=== PATIENT | male | born 1955 | race Caucasian/White ===

== ENCOUNTER 2016-04-27 11:31 | Emergency (ER) | payer OTHER ==
[~2016-04-27] VITALS: Ht 175.3 cm; Wt 113.4 kg
[~2016-04-27 11:31] MED LIST: ASPIRIN81 M4 PO; ATENOLOL-CHLOR1 EACH PO; BACTRIM DS TAB1 EACH PO; DILAUDID2 M1 PO; FIBER GUMMIES2 GM; GARLIC1 EAC1; GLUCOPHAGE1000 M1 PO; HUMALOG100 UNIT/1 SQ; JANUVIA100 M1 PO; KEFLEX500 M1 PO; LANTUS SOL100 UNIT/1 SC; LOSARTAN POTASS50 M1 PO; OMEGA 3-6-9 11200 MG; PRAVASTATIN SOD20 M2 PO; VITAMIN C500 M7
--- NOTE | 2016-04-27 12:02 | ED UPPER/LOWER EXTREMITY COMPL ---
History of Present Illness General Chief Complaint: Lower Extremity Problems Stated Complaint: SIB URGENT CARE CELLULITIS TO LT LEG Source: patient Exam Limitations: no limitations Vital Signs & Intake/Output Vital Signs & Intake/Output Vital Signs Date Time Temp Pulse Resp B/P Pulse O2 O2 Flow FiO2 Ox Delivery Rate 04/27 1512 99.0 22 98 / 1355 99.2 79 18 124/58 95 Room Air 04/27 1137 97.0 86 18 135/68 95 Room Air Room Air Allergies Coded Allergies: No Known Allergies (02/19/16) Reconcile Medications Amoxicillin/Potassium Clav (Augmentin 875-125 Tablet) 875 MG-125 MG TABLET 1 TAB PO BID CELLULITIS Ascorbic Acid (Vitamin C) (Unknown Strength) CAPSULE.ER (Unknown Dose) DAILY SUPPLEMENT (Reported) Aspirin (Aspirin*) 81 MG TAB.CHEW 1 TAB PO DAILY CARDIAC (Reported) Atenolol/Chlorthalidone (Atenolol-Chlorthalidone 100-25) 100 MG-25 MG TABLET 1 TAB PO DAILY HTN (Reported) Dulaglutide (Trulicity) 1.5 MG/0.5 ML PEN.INJCTR 1.5 U SC QW DM (Reported) Fish Oil/Borage/Flax/Om3,6,9#1 ([facility] 3-6-9 1,200 MG Softgel) (Unknown Strength) CAPSULE (Unknown Dose) BID SUPPLEMENT (Reported) Garlic (Unknown Strength) TABLET (Unknown Dose) DAILY SUPPLEMENT (Reported) Insulin Glargine,Hum.rec.anlog (Lantus Solostar) 100 UNIT/ML (3 ML) INSULN.PEN 70 UNIT SC BID DIABETES (Reported) Losartan Potassium 50 MG TABLET 1 TAB PO DAILY CARDIAC (Reported) Metformin HCl (Glucophage) 1,000 MG TABLET 1 TAB PO BID DIABETES (Reported) Pravastatin Sodium 20 MG TABLET 1 TAB PO DAILY HPL (Reported) Sitagliptin Phosphate (Januvia) 100 MG TABLET 1 TAB PO DAILY DM (Reported) Tramadol HCl 50 MG TABLET 1 TAB PO BIDP PRN PAIN Triage Note: TRIAGE: 60 Y/O MALE PRESENTS WITH , SENT IN BY URGENT CARE FOR EVAL OF LEFT LOWER EXTREMITY CELLULITIS. REPORTS AREA IS 23 CM BY 18 CM. REPORTS FEBRILE LAST NIGHT - TOOK ADVIL. AFEBRILE IN TRIAGE. Triage Nurses Notes Reviewed? yes Onset: Gradual Duration: day(s): (3) Timing: recent history Severity: moderate Severity Numbers: 8 Pain/Injury Location: Left: Leg, Thigh. Method of Injury: unknown Modifying Factors: Improves With: immobilization. Worsens With: movement. HPI: Patient is a 60-year-old male with history of diabetes, hypertension presenting to the emergency department with chief complaint of left lower extremity pain, swelling and redness is worsening over the past 2 days. He reports that he had similar symptoms 3 months ago when he was diagnosed with cellulitis. He reports that last night he had tactile chills and fevers, took his blood glucose level which was close to 400. He reports malaise associated with this. He went to the walk-in clinic this morning and they told him to come to the emergency department for evaluation because they thought that he may need IV antibiotics. He did draw a line around the redness last night and it seemed to extend outside the line today as well brought him to the urgent care. Denies any nausea or vomiting. Denies taking anything at home to help with pain. Denies taking any antibiotics since onset of symptoms. Denies chest pain or palpitations. He does report left calf pain, noticed left lower extremity edema diffusely over the past couple days progressively getting worse. Pain is worse with movement and palpation. Patient also reporting left testicular pain since yesterday. He noticed some swelling yesterday which has seemed to subside today but reports that the pain is still lingering. Denies any trauma. No urinary symptoms. Denies any discharge. (DONAVAN ASHFORD) Past History Travel History Traveled to [place] past 21 day No Medical History Any Pertinent Medical History? see below for history Cardiovascular: hypertension Endocrine: diabetes Cancer(s): prostate cancer Surgical History Surgical History: cholecystectomy, prostatectomy, RIGHT GREAT TOE WOUND DEBRIDEMENT RIGHT GROIN ABSCESS/DRAIN Psychosocial History What is your primary language Lao Tobacco Use: Never used ETOH Use: denies use Illicit Drug Use: denies illicit drug use Family History Hx Contributory? No (DONAVAN ASHFORD) Review of Systems Review of Systems Constitutional: Reports: see HPI, chills, fever. Comments Review of systems: See HPI, All other systems negative. Constitutional, weight loss HEENT: No visual changes no sore throat no congestion Cardiovascular: No chest pain ,palpitation , orthopnea Skin, no jaundice Respiratory: No dyspnea cough sputum or hemoptysis GI: No nausea no vomiting : No dysuria No hematuria Muscle skeletal: no back pain, no neck pain, Neurologic: No numbness no confusion, no hanks Psych: No stress anxiety or depression,. Heme/endocrine: No bruising no bleeding no polyuria or polydipsia Immunology: No splenectomy or history of AIDS (DONAVAN ASHFORD) Physical Exam Physical Exam General Appearance: no apparent distress, alert, awake, comfortable, obese Comments: Well-developed well-nourished person in no acute distress HEENT: Pupils equally round and reactive to light and accommodation. Nose is atraumatic. Neck: Supple, no lymphadenopathy, normal range of motion without pain or tenderness Back: Nontender, no CVA tenderness. Cardiovascular: Regular rate and rhythms no murmurs rubs or gallops, normal JVP Respiratory: Chest nontender. No respiratory distress.breath sounds clear to auscultation bilaterally Abdomen: Soft, obese, nontender ,nondistended, no appreciable organomegaly. Normal bowel sounds. No ascites. No rebound or guarding. gu: Normal external genitalia, tender to palpation of the left testicle, no obvious edema, no palpable masses on exam. No penile discharge appreciated on exam. No palpable hernias. Extremity: No edema noted on the right lower extremity. There is nonpitting edema extending from the dorsum of the left leg extending all the way up the left thigh. Pedal pulses are 2+ bilaterally. Limited range of motion of left lower knee secondary to pain and swelling. Nontender to palpation over the left patella. Left calf is tenderness to palpation. No palpable cord. Neuro: Alert oriented x3, motor sensory normal, cranial nerves II through XII grossly intact. Skin: Erythematous area extending from the left groin that is patchy, blanchable , flat, extends down to the left calf. Warm to palpation over this area. Psych: Mood and affect is normal, memory and judgment is normal. (DONAVAN ASHFORD) Progress Differential Diagnosis: DVT, gout, cellulitis, electrolyte abnormality, sepsis Plan of Care: Orders Procedure Date/time Status LACTIC ACID 04/27 1501 Complete FingerStick- Glucose 04/27 1201 Active BLOOD CULTURE 04/27 1201 Active LACTIC ACID 04/27 1201 Complete COMPREHENSIVE METABOLIC PANEL 04/27 120 Complete CBC WITHOUT DIFFERENTIAL 04/27 1201 Complete Current Medications Sig/Jasvir Start time Last Medication Dose Stop Time Status Admin Ketorolac 15 MG ONCE ONE 04/27 1245 CAN Tromethamine 04/27 1246 (Toradol) Laboratory Tests 04/27/16 1453: Lactic Acid 1.7 04/27/16 1213: Anion Gap 12, Estimated GFR > 60, BUN/Creatinine Ratio 25.6 H, Glucose 238 H, Lactic Acid 2.2 H, Calcium 9.7, Total Bilirubin 0.9, AST 82 H, ALT 56, Alkaline Phosphatase 80, Total Protein 7.1, Albumin 3.6, Globulin 3.5, Albumin/ Globulin Ratio 1.0 L, CBC w Diff NO MAN DIFF REQ, RBC 4.63 L, MCV 88.9, MCH 29.7, RDW 15.1 H, MPV 11.0 H, Gran % 75.5 H, Lymphocytes % 11.5 L, Monocytes % 12.4 H, Eosinophils % 0.5, Basophils % 0.1, Absolute Granulocytes 8.5 H, Absolute Lymphocytes 1.3, Absolute Monocytes 1.4 H, Absolute Eosinophils 0.1, Absolute Basophils 0, PUBS MCHC 33.4 Microbiology 04/27 1230 BLOOD: Blood Culture - RECD 04/27 1213 BLOOD: Blood Culture - RECD Diagnostic Imaging: Viewed by Me: Ultrasound. Discussed w/RAD: Ultrasound. Radiology Impression: PATIENT: HOUSTON RUBI PRESENT AGE: 60 PATIENT ACCOUNT NO: [id number] : 56 LOCATION: [facility] ORDERING PHYSICIAN: DONAVAN MELGOZA SERVICE DATE: 04/27/16 EXAM TYPE: US - US-UNILATERAL VENOUS DOPPLER EXAMINATION: US TRIPLEX LOWER EXTREMITY, LEFT CLINICAL INFORMATION: Leg pain and swelling COMPARISON: None TECHNIQUE: Color- flow triplex imaging with spectral analysis and compression Doppler were performed on the left lower extremity. FINDINGS: Respiratory variation, normal compression and augmented flow are noted throughout the lower extremity. The visualized common femoral vein, superficial femoral vein, profunda femoral vein, popliteal vein and midcalf peroneal and posterior tibial venous segments show no evidence of deep venous thrombosis. There is no Armendariz's cyst. No popliteal artery aneurysm. Multiple inguinal lymph nodes are present. IMPRESSION: Normal triplex scan without evidence of deep venous thrombosis involving the left lower extremity. DICTATED BY: JEAN GALLEGO MD , PATIENT: HOUSTON RUBI PRESENT AGE: 60 PATIENT ACCOUNT NO: [id number] : 56 LOCATION: [facility] ORDERING PHYSICIAN: DONAVAN MELGOZA SERVICE DATE: 04/27/16 EXAM TYPE: US - US-TESTICULAR EXAMINATION: US TESTICULAR CLINICAL INFORMATION: 60- year-old man with left testicular pain. COMPARISON: None TECHNIQUE: Targeted grayscale and color and spectral Doppler assessment of the scrotum was performed. FINDINGS: The right testicle measures 4.7 x 1.9 x 2.9 cm, for an estimated volume of 18.3 mL. The left testicle measures 3.2 x 1.8 x 3.2 cm, for an estimated volume of 12.6 mL. The sonographic appearance of both testicles is normal. No mass or abnormal calcifications are visible. The epididymis is normal in appearance on both sides. Both testicles demonstrate normal color and spectral arterial and venous flow. There is a small hydrocele on the right side. IMPRESSION: Normal sonographic appearance of the scrotum. Small right hydrocele. Comments: On arrival patient is afebrile no acute distress. He does have obvious cellulitis left lower extremity. Cannot exclude DVT. Patient will go for ultrasound of the left lower extremity as well as the testicle. Patient medicated with IV Unasyn, IV fluids, IV Toradol for pain. Patient warmed of all lab work results and imaging study results were no signs of DVT. Likely cellulitis. Patient reports that symptoms are improving. Patient is afebrile here in the emergency department, slight elevation in white blood cell come. Patient started on oral antibiotics and will follow-up with his primary care physician early next week or return for worsening symptoms. (LINDA MELGOZA,DONAVAN) Departure Departure Time of Disposition: 1351 Disposition: HOME OR SELF CARE Condition: Stable Clinical Impression Primary Impression: Cellulitis Qualifiers: Site of cellulitis: extremity Site of cellulitis of extremity: lower extremity Laterality: left Qualified Code: L03.116 - Cellulitis of left lower limb Referrals: DAVID MCCALLUM DO (PCP/Family) Additional Instructions: Make a follow-up appointment with your primary care physician for this coming week. Take antibiotics as prescribed. Elevate your leg as much as possible. For severe pain take tramadol as prescribed. Return for worsening symptoms or concerns. Departure Forms: Customer Survey General Discharge Information Prescriptions: Current Visit Scripts Tramadol HCl 1 TAB PO BIDP PRN PAIN #10 TAB Amoxicillin/Potassium Clav (Augmentin 875-125 Tablet) 1 TAB PO BID #20 TAB (DONAVAN ASHFORD) PA/RACK WORKER Co-Sign Statement Statement: ED Attending supervision documentation- [] I saw and evaluated the patient. I have also reviewed all the pertinent lab results and diagnostic results. I agree with the findings and the plan of care as documented in the PA's/RACK WORKER's documentation. x I have reviewed the ED Record and agree with the PA's/RACK WORKER's documentation. [] Additions or exceptions (if any) to the PAs/RACK WORKER's note and plan are summarized below: [] (DELMY GARCIA,KYLE)
[2016-04-27] MEDS ORDERED: TRULICITY1.5 MG/0.5 SC (12:05)
[2016-04-27 12:46] LABS: ABSOLUTE BASOPHIL COUNT 0 /CUMM (0.0-0.2); ABSOLUTE EOSINOPHIL COUNT 0.1 /CUMM (0.0-0.7); ABSOLUTE GRANULOCYTE CT 8.5 /CUMM (1.4-6.5); ABSOLUTE LYMPH COUNT 1.3 /CUMM (1.2-3.4); ABSOLUTE MONOCYTE COUNT 1.4 /CUMM (0.10-0.60); BASOPHIL % 0.1 % (0.0-2.0); EOSINOPHIL % 0.5 % (0-5); GRANULOCYTE % 75.5 % (42.2-75.2); HEMATOCRIT 41.1 % (42-52); MEAN CORPUSCULAR HGB 29.7 PG (27.0-31.0); MEAN CORPUSCULAR HGB CONC 33.4 G/DL (33.0-37.0); MEAN CORPUSCULAR VOLUME 88.9 FL (80.0-94.0); PLATELET COUNT 96 /CUMM (130-400); RBC DISTRIBUTION WIDTH 15.1 % (11.5-14.5); RED BLOOD CELL CT 4.63 /CUMM (4.70-6.10); WHITE BLOOD CELL COUNT 11.3 /CUMM (4.8-10.8)
--- NOTE | 2016-04-27 13:27 | ULTRASOUND REPORT ---
EXAMINATION: US TRIPLEX LOWER EXTREMITY, LEFT CLINICAL INFORMATION: Leg pain and swelling COMPARISON: None TECHNIQUE: Color-flow triplex imaging with spectral analysis and compression Doppler were performed on the left lower extremity. FINDINGS: Respiratory variation, normal compression and augmented flow are noted throughout the lower extremity. The visualized common femoral vein, superficial femoral vein, profunda femoral vein, popliteal vein and midcalf peroneal and posterior tibial venous segments show no evidence of deep venous thrombosis. There is no Armendariz's cyst. No popliteal artery aneurysm. Multiple inguinal lymph nodes are present. IMPRESSION: Normal triplex scan without evidence of deep venous thrombosis involving the left lower extremity.
--- NOTE | 2016-04-27 13:40 | ULTRASOUND REPORT ---
EXAMINATION: US TESTICULAR CLINICAL INFORMATION: 60-year-old man with left testicular pain. COMPARISON: None TECHNIQUE: Targeted grayscale and color and spectral Doppler assessment of the scrotum was performed. FINDINGS: The right testicle measures 4.7 x 1.9 x 2.9 cm, for an estimated volume of 18.3 mL. The left testicle measures 3.2 x 1.8 x 3.2 cm, for an estimated volume of 12.6 mL. The sonographic appearance of both testicles is normal. No mass or abnormal calcifications are visible. The epididymis is normal in appearance on both sides. Both testicles demonstrate normal color and spectral arterial and venous flow. There is a small hydrocele on the right side. IMPRESSION: Normal sonographic appearance of the scrotum. Small right hydrocele.
[2016-04-27] MEDS ORDERED: TRAMADOL HCL50 M1 PO (13:53)
[2016-04-27] MEDS ORDERED: AUGMENTIN 875-1 EACH PO (13:53)
[2016-04-27 13:55] VITALS: BP 124/58
== END 2016-04-27 15:14 ==
LOC: ERH 11:31
PROVIDERS: Physician Assistant
DX: L03.314 Cellulitis of groin (principal); L03.116 Cellulitis of left lower limb; E11.9 Type 2 diabetes mellitus without complications; Z79.84 Long term (current) use of oral hypoglycemic drugs
CPT/HCPCS: 87040; 96361; 96374; 96375; J1885

== ENCOUNTER 2017-04-14 11:17 | Inpatient (IN) | payer OTHER ==
[~2017-04-14] VITALS: Ht 175.3 cm; Wt 111.1 kg
[~2017-04-14 11:17] MED LIST changes: +ANESTHESIA10 MG/1 M1 IV; +AUGMENTIN 875-1 EACH PO; +BASAGLAR K100 UNIT/1 SC; +HEPARIN-1/25000 UNI1 IV; +HUMALOG KW100 UNIT/1 SC; +JARDIANCE25 M1 PO; -OMEGA 3-6-9 11200 MG; +OMEGA 3-6-9 11200 MG PO; +PRAVASTATIN SOD40 M2 PO; +TRAMADOL HCL50 M1 PO; +TRULICITY1.5 MG/0.5 SC; +VITAMIN C500 M7 PO; +VITAMIN D1000 UNIT PO
--- NOTE | 2017-04-14 11:40 | ED GENERAL ADULT ---
See Addendum History of Present Illness General Chief Complaint: General Adult Stated Complaint: ABD CRAMPS, HIGH BLOOD SUGAR, BLACK STOOL Source: patient Exam Limitations: no limitations Vital Signs & Intake/Output Vital Signs & Intake/Output Vital Signs Date Time Temp Pulse Resp B/P B/P Pulse O2 O2 Flow FiO2 Mean Ox Delivery Rate 04/14 2101 83 112/62 04/14 1939 97.8 87 20 110/60 97 Room Air 04/14 1857 116/53 04/14 1847 98.2 66 18 89/51 99 Room Air 04/14 1643 97.7 84 18 104/51 98 Room Air 04/14 1407 97.7 85 20 113/55 99 Room Air 04/14 1137 96.7 103 80/43 98 Room Air Allergies Coded Allergies: No Known Allergies (02/19/16) Reconcile Medications Aspirin (Aspirin*) 81 MG TAB.CHEW 1 TAB PO DAILY HEART HEALTH (Reported) Atorvastatin Calcium 80 MG TABLET 1 TAB PO 1800 CHOLESTEROL (Reported) Carvedilol 12.5 MG TABLET 1 TAB PO BID HEART (Reported) Dulaglutide (Trulicity) 1.5 MG/0.5 ML PEN.INJCTR 1 INJ SC We DIABETES ( Reported) Empagliflozin (Jardiance) 25 MG TABLET 1 TAB PO DAILY DIABETES (Reported) Famotidine 20 MG TABLET 1 TAB PO BID GI (Reported) Hydralazine HCl 50 MG TABLET 1 TAB PO TID HEART (Reported) Hydrochlorothiazide 25 MG TABLET 1 TAB PO DAILY WATER RETENTION (Reported) Insulin Glargine,Hum.rec.anlog (Lantus Solostar) 100 UNIT/ML (3 ML) INSULN.PEN 20 UNIT SC QPM DIABETES (Reported) Insulin Lispro (Humalog) 100 UNIT/ML VIAL 5 UNIT SC TID DIABETES (Reported) Magnesium Oxide 400 MG TABLET 1 TAB PO BID SUPPLEMENT (Reported) Melatonin 3 MG TABLET 2 TAB PO QPM SLEEP (Reported) Metformin HCl 1,000 MG TABLET 1 TAB PO BID DIABETES (Reported) Mexiletine HCl 150 MG CAPSULE 1 TAB PO BID UNKNOWN (Reported) Potassium Chloride 20 MEQ TAB.ER.PRT 1 TAB PO DAILY SUPPLEMENT (Reported) Suvorexant (Belsomra) 20 MG TABLET 1 TAB PO QPM SLEEP (Reported) Ticagrelor (Brilinta) 90 MG TABLET 1 TAB PO BID BLOOD THINNER (Reported) Valsartan 320 MG TABLET 1 TAB PO DAILY HEART (Reported) Triage Note: TO ED WITH C/O ABD CRAMPING AND BLACK TARRY STOOLS SINCE LAST NIGHT. HX NV WITH STENTS 4 MONTHS AGO, TAKING BRILLINTA. +DIZZINESS. ALSO REPORTS BLOOD SUGARS >300 FOR THAT PAST COUPLE DAYS. Triage Nurses Notes Reviewed? yes Onset: Abrupt Duration: hour(s): Timing: recent history HPI: 04/14/17 12 PM 61-year-old male presents to the emergency department complaining of weakness, he says he recently had a cardiac arrest and NV. He status post stents. This is approximately one month ago. He was started on anticoagulation therapy. Now he's had black stools. He also has crampy lower abdominal pain. He also says his sugars have been running high. He denies chest pain or shortness of breath. He does admit to weakness. Past History Travel History Traveled to [place] past 21 day No Medical History Any Pertinent Medical History? see below for history Neurological: NONE EENT: NONE Cardiovascular: hypertension, hyperlipidemia Respiratory: obstructive sleep apnea Gastrointestinal: GERD Hepatic: NONE Renal: NONE Musculoskeletal: NONE Psychiatric: NONE Endocrine: diabetes Blood Disorders: NONE Cancer(s): prostate cancer PROVISIONING SPECIALIST/Reproductive: NONE History of MRSA: No History of VRE: No History of CDIFF: No Influenza Vaccine: 11/25/15 Surgical History Surgical History: cholecystectomy, prostatectomy, RIGHT GREAT TOE WOUND DEBRIDEMENT RIGHT GROIN ABSCESS/DRAIN Psychosocial History Who do you live with Spouse What is your primary language Palestinian Family History Family History, If Any: FATHER Coronary artery bypass surgery Hx Contributory? No Review of Systems Review of Systems Constitutional: Denies: fever. EENTM: Denies: visual changes. Respiratory: Denies: short of breath. Cardiovascular: Denies: chest pain. GI: Reports: abdominal pain. Genitourinary: Reports: no symptoms. Musculoskeletal: Reports: no symptoms. Skin: Denies: rash. Neurological/Psychological: Reports: no symptoms. Hematologic/Endocrine: Reports: see HPI. Immunologic/Allergic: Reports: no symptoms. Physical Exam Physical Exam General Appearance: alert, awake, anxious, moderate distress Head: atraumatic, normal appearance Eyes: Bilateral: normal appearance, PERRL, EOMI. Ears, Nose, Throat: normal pharynx, normal ENT inspection Neck: normal inspection, supple, full range of motion Respiratory: normal breath sounds, chest non-tender, no respiratory distress Cardiovascular: irregularly irregular Peripheral Pulses: 4+ radial (R), 4+ radial (L) Gastrointestinal: soft, non-tender Rectal: heme positive stool Back: normal range of motion Extremities: normal inspection Neurologic/Psych: no motor/sensory deficits, awake, alert, oriented x 3 Skin: intact, normal color, warm/dry Core Measures ACS in differential dx? Yes No ASA d/t Active Bleeding (GI bleed) CVA/TIA Diagnosis: No Sepsis Present: No Sepsis Focused Exam Completed? No Progress Differential Diagnoses I considered the following diagnoses in my evaluation of the patient: Plan of Care: Orders Procedure Date/time Status Nothing by Mouth 04/15 B Active CBC WITHOUT DIFFERENTIAL 04/15 0600 Active BASIC ELECTROLYTES PLUS BUN&CR 04/15 0600 Active EKG 04/15 0600 Active TROPONIN LEVEL 04/15 0000 Active CBC WITHOUT DIFFERENTIAL 04/15 0000 Active EKG 04/15 0000 Active Clear Liquid Diet 04/14 D Complete Vital Signs 04/14 1950 Active Teach/Educate 04/14 1950 Active Pain Treatment and Response 04/14 1950 Active Nutritional Intake, Monitor 04/14 1950 Active Isolation 04/14 1950 Active Intake & Output 04/14 1950 Active Patient Care Conference 04/14 1950 Active Activity/Ambulation 04/14 1950 Active TROPONIN LEVEL 04/14 1800 Complete CBC WITHOUT DIFFERENTIAL 04/14 1800 Complete EKG 04/14 1800 Active Pathway - chart 04/14 1626 Active Pathway - chart 04/14 1625 Active House Staff 04/14 1625 Active Patient Data 04/14 1625 Active Code Status 04/14 1625 Active Admit to inpatient 04/14 1526 Active Vital Signs 04/14 1526 Active Code Status 04/14 1526 Complete Patient Data 04/14 1511 Active FingerStick- Glucose 04/14 1232 Active Intake & Output 04/14 1221 Active EKG 04/14 1209 Active TROPONIN LEVEL 04/14 1206 Complete PROTHROMBIN TIME 04/14 1206 Complete COMPREHENSIVE METABOLIC PANEL 04/14 1206 Complete CBC WITHOUT DIFFERENTIAL 04/14 1206 Complete TYPE & SCREEN (NOT X-MATCH) 04/14 1206 Complete CONTIN. POSITIVE AIRWAY PRESS 04/14 UNK Active VTE Mechanical Prophylaxis 04/14 UNK Active Vital Signs 04/14 UNK Complete MISTAKE 04/14 UNK Active Telemetry/Cartoon Animator 04/14 UNK Active Hemoccult 04/14 UNK Active FingerStick- Glucose 04/14 UNK Complete PHYSICIAN CONSULT 04/14 UNK Active ECHOCARDIOGRAM 04/14 UNK Active Current Medications Sig/Jasvir Start time Last Medication Dose Stop Time Status Admin Aspirin 81 MG DAILY 04/15 1000 CAN (Aspirin) Carvedilol 12.5 MG BID 04/14 220 AC 04/14 (Coreg) 210 Insulin Detemir 20 UNITS QPM 04/14 2199 AC 04/14 (Levemir) 2099 Magnesium Oxide 400 MG BID 04/14 2199 AC 04/14 (Mag-Ox) 2100 Melatonin 6 MG QPM 04/14 2199 AC 04/14 (Melatonin) 2099 Mexiletine HCl 150 MG BID 04/14 2199 AC 04/14 (Mexitil 150MG 2100 Capsule) Ticagrelor 90 MG BID 04/14 2199 CAN (Brilinta) Atorvastatin Calcium 80 MG 1800 04/14 1800 AC 04/14 (Lipitor) 2056 Insulin Aspart 0 TIDAC 04/14 1715 AC (NovoLOG) Acetaminophen 650 MG Q6P PRN 04/14 1630 AC (Tylenol) Pantoprazole Sodium 40 MG DAILY 04/14 1630 AC 04/14 (Protonix) 1714 Sodium Chloride 1,000 ML .[id number] 04/14 1630 AC 04/14 (Normal Saline 0.9%) 04/15 1909 1714 Laboratory Tests 04/14/17 1843: Troponin I 0.77 *H, CBC w Diff NO MAN DIFF REQ, RBC 3.05 L, MCV 87.6, MCH 27.9, MCHC 31.8 L, RDW 15.4 H, MPV 10.0, Gran % 62.3, Lymphocytes % 22.2, Monocytes % 14.5 H, Eosinophils % 0.7, Basophils % 0.3, Absolute Granulocytes 6.7 H, Absolute Lymphocytes 2.4, Absolute Monocytes 1.6 H, Absolute Eosinophils 0.1, Absolute Basophils 0 04/14/17 1207: Anion Gap 13, Estimated GFR > 60, BUN/Creatinine Ratio 53.6 H, Glucose 249 H, Calcium 9.6, Total Bilirubin 0.5, AST 38, ALT 32, Alkaline Phosphatase 63, Troponin I 0.94 *H, Total Protein 6.5, Albumin 3.5, Globulin 3.0, Albumin/ Globulin Ratio 1.2, PT 13.0 H, INR 1.24 H, CBC w Diff MAN DIFF ORDERED, RBC 3.25 L, MCV 87.3, MCH 28.6, MCHC 32.8 L, RDW 15.5 H, MPV 10.2, Gran % 50.4, Lymphocytes % 26.0, Monocytes % 21.2 H, Eosinophils % 1.9, Basophils % 0.5, Absolute Granulocytes 4.4, Absolute Lymphocytes 2.3, Absolute Monocytes 1.9 H, Absolute Eosinophils 0.2, Absolute Basophils 0, Platelet Estimate ADEQUATE, Hypochromic-Microcytic 2+, Anisocytosis 1+ Initial ED EKG: NSR Prior EKG: unchanged Departure Departure Disposition: STILL A PATIENT Condition: Stable Clinical Impression Primary Impression: GI bleed Secondary Impressions: Anemia, Coagulopathy, Elevated troponin Referrals: Margot Pierre DO (PCP/Family) Departure Forms: Customer Survey General Discharge Information Admission Note Spoke With: Garry GARCIA,Travis Anderson Documentation of Exam: Documentation of any treatments & extenuating circumstances including Concerns Regarding Discharge (functional status, medication knowledge or non-compliance, living conditions, etc.) that warrant an admission rather than observation: [The patient needs admission for serial hemoglobin and hematocrits, trending of cardiac enzymes, cardiology consultation-spoke with Dr. Beasley who agreed with admission to telemetry, spoke to Dr. Micah Quintanilla will consult, spoke to Dr. Lan accepted the patient to telemetry] Critical Care Note Critical Care Note Critical Care Time: 30-74 min
[2017-04-14] MEDS ORDERED: METFORMIN HCL1000 M1 PO (12:11)
[2017-04-14] MEDS ORDERED: JARDIANCE25 M1 PO (12:12)
[2017-04-14] MEDS ORDERED: BRILINTA90 M1 PO (12:13)
[2017-04-14] MEDS ORDERED: LANTUS SOL100 UNIT/1 SC (12:13)
[2017-04-14] MEDS ORDERED: MEXILETINE HCL150 M1 PO (12:14)
[2017-04-14] MEDS ORDERED: MELATONIN3 M4 PO (12:14)
[2017-04-14] MEDS ORDERED: POTASSIUM CHLO20 ME2 PO (12:14)
[2017-04-14] MEDS ORDERED: HYDRALAZINE HCL50 M1 PO (12:16)
[2017-04-14] MEDS ORDERED: FAMOTIDINE20 M1 PO (12:16)
[2017-04-14] MEDS ORDERED: HUMALOG100 UNIT/2 SC (12:16)
[2017-04-14] MEDS ORDERED: HYDROCHLOROTHIA25 M1 PO (12:16)
[2017-04-14] MEDS ORDERED: ASPIRIN81 M4 PO (12:17)
[2017-04-14] MEDS ORDERED: CARVEDILOL12.5 M1 PO (12:17)
[2017-04-14] MEDS ORDERED: ATORVASTATIN CA80 M1 PO (12:17)
[2017-04-14] MEDS ORDERED: BELSOMRA20 M1 PO (12:18)
[2017-04-14] MEDS ORDERED: MAGNESIUM OXID400 M1 PO (12:18)
[2017-04-14] MEDS ORDERED: TRULICITY1.5 MG/0.5 SC (12:18)
[2017-04-14] MEDS ORDERED: VALSARTAN320 M1 PO (12:19)
[2017-04-14 12:20] LABS: ABSOLUTE BASOPHIL COUNT 0 /CUMM (0.0-0.2); ABSOLUTE EOSINOPHIL COUNT 0.2 /CUMM (0.0-0.7); ABSOLUTE GRANULOCYTE CT 4.4 /CUMM (1.4-6.5); ABSOLUTE LYMPH COUNT 2.3 /CUMM (1.2-3.4); ABSOLUTE MONOCYTE COUNT 1.9 /CUMM (0.10-0.60); BASOPHIL % 0.5 % (0.0-2.0); EOSINOPHIL % 1.9 % (0-5); GRANULOCYTE % 50.4 % (42.2-75.2); HEMATOCRIT 28.4 % (42-52); MEAN CORPUSCULAR HGB 28.6 PG (27.0-31.0); MEAN CORPUSCULAR HGB CONC 32.8 G/DL (33.0-37.0); MEAN CORPUSCULAR VOLUME 87.3 FL (80.0-94.0); MEAN PLATELET VOLUME 10.2 FL (7.4-10.4); PLATELET COUNT 171 /CUMM (130-400); RBC DISTRIBUTION WIDTH 15.5 % (11.5-14.5); RED BLOOD CELL CT 3.25 /CUMM (4.70-6.10); WHITE BLOOD CELL COUNT 8.8 /CUMM (4.8-10.8)
--- NOTE | 2017-04-14 14:58 | CT SCAN REPORT ---
EXAMINATION: CT ABDOMEN AND PELVIS WITH CONTRAST CLINICAL INFORMATION: Gastrointestinal bleed and abdominal pain. COMPARISON: 12/08/2016 TECHNIQUE: Multidetector volumetric imaging was performed of the abdomen and pelvis following IV administration of 95 mL of Optiray 320 intravenous contrast. Sagittal and coronal reformatted images were obtained on the technologist's workstation. DLP: 1005 mGy-cm FINDINGS: LUNG BASES: Dual-chamber cardiac pacemaker/ICD in place. Atherosclerotic calcification of coronary arteries. No pericardial or pleural effusion. No acute findings in the visualized lung bases. LIVER, GALLBLADDER, AND BILIARY TREE: The cirrhotic liver has nodular contour and the left lobe is hypertrophied. No evidence of hepatic mass, intrahepatic bile duct dilatation or other new finding compared to 12/08/2016. Gallbladder is surgically absent. PANCREAS: Unremarkable. SPLEEN: Prominent spleen measures up to 15 cm maximum dimension. ADRENAL GLANDS: Unremarkable. KIDNEYS AND URETERS: Kidneys are normal in size. 1 cm cortical cyst within the interpolar region of the right kidney. Also, there are small, subcentimeter sized cysts in each upper pole. Small peripelvic cysts of the left kidney. No nephrolithiasis or hydronephrosis. Bilateral perinephric edema, unchanged compared to 12/08/2016. BLADDER: Unremarkable. GASTROINTESTINAL TRACT: Stomach is well distended and has normal wall thickness. Bowel loops are normal in caliber. Appendix is normal. No focal bowel wall thickening or pericolonic fat stranding. No evidence of acute inflammation or obstruction along the gastrointestinal tract. No ascites or pneumoperitoneum. ABDOMINAL WALL: Small fat-containing umbilical hernia is unchanged. LYMPH NODES: The largest lymph node in the periportal region is 1.3 cm short axis dimension, unchanged compared to 12/08/2016. No retroperitoneal, iliac or mesenteric lymphadenopathy. Again noted are mildly enlarged lymph nodes of the left inguinal region, unchanged compared to 12/08/2016. VASCULAR: Mild atherosclerotic calcification of the aorta without aneurysm. Inferior vena cava is unremarkable. PELVIC VISCERA: Status post prostatectomy no pelvic mass or free fluid. OSSEOUS STRUCTURES: No acute findings in the degenerated thoracolumbar spine. No aggressive osseous lesions. IMPRESSION: 1. No acute imaging findings within the abdomen or pelvis compared to 12/08/2016. 2. Chronic cirrhosis and splenomegaly. Stable appearance of the reactive periportal lymphadenopathy. No ascites. 3. No acute findings along the gastrointestinal tract. 4. Mildly enlarged left inguinal lymph nodes remain unchanged.
--- NOTE | 2017-04-14 15:24 | History & Physical ---
Hitesh GARCIA,Yenni 04/14/17 1517: General Information and HPI MD Statement: I have seen and personally examined HOUSTON RUBI and documented this H&P. The patient is a 61 year old M who presented with a patient stated chief complaint of []. Source of Information: patient, family, old records Exam Limitations: no limitations History of Present Illness: Patient is a 61-year-old male with past medical history of hyperlipidemia, hypertension, diabetes, obstructive sleep apnea on CPAP, CAD status post recent stent 4, placed on December 10, 2016 at [place] and s/p AICD placement on December 18, 2016 presenting this admission with chief complaint of black tarry stools. Per patient he started experiencing diffuse abdominal cramping 1 day prior to admission. States he was awake most of the night due to the abdominal discomfort. Patient notes nothing improved or worsened the pain. Patient reports 2 dark black tarry bowel movements overnight. Patient denies any bright red blood per rectum or blood on the toilet paper. Patient denies nausea, vomitting or hematemesis. Patient endorses lightheadedness and dizzines. Patient also notes weakness over the past 1 day and states that it feels as though he had just been discharged from the hospital during his previous admission. Patient notes that prior to this past day he has felt more energetic and much stronger due to cardiac rehab. Patient was previously admitted to [facility] on December 09 for leg cellulitis. During that admission he had Vtach and cardiac arrest and he was found to have elevated troponin in the 50s. Patient was subsequently transferred to [place] where he had drug eluting stents placed and an AICD. Patient was started on aspirin and brilinta. Patient has not had any issues up until this admission. Patient notes he has never had these type of symptoms in the past. Patient's hand washer is Dr. Kruger. Allergies/Medications Allergies: Coded Allergies: No Known Allergies (02/19/16) Home Med list Aspirin (Aspirin*) 81 MG TAB.CHEW 1 TAB PO DAILY HEART HEALTH (Reported) Atorvastatin Calcium 80 MG TABLET 1 TAB PO 1800 CHOLESTEROL (Reported) Carvedilol 12.5 MG TABLET 1 TAB PO BID HEART (Reported) Dulaglutide (Trulicity) 1.5 MG/0.5 ML PEN.INJCTR 1 INJ SC We DIABETES ( Reported) Empagliflozin (Jardiance) 25 MG TABLET 1 TAB PO DAILY DIABETES (Reported) Famotidine 20 MG TABLET 1 TAB PO BID GI (Reported) Hydralazine HCl 50 MG TABLET 1 TAB PO TID HEART (Reported) Hydrochlorothiazide 25 MG TABLET 1 TAB PO DAILY WATER RETENTION (Reported) Insulin Glargine,Hum.rec.anlog (Lantus Solostar) 100 UNIT/ML (3 ML) INSULN.PEN 20 UNIT SC QPM DIABETES (Reported) Insulin Lispro (Humalog) 100 UNIT/ML VIAL 5 UNIT SC TID DIABETES (Reported) Magnesium Oxide 400 MG TABLET 1 TAB PO BID SUPPLEMENT (Reported) Melatonin 3 MG TABLET 2 TAB PO QPM SLEEP (Reported) Metformin HCl 1,000 MG TABLET 1 TAB PO BID DIABETES (Reported) Mexiletine HCl 150 MG CAPSULE 1 TAB PO BID UNKNOWN (Reported) Potassium Chloride 20 MEQ TAB.ER.PRT 1 TAB PO DAILY SUPPLEMENT (Reported) Suvorexant (Belsomra) 20 MG TABLET 1 TAB PO QPM SLEEP (Reported) Ticagrelor (Brilinta) 90 MG TABLET 1 TAB PO BID BLOOD THINNER (Reported) Valsartan 320 MG TABLET 1 TAB PO DAILY HEART (Reported) Past History Travel History Traveled to [place] past 21 day No Medical History Neurological: NONE EENT: NONE Cardiovascular: hypertension, hyperlipidemia, myocardial infarction Respiratory: obstructive sleep apnea Gastrointestinal: GERD Hepatic: NONE Renal: NONE Musculoskeletal: NONE Psychiatric: NONE Endocrine: diabetes Blood Disorders: NONE Cancer(s): prostate cancer 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 Cardiovascular: Reports: see HPI, peripheral edema. Respiratory: Reports: no symptoms. GI: Reports: see HPI. Genitourinary: Reports: no symptoms. Musculoskeletal: Reports: no symptoms. Skin: Reports: no symptoms. Neurological/Psychological: Reports: numbness, weakness. Hematologic/Endocrine: Reports: no symptoms. Exam & Diagnostic Data Last 24 Hrs of Vital Signs/I&O Vital Signs Date Time Temp Pulse Resp B/P B/P Pulse O2 O2 Flow FiO2 Mean Ox Delivery Rate 04/14 1407 97.7 85 20 113/55 99 Room Air 04/14 1137 96.7 103 80/43 98 Room Air Intake & Output 04/14 1600 04/14 0800 04/14 0000 Intake Total 1000 Output Total Balance 1000 Intake, IV 1000 Patient 245 lb Weight Weight Reported by Patient Measurement Method Physical Exam General Appearance Alert, Oriented X3, Cooperative, No Acute Distress Skin Temp/Moisture Exam: Warm/Dry HEENT Atraumatic, PERRLA, EOMI, Mucous Membr. moist/pink Cardiovascular Regular Rate, Normal S1, Normal S2, No Murmurs Lungs Clear to Auscultation, Normal Air Movement Abdomen Normal Bowel Sounds, Soft, mild epigastric pain on deep palpation Neurological Normal Speech, Strength at 5/5 X4 Ext, Normal Tone, Sensation Intact, Cranial Nerves 3-12 NL Extremities No Clubbing, No Cyanosis, Normal Pulses, No Tenderness/Swelling, left lower extremity 1+ edema Vascular Normal Pulses, Pulses Symmetrical Last 24 Hrs of Labs/[place]: Laboratory Tests 04/14/17 1207: Anion Gap 13, Estimated GFR > 60, BUN/Creatinine Ratio 53.6 H, Glucose 249 H, Calcium 9.6, Total Bilirubin 0.5, AST 38, ALT 32, Alkaline Phosphatase 63, Troponin I 0.94 *H, Total Protein 6.5, Albumin 3.5, Globulin 3.0, Albumin/ Globulin Ratio 1.2, PT 13.0 H, INR 1.24 H, CBC w Diff MAN DIFF ORDERED, RBC 3.25 L, MCV 87.3, MCH 28.6, MCHC 32.8 L, RDW 15.5 H, MPV 10.2, Gran % 50.4, Lymphocytes % 26.0, Monocytes % 21.2 H, Eosinophils % 1.9, Basophils % 0.5, Absolute Granulocytes 4.4, Absolute Lymphocytes 2.3, Absolute Monocytes 1.9 H, Absolute Eosinophils 0.2, Absolute Basophils 0, Platelet Estimate ADEQUATE, Hypochromic-Microcytic 2+, Anisocytosis 1+ Diagnostic Data Other Results CT Abdomen/Pelvis w/contrast: 1. No acute imaging findings within the abdomen or pelvis compared to 12/08/2016. 2. Chronic cirrhosis and splenomegaly. Stable appearance of the reactive periportal lymphadenopathy. No ascites. 3. No acute findings along the gastrointestinal tract. 4. Mildly enlarged left inguinal lymph nodes remain unchanged. Assessment/Plan Assessment: Patient is a 61-year-old male with past medical history of hyperlipidemia, hypertension, diabetes, obstructive sleep apnea on CPAP, CAD status post recent stent 4, placed on December 10, 2016 at [place] and s/p AICD placement on December 18, 2016 presenting this admission with chief complaint of black tarry stools. Patient will be admitted to telemetry for management of the followin. Anemia likely 2/2 to GI Bleed - Admit to telemetry - IV NS - Monitor CBC - Guiac all stools - GI consult - NPO after midnight for EGD tomorrow - GI prophylaxis with IV protonix BID - GI consulted. Appreciate recommendations - Guiac all stool, monitor vitals including orthostats 2. Elevated troponin. Likely Demand Ischemia/Type II [place] - admit and monitor on tele - serial EKG and troponin - cardiology consult - ECHO 3. CAD s/p drug-eluting stents (x4) and AICD - Please continue carvedilol, atrovastatin - hold aspirin and brilinta per cardiology 4. Electrolyte abnormalities: Hyperkalemia - monitor K+ - monitor for EKG changes 5. Chronic conditions: HUGH, HTN, DM, HLD - continue CPAP ( to bring patient's machine from home) - hold antihypertensives in setting of GI bleed - accucheck, insulin SS and levemir 20 units qhs - continue atorvastatin Code: full code DVT prophylaxis: mechanical only in setting of GI bleed NPO As Ranked By This Provider Problem List: 1. GI bleed 2. Anemia 3. Elevated troponin Core Measures/Misc (11/10) Acute Coronary Syndrome ACS Diagnosis: No Congestive Heart Failure Congestive Heart Failure Diagnosis No Cerebrovascular Accident CVA/TIA Diagnosis: No VTE (View Protocol) VTE Risk Factors Age>40 No Mechanical VTE Prophylaxis d/t N/A MechProphylax Ordered No VTE Pharm Prophylaxis d/t Bleeding (Active) Sepsis (View protocol) Sepsis Present: Ra Hernadez 04/14/17 1736: Resident Review Statement Resident Statement: examined this patient, discussed with psychology intern, agreed with psychology intern, discussed with family, reviewed EMR data (avail), discussed with nursing , discussed with case mgmt, reviewed images, amended to note Other Findings: This is a 61-year-old male with past medical history significant for coronary artery disease, [place], status post 4 drug-eluting stents placement in November 2016, ICD placement 12/18/2016, cardiac arrest status post CPR and intubation in 12/09, type 2 diabetes mellitus, hypertension, hyperlipidemia, insomnia, GERD, obstructive sleep apnea on CPAP, prostate cancer status post prostatectomy presented to the emergency room for evaluation of black tarry stools since last night. Patient was admitted to [facility] in November 2016 for left leg cellulitis. Hospital course was complicated with cardiac arrest, pulseless V. tach, status post CPR and shock, intubation. Troponin was elevated up to 52. Patient was transferred to [facility] for stent placement. He underwent 4 drug-eluting stents on 12/10/2016, ICD placement 12/18/2016. Since then he has been taking aspirin 81 mg and brilinta 90 twice daily. Patient reports abdominal cramps since last night associated with 2 episodes of black tarry stools. Denies any nausea, vomiting, severe abdominal pain, hematemesis, hematochezia. This is the first time he noticed black colored stools since he started taking aspirin and brilinta. Patient denies any dizziness or lightheadedness, chest pain, shortness of breath, palpitations. However he reports generalized weakness. Denies taking [id number] pain medications, and NSAIDS. Patient denies any fever, chills, palpitations, chest pain, short of breath, nausea, vomiting, change in bladder habits. He has been following up with hand washer closely. Off note he has been doing cardiac rehabilitation. He never smoked. Denies alcohol abuse/denies illicit drug abuse -- Vitals afebrile, heart rate 103, respiratory rate 20, blood pressure 80/42 to 113/55 after normal saline 1 L bolus, saturating at 99 on room air. HEENT within normal limits. S1-S2 normal no murmurs, bilateral breath sounds were good. Abdomen soft, mild epigastric tenderness, nondistended. Left lower extremity more swollen compared to the right lower extremity. Pulses were intact. Pertinent labs WBC 8.8, hemoglobin 9.3 and hematocrit 28.4, platelet 171. Potassium 5.2 BUN 59 and creatinine 1.1. Glucose 214. Troponin 0.94. LFTs normal. Coags were normal. CAT scan abdomen was done which showed cirrhosis, splenomegaly, no ascites, no new changes compared to prior CAT scan. EKG showed sinus rhythm, rate 85, no ST-T wave changes. 1. Upper GI bleed/melena Patient presented with abdominal cramps and black tarry stools for 1 day. Off note patient is on aspirin, Brilinta since 12/10/2016. Denies any nausea, vomiting, hematemesis, hematochezia. Denies taking any NSAID's. No prior EGD or colonoscopy. He is hypotensive, improved with 1 L normal saline. Hemoglobin 9.3, hematocrit 28. Acute drop of hemoglobin 9.3 from 12.3. * Upper GI bleed/melena most likely from dual antiplatelet agents. * We'll admit to telemetry floor * telemetry monitoring * Type and screen * 2 large IV bore lines * Gentle hydration * IV Protonix 40 mg daily * Serial monitoring of H&H every 6 hours * Avoid NSAIDS * Nothing by mouth pending Gastro recommendations * Check orthostatic vitals * Hemoccult all the stools * monitor vitals closely every shift * Monitor closely for any blood pressure changes Type II [place] Patient was found to have elevated troponin 0.94 at the time of admission. Most likely demand ischemia given his prior history of [place]. * Cardiology consult * Serial troponin and EKG * Echocardiogram CAD status post drug-eluting stent placement Patient was admitted to [facility] in November 2016 for left leg cellulitis. Hospital course was complicated with cardiac arrest, pulseless V. tach, status post CPR and shock, intubation. Troponin was elevated up to 52. Patient was transferred to [facility] for stent placement. He underwent 4 drug-eluting stents on 12/10/2016, ICD placement 12/18/2016. Since then he has been taking aspirin 81 mg and brilinta 90 twice daily. * Please continue aspirin, bleeding, carvedilol, atorvastatin. Hyperkalemia potassium 5.2. Repeat potassium in a.m. and replete accordingly. No EKG changes suggestive of hyperkalemia Obstructive sleep apnea continue on CPAP Hypertension patient takes hydralazine, hydrochlorothiazide, valsartan at home. Please hold antihypertensives for now given his borderline blood pressure and GI bleed Diabetes mellitus Accu-Cheks, insulin sliding scale, Levemir 20 at bedtime. Hyperlipidemia continue statin Insomnia continue melatonin Patient is full code DVT prophylaxis alps given GI bleed Nothing by mouth pending Gastro evaluation for EGD
--- NOTE | 2017-04-14 16:21 | Admission Certification ---
Admission Certification Certification Statement - As attending physician, I certify that at the time of - admission, based on clinical presentation, severity of - symptoms, need for further diagnostic testing and - therapeutic interventions, and risk of adverse outcomes - without in-hospital treatment, in my clinical assessment, - this patient requires an acute hospital stay for a minimum - of two nights or longer. I have also considered psychsocial - factors such as support system, advanced age, financial - issues, cognitive issues, and failed out-patient treatments, - past re-admission history, safety of patient, and lack of - compliance as applicable. Specific rationale supporting this admission is: Acute GI bleed, Type 2 IN, Acute blood loss anemia
--- NOTE | 2017-04-14 16:29 | PN- Att Addend ---
Attending MD Review Statement Attending Statement Attending MD Statement: examined this patient, discuss w/resident/PA/DENTAL HYGIENE INSTRUCTOR, agreed w/resident/PA/DENTAL HYGIENE INSTRUCTOR, discussed with family, reviewed EMR data (avail), discussed w/ nursing Attending Assessment/Plan: Laboratory Tests 04/14/17 1207: Anion Gap 13, Estimated GFR > 60, BUN/Creatinine Ratio 53.6 H, Glucose 249 H, Calcium 9.6, Total Bilirubin 0.5, AST 38, ALT 32, Alkaline Phosphatase 63, Troponin I 0.94 *H, Total Protein 6.5, Albumin 3.5, Globulin 3.0, Albumin/ Globulin Ratio 1.2, PT 13.0 H, INR 1.24 H, CBC w Diff MAN DIFF ORDERED, RBC 3.25 L, MCV 87.3, MCH 28.6, MCHC 32.8 L, RDW 15.5 H, MPV 10.2, Gran % 50.4, Lymphocytes % 26.0, Monocytes % 21.2 H, Eosinophils % 1.9, Basophils % 0.5, Absolute Granulocytes 4.4, Absolute Lymphocytes 2.3, Absolute Monocytes 1.9 H, Absolute Eosinophils 0.2, Absolute Basophils 0, Platelet Estimate ADEQUATE, Hypochromic-Microcytic 2+, Anisocytosis 1+ Vital Signs Date Time Temp Pulse Resp B/P B/P Pulse O2 O2 Flow FiO2 Mean Ox Delivery Rate 04/14 1407 97.7 85 20 113/55 99 Room Air 04/14 1137 96.7 103 80/43 98 Room Air 61 yr old male with pmh of cardiac arrest in november 2016, CAD s/p 4 GILBERT placed in november 2016, DM , Obesity and HTN who presented to the ER with c/c of black stools and weakness. Pt is currently in a cardiac rehab program. Pt had 2 episodes of black tarry stools yesterday evening. Pt denies any chest pain and sob , denies any nausea or vomiting but did complain of abdominal cramping. Pt gives h/o being on asprin and brilinta. Pt drinks a lot of ice tea and sometimes drink mountain dew and is used to eating spicy food. ER labs showed hb of 9.3 and trop of 0.94. A/P- 1. Acute upper GI bleed in pt on dual antiplatelet therapy secondary to recent GILBERT. Will make him npo except for meds. Get GI consult and will start him on protonix drip and will monitor his h/h every 6 hours and will also type and xmatch for PRBC. 2. Positive troponin/ Type 2 IN- with recent h/o IN and Stent placement . will do serial troponins. repeat EKG in am. Will get cardiology consult and will monitor him on telemetry. Will cont his aniplatelet therapy for now. D/w pt and his significant other at bedside the care plan.
--- NOTE | 2017-04-14 17:14 | ULTRASOUND REPORT ---
EXAMINATION: US TRIPLEX LOWER EXTREMITY, LEFT CLINICAL INFORMATION: Pain and swelling COMPARISON: None TECHNIQUE: Color-flow triplex imaging with spectral analysis and compression Doppler were performed on the lower extremity. FINDINGS: Respiratory variation, normal compression and augmented flow are noted throughout the lower extremity. The visualized common femoral vein, superficial femoral vein, profunda femoral vein, popliteal vein and midcalf peroneal and posterior tibial venous segments show no evidence of deep venous thrombosis. There is no Armendariz's cyst. IMPRESSION: There is no sonographic evidence of deep venous thrombosis involving the lower extremity.
--- NOTE | 2017-04-14 18:40 | Cons- Gastroenterology ---
General Information and HPI Consulting Request Date of Consult: 04/14/17 Requested By: Travis Castañeda MD Reason for Consult: Melena Blood loss anemia History of Present Illness: The patient has a history of GERD for which he is been taking a PPI for several years. He recalls an EGD performed when he was living in [place] (he moved here about 2 years ago). In addition he had a colonoscopy approximately 3 years ago and believes he had polyps removed. Otherwise, he does not have chronic dyspepsia, abdominal pain, abnormal bowel movements, or history of GI bleeding. In November the patient had a cardiac arrest while in hospital for cellulitis, and was transferred to [place] where he underwent the insertion of possible coronary artery stents. He has been on aspirin and Brilinta since that time. He does not take NSAIDs. The patient had a black bowel movement yesterday evening, has had 2 today. The most recent was more formed. There's been no bright red blood per rectum, vomiting, or epigastric pain. He has had lower abdominal cramping. He denies chest pain, shortness of breath, syncope. There is no history of liver disease. Family history is negative for GI malignancy, peptic ulcer disease. No history of tobacco use or alcohol abuse. 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 Allergies/Medications Allergies: Coded Allergies: No Known Allergies (02/19/16) Home Med List: Aspirin (Aspirin*) 81 MG TAB.CHEW 1 TAB PO DAILY HEART HEALTH (Reported) Atorvastatin Calcium 80 MG TABLET 1 TAB PO 1800 CHOLESTEROL (Reported) Carvedilol 12.5 MG TABLET 1 TAB PO BID HEART (Reported) Dulaglutide (Trulicity) 1.5 MG/0.5 ML PEN.INJCTR 1 INJ SC We DIABETES ( Reported) Empagliflozin (Jardiance) 25 MG TABLET 1 TAB PO DAILY DIABETES (Reported) Famotidine 20 MG TABLET 1 TAB PO BID GI (Reported) Hydralazine HCl 50 MG TABLET 1 TAB PO TID HEART (Reported) Hydrochlorothiazide 25 MG TABLET 1 TAB PO DAILY WATER RETENTION (Reported) Insulin Glargine,Hum.rec.anlog (Lantus Solostar) 100 UNIT/ML (3 ML) INSULN.PEN 20 UNIT SC QPM DIABETES (Reported) Insulin Lispro (Humalog) 100 UNIT/ML VIAL 5 UNIT SC TID DIABETES (Reported) Magnesium Oxide 400 MG TABLET 1 TAB PO BID SUPPLEMENT (Reported) Melatonin 3 MG TABLET 2 TAB PO QPM SLEEP (Reported) Metformin HCl 1,000 MG TABLET 1 TAB PO BID DIABETES (Reported) Mexiletine HCl 150 MG CAPSULE 1 TAB PO BID UNKNOWN (Reported) Potassium Chloride 20 MEQ TAB.ER.PRT 1 TAB PO DAILY SUPPLEMENT (Reported) Suvorexant (Belsomra) 20 MG TABLET 1 TAB PO QPM SLEEP (Reported) Ticagrelor (Brilinta) 90 MG TABLET 1 TAB PO BID BLOOD THINNER (Reported) Valsartan 320 MG TABLET 1 TAB PO DAILY HEART (Reported) Current Medications: Current Medications Sig/Jasvir Start time Last Medication Dose Route Stop Time Status Admin Acetaminophen 650 MG Q6P PRN 04/14 1630 AC PO Aspirin 81 MG DAILY 04/15 1000 AC PO Atorvastatin Calcium 80 MG 1800 04/14 1800 AC PO Carvedilol 12.5 MG BID 04/14 2200 AC PO Insulin Aspart 0 TIDAC 04/14 1715 AC SC Insulin Detemir 20 UNITS QPM 04/14 2200 AC SC Magnesium Oxide 400 MG BID 04/14 2200 AC PO Melatonin 6 MG QPM 04/14 2200 AC PO Mexiletine HCl 150 MG BID 04/14 2200 AC PO Pantoprazole Sodium 0 .STK-MED ONE 04/14 1711 DC IV Pantoprazole Sodium 40 MG DAILY 04/14 1630 AC 04/14 IV 1714 Sodium Chloride 1,000 ML .[id number] 04/14 1630 AC 04/14 IV 04/15 1909 1714 Sodium Chloride 1,000 ML BOLUS ONE 04/14 1215 DC 04/14 IV 04/14 1314 1220 Ticagrelor 90 MG BID 04/14 2200 AC PO Past History Travel History Traveled to [place] past 21 day No Medical History Neurological: NONE EENT: NONE Cardiovascular: hypertension, hyperlipidemia, myocardial infarction Respiratory: obstructive sleep apnea Gastrointestinal: GERD Hepatic: NONE Renal: NONE Musculoskeletal: NONE Psychiatric: NONE Endocrine: diabetes Blood Disorders: NONE 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 EENTM: Denies: icterus, epistaxis. Cardiovascular: Denies: chest pain, syncope. Respiratory: Denies: cough, short of breath. GI: Reports: see HPI. Genitourinary: Denies: dysuria, hematuria. Musculoskeletal: Denies: muscle stiffness, neck pain. Skin: Denies: jaundice, lesions. Neurological/Psychological: Denies: cognitive dysfunction, headache. Hematologic/Endocrine: Reports: bleeding. Denies: bruising, polyuria. Exam & Diagnostic Data Vital Signs and I&O Vital Signs Date Time Temp Pulse Resp B/P B/P Pulse O2 O2 Flow FiO2 Mean Ox Delivery Rate 04/14 1643 97.7 84 18 104/51 98 Room Air 04/14 1407 97.7 85 20 113/55 99 Room Air 04/14 1137 96.7 103 80/43 98 Room Air Intake & Output 04/14 1600 04/14 0400 04/13 1600 04/13 0400 04/12 1600 04/12 0400 Intake Total 1000 Output Total Balance 1000 Intake, IV 1000 Patient 245 lb Weight Weight Reported by Patient Measurement Method Physical Exam: Well-developed, well-nourished no apparent distress. Alert and oriented with normal cognition. Skin normal without rash, lesion, jaundice, petechiae, purpura, stigmata of chronic liver disease. No adenopathy. Sclera anicteric. No oropharyngeal lesion. Neck supple without thyromegaly or mass. Heart regular rhythm with 2/6 systolic murmur. Lungs clear bilaterally. Abdomen is soft and nondistended with normal bowel sounds; no tenderness, mass or organomegaly. Extremities without clubbing, or cyanosis. Trace pretibial edema. Distal pulses intact bilaterally. Results Pertinent Lab Results: Laboratory Tests 04/14 1207 Chemistry Sodium (137 - 145 mmol/L) 138 Potassium (3.5 - 5.1 mmol/L) 5.2 H Chloride (98 - 107 mmol/L) 102 Carbon Dioxide (22 - 30 mmol/L) 23 Anion Gap (5 - 16) 13 BUN (9 - 20 mg/dL) 59 H Creatinine (0.7 - 1.2 mg/dL) 1.1 Estimated GFR (>60 ml/min) > 60 BUN/Creatinine Ratio (7 - 25 %) 53.6 H Glucose (65 - 99 mg/dL) 249 H Calcium (8.4 - 10.2 mg/dL) 9.6 Total Bilirubin (0.2 - 1.3 mg/dL) 0.5 AST (17 - 59 U/L) 38 ALT (21 - 72 U/L) 32 Alkaline Phosphatase (< 127 U/L) 63 Troponin I (<0.11 ng/ml) 0.94 *H Total Protein (6.3 - 8.2 g/dL) 6.5 Albumin (3.5 - 5.0 g/dL) 3.5 Globulin (1.9 - 4.2 gm/dL) 3.0 Albumin/Globulin Ratio (1.1 - 2.2 %) 1.2 Coagulation PT (9.4 - 12.5 SEC) 13.0 H INR (0.90 - 1.17) 1.24 H Hematology CBC w Diff MAN DIFF ORDERED WBC (4.8 - 10.8 /CUMM) 8.8 RBC (4.70 - 6.10 /CUMM) 3.25 L Hgb (14.0 - 18.0 G/DL) 9.3 L Hct (42 - 52 %) 28.4 L MCV (80.0 - 94.0 FL) 87.3 MCH (27.0 - 31.0 PG) 28.6 MCHC (33.0 - 37.0 G/DL) 32.8 L RDW (11.5 - 14.5 %) 15.5 H Plt Count (130 - 400 /CUMM) 171 MPV (7.4 - 10.4 FL) 10.2 Gran % (42.2 - 75.2 %) 50.4 Lymphocytes % (20.5 - 51.1 %) 26.0 Monocytes % (1.7 - 9.3 %) 21.2 H Eosinophils % (0 - 5 %) 1.9 Basophils % (0.0 - 2.0 %) 0.5 Absolute Granulocytes (1.4 - 6.5 /CUMM) 4.4 Absolute Lymphocytes (1.2 - 3.4 /CUMM) 2.3 Absolute Monocytes (0.10 - 0.60 /CUMM) 1.9 H Absolute Eosinophils (0.0 - 0.7 /CUMM) 0.2 Absolute Basophils (0.0 - 0.2 /CUMM) 0 Platelet Estimate (ADEQUATE) ADEQUATE Hypochromic-Microcytic 2+ Anisocytosis 1+ Assessment/Plan Assessment/Recommendations: Melena/blood loss anemia. The patient was initially hypotensive but this corrected with IV fluid resuscitation. BUN is elevated suggesting an upper GI bleed. Vital signs have remained stable since initial evaluation. Recommendations * Clear liquid diet; nothing by mouth after midnight * 2 large-bore IVs * IV PPI twice a day * Type and screen * Check CBC every 8 hours; maintain hemoglobin greater than 8 with transfusion as necessary * Continue aspirin and antiplatelet therapy * Cardiology consultation * EGD tomorrow * Please call GI immediately with recurrent hypotension, tachycardia, significant melena, red/maroon blood per rectum, or hematemesis. Consult Acknowledgment - Thank you for your consult request.
[2017-04-14 19:10] LABS: ABSOLUTE BASOPHIL COUNT 0 /CUMM (0.0-0.2); ABSOLUTE EOSINOPHIL COUNT 0.1 /CUMM (0.0-0.7); ABSOLUTE GRANULOCYTE CT 6.7 /CUMM (1.4-6.5); ABSOLUTE LYMPH COUNT 2.4 /CUMM (1.2-3.4); ABSOLUTE MONOCYTE COUNT 1.6 /CUMM (0.10-0.60); BASOPHIL % 0.3 % (0.0-2.0); EOSINOPHIL % 0.7 % (0-5); GRANULOCYTE % 62.3 % (42.2-75.2); HEMATOCRIT 26.7 % (42-52); MEAN CORPUSCULAR HGB 27.9 PG (27.0-31.0); MEAN CORPUSCULAR HGB CONC 31.8 G/DL (33.0-37.0); MEAN CORPUSCULAR VOLUME 87.6 FL (80.0-94.0); PLATELET COUNT 168 /CUMM (130-400); RBC DISTRIBUTION WIDTH 15.4 % (11.5-14.5); RED BLOOD CELL CT 3.05 /CUMM (4.70-6.10); WHITE BLOOD CELL COUNT 10.7 /CUMM (4.8-10.8)
[2017-04-14 19:39] VITALS: BP 110/60
--- NOTE | 2017-04-14 21:46 | Cons- Cardiology ---
General Information and HPI Consulting Request Date of Consult: 04/14/17 Requested By: Travis Castañeda MD History of Present Illness: This patient is a 61 year old male with an extensive cardiac history including recent PR with cardiac arrest with subsequent PCI and ICD placement. The patient came to the ER for evaluation of abdominal discomfort with dark, tarry appearing stools. He denies any significnt chest discomfort, shortness of breath, lightheadedness or palpitations. In the ER the patient was found to be anemic with a borderline elevated troponin. Allergies/Medications Allergies: Coded Allergies: No Known Allergies (02/19/16) Home Med List: Aspirin (Aspirin*) 81 MG TAB.CHEW 1 TAB PO DAILY HEART HEALTH (Reported) Atorvastatin Calcium 80 MG TABLET 1 TAB PO 1800 CHOLESTEROL (Reported) Carvedilol 12.5 MG TABLET 1 TAB PO BID HEART (Reported) Dulaglutide (Trulicity) 1.5 MG/0.5 ML PEN.INJCTR 1 INJ SC We DIABETES ( Reported) Empagliflozin (Jardiance) 25 MG TABLET 1 TAB PO DAILY DIABETES (Reported) Famotidine 20 MG TABLET 1 TAB PO BID GI (Reported) Hydralazine HCl 50 MG TABLET 1 TAB PO TID HEART (Reported) Hydrochlorothiazide 25 MG TABLET 1 TAB PO DAILY WATER RETENTION (Reported) Insulin Glargine,Hum.rec.anlog (Lantus Solostar) 100 UNIT/ML (3 ML) INSULN.PEN 20 UNIT SC QPM DIABETES (Reported) Insulin Lispro (Humalog) 100 UNIT/ML VIAL 5 UNIT SC TID DIABETES (Reported) Magnesium Oxide 400 MG TABLET 1 TAB PO BID SUPPLEMENT (Reported) Melatonin 3 MG TABLET 2 TAB PO QPM SLEEP (Reported) Metformin HCl 1,000 MG TABLET 1 TAB PO BID DIABETES (Reported) Mexiletine HCl 150 MG CAPSULE 1 TAB PO BID UNKNOWN (Reported) Potassium Chloride 20 MEQ TAB.ER.PRT 1 TAB PO DAILY SUPPLEMENT (Reported) Suvorexant (Belsomra) 20 MG TABLET 1 TAB PO QPM SLEEP (Reported) Ticagrelor (Brilinta) 90 MG TABLET 1 TAB PO BID BLOOD THINNER (Reported) Valsartan 320 MG TABLET 1 TAB PO DAILY HEART (Reported) Review of Systems Review of Systems: A review of systems is unremarkable. 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 Home Smoking Status: Never Smoked ETOH Use: denies use Illicit Drug Use: denies illicit drug use Exam & Diagnostic Data Vital Signs and I&O Vital Signs Date Time Temp Pulse Resp B/P B/P Pulse O2 O2 Flow FiO2 Mean Ox Delivery Rate 04/14 2101 83 112/62 04/14 1939 97.8 87 20 110/60 97 Room Air 04/14 1857 116/53 04/14 1847 98.2 66 18 89/51 99 Room Air 04/14 1643 97.7 84 18 104/51 98 Room Air 04/14 1407 97.7 85 20 113/55 99 Room Air 04/14 1137 96.7 103 80/43 98 Room Air Intake & Output 04/14 1600 04/14 0800 04/14 0000 04/13 1600 04/13 0800 04/13 0000 Intake Total 1000 Output Total Balance 1000 Intake, IV 1000 Patient 245 lb Weight Weight Reported by Patient Measurement Method Physical Exam: General: WD/WN male in NAD; alert and oriented x 3 HEENT: NC/AT, PERRL, EOMI Neck: no JVD, no carotid bruit Heart: RRR Lungs: clear bilaterally Abdomen: soft, NT, +ve bowel sounds Extremities: no edema Assessment/Plan Assessment/Plan * This patient has abdominal discomfort and evidence of GI bleeding on anticoagulation. The patient is greater than three months out from his PCI and both aspirin and Brilinta will be held. Obtain an GI consult. Follow his H/H. Begin a PPI. * This patient likely had extensive coronary artery disease and now demonstrates evidence of a type 2 PR from supply demand mismatch in the setting of anemia. Continue Carvedilol but hold hydralazine, HCTZ and Valsartan. Follow cardiac enzymes until peak. * Obtain an echocardigram. Consult Acknowledgment - Thank you for your consult request.
[2017-04-14 22:11] VITALS: BP 124/62
[2017-04-15 01:00] LABS: ABSOLUTE EOSINOPHIL COUNT 0.1 /CUMM (0.0-0.7); PLATELET COUNT 138 /CUMM (130-400)
[2017-04-15 01:11] LABS: ABSOLUTE BASOPHIL COUNT 0 /CUMM (0.0-0.2); ABSOLUTE LYMPH COUNT 2.5 /CUMM (1.2-3.4); ABSOLUTE MONOCYTE COUNT 1.3 /CUMM (0.10-0.60); BASOPHIL % 0.5 % (0.0-2.0); EOSINOPHIL % 0.9 % (0-5); GRANULOCYTE % 50.8 % (42.2-75.2); HEMATOCRIT 22.2 % (42-52); MEAN CORPUSCULAR HGB 28.2 PG (27.0-31.0); MEAN CORPUSCULAR HGB CONC 32.9 G/DL (33.0-37.0); MEAN CORPUSCULAR VOLUME 85.9 FL (80.0-94.0); RBC DISTRIBUTION WIDTH 15.2 % (11.5-14.5); RED BLOOD CELL CT 2.59 /CUMM (4.70-6.10); WHITE BLOOD CELL COUNT 7.9 /CUMM (4.8-10.8)
[2017-04-15 02:21] LABS: ABSOLUTE BASOPHIL COUNT 0 /CUMM (0.0-0.2); ABSOLUTE EOSINOPHIL COUNT 0.1 /CUMM (0.0-0.7); ABSOLUTE GRANULOCYTE CT 4.1 /CUMM (1.4-6.5); ABSOLUTE LYMPH COUNT 1.9 /CUMM (1.2-3.4); ABSOLUTE MONOCYTE COUNT 1.3 /CUMM (0.10-0.60); BASOPHIL % 0.6 % (0.0-2.0); GRANULOCYTE % 55.5 % (42.2-75.2); HEMATOCRIT 22.8 % (42-52); MEAN CORPUSCULAR HGB 28.2 PG (27.0-31.0); MEAN CORPUSCULAR HGB CONC 32.8 G/DL (33.0-37.0); MEAN CORPUSCULAR VOLUME 85.8 FL (80.0-94.0); MEAN PLATELET VOLUME 10.1 FL (7.4-10.4); PLATELET COUNT 137 /CUMM (130-400); RBC DISTRIBUTION WIDTH 15.2 % (11.5-14.5); RED BLOOD CELL CT 2.66 /CUMM (4.70-6.10); WHITE BLOOD CELL COUNT 7.4 /CUMM (4.8-10.8)
[2017-04-15 02:50] VITALS: BP 110/54
[2017-04-15 06:05] VITALS: BP 104/4; BP 104/64
--- NOTE | 2017-04-15 08:47 | PN- Housestaff ---
Hitesh GARCIA,Yenni 04/15/17 0847: Subjective Follow-up For: GI bleed Subjective: Patient was seen and examined today. Patient notes that his dizziness and weakness has improved after the blood transfusion. Patient had approximately 4 bowel movements since admission which he describes as black and tarry. Denies any bright red blood. Denies nausea/vomiting. Denies chest pain, shortness of breath, fever/chills, dysuria/hematuria. No acute events overnight. Review of Systems Constitutional: Reports: see HPI, weakness. Cardiovascular: Reports: see HPI. Respiratory: Reports: no symptoms. Gastrointestinal: Reports: see HPI. Genitourinary: Reports: no symptoms. Musculoskeletal: Reports: no symptoms. Neurological/Psychological: Reports: anxiety. Objective Last 24 Hrs of Vital Signs/I&O Vital Signs Date Time Temp Pulse Resp B/P B/P Pulse O2 O2 Flow FiO2 Mean Ox Delivery Rate 04/15 0905 110/60 04/15 0605 97.4 78 18 104/64 97 Room Air 04/15 0250 97.7 80 18 110/54 97 Room Air 04/14 2211 98.0 88 20 124/62 99 Room Air 04/14 2101 83 112/62 04/14 1939 97.8 87 20 110/60 97 Room Air 04/14 1857 116/53 04/14 1847 98.2 66 18 89/51 99 Room Air 04/14 1643 97.7 84 18 104/51 98 Room Air 04/14 1407 97.7 85 20 113/55 99 Room Air Intake & Output 04/15 1600 04/15 0800 04/15 0000 Intake Total 825 606 Output Total Balance 825 606 Intake, IV 725 150 Intake, Oral 100 456 Number 1 Bowel Movements Patient 245 lb Weight Weight Reported by Patient Measurement Method Physical Exam General Appearance: Alert, Oriented X3, Cooperative, No Acute Distress HEENT: Atraumatic, Mucous Membr. moist/pink Cardiovascular: Regular Rate, Normal S1, Normal S2 Lungs: Clear to Auscultation, Normal Air Movement Abdomen: Normal Bowel Sounds, Soft, No Tenderness Neurological: Normal Speech, Strength at 5/5 X4 Ext, Normal Tone, Sensation Intact, Cranial Nerves 3-12 NL Extremities: No Clubbing, No Cyanosis, Normal Pulses, No Tenderness/Swelling, trace pedal edema bilaterally greater on left Vascular: Normal Pulses, Pulses Symmetrical Current Medications: Current Medications Sig/Jasvir Start time Last Medication Dose Route Stop Time Status Admin Acetaminophen 650 MG Q6P PRN 04/14 1630 AC 04/14 PO 2113 Aspirin 81 MG DAILY 04/15 1000 CAN PO Atorvastatin Calcium 40 MG 1800 04/15 1800 AC PO Atorvastatin Calcium 80 MG 1800 04/14 1800 DC 04/14 PO 2056 Bisacodyl 5 MG 1900 04/15 1900 DC PO 04/15 1901 Bisacodyl 5 MG 1900 04/15 1900 CAN PO 04/15 1901 Bisacodyl 10 MG 1900 04/15 1900 AC PO 04/15 1901 Carvedilol 12.5 MG BID 04/14 2200 AC 04/15 PO 0905 Chlorhexidine 1 GM .STK-MED ONE 04/15 1344 DC Gluconate TOP 04/15 1345 Dextrose/Sodium 1,000 ML ONCE ONE 04/16 0000 AC Chloride IV 04/16 1959 Insulin Aspart 0 TIDAC 04/14 1715 AC SC 04/15 2355 Insulin Detemir 20 UNITS QPM 04/14 2200 AC 04/14 SC 2100 Insulin Human Regular 0 Q6 04/15 2359 AC SC Magnesium Oxide 400 MG BID 04/14 2200 AC 04/15 PO 1122 Melatonin 6 MG QPM 04/14 2200 AC 04/14 PO 2100 Mexiletine HCl 150 MG BID 04/14 2200 AC 04/15 PO 0904 Pantoprazole Sodium 40 MG BID 04/15 1000 AC 04/15 IV 0904 Pantoprazole Sodium 40 MG DAILY 04/14 1630 DC 04/14 IV 1714 Patient Medication 1 ED ONE ONE 04/15 1645 PA Teaching ED 04/15 1646 Patient Medication 1 ED ONE ONE 04/15 1630 PA Teaching ED 04/15 1631 Polyethylene Glycol 1 GAL ONCE ONE 04/15 1530 DC PO 04/15 1531 Sodium Chloride 1,000 ML .[id number] 04/14 1630 AC 04/15 IV 04/15 1909 0030 Ticagrelor 90 MG BID 04/14 2200 CAN PO Last 24 Hrs of Lab/[place]ady Results Last 24 Hrs of Labs/Mics: Laboratory Tests 04/15/17 0750: Anion Gap 11, Estimated GFR > 60, BUN/Creatinine Ratio 58.0 H, CBC w Diff NO MAN DIFF REQ, RBC 2.92 L, MCV 87.5, MCH 28.8, MCHC 33.0, RDW 15.6 H, MPV 9.9, Gran % 50.7, Lymphocytes % 29.6, Monocytes % 17.2 H, Eosinophils % 1.8, Basophils % 0.7, Absolute Granulocytes 3.5, Absolute Lymphocytes 2.1, Absolute Monocytes 1.2 H, Absolute Eosinophils 0.1, Absolute Basophils 0 04/15/17 0148: CBC w Diff NO MAN DIFF REQ, RBC 2.66 L, MCV 85.8, MCH 28.2, MCHC 32.8 L, RDW 15.2 H, MPV 10.1, Gran % 55.5, Lymphocytes % 25.5, Monocytes % 17.4 H, Eosinophils % 1.0, Basophils % 0.6, Absolute Granulocytes 4.1, Absolute Lymphocytes 1.9, Absolute Monocytes 1.3 H, Absolute Eosinophils 0.1, Absolute Basophils 0 04/15/17 0015: Troponin I 0.61 *H, CBC w Diff NO MAN DIFF REQ, RBC 2.59 L, MCV 85.9, MCH 28.2, MCHC 32.9 L, RDW 15.2 H, MPV 10.0, Gran % 50.8, Lymphocytes % 31.9, Monocytes % 15.9 H, Eosinophils % 0.9, Basophils % 0.5, Absolute Granulocytes 4.0, Absolute Lymphocytes 2.5, Absolute Monocytes 1.3 H, Absolute Eosinophils 0.1, Absolute Basophils 0 04/14/17 1843: Troponin I 0.77 *H, CBC w Diff NO MAN DIFF REQ, RBC 3.05 L, MCV 87.6, MCH 27.9, MCHC 31.8 L, RDW 15.4 H, MPV 10.0, Gran % 62.3, Lymphocytes % 22.2, Monocytes % 14.5 H, Eosinophils % 0.7, Basophils % 0.3, Absolute Granulocytes 6.7 H, Absolute Lymphocytes 2.4, Absolute Monocytes 1.6 H, Absolute Eosinophils 0.1, Absolute Basophils 0 Assessment/Plan Assessment: Patient is a 61-year-old male with past medical history of hyperlipidemia, hypertension, diabetes, obstructive sleep apnea on CPAP, CAD status post recent stent 4, placed on December 10, 2016 at [place] and s/p AICD placement on December 18, 2016 presenting this admission with chief complaint of black tarry stools. Patient's H&H overnight dropped from 8.5 to 7.3. Patient received 1 PRBC. Patient's H&H kevin this morning to 8.4. Patient has been hemodynamically stable. Patient had an EGD done which showed a small area of prepyloric ulcer, mild portal hypertensive gastropathy, small grade 1 esophageal varices and no active bleeding. Per GI recommendations patient was placed on a full liquid diet and is planned to have colonoscopy tomorrow. Patient will have bowel prep with Dulcolax tablets and GoLYTELY (half a gallon tonight and again tomorrow in the morning) starting after dinner. Patient is to be nothing by mouth after midnight. Patient will be admitted to telemetry for management of the followin. Anemia likely 2/2 to GI Bleed - Admit to telemetry - IV D5 normal saline to be started after midnight as patient is nothing by mouth for colonoscopy - Monitor CBC at 6PM today and 6AM tomorrow - GI prophylaxis with IV protonix BID - GI consulted. Appreciate recommendations - Guiac all stool, monitor vitals including orthostats 2. Elevated troponin. Likely Demand Ischemia/Type II NC Troponins trended down. No acute changes on EKG. - admit and monitor on tele - cardiology consult - ECHO pending 3. CAD s/p drug-eluting stents (x4) and AICD - Please continue carvedilol, atrovastatin - hold aspirin and brilinta per cardiology 4. Electrolyte abnormalities: Hyperkalemia has resolved - monitor K+ - monitor for EKG changes 5. Chronic conditions: HUGH, HTN, DM, HLD - continue CPAP ( to bring patient's machine from home) - hold antihypertensives in setting of GI bleed - accucheck, insulin SS and levemir 20 units qhs - continue atorvastatin Code: full code DVT prophylaxis: mechanical only in setting of GI bleed NPO after midnight for colonoscopy Problem List: 1. GI bleed 2. Anemia 3. 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, agreed w/resident/PA/OTHER SALES SUPPORT WORKER, reviewed EMR data (avail), discussed with nursing Attending Assessment/Plan: Laboratory Tests 04/15/17 0750: Anion Gap 11, Estimated GFR > 60, BUN/Creatinine Ratio 58.0 H, CBC w Diff NO MAN DIFF REQ, RBC 2.92 L, MCV 87.5, MCH 28.8, MCHC 33.0, RDW 15.6 H, MPV 9.9, Gran % 50.7, Lymphocytes % 29.6, Monocytes % 17.2 H, Eosinophils % 1.8, Basophils % 0.7, Absolute Granulocytes 3.5, Absolute Lymphocytes 2.1, Absolute Monocytes 1.2 H, Absolute Eosinophils 0.1, Absolute Basophils 0 04/15/17 0148: CBC w Diff NO MAN DIFF REQ, RBC 2.66 L, MCV 85.8, MCH 28.2, MCHC 32.8 L, RDW 15.2 H, MPV 10.1, Gran % 55.5, Lymphocytes % 25.5, Monocytes % 17.4 H, Eosinophils % 1.0, Basophils % 0.6, Absolute Granulocytes 4.1, Absolute Lymphocytes 1.9, Absolute Monocytes 1.3 H, Absolute Eosinophils 0.1, Absolute Basophils 0 04/15/17 0015: Troponin I 0.61 *H, CBC w Diff NO MAN DIFF REQ, RBC 2.59 L, MCV 85.9, MCH 28.2, MCHC 32.9 L, RDW 15.2 H, MPV 10.0, Gran % 50.8, Lymphocytes % 31.9, Monocytes % 15.9 H, Eosinophils % 0.9, Basophils % 0.5, Absolute Granulocytes 4.0, Absolute Lymphocytes 2.5, Absolute Monocytes 1.3 H, Absolute Eosinophils 0.1, Absolute Basophils 0 04/14/17 1843: Troponin I 0.77 *H, CBC w Diff NO MAN DIFF REQ, RBC 3.05 L, MCV 87.6, MCH 27.9, MCHC 31.8 L, RDW 15.4 H, MPV 10.0, Gran % 62.3, Lymphocytes % 22.2, Monocytes % 14.5 H, Eosinophils % 0.7, Basophils % 0.3, Absolute Granulocytes 6.7 H, Absolute Lymphocytes 2.4, Absolute Monocytes 1.6 H, Absolute Eosinophils 0.1, Absolute Basophils 0 04/14/17 1207: Anion Gap 13, Estimated GFR > 60, BUN/Creatinine Ratio 53.6 H, Glucose 249 H, Calcium 9.6, Total Bilirubin 0.5, AST 38, ALT 32, Alkaline Phosphatase 63, Troponin I 0.94 *H, Total Protein 6.5, Albumin 3.5, Globulin 3.0, Albumin/ Globulin Ratio 1.2, PT 13.0 H, INR 1.24 H, CBC w Diff MAN DIFF ORDERED, RBC 3.25 L, MCV 87.3, MCH 28.6, MCHC 32.8 L, RDW 15.5 H, MPV 10.2, Gran % 50.4, Lymphocytes % 26.0, Monocytes % 21.2 H, Eosinophils % 1.9, Basophils % 0.5, Absolute Granulocytes 4.4, Absolute Lymphocytes 2.3, Absolute Monocytes 1.9 H, Absolute Eosinophils 0.2, Absolute Basophils 0, Platelet Estimate ADEQUATE, Hypochromic-Microcytic 2+, Anisocytosis 1+ Vital Signs Date Time Temp Pulse Resp B/P B/P Pulse O2 O2 Flow FiO2 Mean Ox Delivery Rate 04/15 0905 110/60 04/15 0605 97.4 78 18 104/64 97 Room Air 04/15 0250 97.7 80 18 110/54 97 Room Air 04/14 2211 98.0 88 20 124/62 99 Room Air 04/14 2101 83 112/62 04/14 1939 97.8 87 20 110/60 97 Room Air 04/14 1857 116/53 04/14 1847 98.2 66 18 89/51 99 Room Air 04/14 1643 97.7 84 18 104/51 98 Room Air 04/14 1407 97.7 85 20 113/55 99 Room Air 04/14 1137 96.7 103 80/43 98 Room Air 61 yr old male with pmh of cardiac arrest in november 2016, CAD s/p 4 GILBERT placed in november 2016, DM , Obesity and HTN who presented to the ER with c/c of black stools and weakness. Pt is currently in a cardiac rehab program. Pt had 2 episodes of black tarry stools an evening prior to admission. Pt denies any chest pain and sob , denies any nausea or vomiting but did complain of abdominal cramping. Pt gives h/o being on asprin and brilinta. Pt drinks a lot of ice tea and sometimes drink mountain dew and is used to eating spicy food. ER labs showed hb of 9.3 and trop of 0.94. 1. Acute upper GI bleed in pt on dual antiplatelet therapy secondary to recent GILBERT. Keep him npo except for meds for EGD today. Cont on IV protonix . 2. Positive troponin/ Type 2 NC- with recent h/o NC and Stent placement . appreciated cardiology consult . Hold antiplatelet per cardiology. 3. Acute blood loss anemia- hb dropped. transfused 1 U PRBC today and hb better at 8.4
[2017-04-15 09:25] LABS: ABSOLUTE BASOPHIL COUNT 0 /CUMM (0.0-0.2); ABSOLUTE EOSINOPHIL COUNT 0.1 /CUMM (0.0-0.7); ABSOLUTE GRANULOCYTE CT 3.5 /CUMM (1.4-6.5); ABSOLUTE LYMPH COUNT 2.1 /CUMM (1.2-3.4); ABSOLUTE MONOCYTE COUNT 1.2 /CUMM (0.10-0.60); BASOPHIL % 0.7 % (0.0-2.0); EOSINOPHIL % 1.8 % (0-5); GRANULOCYTE % 50.7 % (42.2-75.2); HEMATOCRIT 25.6 % (42-52); MEAN CORPUSCULAR HGB 28.8 PG (27.0-31.0); MEAN CORPUSCULAR VOLUME 87.5 FL (80.0-94.0); MEAN PLATELET VOLUME 9.9 FL (7.4-10.4); PLATELET COUNT 136 /CUMM (130-400); RBC DISTRIBUTION WIDTH 15.6 % (11.5-14.5); RED BLOOD CELL CT 2.92 /CUMM (4.70-6.10); WHITE BLOOD CELL COUNT 6.9 /CUMM (4.8-10.8)
--- NOTE | 2017-04-15 13:31 | Proc Note Endoscopy ---
Endoscopy Procedure Medical History: unchanged (see [facility] consult) Mental Status: alert/oriented Heart/Lung Eval Prior to Sedation: within normal limits Candidate for Sedation? Yes Procedure Date: 04/15/17 Procedure Type: EGD w/biopsy Eyeglass Fitter: Rikki James MD. ASA Classification: III Indications: Melena, anemia. Instrument: diagnostic gastroscope Meds Received: MAC Patient's Tolerance: good Complications: none Extent Reached: second part of duodenum Procedure: After getting written informed consent the patient was placed in the left lateral decubitus position with pulse oximetry, cardiac monitoring, and supplemental oxygen given. A bite block was inserted and IV sedation was given until the desired effect was achieved. A high definition upper Olympus endoscope was then inserted into the mouth and advanced to the second portion of the duodenum with little difficulty. Retroflexed views and photodocumentation was obtained. Findings: Esophagus: The upper esophageal mucosa was grossly normal in appearance. Starting in the mid esophagus were several columns of small varices which nearly completely flattened with air insufflation. There were no red well markings or stigmata of recent hemorrhage. The Z line was located approximately 40 cm from the incisors and was normal in appearance. Stomach: Within the antrum there were moderate erythematous changes and there was one very small prepyloric ulcer less than 1 cm in size. Retroflexed views of the fundus showed a very subtle snake skin appearance suggestive of mild portal hypertensive gastropathy. There were no gastric varices or a hiatal hernia appreciated on retroflexed views. Distention and peristalsis of the stomach appeared normal. Random biopsies were obtained from the antrum with cold biopsy forceps and were sent to pathology for further evaluation. Duodenum: The duodenal bulb was mildly erythematous, but there were no ulcers or erosions appreciated. There was bile appreciated throughout the second portion of the duodenum. Impression: 1. Small clean-based prepyloric ulcer status post antral biopsies. 2. Mild portal hypertensive gastropathy. 3. Small grade 1 esophageal varices without stigmata of recent hemorrhage. 4. No active bleeding appreciated to the second portion of the duodenum. Recommendations: 1. Would transfer the patient back to the medical floor and advanced to a full liquid diet. 2. Follow CBCs every 12 hours and transfuse as needed to keep hemoglobin greater than 7 or as per cardiology recommendations. 3. Once he is taking oral intake would change him to a by mouth PPI twice a day. 4. If no objections from cardiology consideration should be given to change his beta clint to a nonselective beta clint such as nadolol or propranolol for variceal bleeding prophylaxis. 5. GI should be notified for signs of overt GI bleeding. 6. Will tentatively plan to pursue a diagnostic colonoscopy in the a.m. and would ask that he be prepped with 2 dulcolax tablets followed by a gallon of Colyte after a full liquid dinner. CC: Supriya Pierre DO, MD,Andres Kwong
[2017-04-15 14:46] VITALS: BP 120/72
--- NOTE | 2017-04-15 15:43 | PN- Student ---
Subjective Subjective: *Full H&P* ID: Jose Rooney is a 61 y.o. white male, born on [birth year], with PMHx of KS on s/p 4 GILBERT placement on 12/10/16 & ICD placement on 12/18/16, who prestented to the ED on 04/14/17 for weakness, abdominal pain, & black tarry stools for 1 day. CC: Abdominal cramps that started friday night & black tarry stools twice since this morning. HPI: Mr. Rooney states that on Friday evening, he began experiencing abdominal cramps which worsened throughout the night, making it difficult for him to sleep. His state that Mr. Rooney was moaning & groaning all through the night & could not stay still, to the point where she had to go sleep in the guest room. The patient reports that the pain was constant & crampy in nature, & 7-8/10 in severity. Mr. Rooney states that he woke up early this morning with the cramps still present and felt nauseated but did not vomit. He went to the bathroom at this time and states he was alarmed to see that his stool was black & tarry in appearance, he also reports that it was of loose consistency and sank to the bottom of the poilet bowl. Mr. Rooney states that quite a bit of strain was required inorder for him to have the bowel movement but that he did not experience any associated pain, only discomfort. Prior to this, Mr. Rooney states that he had not had any bowel movement for the past two days. The patient reports having a second episode of black tarry stools later in the day, worsening abdonimal cramps, and a feeling of increased light headedness & fatigue prompting him to come into the ED. He is also a type 2 diabetic and reports that over the past few days, his blood sugars have been > 300, which is unusualy as his diabetes was previously well controled. Patient states he has never had black tarry stools before and that this is his first time experiencing abdominal cramps and bowel movements of this nature. Mr. Rooney also discusses his anxiety in relation to when he had last come to [place] on December 09 2016, and was admitted for left lower extremity cellulitis, but he had Vtach & went into cardiac arrest overnight & was found to have troponins >50, without experiencing any prior cardiac symptoms. He was transfered to [place] & had placement of 4 drug eleuding stents on December 10, & then an ICD on December 18. Prior to his current presentation, he had been feeling very well over the past few weeks with ongoing participation in cardiac rehab. Patient reports losing 37 pounds during the first few weeks after his KS, but mostly attributes this to the extended hospital stay during which he was barely eating. He reports gaining three pounds since. Mr. Rooney also states that although he tries to maintain a fairly heart healthy diet & avoids processed sugar, he still eats spicy food & consumes a liter or so of iced tea every day as well as the occasional diet soda. He also endorses having GERD, which is currently managed with a PPI. He denies any hematemesis, and says that he hasn't noticed any bright red blood from his rectum, on used toilet paper, or in the toilet bowl. He also denies the use of NSAIDs or Pepto bismol & reports taking his current medications after a meal and never on an empty stomach. Mr. Rooney also denies any chest pain, palpitations, or shortness of breath at the time of admission; but he does report having HUGH due to which he is depent on CPAP & requires at least one pillow to sleep at night. He also states that last week, his PCP decreased his dose of Atrovastatin from 80mg to 40mg, for management of hypertriglyceridemia, because it was found that his LDL levels had become "dangerously low". Upon arrival to the ED, the patient was hypotensive and given IV fluids, he was also found to have elevated troponin at 0.94 & was admitted to telemetry. PMHx: - CAD - NSTEMI on 12/09/16 s/p 4 GILBERT placement on 12/10/16 - Vtach s/p AICD on 12/18/16 - HUGH on CPAP - HTN - HLD - DM 2 - Gallstones s/p Cholesystectomy 3 years ago - GERD - Prostate Cancer s/p Prostatectomy 4.5 years ago - Recurrent left leg cellulitis - Arthritis in right hand - Childhood heart murmur PSHx: - 4 GILBERT placement on 12/10/16 - AICD on 12/18/16 - Cholecystectomy 3 years ago - Prostatectomy 4.5 years ago - Colonoscopy w/ non-malignant polyp removal 3 years ago - Right Flor Abcess drainage - Right big toe wound debriment Home Medications: - Aspirin 81mg 1xday - Atorvastatin Calcium 40mg 1xday - Carvedilol 12.5mg 2xday - Dulaglutide 1.5mg/0.5mL SC injection 1xday - Empagliflozin 25mg 1xday - Famotidine 20mg 2xday - Hydralazine 50mg 3xday - Hydrochlorothiazide 25mg 1xday - Insulin Glargine 100units/mL 20 units SC Qpm - Insulin Lispro 100units/mL 5 units SC 3xday - Magnesium Oxide 400mg 2xday - Melatonin 3mg x2 Qpm - Metformin 1,000mg 2xday - Mexiletine 150mg 2xday - Potassium Chloride 20meq 1xday - Suvorexant 20mg Qpm - Ticagrelor 90mg 2xday - Valsartan 320mg 1xday Allergies: - Hay Fever FHx: - Father: CABG - Brother: Renal issues, Fatty Liver SHx: - Non-smoker - Very rare alcohol use - No illicity drug use - 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 [employer], loves 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 job - Happily for 33 years, has 2 adopted sons - Lives at home with ROS: - Constitutional: some generalized fatigue & lightheadedness; denies fevers, chills, or change in appetite - HEENT: denies vertigo, rhinorrhea, congestion, sore throat, hearing loss, diplopia - CV: endoses peripheral edema & orthopnea; denies any pallpitations, PND, or chest pain - Respiratory: endorses SOB with exertion & laying down; denies wheezing, cough, hemoptysis - GI: endorses diffuse abdominal pain & 2 episodes of melena with prior constipation; denies any diarrhea, hematochezia, change in frequency or consistency - Urinary: denies dysuria/polyuria, hematuria, hesitancy, urgency - : denies penile discharge, sores, testicular pain, hernias - MSK: right hand stiffness; denies swelling, tenderness in joints - Neurologic: Some loss of sensation & numbness in feet/lower extremities d/t diabetic neuropathy; denies any unsteadiness in gait or tingling - Skin: denies rashes, bruises - Psych: denies depressed or anxious mood, change in mood Otherwise as indicated in HPI Objective Objective: Last 24 Hrs of Vital Signs/I&O Vital Signs Date Time Temp Pulse Resp B/P B/P Pulse O2 O2 Flow FiO2 Mean Ox Delivery Rate 04/14 1407 97.7 85 20 113/55 99 Room Air 04/14 1137 96.7 103 80/43 98 Room Air Intake & Output 04/14 1600 04/14 0800 04/14 0000 Intake Total 1000 Output Total Balance 1000 Intake, IV 1000 Patient 245 lb Weight Weight Reported by Patient Measurement Method Physical Exam: - General: Well developed, pleasant, obese male, who is A&Ox3, with positive affect, appropriately dressed, and appears to be inno acute distress. - Skin: Slightly yellow/icteric appearing, warm & dry on palpation - HEENT: Atraumatic, mild scleral icterus, pupils equally round and reactive to light, normal hearing bilaterally, no pain on palpation of sinuses, mucous membranes pink & moist, no drainage or discharge, trachea midline - Chest: ICD palpated on the Left MCL around 2nd ICS, normal chape of chest, no palpable thrills or murmurs, normal chest movements with inpiration & expiration - CV: Normal S1 & S2, regular rate & rhythm, 2/6 systolic murmur best heard in the mitral area - Lungs: auscultation of the posterior chest wall reveals normal breath sounds throughout bilateral lung clement - Abdomen: Normal bowel sounds throughout, tenderness to palpation on the right and left upper quadrants/epigastric region, tenderness to deep palpation in right lower quadrant/inguinal region, diffuse tenderness throughout, evidence of guarding and distension, liver edge palpated 2cm bellow the right coastal margin. - Neurological: Decreased sensation over the soles of both feet, mildly decreased sensation over the left toes. - Extremeties: 1+ pitting edema over the left foot & cook, up to the knee, evidence of prior cellulitis in the left leg due to skin thickening and discolouration. Strength & sesnsation intact. Results Results: Last 24 Hrs of Labs/Shady: Laboratory Tests 04/14/17 1207: Anion Gap 13, Estimated GFR > 60, BUN/Creatinine Ratio 53.6 H, Glucose 249 H, Calcium 9.6, Total Bilirubin 0.5, AST 38, ALT 32, Alkaline Phosphatase 63, Troponin I 0.94 *H, Total Protein 6.5, Albumin 3.5, Globulin 3.0, Albumin/ Globulin Ratio 1.2, PT 13.0 H, INR 1.24 H, CBC w Diff MAN DIFF ORDERED, RBC 3.25 L, MCV 87.3, MCH 28.6, MCHC 32.8 L, RDW 15.5 H, MPV 10.2, Gran % 50.4, Lymphocytes % 26.0, Monocytes % 21.2 H, Eosinophils % 1.9, Basophils % 0.5, Absolute Granulocytes 4.4, Absolute Lymphocytes 2.3, Absolute Monocytes 1.9 H, Absolute Eosinophils 0.2, Absolute Basophils 0, Platelet Estimate ADEQUATE, Hypochromic-Microcytic 2+, Anisocytosis 1+ Diagnostic Data Other Results CT Abdomen/Pelvis w/contrast: 1. No acute imaging findings within the abdomen or pelvis compared to 12/08/2016. 2. Chronic cirrhosis and splenomegaly. Stable appearance of the reactive periportal lymphadenopathy. No ascites. 3. No acute findings along the gastrointestinal tract. 4. Mildly enlarged left inguinal lymph nodes remain unchanged.
--- NOTE | 2017-04-15 18:08 | ECHOCARDIOGRAM REPORT ---
HOUSTON RUBI Age: 61 : 1955 Gender: M Exam Date: 04/14/2017 19:52 Exam Location: [facility] [place] Ht (in): 69 Wt (lb): 245 BSA: 2.37 BP: 104 / 51 Ordering Physician: Robyn Borrego MD Referring Physician: Andres Beasley MD, PhD Technologist: Rocio Plaza [facility] Room Number: [id number] Indications: EVALUATION OF ASCENDING AORTA Rhythm: Sinus Technical Quality: fair FINDINGS Left Ventricle Normal left ventricular size with mild left ventricular hypertrophy. Hyperdynamic systolic function with no obvious regional wall motion abnormalities. Diastolic filling pattern is consistent with impaired LV relaxation. The ejection fraction is visually estimated at 80%. Right Ventricle The right ventricle is normal in size and function. Defibrillator lead noted in the right cardiac chambers Right Atrium The right atrium is normal in size. Left Atrium The left atrium is mildly enlarged. The interatrial septum is intact. Mitral Valve The mitral valve demonstrates mild annular calcification with normal function. There is no mitral regurgitation. Aortic Valve Mildly thickened and sclerotic aortic valve without significant stenosis. There is no aortic regurgitation. Tricuspid Valve The tricuspid valve is normal in structure and function. There is trace tricuspid regurgitation. Pulmonary artery systolic pressure is normal. Pulmonic Valve Structurally normal pulmonic valve. There is trace pulmonic regurgitation. Pericardium Normal pericardium without effusion. No pleural effusion. Great Vessels Normal aortic root dimension. The aortic arch and great vessels are well seen and are normal. CONCLUSIONS 1. Hyperdynamic EF of 80% with impaired LV relaxation. 2. Mild left ventricular hypertrophy. 3. Mild left atrial enlargement. 4. Trace tricuspid regurgitation. 5. Trace pulmonic regurgitation. 6. Mild aortic sclerosis without significant stenosis. Andres Beasley M.D. (Electronically Signed) Final Date: 15 April 2017 18:07 MEASUREMENTS (Male / Female) Normal Values 2D ECHO LV Diastolic Diameter PLAX 3.9 cm 4.2 - 5.9 / 3.9 - 5.3 cm LV Systolic Diameter PLAX 1.6 cm 2.1 - 4.0 cm LV Fractional Shortening PLAX 59.0 % 25 - 46 % LV Ejection Fraction 2D Teich 89.1 % IVS Diastolic Thickness 1.5 cm LVPW Diastolic Thickness 1.5 cm LV Relative Wall Thickness 0.8 RV Internal Dim ED PLAX 3.4 cm 1.9 - 3.8 cm LVOT Diameter 2.0 cm Aortic Root Diameter 3.0 cm LA Systolic Diameter LX 4.1 cm 3.0 - 4.0 / 2.7 - 3.8 cm LA Volume 41.0 cm 18 - 58 / 22 - 52 cm Ascending Aorta Diameter 3.1 cm DOPPLER AV Peak Velocity 253.0 cm/s AV Peak Gradient 25.6 mmHg AV Mean Velocity 169.0 cm/s AV Mean Gradient 13.0 mmHg AV Velocity Time Integral 44.2 cm LVOT Peak Velocity 138.0 cm/s LVOT Peak Gradient 7.6 mmHg LVOT Mean Velocity 104.0 cm/s LVOT Mean Gradient 5.0 mmHg LVOT Velocity Time Integral 21.5 cm LVOT Stroke Volume 67.5 cm AV Area Cont Eq vti 1.5 cm AV Area Cont Eq pk 1.7 cm MV Peak Velocity 162.0 cm/s MV Peak Gradient 10.5 mmHg MV Mean Velocity 98.8 cm/s MV Mean Gradient 4.0 mmHg Mitral E Point Velocity 71.1 cm/s Mitral A Point Velocity 108.0 cm/s Mitral E to A Ratio 0.7 MV PHT Velocity 137.0 cm/s MV Deceleration Hood 420.0 cm/s MV Pressure Half Time 97.9 ms MV Area PHT 2.2 cm MV Deceleration Time 261.0 ms TR Peak Velocity 190.0 cm/s TR Peak Gradient 14.4 mmHg Right Atrial Pressure 5.0 mmHg Pulmonary Artery Systolic Pressu 19.4 mmHg Right Ventricular Systolic Press 19.4 mmHg PV Peak Velocity 177.0 cm/s PV Peak Gradient 12.5 mmHg PV Mean Velocity 109.0 cm/s PV Mean Gradient 6.0 mmHg PV Velocity Time Integral 26.7 cm LV E' Lateral Velocity 6.1 cm/s Mitral E to LV E' Lateral Ratio 11.6 LV E' Septal Velocity 4.3 cm/s Mitral E to LV E' Septal Ratio 16.6
[2017-04-15 18:56] LABS: ABSOLUTE BASOPHIL COUNT 0 /CUMM (0.0-0.2); ABSOLUTE EOSINOPHIL COUNT 0.2 /CUMM (0.0-0.7); ABSOLUTE GRANULOCYTE CT 4.5 /CUMM (1.4-6.5); ABSOLUTE LYMPH COUNT 2.3 /CUMM (1.2-3.4); ABSOLUTE MONOCYTE COUNT 1.2 /CUMM (0.10-0.60); BASOPHIL % 0.5 % (0.0-2.0); EOSINOPHIL % 2.4 % (0-5); GRANULOCYTE % 54.4 % (42.2-75.2); HEMATOCRIT 27.3 % (42-52); MEAN CORPUSCULAR HGB 28.4 PG (27.0-31.0); MEAN CORPUSCULAR VOLUME 86.3 FL (80.0-94.0); MEAN PLATELET VOLUME 9.4 FL (7.4-10.4); PLATELET COUNT 162 /CUMM (130-400); RBC DISTRIBUTION WIDTH 15.5 % (11.5-14.5); RED BLOOD CELL CT 3.17 /CUMM (4.70-6.10); WHITE BLOOD CELL COUNT 8.2 /CUMM (4.8-10.8)
--- NOTE | 2017-04-15 20:01 | PN- Cardiology ---
Subjective Subjective: * Patient feels improved with minimal shortness of breath and no chest discomfort. * sinus rhythm * no definite source of bleeding on endoscopy * improved H/H * cardiac enzymes are elevated but are trending down * Normal EF on echo Objective Vital Signs and I&Os Vital Signs Date Time Temp Pulse Resp B/P B/P Pulse O2 O2 Flow FiO2 Mean Ox Delivery Rate 04/15 1600 Room Air 04/15 1446 97.5 80 18 120/72 97 Room Air 04/15 0905 110/60 04/15 0605 97.4 78 18 104/64 97 Room Air 04/15 0250 97.7 80 18 110/54 97 Room Air 04/14 2211 98.0 88 20 124/62 99 Room Air 04/14 2101 83 112/62 Intake & Output 04/15 1600 04/15 0800 04/15 0000 04/14 1600 04/14 0800 04/14 0000 Intake Total 1000 079 142 7590 Output Total 750 Balance 250 757 944 7997 Intake, IV 600 469 269 7858 Intake, Oral 400 100 456 Number 1 Bowel Movements Output, Urine 750 Patient 245 lb 245 lb Weight Weight Reported by Patient Reported by Patient Measurement Method Physical Exam: General: WD/WN male in NAD; alert and oriented x 3 HEENT: NC/AT, PERRL, EOMI Neck: no JVD, no carotid bruit Heart: RRR Lungs: clear bilaterally Abdomen: soft, NT, +ve bowel sounds Extremities: no edema Assessment/Plan Assessment/Plan * An endoscopy showed a pre-pyloric ulcer with clean base and esophageal varices. A colonoscopy is planned for the morning. Continue a PPI and follow his H/H. * We will continue coreg as his beta clint for now since it also has beneficial alpha blocking properties. Continue telemetry? Yes
[2017-04-15 22:09] VITALS: BP 118/64
[2017-04-16 06:53] VITALS: BP 134/70
[2017-04-16 07:58] LABS: ABSOLUTE BASOPHIL COUNT 0 /CUMM (0.0-0.2); ABSOLUTE EOSINOPHIL COUNT 0.2 /CUMM (0.0-0.7); ABSOLUTE GRANULOCYTE CT 3.4 /CUMM (1.4-6.5); ABSOLUTE LYMPH COUNT 1.9 /CUMM (1.2-3.4); BASOPHIL % 0.5 % (0.0-2.0); EOSINOPHIL % 2.4 % (0-5); GRANULOCYTE % 51.8 % (42.2-75.2); HEMATOCRIT 23.7 % (42-52); MEAN CORPUSCULAR HGB CONC 33.4 G/DL (33.0-37.0); MEAN PLATELET VOLUME 9.4 FL (7.4-10.4); PLATELET COUNT 130 /CUMM (130-400); RBC DISTRIBUTION WIDTH 15.3 % (11.5-14.5); RED BLOOD CELL CT 2.73 /CUMM (4.70-6.10); WHITE BLOOD CELL COUNT 6.5 /CUMM (4.8-10.8)
--- NOTE | 2017-04-16 08:27 | PN- Housestaff ---
See Addendum Subjective Follow-up For: GI bleed Tele-Events Since Last Visit: NSR: 60-81, PVCs Subjective: Patient was seen and examined today. Patient states that he is feeling well this morning. Patient had multiple bowel movements of black tarry stool. Last two bowel movements per patient were clear. Patient denies any abdominal pain, nausea/vomitting, dizziness/lightheadedness. Denies chest pain, palpitations, sob, fever/chills. Review of Systems Constitutional: Reports: no symptoms. Cardiovascular: Reports: no symptoms. Respiratory: Reports: no symptoms. Gastrointestinal: Reports: see HPI. Genitourinary: Reports: no symptoms. Musculoskeletal: Reports: no symptoms. Neurological/Psychological: Reports: no symptoms. Objective Last 24 Hrs of Vital Signs/I&O Vital Signs Date Time Temp Pulse Resp B/P B/P Pulse O2 O2 Flow FiO2 Mean Ox Delivery Rate 04/16 0904 79 110/54 04/16 0859 79 110/54 04/16 0800 Room Air 04/16 0653 98.1 70 20 134/70 99 CPAP 04/16 0000 CPAP 04/15 2222 84 118/64 04/15 2209 97.6 74 18 118/64 99 Room Air 04/15 1600 Room Air 04/15 1446 97.5 80 18 120/72 97 Room Air Intake & Output 04/16 1600 04/16 0800 04/16 0000 Intake Total 300 1020 Output Total Balance 300 1020 Intake, IV 300 20 Intake, Oral 1000 Number 2 Bowel Movements Physical Exam General Appearance: Alert, Oriented X3, Cooperative, No Acute Distress HEENT: Atraumatic, PERRLA, EOMI, Mucous Membr. moist/pink Cardiovascular: Regular Rate, Normal S1, Normal S2, No Murmurs Lungs: Clear to Auscultation, Normal Air Movement Abdomen: Normal Bowel Sounds, Soft, No Tenderness Neurological: Normal Speech Extremities: No Clubbing, No Cyanosis, No Edema, Normal Pulses, No Tenderness/ Swelling Current Medications: Current Medications Sig/Jasvir Start time Last Medication Dose Route Stop Time Status Admin Acetaminophen 650 MG Q6P PRN 04/14 1630 AC 04/14 PO 2112 Atorvastatin Calcium 40 MG 1800 04/15 1800 AC 04/15 PO 1810 Atorvastatin Calcium 80 MG 1800 04/14 1800 DC 04/14 PO 2055 Bisacodyl 5 MG 1900 04/15 1900 DC PO 04/15 1901 Bisacodyl 10 MG 1900 04/15 1900 DC 04/15 PO 04/15 1901 1848 Carvedilol 12.5 MG BID 04/14 2199 AC 04/16 PO 0904 Chlorhexidine 1 GM .STK-MED ONE 04/16 1402 DC Gluconate TOP 04/16 1403 Dextrose/Sodium 1,000 ML ONCE ONE 04/16 0000 AC 04/16 Chloride IV 04/16 1959 0035 Insulin Aspart 0 TIDAC 04/14 1715 DC 04/15 SC 04/15 2355 1811 Insulin Detemir 20 UNITS QPM 04/14 2200 AC 04/15 SC 2221 Insulin Human Regular 2 UNITS .STK-MED ONE 04/16 0619 DC IV 04/16 0620 Insulin Human Regular 2 UNITS .STK-MED ONE 04/16 0054 DC IV 04/16 0055 Insulin Human Regular 0 Q6 04/15 2359 AC 04/16 SC 1123 Magnesium Oxide 400 MG BID 04/14 220 AC 04/16 PO 0904 Melatonin 6 MG QPM 04/14 2200 AC 04/15 PO 2221 Mexiletine HCl 150 MG BID 04/14 2200 AC 04/16 PO 0904 Pantoprazole Sodium 40 MG BID 04/15 1000 AC 04/16 IV 0904 Patient Medication 1 ED ONE ONE 04/16 1200 DC Teaching ED 04/16 1201 Patient Medication 1 ED ONE ONE 04/15 1645 DC 04/15 Teaching ED 04/15 1646 1645 Patient Medication 1 ED ONE ONE 04/15 1630 DC 04/15 Teaching ED 04/15 1631 1630 Polyethylene Glycol 1 GAL ONCE ONE 04/15 1530 DC 04/15 PO 04/15 1531 1811 Sodium Chloride 1,000 ML .[id number] 04/14 1630 DC 04/15 IV 04/15 1909 0030 Last 24 Hrs of Lab/Shady Results Last 24 Hrs of Labs/Mics: Laboratory Tests 04/16/17 0612: Anion Gap 10, Estimated GFR > 60, BUN/Creatinine Ratio 34.5 H, CBC w Diff NO MAN DIFF REQ, RBC 2.73 L, MCV 87.0, MCH 29.0, MCHC 33.4, RDW 15.3 H, MPV 9.4, Gran % 51.8, Lymphocytes % 29.9, Monocytes % 15.4 H, Eosinophils % 2.4, Basophils % 0.5, Absolute Granulocytes 3.4, Absolute Lymphocytes 1.9, Absolute Monocytes 1.0 H, Absolute Eosinophils 0.2, Absolute Basophils 0 04/15/171999: CBC w Diff Cancelled, WBC Cancelled, RBC Cancelled, Hgb Cancelled, Hct Cancelled , MCV Cancelled, MCH Cancelled, MCHC Cancelled, RDW Cancelled, Plt Count Cancelled, MPV Cancelled 04/15/17 1756: CBC w Diff NO MAN DIFF REQ, RBC 3.17 L, MCV 86.3, MCH 28.4, MCHC 33.0, RDW 15.5 H, MPV 9.4, Gran % 54.4, Lymphocytes % 27.5, Monocytes % 15.2 H, Eosinophils % 2.4, Basophils % 0.5, Absolute Granulocytes 4.5, Absolute Lymphocytes 2.3, Absolute Monocytes 1.2 H, Absolute Eosinophils 0.2, Absolute Basophils 0 Assessment/Plan Assessment: Patient is a 61-year-old male with past medical history of hyperlipidemia, hypertension, diabetes, obstructive sleep apnea on CPAP, CAD status post recent stent 4, placed on December 10, 2016 at [facility] and s/p AICD placement on December 18, 2016 presenting this admission with chief complaint of black tarry stools. Patient had an EGD yesterday which showed a small area of prepyloric ulcer, mild portal hypertensive gastropathy, small grade 1 esophageal varices and no active bleeding. Per GI recommendations patient received bowel prep for colonoscopy today. Patient today had a colonoscopy which showed two polyps and no active bleeding. Per GI patient will require a pill cam outpatient for further evaluation. Patient's diet was advanced today. Patient has been hemodynamically stable. Patient's H&H dropped from 9.0 to 7.9. Patient will have repeat CBC today to monitor H&H. If patient is stable he will likely be discharge home tomorrow with close follow up with GI and to continue omeprazole 40mg BID. Patient has stents x [address] Dual antiplatelet therapy was held in the setting of GI bleed. Will restart pending cardiology recommendations. Patient will be admitted to telemetry for management of the followin. Anemia likely 2/2 to GI Bleed - Admit to telemetry - Monitor CBC today and 6AM tomorrow - GI prophylaxis with IV protonix BID. Discontinue and start on omeprazole BID - GI consulted. Appreciate recommendations - Guiac all stool, monitor vitals including orthostats 2. Elevated troponin. Likely Demand Ischemia/Type II [place] Troponins trended down. No acute changes on EKG. - admit and monitor on tele - cardiology consult 3. CAD s/p drug-eluting stents (x4) and AICD - Please continue carvedilol, atrovastatin - hold aspirin and brilinta per cardiology 4. Electrolyte abnormalities: Hyperkalemia has resolved - monitor K+ - monitor for EKG changes 5. Chronic conditions: HUGH, HTN, DM, HLD - continue CPAP ( to bring patient's machine from home) - hold antihypertensives in setting of GI bleed - accucheck, insulin SS and levemir 20 units qhs - continue atorvastatin Code: full code DVT prophylaxis: mechanical only in setting of GI bleed Diet: diabetic diet Problem List: 1. GI bleed 2. Anemia 3. Elevated troponin Pain Ratin Pain Location: n/a Pain Goal: Remain pain free Pain Plan: n/a Tomorrow's Labs & Rationales: cbc
[2017-04-16 08:59] VITALS: BP 110/54
[2017-04-16 14:52] VITALS: BP 102/62
[2017-04-16 16:09] LABS: ABSOLUTE BASOPHIL COUNT 0 /CUMM (0.0-0.2); ABSOLUTE EOSINOPHIL COUNT 0.1 /CUMM (0.0-0.7); ABSOLUTE LYMPH COUNT 1.7 /CUMM (1.2-3.4); ABSOLUTE MONOCYTE COUNT 0.8 /CUMM (0.10-0.60); BASOPHIL % 0.3 % (0.0-2.0); EOSINOPHIL % 2.1 % (0-5); GRANULOCYTE % 53.4 % (42.2-75.2); HEMATOCRIT 24.3 % (42-52); MEAN CORPUSCULAR HGB 28.1 PG (27.0-31.0); MEAN CORPUSCULAR HGB CONC 32.3 G/DL (33.0-37.0); MEAN CORPUSCULAR VOLUME 87.3 FL (80.0-94.0); MEAN PLATELET VOLUME 9.2 FL (7.4-10.4); PLATELET COUNT 128 /CUMM (130-400); RBC DISTRIBUTION WIDTH 15.5 % (11.5-14.5); RED BLOOD CELL CT 2.79 /CUMM (4.70-6.10)
[2017-04-16 16:44] LABS: WHITE BLOOD CELL COUNT 6.4 /CUMM (4.8-10.8)
[2017-04-16 21:19] VITALS: BP 130/78
--- NOTE | 2017-04-17 07:40 | PN- Cardiology ---
Subjective Subjective: Feels good, no chest pain, dyspnea or abdominal pain Objective Vital Signs and I&Os Vital Signs Date Time Temp Pulse Resp B/P B/P Pulse O2 O2 Flow FiO2 Mean Ox Delivery Rate 04/17 0000 96 CPAP 04/16 2120 130/78 04/169 97.7 71 18 130/78 100 04/16 1452 97.6 70 18 102/62 100 Room Air 04/16 0904 79 110/54 04/16 0859 79 110/54 04/16 0800 Room Air Intake & Output 04/17 0800 04/17 0000 04/16 1600 04/16 0800 04/16 0000 04/15 1600 Intake Total 450 100 267 461 3250 1000 Output Total 750 Balance 450 100 118 663 1319 250 Intake, Blood 350 Product Intake, IV 420 300 20 600 Intake, Oral 100 132 010 3154 400 Number 3 2 Bowel Movements Output, Urine 750 Physical Exam: HEENT-PERRLA Neck-JVP normal,no bruits Lungs-clear bilaterally Heart-S1S1 regular, 1/6 LELAND Abdomen-soft, not tender,no distended, BS+ Extr-no edema, 2+ pulses, no cyanosis Neuro-non focal Assessment/Plan Assessment/Plan 61 year old male with CAD, s/p DESx4 in 11/2016,HTN, HLP, DM presented with UGI bleed. Found to have non bleeding ulcer, stage 1 esophageal varices. Troponin borderline elevated likely due to demand ischemia (no current cardiac symptoms). Echo showed no wall motion abnormalities. EGD and colonscopy results noted. CT scan showed liver cirrhosis-no h/o ETOH abuse, likely steatohepatitis (he was told by his GI in [place]) Plan; clopdogrel 75 mg poqd-start today of OK with Dr. James continue other cardiac meds no Aspirin (gastric ulcer) f/u with me in 1-2 weeks (will schedule) as per GI he may need camera capsule Continue telemetry? No
--- NOTE | 2017-04-17 07:50 | Patient Discharge Instructions ---
Discharge Instructions General Discharge Information You were seen/treated for: GI bleed You had these procedures: EGD Colonoscopy Special Instructions: 1. Please do not take aspirin and brilinta 2. Please see the machine inker, construction recruiter and pcp within 1 week of discharge 3. [place] note the medication changes that have been made: - continue taking plavix once a day - continue taking pantoprazole two times a day 4. If you have any symptoms: bleeding, dizziness, chest pain please call your doctor or come back to the hospital 5. Please have blood work done on 04/21. You have been given a script. Diet Continue normal diet: No Recommended Diet: Diabetic Activity Full Activity/No Limits: No Activity Self Limited: Yes Acute Coronary Syndrome Inclusion Criteria At DC or during hospital stay patient has or had the following: ACS DIAGNOSIS No Discharge Core Measures Meds if any: Prescribed or Continued at Discharge Meds if any: NOT Prescribed or Continued at Discharge Congestive Heart Failure Inclusion Criteria At DC or during hospital stay patient has or had the following: CHF DIAGNOSIS No Discharge Core Measures Meds if any: Prescribed or Continued at Discharge Meds if any: NOT Prescribed or Continued at Discharge Cerebrovascular accident Inclusion Criteria At DC or during hospital stay patient has or had the following: CVA/TIA Diagnosis No Discharge Core Measures Meds if any: Prescribed or Continued at Discharge Meds if any: NOT Prescribed or Continued at Discharge Venous thromboembolism Inclusion Criteria VTE Diagnosis No VTE Type NONE VTE Confirmed by (Test) NONE Discharge Core Measures - Per Current guidelines, there needs to be overlap - treatment for the first 5 days of Warfarin therapy. - If discharged on Warfarin prior to 5 days of - overlap therapy, the patient will need to be - assessed for post discharge needs including - *Post discharge parental anticoagulation - *Warfarin and/or parental anticoagulation education - *Follow up date to check INR post discharge At least 5 days overlap therapy as Inpatient No Meds if any: Prescribed or Continued at Discharge Note: Overlap Therapy is Warfarin and Anticoagulant Meds if any: NOT Prescribed or Continued at Discharge
--- NOTE | 2017-04-17 07:52 | PN- Housestaff ---
See Addendum Subjective Follow-up For: GI bleed Tele-Events Since Last Visit: Normal sinus rhythm heart rate 60-81 Subjective: Patient was seen and examined today. Patient denies any complaints today. States that he slept well and has tolerated a regular diet. Patient has not had a bowel movement overnight since his colonoscopy. Patient denies any lightheadedness, dizziness, chest pain, abdominal pain, nausea/vomiting, hematemesis, bright red blood per rectum, melena, hematuria/dysuria. No acute events overnight. Review of Systems Constitutional: Reports: no symptoms. Cardiovascular: Reports: no symptoms. Respiratory: Reports: no symptoms. Gastrointestinal: Reports: no symptoms. Genitourinary: Reports: no symptoms. Musculoskeletal: Reports: no symptoms. Neurological/Psychological: Reports: no symptoms. Hematologic/Endocrine: Reports: no symptoms. Objective Last 24 Hrs of Vital Signs/I&O Vital Signs Date Time Temp Pulse Resp B/P B/P Pulse O2 O2 Flow FiO2 Mean Ox Delivery Rate 04/17 0850 81 130/64 04/17 0849 81 130/64 04/17 0800 Room Air 04/17 0000 96 CPAP 04/16 2120 130/78 04/16 2118 97.7 71 18 130/78 100 04/16 1452 97.6 70 18 102/62 100 Room Air Intake & Output 04/17 1600 04/17 0800 04/17 0000 Intake Total 450 100 Output Total Balance 450 100 Intake, Blood 350 Product Intake, Oral 100 100 Physical Exam General Appearance: Alert, Oriented X3, Cooperative, No Acute Distress HEENT: Atraumatic, PERRLA, EOMI, Mucous Membr. moist/pink Cardiovascular: Regular Rate, Normal S1, Normal S2 Lungs: Clear to Auscultation, Normal Air Movement Abdomen: Normal Bowel Sounds, Soft, No Tenderness Extremities: No Clubbing, No Cyanosis, No Edema, Normal Pulses, No Tenderness/ Swelling Current Medications: Current Medications Sig/Jasvir Start time Last Medication Dose Route Stop Time Status Admin Acetaminophen 650 MG Q6P PRN 04/14 1630 AC 04/14 PO 2113 Atorvastatin Calcium 40 MG 1800 04/15 1800 AC 04/16 PO 1625 Carvedilol 12.5 MG BID 04/14 2200 AC 04/17 PO 0850 Chlorhexidine 1 GM .STK-MED ONE 04/16 1402 DC Gluconate TOP 04/16 1403 Dextrose/Sodium 1,000 ML ONCE ONE 04/16 0000 DC 04/16 Chloride IV 04/16 1959 0035 Insulin Aspart 0 TIDAC 04/16 1700 AC 04/16 SC 1721 Insulin Detemir 20 UNITS QPM 04/14 220 AC 04/16 SC 2120 Insulin Human Regular 4 UNITS .STK-MED ONE 04/16 1122 DC IV 04/16 1123 Insulin Human Regular 0 Q6 04/15 2359 DC 04/16 SC 1123 Magnesium Oxide 400 MG BID 04/14 220 AC 04/17 PO 0850 Melatonin 6 MG QPM 04/14 220 AC 04/16 PO 2120 Mexiletine HCl 150 MG BID 04/14 2199 AC 04/17 PO 0850 Omeprazole 40 MG BID 04/16 2199 AC 04/17 PO 0850 Pantoprazole Sodium 40 MG BID 04/15 1000 DC 04/16 IV 0904 Patient Medication 1 ED ONE ONE 04/16 1200 DC 04/16 Teaching ED 04/16 1201 2121 Last 24 Hrs of Lab/Shady Results Last 24 Hrs of Labs/Mics: Laboratory Tests 04/17/17 0612: CBC w Diff NO MAN DIFF REQ, RBC 2.93 L, MCV 86.3, MCH 28.7, MCHC 33.2, RDW 15.4 H, MPV 9.3, Gran % 52.2, Lymphocytes % 29.5, Monocytes % 15.8 H, Eosinophils % 2.1, Basophils % 0.4, Absolute Granulocytes 3.2, Absolute Lymphocytes 1.8, Absolute Monocytes 1.0 H, Absolute Eosinophils 0.1, Absolute Basophils 0 04/16/17 1524: CBC w Diff MAN DIFF ORDERED, RBC 2.79 L, MCV 87.3, MCH 28.1, MCHC 32.3 L, RDW 15.5 H, MPV 9.2, Gran % 53.4, Lymphocytes % 29.9, Monocytes % 14.3 H, Eosinophils % 2.1, Basophils % 0.3, Absolute Granulocytes 3.0, Segmented Neutrophils 54, Absolute Lymphocytes 1.7, Lymphocytes 31, Monocytes 10 H, Absolute Monocytes 0.8 H, Eosinophils 5, Absolute Eosinophils 0.1, Absolute Basophils 0, Nucleated RBCs 1 H, Platelet Estimate ADEQUATE, Polychromasia 1+, Hypochromic-Microcytic 2+, Anisocytosis 1+ Assessment/Plan Assessment: Patient is a 61-year-old male with past medical history of hyperlipidemia, hypertension, diabetes, obstructive sleep apnea on CPAP, CAD status post recent stent 4, placed on December 10, 2016 at [place] and s/p AICD placement on December 18, 2016 presenting this admission with chief complaint of black tarry stools. Assessment/Plan: Patient had an EGD on 04/15 which showed a small area of prepyloric ulcer, mild portal hypertensive gastropathy, small grade 1 esophageal varices and no active bleeding. Patient had a colonoscopy on 04/16 which showed two polyps and no active bleeding. Per GI patient will require a pill cam outpatient for further evaluation. Patient's diet was advanced yesterday and he tolerated it well. Patient has been hemodynamically stable. Patient's H&H dropped to 7.8 yesterday. He had a blood transfusion overnight. H&H is stable at 8.4 today. Patient was seen by cardiology today and is started on plavix with GI clearance. Patient is to follow up with Dr. Kruger, Dr. James and his pcp within 1 week of discharge. Patient sent with a script for repeat CBC. Patient also has cirrhosis seen on CT abdomen and pelvis and reportedly was told by his physician in [place] that he has steatohepatitis. Patient sent with script for hepatitis panel. Patient to be discharged on plavix 75mg daily and protonix 40mg BID. Patient will be admitted to telemetry for management of the followin. Anemia likely 2/2 to GI Bleed - Admitted to telemetry - H&H stable. Patient will be discharged today - GI prophylaxis with omeprazole 40mg BID. Patient discharged on protonix 40mg BID. - GI consulted. Appreciate recommendations - Patient to be discharged with follow up with GI for pill cam 2. Elevated troponin. Likely Demand Ischemia/Type II [place] Troponins trended down. No acute changes on EKG. - admit and monitor on tele - cardiology consult 3. CAD s/p drug-eluting stents (x4) and AICD - Please continue carvedilol, atrovastatin - hold aspirin and brilinta per cardiology - started on plavix per cardiology and GI clearance 4. Electrolyte abnormalities: Hyperkalemia has resolved 5. Chronic conditions: HUGH, HTN, DM, HLD - continue CPAP ( to bring patient's machine from home) - hold antihypertensives in setting of GI bleed - accucheck, insulin SS and levemir 20 units qhs - continue atorvastatin Code: full code DVT prophylaxis: mechanical only in setting of GI bleed Diet: diabetic diet Dispo: discharge home today with close follow up with GI, cardiology and PCP Problem List: 1. GI bleed 2. Anemia 3. Elevated troponin Pain Ratin Pain Location: n/a Pain Goal: Remain pain free Pain Plan: n/a Tomorrow's Labs & Rationales: none - discharge today
[2017-04-17] MEDS ORDERED: PLAVIX75 M1 PO ×2 (07:59→09:45)
[2017-04-17] MEDS ORDERED: PROTONIX40 M3 PO ×2 (07:59→09:45)
[2017-04-17 08:11] LABS: ABSOLUTE BASOPHIL COUNT 0 /CUMM (0.0-0.2); ABSOLUTE EOSINOPHIL COUNT 0.1 /CUMM (0.0-0.7); ABSOLUTE GRANULOCYTE CT 3.2 /CUMM (1.4-6.5); ABSOLUTE LYMPH COUNT 1.8 /CUMM (1.2-3.4); BASOPHIL % 0.4 % (0.0-2.0); EOSINOPHIL % 2.1 % (0-5); GRANULOCYTE % 52.2 % (42.2-75.2); HEMATOCRIT 25.2 % (42-52); MEAN CORPUSCULAR HGB 28.7 PG (27.0-31.0); MEAN CORPUSCULAR HGB CONC 33.2 G/DL (33.0-37.0); MEAN CORPUSCULAR VOLUME 86.3 FL (80.0-94.0); MEAN PLATELET VOLUME 9.3 FL (7.4-10.4); PLATELET COUNT 115 /CUMM (130-400); RBC DISTRIBUTION WIDTH 15.4 % (11.5-14.5); RED BLOOD CELL CT 2.93 /CUMM (4.70-6.10); WHITE BLOOD CELL COUNT 6.1 /CUMM (4.8-10.8)
--- NOTE | 2017-04-17 08:42 | Discharge Summary ---
Visit Information Visit Dates Admission Date: 04/14/17 Discharge Date: 04/17/17 Hospital Course Course Attending Physician: Colton Kiser MD Primary Care Physician: Margot Pierre DO Consulting Request: 1 Consulting Specialty: Cardiology Consulting Physician: Dr. Prince Quintanilla, Dr. Rikki James Reason for Consult: GI Bleed Consulting Request: 2 Consulting Specialty: Cardiology Consulting Physician: Dr. Andres Kruger Hospital Course: Patient is a 61-year-old male with past medical history of hyperlipidemia, hypertension, diabetes, obstructive sleep apnea on CPAP, CAD status post recent stent 4, placed on December 10, 2016 at [facility] and s/p AICD placement on December 18, 2016 presenting this admission with chief complaint of black tarry stools. On admission: Vitals afebrile, heart rate 103, respiratory rate 20, blood pressure 80/42 to 113/55 after normal saline 1 L bolus, saturating at 99 on room air. Pertinent labs WBC 8.8, hemoglobin 9.3 and hematocrit 28.4, platelet 171. Potassium 5.2, BUN 59 and creatinine 1.1. Glucose 214. Troponin 0.94. LFTs normal. Coags were normal. Imaging: CT abdomen/pelvis was done which showed cirrhosis, splenomegaly, no ascites, no new changes compared to prior CAT scan. EKG showed sinus rhythm, rate 85, no ST-T wave changes. Patient had an EGD on 04/15 which showed a small area of prepyloric ulcer, mild portal hypertensive gastropathy, small grade 1 esophageal varices and no active bleeding. Patient had a colonoscopy on 04/16 which showed two polyps and no active bleeding. Per GI patient will require a pill cam outpatient for further evaluation. Patient's diet was advanced yesterday and he tolerated it well. Patient has been hemodynamically stable. Patient's H&H dropped to 7.8 yesterday. He had a blood transfusion overnight. H&H is stable at 8.4 today. Patient was seen by cardiology today and is started on plavix with GI clearance. Patient is to follow up with Dr. Kruger, Dr. James and his pcp within 1 week of discharge. Patient sent with a script for repeat CBC. Patient also has cirrhosis seen on CT abdomen and pelvis and reportedly was told by his physician in [place] that he has steatohepatitis. Patient sent with script for hepatitis panel. Patient to be discharged on plavix 75mg daily and protonix 40mg BID. Patient will be admitted to telemetry for management of the followin. Symptomatic Anemia 2/2 to Suspected GI Bleed - Admitted to telemetry - H&H stable. Patient will be discharged today - GI prophylaxis with omeprazole 40mg BID. Patient discharged on protonix 40mg BID. - GI consulted. Appreciate recommendations - Patient to be discharged with follow up with GI for pill cam 2.Type II IN Troponins trended down. No acute changes on EKG. - admit and monitor on tele - cardiology consult 3. CAD s/p drug-eluting stents (x4) and AICD - Please continue carvedilol, atrovastatin - hold aspirin and brilinta per cardiology - started on plavix per cardiology and GI clearance 4. Electrolyte abnormalities: Hyperkalemia has resolved 5. Chronic conditions: HUGH, HTN, DM, HLD - continue CPAP ( to bring patient's machine from home) - hold antihypertensives in setting of GI bleed - accucheck, insulin SS and levemir 20 units qhs - continue atorvastatin Code: full code DVT prophylaxis: mechanical only in setting of GI bleed Diet: diabetic diet Dispo: discharge home today with close follow up with GI, cardiology and PCP Allergies: Coded Allergies: No Known Allergies (02/19/16) Significant Procedures: PATIENT CARE UNIT CONFIDENTIAL COPY Endoscopy Procedure Medical History: unchanged (see meditech consult) Mental Status: alert/oriented Heart/Lung Eval Prior to Sedation: within normal limits Candidate for Sedation? Yes Procedure Date: 04/15/17 Procedure Type: EGD w/biopsy Artist Relationship Manager: Rikki James MD. ASA Classification: III Indications: Melena, anemia. Instrument: diagnostic gastroscope [place] [facility] [place] Patient's Tolerance: good Complications: none Extent Reached: second part of duodenum Procedure: After getting written informed consent the patient was placed in the left lateral decubitus position with pulse oximetry, cardiac monitoring, and supplemental oxygen given. A bite block was inserted and IV sedation was given until the desired effect was achieved. A high definition upper Olympus endoscope was then inserted into the mouth and advanced to the second portion of the duodenum with little difficulty. Retroflexed views and photodocumentation was obtained. Findings: Esophagus: The upper esophageal mucosa was grossly normal in appearance. Starting in the mid esophagus were several columns of small varices which nearly completely flattened with air insufflation. There were no red well markings or stigmata of recent hemorrhage. The Z line was located approximately 40 cm from the incisors and was normal in appearance. Stomach: Within the antrum there were moderate erythematous changes and there was one very small prepyloric ulcer less than 1 cm in size. Retroflexed views of the fundus showed a very subtle snake skin appearance suggestive of mild portal hypertensive gastropathy. There were no gastric varices or a hiatal hernia appreciated on retroflexed views. Distention and peristalsis of the stomach appeared normal. Random biopsies were obtained from the antrum with cold biopsy forceps and were sent to pathology for further evaluation. Duodenum: The duodenal bulb was mildly erythematous, but there were no ulcers or erosions appreciated. There was bile appreciated throughout the second portion of the duodenum. Impression: 1. Small clean-based prepyloric ulcer status post antral biopsies. 2. Mild portal hypertensive gastropathy. 3. Small grade 1 esophageal varices without stigmata of recent hemorrhage. 4. No active bleeding appreciated to the second portion of the duodenum. Recommendations: 1. Would transfer the patient back to the medical floor and advanced to a full liquid diet. 2. Follow CBCs every 12 hours and transfuse as needed to keep hemoglobin greater than 7 or as per cardiology recommendations. 3. Once he is taking oral intake would change him to a by mouth PPI twice a day. 4. If no objections from cardiology consideration should be given to change his beta clint to a nonselective beta clint such as nadolol or propranolol for variceal bleeding prophylaxis. 5. GI should be notified for signs of overt GI bleeding. 6. Will tentatively plan to pursue a diagnostic colonoscopy in the a.m. and would ask that he be prepped with to do Blacks tablets followed by a gallon of Colyte after a full liquid dinner. Pertinent Lab Results: SERVICE DATE: 04/14/17- EXAM TYPE: CARD - [facility] Age: 61 : 1955 Gender: M Exam Date: 04/14/2017 19:52 Exam Location: [address] [place] [address] Ht (in): 69 Wt (lb): 245 BSA: 2.37 BP: 104 / 51 Ordering Physician: Robyn Borrego MD Referring Physician: Andres Beasley MD, PhD Technologist: Rocio Plaza [facility] Room Number: [id number] Indications: EVALUATION OF ASCENDING AORTA Rhythm: Sinus Technical Quality: fair FINDINGS Left Ventricle Normal left ventricular size with mild left ventricular hypertrophy. Hyperdynamic systolic function with no obvious regional wall motion abnormalities. Diastolic filling pattern is consistent with impaired LV relaxation. The ejection fraction is visually estimated at 80%. Right Ventricle The right ventricle is normal in size and function. Defibrillator lead noted in the right cardiac chambers Right Atrium The right atrium is normal in size. Left Atrium The left atrium is mildly enlarged. The interatrial septum is intact. Mitral Valve The mitral valve demonstrates mild annular calcification with normal function. There is no mitral regurgitation. Aortic Valve Mildly thickened and sclerotic aortic valve without significant stenosis. There is no aortic regurgitation. Tricuspid Valve The tricuspid valve is normal in structure and function. There is trace tricuspid regurgitation. Pulmonary artery systolic pressure is normal. Pulmonic Valve Structurally normal pulmonic valve. There is trace pulmonic regurgitation. Pericardium Normal pericardium without effusion. No pleural effusion. Great Vessels Normal aortic root dimension. The aortic arch and great vessels are well seen and are normal. CONCLUSIONS 1. Hyperdynamic EF of 80% with impaired LV relaxation. 2. Mild left ventricular hypertrophy. 3. Mild left atrial enlargement. 4. Trace tricuspid regurgitation. 5. Trace pulmonic regurgitation. 6. Mild aortic sclerosis without significant stenosis. Andres Beasley M.D. (Electronically Signed) Final Date: 15 April 2017 18:07 MEASUREMENTS (Male / Female) Normal Values 2D ECHO LV Diastolic Diameter PLAX 3.9 cm 4.2 - 5.9 / 3.9 - 5.3 cm LV Systolic Diameter PLAX 1.6 cm 2.1 - 4.0 cm LV Fractional Shortening PLAX 59.0 % 25 - 46 % LV Ejection Fraction 2D Teich 89.1 % IVS Diastolic Thickness 1.5 cm LVPW Diastolic Thickness 1.5 cm LV Relative Wall Thickness 0.8 RV Internal Dim ED PLAX 3.4 cm 1.9 - 3.8 cm LVOT Diameter 2.0 cm Aortic Root Diameter 3.0 cm LA Systolic Diameter LX 4.1 cm 3.0 - 4.0 / 2.7 - 3.8 cm LA Volume 41.0 cm 18 - 58 / 22 - 52 cm Ascending Aorta Diameter 3.1 cm DOPPLER AV Peak Velocity 253.0 cm/s AV Peak Gradient 25.6 mmHg AV Mean Velocity 169.0 cm/s AV Mean Gradient 13.0 mmHg AV Velocity Time Integral 44.2 cm LVOT Peak Velocity 138.0 cm/s LVOT Peak Gradient 7.6 mmHg LVOT Mean Velocity 104.0 cm/s LVOT Mean Gradient 5.0 mmHg LVOT Velocity Time Integral 21.5 cm LVOT Stroke Volume 67.5 cm AV Area Cont Eq vti 1.5 cm AV Area Cont Eq pk 1.7 cm MV Peak Velocity 162.0 cm/s MV Peak Gradient 10.5 mmHg MV Mean Velocity 98.8 cm/s MV Mean Gradient 4.0 mmHg Mitral E Point Velocity 71.1 cm/s Mitral A Point Velocity 108.0 cm/s Mitral E to A Ratio 0.7 MV PHT Velocity 137.0 cm/s MV Deceleration [place] 420.0 cm/s MV Pressure Half Time 97.9 ms MV Area PHT 2.2 cm MV Deceleration Time 261.0 ms TR Peak Velocity 190.0 cm/s TR Peak Gradient 14.4 mmHg Right Atrial Pressure 5.0 mmHg Pulmonary Artery Systolic Pressu 19.4 mmHg Right Ventricular Systolic Press 19.4 mmHg PV Peak Velocity 177.0 cm/s PV Peak Gradient 12.5 mmHg PV Mean Velocity 109.0 cm/s PV Mean Gradient 6.0 mmHg PV Velocity Time Integral 26.7 cm LV E' Lateral Velocity 6.1 cm/s Mitral E to LV E' Lateral Ratio 11.6 LV E' Septal Velocity 4.3 cm/s Mitral E to LV E' Septal Ratio 16.6 SERVICE DATE: 04/14/17 EXAM TYPE: CAT - CT ABD & PELVIS W IV CONTRAST EXAMINATION: CT ABDOMEN AND PELVIS WITH CONTRAST CLINICAL INFORMATION: Gastrointestinal bleed and abdominal pain. COMPARISON: 12/08/2016 TECHNIQUE: Multidetector volumetric imaging was performed of the abdomen and pelvis following IV administration of 95 mL of Optiray 320 intravenous contrast. Sagittal and coronal reformatted images were obtained on the technologist's workstation. DLP: 1005 mGy-cm FINDINGS: LUNG BASES: Dual-chamber cardiac pacemaker/ICD in place. Atherosclerotic calcification of coronary arteries. No pericardial or pleural effusion. No acute findings in the visualized lung bases. LIVER, GALLBLADDER, AND BILIARY TREE: The cirrhotic liver has nodular contour and the left lobe is hypertrophied. No evidence of hepatic mass, intrahepatic bile duct dilatation or other new finding compared to 12/08/2016. Gallbladder is surgically absent. PANCREAS: Unremarkable. SPLEEN: Prominent spleen measures up to 15 cm maximum dimension. ADRENAL GLANDS: Unremarkable. KIDNEYS AND URETERS: Kidneys are normal in size. 1 cm cortical cyst within the interpolar region of the right kidney. Also, there are small, subcentimeter sized cysts in each upper pole. Small peripelvic cysts of the left kidney. No nephrolithiasis or hydronephrosis. Bilateral perinephric edema, unchanged compared to 12/08/2016. BLADDER: Unremarkable. GASTROINTESTINAL TRACT: Stomach is well distended and has normal wall thickness. Bowel loops are normal in caliber. Appendix is normal. No focal bowel wall thickening or pericolonic fat stranding. No evidence of acute inflammation or obstruction along the gastrointestinal tract. No ascites or pneumoperitoneum. ABDOMINAL WALL: Small fat-containing umbilical hernia is unchanged. LYMPH NODES: The largest lymph node in the periportal region is 1.3 cm short axis dimension, unchanged compared to 12/08/2016. No retroperitoneal, iliac or mesenteric lymphadenopathy. Again noted are mildly enlarged lymph nodes of the left inguinal region, unchanged compared to 12/08/2016. VASCULAR: Mild atherosclerotic calcification of the aorta without aneurysm. Inferior vena cava is unremarkable. PELVIC VISCERA: Status post prostatectomy no pelvic mass or free fluid. OSSEOUS STRUCTURES: No acute findings in the degenerated thoracolumbar spine. No aggressive osseous lesions. IMPRESSION: 1. No acute imaging findings within the abdomen or pelvis compared to 12/08/2016. 2. Chronic cirrhosis and splenomegaly. Stable appearance of the reactive periportal lymphadenopathy. No ascites. 3. No acute findings along the gastrointestinal tract. 4. Mildly enlarged left inguinal lymph nodes remain unchanged. SERVICE DATE: 04/14/17 EXAM TYPE: US - US-UNILATERAL VENOUS DOPPLER EXAMINATION: US TRIPLEX LOWER EXTREMITY, LEFT CLINICAL INFORMATION: Pain and swelling COMPARISON: None TECHNIQUE: Color-flow triplex imaging with spectral analysis and compression Doppler were performed on the lower extremity. FINDINGS: Respiratory variation, normal compression and augmented flow are noted throughout the lower extremity. The visualized common femoral vein, superficial femoral vein, profunda femoral vein, popliteal vein and midcalf peroneal and posterior tibial venous segments show no evidence of deep venous thrombosis. There is no Armendariz's cyst. IMPRESSION: There is no sonographic evidence of deep venous thrombosis involving the lower extremity. Disposition Summary Disposition Principal Diagnosis: Symptomatic Anemia 2/2 Suspected GI Bleed Discharge Instructions Medications at Discharge Discharge Medications: Stop taking the following medications: Ticagrelor (Brilinta) 90 MG TABLET ORAL TWICE DAILY Qty = 180 Continue taking these medications: Metformin HCl (Metformin HCl) 1,000 MG TABLET 1 Tablet ORAL TWICE DAILY Qty = 180 Comments: NOT GIVEN IN HOSPTIAL Empagliflozin (Jardiance) 25 MG TABLET 1 Tablet ORAL DAILY Qty = 30 Comments: NOT GIVEN IN HOSPTIAL Insulin Glargine,Hum.rec.anlog (Lantus Solostar) 100 UNIT/ML (3 ML) INSULN.PEN 20 Unit Inject into fatty tissue Every night Qty = 45 Comments: NOT GIVEN IN HOSPTIAL Potassium Chloride (Potassium Chloride) 20 MEQ TAB.ER.PRT 1 Tablet ORAL DAILY Qty = 90 Comments: NOT GIVEN IN HOSPTIAL Mexiletine HCl (Mexiletine HCl) 150 MG CAPSULE 1 Tablet ORAL TWICE DAILY Qty = 60 Comments: Last Taken: 04/17/17 Time: 9AM Melatonin (Melatonin) 3 MG TABLET 2 Tablet ORAL Every night Comments: Last Taken: 04/16/17 Time: 9PM Insulin Lispro (Humalog) 100 UNIT/ML VIAL 5 Unit Inject into fatty tissue THREE TIMES DAILY Comments: NOT GIVEN IN HOSPTIAL Hydrochlorothiazide (Hydrochlorothiazide) 25 MG TABLET 1 Tablet ORAL DAILY Qty = 90 Comments: NOT GIVEN IN HOSPTIAL Hydralazine HCl (Hydralazine HCl) 50 MG TABLET 1 Tablet ORAL THREE TIMES DAILY Qty = 270 Comments: NOT GIVEN IN HOSPTIAL Famotidine (Famotidine) 20 MG TABLET 1 Tablet ORAL TWICE DAILY Comments: NOT GIVEN IN HOSPITAL Carvedilol (Carvedilol) 12.5 MG TABLET 1 Tablet ORAL TWICE DAILY Qty = 180 Comments: Last Taken: 04/17/17 Time: 9AM Atorvastatin Calcium (Atorvastatin Calcium) 80 MG TABLET 1 Tablet ORAL 1800 Qty = 90 Comments: Last Taken: 04/16/17 Time: 5PM Aspirin (Aspirin*) 81 MG TAB.CHEW 1 Tablet ORAL DAILY Comments: NOT GIVEN IN HOSPTIAL Suvorexant (Belsomra) 20 MG TABLET 1 Tablet ORAL Every night Qty = 30 Comments: NOT GIVEN IN HOSPTIAL Magnesium Oxide (Magnesium Oxide) 400 MG TABLET 1 Tablet ORAL TWICE DAILY Qty = 180 Comments: Last Taken: 04/17/17 Time: 9AM Dulaglutide (Trulicity) 1.5 MG/0.5 ML PEN.INJCTR 1 Inj Inject into fatty tissue We Qty = 4 Comments: NOT GIVEN IN HOSPTIAL Valsartan (Valsartan) 320 MG TABLET 1 Tablet ORAL DAILY Qty = 90 Comments: NOT GIVEN IN HOSPTIAL Start taking the following new medications: Clopidogrel Bisulfate (Plavix) 75 MG TABLET 1 Tablet ORAL DAILY Qty = 30 No Refills Instructions: Please take as prescribed. Comments: NOT GIVEN IN HOSPITAL. PT GIVEN PRILOSEC Pantoprazole Sodium (Protonix) 40 MG TABLET.DR 1 Tablet ORAL TWICE DAILY Qty = 60 No Refills Instructions: Please take as prescribed. Comments: NOT GIVEN IN HOSPITAL
[2017-04-17 08:49] VITALS: BP 130/64
[2017-04-17 08:50] VITALS: BP 130/64
--- NOTE | 2017-04-18 11:33 | Proc Note Colonoscopy ---
Colonoscopy Procedure Medical History: unchanged (see meditech consult) Mental Status: alert/oriented Heart/Lung Eval Prior to Sedation: within normal limits Candidate for Sedation? Yes Date of Last Colonoscopy: 2014 Procedure Date: 04/16/17 Procedure Type: colonoscopy w/biopsy Snag Grinder: Rikki James MD ASA Classification: III Indications: Anemia. History of polyps. Instrument (Colonoscope): single channel Meds Received: MAC Patient's Tolerance: good Complications: none Extent Reached: cecum Prep: good Procedure: The risks of a colonoscopy was explained to the patient including, but not limited to, the risks of perforation, bleeding and/or a missed lesion and then written informed consent was obtained. After getting written informed consent the patient was placed in the left lateral decubitus position with pulse oximetry, cardiac monitoring, and supplemental oxygen was given. IV sedation was given until the desired effect was achieved. A rectal exam was performed which was normal. A high definition variable stiffness Olympus colonoscope was then inserted into the anus and advanced to the cecum with little difficulty. Retroflexed views were obtained in both the right colon and rectum and photodocumentation was obtained. Close inspection of the colonic mucosa was performed on insertion and withdrawal of the colonoscope with a withdrawal time that was adequate in length to closely inspect all folds and mena of the colon. Findings: There was a 3 mm sessile polyp in the descending colon, and a 3 mm sessile polyp in the sigmoid colon. Both of the polyps were removed with multiple bites of a cold biopsy forceps and were sent to pathology for further evaluation. The remainder of the visualized colonic mucosa was grossly unremarkable. There were no large polyps, masses, ulcers, diverticula, or significant erythematous changes appreciated. The terminal ileum was not able to be successfully intubated, but limited views of it were normal and there was no blood seen coming from the terminal ileum or anywhere else in the colon. Retroflexed views in the rectum revealed small internal hemorrhoids. Retroflexed views in the right colon did not reveal any polyps. Impression: 1. 2 diminutive polyps status post removal via cold biopsy forceps. 2. Small internal hemorrhoids. 3. No active bleeding or source of anemia appreciated. Recommendations: 1. He should maintain himself on a high-fiber diet. 2. He should follow up the pathology results with me as an outpatient. 3. He should be started on oral iron supplementation. 4. He diet should be advanced as tolerated. 5. He will be set up for an outpatient small bowel PillCam for further evaluation of his anemia and obscure overt GI bleeding. Followup Colonscopy Screen In: pending biopsy result(s) CC: Supriya Pierre DO, MD,Andres Kwong
== END 2017-04-17 10:49 | DRG 377 ==
LOC: ERH 11:17 → 1NO 15:26 → ERHI 15:26 → ENRESERV 16:00 → ENTRNSPT 19:06 → 1NO 19:09 → EDTRNSPTSTS 19:19 → EDTRNSPT 19:19 → 1NO 19:29 → CMPTRNSPT 19:52 → 1NO 04-15 07:18 → ENPENDDIS 04-17 09:38 → 1NO 04-17 10:49
PROVIDERS: Emergency Medicine; Hospitalist; Student in an Organized Health Care Education/Training Program
PROC: 0DB68ZX Excision of Stomach, Via Natural or Artificial Opening Endoscopic, Diagnostic (ICD-10-PCS; principal; 2017-04-15)
PROC: 30233N1 Transfusion of Nonautologous Red Blood Cells into Peripheral Vein, Percutaneous Approach (ICD-10-PCS; 2017-04-17)
DX: K92.2 Gastrointestinal hemorrhage, unspecified (principal); I21.A1 Myocardial infarction type 2; E87.5 Hyperkalemia; D50.0 Iron deficiency anemia secondary to blood loss (chronic); E11.9 Type 2 diabetes mellitus without complications; E78.5 Hyperlipidemia, unspecified; G47.00 Insomnia, unspecified; G47.33 Obstructive sleep apnea (adult) (pediatric); I10 Essential (primary) hypertension; Z95.5 Presence of coronary angioplasty implant and graft; Z95.810 Presence of automatic (implantable) cardiac defibrillator; Z79.84 Long term (current) use of oral hypoglycemic drugs; Z79.82 Long term (current) use of aspirin; Z79.4 Long term (current) use of insulin; K21.9 Gastro-esophageal reflux disease without esophagitis; Z85.46 Personal history of malignant neoplasm of prostate; Z90.49 Acquired absence of other specified parts of digestive tract; Z82.49 Family history of ischemic heart disease and other diseases of the circulatory system; I25.10 Atherosclerotic heart disease of native coronary artery without angina pectoris; I25.2 Old myocardial infarction
CPT/HCPCS: 1NP; 1NSP; 36415; 36592; 74177; 82436; 86920; 88305; 88312; 93005; 93010; 93306; 96360; 96361; 99291; J1815; J3490; J7042; P9016

== ENCOUNTER 2017-09-05 17:33 | Inpatient (IN) | payer OTHER ==
[~2017-09-05] VITALS: Ht 175.3 cm; Wt 104.9 kg
[~2017-09-05 17:33] MED LIST changes: +ATORVASTATIN CA80 M1 PO; +BELSOMRA20 M1 PO; +BRILINTA90 M1 PO; +CARVEDILOL12.5 M1 PO; +FAMOTIDINE20 M1 PO; +HUMALOG100 UNIT/2 SC; +HYDRALAZINE HCL50 M1 PO; +HYDROCHLOROTHIA25 M1 PO; +MAGNESIUM OXID400 M1 PO; +MELATONIN3 M4 PO; +METFORMIN HCL1000 M1 PO; +MEXILETINE HCL150 M1 PO; +PLAVIX75 M1 PO; +POTASSIUM CHLO20 ME2 PO; +PROTONIX40 M3 PO; +VALSARTAN320 M1 PO
--- NOTE | 2017-09-05 18:00 | ED NEURO DEFICIT/STROKE ---
History of Present Illness General Chief Complaint: Neuro Symptoms/ Deficit Stated Complaint: SENT BY DR FOR NEURO SYMPTOMS Source: patient Exam Limitations: no limitations Allergies Coded Allergies: No Known Allergies (02/19/16) Reconcile Medications Aspirin (Aspirin*) 81 MG TAB.CHEW 1 TAB PO DAILY HEART HEALTH (Reported) Atorvastatin Calcium 80 MG TABLET 1 TAB PO 1800 CHOLESTEROL (Reported) Bromocriptine Mesylate (Cycloset) 0.8 MG TABLET 1 TAB PO AD DM (Reported) Clopidogrel Bisulfate (Plavix) 75 MG TABLET 1 TAB PO DAILY HEART Please take as prescribed. Colchicine 0.6 MG TABLET 1 TAB PO BID GOUT (Reported) Empagliflozin (Jardiance) 25 MG TABLET 1 TAB PO DAILY DIABETES (Reported) Famotidine 20 MG TABLET 1 TAB PO BID GI (Reported) Insulin Aspart, Recombinant (Novolog Flexpen) 100 UNIT/ML INSULN.PEN DM ( Reported) Insulin Glargine,Hum.rec.anlog (Basaglar Kwikpen U-100) 100 UNIT/ML (3 ML) INSULN.PEN 20 UNITS SC QAM DM (Reported) Magnesium Oxide 400 MG TABLET 1 TAB PO BID SUPPLEMENT (Reported) Melatonin 3 MG TABLET 2 TAB PO QPM SLEEP (Reported) Metformin HCl 1,000 MG TABLET 1 TAB PO BID DIABETES (Reported) Metoprolol Tartrate 50 MG TABLET 1 TAB PO BID HEART/BP (Reported) Pantoprazole Sodium (Protonix) 40 MG TABLET.DR 1 TAB PO BID ULCER Please take as prescribed. Suvorexant (Belsomra) 20 MG TABLET 1 TAB PO QPM SLEEP (Reported) Valsartan 320 MG TABLET 1 TAB PO DAILY HEART (Reported) Triage Nurses Notes Reviewed? yes HPI: Patient presents for evaluation of slurred speech that was noted by his primary care physician at about 5:00 this afternoon. The patient himself states that he was somewhat aware of the alteration in his speech but cannot state exactly when it began. He contacted his primary care doctor secondary to pain from gout. Primary care physician then asked him to go to the emergency department because of the concern of a stroke given the slurred speech in her over the phone. Patient states he has had no facial droop as confirmed by his . He denies any focal motor weakness. (Brina GARCIA,Jacob Lofton) Vital Signs & Intake/Output Vital Signs & Intake/Output Vital Signs Date Time Temp Pulse Resp B/P B/P Pulse O2 O2 Flow FiO2 Mean Ox Delivery Rate 09/06 0330 95 CPAP 4.0L 09/06 0204 94 Nasal 4.0L Cannula 09/06 0122 171 108/75 09/06 0100 97.9 155 27 108/72 92 Nasal 3.0L Cannula 09/06 0029 149 18 120/67 95 Nasal 2.0L Cannula 09/06 0023 144 26 120/67 09/05 2238 99 18 128/62 96 Nasal 2.0L Cannula 09/05 1943 96 20 121/65 Nasal 2.0L Cannula 09/05 1836 Room Air 09/05 1835 96.0 104 22 126/56 90 Room Air ED Intake and Output 09/06 0000 09/05 1200 Intake Total 0 Output Total Balance 0 Intake, Oral 0 Patient 250 lb Weight Weight Estimated Measurement Method (Jacob Gupta DO) Past History Travel History Traveled to [place] past 21 day No Medical History Any Pertinent Medical History? 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 No (Brina GARCIA,Jacob Lofton) Review of Systems Review of Systems Constitutional: Reports: no symptoms. EENTM: Reports: no symptoms. Respiratory: Reports: no symptoms. Cardiovascular: Reports: no symptoms. GI: Reports: no symptoms. Genitourinary: Reports: no symptoms. Musculoskeletal: Reports: no symptoms. Skin: Reports: no symptoms. Neurological/Psychological: Reports: see HPI. Hematologic/Endocrine: Reports: no symptoms. Immunologic/Allergic: Reports: no symptoms. All Other Systems: Reviewed and Negative (Brina GARCIA,Jacob Lofton) Physical Exam Physical Exam General Appearance: SEE BELOW Cranial Nerves: SEE BELOW Comments: Gen.: Well-nourished, well-developed, no acute respiratory distress. Head: Normocephalic, atraumatic. Eyes: Normal inspection bilaterally, PERRLA, EOMI Ears: Normal inspection bilaterally Nose: Normal inspection Throat/mouth : Moist mucosa Neck: Supple, full range of motion, no goiter, no carotid bruits, equal carotid pulses Heart: Regular rate and rhythm, no murmurs rubs or gallops Lungs: Clear to auscultation bilaterally with normal air entry Chest: Nontender Back: Normal range of motion Abdomen: Nondistended, normal bowel sounds Extremities: Normal range of motion grossly, equal radial pulses, no cyanosis clubbing or edema, equal hand grasp, no pronator drift, no dysmetria Neurologic: Cranial nerves: Left facial droop and mildly slurred speech and without apparent aphasia, gait is stable, no dysmetria Skin: warm and dry Psychiatric: Calm, cooperative, no apparent delusions or hallucinations Core Measures CVA/TIA Diagnosis: Yes NIH Stroke Scale NIH Stroke Scale Response Value Level of Consciousness alert 0 LOC Questions answers both correctly 0 LOC Commands obeys both correctly 0 Best Gaze normal 0 Visual Lemon no visual loss 0 Facial Paresis minor 1 Motor Arm - Left no drift 0 Motor Arm - Right no drift 0 Motor Leg - Left no drift 0 Motor Leg - Right no drift 0 Limb Ataxia no ataxia 0 Sensory normal 0 Best Language no aphasia 0 Dysarthria mild/mod slurring words 1 Extinction and Inattention no neglect 0 Total 2 Date Last Known Well: 09/05/17 Time Last Known Well: 0500 tPA Risk/Benefit discussion I have discussed the risks, benefits, and alternatives of Alteplase treatment including: - If given promptly, can resolve or have major improvement in stroke symptoms. - Bleeding (hemorrhage) is the most common risk that can occur. 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 - Alternative treatments with proven benefit for patients with stroke include aspirin and care in a specialized unit where staff members pay careful attention to a variety of basic aspects of care. tPA given? No Reason tPA not given Medical Contraindication (beyond time window) Swallow Evaluation Fail Swallow eval date 09/05/17 Swallow eval time 193 (Brina GARCIA,Jacob Lofton) Core Measures Sepsis Present: No Sepsis Focused Exam Completed? No (Jacob Gupta DO) Progress Differential Diagnosis: Gonsalves's Palsy, hypoglycemia, intracranial Hem., intracranial mass/tumor, stroke Initial ED EKG: NSR, no ST T wave changes Comments: 09/05/2017 5:57:30 PM patient's CAT scan is unremarkable according to radiology. 09/05/2017 6:32:55 PM patient's case discussed with Dr. Lynne who agrees with adding Plavix to the patient's current antiplatelet regimen. 09/05/2017 7:02:[address] Whiteside, radiologist, no apparent lesions on CTA of head and neck. 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 (Brina AGRCIA,Jacob Lofton) Plan of Care: Orders Procedure Date/time Status Nothing by Mouth 09/06 B Active TROPONIN LEVEL 09/06 0600 Active LIPID PANEL 09/06 0600 Active ICU LAB BUNDLE 09/06 0600 Active CBC WITHOUT DIFFERENTIAL 09/06 0600 Active EKG 09/06 0600 Active ECHOCARDIOGRAM 09/06 0600 Active THERAPIST ORDERS 09/06 0522 Complete Pathway - chart 09/06 0340 Active Weight 09/06 0221 Active VTE Mechanical Prophylaxis 09/06 0221 Active Vital Signs 09/06 0221 Active Turn and Reposition 09/06 0221 Active Teach/Educate 09/06 0221 Active Skin Integrity Protocol 09/06 0221 Active Skin/Pressure Ulcer Assess (Sk 09/06 0221 Active Precautions 09/06 0221 Active Pain Treatment and Response 09/06 0221 Active Nutritional Intake, Monitor 09/06 0221 Active Isolation 09/06 0221 Active Patient Care Conference 09/06 0221 Active Activity/Ambulation 09/06 0221 Active CONTIN. POSITIVE AIRWAY PRESS 09/06 0209 Complete THERAPIST ORDERS 09/06 0207 Complete CULTURE,URINE 09/06 0159 Active URINALYSIS 09/06 0159 Complete Pathway - chart 09/06 0133 Active VRE ACTIVE SURVIELLANCE 09/06 0133 Active ACTIVE SURVEILLANCE NARES 09/06 0133 Active Code Status 09/06 0133 Active TROPONIN LEVEL 09/06 0049 Complete Patient Data 09/06 0020 Active XRY-PORTABLE CHEST XRAY 09/06 0018 Active Add-on Test (ER Only) 09/06 0018 Active EKG 09/06 0016 Active SWALLOW EVALUATION 09/06 UNK Active TRC EVALUATION (GEN) 09/06 UNK Active OXYGEN SETUP (GEN) 09/06 UNK Complete ARTERIAL BLOOD GAS (GEN) 09/06 UNK Complete Transfer patient to 09/06 UNK Active House Staff 09/06 UNK Active Lab Add-on Test 09/06 UNK Active VTE Mechanical Prophylaxis 09/06 UNK Active Vital Signs 09/06 UNK Complete Telemetry/[employer] 09/06 UNK Active Restraint- Medical 09/06 UNK Active NIH Stroke Scale 09/06 UNK Active Barber, Insertion/Removal/Asses 09/06 UNK Active Elevate 09/06 UNK Active Activity/Ambulation 09/06 UNK Active Patient Data 09/05 2255 Active Admit to inpatient 09/05 2225 Active Vital Signs 09/05 2225 Active Code Status 09/05 2225 Complete Intake & Output 09/05 1833 Active TROPONIN LEVEL 09/05 1810 Complete D-DIMER 09/05 1810 Complete PARTIAL THROMBOPLASTIN TIME 09/05 1800 Complete PROTHROMBIN TIME 09/05 1800 Complete COMPREHENSIVE METABOLIC PANEL 09/05 1800 Complete CBC WITHOUT DIFFERENTIAL 09/05 1800 Complete EKG 09/05 1800 Active Current Medications Sig/Jasvir Start time Last Medication Dose Stop Time Status Admin Aspirin Buffered 81 MG DAILY 09/06 0900 AC (Ecotrin) Enoxaparin Sodium 40 MG DAILY 09/06 0900 AC (Lovenox) Acetaminophen 650 MG Q6P PRN 09/06 0345 AC (Tylenol) Acetaminophen 1,000 MG Q6P PRN 09/06 0345 AC 09/06 (Ofirmev) 0359 Diltiazem HCl 125 MG Q24H 09/06 0230 AC 09/06 (Cardizem DRIP) 0329 Dextrose/Water 100 ML (Dextrose 5%) Laboratory Tests 09/06/17 0610: Sodium Pending, Potassium Pending, Chloride Pending, Carbon Dioxide Pending, Anion Gap Pending, BUN Pending, Creatinine Pending, Glucose Pending, Calcium Pending, Phosphorus Pending, Magnesium Pending, Total Bilirubin Pending, AST Pending, ALT Pending, Albumin Pending, Triglycerides Pending, Cholesterol Pending, LDL Cholesterol, Calc Pending, HDL Cholesterol Pending, Cholesterol/HDL Ratio Pending, CBC w Diff Pending, WBC Pending, RBC Pending, Hgb Pending, Hct Pending, MCV Pending, MCH Pending, MCHC Pending, RDW Pending, Plt Count Pending, MPV Pending 09/06/17 0500: pH 7.34 L, pCO2 32 L, pO2 47 *L, HCO3 17 L, ABG O2 Sat (Measured) 79.0 L, P- 50 (Temp Corrected) Y, Carboxyhemoglobin 0.7 L, O2 Concentration % 4 LPM, Temperature 97.2, O2 Delivery Method N/C, Phlebotomy Draw Site LEFT RADIAL 09/06/17 0200: Urinalysis HEAVY H, Urine Color BLDY H, Urine Clarity TURBD H, Urine pH 5.5, Ur Specific Chandler 1.020, Urine Protein 100 H, Urine Ketones NEG, Urine Nitrite POS H, Urine Bilirubin NEG, Urine Urobilinogen 1.0, Ur Leukocyte Esterase NEG, Ur Microscopic SEDIMENT EXAMINED, Urine RBC PACKD H, Urine WBC 10 -15 H, Ur Epithelial Cells FEW, Urine Bacteria MOD H, Granular Casts 5-10 H, Urine Hemoglobin LARGE H, Urine Glucose 250 H 09/06/17 0129: Troponin I 0.10 09/05/17 1810: Anion Gap 22 H, Estimated GFR 29 L, BUN/Creatinine Ratio 25.2 H, Glucose 173 H, Calcium 8.8, Total Bilirubin 4.3 H, AST 193 H, ALT 105 H, Alkaline Phosphatase 188 H, Troponin I 0.09, Total Protein 6.5, Albumin 3.1 L, Globulin 3.4, Albumin/Globulin Ratio 0.9 L, PT 15.7 H, INR 1.44 H, APTT 35, D-Dimer High Sensitivty 6199 H, CBC w Diff MAN DIFF ORDERED, RBC 4.76, MCV 81.0, MCH 26.5 L, MCHC 32.7 L, RDW 19.2 H, MPV 11.1 H, Gran % 93.2 H, Lymphocytes % 1.7 L, Monocytes % 5.0, Eosinophils % 0.1, Basophils % 0, Absolute Granulocytes 11.9 H, Segmented Neutrophils 78 H, Band Neutrophils 21 H, Absolute Lymphocytes 0.2 L, Lymphocytes 1 L, Absolute Monocytes 0.6, Absolute Eosinophils 0, Absolute Basophils 0, Platelet Estimate VERIFIED BY SMEAR, Anisocytosis 1+, Fld Total RBCs Counted 100 Microbiology 09/06 199 URINE ROUT: Urine Culture - RECD 09/06 129 UPPER RESP: Surveillance Culture - RECD 09/06 129 GI: Surveillance Culture - RECD (Jacob Gupta DO) Departure Departure Disposition: STILL A PATIENT Condition: Stable Referrals: Margot Pierre DO (PCP/Family) Departure Forms: Customer Survey General Discharge Information (Brina GARCIA,Jacob Lofton) Departure Clinical Impression Primary Impression: CVA (cerebral vascular accident) Qualifiers: CVA mechanism: unspecified Qualified Code: I63.9 - Cerebral infarction, unspecified Secondary Impressions: DEMETRIO (acute kidney injury), New onset a-fib Comments 09/06/2017 12:30 AM The patient was about to be transferred to telemetry. His heart rate was 180. He complained of shortness of breath. A stat 12-lead EKG was done which showed rapid atrial fibrillation. He was given 5 mg of Lopressor. He was also given 20 mg of IV Lasix. The MOD and admitting attending were notified. He is been upgraded to the ICU. Admission Note Spoke With: Jose Teixeira MD Documentation of Exam: Documentation of any treatments & extenuating circumstances including Concerns Regarding Discharge (functional status, medication knowledge or non-compliance, living conditions, etc.) that warrant an admission rather than observation: [The patient needs admission for IV fluids, telemetry monitoring, neurology consultation, nephrology consultation.] (Jacob Gupta DO)
--- NOTE | 2017-09-05 18:01 | CT SCAN REPORT ---
EXAMINATION: CT HEAD WITHOUT CONTRAST CLINICAL INFORMATION: Slurred speech. Presumptive diagnosis: CVA COMPARISON: None TECHNIQUE: Contiguous axial imaging was performed from the skull base to vertex without intravenous administration of contrast. DLP: 615 mGy-cm FINDINGS: There is no evidence of acute intracranial hemorrhage or territorial infarction. No abnormal mass effect or midline shift is seen. [place] to white matter differentiation is well preserved. No extra-axial fluid collections are identified. The ventricles are normal in size. There is no abnormal attenuation within the brain parenchyma. The osseous structures and soft tissues are normal. The mastoid air cells and visualized portions of the paranasal sinuses are well aerated. IMPRESSION: No acute intracranial pathology. This critical result was discussed by telephone with Dr. Gonsalves at 5:56 PM on 09/05/2017 .
[2017-09-05 18:39] LABS: ABSOLUTE BASOPHIL COUNT 0 /CUMM (0.0-0.2); ABSOLUTE EOSINOPHIL COUNT 0 /CUMM (0.0-0.7); ABSOLUTE GRANULOCYTE CT 11.9 /CUMM (1.4-6.5); ABSOLUTE LYMPH COUNT 0.2 /CUMM (1.2-3.4); ABSOLUTE MONOCYTE COUNT 0.6 /CUMM (0.10-0.60); BASOPHIL % 0 % (0.0-2.0); EOSINOPHIL % 0.1 % (0-5); HEMATOCRIT 38.5 % (42-52); MEAN CORPUSCULAR HGB 26.5 PG (27.0-31.0); MEAN CORPUSCULAR HGB CONC 32.7 G/DL (33.0-37.0); RBC DISTRIBUTION WIDTH 19.2 % (11.5-14.5); RED BLOOD CELL CT 4.76 /CUMM (4.70-6.10); WHITE BLOOD CELL COUNT 12.8 /CUMM (4.8-10.8)
[2017-09-05 18:46] LABS: PT 15.7 SEC (9.4-12.5); PTT 35 SEC (25-37)
[2017-09-05 18:50] LABS: GRANULOCYTE % 93.2 % (42.2-75.2)
--- NOTE | 2017-09-05 19:10 | CT SCAN REPORT ---
CT ANGIOGRAM NECK WITH CONTRAST CT ANGIOGRAM BRAIN WITH CONTRAST CLINICAL INFORMATION: Slurred speech/CVA. COMPARISON: Head CT performed earlier the same day. TECHNIQUE: Test bolus sequences followed by intravenous administration 95 mL of Optiray 320. Helical imaging was performed in the axial plane from the thoracic inlet to the skull vertex. Delayed postcontrast imaging of the head was also performed. The data was processed at the medical technologist clinical workstation for generation of MIP sequences. Angled MIPs and volume rendered reformatted images were also generated at an offline 3D workstation. Stenoses are assessed in accordance with NASCET criteria unless otherwise indicated. FINDINGS: BRAIN: There is no pathologic enhancement intracranially. There is no intracranial hemorrhage, hydrocephalus, extra-axial surface collection, midline shift, or other herniation pattern. Cel[place] to white matter differentiation is diffusely maintained without evidence of an evolved acute territorial infarct. The basilar cisterns are preserved. No significant soft tissue abnormality. No acute osseous abnormality. The paranasal sinuses and the mastoid air cells are well-aerated. CERVICAL SOFT TISSUES AND LUNG APICES: No significant soft tissue findings within the neck. Imaged upper lungs are clear. There is cervical spondylosis. Median sternotomy wires. NECK CTA: There is a classic 3 vessel configuration of the aortic arch. Proximal arch vessels are non-stenotic. The vertebral arteries are codominant. No significant ostial stenosis is visualized on either side. Both vertebral arteries are widely patent throughout their extracranial cervical course. Both common carotid arteries are normal in caliber bilaterally. There is calcific atherosclerotic disease involving the carotid bifurcations bilaterally without significant stenosis involving the internal carotid arteries bilaterally. BRAIN CTA: Atherosclerotic calcification throughout the carotid siphons bilaterally without significant stenosis. No focal flow-limiting stenosis, discrete proximal large artery occlusion, or saccular intradural aneurysm is identified. Timing of the contrast bolus allows assessment of the major dural venous sinuses, which all opacify normally. IMPRESSION: - No acute intracranial findings. - Calcific atherosclerotic disease without significant arterial stenosis and without acute arterial occlusion within the head or neck.
[2017-09-05] MEDS ORDERED: COLCHICINE0.6 M2 PO (19:44)
[2017-09-05] MEDS ORDERED: METOPROLOL TART50 M1 PO (19:47)
[2017-09-05] MEDS ORDERED: NOVOLOG FL100 UNIT/1 SC (19:47)
[2017-09-05] MEDS ORDERED: BASAGLAR K100 UNIT/1 SC (19:48)
[2017-09-05] MEDS ORDERED: CYCLOSET PO (19:49)
[2017-09-05 20:12] LABS: MEAN PLATELET VOLUME 11.1 FL (7.4-10.4); PLATELET COUNT 73 /CUMM (130-400)
--- NOTE | 2017-09-05 20:37 | RADIOLOGY REPORT ---
EXAMINATION: XR PORTABLE CHEST CLINICAL INFORMATION: Status post CVA COMPARISON: 08/15/2017 TECHNIQUE: Portable frontal view of the chest was obtained. FINDINGS: Dual-lead AICD is in place with leads in the right ventricle and right atrium. CABG markers and sternal wires overlie the chest. Heart is enlarged. There is pulmonary venous congestion. Lung volumes are borderline low with mild bibasilar atelectasis. No consolidation, pneumothorax, or pleural effusion. Osseous structures are unremarkable. IMPRESSION: Cardiomegaly with pulmonary venous congestion. No pulmonary edema. Mild bibasilar atelectasis in the lung volumes.
--- NOTE | 2017-09-05 22:53 | History & Physical ---
Vik Mayfield 09/05/17 5381: General Information and HPI MD Statement: I have seen and personally examined HOUSTON ROONEY and documented this H&P. The patient is a 61 year old M who presented with a patient stated chief complaint of [slurred speech and difficulty swallowing stated from last evening] . Source of Information: patient, family Exam Limitations: no limitations History of Present Illness: The patient is a 65 yo man with history of DM, WI, CABG, HTN, and HLP who is here for evaluation of slurred speech and difficulty swallowing that was started from last evening. He is accompanied by his . He was visited by his test deck supervisor yesterday due to pain in his right foot due to gout. When he calls him back this afternoon his test deck supervisor notices the change in his speech and recommends him to come to ER. He also had SOB started from last evening so he calls his metal model maker, he also refers him to the ER. Now they recall that his slurred speech and difficulty swallowing started from last night. He also noticed tingling and numbness in his right hand. He is not sure about his right lower extremity because he has had pain in RLE due to gout. He avoided drinking due to difficulty swallowing. His also noticed his left sided facial droop. He reports no change in hearing or vision (He has a previous history of hearing problem in left ear). He mentions orthopnea started from this morning. He had nausea yesterday but no vomiting. He has recently started colchicine for his gout and reports diarrhea. He does not have any chest pain but mentions tightness. He also has cramping lower abdominal pain. The patient had AFib while he was in ER so he was transferred to ICU. PMHx: HTN, HLP, Gout, WI, CABG, HUGH, GERD, DM, prostate cancer, GIB, ICD, pacemaker PSHx: Cholecystectomy, prostectomy, Rt great toe wound debriment, Rt groin abcess drainage Imaging: CXR: Cardiomegaly with pulmonary venous congestion. No pulmonary edema. Mild bibasilar atelectasis in the lung volumes. Head CTA: No acute intracarnial findings, Calcific atherosclerotic disease without significant arterial stenosis and without acute arterial occlusion within the head or neck. Allergies/Medications Allergies: Coded Allergies: No Known Allergies (12/26/16) Compliance With Home Meds: GOOD Past History Travel History Traveled to [place] past 21 day No Medical History Neurological: NONE EENT: NONE, hearing loss Cardiovascular: hypertension, hyperlipidemia, myocardial infarction, AICD Respiratory: obstructive sleep apnea Gastrointestinal: GERD Hepatic: NONE Renal: NONE Musculoskeletal: NONE Psychiatric: NONE Endocrine: diabetes Blood Disorders: NONE Cancer(s): prostate cancer BUNDLE HELPER/Reproductive: NONE History of MRSA: No History of VRE: No History of CDIFF: No Influenza Vaccine: 10/23/16 Surgical History Surgical History: cholecystectomy, prostatectomy, RIGHT GREAT TOE WOUND DEBRIDEMENT RIGHT GROIN ABSCESS/DRAIN Past Family/Social History Family History Relations & Conditions if any FATHER Coronary artery bypass surgery Review of Systems Review of Systems Constitutional: Reports: no symptoms, see HPI. EENTM: Reports: see HPI. Cardiovascular: Reports: see HPI. Respiratory: Reports: short of breath. GI: Reports: see HPI. Genitourinary: Reports: no symptoms. Musculoskeletal: Reports: see HPI, gout, joint pain, joint swelling. Skin: Reports: see HPI. Neurological/Psychological: Reports: see HPI. Hematologic/Endocrine: Reports: see HPI. Exam & Diagnostic Data Last 24 Hrs of Vital Signs/I&O Vital Signs Date Time Temp Pulse Resp B/P B/P Pulse O2 O2 Flow FiO2 Mean Ox Delivery Rate 09/06 0204 94 Nasal 4.0L Cannula 09/06 0122 171 108/75 09/06 0029 149 18 120/67 95 Nasal 2.0L Cannula 09/06 0023 144 26 120/67 09/05 2238 99 18 128/62 96 Nasal 2.0L Cannula 09/05 1943 96 20 121/65 Nasal 2.0L Cannula 09/05 1836 Room Air 09/05 1835 96.0 104 22 126/56 90 Room Air Intake & Output 09/06 0800 09/06 0000 09/05 1600 Intake Total 0 Output Total Balance 0 Intake, Oral 0 Patient 250 lb Weight Weight Estimated Measurement Method Physical Exam General Appearance Alert, Oriented X3, Cooperative Skin No Rashes, No Significant Lesion Skin Temp/Moisture Exam: Warm/Dry Sepsis Skin Exam (color): Normal for Ethnicity HEENT Atraumatic, PERRLA, EOMI Cardiovascular Regular Rate, Normal S1, Normal S2 Lungs Clear to Auscultation (basal crackles) Abdomen Normal Bowel Sounds, No Tenderness (distended) Neurological Strength at 5/5 X4 Ext, Normal Tone, Sensation Intact, Cranial Nerves 3-12 NL Extremities No Clubbing, No Cyanosis, No Edema, Normal Pulses, No Tenderness/ Swelling (tenderness in right foot) Vascular Normal Pulses, Pulses Symmetrical Sepsis Peripheral Pulse Location: Radial Sepsis Peripheral Pulse Exam: Normal Sepsis Cap Refill Exam: <2 Sec Body Front and Back (Adult) 1) pitting edema tenderness Last 24 Hrs of Labs/Shady: Laboratory Tests 09/06/17 0200: Urine Color Pending, Urine Clarity Pending, Urine pH Pending, Ur Specific [place] Pending, Urine Protein Pending, Urine Ketones Pending, Urine Nitrite Pending, Urine Bilirubin Pending, Urine Urobilinogen Pending, Ur Leukocyte Esterase Pending, Ur Microscopic Pending, Urine Hemoglobin Pending, Urine Glucose Pending 09/06/17 0129: Troponin I Pending 09/05/17 1810: Anion Gap 22 H, Estimated GFR 29 L, BUN/Creatinine Ratio 25.2 H, Glucose 173 H, Calcium 8.8, Total Bilirubin 4.3 H, AST 193 H, ALT 105 H, Alkaline Phosphatase 188 H, Troponin I 0.09, Total Protein 6.5, Albumin 3.1 L, Globulin 3.4, Albumin/Globulin Ratio 0.9 L, PT 15.7 H, INR 1.44 H, APTT 35, D-Dimer High Sensitivty 6199 H, CBC w Diff MAN DIFF ORDERED, RBC 4.76, MCV 81.0, MCH 26.5 L, MCHC 32.7 L, RDW 19.2 H, MPV 11.1 H, Gran % 93.2 H, Lymphocytes % 1.7 L, Monocytes % 5.0, Eosinophils % 0.1, Basophils % 0, Absolute Granulocytes 11.9 H, Segmented Neutrophils 78 H, Band Neutrophils 21 H, Absolute Lymphocytes 0.2 L, Lymphocytes 1 L, Absolute Monocytes 0.6, Absolute Eosinophils 0, Absolute Basophils 0, Platelet Estimate VERIFIED BY SMEAR, Anisocytosis 1+, Fld Total RBCs Counted 100 Microbiology 09/06 199 URINE ROUT: Urine Culture - RECD 09/06 129 UPPER RESP: Surveillance Culture - RECD 09/06 129 GI: Surveillance Culture - RECD Diagnostic Data CXR Results Cardiomegaly with pulmonary venous congestion. No pulmonary edema. Mild bibasilar atelectasis in the lung volumes. Other Results Head CTA: - No acute intracranial findings. - Calcific atherosclerotic disease without significant arterial stenosis and without acute arterial occlusion within the head or neck. Assessment/Plan Assessment: Mr. Rooney is a 62 year old man who is here with sudden onset slurred speech and difficulty swallowing and also tingling and numbness in his right hand. These signs and symptoms are consistent with CVA. Head CTA has shown no acute findings which mean that the event is peobably ischemic not hemorrhagic. He is NPO, swallow study will be done next morning. He also has probable lung effusion which is contributing to his SOB. so he will receive Furosemide to induce diursis. He had AFib while he was in ER, so he is started on diltiazem drip to control his heart rate reduce the side effects of AFib. He has been on anticoagulation (Aspirin and Clopedigrol). He also has elevated AST, ALT, Alk Ph, and Bili which makes is possible to be induce by congestion due to heart failure, so it might be prudent to do an ECHO and relevant labs for hepatitis for him (with the long history of WI and HTN and DM). He also has increased creatinine (2.3) and BUN (58), it could be partly due to dehydration, partly due to NSAIDS for gout. We should monitor his renal function during his stay. His renal function was normal in Mar 2017. Metformin should be stopped due to impaired renal function to avoid metabolic acidosis. As Ranked By This Provider Problem List: 1. CVA (cerebral vascular accident) Qualifiers CVA mechanism: unspecified Qualified Code: I63.9 - Cerebral infarction, unspecified 2. New onset a-fib Core Measures/Misc (11/10) Acute Coronary Syndrome ACS Diagnosis: No Congestive Heart Failure Congestive Heart Failure Diagnosis No Cerebrovascular Accident CVA/TIA Diagnosis: Yes NIH Stroke Scale: Total 3 Date Last Known Well: 09/05/17 Time Last Known Well: 0500 Symptom Start Date: 09/05/17 tPA Risk/Benefit discussion I have discussed the risks, benefits, and alternatives of Alteplase treatment including: - If given promptly, can resolve or have major improvement in stroke symptoms. - Bleeding (hemorrhage) is the most common risk that can occur. - Bleeding may occur into the brain and cause~intermediate serious disability~ including - this is rare, affecting about 1% of patients. - Alternative treatments with proven benefit for patients with stroke include aspirin and care in a specialized unit where staff members pay careful attention to a variety of basic aspects of care. tPA given? No Current/Past Hx AFib/AFlutter Yes No Anticoagulant d/t Medical Contraindication VTE (View Protocol) VTE Risk Factors Age>40 No Mechanical VTE Prophylaxis d/t N/A MechProphylax Ordered No VTE Pharm Prophylaxis d/t NA PharmProphylax ordered Sepsis (View protocol) Sepsis Present: No If YES complete Sepsis Event Note If YES complete Sepsis Event Note Lluvia GARCIACaledonia 09/06/17 0426: General Information and HPI MD Statement: I have seen and personally examined ROONEYHOUSTON and documented this H&P. The patient is a 61 year old M who presented with a patient stated chief complaint of []. Source of Information: patient Allergies/Medications Home Med list Aspirin (Aspirin*) 81 MG TAB.CHEW 1 TAB PO DAILY HEART HEALTH (Reported) Atorvastatin Calcium 80 MG TABLET 1 TAB PO 1800 CHOLESTEROL (Reported) Bromocriptine Mesylate (Cycloset) 0.8 MG TABLET 1 TAB PO AD DM (Reported) Clopidogrel Bisulfate (Plavix) 75 MG TABLET 1 TAB PO DAILY HEART Please take as prescribed. Colchicine 0.6 MG TABLET 1 TAB PO BID GOUT (Reported) Empagliflozin (Jardiance) 25 MG TABLET 1 TAB PO DAILY DIABETES (Reported) Famotidine 20 MG TABLET 1 TAB PO BID GI (Reported) Insulin Aspart, Recombinant (Novolog Flexpen) 100 UNIT/ML INSULN.PEN DM ( Reported) Insulin Glargine,Hum.rec.anlog (Basaglar Kwikpen U-100) 100 UNIT/ML (3 ML) INSULN.PEN 20 UNITS SC QAM DM (Reported) Magnesium Oxide 400 MG TABLET 1 TAB PO BID SUPPLEMENT (Reported) Melatonin 3 MG TABLET 2 TAB PO QPM SLEEP (Reported) Metformin HCl 1,000 MG TABLET 1 TAB PO BID DIABETES (Reported) Metoprolol Tartrate 50 MG TABLET 1 TAB PO BID HEART/BP (Reported) Pantoprazole Sodium (Protonix) 40 MG TABLET.DR 1 TAB PO BID ULCER Please take as prescribed. Suvorexant (Belsomra) 20 MG TABLET 1 TAB PO QPM SLEEP (Reported) Valsartan 320 MG TABLET 1 TAB PO DAILY HEART (Reported) Past History Medical History EENT: hearing loss Cardiovascular: hypertension, hyperlipidemia, myocardial infarction Respiratory: obstructive sleep apnea Gastrointestinal: GERD Endocrine: diabetes Surgical History Surgical History: cholecystectomy, RIGHT GREAT TOE WOUND DEBRIDEMENT RIGHT GROIN ABSCESS/DRAIN Past Family/Social History Psychosocial History Smoking Status: Never Smoked ETOH Use: occasional use Review of Systems Review of Systems Constitutional: Reports: see HPI. Exam & Diagnostic Data Last 24 Hrs of Vital Signs/I&O Vital Signs Date Time Temp Pulse Resp B/P B/P Pulse O2 O2 Flow FiO2 Mean Ox Delivery Rate 09/06 0330 95 CPAP 4.0L 09/06 0204 94 Nasal 4.0L Cannula 09/06 0122 171 108/75 09/06 0100 97.9 155 27 108/72 92 Nasal 3.0L Cannula 09/06 0029 149 18 120/67 95 Nasal 2.0L Cannula 09/06 0023 144 26 120/67 09/05 2238 99 18 128/62 96 Nasal 2.0L Cannula 09/05 1943 96 20 121/65 Nasal 2.0L Cannula 09/05 1836 Room Air 09/05 1835 96.0 104 22 126/56 90 Room Air Intake & Output 09/06 0800 09/06 0000 09/05 1600 Intake Total 0 Output Total Balance 0 Intake, Oral 0 Patient 253 lb 250 lb Weight Weight Bed scale Estimated Measurement Method Physical Exam General Appearance Alert, Oriented X3, Cooperative HEENT Atraumatic, PERRLA, EOMI Neck Supple Cardiovascular Regular Rate, Normal S1, Normal S2 Lungs Bilateral crakles Abdomen Normal Bowel Sounds Extremities No Clubbing, No Cyanosis, No Edema Last 24 Hrs of Labs/Shady: Laboratory Tests 09/06/17 0200: Urinalysis HEAVY H, Urine Color BLDY H, Urine Clarity TURBD H, Urine pH 5.5, Ur Specific [place] 1.020, Urine Protein 100 H, Urine Ketones NEG, Urine Nitrite POS H, Urine Bilirubin NEG, Urine Urobilinogen 1.0, Ur Leukocyte Esterase NEG, Ur Microscopic SEDIMENT EXAMINED, Urine RBC PACKD H, Urine WBC 10 -15 H, Ur Epithelial Cells FEW, Urine Bacteria MOD H, Granular Casts 5-10 H, Urine Hemoglobin LARGE H, Urine Glucose 250 H 09/06/17 0129: Troponin I 0.10 09/05/17 1810: Anion Gap 22 H, Estimated GFR 29 L, BUN/Creatinine Ratio 25.2 H, Glucose 173 H, Calcium 8.8, Total Bilirubin 4.3 H, AST 193 H, ALT 105 H, Alkaline Phosphatase 188 H, Troponin I 0.09, Total Protein 6.5, Albumin 3.1 L, Globulin 3.4, Albumin/Globulin Ratio 0.9 L, PT 15.7 H, INR 1.44 H, APTT 35, D-Dimer High Sensitivty 6199 H, CBC w Diff MAN DIFF ORDERED, RBC 4.76, MCV 81.0, MCH 26.5 L, MCHC 32.7 L, RDW 19.2 H, MPV 11.1 H, Gran % 93.2 H, Lymphocytes % 1.7 L, Monocytes % 5.0, Eosinophils % 0.1, Basophils % 0, Absolute Granulocytes 11.9 H, Segmented Neutrophils 78 H, Band Neutrophils 21 H, Absolute Lymphocytes 0.2 L, Lymphocytes 1 L, Absolute Monocytes 0.6, Absolute Eosinophils 0, Absolute Basophils 0, Platelet Estimate VERIFIED BY SMEAR, Anisocytosis 1+, Fld Total RBCs Counted 100 Microbiology 09/06 0200 URINE ROUT: Urine Culture - RECD 09/06 129 UPPER RESP: Surveillance Culture - RECD 09/06 129 GI: Surveillance Culture - RECD Core Measures/Misc (11/10) Sepsis (View protocol) If YES complete Sepsis Event Note If YES complete Sepsis Event Note Attending MD Review Statement Attending Statement Attending MD Statement: examined this patient, discuss w/resident/PA/AUTOMOBILE ENGINE ASSEMBLER, amended to note Attending Assessment/Plan: This patient is a 65 year old male with significant past medical history for DM, WI, CABG, HTN, and HLP who was evaluated in the ED for slurred speech and difficulty swallowing that started last evening. He saw his test deck supervisor yesterday due to pain in his right foot due to gout. When he called him back the test deck supervisor noticed change in his speech and recommended an ER evaluation. He was evaluated in the ED where he was noted to have a non-hemorrhagic CVA. While being transferred to telemetry he was noted to have significant shortness of breath likely secondary to fluid overload and A. fib. Patient was started on a diltiazem drip and transferred to the intensive care unit. He does not have a history of CHF and his findings are consistent. Currently being treated for rapid A. fib, pulmonary congestion/CHF, acute kidney injury as well as the underlying stroke. Hitesh GARCIA,Yenni 09/06/17 0548: Core Measures/Misc (11/10) Sepsis (View protocol) If YES complete Sepsis Event Note If YES complete Sepsis Event Note Resident Review Statement Resident Statement: examined this patient, discussed with advisory internship, reviewed EMR data (avail), reviewed images, amended to note Other Findings: Patient is a 66-year-old male with past medical history of hypertension, hyperlipidemia, obstructive sleep apnea on CPAP, CAD status post WI and 4 stents , status post CABG in April currently on aspirin and Plavix, status post AICD/ pacemaker, diabetes, GERD presenting this admission with chief complaint of slurred speech. Patient reports that he was told by his test deck supervisor over the phone that he should come to the ED to be evaluated for stroke. Patient reports that he was on the phone with his test deck supervisor due to significant right foot pain recently diagnosed with gout. At approximately 4:30 PM the test deck supervisor urged the patient to go to the ED as he noticed the patient was slurring his speech. Patient and his state that he has been having difficulty with speech the night before this admission. also reports that she noticed some drooping of his left lip. Patient endorses dysphagia that is new for him. Patient also reports significant shortness of breath which started approximately 12 hours prior to admission. Reports of lower extremity edema, orthopnea. Denies chest pain, palpitations, nausea/vomiting. Denies fever, chills, abdominal pain, numbness/tingling, weakness on one side. Past medical history: As above, prostate cancer, cholecystectomy, prostatectomy, right great toe wound debridement, right groin abscess Patient's metal model maker is Dr. Kruger. Patient's test deck supervisor is Dr. Hernandez Vitals MAXIMUM TEMPERATURE 96, heart rate 104 went down to 99, respiration rate 18-22, blood pressure 128/62, saturating at 90-96% on 2 L nasal cannula Gen.: On patient in mild to moderate distress HEENT: Extraocular movements intact, pupils equal and react active to light Lungs: Bibasilar crackles CVS: S1, S2, regular rate and rhythm, elevated JVD Abdomen: Nontender, distended, soft, positive bowel sounds Neuro: Cranial nerves II through XII intact with the exception of droop of left lip and nasolabial fold, Strength and sensation intact Ext: bilateral pitting edema 1-2+, tender to palpation on the right, mild erythema of the right great toe Labs: WBC 12.8 with 93.2% granulocytes, H&H 12.6 and 38.5, platelet count 73, sodium 140, potassium 3.8, chloride 99, bicarbonate 18, BUN 58, creatinine 2.3 (up from 1.1 in March), glucose 173, anion gap: 22, T bili 4.3, AST 193, ALT 105, alkaline phosphatase 188, INR 1.44, PT 15.[address]:No acute intracranial pathology. Head and neck CTA: - No acute intracranial findings. - Calcific atherosclerotic disease without significant arterial stenosis and without acute arterial occlusion within the head or neck. Chest x-ray:Cardiomegaly with pulmonary venous congestion. No pulmonary edema. Mild bibasilar atelectasis in the lung volumes. Patient is a 66-year-old male with past medical history of hypertension, hyperlipidemia, obstructive sleep apnea on CPAP, CAD status post WI and 4 stents , status post CABG in April currently on aspirin and Plavix, status post AICD/ pacemaker, diabetes, GERD presenting this admission with chief complaint of slurred speech with symptoms suggestive of a stroke. CT was negative for any acute pathology. Patient was started on IV fluids due to a cat I however upon examination patient appeared fluid overloaded. IV fluids were discontinued and patient was given a one-time dose of IV Lasix. While in the ED patient became tachycardic to 180. Repeat EKG found atrial fibrillation. Patient was given IV metoprolol 1 and was admitted to ICU. In the ICU patient's heart rate remained elevated and he was given Cardizem push of 10 mg 1 and was started on an IV Cardizem drip. Patient became restless and anxious initially and later agitated. ABG was done revealing story acidosis with hypoxemia with a PO2 of 47 and with saturation of 79% on 4 L nasal cannula. Patient continued to get agitated and required bilateral wrist restraints. Patient was started on nonrebreather. Problems: Ischemic Stroke New onset Atrial Fibrillation New onset CHF Acute Hypoxemic Hypercarbic Respiratory Failure 2/2 above DEMETRIO Plan: Admitted to ICU Continuous telemetry monitoring IV diltiazem drip Anticoagulation held off in setting of recent stroke and concern for hemorrhagic transformation Cardiology consult in a.m. Serial EKG and troponins Repeat CBC and BEP MRI Lipid panel Hemoglobin A1c TRC/nebs Continue oxygen supplementation as required to maintain oxygen saturation greater than 91% Continue aspirin and Plavix Statin Barber catheter Diuresis with IV Lasix DVT PPx: Lovenox Diet: NPO pending swallow evaluation Code: Full code
[2017-09-06 01:00] VITALS: BP 108/72
[2017-09-06 07:28] LABS: ABSOLUTE BASOPHIL COUNT 0 /CUMM (0.0-0.2); ABSOLUTE EOSINOPHIL COUNT 0 /CUMM (0.0-0.7); ABSOLUTE GRANULOCYTE CT 13.3 /CUMM (1.4-6.5); ABSOLUTE LYMPH COUNT 0.4 /CUMM (1.2-3.4); ABSOLUTE MONOCYTE COUNT 1.4 /CUMM (0.10-0.60); BASOPHIL % 0 % (0.0-2.0); EOSINOPHIL % 0 % (0-5); GRANULOCYTE % 87.8 % (42.2-75.2); HEMATOCRIT 38.6 % (42-52); MEAN CORPUSCULAR HGB 26.5 PG (27.0-31.0); MEAN CORPUSCULAR HGB CONC 32.3 G/DL (33.0-37.0); MEAN CORPUSCULAR VOLUME 81.9 FL (80.0-94.0); MEAN PLATELET VOLUME 11.1 FL (7.4-10.4); RBC DISTRIBUTION WIDTH 19.7 % (11.5-14.5); RED BLOOD CELL CT 4.71 /CUMM (4.70-6.10); WHITE BLOOD CELL COUNT 15.1 /CUMM (4.8-10.8)
--- NOTE | 2017-09-06 07:28 | RADIOLOGY REPORT ---
EXAMINATION: XR PORTABLE CHEST CLINICAL INFORMATION: Shortness of breath. COMPARISON: Prior chest radiographs, most recently 09/05/2017. TECHNIQUE: Portable frontal view of the chest was obtained. FINDINGS: The heart, great vessels, pulmonary vasculature and mediastinum are stable. The heart size is at least top normal. There is mild pulmonary vascular congestion. There has been a prior median sternotomy. A dual-lead, dual-chamber pacemaker device shows no lead fracture or change in lead tip positions. Lung volumes are somewhat low, with crowding of bronchovascular and pulmonary parenchymal markings. There is mild elevation of the right hemidiaphragm. No focal infiltrate, effusion or pneumothorax is seen. There is no acute osseous abnormality. IMPRESSION: 1. There is cardiomegaly and mild pulmonary vascular congestion. No overt pulmonary edema is seen. 2. Lung volumes are low, with crowding of bronchovascular and pulmonary parenchymal markings. 3. There is stable mild elevation of the right hemidiaphragm.
--- NOTE | 2017-09-06 07:57 | Cons- CRCU ---
Anthony Vences 09/06/17 0756: General Information and HPI Consulting Request Date of Consult: 09/06/17 Source of Information: family Exam Limitations: unable to give history, not alert/orientated History of Present Illness: 65 y/o M with PMH of DM, Gout, MO s/p CABG on aspirin/plavix, HTN, and HLP who was brought to the ED by his after his thread dresser noticed his slurring of speech during a f/u for podagra. As per the , pt had sudden onset dysarthria , difficulty swallowing and L nasolabial fold drooping.On admit pertinent labs showed leukocytosis (12.8), thrombocytopenia (73), BUN/CR (58/2.3). EKG showed a -fib on admission with HR in the 180s; he was admitted to the ICU for management of rapid a-fib, pulm congestion, DEMETRIO and probable stroke. Allergies/Medications Allergies: Coded Allergies: No Known Allergies (02/19/16) Home Med List: Aspirin (Aspirin*) 81 MG TAB.CHEW 1 TAB PO DAILY HEART HEALTH (Reported) Atorvastatin Calcium 80 MG TABLET 1 TAB PO 1800 CHOLESTEROL (Reported) Bromocriptine Mesylate (Cycloset) 0.8 MG TABLET 1 TAB PO AD DM (Reported) Clopidogrel Bisulfate (Plavix) 75 MG TABLET 1 TAB PO DAILY HEART Please take as prescribed. Colchicine 0.6 MG TABLET 1 TAB PO BID GOUT (Reported) Empagliflozin (Jardiance) 25 MG TABLET 1 TAB PO DAILY DIABETES (Reported) Famotidine 20 MG TABLET 1 TAB PO BID GI (Reported) Insulin Aspart, Recombinant (Novolog Flexpen) 100 UNIT/ML INSULN.PEN DM ( Reported) Insulin Glargine,Hum.rec.anlog (Basaglar Kwikpen U-100) 100 UNIT/ML (3 ML) INSULN.PEN 20 UNITS SC QAM DM (Reported) Magnesium Oxide 400 MG TABLET 1 TAB PO BID SUPPLEMENT (Reported) Melatonin 3 MG TABLET 2 TAB PO QPM SLEEP (Reported) Metformin HCl 1,000 MG TABLET 1 TAB PO BID DIABETES (Reported) Metoprolol Tartrate 50 MG TABLET 1 TAB PO BID HEART/BP (Reported) Pantoprazole Sodium (Protonix) 40 MG TABLET.DR 1 TAB PO BID ULCER Please take as prescribed. Suvorexant (Belsomra) 20 MG TABLET 1 TAB PO QPM SLEEP (Reported) Valsartan 320 MG TABLET 1 TAB PO DAILY HEART (Reported) Review of Systems Review of Systems Constitutional: Reports: see HPI. EENTM: Reports: no symptoms. Cardiovascular: Reports: no symptoms. Respiratory: Reports: short of breath. GI: Reports: no symptoms. 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 Home Smoking Status: Never Smoked ETOH Use: occasional use Exam & Diagnostic Data Last 24 Hrs of Vital Signs/I&O Vital Signs Date Time Temp Pulse Resp B/P B/P Pulse O2 O2 Flow FiO2 Mean Ox Delivery Rate 09/06 1415 94 Nasal 50% Cannula 09/06 1410 133 95 09/06 1200 BIPAP 40% 09/06 1123 140 98 09/06 1109 BIPAP 40% 09/06 1107 98 BIPAP 40% 09/06 0820 140 98 09/06 0800 98 Non 100% ReBreather 09/06 0800 98.0 153 28 112/68 98 Non 100% ReBreather 09/06 0330 95 CPAP 4.0L 09/06 0204 94 Nasal 4.0L Cannula 09/06 0122 171 108/75 09/06 0100 97.9 155 27 108/72 92 Nasal 3.0L Cannula 09/06 0029 149 18 120/67 95 Nasal 2.0L Cannula 09/06 0023 144 26 120/67 09/05 2238 99 18 128/62 96 Nasal 2.0L Cannula 09/05 1943 96 20 121/65 Nasal 2.0L Cannula 09/05 1836 Room Air 09/05 1835 96.0 104 22 126/56 90 Room Air Intake & Output 09/06 1600 09/06 0800 09/06 0000 Intake Total 1599 30 1000 Output Total 90 125 Balance 1509 -95 1000 Intake, IV 1599 30 1000 Intake, Oral 0 0 Number 1 1 Bowel Movements Output, Urine 90 125 Patient 253 lb 250 lb Weight Weight Bed scale Estimated Measurement Method Microbiology Date/Time Procedure - Status Source Growth 09/06 0837 Blood Culture - RECD BLOOD 09/06 824 Blood Culture - RES BLOOD GRAM POSITIVE COCCI 09/06 0200 Urine Culture - RECD URINE ROUT 09/06 013 Surveillance Culture - RECD UPPER RESP 09/06 129 Surveillance Culture - RECD GI Physical Exam General Appearance: alert, awake, anxious, severe distress Head: atraumatic, normal appearance Eyes: Bilateral: normal appearance, PERRL, EOMI. Neck: normal inspection, supple Respiratory: chest non-tender, rhonchi, respiratory distress Cardiovascular: edema, irregularly irregular Gastrointestinal: normal bowel sounds, soft, non-tender, no organomegaly Extremities: normal inspection, normal capillary refill Neurologic/Psych: no motor/sensory deficits, awake, oriented to self and place, not time, dysarthria Cranial Nerves: normal hearing, normal speech Skin: intact, normal color Last 48 Hrs of Labs/[place]: Laboratory Tests 09/06/17 1430: Lactic Acid 3.2 H 09/06/17 1130: Lactic Acid 3.6 H 09/06/17 0900: pH 7.34 L, pCO2 31 L, pO2 195 H, HCO3 16 L, ABG O2 Sat (Measured) 99.0, Carboxyhemoglobin 0.2 L, O2 Concentration % 50%, Respiration Rate 22, O2 Delivery Method V60, Vent Mode ST, Expiratory Pressure 4, Inspiratory Pressure 16, Phlebotomy Draw Site LEFT RADIAL 09/06/17 0840: Urine Opiates Screen < 100, Methadone Screen 44, Barbiturate Screen < 60, Ur Phencyclidine Scrn < 6.00, Amphetamines Screen < 100, U Benzodiazepines Scrn < 85, Urine Cocaine Screen < 50, Urine Cannabis Screen < 5.00, Ur Random Creatinine 103.3, Ur Random Sodium 24 L, Ur Random Potassium 57.4, Fraction Sodium Excret 0.5 09/06/17 0825: Lactic Acid 5.3 H, Ammonia < 9 L 09/06/17 0825: Anion Gap 21 H, Estimated GFR 21 L, Glucose 166 H, Hemoglobin A1c Pending, Serum Osmolality 326 H, Calcium 8.4, Phosphorus 6.4 H, Magnesium 2.0, Total Bilirubin 5.3 H, AST 245 H, ALT 119 H, Tax-D-Pbuacxlutos Pept 8990 H, Albumin 3.0 L, CBC w Diff MAN DIFF ORDERED, RBC 4.74, MCV 82.3, MCH 26.1 L, MCHC 31.7 L, RDW 19.8 H, MPV 10.3, Gran % 87.6 H, Lymphocytes % 2.5 L, Monocytes % 9.9 H, Eosinophils % 0, Basophils % 0, Absolute Granulocytes 11.6 H, Segmented Neutrophils 58, Band Neutrophils 29 H, Absolute Lymphocytes 0.3 L , Lymphocytes 3 L, Monocytes 10 H, Absolute Monocytes 1.3 H, Absolute Eosinophils 0, Absolute Basophils 0, Platelet Estimate DECREASED, Polychromasia 1+, Anisocytosis 1+ 09/06/17 0610: Anion Gap 23 H, Estimated GFR 23 L, Glucose 147 H, Calcium 8.4, Phosphorus 5.1 H, Magnesium 1.9, Total Bilirubin 5.3 H, AST 237 H, ALT 111 H, Troponin I 0.09, Albumin 2.8 L, Triglycerides 439 H, Cholesterol 78, LDL Cholesterol Direct < 30.00, LDL Cholesterol, Calc ND, HDL Cholesterol 14 L, Cholesterol/HDL Ratio 5.6 H, CBC w Diff MAN DIFF ORDERED, RBC 4.71, MCV 81.9, MCH 26.5 L, MCHC 32.3 L, RDW 19.7 H, MPV 11.1 H, Gran % 87.8 H, Lymphocytes % 2.6 L, Monocytes % 9.6 H, Eosinophils % 0, Basophils % 0, Absolute Granulocytes 13.3 H, Segmented Neutrophils 61, Band Neutrophils 26 H, Absolute Lymphocytes 0.4 L , Lymphocytes 4 L, Monocytes 9, Absolute Monocytes 1.4 H, Absolute Eosinophils 0, Absolute Basophils 0, Platelet Estimate DECREASED, Polychromasia 1+, Anisocytosis 1+ 09/06/17 0600: Troponin I Cancelled 09/06/17 0500: pH 7.34 L, pCO2 32 L, pO2 47 *L, HCO3 17 L, ABG O2 Sat (Measured) 79.0 L, P- 50 (Temp Corrected) Y, Carboxyhemoglobin 0.7 L, O2 Concentration % 4 LPM, Temperature 97.2, O2 Delivery Method N/C, Phlebotomy Draw Site LEFT RADIAL 09/06/17 0200: Urinalysis HEAVY H, Urine Color BLDY H, Urine Clarity TURBD H, Urine pH 5.5, Ur Specific [place] 1.020, Urine Protein 100 H, Urine Ketones NEG, Urine Nitrite POS H, Urine Bilirubin NEG, Urine Urobilinogen 1.0, Ur Leukocyte Esterase NEG, Ur Microscopic SEDIMENT EXAMINED, Urine RBC PACKD H, Urine WBC 10 -15 H, Ur Epithelial Cells FEW, Urine Bacteria MOD H, Granular Casts 5-10 H, Urine Hemoglobin LARGE H, Urine Glucose 250 H 09/06/17 0129: Troponin I 0.10 09/05/17 1810: Anion Gap 22 H, Estimated GFR 29 L, BUN/Creatinine Ratio 25.2 H, Glucose 173 H, Calcium 8.8, Total Bilirubin 4.3 H, AST 193 H, ALT 105 H, Alkaline Phosphatase 188 H, Troponin I 0.09, Total Protein 6.5, Albumin 3.1 L, Globulin 3.4, Albumin/Globulin Ratio 0.9 L, PT 15.7 H, INR 1.44 H, APTT 35, D-Dimer High Sensitivty 6199 H, CBC w Diff MAN DIFF ORDERED, RBC 4.76, MCV 81.0, MCH 26.5 L, MCHC 32.7 L, RDW 19.2 H, MPV 11.1 H, Gran % 93.2 H, Lymphocytes % 1.7 L, Monocytes % 5.0, Eosinophils % 0.1, Basophils % 0, Absolute Granulocytes 11.9 H, Segmented Neutrophils 78 H, Band Neutrophils 21 H, Absolute Lymphocytes 0.2 L, Lymphocytes 1 L, Absolute Monocytes 0.6, Absolute Eosinophils 0, Absolute Basophils 0, Platelet Estimate VERIFIED BY SMEAR, Anisocytosis 1+, Fld Total RBCs Counted 100 Diagnostic Data CXR Results 09/06/17 EXAM TYPE: RAD - XRY-PORTABLE CHEST XRAY EXAMINATION: XR PORTABLE CHEST CLINICAL INFORMATION: Shortness of breath. COMPARISON: Prior chest radiographs, most recently 09/05/2017. TECHNIQUE: Portable frontal view of the chest was obtained. FINDINGS: The heart, great vessels, pulmonary vasculature and mediastinum are stable. The heart size is at least top normal. There is mild pulmonary vascular congestion. There has been a prior median sternotomy. A dual-lead, dual-chamber pacemaker device shows no lead fracture or change in lead tip positions. Lung volumes are somewhat low, with crowding of bronchovascular and pulmonary parenchymal markings. There is mild elevation of the right hemidiaphragm. No focal infiltrate, effusion or pneumothorax is seen. There is no acute osseous abnormality. IMPRESSION: 1. There is cardiomegaly and mild pulmonary vascular congestion. No overt pulmonary edema is seen. 2. Lung volumes are low, with crowding of bronchovascular and pulmonary parenchymal markings. 3. There is stable mild elevation of the right hemidiaphragm. Other Results 09/05/17 EXAM TYPE: CAT - CT HEAD WO IV CONTRAST EXAMINATION: CT HEAD WITHOUT CONTRAST CLINICAL INFORMATION: Slurred speech. Presumptive diagnosis: CVA COMPARISON: None TECHNIQUE: Contiguous axial imaging was performed from the skull base to vertex without intravenous administration of contrast. DLP: 615 mGy-cm FINDINGS: There is no evidence of acute intracranial hemorrhage or territorial infarction. No abnormal mass effect or midline shift is seen. [place] to white matter differentiation is well preserved. No extra-axial fluid collections are identified. The ventricles are normal in size. There is no abnormal attenuation within the brain parenchyma. The osseous structures and soft tissues are normal. The mastoid air cells and visualized portions of the paranasal sinuses are well aerated. IMPRESSION: No acute intracranial pathology. Assessment/Plan CRCU Impression/Plan: 65 y/o M with PMH of DM, Gout, MO s/p CABG on aspirin/plavix, HTN, and HLP who was brought to the ED by his after his thread dresser noticed his slurring of speech during a f/u for podagra. As per the , pt had sudden onset dysarthria , difficulty swallowing and L nasolabial fold drooping.On admit pertinent labs showed leukocytosis (12.8), thrombocytopenia (73), BUN/CR (58/2.3). EKG showed a -fib with RVR on admission with HR in the 180s, and pt was put on cardizem drip with no control of HR; he was admitted to the ICU for management of rapid a-fib, pulm congestion, DEMETRIO and probable stroke. In the ICU, pt is confused and dyspneic, oriented to self and time but not to place. Most of the information was gathered from the at bedside. Pt is still tachycardic, though improved after cardizem drip increased to 12.5. He is now on 50% O2 NC with 94% Sat. ASSESSMENT AND PLAN #Aspiration PNA vs fluid overload causing acute hypoxemic respiratory failure #A-fib with RVR. #DEMETRIO #TIA #Transaminitis Aspiration PNA vs fluid overload causing acute hypoxemic respiratory failure Patient's presentation of slurred speech and difficulty swallowing place the patient at risk for aspiration PNA, however patient on physical examination shows sign of fluid overload (edema, crackles B/L throughout) in this patient with extensive cardiac compromise as per history. Cultures were obtained and started growing gram positive cocci in chains / - empiric coverage was through Unasyn 3g q6. Pt currently with leukocytosis with bandemia, indicative of an acute inflammatory process. He is currently with O2 sat of 94% with a flow rate of 50% O2 with NC, looking less dyspneic. BNP was high (8990), indicating a cardiac component to his presentation is likely. Cardiology was consulted and is following. -continue IV cardizem 12.5 -Serial EKG/trops -f/u cardio recommendations -f/u echo -f/u lactic acid -f/u LE doppler -aspiration precautions -03/28 Blood cultures + for gram positive cocci in chains A-fib with RVR On admit, pt's EKG showed Afib with RVR and was put on a cardizem drip with non abating HR. Dose was increased to 12.5 mg, now HR around 130s. Monitor with serial EKGs. -Continue IV cardizem -Anticoagulation in 3 days if needed as per neurology's recommendation DEMETRIO/Transaminitis Pt's creatinine since admit has been on a rising trend from 2.3-3.0. This could be due to hemodynamic compromise or ATN - urine lytes and FeNA were ordered to guide diagnosis: a low FeNA (0.5) does point towards a more pre-renal pathology. Pt is currently on NS @ 100 cc/hr. High Bili/Liver enzymes could be due to vascular congestion or underlying liver pathology. Abdomen U/S was ordered to assess kidney and liver pathology. -continue NS @ 100cc/hr, adjusting as needed -f/u BEP/Bun and Cr -Nephro consult Stroke vs TIA As per 's history, concerning for CVA. Head CT showed no intracranial pathology, and neurology was consulted. On examination, pt was confused though no focal neurological deficit was observed -- TIA fits more the picture due to sx resolution. As per neurology's recommendation, a head CT should be repeated in 3-4 days. Pt with ICD might not qualify for MRI. -Repeat CT 3-4d FULL CODE DVT PPX NPO Problem List: 1. CVA (cerebral vascular accident) 2. DEMETRIO (acute kidney injury) 3. New onset a-fib Consult Acknowledgment - Thank you for your consult request. Yordy Anand MD 09/06/17 0759: General Information and HPI Consulting Request Date of Consult: 09/06/17 Requested By: Dr. Teixeira Reason for Consult: ICU management for critical illness Source of Information: old records Exam Limitations: unable to give history, not alert/orientated, clinical condition, confusion Allergies/Medications Current Medications: Current Medications Sig/Jasvir Start time Last Medication Dose Route Stop Time Status Admin Acetaminophen 650 MG Q6P PRN 09/06 0345 AC PO Acetaminophen 1,000 MG Q6P PRN 09/06 0345 AC 09/06 IV 0359 Aspirin Buffered 81 MG DAILY 09/06 0900 AC PO Diltiazem HCl 125 MG Q24H 09/06 0230 AC 09/06 Dextrose/Water 100 ML IV 0329 Diltiazem HCl 125 MG Q24H 09/06 0200 DC 09/06 Sodium Chloride 100 ML IV 0152 Diltiazem HCl 10 MG ONCE ONE 09/06 0130 DC 09/06 IV PUSH 09/06 0131 0122 Diltiazem HCl 125 MG Q24H 09/06 0115 DC Dextrose/Water 100 ML IV Enoxaparin Sodium 40 MG DAILY 09/06 0900 AC SC Furosemide 20 MG ONCE ONE 09/06 0030 DC 09/06 IV 09/06 0031 0026 Furosemide 0 .STK-MED ONE 09/06 0025 DC IV Insulin Aspart 0 TIDAC 09/06 0800 AC SC Lorazepam 0.5 MG ONCE ONE 09/06 0430 DC 09/06 IV 09/06 0431 0430 Metoprolol Tartrate 0 .STK-MED ONE 09/06 0017 DC IV Metoprolol Tartrate 5 MG ONCE ONE 09/06 0015 DC 09/06 IV 09/06 0016 0023 Ondansetron HCl 4 MG ONCE ONE 09/06 0100 DC 09/06 IV 09/06 0101 0047 Ondansetron HCl 0 .STK-MED ONE 09/06 0043 DC .ROUTE Sodium Chloride 1,000 ML BOLUS ONE 09/05 2230 DC 09/05 IV 09/05 4741 0166 Assessment/Plan CRCU Other Findings/Comments: I have seen and evaluated the patient and agree with the resident's assessment and plan as detailed above. Briefly, the patient is a 65-year-old male with a past medical history significant for diabetes, MO, CABG, hyperlipidemia and hyperlipidemia. The patient was seen by his thread dresser yesterday due to pain in his right foot secondary to gout. The patient was noted to have a change in speech and it was recommended he report to the emergency department. The patient was evaluated in the ED where he was found to have a nonhemorrhagic stroke. While being transferred to telemetry the patient had progressively worsening shortness of breath secondary to fluid overload and atrial fibrillation with rapid ventricular response. The patient was started on diltiazem. Heparin could not be started due to his current stroke. After being admitted to the ICU, the patient developed progressively worsening confusion, tremulousness and agitation. His oxygen saturation dropped and he is now on 100 %. He is tachypneic. He is incoherent and not able to offer complaints. The patient's blood pressure is 100/60. His heart rate is in the 160s despite diltiazem drip. Impression: 1. Progressively worsening acute hypoxemic respiratory failure in the setting of possible fluid overload versus aspiration pneumonia/pneumonitis. 2. Acute on chronic kidney injury. 3. Atrial fibrillation with rapid ventricular response. 4. New onset ischemic CVA. 5. Elevated bilirubin and transaminitis, may be related to vascular congestion. 6. Elevated anion gap, increasing leukocytosis with bandemia which may be related to sepsis. Source remains unclear as of yet. Plan: * Start BiPAP 16/4 cm H2O, respiratory rate 20. * If the patient's respiratory status does not improve, he may require intubation and mechanical ventilation. * Check an ABG after being on BiPAP for 30 minutes. * Give normal saline 500 mL fluid bolus. * Monitor blood pressure closely. * The patient may benefit from central line placement. * Check lactic acid and ammonia levels stat. * Check magnesium and Phos level stat. * Check a BNP now. * Check urgent lower extremity Dopplers. * Cardiology consult requested urgently. * Check an echocardiogram. * Monitor serial troponins. * Continue diltiazem drip for rate control, pending cardiology input. * Nephrology consult to be obtained. * Check an urgent abdominal ultrasound, to further evaluate the patient for transaminitis and acute renal failure. * Check pancultures now. * Start IV Unasyn, give first dose stat. * Check urine toxicology screen. * N.p.o. for now, strict aspiration precautions. * Continue to monitor neuro checks. * Neurology consult to be requested for today. * DVT prophylaxis at all times. * Monitor labs every 4 hours until the patient has improved today. * The patient is critically ill, and has potential for progressive deterioration. I have discussed the plan of care with house staff and asked them to follow the patient closely. I asked to be updated with any changes in the patient's condition. Consult Acknowledgment - Thank you for your consult request.
[2017-09-06 08:00] VITALS: BP 112/68
--- NOTE | 2017-09-06 08:00 | Admission Certification ---
Admission Certification Certification Statement - As attending physician, I certify that at the time of - admission, based on clinical presentation, severity of - symptoms, need for further diagnostic testing and - therapeutic interventions, and risk of adverse outcomes - without in-hospital treatment, in my clinical assessment, - this patient requires an acute hospital stay for a minimum - of two nights or longer. I have also considered psychsocial - factors such as support system, advanced age, financial - issues, cognitive issues, and failed out-patient treatments, - past re-admission history, safety of patient, and lack of - compliance as applicable. Specific rationale supporting this admission is: Ischemic stroke, rapid atrial fibrillation, progressive respiratory failure, and acute kidney injury. The patient will require ICU monitoring and management for critical illness.
[2017-09-06 08:23] LABS: PLATELET COUNT 47 /CUMM (130-400)
[2017-09-06 08:58] LABS: ABSOLUTE BASOPHIL COUNT 0 /CUMM (0.0-0.2); ABSOLUTE EOSINOPHIL COUNT 0 /CUMM (0.0-0.7); ABSOLUTE GRANULOCYTE CT 11.6 /CUMM (1.4-6.5); ABSOLUTE LYMPH COUNT 0.3 /CUMM (1.2-3.4); ABSOLUTE MONOCYTE COUNT 1.3 /CUMM (0.10-0.60); BASOPHIL % 0 % (0.0-2.0); EOSINOPHIL % 0 % (0-5); GRANULOCYTE % 87.6 % (42.2-75.2); MEAN CORPUSCULAR HGB 26.1 PG (27.0-31.0); MEAN CORPUSCULAR HGB CONC 31.7 G/DL (33.0-37.0); MEAN CORPUSCULAR VOLUME 82.3 FL (80.0-94.0); MEAN PLATELET VOLUME 10.3 FL (7.4-10.4); RBC DISTRIBUTION WIDTH 19.8 % (11.5-14.5); RED BLOOD CELL CT 4.74 /CUMM (4.70-6.10); WHITE BLOOD CELL COUNT 13.3 /CUMM (4.8-10.8)
[2017-09-06 09:51] LABS: PLATELET COUNT 47 /CUMM (130-400)
--- NOTE | 2017-09-06 11:03 | Cons- Cardiology ---
General Information and HPI Consulting Request Date of Consult: 09/06/17 Requested By: Jose Teixeira MD Reason for Consult: CVA; atrial fibrillation of unclear duration Source of Information: family Exam Limitations: unable to give history, clinical condition History of Present Illness: The patient is a 65-year-old male who is followed by Drs. HOFFMAN and [place]. His past medical history is remarkable for diabetes, coronary disease, prior myocardial infarction, bypass surgery, hypertension and hyperlipidemia. The patient is admitted to the hospital now with slurred speech and evidence of an ischemic stroke. Apparently, the patient saw his hospice office coordinator yesterday due to right foot pain from gout. Later in the day, during a telephone call the patient was noted to have speech changes and was sent to the emergency room for evaluation. Patient was also noting increasing shortness of breath. Apparently, the patient's also noted a left-sided facial droop. No other significant cardiac symptoms were noted. In the emergency room, the patient was noted to be in atrial fibrillation with an elevated rate, of unclear duration. Admitted to the ICU for treatment and closer monitoring. At the moment, the patient is on BiPAP, awake, unable to give history. Information was obtained from the patient's . Allergies/Medications Allergies: Coded Allergies: No Known Allergies (02/19/16) Home Med List: Aspirin (Aspirin*) 81 MG TAB.CHEW 1 TAB PO DAILY HEART HEALTH (Reported) Atorvastatin Calcium 80 MG TABLET 1 TAB PO 1800 CHOLESTEROL (Reported) Bromocriptine Mesylate (Cycloset) 0.8 MG TABLET 1 TAB PO AD DM (Reported) Clopidogrel Bisulfate (Plavix) 75 MG TABLET 1 TAB PO DAILY HEART Please take as prescribed. Colchicine 0.6 MG TABLET 1 TAB PO BID GOUT (Reported) Empagliflozin (Jardiance) 25 MG TABLET 1 TAB PO DAILY DIABETES (Reported) Famotidine 20 MG TABLET 1 TAB PO BID GI (Reported) Insulin Aspart, Recombinant (Novolog Flexpen) 100 UNIT/ML INSULN.PEN DM ( Reported) Insulin Glargine,Hum.rec.anlog (Basaglar Kwikpen U-100) 100 UNIT/ML (3 ML) INSULN.PEN 20 UNITS SC QAM DM (Reported) Magnesium Oxide 400 MG TABLET 1 TAB PO BID SUPPLEMENT (Reported) Melatonin 3 MG TABLET 2 TAB PO QPM SLEEP (Reported) Metformin HCl 1,000 MG TABLET 1 TAB PO BID DIABETES (Reported) Metoprolol Tartrate 50 MG TABLET 1 TAB PO BID HEART/BP (Reported) Pantoprazole Sodium (Protonix) 40 MG TABLET.DR 1 TAB PO BID ULCER Please take as prescribed. Suvorexant (Belsomra) 20 MG TABLET 1 TAB PO QPM SLEEP (Reported) Valsartan 320 MG TABLET 1 TAB PO DAILY HEART (Reported) Current Medications: Current Medications Sig/Jasvir Start time Last Medication Dose Route Stop Time Status Admin Acetaminophen 650 MG Q6P PRN 09/06 0345 AC PO Acetaminophen 1,000 MG Q6P PRN 09/06 0345 AC 09/06 IV 0359 Ampicillin Sodium/ 3,000 MG Q6H 09/06 0900 AC 09/06 Sulbactam Sodium IV 0926 Sodium Chloride 100 ML Aspirin Buffered 81 MG DAILY 09/06 0900 AC PO Diltiazem HCl 125 MG Q12H 09/06 1500 AC Dextrose/Water 100 ML IV Diltiazem HCl 125 MG Q24H 09/06 0230 AC 09/06 Dextrose/Water 100 ML IV 09/06 1459 0329 Diltiazem HCl 125 MG Q24H 09/06 0200 DC 09/06 Sodium Chloride 100 ML IV 0152 Diltiazem HCl 10 MG ONCE ONE 09/06 0130 DC 09/06 IV PUSH 09/06 0131 0122 Diltiazem HCl 125 MG Q24H 09/06 0115 DC Dextrose/Water 100 ML IV Enoxaparin Sodium 40 MG DAILY 09/06 0900 AC SC Furosemide 20 MG ONCE ONE 09/06 0030 DC 09/06 IV 09/06 0031 0026 Furosemide 0 .STK-MED ONE 09/06 0025 DC IV Insulin Aspart 0 TIDAC 09/06 0800 AC SC Lorazepam 0.5 MG ONCE ONE 09/06 0430 DC 09/06 IV 09/06 0431 0430 Metoprolol Tartrate 0 .STK-MED ONE 09/06 0017 DC IV Metoprolol Tartrate 5 MG ONCE ONE 09/06 0015 DC 09/06 IV 09/06 0016 0023 Ondansetron HCl 4 MG ONCE ONE 09/06 0100 DC 09/06 IV 09/06 0101 0047 Ondansetron HCl 0 .STK-MED ONE 09/06 0043 DC .ROUTE Sodium Chloride 1,000 ML Q10H 09/06 0930 AC IV Sodium Chloride 500 ML BOLUS ONE 09/06 0830 DC 09/06 IV 09/06 0929 0849 Sodium Chloride 1,000 ML BOLUS ONE 09/05 2229 DC 09/05 IV 09/05 2329 2233 Past History Travel History Traveled to [place] past 21 day No Medical History Blood Transfusion Hx: Yes Neurological: NONE EENT: hearing loss Cardiovascular: hypertension, hyperlipidemia, myocardial infarction Respiratory: obstructive sleep apnea Gastrointestinal: GERD Hepatic: NONE Renal: NONE Musculoskeletal: gout Psychiatric: NONE Endocrine: diabetes Blood Disorders: NONE Cancer(s): prostate cancer [employer]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 Home Smoking Status: Never Smoked ETOH Use: occasional use Exam & Diagnostic Data Vital Signs and I&O Vital Signs Date Time Temp Pulse Resp B/P B/P Pulse O2 O2 Flow FiO2 Mean Ox Delivery Rate 09/06 0800 98.0 153 28 112/68 98 Non 100% ReBreather 09/06 0330 95 CPAP 4.0L 09/06 0204 94 Nasal 4.0L Cannula 09/06 0122 171 108/75 09/06 0100 97.9 155 27 108/72 92 Nasal 3.0L Cannula 09/06 0029 149 18 120/67 95 Nasal 2.0L Cannula 09/06 0023 144 26 120/67 09/05 2238 99 18 128/62 96 Nasal 2.0L Cannula 09/05 1943 96 20 121/65 Nasal 2.0L Cannula 09/05 1836 Room Air 09/05 1835 96.0 104 22 126/56 90 Room Air Intake & Output 09/06 1600 09/06 0800 09/06 0000 09/05 1600 09/05 0800 09/05 0000 Intake Total 30 1000 Output Total 125 Balance -95 1000 Intake, IV 30 1000 Intake, Oral 0 0 Number 1 Bowel Movements Output, Urine 125 Patient 253 lb 250 lb Weight Weight Bed scale Estimated Measurement Method Physical Exam: General Appearance: well developed/nourished, overweight white male, on BiPAP, alert, awake, Head: normal HEENT: Normal Neck: supple, JVP normal, carotid upstrokes normal bilaterally, no masses or thyromegaly Respiratory: chest non-tender, clear to auscultation and percussion bilaterally Cardiovascular: Irregular, tachycardic, S1, S2, 1/6 systolic murmur Abdomen: normal bowel sounds, soft, non-tender Extremities: normal inspection, no edema Vascular: Pulses are 2+ and equal bilaterally Neurologic: Grossly normal/nonfocal Labs/[place] Results: Laboratory Tests 09/06 09/06 09/06 0900 0840 0825 Blood Gas pH (7.35 - 7.45 PH) 7.34 L pCO2 (35 - 45 TORR) 31 L pO2 (80 - 100 TORR) 195 H HCO3 (21 - 28 MEQ/L) 16 L ABG O2 Sat (Measured) (>96.0 %) 99.0 Carboxyhemoglobin (1.5 - 5.0 %) 0.2 L O2 Concentration % 50% Respiration Rate (BPM) 22 O2 Delivery Method V60 Vent Mode ST Expiratory Pressure (CM H2O P) 4 Inspiratory Pressure (CM H2O P) 16 Chemistry Lactic Acid (0.7 - 2.1 mmol/L) 5.3 H Ammonia (9 - 30 umol/L) < 9 L Miscellaneous Phlebotomy Draw Site LEFT RADIAL Toxicology Urine Opiates Screen (>2000 NG/ML) < 100 Methadone Screen (>300 NG/ML) 44 Barbiturate Screen (>200 NG/ML) < 60 Ur Phencyclidine Scrn (>25 NG/ML) < 6.00 Amphetamines Screen (>1000 NG/ML) < 100 U Benzodiazepines Scrn (>200 NG/ML) < 85 Urine Cocaine Screen (>300 NG/ML) < 50 Urine Cannabis Screen (>50 NG/ML) < 5.00 09/06 09/06 0825 0610 Chemistry Sodium (137 - 145 mmol/L) 142 143 Potassium (3.5 - 5.1 mmol/L) 4.2 3.7 Chloride (98 - 107 mmol/L) 101 103 Carbon Dioxide (22 - 30 mmol/L) 19 L 17 L Anion Gap (5 - 16) 21 H 23 H BUN (9 - 20 mg/dL) 67 H 65 H Creatinine (0.7 - 1.2 mg/dL) 3.0 H 2.8 H Estimated GFR (>60 ml/min) 21 L 23 L Glucose (65 - 99 mg/dL) 166 H 147 H Serum Osmolality (285 - 295 MOSM/KG) Pending Calcium (8.4 - 10.2 mg/dL) 8.4 8.4 Phosphorus (2.5 - 4.5 mg/dL) 6.4 H 5.1 H Magnesium (1.6 - 2.3 mg/dL) 2.0 1.9 Total Bilirubin (0.2 - 1.3 mg/dL) 5.3 H 5.3 H AST (17 - 59 U/L) 245 H 237 H ALT (21 - 72 U/L) 119 H 111 H [id number] Pept (<125 pg/mL) 8990 H Albumin (3.5 - 5.0 g/dL) 3.0 L 2.8 L Triglycerides (<150 mg/dL) 439 H Cholesterol (< 200 MG/DL) 78 LDL Cholesterol Direct (<100 mg/dL) < 30.00 LDL Cholesterol, Calc (65 - 129 mg/dL) ND HDL Cholesterol (40 - 60 mg/dL) 14 L Cholesterol/HDL Ratio (0.00 - 4.88 %) 5.6 H Hematology CBC w Diff MAN DIFF ORDERED MAN DIFF ORDERED WBC (4.8 - 10.8 /CUMM) 13.3 H 15.1 H RBC (4.70 - 6.10 /CUMM) 4.74 4.71 Hgb (14.0 - 18.0 G/DL) 12.4 L 12.5 L Hct (42 - 52 %) 39.0 L 38.6 L MCV (80.0 - 94.0 FL) 82.3 81.9 MCH (27.0 - 31.0 PG) 26.1 L 26.5 L MCHC (33.0 - 37.0 G/DL) 31.7 L 32.3 L RDW (11.5 - 14.5 %) 19.8 H 19.7 H Plt Count (130 - 400 /CUMM) 47 L 47 L MPV (7.4 - 10.4 FL) 10.3 11.1 H Gran % (42.2 - 75.2 %) 87.6 H 87.8 H Lymphocytes % (20.5 - 51.1 %) 2.5 L 2.6 L Monocytes % (1.7 - 9.3 %) 9.9 H 9.6 H Eosinophils % (0 - 5 %) 0 0 Basophils % (0.0 - 2.0 %) 0 0 Absolute Granulocytes (1.4 - 6.5 /CUMM) 11.6 H 13.3 H Segmented Neutrophils (42.2 - 75.2 %) Pending 61 Band Neutrophils (0.0 - 5.0 %) 26 H Absolute Lymphocytes (1.2 - 3.4 /CUMM) 0.3 L 0.4 L Lymphocytes (20.5 - 51.1 %) 4 L Monocytes (1.7 - 9.3 %) 9 Absolute Monocytes (0.10 - 0.60 /CUMM) 1.3 H 1.4 H Absolute Eosinophils (0.0 - 0.7 /CUMM) 0 0 Absolute Basophils (0.0 - 0.2 /CUMM) 0 0 Platelet Estimate (ADEQUATE) DECREASED Polychromasia 1+ Anisocytosis 1+ 09/06 09/06 09/06 0500 0200 0129 Blood Gas pH (7.35 - 7.45 PH) 7.34 L pCO2 (35 - 45 TORR) 32 L pO2 (80 - 100 TORR) 47 *L HCO3 (21 - 28 MEQ/L) 17 L ABG O2 Sat (Measured) (>96.0 %) 79.0 L P-50 (Temp Corrected) Y Carboxyhemoglobin (1.5 - 5.0 %) 0.7 L O2 Concentration % 4 LPM Temperature (97.0 - 100.0 FARH) 97.2 O2 Delivery Method N/C Chemistry Troponin I (<0.11 ng/ml) 0.10 Miscellaneous Phlebotomy Draw Site LEFT RADIAL Urines Urinalysis HEAVY H Urine Color (YEL,AMB,STR) BLDY H Urine Clarity (CLEAR) TURBD H Urine pH (5.0 - 8.0) 5.5 Ur Specific [place] (1.001 - 1.035) 1.020 Urine Protein (NEG,<30 MG/DL) 100 H Urine Ketones (NEG) NEG Urine Nitrite (NEG) POS H Urine Bilirubin (NEG) NEG Urine Urobilinogen (0.1 - 1.0 EU/dl) 1.0 Ur Leukocyte Esterase (NEG) NEG Ur Microscopic SEDIMENT EXAMINED Urine RBC (0 - 5 /HPF) PACKD H Urine WBC (0 - 2 /HPF) 10-15 H Ur Epithelial Cells (NONE,FEW) FEW Urine Bacteria (NEG/NONE) MOD H Granular Casts (NONE /LPF) 5-10 H Urine Hemoglobin (NEG) LARGE H Urine Glucose (N MG/DL) 250 H 07/13 1810 Chemistry Sodium (137 - 145 mmol/L) 140 Potassium (3.5 - 5.1 mmol/L) 3.8 Chloride (98 - 107 mmol/L) 99 Carbon Dioxide (22 - 30 mmol/L) 18 L Anion Gap (5 - 16) 22 H BUN (9 - 20 mg/dL) 58 H Creatinine (0.7 - 1.2 mg/dL) 2.3 H Estimated GFR (>60 ml/min) 29 L BUN/Creatinine Ratio (7 - 25 %) 25.2 H Glucose (65 - 99 mg/dL) 173 H Calcium (8.4 - 10.2 mg/dL) 8.8 Total Bilirubin (0.2 - 1.3 mg/dL) 4.3 H AST (17 - 59 U/L) 193 H ALT (21 - 72 U/L) 105 H Alkaline Phosphatase (< 127 U/L) 188 H Troponin I (<0.11 ng/ml) 0.09 Total Protein (6.3 - 8.2 g/dL) 6.5 Albumin (3.5 - 5.0 g/dL) 3.1 L Globulin (1.9 - 4.2 gm/dL) 3.4 Albumin/Globulin Ratio (1.1 - 2.2 %) 0.9 L Coagulation PT (9.4 - 12.5 SEC) 15.7 H INR (0.90 - 1.17) 1.44 H APTT (25 - 37 SEC) 35 D-Dimer High Sensitivty (0 - 243 ng/ml) 6199 H Hematology CBC w Diff MAN DIFF ORDERED WBC (4.8 - 10.8 /CUMM) 12.8 H RBC (4.70 - 6.10 /CUMM) 4.76 Hgb (14.0 - 18.0 G/DL) 12.6 L Hct (42 - 52 %) 38.5 L MCV (80.0 - 94.0 FL) 81.0 MCH (27.0 - 31.0 PG) 26.5 L MCHC (33.0 - 37.0 G/DL) 32.7 L RDW (11.5 - 14.5 %) 19.2 H Plt Count (130 - 400 /CUMM) 73 L MPV (7.4 - 10.4 FL) 11.1 H Gran % (42.2 - 75.2 %) 93.2 H Lymphocytes % (20.5 - 51.1 %) 1.7 L Monocytes % (1.7 - 9.3 %) 5.0 Eosinophils % (0 - 5 %) 0.1 Basophils % (0.0 - 2.0 %) 0 Absolute Granulocytes (1.4 - 6.5 /CUMM) 11.9 H Segmented Neutrophils (42.2 - 75.2 %) 78 H Band Neutrophils (0.0 - 5.0 %) 21 H Absolute Lymphocytes (1.2 - 3.4 /CUMM) 0.2 L Lymphocytes (20.5 - 51.1 %) 1 L Absolute Monocytes (0.10 - 0.60 /CUMM) 0.6 Absolute Eosinophils (0.0 - 0.7 /CUMM) 0 Absolute Basophils (0.0 - 0.2 /CUMM) 0 Platelet Estimate (ADEQUATE) VERIFIED BY SMEAR Anisocytosis 1+ Other Body Source Fld Total RBCs Counted (%) 100 Assessment/Plan Assessment/Plan Assessment: 1. Acute CVA 2. Atrial fibrillation of unclear duration with elevated ventricular rate 3. Acute hypoxemic/hypercapnic respiratory failure, likely related to CHF with elevated proBNP 4. Acute on chronic renal insufficiency 5. Lactic acidosis 6. Abnormal liver function tests 7. Recommendations: -Maintain on telemetry monitoring -Continue as per the ICU and neurologic teams -Echocardiogram pending -Continue IV Cardizem for rate control as tolerated by blood pressure -Nephrology input pending -Serial ECGs and troponins -Continue antibiotics pending culture results -Lower extremity venous Dopplers pending -Anticoagulation on hold for now pending input from neurology -Please try to obtain all [facility] records with respect to the patient's cardiology issues, cardiac interventions, any recent testing such as echocardiogram, etc. Consult Acknowledgment - Thank you for your consult request.
--- NOTE | 2017-09-06 11:57 | ULTRASOUND REPORT ---
EXAMINATION: US ABDOMEN COMPLETE CLINICAL INFORMATION: Transaminitis; acute kidney injury; hypotension. COMPARISON: CT abdomen and pelvis dated 04/14/2017 TECHNIQUE: Real-time imaging of the abdominal viscera. FINDINGS: PANCREAS: Normal. ABDOMINAL AORTA: The proximal segment is normal in caliber. INFERIOR VENA CAVA: Visualized portions are normal. LIVER: There is hepatomegaly. The liver demonstrates a lobular contour and heterogeneous echogenicity. No focal lesion or intrahepatic biliary duct dilatation. GALLBLADDER: Surgically absent. COMMON BILE DUCT: Normal in caliber measuring 0.5 cm in diameter. RIGHT KIDNEY: Normal. No hydronephrosis. No renal calculi or focal parenchymal lesions. The kidney measures 13.0 cm in maximum dimension. LEFT KIDNEY: Normal. No hydronephrosis. No renal calculi or focal parenchymal lesions. The kidney measures 13.1 cm in maximum dimension. SPLEEN: No focal finding. The spleen measures 17.1 cm in maximum dimension. FREE FLUID: None. IMPRESSION: 1. There is hepatosplenomegaly. 2. There is heterogeneous hepatic echotexture, consistent with fatty infiltration or hepatocellular disease. Lobulated contour favors cirrhosis. Please correlate clinically. No focal hepatic mass or intrahepatic biliary dilatation is seen. 3. The gallbladder is surgically absent. EXAMINATION: US TRIPLEX LOWER EXTREMITY, BILATERAL CLINICAL INFORMATION: Shortness of breath. COMPARISON: None. TECHNIQUE: Color-flow triplex imaging with spectral analysis and compression Doppler were performed on the lower extremities. FINDINGS: Respiratory variation, normal compression and augmented flow are noted throughout the lower extremities. The visualized common femoral vein, proximal greater saphenous vein, femoral vein, profunda femoral vein, popliteal vein and mid calf peroneal and posterior tibial venous segments show no evidence of deep venous thrombosis. There is no Armendariz's cyst. IMPRESSION: Normal triplex scan without evidence of deep venous thrombosis involving the lower extremities.
[2017-09-06 16:00] VITALS: BP 142/70
--- NOTE | 2017-09-06 17:40 | Cons- Neurology ---
General Information and HPI Consulting Request Date of Consult: 09/06/17 Requested By: Jose Teixeira MD History of Present Illness: 65-year-old male admitted to hospital yesterday A stroke alert was called History obtained from medical records and from 3 Days ago he developed pain in the right foot and swelling and was diagnosed as gout; placed on colchicine Subsequently probably day after he developed slurred speech noted that he appeared to be "droopy " left side of the face There was no weakness of upper extremities He noted difficulties swallowing He then developed shortness of breath and confusion In the ED he was found to be in atrial fibrillation states that status seems to be slowly improving Allergies/Medications Allergies: Coded Allergies: No Known Allergies (02/19/16) Home Med List: Aspirin (Aspirin*) 81 MG TAB.CHEW 1 TAB PO DAILY HEART HEALTH (Reported) Atorvastatin Calcium 80 MG TABLET 1 TAB PO 1800 CHOLESTEROL (Reported) Bromocriptine Mesylate (Cycloset) 0.8 MG TABLET 1 TAB PO AD DM (Reported) Clopidogrel Bisulfate (Plavix) 75 MG TABLET 1 TAB PO DAILY HEART Please take as prescribed. Colchicine 0.6 MG TABLET 1 TAB PO BID GOUT (Reported) Empagliflozin (Jardiance) 25 MG TABLET 1 TAB PO DAILY DIABETES (Reported) Famotidine 20 MG TABLET 1 TAB PO BID GI (Reported) Insulin Aspart, Recombinant (Novolog Flexpen) 100 UNIT/ML INSULN.PEN DM ( Reported) Insulin Glargine,Hum.rec.anlog (Basaglar Kwikpen U-100) 100 UNIT/ML (3 ML) INSULN.PEN 20 UNITS SC QAM DM (Reported) Magnesium Oxide 400 MG TABLET 1 TAB PO BID SUPPLEMENT (Reported) Melatonin 3 MG TABLET 2 TAB PO QPM SLEEP (Reported) Metformin HCl 1,000 MG TABLET 1 TAB PO BID DIABETES (Reported) Metoprolol Tartrate 50 MG TABLET 1 TAB PO BID HEART/BP (Reported) Pantoprazole Sodium (Protonix) 40 MG TABLET.DR 1 TAB PO BID ULCER Please take as prescribed. Suvorexant (Belsomra) 20 MG TABLET 1 TAB PO QPM SLEEP (Reported) Valsartan 320 MG TABLET 1 TAB PO DAILY HEART (Reported) Current Medications: Current Medications Sig/Jasvir Start time Last Medication Dose Route Stop Time Status Admin Acetaminophen 650 MG Q6P PRN 09/06 0345 AC PO Acetaminophen 1,000 MG Q6P PRN 09/06 0345 AC 09/06 IV 0359 Albuterol Sulfate 3 ML Q4P PRN 09/06 1115 AC INH Ampicillin Sodium/ 3,000 MG Q6H 09/06 1545 AC 09/06 Sulbactam Sodium IV 1649 Sodium Chloride 100 ML Ampicillin Sodium/ 3,000 MG Q6H 09/06 0900 DC 09/06 Sulbactam Sodium IV 0926 Sodium Chloride 100 ML Aspirin Buffered 81 MG DAILY 09/06 0900 AC PO Ceftriaxone Sodium 1,000 MG DAILY 09/06 1541 DC IV Diltiazem HCl 125 MG Q12H 09/06 1500 AC 09/06 Dextrose/Water 100 ML IV 1433 Diltiazem HCl 125 MG Q24H 09/06 0230 DC 09/06 Dextrose/Water 100 ML IV 09/06 1459 0329 Diltiazem HCl 125 MG Q24H 09/06 0200 DC 09/06 Sodium Chloride 100 ML IV 0152 Diltiazem HCl 10 MG ONCE ONE 09/06 0130 DC 09/06 IV PUSH 09/06 0131 0122 Diltiazem HCl 125 MG Q24H 09/06 0115 DC Dextrose/Water 100 ML IV Doxycycline Hyclate 100 MG BID 09/06 1226 AC PO Enoxaparin Sodium 40 MG DAILY 09/06 0900 AC SC Furosemide 20 MG ONCE ONE 09/06 0030 DC 09/06 IV 09/06 0031 0026 Furosemide 0 .STK-MED ONE 09/06 0025 DC IV Insulin Aspart 0 TIDAC 09/06 0800 DC SC Insulin Human Regular 0 Q6 09/06 1223 AC 09/06 SC 1229 Lorazepam 0.5 MG ONCE ONE 09/06 0430 DC 09/06 IV 09/06 0431 0430 Metoprolol Tartrate 0 .STK-MED ONE 09/06 0017 DC IV Metoprolol Tartrate 5 MG ONCE ONE 09/06 0015 DC 09/06 IV 09/06 0016 0023 Ondansetron HCl 4 MG ONCE ONE 09/06 0100 DC 09/06 IV 09/06 0101 0047 Ondansetron HCl 0 .STK-MED ONE 09/06 0043 DC .ROUTE Sodium Chloride 1,000 ML Q10H 09/06 0930 AC 09/06 IV 0930 Sodium Chloride 500 ML BOLUS ONE 09/06 0830 DC 09/06 IV 09/06 0929 0849 Sodium Chloride 1,000 ML BOLUS ONE 09/05 2230 DC 09/05 IV 09/05 2329 2233 Review of Systems Review of Systems: No headache No diplopia No vertigo no chest pains shortness of breath no head trauma no vomiting no fever dysuria no rash other systems negative Past History Travel History Traveled to [place] past 21 day No Medical History Blood Transfusion Hx: Yes Neurological: NONE EENT: hearing loss Cardiovascular: hypertension, hyperlipidemia, myocardial infarction Respiratory: obstructive sleep apnea Gastrointestinal: GERD Hepatic: NONE Renal: NONE Musculoskeletal: gout Psychiatric: NONE Endocrine: diabetes Blood Disorders: NONE Cancer(s): prostate cancer DADO OPERATOR/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 Home Smoking Status: Never Smoked ETOH Use: occasional use Exam & Diagnostic Data Vital Signs and I&O Vital Signs Date Time Temp Pulse Resp B/P B/P Pulse O2 O2 Flow FiO2 Mean Ox Delivery Rate 09/06 1415 94 Nasal 50% Cannula 09/06 1410 133 95 09/06 1200 BIPAP 40% 09/06 1123 140 98 09/06 1109 BIPAP 40% 09/06 1107 98 BIPAP 40% 09/06 0820 140 98 09/06 0800 98 Non 100% ReBreather 09/06 0800 98.0 153 28 112/68 98 Non 100% ReBreather 09/06 0330 95 CPAP 4.0L 09/06 0204 94 Nasal 4.0L Cannula 09/06 0122 171 108/75 09/06 0100 97.9 155 27 108/72 92 Nasal 3.0L Cannula 09/06 0029 149 18 120/67 95 Nasal 2.0L Cannula 09/06 0023 144 26 120/67 09/05 2238 99 18 128/62 96 Nasal 2.0L Cannula 09/05 1943 96 20 121/65 Nasal 2.0L Cannula 09/05 1836 Room Air 09/05 1835 96.0 104 22 126/56 90 Room Air Intake & Output 09/06 1600 09/06 0800 09/06 0000 Intake Total 1599 30 1000 Output Total 90 125 Balance 1509 -95 1000 Intake, IV 1599 30 1000 Intake, Oral 0 0 Number 1 1 Bowel Movements Output, Urine 90 125 Patient 253 lb 250 lb Weight Weight Bed scale Estimated Measurement Method Confused/dysarthric no carotid bruits heart sounds normal distal pulse left foot intact; rt foot swolen and warm EOM full, clement intact, pupis reactive, fundi not visalized, no facial weakness , no facial sensory loss tongue midline, hearing grossly intact normal tone. strenght upper extremities; difficut to assess lower extremities but movement equal mild distal sensory oss feet deeptendon refex hypoactive coord upper extremities normal on bed rest; gait not assesses Last 48 Hours of Lab Results: Laboratory Tests 09/06 09/06 09/06 09/06 09/06 1430 1130 0900 0840 0825 Blood Gas pH (7.35 - 7.45 PH) 7.34 L pCO2 (35 - 45 TORR) 31 L pO2 (80 - 100 TORR) 195 H HCO3 (21 - 28 MEQ/L) 16 L ABG O2 Sat (Measured) (>96.0 %) 99.0 Carboxyhemoglobin (1.5 - 5.0 %) 0.2 L O2 Concentration % 50% Respiration Rate (BPM) 22 O2 Delivery Method V60 Vent Mode ST Expiratory Pressure (CM H2O P) 4 Inspiratory Pressure (CM H2O P) 16 Chemistry Lactic Acid (0.7 - 2.1 mmol/L) 3.2 H 3.6 H 5.3 H Ammonia (9 - 30 umol/L) < 9 L Miscellaneous Phlebotomy Draw Site LEFT RADIAL Toxicology Urine Opiates Screen (>2000 NG/ML) < 100 Methadone Screen (>300 NG/ML) 44 Barbiturate Screen (>200 NG/ML) < 60 Ur Phencyclidine Scrn (>25 NG/ML) < 6.00 Amphetamines Screen (>1000 NG/ML) < 100 U Benzodiazepines Scrn (>200 NG/ML) < 85 Urine Cocaine Screen (>300 NG/ML) < 50 Urine Cannabis Screen (>50 NG/ML) < 5.00 Urines Ur Random Creatinine (mg/dL) 103.3 Ur Random Sodium (30 - 90 mmol/L) 24 L Ur Random Potassium (mmol/L) 57.4 Fraction Sodium Excret (<1% %) 0.5 09/06 09/06 0825 0610 Chemistry Sodium (137 - 145 mmol/L) 142 143 Potassium (3.5 - 5.1 mmol/L) 4.2 3.7 Chloride (98 - 107 mmol/L) 101 103 Carbon Dioxide (22 - 30 mmol/L) 19 L 17 L Anion Gap (5 - 16) 21 H 23 H BUN (9 - 20 mg/dL) 67 H 65 H Creatinine (0.7 - 1.2 mg/dL) 3.0 H 2.8 H Estimated GFR (>60 ml/min) 21 L 23 L Glucose (65 - 99 mg/dL) 166 H 147 H Hemoglobin A1c (4.2 - 5.8 %) Pending Serum Osmolality (285 - 295 MOSM/KG) 326 H Calcium (8.4 - 10.2 mg/dL) 8.4 8.4 Phosphorus (2.5 - 4.5 mg/dL) 6.4 H 5.1 H Magnesium (1.6 - 2.3 mg/dL) 2.0 1.9 Total Bilirubin (0.2 - 1.3 mg/dL) 5.3 H 5.3 H AST (17 - 59 U/L) 245 H 237 H ALT (21 - 72 U/L) 119 H 111 H Troponin I (<0.11 ng/ml) 0.09 [id number] Pept (<125 pg/mL) 8990 H Albumin (3.5 - 5.0 g/dL) 3.0 L 2.8 L Triglycerides (<150 mg/dL) 439 H Cholesterol (< 200 MG/DL) 78 LDL Cholesterol Direct (<100 mg/dL) < 30.00 LDL Cholesterol, Calc (65 - 129 mg/dL) ND HDL Cholesterol (40 - 60 mg/dL) 14 L Cholesterol/HDL Ratio (0.00 - 4.88 %) 5.6 H Hematology CBC w Diff MAN DIFF ORDERED MAN DIFF ORDERED WBC (4.8 - 10.8 /CUMM) 13.3 H 15.1 H RBC (4.70 - 6.10 /CUMM) 4.74 4.71 Hgb (14.0 - 18.0 G/DL) 12.4 L 12.5 L Hct (42 - 52 %) 39.0 L 38.6 L MCV (80.0 - 94.0 FL) 82.3 81.9 MCH (27.0 - 31.0 PG) 26.1 L 26.5 L MCHC (33.0 - 37.0 G/DL) 31.7 L 32.3 L RDW (11.5 - 14.5 %) 19.8 H 19.7 H Plt Count (130 - 400 /CUMM) 47 L 47 L MPV (7.4 - 10.4 FL) 10.3 11.1 H Gran % (42.2 - 75.2 %) 87.6 H 87.8 H Lymphocytes % (20.5 - 51.1 %) 2.5 L 2.6 L Monocytes % (1.7 - 9.3 %) 9.9 H 9.6 H Eosinophils % (0 - 5 %) 0 0 Basophils % (0.0 - 2.0 %) 0 0 Absolute Granulocytes (1.4 - 6.5 /CUMM) 11.6 H 13.3 H Segmented Neutrophils (42.2 - 75.2 %) 58 61 Band Neutrophils (0.0 - 5.0 %) 29 H 26 H Absolute Lymphocytes (1.2 - 3.4 /CUMM) 0.3 L 0.4 L Lymphocytes (20.5 - 51.1 %) 3 L 4 L Monocytes (1.7 - 9.3 %) 10 H 9 Absolute Monocytes (0.10 - 0.60 /CUMM) 1.3 H 1.4 H Absolute Eosinophils (0.0 - 0.7 /CUMM) 0 0 Absolute Basophils (0.0 - 0.2 /CUMM) 0 0 Platelet Estimate (ADEQUATE) DECREASED DECREASED Polychromasia 1+ 1+ Anisocytosis 1+ 1+ 09/06 09/06 0600 0500 Blood Gas pH (7.35 - 7.45 PH) 7.34 L pCO2 (35 - 45 TORR) 32 L pO2 (80 - 100 TORR) 47 *L HCO3 (21 - 28 MEQ/L) 17 L ABG O2 Sat (Measured) (>96.0 %) 79.0 L P-50 (Temp Corrected) Y Carboxyhemoglobin (1.5 - 5.0 %) 0.7 L O2 Concentration % 4 LPM Temperature (97.0 - 100.0 FARH) 97.2 O2 Delivery Method N/C Chemistry Troponin I Cancelled Miscellaneous Phlebotomy Draw Site LEFT RADIAL 09/06 09/06 0200 0129 Chemistry Troponin I (<0.11 ng/ml) 0.10 Urines Urinalysis HEAVY H Urine Color (YEL,AMB,STR) BLDY H Urine Clarity (CLEAR) TURBD H Urine pH (5.0 - 8.0) 5.5 Ur Specific Shell (1.001 - 1.035) 1.020 Urine Protein (NEG,<30 MG/DL) 100 H Urine Ketones (NEG) NEG Urine Nitrite (NEG) POS H Urine Bilirubin (NEG) NEG Urine Urobilinogen (0.1 - 1.0 EU/dl) 1.0 Ur Leukocyte Esterase (NEG) NEG Ur Microscopic SEDIMENT EXAMINED Urine RBC (0 - 5 /HPF) PACKD H Urine WBC (0 - 2 /HPF) 10-15 H Ur Epithelial Cells (NONE,FEW) FEW Urine Bacteria (NEG/NONE) MOD H Granular Casts (NONE /LPF) 5-10 H Urine Hemoglobin (NEG) LARGE H Urine Glucose (N MG/DL) 250 H 09/05 1810 Chemistry Sodium (137 - 145 mmol/L) 140 Potassium (3.5 - 5.1 mmol/L) 3.8 Chloride (98 - 107 mmol/L) 99 Carbon Dioxide (22 - 30 mmol/L) 18 L Anion Gap (5 - 16) 22 H BUN (9 - 20 mg/dL) 58 H Creatinine (0.7 - 1.2 mg/dL) 2.3 H Estimated GFR (>60 ml/min) 29 L BUN/Creatinine Ratio (7 - 25 %) 25.2 H Glucose (65 - 99 mg/dL) 173 H Calcium (8.4 - 10.2 mg/dL) 8.8 Total Bilirubin (0.2 - 1.3 mg/dL) 4.3 H AST (17 - 59 U/L) 193 H ALT (21 - 72 U/L) 105 H Alkaline Phosphatase (< 127 U/L) 188 H Troponin I (<0.11 ng/ml) 0.09 Total Protein (6.3 - 8.2 g/dL) 6.5 Albumin (3.5 - 5.0 g/dL) 3.1 L Globulin (1.9 - 4.2 gm/dL) 3.4 Albumin/Globulin Ratio (1.1 - 2.2 %) 0.9 L Coagulation PT (9.4 - 12.5 SEC) 15.7 H INR (0.90 - 1.17) 1.44 H APTT (25 - 37 SEC) 35 D-Dimer High Sensitivty (0 - 243 ng/ml) 6199 H Hematology CBC w Diff MAN DIFF ORDERED WBC (4.8 - 10.8 /CUMM) 12.8 H RBC (4.70 - 6.10 /CUMM) 4.76 Hgb (14.0 - 18.0 G/DL) 12.6 L Hct (42 - 52 %) 38.5 L MCV (80.0 - 94.0 FL) 81.0 MCH (27.0 - 31.0 PG) 26.5 L MCHC (33.0 - 37.0 G/DL) 32.7 L RDW (11.5 - 14.5 %) 19.2 H Plt Count (130 - 400 /CUMM) 73 L MPV (7.4 - 10.4 FL) 11.1 H Gran % (42.2 - 75.2 %) 93.2 H Lymphocytes % (20.5 - 51.1 %) 1.7 L Monocytes % (1.7 - 9.3 %) 5.0 Eosinophils % (0 - 5 %) 0.1 Basophils % (0.0 - 2.0 %) 0 Absolute Granulocytes (1.4 - 6.5 /CUMM) 11.9 H Segmented Neutrophils (42.2 - 75.2 %) 78 H Band Neutrophils (0.0 - 5.0 %) 21 H Absolute Lymphocytes (1.2 - 3.4 /CUMM) 0.2 L Lymphocytes (20.5 - 51.1 %) 1 L Absolute Monocytes (0.10 - 0.60 /CUMM) 0.6 Absolute Eosinophils (0.0 - 0.7 /CUMM) 0 Absolute Basophils (0.0 - 0.2 /CUMM) 0 Platelet Estimate (ADEQUATE) VERIFIED BY SMEAR Anisocytosis 1+ Other Body Source Fld Total RBCs Counted (%) 100 Imaging/Other Studies: CT BRAIN: There is no pathologic enhancement intracranially. There is no intracranial hemorrhage, hydrocephalus, extra-axial surface collection, midline shift, or other herniation pattern. [place] to white matter differentiation is diffusely maintained without evidence of an evolved acute territorial infarct. The basilar cisterns are preserved. No significant soft tissue abnormality. No acute osseous abnormality. The paranasal sinuses and the mastoid air cells are well-aerated. Assessment/Plan Assessment: Dysarthria confusion congestive heart failure A.fib respiratory distress possible CVA Recommendations: repeat CT 3-4 days patient has ICD and likley not MRI candidate If anticoagulation considered given A.Fib, would start 3 days following onset of symptoms Consult Acknowledgment - Thank you for your consult request.
[2017-09-06 21:00] LABS: ABSOLUTE BASOPHIL COUNT 0 /CUMM (0.0-0.2); ABSOLUTE EOSINOPHIL COUNT 0 /CUMM (0.0-0.7); ABSOLUTE GRANULOCYTE CT 9.6 /CUMM (1.4-6.5); ABSOLUTE LYMPH COUNT 0.4 /CUMM (1.2-3.4); ABSOLUTE MONOCYTE COUNT 1.4 /CUMM (0.10-0.60); BASOPHIL % 0 % (0.0-2.0); EOSINOPHIL % 0.1 % (0-5); GRANULOCYTE % 83.9 % (42.2-75.2); HEMATOCRIT 35.8 % (42-52); MEAN CORPUSCULAR HGB 26.4 PG (27.0-31.0); MEAN CORPUSCULAR HGB CONC 32.6 G/DL (33.0-37.0); MEAN CORPUSCULAR VOLUME 80.8 FL (80.0-94.0); MEAN PLATELET VOLUME 10.2 FL (7.4-10.4); RBC DISTRIBUTION WIDTH 19.3 % (11.5-14.5); RED BLOOD CELL CT 4.44 /CUMM (4.70-6.10); WHITE BLOOD CELL COUNT 11.5 /CUMM (4.8-10.8)
[2017-09-06 21:01] LABS: PLATELET COUNT 36 /CUMM (130-400)
[2017-09-07] VITALS: BP 124/60
[2017-09-07 02:42] LABS: ABSOLUTE BASOPHIL COUNT 0 /CUMM (0.0-0.2); ABSOLUTE EOSINOPHIL COUNT 0.1 /CUMM (0.0-0.7); ABSOLUTE GRANULOCYTE CT 8.8 /CUMM (1.4-6.5); ABSOLUTE LYMPH COUNT 0.6 /CUMM (1.2-3.4); ABSOLUTE MONOCYTE COUNT 1.5 /CUMM (0.10-0.60); BASOPHIL % 0 % (0.0-2.0); EOSINOPHIL % 0.5 % (0-5); GRANULOCYTE % 80.6 % (42.2-75.2); HEMATOCRIT 35.1 % (42-52); MEAN CORPUSCULAR HGB 26.7 PG (27.0-31.0); MEAN CORPUSCULAR HGB CONC 33.2 G/DL (33.0-37.0); MEAN CORPUSCULAR VOLUME 80.3 FL (80.0-94.0); PLATELET COUNT 32 /CUMM (130-400); RBC DISTRIBUTION WIDTH 19.3 % (11.5-14.5); RED BLOOD CELL CT 4.37 /CUMM (4.70-6.10); WHITE BLOOD CELL COUNT 10.9 /CUMM (4.8-10.8)
[2017-09-07 08:00] VITALS: BP 132/64
--- NOTE | 2017-09-07 08:03 | PN- Resident CRCU ---
Subjective HPI/CRCU Issues: Ischemic CVA DEMETRIO Acute hypoxemic respiratory failure A.fib Elevated troponin Patient seen and examined. Reports feeling okay. Has no complaints. 24 Hour Events: Patient had been in atrial fibrilliation on admisison. This morning he went into SVT. Subsequently afterwards, he converted to NSR. Blood cultures show growth of Beta Strep B Objective Vital Signs & I&O Last 8 Hrs of Vitals and I&O: . Exam General Appearance: well developed/nourished, alert, awake, mild distress Head: atraumatic, normal appearance Respiratory: normal breath sounds, chest non-tender Cardiovascular: regular rate/rhythm Gastrointestinal: soft, non-tender Extremities: edema of right foot, strength 4/5 in RLE Cranial Nerves: normal hearing, normal speech, PERRL, CN 3-12 grossly intact Skin: intact, normal color, warm/dry Skin Temp/Moisture Exam: Warm/Dry Sepsis Skin Exam (color): Normal for Ethnicity Current Medications: Current Medications Sig/Jasvir Start time Last Medication Dose Route Stop Time Status Admin Acetaminophen 650 MG Q6P PRN 09/06 0345 AC PO Acetaminophen 1,000 MG Q6P PRN 09/06 0345 AC 09/06 IV 0359 Albuterol Sulfate 3 ML Q4P PRN 09/06 1115 AC INH Ampicillin Sodium/ 3,000 MG Q6H 09/06 1545 AC 09/07 Sulbactam Sodium IV 0957 Sodium Chloride 100 ML Ampicillin Sodium/ 3,000 MG Q6H 09/06 0900 DC 09/06 Sulbactam Sodium IV 0926 Sodium Chloride 100 ML Aspirin 300 MG ONCE ONE 09/06 2230 DC 09/06 GA 09/06 2231 2356 Aspirin Buffered 81 MG DAILY 09/06 0900 AC PO Ceftriaxone Sodium 1,000 MG DAILY 09/06 1541 DC IV Diltiazem HCl 125 MG Q8H 09/07 1000 r 09/07 Dextrose/Water 100 ML IV 1002 Diltiazem HCl 125 MG Q12H 09/06 1500 DC 09/06 Dextrose/Water 100 ML IV 09/07 0959 2205 Diltiazem HCl 125 MG Q24H 09/06 0230 DC 09/06 Dextrose/Water 100 ML IV 09/06 1459 0329 Doxycycline Hyclate 100 MG BID 09/06 1226 AC PO Enoxaparin Sodium 40 MG DAILY 09/06 0900 AC SC Folic Acid 1 MG DAILY 09/07 1023 UNVr PO Insulin Aspart 0 TIDAC 09/06 0800 DC SC Insulin Human Regular 4 UNITS .STK-MED ONE 09/07 0054 DC IV 09/07 0055 Insulin Human Regular 0 Q6 09/06 1223 AC 09/07 SC 0733 Melatonin 5 MG .STK-MED ONE 09/06 2310 DC PO 09/06 2311 Multivitamins 1 TAB DAILY 09/07 1023 UNVr PO Sodium Chloride 1,000 ML Q10H 09/06 0930 AC 09/06 IV 2159 Thiamine HCl 50 MG DAILY 09/07 1023 UNVr PO Impression/Plan Impression/Problem List Impression: 65 y/o M with PMH of DM, Gout, [place] s/p CABG on aspirin/plavix, hypertension and hyperlipidemia was brought to the ED by his after 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 As per the , pt had sudden onset dysarthria, difficulty swallowing and L nasolabial fold drooping. On admission pertinent labs showed leukocytosis (12.8), thrombocytopenia (73), BUN/CR (58/2.3 ). EKG showed a-fib with RVR on admission with HR in the 180s, and pt was put on cardizem drip; he was admitted to the ICU for further management. Assessment: 1. Acute Hypoxemic Respiratory Failure 2. Atrial Fibrilliation with RVR - now in NSR 3. DEMETRIO 4. Possible CVA 5. Strep B bacteremia 6. Elevated Troponins 7. Elevated ESR 8. Thrombocytopenia Plan: * Continue monitoring in ICU for now. * Continue supplemental oxygen to maintain target sats >92%. Currently on 50% high flow O2. * Currently on IV Unasyn and Doxycyline. Would continue for now. * All 4 bottles of blood cultures are growing Group B strep * Lower IV Cardizem to 12.5mg/hr * Await swallow eval. * If patient passes his swallow eval, he can be started on oral Amiodarone to maintain him in sinus rhythm otherwise, may need to be started on IV Amiodarone drip. * TTE - pending. May need further assessment with JESUS for endocarditis if TTE is negative. * Will hold off on AC due to low platelets. * Troponins have trended down. * His Head/Neck CTA showed no signs of ischemic infact. * Repeat head CT in am to r/o hemorrhagic conversion. * An MRI will most likely not be possible due to the patient's AICD * His DEMETRIO has worsened. Likely secondary to contrast induced nephropathy * Nephrology consult for DEMETRIO. * Continue IVF @50ml/hr * It is unclear why his ESR is elevated. * Monitor thrombocytopenia. This could have worsened in the setting of infection * His Abd U/S showed findings consistent with fatty infiltration or hepatocellular disease. His elevated LFTs is likely secondary due to his underlying liver disease. * Diet: NPO for now * DVT Prophylaxis: ALPS only * Code: Full Code Problem List: 1. DEMETRIO (acute kidney injury) Pain Ratin Tomorrow's Labs & Rationales: CBC, ICU Bundle Plan DVT/Prophylaxis: mechanical
--- NOTE | 2017-09-07 08:48 | PN- CRCU ---
Subjective HPI/Critical Care Issues: The patient is much more awake and alert. He is intermittently confused however. The patient went into SVT this morning, however he is now in sinus rhythm but tachycardic. The patient remains on high flow oxygen with saturations in the high 90s on 50%. His blood pressure is stable. He is afebrile. She continues to have good urine output. He remains on Cardizem drip at 15 mg/h. He also remains on normal saline at 100 mL/h. The patient denies any increased shortness of breath, cough, chest congestion, fever, chills or sputum production. Objective Current Medications: Current Medications Sig/Jasvir Start time Last Medication Dose Route Stop Time Status Admin Acetaminophen 650 MG Q6P PRN 09/06 0345 AC PO Acetaminophen 1,000 MG Q6P PRN 09/06 0345 AC 09/06 IV 0359 Albuterol Sulfate 3 ML Q4P PRN 09/06 1115 AC INH Ampicillin Sodium/ 3,000 MG Q6H 09/06 1545 AC 09/07 Sulbactam Sodium IV 0411 Sodium Chloride 100 ML Ampicillin Sodium/ 3,000 MG Q6H 09/06 0900 DC 09/06 Sulbactam Sodium IV 0926 Sodium Chloride 100 ML Aspirin 300 MG ONCE ONE 09/06 2230 DC 09/06 CA 09/06 2231 2356 Aspirin Buffered 81 MG DAILY 09/06 0900 AC PO Ceftriaxone Sodium 1,000 MG DAILY 09/06 1541 DC IV Diltiazem HCl 125 MG Q12H 09/06 1500 AC 09/06 Dextrose/Water 100 ML IV 2205 Diltiazem HCl 125 MG Q24H 09/06 0230 DC 09/06 Dextrose/Water 100 ML IV 09/06 1459 0329 Doxycycline Hyclate 100 MG BID 09/06 1226 AC PO Enoxaparin Sodium 40 MG DAILY 09/06 0900 AC SC Insulin Aspart 0 TIDAC 09/06 0800 DC SC Insulin Human Regular 0 Q6 09/06 1223 AC 09/07 SC 0733 Melatonin 5 MG .STK-MED ONE 09/06 2310 DC PO 09/06 2311 Sodium Chloride 1,000 ML Q10H 09/06 0930 AC 09/06 IV 2159 Sodium Chloride 500 ML BOLUS ONE 09/06 0830 DC 09/06 IV 09/06 0929 0849 Vital Signs & I&O Last 24 Hrs of Vitals and I&O: Vital Signs Date Time Temp Pulse Resp B/P B/P Pulse O2 O2 Flow FiO2 Mean Ox Delivery Rate 09/07 0400 96 Nasal 50% Cannula 09/07 0202 94 Nasal 50% Cannula 09/07 0000 95 Nasal Cannula 09/07 0000 97.3 118 34 124/60 95 Nasal Cannula 09/06 2133 92 Nasal 50% Cannula 09/06 2000 94 Nasal 50% Cannula 09/06 1600 93 Nasal 55% Cannula 09/06 1600 98.1 124 28 142/70 93 Nasal 55% Cannula 09/06 1415 94 Nasal 50% Cannula 09/06 1410 133 95 09/06 1200 BIPAP 40% 09/06 1123 140 98 09/06 1109 BIPAP 40% 09/06 1107 98 BIPAP 40% Intake & Output 09/07 1600 09/07 0800 09/07 0000 Intake Total 1020 925 Output Total 620 500 Balance 400 425 Intake, IV 1020 925 Intake, Oral 0 Number 3 Bowel Movements Output, Stool 200 Output, Urine 620 300 Physical Exam General Appearance: alert, awake, anxious, more comfortable Head: atraumatic, normal appearance Eyes: Bilateral: normal appearance, PERRL, EOMI. Neck: normal inspection, supple Respiratory: chest non-tender, rhonchi, respiratory distress Cardiovascular: S1 and S2 heard Gastrointestinal: normal bowel sounds, soft, non-tender, no organomegaly Extremities: normal inspection, normal capillary refill Neurologic/Psych: no motor/sensory deficits, awake, oriented to self and place, not time, dysarthria Cranial Nerves: normal hearing, normal speech Skin: intact, normal color Results Last 24 Hrs of Lab Results: Laboratory Tests 09/07/17 0500: Lactic Acid 1.9 09/07/17 0500: Sodium Cancelled, Potassium Cancelled, Chloride Cancelled, Carbon Dioxide Cancelled, Anion Gap Cancelled, BUN Cancelled, Creatinine Cancelled, Glucose Cancelled, Calcium Cancelled, Phosphorus Cancelled, Magnesium Cancelled, Total Bilirubin Cancelled, AST Cancelled, ALT Cancelled, Albumin Cancelled 09/07/17 0200: Anion Gap 19 H, Estimated GFR 17 L, Glucose 185 H, Calcium 8.2 L, Phosphorus 4.6 H, Magnesium 2.5 H, Total Bilirubin 4.4 H, AST 197 H, ALT 102 H, Troponin I 0.41 *H, Albumin 2.5 L, CBC w Diff MAN DIFF ORDERED, RBC 4.37 L, MCV 80.3, MCH 26.7 L, MCHC 33.2, RDW 19.3 H, MPV 10.0, Gran % 80.6 H, Lymphocytes % 5.5 L, Monocytes % 13.4 H, Eosinophils % 0.5, Basophils % 0, Absolute Granulocytes 8.8 H, Segmented Neutrophils 69, Band Neutrophils 12 H, Absolute Lymphocytes 0.6 L, Lymphocytes 11 L, Monocytes 4, Absolute Monocytes 1.5 H, Absolute Eosinophils 0.1, Basophils 1, Absolute Basophils 0, Nucleated RBCs 1 H, Platelet Estimate DECREASED, Normocytic RBCs VERIFIED, Normochromic RBCs VERIFIED, ESR Westergren 116 H 09/06/17 2130: Lactic Acid Cancelled 09/06/17 1950: Anion Gap 19 H, Estimated GFR 19 L, Glucose 189 H, Calcium 7.9 L, Phosphorus 5.1 H, Magnesium 2.3, Total Bilirubin 4.6 H, AST 207 H, ALT 110 H, Troponin I 0.39 *H, Albumin 2.6 L, CBC w Diff NO MAN DIFF REQ, RBC 4.44 L, MCV 80.8, MCH 26.4 L, MCHC 32.6 L, RDW 19.3 H, MPV 10.2, Gran % 83.9 H, Lymphocytes % 3.8 L, Monocytes % 12.2 H, Eosinophils % 0.1, Basophils % 0, Absolute Granulocytes 9.6 H, Absolute Lymphocytes 0.4 L, Absolute Monocytes 1.4 H, Absolute Eosinophils 0, Absolute Basophils 0 09/06/17 1820: Lactic Acid 2.8 H 09/06/17 1430: Lactic Acid 3.2 H 09/06/17 1130: Lactic Acid 3.6 H 09/06/17 0900: pH 7.34 L, pCO2 31 L, pO2 195 H, HCO3 16 L, ABG O2 Sat (Measured) 99.0, Carboxyhemoglobin 0.2 L, O2 Concentration % 50%, Respiration Rate 22, O2 Delivery Method V60, Vent Mode ST, Expiratory Pressure 4, Inspiratory Pressure 16, Phlebotomy Draw Site LEFT RADIAL 09/06/17 0840: Urine Opiates Screen < 100, Methadone Screen 44, Barbiturate Screen < 60, Ur Phencyclidine Scrn < 6.00, Amphetamines Screen < 100, U Benzodiazepines Scrn < 85, Urine Cocaine Screen < 50, Urine Cannabis Screen < 5.00, Ur Random Creatinine 103.3, Ur Random Sodium 24 L, Ur Random Potassium 57.4, Fraction Sodium Excret 0.5 Last 24 Hrs of Micro Results: Blood cultures positive for GPC in both sets. Diagnostic Data CXR Findings: 1. There is cardiomegaly and mild pulmonary vascular congestion. No overt pulmonary edema is seen. 2. Lung volumes are low, with crowding of bronchovascular and pulmonary parenchymal markings. 3. There is stable mild elevation of the right hemidiaphragm. US Findings: 1. There is hepatosplenomegaly. 2. There is heterogeneous hepatic echotexture, consistent with fatty infiltration or hepatocellular disease. Lobulated contour favors cirrhosis. Please correlate clinically. No focal hepatic mass or intrahepatic biliary dilatation is seen. 3. The gallbladder is surgically absent. Radiology Findings: Dopplers: Normal triplex scan without evidence of deep venous thrombosis involving the lower extremities. Impression/Plan Impression/Plan Impression/Plan: 1. Acute hypoxemic respiratory failure in the setting of possible fluid overload versus aspiration pneumonia/pneumonitis. Blood cultures are positive for GPC's in both sets. Endocarditis? 2. Possible anaplasmosis? 3. Acute on chronic kidney injury. 4. Atrial fibrillation with rapid ventricular response -on diltiazem drip. 5. New onset ischemic CVA. 6. Positive troponin, possibly suggestive of demand ischemia. 7. Elevated bilirubin and transaminitis, may be related to vascular congestion. Abdominal IS suggests the possibility of cirrhosis. 8. Elevated anion gap, increasing leukocytosis with bandemia which may be related to sepsis. Source remains unclear as of yet. 9. Elevated ESR - ? etiology. Possibly related to infection? Gout? Recommendations: * Continue high flow oxygen to maintain saturations greater than 92%. * Continue normal saline at 100 mL/h. * Consult nephrology for acute on chronic renal failure. * Follow-up cultures. * Appreciate ID input. Will image foot to see if this could be infectious source. * Continue with nebs/TRC. * Continue insulin sliding scale. * Hold off heparin for now. * Check CT scan of the head tomorrow morning. * Will continue to follow neurology recommendations, appreciate input. * Will also continue to follow cardiology recommendations, appreciate input. * Maintain the patient on aspiration precautions. * Advance diet if able. * Add multivitamin, thiamine and folate. * Please attempt to obtain a better substance use history, particularly focusing on alcohol. * Hold off on heparin drip for now as per neurology. * DVT prophylaxis at all times. * Continue to monitor in the critical care unit.
--- NOTE | 2017-09-07 14:00 | Cons- Infect Disease ---
General Information and HPI Consulting Request Date of Consult: 09/07/17 Requested By: Jose Teixeira MD Reason for Consult: Positive blood cultures for Group B strep Source of Information: patient, old records Exam Limitations: confusion History of Present Illness: This is a 61-year-old man with a history of diabetes, hypertension, coronary artery disease, status post OH and CABG, status post AICD/pacemaker, prostate cancer, status post TURP, cirrhosis of unclear etiology, recurrent cellulitis of the left thigh, status post right great toe debridement at some point in the past, last hospitalized 5 months prior to admission with a GI bleed, with an endoscopy revealing a prepyloric ulcer and Grade 1 esophageal varices, apparently begun on Colchicine several days prior to admission by his inside meter tester for a painful right foot, admitted on September 05 with slurred speech and a left facial droop superimposed on several days of increasing fatigue and poor p.o. intake. On admission he was afebrile. After several hours in the ER he became tachycardic and short of breath and was noted to be in atrial fibrillation. Laboratory data revealed a white blood cell count of 13,000, with 78 segs and 21 bands, platelets 73,000, BUN/creatinine 58 and 2.3, bilirubin 4.3, alkaline phosphatase 188, AST/ALT 193 and 105, INR 1.44/PTT 35. Urinalysis packed RBC/10 -[address] of the head was negative for any acute process. CTA of the head and neck was negative. Chest x-ray revealed cardiomegaly with pulmonary vascular congestion and mild bibasilar atelectasis. He was admitted to the ICU. On September 06 blood cultures 2 were reported positive for gram-positive cocci in chains and he was begun on Unasyn. On September 06 his peripheral smear was noted to have possible inclusions in the white blood cells and Doxycycline was ordered, though it does not appear that it has been given. He has been afebrile since admission. Since admission, however, his respiratory status has worsened, requiring high flow oxygen, his renal function and thrombocytopenia have worsened, and he has developed increased troponins. At present he denies shortness of breath or chest pain. Allergies/Medications Allergies: Coded Allergies: No Known Allergies (02/19/16) Home Med List: Aspirin (Aspirin*) 81 MG TAB.CHEW 1 TAB PO DAILY HEART HEALTH (Reported) Atorvastatin Calcium 80 MG TABLET 1 TAB PO 1800 CHOLESTEROL (Reported) Bromocriptine Mesylate (Cycloset) 0.8 MG TABLET 1 TAB PO AD DM (Reported) Clopidogrel Bisulfate (Plavix) 75 MG TABLET 1 TAB PO DAILY HEART Please take as prescribed. Colchicine 0.6 MG TABLET 1 TAB PO BID GOUT (Reported) Empagliflozin (Jardiance) 25 MG TABLET 1 TAB PO DAILY DIABETES (Reported) Famotidine 20 MG TABLET 1 TAB PO BID GI (Reported) Insulin Aspart, Recombinant (Novolog Flexpen) 100 UNIT/ML INSULN.PEN DM ( Reported) Insulin Glargine,Hum.rec.anlog (Basaglar Kwikpen U-100) 100 UNIT/ML (3 ML) INSULN.PEN 20 UNITS SC QAM DM (Reported) Magnesium Oxide 400 MG TABLET 1 TAB PO BID SUPPLEMENT (Reported) Melatonin 3 MG TABLET 2 TAB PO QPM SLEEP (Reported) Metformin HCl 1,000 MG TABLET 1 TAB PO BID DIABETES (Reported) Metoprolol Tartrate 50 MG TABLET 1 TAB PO BID HEART/BP (Reported) Pantoprazole Sodium (Protonix) 40 MG TABLET.DR 1 TAB PO BID ULCER Please take as prescribed. 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 Home Smoking Status: Never Smoked ETOH Use: occasional use Review of Systems Review of Systems All Other Systems: Reviewed and Negative Exam & Diagnostic Data Last 24 Hrs of Vital Signs/I&O Vital Signs Date Time Temp Pulse Resp B/P B/P Pulse O2 O2 Flow FiO2 Mean Ox Delivery Rate 09/07 1200 95 Nasal 50% Cannula 09/07 0800 96 Nasal 50% Cannula 09/07 0800 97.8 126 24 132/64 96 Nasal 50% Cannula 09/07 0400 96 Nasal 50% Cannula 09/07 0202 94 Nasal 50% Cannula 09/07 0000 95 Nasal Cannula 09/07 0000 97.3 118 34 124/60 95 Nasal Cannula 09/06 2133 92 Nasal 50% Cannula 09/06 2000 94 Nasal 50% Cannula 09/06 1600 93 Nasal 55% Cannula 09/06 1600 98.1 124 28 142/70 93 Nasal 55% Cannula 09/06 1415 94 Nasal 50% Cannula 09/06 1410 133 95 Intake & Output 09/07 1600 09/07 0800 09/07 0000 Intake Total 1020 925 Output Total 620 500 Balance 400 425 Intake, IV 1020 925 Intake, Oral 0 Number 3 Bowel Movements Output, Stool 200 Output, Urine 620 300 Physical Exam Other Physical Findings: He is awake and alert in mild respiratory distress, currently on high flow oxygen. His speech is clear with no evidence of dysarthria. He is afebrile. Skin reveals no rash. HEENT exam dry oral mucosa. Neck is supple with no adenopathy. Chest AICD/pacemaker in the left upper chest with no inflammation at the site. Lungs bibasilar crackles. Heart regular rhythm with a 2/6 systolic ejection murmur. Abdomen is soft, questionable tenderness on palpation over the lower abdomen, with no guarding or rebound, with positive bowel sounds. Back no CVA tenderness. Extremities swelling and tenderness over the dorsum of the right foot, with no erythema or open wound; pulses 2+ and equal. Neuro is without focality, with no evidence of any facial droop or focal weakness.. Barber catheter is in place. Last 24 Hours of Lab Results: Laboratory Tests 09/07 09/07 09/07 0830 0500 0500 Chemistry Sodium Cancelled Potassium Cancelled Chloride Cancelled Carbon Dioxide Cancelled Anion Gap Cancelled BUN Cancelled Creatinine Cancelled Glucose Cancelled Lactic Acid (0.7 - 2.1 mmol/L) 1.9 Calcium Cancelled Phosphorus Cancelled Magnesium Cancelled Total Bilirubin Cancelled AST Cancelled ALT Cancelled Troponin I (<0.11 ng/ml) 0.35 *H Albumin Cancelled 09/07 09/06 0200 2130 Chemistry Sodium (137 - 145 mmol/L) 143 Potassium (3.5 - 5.1 mmol/L) 3.9 Chloride (98 - 107 mmol/L) 106 Carbon Dioxide (22 - 30 mmol/L) 17 L Anion Gap (5 - 16) 19 H BUN (9 - 20 mg/dL) 88 H Creatinine (0.7 - 1.2 mg/dL) 3.6 H Estimated GFR (>60 ml/min) 17 L Glucose (65 - 99 mg/dL) 185 H Lactic Acid Cancelled Calcium (8.4 - 10.2 mg/dL) 8.2 L Phosphorus (2.5 - 4.5 mg/dL) 4.6 H Magnesium (1.6 - 2.3 mg/dL) 2.5 H Total Bilirubin (0.2 - 1.3 mg/dL) 4.4 H AST (17 - 59 U/L) 197 H ALT (21 - 72 U/L) 102 H Troponin I (<0.11 ng/ml) 0.41 *H Albumin (3.5 - 5.0 g/dL) 2.5 L Hematology CBC w Diff MAN DIFF ORDERED WBC (4.8 - 10.8 /CUMM) 10.9 H RBC (4.70 - 6.10 /CUMM) 4.37 L Hgb (14.0 - 18.0 G/DL) 11.7 L Hct (42 - 52 %) 35.1 L MCV (80.0 - 94.0 FL) 80.3 MCH (27.0 - 31.0 PG) 26.7 L MCHC (33.0 - 37.0 G/DL) 33.2 RDW (11.5 - 14.5 %) 19.3 H Plt Count (130 - 400 /CUMM) 32 L MPV (7.4 - 10.4 FL) 10.0 Gran % (42.2 - 75.2 %) 80.6 H Lymphocytes % (20.5 - 51.1 %) 5.5 L Monocytes % (1.7 - 9.3 %) 13.4 H Eosinophils % (0 - 5 %) 0.5 Basophils % (0.0 - 2.0 %) 0 Absolute Granulocytes (1.4 - 6.5 /CUMM) 8.8 H Segmented Neutrophils (42.2 - 75.2 %) 69 Band Neutrophils (0.0 - 5.0 %) 12 H Absolute Lymphocytes (1.2 - 3.4 /CUMM) 0.6 L Lymphocytes (20.5 - 51.1 %) 11 L Monocytes (1.7 - 9.3 %) 4 Absolute Monocytes (0.10 - 0.60 /CUMM) 1.5 H Absolute Eosinophils (0.0 - 0.7 /CUMM) 0.1 Basophils (0.0 - 2.0 %) 1 Absolute Basophils (0.0 - 0.2 /CUMM) 0 Nucleated RBCs (0.0 - 0.0 /100WBC) 1 H Platelet Estimate (ADEQUATE) DECREASED Normocytic RBCs VERIFIED Normochromic RBCs VERIFIED ESR Westergren (0 - 10 MM) 116 H 09/06 09/06 09/06 1950 1820 1430 Chemistry Sodium (137 - 145 mmol/L) 141 Potassium (3.5 - 5.1 mmol/L) 4.0 Chloride (98 - 107 mmol/L) 104 Carbon Dioxide (22 - 30 mmol/L) 19 L Anion Gap (5 - 16) 19 H BUN (9 - 20 mg/dL) 80 H Creatinine (0.7 - 1.2 mg/dL) 3.4 H Estimated GFR (>60 ml/min) 19 L Glucose (65 - 99 mg/dL) 189 H Lactic Acid (0.7 - 2.1 mmol/L) 2.8 H 3.2 H Calcium (8.4 - 10.2 mg/dL) 7.9 L Phosphorus (2.5 - 4.5 mg/dL) 5.1 H Magnesium (1.6 - 2.3 mg/dL) 2.3 Total Bilirubin (0.2 - 1.3 mg/dL) 4.6 H AST (17 - 59 U/L) 207 H ALT (21 - 72 U/L) 110 H Troponin I (<0.11 ng/ml) 0.39 *H Albumin (3.5 - 5.0 g/dL) 2.6 L Hematology CBC w Diff NO MAN DIFF REQ WBC (4.8 - 10.8 /CUMM) 11.5 H RBC (4.70 - 6.10 /CUMM) 4.44 L Hgb (14.0 - 18.0 G/DL) 11.7 L Hct (42 - 52 %) 35.8 L MCV (80.0 - 94.0 FL) 80.8 MCH (27.0 - 31.0 PG) 26.4 L MCHC (33.0 - 37.0 G/DL) 32.6 L RDW (11.5 - 14.5 %) 19.3 H Plt Count (130 - 400 /CUMM) 36 L MPV (7.4 - 10.4 FL) 10.2 Gran % (42.2 - 75.2 %) 83.9 H Lymphocytes % (20.5 - 51.1 %) 3.8 L Monocytes % (1.7 - 9.3 %) 12.2 H Eosinophils % (0 - 5 %) 0.1 Basophils % (0.0 - 2.0 %) 0 Absolute Granulocytes (1.4 - 6.5 /CUMM) 9.6 H Absolute Lymphocytes (1.2 - 3.4 /CUMM) 0.4 L Absolute Monocytes (0.10 - 0.60 /CUMM) 1.4 H Absolute Eosinophils (0.0 - 0.7 /CUMM) 0 Absolute Basophils (0.0 - 0.2 /CUMM) 0 Last 24 Hours of Shady Results: Blood cultures x 2 September 06 positive for Group B strep Urine culture September 06 negative Blood cultures September 07 pending Diagnostic Data Recent Imaging Findings: CT of the head was negative for any acute process. CTA of the head and neck was negative. Chest x-ray revealed cardiomegaly with pulmonary vascular congestion and mild bibasilar atelectasis Abdominal ultrasound September 06 reveals hepatosplenomegaly, with heterogeneous hepatic echotexture consistent with fatty infiltration or hepatocellular disease Assessment/Plan Assessment/Plan Impression: This is a 61-year-old man with a history of diabetes, cirrhosis of unclear etiology, status post right great toe debridement at some point in the past, apparently begun on Colchicine several days prior to admission by his inside meter tester for a painful right foot, admitted on September 05 with slurred speech and a left facial droop superimposed on several days of increasing fatigue and poor p.o. intake, found to be afebrile with a leukocytosis and bandemia, thrombocytopenia, renal insufficiency and elevated liver enzymes with blood cultures 2 positive for Group B strep. His clinical picture is consistent with sepsis secondary to Group B strep, with evidence of multiorgan failure involving the lungs and kidneys, thrombocytopenia and elevated liver enzymes. Endocarditis must be considered, given the concern for an embolic event to his head and further evaluation for this will be necessary. A process such as toxic shock syndrome might also be considered, though he has no rash or hypotension. The most likely source of his sepsis appears to be the right foot given the swelling and tenderness, though there is no overlying erythema, and further evaluation of the foot will be necessary. This may be limited by his AICD, which likely precludes the ability for him to undergo an MRI. The possibility of inclusions within the white blood cells is noted, raising concern for a process such as Anaplasma, particularly with his thrombocytopenia, though suspect that these represent Dohle bodies. His respiratory distress may be secondary to fluid overload, but the possibility of aspiration must be considered. Unasyn should provide adequate coverage for the Group B strep as well as other organisms (if he has aspirated) and it can be continued at this time. Suggestion: 1. Obtain more information, perhaps from his inside meter tester, regarding his right foot debridement 2. Echocardiogram but, if negative, will need to consider a JESUS 3. CT of the right foot if unable to do an MRI 4. Discontinue Doxycycline 5. Continue Unasyn but decrease to 3 g IV every 8 hours Consult Acknowledgment - Thank you for your consult request.
--- NOTE | 2017-09-07 14:24 | PN- Cardiology ---
Subjective Subjective: The patient is more alert today. More cooperative. Conversant but still with slight speech difficulties. Apparently failed swallow evaluation yesterday. Follow-up evaluation pending. Earlier this morning, the patient reverted to sinus rhythm. Subsequently a protracted episode of SVT degenerating to atrial fibrillation was noted. Now back in sinus rhythm. Objective Vital Signs and I&Os Vital Signs Date Time Temp Pulse Resp B/P B/P Pulse O2 O2 Flow FiO2 Mean Ox Delivery Rate 09/07 1348 96 Nasal 50% Cannula 09/07 1200 95 Nasal 50% Cannula 09/07 0800 96 Nasal 50% Cannula 09/07 0800 97.8 126 24 132/64 96 Nasal 50% Cannula 09/07 0400 96 Nasal 50% Cannula 09/07 0202 94 Nasal 50% Cannula 09/07 0000 95 Nasal Cannula 09/07 0000 97.3 118 34 124/60 95 Nasal Cannula 09/06 2133 92 Nasal 50% Cannula 09/06 2000 94 Nasal 50% Cannula 09/06 1600 93 Nasal 55% Cannula 09/06 1600 98.1 124 28 142/70 93 Nasal 55% Cannula Intake & Output 09/07 1600 09/07 0800 /15 0000 14 1600 09/06 0800 09/06 0000 Intake Total 3797 799 8863 30 1000 Output Total 620 500 90 125 Balance 429 681 2156 -95 1000 Intake, IV 4459 813 6686 30 1000 Intake, Oral 0 0 0 Number 3 1 1 Bowel Movements Output, Stool 200 Output, Urine 620 300 90 125 Patient 253 lb 250 lb Weight Weight Bed scale Estimated Measurement Method Physical Exam: General Appearance: alert, awake, anxious, more comfortable Head: atraumatic, normal appearance Eyes: Bilateral: normal appearance, PERRL, EOMI. Neck: normal inspection, supple Respiratory: chest non-tender, rhonchi, respiratory distress Cardiovascular: S1 and S2, regular with ectopy, 2/6 systolic ejection murmur Gastrointestinal: normal bowel sounds, soft, non-tender, no organomegaly Extremities: normal inspection, normal capillary refill, right lower extremity, foot, and ankle swelling noted Neurologic/Psych: no motor/sensory deficits, awake, oriented to self and place, not time, dysarthria Current Medications: Current Medications Sig/Jasvir Start time Last Medication Dose Route Stop Time Status Admin Acetaminophen 650 MG Q6P PRN 09/06 0345 AC PO Acetaminophen 1,000 MG Q6P PRN 09/06 0345 AC 09/06 IV 0359 Albuterol Sulfate 3 ML Q4P PRN 09/06 1115 AC INH Ampicillin Sodium/ 3,000 MG Q8 09/07 2200 AC Sulbactam Sodium IV Sodium Chloride 100 ML Ampicillin Sodium/ 3,000 MG Q6H 09/06 1545 DC 09/07 Sulbactam Sodium IV 0957 Sodium Chloride 100 ML Ampicillin Sodium/ 3,000 MG Q6H 09/06 0900 DC 09/06 Sulbactam Sodium IV 0926 Sodium Chloride 100 ML Aspirin 300 MG ONCE ONE 09/06 2230 DC 09/06 WI 09/06 2231 2356 Aspirin Buffered 81 MG DAILY 09/06 0900 AC PO Ceftriaxone Sodium 1,000 MG DAILY 09/06 1541 DC IV Diltiazem HCl 125 MG Q10H 09/07 1100 AC Dextrose/Water 100 ML IV Diltiazem HCl 125 MG Q8H 09/07 1000 DC 09/07 Dextrose/Water 100 ML IV 1002 Diltiazem HCl 125 MG Q12H 09/06 1500 DC 09/06 Dextrose/Water 100 ML IV 09/07 0959 2205 Diltiazem HCl 125 MG Q24H 09/06 0230 DC 09/06 Dextrose/Water 100 ML IV 09/06 1459 0329 Doxycycline Hyclate 100 MG BID 09/06 1226 DC PO Enoxaparin Sodium 40 MG DAILY 09/06 0900 AC SC Folic Acid 1 MG DAILY 09/07 1023 AC PO Insulin Human Regular 4 UNITS .STK-MED ONE 09/07 0054 DC IV 09/07 0055 Insulin Human Regular 0 Q6 09/06 1223 AC 09/07 SC 1218 Melatonin 5 MG .STK-MED ONE 09/06 2310 DC PO 09/06 2311 Multivitamins 1 TAB DAILY 09/07 1023 AC PO Sodium Chloride 1,000 ML Q10H 09/06 0930 AC 09/06 IV 2159 Thiamine HCl 50 MG DAILY 09/07 1023 AC PO Results Last 48 Hrs of Labs/Mics: Laboratory Tests 09/07/17 0830: Troponin I 0.35 *H 09/07/17 0500: Lactic Acid 1.9 09/07/17 0500: Sodium Cancelled, Potassium Cancelled, Chloride Cancelled, Carbon Dioxide Cancelled, Anion Gap Cancelled, BUN Cancelled, Creatinine Cancelled, Glucose Cancelled, Calcium Cancelled, Phosphorus Cancelled, Magnesium Cancelled, Total Bilirubin Cancelled, AST Cancelled, ALT Cancelled, Albumin Cancelled 09/07/17 0200: Anion Gap 19 H, Estimated GFR 17 L, Glucose 185 H, Calcium 8.2 L, Phosphorus 4.6 H, Magnesium 2.5 H, Total Bilirubin 4.4 H, AST 197 H, ALT 102 H, Troponin I 0.41 *H, Albumin 2.5 L, CBC w Diff MAN DIFF ORDERED, RBC 4.37 L, MCV 80.3, MCH 26.7 L, MCHC 33.2, RDW 19.3 H, MPV 10.0, Gran % 80.6 H, Lymphocytes % 5.5 L, Monocytes % 13.4 H, Eosinophils % 0.5, Basophils % 0, Absolute Granulocytes 8.8 H, Segmented Neutrophils 69, Band Neutrophils 12 H, Absolute Lymphocytes 0.6 L, Lymphocytes 11 L, Monocytes 4, Absolute Monocytes 1.5 H, Absolute Eosinophils 0.1, Basophils 1, Absolute Basophils 0, Nucleated RBCs 1 H, Platelet Estimate DECREASED, Normocytic RBCs VERIFIED, Normochromic RBCs VERIFIED, ESR [place] 116 H 09/06/17 2130: Lactic Acid Cancelled 09/06/17 1950: Anion Gap 19 H, Estimated GFR 19 L, Glucose 189 H, Calcium 7.9 L, Phosphorus 5.1 H, Magnesium 2.3, Total Bilirubin 4.6 H, AST 207 H, ALT 110 H, Troponin I 0.39 *H, Albumin 2.6 L, CBC w Diff NO MAN DIFF REQ, RBC 4.44 L, MCV 80.8, MCH 26.4 L, MCHC 32.6 L, RDW 19.3 H, MPV 10.2, Gran % 83.9 H, Lymphocytes % 3.8 L, Monocytes % 12.2 H, Eosinophils % 0.1, Basophils % 0, Absolute Granulocytes 9.6 H, Absolute Lymphocytes 0.4 L, Absolute Monocytes 1.4 H, Absolute Eosinophils 0, Absolute Basophils 0 09/06/17 1820: Lactic Acid 2.8 H 09/06/17 1430: Lactic Acid 3.2 H 09/06/17 1130: Lactic Acid 3.6 H 09/06/17 0900: pH 7.34 L, pCO2 31 L, pO2 195 H, HCO3 16 L, ABG O2 Sat (Measured) 99.0, Carboxyhemoglobin 0.2 L, O2 Concentration % 50%, Respiration Rate 22, O2 Delivery Method V60, Vent Mode ST, Expiratory Pressure 4, Inspiratory Pressure 16, Phlebotomy Draw Site LEFT RADIAL 09/06/17 0840: Urine Opiates Screen < 100, Methadone Screen 44, Barbiturate Screen < 60, Ur Phencyclidine Scrn < 6.00, Amphetamines Screen < 100, U Benzodiazepines Scrn < 85, Urine Cocaine Screen < 50, Urine Cannabis Screen < 5.00, Urine Osmolality Pending, Ur Random Creatinine 103.3, U Random Total Protein 336 H, Ur Random Sodium 24 L, Ur Random Potassium 57.4, Protein/Creatinin Ratio 3.2 H, Fraction Sodium Excret 0.5 09/06/17 0825: Lactic Acid 5.3 H, Ammonia < 9 L 09/06/17 0825: Anion Gap 21 H, Estimated GFR 21 L, Glucose 166 H, Hemoglobin A1c Pending, Serum Osmolality 326 H, Calcium 8.4, Phosphorus 6.4 H, Magnesium 2.0, Total Bilirubin 5.3 H, AST 245 H, ALT 119 H, Gru-O-Dgxcjnjrnsd Pept 8990 H, Albumin 3.0 L, CBC w Diff MAN DIFF ORDERED, RBC 4.74, MCV 82.3, MCH 26.1 L, MCHC 31.7 L, RDW 19.8 H, MPV 10.3, Gran % 87.6 H, Lymphocytes % 2.5 L, Monocytes % 9.9 H, Eosinophils % 0, Basophils % 0, Absolute Granulocytes 11.6 H, Segmented Neutrophils 58, Band Neutrophils 29 H, Absolute Lymphocytes 0.3 L , Lymphocytes 3 L, Monocytes 10 H, Absolute Monocytes 1.3 H, Absolute Eosinophils 0, Absolute Basophils 0, Platelet Estimate DECREASED, Polychromasia 1+, Anisocytosis 1+ 09/06/17 0610: Anion Gap 23 H, Estimated GFR 23 L, Glucose 147 H, Calcium 8.4, Phosphorus 5.1 H, Magnesium 1.9, Total Bilirubin 5.3 H, AST 237 H, ALT 111 H, Troponin I 0.09, Albumin 2.8 L, Triglycerides 439 H, Cholesterol 78, LDL Cholesterol Direct < 30.00, LDL Cholesterol, Calc ND, HDL Cholesterol 14 L, Cholesterol/HDL Ratio 5.6 H, CBC w Diff MAN DIFF ORDERED, RBC 4.71, MCV 81.9, MCH 26.5 L, MCHC 32.3 L, RDW 19.7 H, MPV 11.1 H, Gran % 87.8 H, Lymphocytes % 2.6 L, Monocytes % 9.6 H, Eosinophils % 0, Basophils % 0, Absolute Granulocytes 13.3 H, Segmented Neutrophils 61, Band Neutrophils 26 H, Absolute Lymphocytes 0.4 L , Lymphocytes 4 L, Monocytes 9, Absolute Monocytes 1.4 H, Absolute Eosinophils 0, Absolute Basophils 0, Platelet Estimate DECREASED, Polychromasia 1+, Anisocytosis 1+ 09/06/17 0600: Troponin I Cancelled 09/06/17 0500: pH 7.34 L, pCO2 32 L, pO2 47 *L, HCO3 17 L, ABG O2 Sat (Measured) 79.0 L, P- 50 (Temp Corrected) Y, Carboxyhemoglobin 0.7 L, O2 Concentration % 4 LPM, Temperature 97.2, O2 Delivery Method N/C, Phlebotomy Draw Site LEFT RADIAL 09/06/17 0200: Urinalysis HEAVY H, Urine Color BLDY H, Urine Clarity TURBD H, Urine pH 5.5, Ur Specific [place] 1.020, Urine Protein 100 H, Urine Ketones NEG, Urine Nitrite POS H, Urine Bilirubin NEG, Urine Urobilinogen 1.0, Ur Leukocyte Esterase NEG, Ur Microscopic SEDIMENT EXAMINED, Urine RBC PACKD H, Urine WBC 10 -15 H, Ur Epithelial Cells FEW, Urine Bacteria MOD H, Granular Casts 5-10 H, Urine Hemoglobin LARGE H, Urine Glucose 250 H 09/06/17 0129: Troponin I 0.10 09/05/17 1810: Anion Gap 22 H, Estimated GFR 29 L, BUN/Creatinine Ratio 25.2 H, Glucose 173 H, Calcium 8.8, Total Bilirubin 4.3 H, AST 193 H, ALT 105 H, Alkaline Phosphatase 188 H, Troponin I 0.09, Total Protein 6.5, Albumin 3.1 L, Globulin 3.4, Albumin/Globulin Ratio 0.9 L, PT 15.7 H, INR 1.44 H, APTT 35, D-Dimer High Sensitivty 6199 H, CBC w Diff MAN DIFF ORDERED, RBC 4.76, MCV 81.0, MCH 26.5 L, MCHC 32.7 L, RDW 19.2 H, MPV 11.1 H, Gran % 93.2 H, Lymphocytes % 1.7 L, Monocytes % 5.0, Eosinophils % 0.1, Basophils % 0, Absolute Granulocytes 11.9 H, Segmented Neutrophils 78 H, Band Neutrophils 21 H, Absolute Lymphocytes 0.2 L, Lymphocytes 1 L, Absolute Monocytes 0.6, Absolute Eosinophils 0, Absolute Basophils 0, Platelet Estimate VERIFIED BY SMEAR, Anisocytosis 1+, Fld Total RBCs Counted 100 Microbiology 09/06 836 BLOOD: Blood Culture - COMP BETA STREP GROUP B 09/06 824 BLOOD: Blood Culture - COMP BETA STREP GROUP B 09/06 129 UPPER RESP: Surveillance Culture - COMP 09/06 129 GI: Surveillance Culture - COMP Assessment/Plan Assessment/Plan Assessment: 1. Acute neurologic changes; possible CVA 2. Atrial fibrillation of unclear duration with elevated ventricular rate 3. Acute hypoxemic/hypercapnic respiratory failure, likely related to CHF with elevated proBNP 4. Acute on chronic renal insufficiency 5. Lactic acidosis 6. Abnormal liver function tests 7. Elevated troponin 8. Thrombocytopenia 9. Group B beta strep bacteremia Recommendations: -Maintain on telemetry monitoring -Continue as per the ICU and neurologic teams -Echocardiogram noted -Continue IV Cardizem for rate/rhythm control as tolerated by blood pressure -Neurology input noted -Serial ECGs and troponins noted -Continue antibiotics pending culture results -Lower extremity venous Dopplers noted, negative -Anticoagulation on hold for now as per neurology. Thrombocytopenia noted as well. -Please try to obtain all [place] records with respect to the patient's cardiology issues, cardiac interventions, any recent testing such as echocardiogram, etc. -Infectious disease input noted -Follow-up head CT pending -Follow-up swallow evaluation pending -in view of the patient's multisystem abnormalities, suboptimal echocardiogram, abnormal appearing aortic valve on echocardiogram, blood cultures positive for beta strep, etc. please keep the patient n.p.o. after midnight for possible JESUS tomorrow, if pulmonary believes the patient's respiratory status will allow. Continue telemetry? Yes
[2017-09-07 16:00] VITALS: BP 140/80
--- NOTE | 2017-09-07 16:25 | Cons- Nephrology ---
General Information and HPI Consulting Request Date of Consult: 09/07/17 Requested By: Jose Teixeira MD Reason for Consult: DEMETRIO Source of Information: patient, family, old records Exam Limitations: no limitations History of Present Illness: The patient is a 61-year-old man with past medical history most significant for previously baseline normal renal function with a creatinine of 1.1, approximately 15-20 year history of diabetes, CAD status post CABG, gout, hypertension who presents with slurred speech. A joey had recently been diagnosed with gout and was at a follow-up podiatry appointment when he noticed that his speech was slurred. There was some facial drooping noted as well. He subsequently was sent to the ED where he was found to be in rapid A. fib with heart rate in the 180s pressure 126/56. He was admitted to the ICU where he was placed on an IV Cardizem drip. CT imaging was unremarkable any acute abnormality. He also did get a CTA of the head and neck with IV contrast was unremarkable as well for an acute abnormality. Labs also notable for serum creatinine 2.3 which is subsequently risen to 3.6. Pressure as low as 108/72. Heart rate is been persistently elevated 110s to 150s but is now back into the 80s. No Clear nephrotoxins although did receive a doses of 20mg IV Lasix for shortness of breath with mild pulmonary vascular congestion on chest x-ray. UA with 100 m/dL protein but 3.2 g on spot ratio. There was also packed red blood cells with Palencia catheter in place. Kidneys unremarkable on Abd US imaging. Allergies/Medications Allergies: Coded Allergies: No Known Allergies (02/19/16) Home Med List: Aspirin (Aspirin*) 81 MG TAB.CHEW 1 TAB PO DAILY HEART HEALTH (Reported) Atorvastatin Calcium 80 MG TABLET 1 TAB PO 1800 CHOLESTEROL (Reported) Bromocriptine Mesylate (Cycloset) 0.8 MG TABLET 1 TAB PO AD DM (Reported) Clopidogrel Bisulfate (Plavix) 75 MG TABLET 1 TAB PO DAILY HEART Please take as prescribed. Colchicine 0.6 MG TABLET 1 TAB PO BID GOUT (Reported) Empagliflozin (Jardiance) 25 MG TABLET 1 TAB PO DAILY DIABETES (Reported) Famotidine 20 MG TABLET 1 TAB PO BID GI (Reported) Insulin Aspart, Recombinant (Novolog Flexpen) 100 UNIT/ML INSULN.PEN DM ( Reported) Insulin Glargine,Hum.rec.anlog (Basaglar Kwikpen U-100) 100 UNIT/ML (3 ML) INSULN.PEN 20 UNITS SC QAM DM (Reported) Magnesium Oxide 400 MG TABLET 1 TAB PO BID SUPPLEMENT (Reported) Melatonin 3 MG TABLET 2 TAB PO QPM SLEEP (Reported) Metformin HCl 1,000 MG TABLET 1 TAB PO BID DIABETES (Reported) Metoprolol Tartrate 50 MG TABLET 1 TAB PO BID HEART/BP (Reported) Pantoprazole Sodium (Protonix) 40 MG TABLET.DR 1 TAB PO BID ULCER Please take as prescribed. Suvorexant (Belsomra) 20 MG TABLET 1 TAB PO QPM SLEEP (Reported) Valsartan 320 MG TABLET 1 TAB PO DAILY HEART (Reported) Current Medications: Current Medications Sig/Jasvir Start time Last Medication Dose Route Stop Time Status Admin Acetaminophen 650 MG Q6P PRN 09/06 0345 AC PO Acetaminophen 1,000 MG Q6P PRN 09/06 0345 AC 09/06 IV 0359 Albuterol Sulfate 3 ML Q4P PRN 09/06 1115 AC INH Ampicillin Sodium/ 3,000 MG Q8 09/07 2200 DC Sulbactam Sodium IV Sodium Chloride 100 ML Ampicillin Sodium/ 3,000 MG Q8H 09/07 1745 AC Sulbactam Sodium IV Sodium Chloride 100 ML Ampicillin Sodium/ 3,000 MG Q6H 09/06 1545 DC 09/07 Sulbactam Sodium IV 0957 Sodium Chloride 100 ML Aspirin 300 MG ONCE ONE 09/06 2230 DC 09/06 WI 09/06 2231 2356 Aspirin Buffered 81 MG DAILY 09/06 0900 AC PO Diltiazem HCl 125 MG Q10H 09/07 1100 AC Dextrose/Water 100 ML IV Diltiazem HCl 125 MG Q8H 09/07 1000 DC 09/07 Dextrose/Water 100 ML IV 1002 Diltiazem HCl 125 MG Q12H 09/06 1500 DC 09/06 Dextrose/Water 100 ML IV 09/07 0959 2205 Doxycycline Hyclate 100 MG BID 09/06 1226 DC PO Enoxaparin Sodium 40 MG DAILY 09/06 0900 AC SC Folic Acid 1 MG DAILY 09/07 1023 AC PO Insulin Human Regular 4 UNITS .STK-MED ONE 09/07 0054 DC IV 09/07 0055 Insulin Human Regular 0 Q6 09/06 1223 AC 09/07 SC 1218 Melatonin 5 MG .STK-MED ONE 09/06 2310 DC PO 09/06 2311 Multivitamins 1 TAB DAILY 09/07 1023 AC PO Sodium Chloride 1,000 ML Q10H 09/06 0930 AC 09/07 IV 1450 Thiamine HCl 50 MG DAILY 09/07 1023 AC PO Review of Systems Review of Systems: Complete 14 point ROS neg except as per HPI Past History Travel History Traveled to [place] past 21 day No Medical History Blood Transfusion Hx: Yes Neurological: NONE EENT: hearing loss Cardiovascular: hypertension, hyperlipidemia, myocardial infarction Respiratory: obstructive sleep apnea Gastrointestinal: GERD Hepatic: cirrhosis Renal: NONE Musculoskeletal: gout Psychiatric: NONE Endocrine: diabetes Blood Disorders: NONE Cancer(s): prostate cancer 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 Home Smoking Status: Never Smoked ETOH Use: occasional use Exam & Diagnostic Data Vital Signs and I&O Vital Signs Date Time Temp Pulse Resp B/P B/P Pulse O2 O2 Flow FiO2 Mean Ox Delivery Rate 09/07 1348 96 Nasal 50% Cannula 09/07 1200 95 Nasal 50% Cannula 09/07 0800 96 Nasal 50% Cannula 09/07 0800 97.8 126 24 132/64 96 Nasal 50% Cannula 09/07 0400 96 Nasal 50% Cannula 09/07 0202 94 Nasal 50% Cannula 09/07 0000 95 Nasal Cannula 09/07 0000 97.3 118 34 124/60 95 Nasal Cannula 09/06 2133 92 Nasal 50% Cannula 09/06 2000 94 Nasal 50% Cannula Intake & Output 09/07 1600 09/07 0400 09/06 1600 09/06 0400 09/05 1600 09/05 0400 Intake Total 1962.5 925 1629 1000 Output Total 1220 500 215 Balance 742.5 425 1414 1000 Intake, IV 1962.5 925 1629 1000 Intake, Oral 0 0 0 Number 3 2 Bowel Movements Output, Stool 200 Output, Urine 1220 300 215 Patient 253 lb Weight Weight Bed scale Measurement Method Physical Exam: Gen - dyspneic Head - NCAT Eyes - anicteric sclera, EOMI Neck - supple, unable to visualize JVP CV - RRR, no m/r/g Chest - clear anteriorly, no w/r/r Abd - soft, NTND Upper ext - warm, no edema Lower ext - warm, trace RLE edema Skin - no rash or jaundice Neuro - AOX3, slurred speech, otherwise nonfocal Results Pertinent Lab Results: Laboratory Tests 09/07 09/07 09/07 0830 0500 0500 Chemistry Sodium Cancelled Potassium Cancelled Chloride Cancelled Carbon Dioxide Cancelled Anion Gap Cancelled BUN Cancelled Creatinine Cancelled Glucose Cancelled Lactic Acid (0.7 - 2.1 mmol/L) 1.9 Calcium Cancelled Phosphorus Cancelled Magnesium Cancelled Total Bilirubin Cancelled AST Cancelled ALT Cancelled Troponin I (<0.11 ng/ml) 0.35 *H Albumin Cancelled 09/07 09/06 0200 2130 Chemistry Sodium (137 - 145 mmol/L) 143 Potassium (3.5 - 5.1 mmol/L) 3.9 Chloride (98 - 107 mmol/L) 106 Carbon Dioxide (22 - 30 mmol/L) 17 L Anion Gap (5 - 16) 19 H BUN (9 - 20 mg/dL) 88 H Creatinine (0.7 - 1.2 mg/dL) 3.6 H Estimated GFR (>60 ml/min) 17 L Glucose (65 - 99 mg/dL) 185 H Lactic Acid Cancelled Calcium (8.4 - 10.2 mg/dL) 8.2 L Phosphorus (2.5 - 4.5 mg/dL) 4.6 H Magnesium (1.6 - 2.3 mg/dL) 2.5 H Total Bilirubin (0.2 - 1.3 mg/dL) 4.4 H AST (17 - 59 U/L) 197 H ALT (21 - 72 U/L) 102 H Troponin I (<0.11 ng/ml) 0.41 *H Albumin (3.5 - 5.0 g/dL) 2.5 L Hematology CBC w Diff MAN DIFF ORDERED WBC (4.8 - 10.8 /CUMM) 10.9 H RBC (4.70 - 6.10 /CUMM) 4.37 L Hgb (14.0 - 18.0 G/DL) 11.7 L Hct (42 - 52 %) 35.1 L MCV (80.0 - 94.0 FL) 80.3 MCH (27.0 - 31.0 PG) 26.7 L MCHC (33.0 - 37.0 G/DL) 33.2 RDW (11.5 - 14.5 %) 19.3 H Plt Count (130 - 400 /CUMM) 32 L MPV (7.4 - 10.4 FL) 10.0 Gran % (42.2 - 75.2 %) 80.6 H Lymphocytes % (20.5 - 51.1 %) 5.5 L Monocytes % (1.7 - 9.3 %) 13.4 H Eosinophils % (0 - 5 %) 0.5 Basophils % (0.0 - 2.0 %) 0 Absolute Granulocytes (1.4 - 6.5 /CUMM) 8.8 H Segmented Neutrophils (42.2 - 75.2 %) 69 Band Neutrophils (0.0 - 5.0 %) 12 H Absolute Lymphocytes (1.2 - 3.4 /CUMM) 0.6 L Lymphocytes (20.5 - 51.1 %) 11 L Monocytes (1.7 - 9.3 %) 4 Absolute Monocytes (0.10 - 0.60 /CUMM) 1.5 H Absolute Eosinophils (0.0 - 0.7 /CUMM) 0.1 Basophils (0.0 - 2.0 %) 1 Absolute Basophils (0.0 - 0.2 /CUMM) 0 Nucleated RBCs (0.0 - 0.0 /100WBC) 1 H Platelet Estimate (ADEQUATE) DECREASED Normocytic RBCs VERIFIED Normochromic RBCs VERIFIED ESR Westergren (0 - 10 MM) 116 H 09/06 09/06 09/06 09/06 1950 1820 1430 1130 Chemistry Sodium (137 - 145 mmol/L) 141 Potassium (3.5 - 5.1 mmol/L) 4.0 Chloride (98 - 107 mmol/L) 104 Carbon Dioxide (22 - 30 mmol/L) 19 L Anion Gap (5 - 16) 19 H BUN (9 - 20 mg/dL) 80 H Creatinine (0.7 - 1.2 mg/dL) 3.4 H Estimated GFR (>60 ml/min) 19 L Glucose (65 - 99 mg/dL) 189 H Lactic Acid (0.7 - 2.1 mmol/L) 2.8 H 3.2 H 3.6 H Calcium (8.4 - 10.2 mg/dL) 7.9 L Phosphorus (2.5 - 4.5 mg/dL) 5.1 H Magnesium (1.6 - 2.3 mg/dL) 2.3 Total Bilirubin (0.2 - 1.3 mg/dL) 4.6 H AST (17 - 59 U/L) 207 H ALT (21 - 72 U/L) 110 H Troponin I (<0.11 ng/ml) 0.39 *H Albumin (3.5 - 5.0 g/dL) 2.6 L Hematology CBC w Diff NO MAN DIFF REQ WBC (4.8 - 10.8 /CUMM) 11.5 H RBC (4.70 - 6.10 /CUMM) 4.44 L Hgb (14.0 - 18.0 G/DL) 11.7 L Hct (42 - 52 %) 35.8 L MCV (80.0 - 94.0 FL) 80.8 MCH (27.0 - 31.0 PG) 26.4 L MCHC (33.0 - 37.0 G/DL) 32.6 L RDW (11.5 - 14.5 %) 19.3 H Plt Count (130 - 400 /CUMM) 36 L MPV (7.4 - 10.4 FL) 10.2 Gran % (42.2 - 75.2 %) 83.9 H Lymphocytes % (20.5 - 51.1 %) 3.8 L Monocytes % (1.7 - 9.3 %) 12.2 H Eosinophils % (0 - 5 %) 0.1 Basophils % (0.0 - 2.0 %) 0 Absolute Granulocytes (1.4 - 6.5 /CUMM) 9.6 H Absolute Lymphocytes (1.2 - 3.4 /CUMM) 0.4 L Absolute Monocytes (0.10 - 0.60 /CUMM) 1.4 H Absolute Eosinophils (0.0 - 0.7 /CUMM) 0 Absolute Basophils (0.0 - 0.2 /CUMM) 0 09/06 09/06 09/06 0900 0840 0825 Blood Gas pH (7.35 - 7.45 PH) 7.34 L pCO2 (35 - 45 TORR) 31 L pO2 (80 - 100 TORR) 195 H HCO3 (21 - 28 MEQ/L) 16 L ABG O2 Sat (Measured) (>96.0 %) 99.0 Carboxyhemoglobin (1.5 - 5.0 %) 0.2 L O2 Concentration % 50% Respiration Rate (BPM) 22 O2 Delivery Method V60 Vent Mode ST Expiratory Pressure (CM H2O P) 4 Inspiratory Pressure (CM H2O P) 16 Chemistry Lactic Acid (0.7 - 2.1 mmol/L) 5.3 H Ammonia (9 - 30 umol/L) < 9 L Miscellaneous Phlebotomy Draw Site LEFT RADIAL Toxicology Urine Opiates Screen (>2000 NG/ML) < 100 Methadone Screen (>300 NG/ML) 44 Barbiturate Screen (>200 NG/ML) < 60 Ur Phencyclidine Scrn (>25 NG/ML) < 6.00 Amphetamines Screen (>1000 NG/ML) < 100 U Benzodiazepines Scrn (>200 NG/ML) < 85 Urine Cocaine Screen (>300 NG/ML) < 50 Urine Cannabis Screen (>50 NG/ML) < 5.00 Urines Urine Osmolality (300 - 1000 MOSM/KG) 352 Ur Random Creatinine (mg/dL) 103.3 U Random Total Protein (0 - 12 mg/dL) 336 H Ur Random Sodium (30 - 90 mmol/L) 24 L Ur Random Potassium (mmol/L) 57.4 Protein/Creatinin Ratio (< 0.2) 3.2 H Fraction Sodium Excret (<1% %) 0.5 09/06 09/06 0825 0610 Chemistry Sodium (137 - 145 mmol/L) 142 143 Potassium (3.5 - 5.1 mmol/L) 4.2 3.7 Chloride (98 - 107 mmol/L) 101 103 Carbon Dioxide (22 - 30 mmol/L) 19 L 17 L Anion Gap (5 - 16) 21 H 23 H BUN (9 - 20 mg/dL) 67 H 65 H Creatinine (0.7 - 1.2 mg/dL) 3.0 H 2.8 H Estimated GFR (>60 ml/min) 21 L 23 L Glucose (65 - 99 mg/dL) 166 H 147 H Hemoglobin A1c (4.2 - 5.8 %) Pending Serum Osmolality (285 - 295 MOSM/KG) 326 H Calcium (8.4 - 10.2 mg/dL) 8.4 8.4 Phosphorus (2.5 - 4.5 mg/dL) 6.4 H 5.1 H Magnesium (1.6 - 2.3 mg/dL) 2.0 1.9 Total Bilirubin (0.2 - 1.3 mg/dL) 5.3 H 5.3 H AST (17 - 59 U/L) 245 H 237 H ALT (21 - 72 U/L) 119 H 111 H Troponin I (<0.11 ng/ml) 0.09 [id number] Pept (<125 pg/mL) 8990 H Albumin (3.5 - 5.0 g/dL) 3.0 L 2.8 L Triglycerides (<150 mg/dL) 439 H Cholesterol (< 200 MG/DL) 78 LDL Cholesterol Direct (<100 mg/dL) < 30.00 LDL Cholesterol, Calc (65 - 129 mg/dL) ND HDL Cholesterol (40 - 60 mg/dL) 14 L Cholesterol/HDL Ratio (0.00 - 4.88 %) 5.6 H Hematology CBC w Diff MAN DIFF ORDERED MAN DIFF ORDERED WBC (4.8 - 10.8 /CUMM) 13.3 H 15.1 H RBC (4.70 - 6.10 /CUMM) 4.74 4.71 Hgb (14.0 - 18.0 G/DL) 12.4 L 12.5 L Hct (42 - 52 %) 39.0 L 38.6 L MCV (80.0 - 94.0 FL) 82.3 81.9 MCH (27.0 - 31.0 PG) 26.1 L 26.5 L MCHC (33.0 - 37.0 G/DL) 31.7 L 32.3 L RDW (11.5 - 14.5 %) 19.8 H 19.7 H Plt Count (130 - 400 /CUMM) 47 L 47 L MPV (7.4 - 10.4 FL) 10.3 11.1 H Gran % (42.2 - 75.2 %) 87.6 H 87.8 H Lymphocytes % (20.5 - 51.1 %) 2.5 L 2.6 L Monocytes % (1.7 - 9.3 %) 9.9 H 9.6 H Eosinophils % (0 - 5 %) 0 0 Basophils % (0.0 - 2.0 %) 0 0 Absolute Granulocytes (1.4 - 6.5 /CUMM) 11.6 H 13.3 H Segmented Neutrophils (42.2 - 75.2 %) 58 61 Band Neutrophils (0.0 - 5.0 %) 29 H 26 H Absolute Lymphocytes (1.2 - 3.4 /CUMM) 0.3 L 0.4 L Lymphocytes (20.5 - 51.1 %) 3 L 4 L Monocytes (1.7 - 9.3 %) 10 H 9 Absolute Monocytes (0.10 - 0.60 /CUMM) 1.3 H 1.4 H Absolute Eosinophils (0.0 - 0.7 /CUMM) 0 0 Absolute Basophils (0.0 - 0.2 /CUMM) 0 0 Platelet Estimate (ADEQUATE) DECREASED DECREASED Polychromasia 1+ 1+ Anisocytosis 1+ 1+ 09/06 09/06 0600 0500 Blood Gas pH (7.35 - 7.45 PH) 7.34 L pCO2 (35 - 45 TORR) 32 L pO2 (80 - 100 TORR) 47 *L HCO3 (21 - 28 MEQ/L) 17 L ABG O2 Sat (Measured) (>96.0 %) 79.0 L P-50 (Temp Corrected) Y Carboxyhemoglobin (1.5 - 5.0 %) 0.7 L O2 Concentration % 4 LPM Temperature (97.0 - 100.0 FARH) 97.2 O2 Delivery Method N/C Chemistry Troponin I Cancelled Miscellaneous Phlebotomy Draw Site LEFT RADIAL 09/06 09/06 0200 0129 Chemistry Troponin I (<0.11 ng/ml) 0.10 Urines Urinalysis HEAVY H Urine Color (YEL,AMB,STR) BLDY H Urine Clarity (CLEAR) TURBD H Urine pH (5.0 - 8.0) 5.5 Ur Specific [place] (1.001 - 1.035) 1.020 Urine Protein (NEG,<30 MG/DL) 100 H Urine Ketones (NEG) NEG Urine Nitrite (NEG) POS H Urine Bilirubin (NEG) NEG Urine Urobilinogen (0.1 - 1.0 EU/dl) 1.0 Ur Leukocyte Esterase (NEG) NEG Ur Microscopic SEDIMENT EXAMINED Urine RBC (0 - 5 /HPF) PACKD H Urine WBC (0 - 2 /HPF) 10-15 H Ur Epithelial Cells (NONE,FEW) FEW Urine Bacteria (NEG/NONE) MOD H Granular Casts (NONE /LPF) 5-10 H Urine Hemoglobin (NEG) LARGE H Urine Glucose (N MG/DL) 250 H 0713 1810 Chemistry Sodium (137 - 145 mmol/L) 140 Potassium (3.5 - 5.1 mmol/L) 3.8 Chloride (98 - 107 mmol/L) 99 Carbon Dioxide (22 - 30 mmol/L) 18 L Anion Gap (5 - 16) 22 H BUN (9 - 20 mg/dL) 58 H Creatinine (0.7 - 1.2 mg/dL) 2.3 H Estimated GFR (>60 ml/min) 29 L BUN/Creatinine Ratio (7 - 25 %) 25.2 H Glucose (65 - 99 mg/dL) 173 H Calcium (8.4 - 10.2 mg/dL) 8.8 Total Bilirubin (0.2 - 1.3 mg/dL) 4.3 H AST (17 - 59 U/L) 193 H ALT (21 - 72 U/L) 105 H Alkaline Phosphatase (< 127 U/L) 188 H Troponin I (<0.11 ng/ml) 0.09 Total Protein (6.3 - 8.2 g/dL) 6.5 Albumin (3.5 - 5.0 g/dL) 3.1 L Globulin (1.9 - 4.2 gm/dL) 3.4 Albumin/Globulin Ratio (1.1 - 2.2 %) 0.9 L Coagulation PT (9.4 - 12.5 SEC) 15.7 H INR (0.90 - 1.17) 1.44 H APTT (25 - 37 SEC) 35 D-Dimer High Sensitivty (0 - 243 ng/ml) 6199 H Hematology CBC w Diff MAN DIFF ORDERED WBC (4.8 - 10.8 /CUMM) 12.8 H RBC (4.70 - 6.10 /CUMM) 4.76 Hgb (14.0 - 18.0 G/DL) 12.6 L Hct (42 - 52 %) 38.5 L MCV (80.0 - 94.0 FL) 81.0 MCH (27.0 - 31.0 PG) 26.5 L MCHC (33.0 - 37.0 G/DL) 32.7 L RDW (11.5 - 14.5 %) 19.2 H Plt Count (130 - 400 /CUMM) 73 L MPV (7.4 - 10.4 FL) 11.1 H Gran % (42.2 - 75.2 %) 93.2 H Lymphocytes % (20.5 - 51.1 %) 1.7 L Monocytes % (1.7 - 9.3 %) 5.0 Eosinophils % (0 - 5 %) 0.1 Basophils % (0.0 - 2.0 %) 0 Absolute Granulocytes (1.4 - 6.5 /CUMM) 11.9 H Segmented Neutrophils (42.2 - 75.2 %) 78 H Band Neutrophils (0.0 - 5.0 %) 21 H Absolute Lymphocytes (1.2 - 3.4 /CUMM) 0.2 L Lymphocytes (20.5 - 51.1 %) 1 L Absolute Monocytes (0.10 - 0.60 /CUMM) 0.6 Absolute Eosinophils (0.0 - 0.7 /CUMM) 0 Absolute Basophils (0.0 - 0.2 /CUMM) 0 Platelet Estimate (ADEQUATE) VERIFIED BY SMEAR Anisocytosis 1+ Other Body Source Fld Total RBCs Counted (%) 100 Imaging/Other Studies: Chest X-ray IMPRESSION: 1. There is cardiomegaly and mild pulmonary vascular congestion. No overt pulmonary edema is seen. 2. Lung volumes are low, with crowding of bronchovascular and pulmonary parenchymal markings. 3. There is stable mild elevation of the right hemidiaphragm. Assessment/Plan Assessment/Recommendations Assessment: DEMETRIO - Likely 2/2 ischemic ATN in the setting of A fib with RVR and renal hypoperfusion. Unfortunately compounded by contrast administration on 09/05 - unsurprising that renal function is worsening. Not dry and no evidence of obstruction. Does have an active urine sediment although seems more consistent with proteinuria from diabetic nephropathy and tubular damage and RBC's from palencia catheter placement. Proteinuria - discrepancy between UA and Uprot/Cr raises suspicion for paraprotein for which he should be evaluated. Albumin level is low and proteinuria is nephrotic range. I would send for paraprotein but hold off on further serologic work-up for now. Hypoxia - Underlying etiology a bit unclear. ?Vascular crowding from rapid A fib with decreased filling time. Not clear to me that filling pressures are so elevated to warrant significant diuresis. Recommendations: -SPEP, [place] Lambda Free Light Chain ratio -24hr urine for protein -Daily BMP -Not clear that he needs more diuresis today with SCr rising (granted it is rising for other reasons) Please call [phone] with ?'s
--- NOTE | 2017-09-07 16:31 | PN- Neurology ---
Subjective Subjective: Patient feeling better Pain right foot Less short of breath Review of Systems: No headache Objective Vital Signs and I&Os Vital Signs Date Time Temp Pulse Resp B/P B/P Pulse O2 O2 Flow FiO2 Mean Ox Delivery Rate 09/07 1348 96 Nasal 50% Cannula 09/07 1200 95 Nasal 50% Cannula 09/07 0800 96 Nasal 50% Cannula 09/07 0800 97.8 126 24 132/64 96 Nasal 50% Cannula 09/07 0400 96 Nasal 50% Cannula 09/07 0202 94 Nasal 50% Cannula 09/07 0000 95 Nasal Cannula 09/07 0000 97.3 118 34 124/60 95 Nasal Cannula 09/06 2133 92 Nasal 50% Cannula 09/06 2000 94 Nasal 50% Cannula Intake & Output 09/07 1600 09/07 0800 09/07 0000 09/06 1600 09/06 0800 09/06 0000 Intake Total 942.5 0790 675 8161 30 1000 Output Total 600 620 500 90 125 Balance 342.5 127 130 7831 -95 1000 Intake, IV 942.5 4088 410 9045 30 1000 Intake, Oral 0 0 0 Number 3 1 1 Bowel Movements Output, Stool 200 Output, Urine 600 620 300 90 125 Patient 253 lb 250 lb Weight Weight Bed scale Estimated Measurement Method Physical Exam: Alert Mildly confused but oriented to place and date Dysarthria less prominent Extraocular movements full Visual clement intact No focal weakness upper extremities Swelling/pain right foot Current Medications: Current Medications Sig/Jasvir Start time Last Medication Dose Route Stop Time Status Admin Acetaminophen 650 MG Q6P PRN 09/06 0345 AC PO Acetaminophen 1,000 MG Q6P PRN 09/06 0345 AC 09/06 IV 0359 Albuterol Sulfate 3 ML Q4P PRN 09/06 1115 AC INH Ampicillin Sodium/ 3,000 MG Q8 09/07 2200 DC Sulbactam Sodium IV Sodium Chloride 100 ML Ampicillin Sodium/ 3,000 MG Q8H 09/07 1745 AC Sulbactam Sodium IV Sodium Chloride 100 ML Ampicillin Sodium/ 3,000 MG Q6H 09/06 1545 DC 09/07 Sulbactam Sodium IV 0957 Sodium Chloride 100 ML Aspirin 300 MG ONCE ONE 09/06 2230 DC 09/06 [place] 09/06 2231 2356 Aspirin Buffered 81 MG DAILY 09/06 0900 AC PO Diltiazem HCl 125 MG Q10H 09/07 1100 AC Dextrose/Water 100 ML IV Diltiazem HCl 125 MG Q8H 09/07 1000 DC 09/07 Dextrose/Water 100 ML IV 1002 Diltiazem HCl 125 MG Q12H 09/06 1500 DC 09/06 Dextrose/Water 100 ML IV 09/07 0959 2205 Doxycycline Hyclate 100 MG BID 09/06 1226 DC PO Enoxaparin Sodium 40 MG DAILY 09/06 0900 AC SC Folic Acid 1 MG DAILY 09/07 1023 AC PO Insulin Human Regular 4 UNITS .STK-MED ONE 09/07 0054 DC IV 09/07 0055 Insulin Human Regular 0 Q6 09/06 1223 AC 09/07 SC 1218 Melatonin 5 MG .STK-MED ONE 09/06 2310 DC PO 09/06 2311 Multivitamins 1 TAB DAILY 09/07 1023 AC PO Sodium Chloride 1,000 ML Q10H 09/06 0930 AC 09/07 IV 1450 Thiamine HCl 50 MG DAILY 09/07 1023 AC PO Results Last 24 Hours of Lab Results: Laboratory Tests 09/07 09/07 09/07 0830 0500 0500 Chemistry Sodium Cancelled Potassium Cancelled Chloride Cancelled Carbon Dioxide Cancelled Anion Gap Cancelled BUN Cancelled Creatinine Cancelled Glucose Cancelled Lactic Acid (0.7 - 2.1 mmol/L) 1.9 Calcium Cancelled Phosphorus Cancelled Magnesium Cancelled Total Bilirubin Cancelled AST Cancelled ALT Cancelled Troponin I (<0.11 ng/ml) 0.35 *H Albumin Cancelled 09/07 09/06 0200 2130 Chemistry Sodium (137 - 145 mmol/L) 143 Potassium (3.5 - 5.1 mmol/L) 3.9 Chloride (98 - 107 mmol/L) 106 Carbon Dioxide (22 - 30 mmol/L) 17 L Anion Gap (5 - 16) 19 H BUN (9 - 20 mg/dL) 88 H Creatinine (0.7 - 1.2 mg/dL) 3.6 H Estimated GFR (>60 ml/min) 17 L Glucose (65 - 99 mg/dL) 185 H Lactic Acid Cancelled Calcium (8.4 - 10.2 mg/dL) 8.2 L Phosphorus (2.5 - 4.5 mg/dL) 4.6 H Magnesium (1.6 - 2.3 mg/dL) 2.5 H Total Bilirubin (0.2 - 1.3 mg/dL) 4.4 H AST (17 - 59 U/L) 197 H ALT (21 - 72 U/L) 102 H Troponin I (<0.11 ng/ml) 0.41 *H Albumin (3.5 - 5.0 g/dL) 2.5 L Hematology CBC w Diff MAN DIFF ORDERED WBC (4.8 - 10.8 /CUMM) 10.9 H RBC (4.70 - 6.10 /CUMM) 4.37 L Hgb (14.0 - 18.0 G/DL) 11.7 L Hct (42 - 52 %) 35.1 L MCV (80.0 - 94.0 FL) 80.3 MCH (27.0 - 31.0 PG) 26.7 L MCHC (33.0 - 37.0 G/DL) 33.2 RDW (11.5 - 14.5 %) 19.3 H Plt Count (130 - 400 /CUMM) 32 L MPV (7.4 - 10.4 FL) 10.0 Gran % (42.2 - 75.2 %) 80.6 H Lymphocytes % (20.5 - 51.1 %) 5.5 L Monocytes % (1.7 - 9.3 %) 13.4 H Eosinophils % (0 - 5 %) 0.5 Basophils % (0.0 - 2.0 %) 0 Absolute Granulocytes (1.4 - 6.5 /CUMM) 8.8 H Segmented Neutrophils (42.2 - 75.2 %) 69 Band Neutrophils (0.0 - 5.0 %) 12 H Absolute Lymphocytes (1.2 - 3.4 /CUMM) 0.6 L Lymphocytes (20.5 - 51.1 %) 11 L Monocytes (1.7 - 9.3 %) 4 Absolute Monocytes (0.10 - 0.60 /CUMM) 1.5 H Absolute Eosinophils (0.0 - 0.7 /CUMM) 0.1 Basophils (0.0 - 2.0 %) 1 Absolute Basophils (0.0 - 0.2 /CUMM) 0 Nucleated RBCs (0.0 - 0.0 /100WBC) 1 H Platelet Estimate (ADEQUATE) DECREASED Normocytic RBCs VERIFIED Normochromic RBCs VERIFIED ESR Westergren (0 - 10 MM) 116 H 09/06 09/06 1950 1820 Chemistry Sodium (137 - 145 mmol/L) 141 Potassium (3.5 - 5.1 mmol/L) 4.0 Chloride (98 - 107 mmol/L) 104 Carbon Dioxide (22 - 30 mmol/L) 19 L Anion Gap (5 - 16) 19 H BUN (9 - 20 mg/dL) 80 H Creatinine (0.7 - 1.2 mg/dL) 3.4 H Estimated GFR (>60 ml/min) 19 L Glucose (65 - 99 mg/dL) 189 H Lactic Acid (0.7 - 2.1 mmol/L) 2.8 H Calcium (8.4 - 10.2 mg/dL) 7.9 L Phosphorus (2.5 - 4.5 mg/dL) 5.1 H Magnesium (1.6 - 2.3 mg/dL) 2.3 Total Bilirubin (0.2 - 1.3 mg/dL) 4.6 H AST (17 - 59 U/L) 207 H ALT (21 - 72 U/L) 110 H Troponin I (<0.11 ng/ml) 0.39 *H Albumin (3.5 - 5.0 g/dL) 2.6 L Hematology CBC w Diff NO MAN DIFF REQ WBC (4.8 - 10.8 /CUMM) 11.5 H RBC (4.70 - 6.10 /CUMM) 4.44 L Hgb (14.0 - 18.0 G/DL) 11.7 L Hct (42 - 52 %) 35.8 L MCV (80.0 - 94.0 FL) 80.8 MCH (27.0 - 31.0 PG) 26.4 L MCHC (33.0 - 37.0 G/DL) 32.6 L RDW (11.5 - 14.5 %) 19.3 H Plt Count (130 - 400 /CUMM) 36 L MPV (7.4 - 10.4 FL) 10.2 Gran % (42.2 - 75.2 %) 83.9 H Lymphocytes % (20.5 - 51.1 %) 3.8 L Monocytes % (1.7 - 9.3 %) 12.2 H Eosinophils % (0 - 5 %) 0.1 Basophils % (0.0 - 2.0 %) 0 Absolute Granulocytes (1.4 - 6.5 /CUMM) 9.6 H Absolute Lymphocytes (1.2 - 3.4 /CUMM) 0.4 L Absolute Monocytes (0.10 - 0.60 /CUMM) 1.4 H Absolute Eosinophils (0.0 - 0.7 /CUMM) 0 Absolute Basophils (0.0 - 0.2 /CUMM) 0 Recent Imaging Studies: CT 09/05 IMPRESSION: No acute intracranial pathology. Assessment/Plan Assessment: Dysarthria No other focal symptoms Remains unclear if patient had small CVA Plan: May start anticoagulants tomorrow if indicated Eventual repeat CT scan brain to determine if patient had identifiable infarct
--- NOTE | 2017-09-07 17:30 | ECHOCARDIOGRAM REPORT ---
HOUSTON RUBI Age: 61 : 1955 Gender: M Exam Date: 09/06/2017 09:40 Exam Location: [facility] Ht (in): 69 Wt (lb): 250 BSA: 2.40 BP: 108 / 75 Ordering Physician: Yenni Proctor MD Referring Physician: Matt Kruger M.D. Technologist: Nesha Hurst [facility] Room Number: 103 Indications: Rhythm: Atrial fibrillation Technical Quality: Poor, Very technically difficult study FINDINGS Left Ventricle Normal size left ventricle. Taylor hypokinetic. Borderline normal left ventricular ejection fraction estimated at 50-55%. Right Ventricle Right ventricle not well visualized. Right Atrium Right atrium not well visualized, grossly normal. Left Atrium Moderate left atrial dilatation. Mitral Valve Mild thickening/calcification of the anterior mitral valve leaflet. Aortic Valve Aortic valve not well visualized. Diffuse thickening (sclerosis) of the aortic valve cusps without reduced excursion. Tricuspid Valve Tricuspid valve not well visualized. Pulmonic Valve Pulmonic valve not well visualized. Pericardium No pericardial effusion. Great Vessels Aortic root and proximal ascending aorta not well visualized, grossly normal. CONCLUSIONS 1. This was a technically difficult and very limited study due to the patient's body habitus, this clinical status, and the fact that the patient was very tachycardic during the test. 2. Fibrocalcific changes are present in the aortic valve. The valve was not well-visualized anatomically. The noncoronary leaflet appears to be diffusely thickened. The possibility of a associated vegetative lesion cannot be excluded by this study. Accurate assessment of aortic valve function was not possible. 3. Thickening intoxication of the mitral leaflets is present with no evidence of valvular stenosis. 4. Moderate left atrial enlargement is present. 5. No significant pericardial fluid was identified. 6. Left ventricular chamber size is normal. Image quality was suboptimal. Additional images were obtained following the administration of IV contrast. The ejection fraction appears normal. Accurate wall motion assessment was not possible but there may be focal hypokinesia at the apex. 7. The right heart structures were not well visualized. Right ventricular systolic pressure cannot be accurately assessed. 8. A follow-up study might be useful in the patient's heart rate is better controlled. 9. A transesophageal echocardiogram is suggested to better exclude the possibility of vegetative lesions Subhash Mallory M.D. (Electronically Signed) Final Date: 07 September 2017 17:24 MEASUREMENTS (Male / Female) Normal Values 2D ECHO LV Diastolic Diameter PLAX 4.2 cm 4.2 - 5.9 / 3.9 - 5.3 cm LV Systolic Diameter PLAX 3.2 cm 2.1 - 4.0 cm LV Fractional Shortening PLAX 23.8 % 25 - 46 % LV Ejection Fraction 2D Teich 47.9 % IVS Diastolic Thickness 1.2 cm LVPW Diastolic Thickness 1.4 cm LV Relative Wall Thickness 0.6 LVOT Diameter 2.0 cm Aortic Root Diameter 2.9 cm LA Systolic Diameter LX 4.5 cm 3.0 - 4.0 / 2.7 - 3.8 cm DOPPLER AV Peak Velocity 132.0 cm/s AV Peak Gradient 7.0 mmHg LVOT Peak Velocity 106.0 cm/s LVOT Peak Gradient 4.5 mmHg AV Area Cont Eq pk 2.5 cm Mitral E Point Velocity 116.0 cm/s PV Peak Velocity 164.0 cm/s PV Peak Gradient 10.8 mmHg LV E' Lateral Velocity 13.5 cm/s Mitral E to LV E' Lateral Ratio 8.6 LV E' Septal Velocity 8.4 cm/s Mitral E to LV E' Septal Ratio 13.8
--- NOTE | 2017-09-07 19:29 | CT SCAN REPORT ---
EXAMINATION: CT LOWER EXTREMITY WITHOUT CONTRAST, RIGHT CLINICAL INFORMATION: Right foot cellulitis. Swelling and tenderness. COMPARISON: None TECHNIQUE: A noncontrast CT of the right foot is performed with sagittal and coronal reformats. DLP: 209 mGy-cm FINDINGS: There are advanced arthritic changes throughout the midfoot with numerous subchondral lucencies which may represent erosions from an inflammatory arthropathy such as rheumatoid arthritis. There is destruction of the navicular with multiple fracture fragments, some of which are dorsally displaced, and one of which is depressed into an impaction fracture at the lateral/plantar aspect of the distal talus. There is flattening/remodeling at the dorsal articular surface of the medial cuneiform. There is diffuse soft tissue and subcutaneous edema without a focal fluid collection. There is a heel spur and thickening of the proximal plantar fascia. Prominent vascular calcifications. IMPRESSION: Fragmented displaced fracture fragments of the navicular and mild impaction of the distal talus suggests a neuropathic foot. There are numerous subchondral cyst/erosions throughout the midfoot which may be secondary to an inflammatory arthropathy. Diffuse soft tissue and subcutaneous edema without a focal fluid collection to indicate an abscess.
[2017-09-08] VITALS: BP 130/70
[2017-09-08 04:58] LABS: ABSOLUTE BASOPHIL COUNT 0 /CUMM (0.0-0.2); BASOPHIL % 0 % (0.0-2.0)
[2017-09-08 05:07] LABS: ABSOLUTE EOSINOPHIL COUNT 0 /CUMM (0.0-0.7); ABSOLUTE GRANULOCYTE CT 10.3 /CUMM (1.4-6.5); ABSOLUTE LYMPH COUNT 0.8 /CUMM (1.2-3.4); ABSOLUTE MONOCYTE COUNT 2.5 /CUMM (0.10-0.60); EOSINOPHIL % 0.2 % (0-5); GRANULOCYTE % 75.6 % (42.2-75.2); MEAN CORPUSCULAR HGB 26.5 PG (27.0-31.0); MEAN CORPUSCULAR HGB CONC 32.8 G/DL (33.0-37.0); MEAN CORPUSCULAR VOLUME 80.6 FL (80.0-94.0); MEAN PLATELET VOLUME 9.9 FL (7.4-10.4); PLATELET COUNT 34 /CUMM (130-400); RBC DISTRIBUTION WIDTH 20.1 % (11.5-14.5); RED BLOOD CELL CT 4.34 /CUMM (4.70-6.10); WHITE BLOOD CELL COUNT 13.6 /CUMM (4.8-10.8)
--- NOTE | 2017-09-08 07:16 | PN- CRCU ---
Subjective HPI/Critical Care Issues: The patient remains awake, but is severely confused and not answering questions appropriately. The patient was intermittently agitated overnight. He continues on high flow oxygen noting that he appears visibly short of breath and his oxygen requirement has increased to 50%. The patient remains hemodynamically stable. He is not able to offer complaints. Objective Current Medications: Current Medications Sig/Jasvir Start time Last Medication Dose Route Stop Time Status Admin Acetaminophen 650 MG Q6P PRN 09/06 0345 AC PO Acetaminophen 1,000 MG Q6P PRN 09/06 0345 AC 09/06 IV 0359 Albuterol Sulfate 3 ML Q4P PRN 09/06 1115 AC INH Ampicillin Sodium/ 3,000 MG Q8 09/07 2200 DC Sulbactam Sodium IV Sodium Chloride 100 ML Ampicillin Sodium/ 3,000 MG Q8H 09/07 1745 AC 09/08 Sulbactam Sodium IV 0238 Sodium Chloride 100 ML Ampicillin Sodium/ 3,000 MG Q6H 09/06 1545 DC 09/07 Sulbactam Sodium IV 0957 Sodium Chloride 100 ML Aspirin Buffered 81 MG DAILY 09/06 0900 AC PO Diltiazem HCl 125 MG Q10H 09/07 1100 AC 09/08 Dextrose/Water 100 ML IV 0643 Diltiazem HCl 125 MG Q8H 09/07 1000 DC 09/07 Dextrose/Water 100 ML IV 1002 Diltiazem HCl 125 MG Q12H 09/06 1500 DC 09/06 Dextrose/Water 100 ML IV 09/07 0959 2205 Doxycycline Hyclate 100 MG BID 09/06 1226 DC PO Enoxaparin Sodium 40 MG DAILY 09/06 0900 AC SC Folic Acid 1 MG DAILY 09/07 1023 AC PO Insulin Human Regular 6 UNITS .STK-MED ONE 09/07 1802 DC IV 09/07 1803 Insulin Human Regular 4 UNITS .STK-MED ONE 09/07 1215 DC IV 09/07 1216 Insulin Human Regular 0 Q6 09/06 1223 AC 09/08 SC 0643 Multivitamins 1 TAB DAILY 09/07 1023 AC PO Sodium Chloride 1,000 ML Q10H 09/06 0930 AC 09/08 IV 0100 Thiamine HCl 50 MG DAILY 09/07 1023 AC PO Vital Signs & I&O Last 24 Hrs of Vitals and I&O: Vital Signs Date Time Temp Pulse Resp B/P B/P Pulse O2 O2 Flow FiO2 Mean Ox Delivery Rate 09/08 0230 92 Nasal 50% Cannula 09/08 0024 86 97 09/08 0000 94 BIPAP 40% 09/08 0000 98.0 84 30 130/70 94 BIPAP 40% 09/07 2324 85 95 09/07 2012 94 Nasal 45% Cannula 09/07 2000 93 Nasal 45% Cannula 09/07 1600 95 Nasal 50% Cannula 09/07 1600 97.2 79 24 140/80 95 Nasal 50% Cannula 09/07 1348 96 Nasal 50% Cannula 09/07 1200 95 Nasal 50% Cannula 09/07 0800 96 Nasal 50% Cannula 09/07 0800 97.8 126 24 132/64 96 Nasal 50% Cannula Intake & Output 09/08 0800 09/08 0000 09/07 1600 Intake Total 888 660 942.5 Output Total 1100 700 600 Balance -212 -40 342.5 Intake, IV 888 100 942.5 Intake, Oral 560 Number 1 1 Bowel Movements Output, Urine 1100 700 600 Physical Exam General Appearance: awake, anxious, mildly tachypneic Head: atraumatic, normal appearance Eyes: Bilateral: normal appearance, PERRL, EOMI. Neck: normal inspection, supple Respiratory: chest non-tender, rhonchi, respiratory distress Cardiovascular: S1 and S2 heard Gastrointestinal: normal bowel sounds, soft, non-tender, no organomegaly Extremities: normal inspection, normal capillary refill Neurologic/Psych: no motor/sensory deficits, awake, oriented to self and place, not time, dysarthria Cranial Nerves: normal hearing, normal speech Skin: intact, normal color Results Last 24 Hrs of Lab Results: Laboratory Tests 09/08/17 0415: Anion Gap 17 H, Estimated GFR 17 L, Glucose 214 H, Calcium 8.5, Phosphorus 5.2 H, Magnesium 2.6 H, Total Bilirubin 3.0 H, AST 134 H, ALT 81 H, Albumin 2.4 L, CBC w Diff MAN DIFF ORDERED, RBC 4.34 L, MCV 80.6, MCH 26.5 L, MCHC 32.8 L, RDW 20.1 H, MPV 9.9, Gran % 75.6 H, Lymphocytes % 5.7 L, Monocytes % 18.5 H, Eosinophils % 0.2, Basophils % 0, Absolute Granulocytes 10.3 H, Segmented Neutrophils 68, Band Neutrophils 10 H, Absolute Lymphocytes 0.8 L, Lymphocytes 12 L, Monocytes 8, Absolute Monocytes 2.5 H, Absolute Eosinophils 0, Absolute Basophils 0, Metamyelocytes 2 H, Nucleated RBCs 1 H, Platelet Estimate DECREASED, Normocytic RBCs VERIFIED, Normochromic RBCs VERIFIED 09/07/17 0830: Troponin I 0.35 *H 09/07/17 0830: Prot Electrophoresis Pending, Total Protein (PEP) Pending, Albumin % (PEP) Pending, Hrthn-4-Beqpkwqsh Pending, Uryyk-0-Zlxunbwzl Pending, Jwwb-8-Qzdfyrdp Pending, Ueei-3-Qpikyywg Pending, Gamma Globulins Pending, Abnorm Protein Band 1 Pending, Abnorm Protein Band 2 Pending, Abnorm Protein Band 3 Pending, Ref Lab Test Result Pending Last 24 Hrs of Micro Results: Strep B BCs positive. Diagnostic Data CT Scan Findings: Fragmented displaced fracture fragments of the navicular and mild impaction of the distal talus suggests a neuropathic foot. There are numerous subchondral cyst/erosions throughout the midfoot which may be secondary to an inflammatory arthropathy. Diffuse soft tissue and subcutaneous edema without a focal fluid collection to indicate an abscess. Impression/Plan Impression/Plan Impression/Plan: 1. Acute hypoxemic respiratory failure in the setting of possible fluid overload versus aspiration pneumonia/pneumonitis. 2. Strep group B sepsis, CT scan shows subcutaneous edema and focal fluid collection suggestive of abscess - will need surgical evaluation. 3. Acute on chronic kidney injury - secondary to ischemic ATN, nephrology following, further work up pending. 4. Atrial fibrillation with rapid ventricular response -patient converted to sinus rhythm. 5. 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 6. Positive troponin, suggestive of demand ischemia. 7. Elevated bilirubin and transaminitis, abdominal ultrasound suggestive of cirrhosis. 8. Right lower extremity fractures and abscess formation. 9. Toxic/metabolic encephalopathy. Recommendations: * Continue high flow oxygen to maintain saturations greater than 92%. * Will discuss with anesthesia regarding intubation. The patient's oxygen requirement has slightly increased as has his work of breathing. * Timing of JESUS to be determined by cardiology. * Follow-up surgery input. Patient already has been evaluated for his possible foot abscess. * IVFs per nephrology. * Continue with nebs/TRC. * Continue insulin sliding scale. * Follow up head CT results. * Will continue to follow neurology recommendations, appreciate input. * Will also continue to follow cardiology recommendations, appreciate input. * Multivitamin, thiamine and folate. * Hematology consult for thrombocytopenia. * DVT prophylaxis at all times. * Continue to monitor in the critical care unit. The patient remains critically ill.
--- NOTE | 2017-09-08 07:27 | PN- Resident CRCU ---
Subjective HPI/CRCU Issues: Septic shock Respiratory failure requiring intubation Group B strep bacteremia Kidney injury Thrombocytopenia UTI 24 Hour Events: Seen and examined at bedside. Patient continues to be in moderate distress with increased wo oriented to rk of breathing and tachypnea. Weekend events of positive group B strep 2 noted. Objective Vital Signs & I&O Last 8 Hrs of Vitals and I&O: Laboratory Tests 09/08 0415 Chemistry Sodium (137 - 145 mmol/L) 144 Potassium (3.5 - 5.1 mmol/L) 3.6 Chloride (98 - 107 mmol/L) 109 H Carbon Dioxide (22 - 30 mmol/L) 18 L Anion Gap (5 - 16) 17 H BUN (9 - 20 mg/dL) 98 H Creatinine (0.7 - 1.2 mg/dL) 3.6 H Estimated GFR (>60 ml/min) 17 L Glucose (65 - 99 mg/dL) 214 H Calcium (8.4 - 10.2 mg/dL) 8.5 Phosphorus (2.5 - 4.5 mg/dL) 5.2 H Magnesium (1.6 - 2.3 mg/dL) 2.6 H Total Bilirubin (0.2 - 1.3 mg/dL) 3.0 H AST (17 - 59 U/L) 134 H ALT (21 - 72 U/L) 81 H Albumin (3.5 - 5.0 g/dL) 2.4 L Hematology CBC w Diff MAN DIFF ORDERED WBC (4.8 - 10.8 /CUMM) 13.6 H RBC (4.70 - 6.10 /CUMM) 4.34 L Hgb (14.0 - 18.0 G/DL) 11.5 L Hct (42 - 52 %) 35.0 L MCV (80.0 - 94.0 FL) 80.6 MCH (27.0 - 31.0 PG) 26.5 L MCHC (33.0 - 37.0 G/DL) 32.8 L RDW (11.5 - 14.5 %) 20.1 H Plt Count (130 - 400 /CUMM) 34 L MPV (7.4 - 10.4 FL) 9.9 Gran % (42.2 - 75.2 %) 75.6 H Lymphocytes % (20.5 - 51.1 %) 5.7 L Monocytes % (1.7 - 9.3 %) 18.5 H Eosinophils % (0 - 5 %) 0.2 Basophils % (0.0 - 2.0 %) 0 Absolute Granulocytes (1.4 - 6.5 /CUMM) 10.3 H Segmented Neutrophils (42.2 - 75.2 %) 68 Band Neutrophils (0.0 - 5.0 %) 10 H Absolute Lymphocytes (1.2 - 3.4 /CUMM) 0.8 L Lymphocytes (20.5 - 51.1 %) 12 L Monocytes (1.7 - 9.3 %) 8 Absolute Monocytes (0.10 - 0.60 /CUMM) 2.5 H Absolute Eosinophils (0.0 - 0.7 /CUMM) 0 Absolute Basophils (0.0 - 0.2 /CUMM) 0 Metamyelocytes (0.0 - 1.0 %) 2 H Nucleated RBCs (0.0 - 0.0 /100WBC) 1 H Platelet Estimate (ADEQUATE) DECREASED Normocytic RBCs VERIFIED Normochromic RBCs VERIFIED Intake & Output 09/08 1600 Intake Total Output Total Balance Patient 114.787 kg Weight Exam General Appearance: awake, moderate distress, INCREASED WORK OF BREATHING Head: atraumatic, normal appearance Neck: supple, full range of motion Respiratory: rhonchi Cardiovascular: regular rate/rhythm Gastrointestinal: normal bowel sounds, soft, non-tender Current Medications: Current Medications Sig/Jasvir Start time Last Medication Dose Route Stop Time Status Admin Acetaminophen 650 MG Q6P PRN 09/06 0345 AC PO Acetaminophen 1,000 MG Q6P PRN 09/06 0345 AC 09/06 IV 0359 Albuterol Sulfate 3 ML Q4P PRN 09/06 1115 AC INH Ampicillin Sodium/ 3,000 MG Q8 09/07 2200 DC Sulbactam Sodium IV Sodium Chloride 100 ML Ampicillin Sodium/ 3,000 MG Q8H 09/07 1745 AC 09/08 Sulbactam Sodium IV 1231 Sodium Chloride 100 ML Aspirin Buffered 81 MG DAILY 09/06 0900 AC PO Atorvastatin Calcium 80 MG 1700 09/08 1700 AC PO Diltiazem HCl 125 MG Q12H 09/08 1230 AC 09/08 Dextrose/Water 100 ML IV 1231 Diltiazem HCl 125 MG Q10H 09/07 1100 DC 09/08 Dextrose/Water 100 ML IV 09/08 1229 0643 Enoxaparin Sodium 40 MG DAILY 09/06 0900 AC 09/08 SC 1230 Folic Acid 1 MG DAILY 09/07 1023 AC PO Insulin Human Regular 6 UNITS .STK-MED ONE 09/08 0639 DC IV 09/08 0640 Insulin Human Regular 4 UNITS .STK-MED ONE 09/07 2351 DC IV 09/07 2352 Insulin Human Regular 6 UNITS .STK-MED ONE 09/07 1802 DC IV 09/07 1803 Insulin Human Regular 0 Q6 09/06 1223 AC 09/08 SC 1228 Lorazepam 2 MG ONCE ONE 09/08 1315 DC 09/08 IV 09/08 1316 1318 Multivitamins 1 TAB DAILY 09/07 1023 AC PO Non-Formulary 0 SEE ADMIN CRITERIA 09/08 1115 CAN Medication ANY Propofol 1,000 MG Q12H 09/08 1115 AC 09/08 N/A 1 UNIT IV 1316 Sodium Chloride 1,000 ML Q6H 09/08 0815 AC 09/08 IV 1108 Sodium Chloride 1,000 ML Q10H 09/06 0930 DC 09/08 IV 0100 Thiamine HCl 50 MG DAILY 09/07 1023 AC PO Impression/Plan Impression/Problem List Impression: Impression: 65 y/o M with PMH of DM, Gout(?), NJ s/p CABG on aspirin/plavix, hypertension and hyperlipidemia was brought to the ED 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 Patient is reported to have had a sudden onset dysarthria, difficulty swallowing and L nasolabial fold drooping. This neurological deficits or transit and result on the patient was in the ICU. Patient was also found to have new onset A. fib . Assessment: 1. Acute Hypoxemic Respiratory Failure now intubated due to increased work of breathing and tachypnea. 2. Atrial Fibrilliation with RVR - now in NSR 3. DEMETRIO 4. Evolving lacunar infarct as evident by today's CT scan . 5. Strep B bacteremia (this is uncommon in diabetic patients) 6. Elevated Troponins. Type II NJ. Now resolved. 7. Elevated ESR 8. Thrombocytopenia most likely secondary to sepsis, there is concern of DIC. Plan: * Continue monitoring in ICU for now. * continue on mechanical ventilation with assist control with VT is of 550, PEEP of 5, respiratory rate of 20, and FiO2 of 60-100. * Currently on IV Unasyn (day 3). * Lower IV Cardizem to 12.5mg/hr * OG tube for meds administration * TTE - pending to assess for endocarditis * Started Atorvastatin 80mg as part of stroke management giventhe patient has an evloving lacunar infarct * His DEMETRIO has worsened. Likely secondary to contrast induced nephropathy * Nephrology consult for DEMETRIO. * Continue IVF @50ml/hr * Monitor thrombocytopenia. This could have worsened in the setting of infection. * Will obtain DIC panel if remarkable, will give 2 units of platelets prior to JESUS tomorrow (team discussed with heme) * Diet: NPO for now * DVT Prophylaxis: ALPS only. * Code: Full Code Problem List: 1. New onset a-fib 2. DEMETRIO (acute kidney injury) 3. CVA (cerebral vascular accident) Pain Ratin Tomorrow's Labs & Rationales: icu bundle CBC Plan DVT/Prophylaxis: mechanical
--- NOTE | 2017-09-08 07:58 | PN- Cardiology ---
Subjective Subjective: Events over the weekend noted. Patient remains dyspneic on high flow oxygen. He states he feels good when he does not move, otherwise he feels short of breath. + nausea Review of Systems: ROSL: not obtainable, patient confused Objective Vital Signs and I&Os Vital Signs Date Time Temp Pulse Resp B/P B/P Pulse O2 O2 Flow FiO2 Mean Ox Delivery Rate 09/08 0230 92 Nasal 50% Cannula 09/08 0024 86 97 09/08 0000 94 BIPAP 40% 09/08 0000 98.0 84 30 130/70 94 BIPAP 40% 09/07 2324 85 95 09/07 2012 94 Nasal 45% Cannula 09/07 2000 93 Nasal 45% Cannula 09/07 1600 95 Nasal 50% Cannula 09/07 1600 97.2 79 24 140/80 95 Nasal 50% Cannula 09/07 1348 96 Nasal 50% Cannula 09/07 1200 95 Nasal 50% Cannula 09/07 0800 96 Nasal 50% Cannula 09/07 0800 97.8 126 24 132/64 96 Nasal 50% Cannula Intake & Output 09/08 0800 09/08 0000 09/07 1600 09/07 0800 09/07 0000 09/06 1600 Intake Total 888 660 942.5 3360 963 5006 Output Total 1100 700 600 620 500 90 Balance -212 -40 342.5 968 061 5164 Intake, IV 888 100 942.5 1210 062 4162 Intake, Oral 560 0 Number 1 1 3 1 Bowel Movements Output, Stool 200 Output, Urine 1100 700 600 620 300 90 Physical Exam: Moderate respiratory distress at rest Neuro-non focal,not oriented to place and time. HEENT-PERRLA Neck-JVP normal, no carotid bruits Lungs-few scattered rhonchi Heart-distant S1S2, no murmur, regular Abdomen-soft, not tender, BS+, no organomegaly,no masses Extr-1+ edema, mild right foot erythema, 1+ pulses vascular-no carotid bruit, 1+ distal pulses skin-no rash Current Medications: Current Medications Sig/Jasvir Start time Last Medication Dose Route Stop Time Status Admin Acetaminophen 650 MG Q6P PRN 09/06 0345 AC PO Acetaminophen 1,000 MG Q6P PRN 09/06 0345 AC 09/06 IV 0359 Albuterol Sulfate 3 ML Q4P PRN 09/06 1115 AC INH Ampicillin Sodium/ 3,000 MG Q8 09/07 2200 DC Sulbactam Sodium IV Sodium Chloride 100 ML Ampicillin Sodium/ 3,000 MG Q8H 09/07 1745 AC 09/08 Sulbactam Sodium IV 0238 Sodium Chloride 100 ML Ampicillin Sodium/ 3,000 MG Q6H 09/06 1545 DC 09/07 Sulbactam Sodium IV 0957 Sodium Chloride 100 ML Aspirin Buffered 81 MG DAILY 09/06 0900 AC PO Diltiazem HCl 125 MG Q10H 09/07 1100 AC 09/08 Dextrose/Water 100 ML IV 0643 Diltiazem HCl 125 MG Q8H 09/07 1000 DC 09/07 Dextrose/Water 100 ML IV 1002 Diltiazem HCl 125 MG Q12H 09/06 1500 DC 09/06 Dextrose/Water 100 ML IV 09/07 0959 2205 Doxycycline Hyclate 100 MG BID 09/06 1226 DC PO Enoxaparin Sodium 40 MG DAILY 09/06 0900 AC SC Folic Acid 1 MG DAILY 09/07 1023 AC PO Insulin Human Regular 6 UNITS .STK-MED ONE 09/07 1802 DC IV 09/07 1803 Insulin Human Regular 4 UNITS .STK-MED ONE 09/07 1215 DC IV 09/07 1216 Insulin Human Regular 0 Q6 09/06 1223 AC 09/08 SC 0643 Multivitamins 1 TAB DAILY 09/07 1023 AC PO Sodium Chloride 1,000 ML Q10H 09/06 0930 AC 09/08 IV 0100 Thiamine HCl 50 MG DAILY 09/07 1023 AC PO Results Last 48 Hrs of Labs/Mics: Laboratory Tests 09/08/17 0415: Anion Gap 17 H, Estimated GFR 17 L, Glucose 214 H, Calcium 8.5, Phosphorus 5.2 H, Magnesium 2.6 H, Total Bilirubin 3.0 H, AST 134 H, ALT 81 H, Albumin 2.4 L, CBC w Diff MAN DIFF ORDERED, RBC 4.34 L, MCV 80.6, MCH 26.5 L, MCHC 32.8 L, RDW 20.1 H, MPV 9.9, Gran % 75.6 H, Lymphocytes % 5.7 L, Monocytes % 18.5 H, Eosinophils % 0.2, Basophils % 0, Absolute Granulocytes 10.3 H, Segmented Neutrophils 68, Band Neutrophils 10 H, Absolute Lymphocytes 0.8 L, Lymphocytes 12 L, Monocytes 8, Absolute Monocytes 2.5 H, Absolute Eosinophils 0, Absolute Basophils 0, Metamyelocytes 2 H, Nucleated RBCs 1 H, Platelet Estimate DECREASED, Normocytic RBCs VERIFIED, Normochromic RBCs VERIFIED 09/07/17 0830: Troponin I 0.35 *H 09/07/17 0830: Prot Electrophoresis Pending, Total Protein (PEP) Pending, Albumin % (PEP) Pending, Zfbsq-3-Cvzmpoedq Pending, Snnmi-9-Dlfnbonio Pending, Mapl-5-Dmtqzkgc Pending, Yhsw-0-Ykodqmoy Pending, Gamma Globulins Pending, Abnorm Protein Band 1 Pending, Abnorm Protein Band 2 Pending, Abnorm Protein Band 3 Pending, Ref Lab Test Result Pending 09/07/17 0500: Lactic Acid 1.9 09/07/17 0500: Sodium Cancelled, Potassium Cancelled, Chloride Cancelled, Carbon Dioxide Cancelled, Anion Gap Cancelled, BUN Cancelled, Creatinine Cancelled, Glucose Cancelled, Calcium Cancelled, Phosphorus Cancelled, Magnesium Cancelled, Total Bilirubin Cancelled, AST Cancelled, ALT Cancelled, Albumin Cancelled 09/07/17 0200: Anion Gap 19 H, Estimated GFR 17 L, Glucose 185 H, Calcium 8.2 L, Phosphorus 4.6 H, Magnesium 2.5 H, Total Bilirubin 4.4 H, AST 197 H, ALT 102 H, Troponin I 0.41 *H, Albumin 2.5 L, CBC w Diff MAN DIFF ORDERED, RBC 4.37 L, MCV 80.3, MCH 26.7 L, MCHC 33.2, RDW 19.3 H, MPV 10.0, Gran % 80.6 H, Lymphocytes % 5.5 L, Monocytes % 13.4 H, Eosinophils % 0.5, Basophils % 0, Absolute Granulocytes 8.8 H, Segmented Neutrophils 69, Band Neutrophils 12 H, Absolute Lymphocytes 0.6 L, Lymphocytes 11 L, Monocytes 4, Absolute Monocytes 1.5 H, Absolute Eosinophils 0.1, Basophils 1, Absolute Basophils 0, Nucleated RBCs 1 H, Platelet Estimate DECREASED, Normocytic RBCs VERIFIED, Normochromic RBCs VERIFIED, ESR Westergren 116 H 09/06/17 2130: Lactic Acid Cancelled 09/06/17 1950: Anion Gap 19 H, Estimated GFR 19 L, Glucose 189 H, Calcium 7.9 L, Phosphorus 5.1 H, Magnesium 2.3, Total Bilirubin 4.6 H, AST 207 H, ALT 110 H, Troponin I 0.39 *H, Albumin 2.6 L, CBC w Diff NO MAN DIFF REQ, RBC 4.44 L, MCV 80.8, MCH 26.4 L, MCHC 32.6 L, RDW 19.3 H, MPV 10.2, Gran % 83.9 H, Lymphocytes % 3.8 L, Monocytes % 12.2 H, Eosinophils % 0.1, Basophils % 0, Absolute Granulocytes 9.6 H, Absolute Lymphocytes 0.4 L, Absolute Monocytes 1.4 H, Absolute Eosinophils 0, Absolute Basophils 0 09/06/17 1820: Lactic Acid 2.8 H 09/06/17 1430: Lactic Acid 3.2 H 09/06/17 1130: Lactic Acid 3.6 H 09/06/17 0900: pH 7.34 L, pCO2 31 L, pO2 195 H, HCO3 16 L, ABG O2 Sat (Measured) 99.0, Carboxyhemoglobin 0.2 L, O2 Concentration % 50%, Respiration Rate 22, O2 Delivery Method V60, Vent Mode ST, Expiratory Pressure 4, Inspiratory Pressure 16, Phlebotomy Draw Site LEFT RADIAL 09/06/17 0840: Urine Opiates Screen < 100, Methadone Screen 44, Barbiturate Screen < 60, Ur Phencyclidine Scrn < 6.00, Amphetamines Screen < 100, U Benzodiazepines Scrn < 85, Urine Cocaine Screen < 50, Urine Cannabis Screen < 5.00, Urine Osmolality 352, Ur Random Creatinine 103.3, U Random Total Protein 336 H, Ur Random Sodium 24 L, Ur Random Potassium 57.4, Protein/Creatinin Ratio 3.2 H, Fraction Sodium Excret 0.5 09/06/17 0825: Lactic Acid 5.3 H, Ammonia < 9 L 09/06/17 0825: Anion Gap 21 H, Estimated GFR 21 L, Glucose 166 H, Hemoglobin A1c Pending, Serum Osmolality 326 H, Calcium 8.4, Phosphorus 6.4 H, Magnesium 2.0, Total Bilirubin 5.3 H, AST 245 H, ALT 119 H, Xxd-W-Ncdmirnqrpe Pept 8990 H, Albumin 3.0 L, CBC w Diff MAN DIFF ORDERED, RBC 4.74, MCV 82.3, MCH 26.1 L, MCHC 31.7 L, RDW 19.8 H, MPV 10.3, Gran % 87.6 H, Lymphocytes % 2.5 L, Monocytes % 9.9 H, Eosinophils % 0, Basophils % 0, Absolute Granulocytes 11.6 H, Segmented Neutrophils 58, Band Neutrophils 29 H, Absolute Lymphocytes 0.3 L , Lymphocytes 3 L, Monocytes 10 H, Absolute Monocytes 1.3 H, Absolute Eosinophils 0, Absolute Basophils 0, Platelet Estimate DECREASED, Polychromasia 1+, Anisocytosis 1+ Microbiology 09/06 836 BLOOD: Blood Culture - COMP BETA STREP GROUP B 09/06 824 BLOOD: Blood Culture - COMP BETA STREP GROUP B Assessment/Plan Assessment/Plan 61 year old male with known CAD, PCI in 11/2016, ICD for sustained VT, s/p CABG in 04/2017, HTN, HLP, DM, SAS admitted with respiratory failure, septic shock ( Group B strep in blood), renal and liver failure, CVA, AF with RVR. Converted to sinus on iv cardizem, CXR c/w HFpEF. Source of infection likely his foot. Neurologically improved but he remains confused-likely metabolic encephalopathy. Initial CT head negative for acute stroke. He remains in sinus rhythm. Liver function improved. I am concerned about endocarditis/ICD leads infection. Source of stroke could be SID thrombus or endocarditis with septic embolization vs metabolic encephalopathy. Still dyspneic. He will be unable to tolerate JESUS unless intubated. Plan; continue iv cardizem continue atb ID consult Podiatry consult continue Aspirin JESUS today hold on anticoagulation unless there is clear evidence of left atrial appendage or intracardiac thrombus repeat CT head to assess for evolving stroke Discussed with house staff, nurse Patient is critically ill as evidenced by respiratory failure, septic shock, CVA , multiorgan failure. He required 50 minutes of my undivided attention in the past 24 hours. Interventions included management of his respiratory status, treatment of atrial fibrillation, metabolic abnormalites and multiorgan failure. Continue telemetry? Yes
[2017-09-08 08:00] VITALS: BP 165/84
--- NOTE | 2017-09-08 09:26 | CT SCAN REPORT ---
EXAMINATION: CT HEAD WITHOUT CONTRAST CLINICAL INFORMATION: Evaluate for stroke. COMPARISON: CT head most recent prior dated 09/05/2017 TECHNIQUE: Contiguous axial imaging was performed from the skull base to vertex without intravenous administration of contrast. DLP: 695.03 mGy-cm FINDINGS: Examination is slightly degraded by patient motion. Slight head tilt is also limiting the assessment. There is no evidence of acute intracranial hemorrhage or territorial infarction. No abnormal mass effect or midline shift is seen. [place] to white matter differentiation is well preserved. No extra-axial fluid collections are identified. There is subtle low-attenuation noted in the inferior aspect posterior limb right internal capsule/right hippocampal junction. (Series 2 image 26). Findings may represent evolving infarct. Additional region of subtle low-attenuation noted in the cortical/subcortical region right posterior frontal parafalcine region. (Series 2 image 49). This finding appears slightly more conspicuous on the current study. Findings may represent age indeterminate small cortical infarct. The osseous structures and soft tissues are normal. The mastoid air cells and visualized portions of the paranasal sinuses are well aerated. IMPRESSION: 1. New subtle low-attenuation noted in the junction of the posterior limb and internal capsule and right hippocampal junction. Evolving infarct in the appropriate clinical setting cannot be excluded. Further assessment with MRI recommended. 2. Subtle cortical low-attenuation right frontal parafalcine region appears more conspicuous on the current examination. Findings may represent small cortical infarct. The above-mentioned finding should be further assessed with MRI to confirm and assess the age of infarct. Critical results discussed with Dr. Bowens at 9:18 AM on 09/08/2017.
--- NOTE | 2017-09-08 10:07 | PN- Nephrology ---
Assessment/Plan Nephrology Assessment: DEMETRIO - Likely 2/2 ischemic ATN in the setting of A fib with RVR and renal hypoperfusion. Unfortunately compounded by contrast administration on 09/05. Renal function has stabilized. Although I think that the proteinuria is 2/2 diabetic nephropathy (longstanding and not well controlled) and hematuria is from palencia placement, given the bacteremia, cannot exclude infection related glomerulonephritis (can be better assessed with checking complements). Proteinuria - discrepancy between UA and Uprot/Cr raises suspicion for paraprotein for which he should be evaluated. Albumin level is low and proteinuria is nephrotic range. Paraprotein work-up sent. Should note as above that infection related GN is also on the differential. Group B Strep Bacteremia - ?new cerebral infarct - undergoing JESUS to look for endocarditis. Suggestion: -Would also send C3, C4 (infection related GN) -Given plans for intubation for JESUS, would hold off on diuresis for now - if there's any way to assess the IVC and/or filling pressures with the JESUS, that might be helpful in better assessing volume status - given that I think this is ATN for which the treatment is supportive, he may need diuresis at some point Please call [phone] with ?'s Subjective Subjective: SCr stable at 3.6 1920cc UOP yesterday; 1100cc UOP thus far today Paraprotein work-up pending; HgA1c 9.2% Blood cx positive for Group B Strep; CT lower ext neg for abscess CT Head with new possible evolving infarct Plans for JESUS (TTE unable to determine presence of vegetation - noted to be normal LVEF) Objective Vital Signs and I&Os Vital Signs Date Time Temp Pulse Resp B/P B/P Pulse O2 O2 Flow FiO2 Mean Ox Delivery Rate 09/08 0753 93 Nasal 50% Cannula 09/08 0230 92 Nasal 50% Cannula 09/08 0024 86 97 09/08 0000 94 BIPAP 40% 09/08 0000 98.0 84 30 130/70 94 BIPAP 40% 09/07 2324 85 95 09/07 2013 94 Nasal 45% Cannula 09/08 1999 93 Nasal 45% Cannula 09/07 1600 95 Nasal 50% Cannula 09/07 1600 97.2 79 24 140/80 95 Nasal 50% Cannula 09/07 1348 96 Nasal 50% Cannula 09/07 1200 95 Nasal 50% Cannula Intake & Output 09/08 1600 09/08 0400 09/07 1600 09/07 0400 09/06 1600 09/06 0400 Intake Total 311 752 5447.5 925 1629 1000 Output Total 3193 424 5888 500 215 Balance -212 -40 742.5 425 1414 1000 Intake, IV 853 105 2722.5 925 1629 1000 Intake, Oral 560 0 0 0 Number 1 1 3 2 Bowel Movements Output, Stool 200 Output, Urine 0679 803 4286 300 215 Patient 253 lb Weight Weight Bed scale Measurement Method Physical Exam: Gen - tachypneic, ill appearing HEENT - JVP visible CV - RRR, no m/r/g Chest - clear anteriorly Abd - soft, NTND Ext - +RLE edema Neuro - oriented Current Medications: Current Medications Sig/Jasvir Start time Last Medication Dose Route Stop Time Status Admin Acetaminophen 650 MG Q6P PRN 09/06 0345 AC PO Acetaminophen 1,000 MG Q6P PRN 09/06 0345 AC 09/06 IV 0359 Albuterol Sulfate 3 ML Q4P PRN 09/06 1115 AC INH Ampicillin Sodium/ 3,000 MG Q8 09/07 2200 DC Sulbactam Sodium IV Sodium Chloride 100 ML Ampicillin Sodium/ 3,000 MG Q8H 09/07 1745 AC 09/08 Sulbactam Sodium IV 0238 Sodium Chloride 100 ML Ampicillin Sodium/ 3,000 MG Q6H 09/06 1545 DC 09/07 Sulbactam Sodium IV 0957 Sodium Chloride 100 ML Aspirin Buffered 81 MG DAILY 09/06 0900 AC PO Diltiazem HCl 125 MG Q10H 09/07 1100 AC 09/08 Dextrose/Water 100 ML IV 0643 Diltiazem HCl 125 MG Q8H 09/07 1000 DC 09/07 Dextrose/Water 100 ML IV 1002 Doxycycline Hyclate 100 MG BID 09/06 1226 DC PO Enoxaparin Sodium 40 MG DAILY 09/06 0900 AC SC Folic Acid 1 MG DAILY 09/07 1023 AC PO Insulin Human Regular 4 UNITS .STK-MED ONE 09/07 2351 DC IV 09/07 2352 Insulin Human Regular 6 UNITS .STK-MED ONE 09/07 1802 DC IV 09/07 1803 Insulin Human Regular 4 UNITS .STK-MED ONE 09/07 1215 DC IV 09/07 1216 Insulin Human Regular 0 Q6 09/06 1223 AC 09/08 SC 0643 Multivitamins 1 TAB DAILY 09/07 1023 AC PO Sodium Chloride 1,000 ML Q6H 09/08 0815 AC IV Sodium Chloride 1,000 ML Q10H 09/06 0930 DC 09/08 IV 0100 Thiamine HCl 50 MG DAILY 09/07 1023 AC PO Results Pertinent Lab Results: Laboratory Tests 09/08 09/07 09/07 0415 0830 0830 Chemistry Sodium (137 - 145 mmol/L) 144 Potassium (3.5 - 5.1 mmol/L) 3.6 Chloride (98 - 107 mmol/L) 109 H Carbon Dioxide (22 - 30 mmol/L) 18 L Anion Gap (5 - 16) 17 H BUN (9 - 20 mg/dL) 98 H Creatinine (0.7 - 1.2 mg/dL) 3.6 H Estimated GFR (>60 ml/min) 17 L Glucose (65 - 99 mg/dL) 214 H Calcium (8.4 - 10.2 mg/dL) 8.5 Phosphorus (2.5 - 4.5 mg/dL) 5.2 H Magnesium (1.6 - 2.3 mg/dL) 2.6 H Total Bilirubin (0.2 - 1.3 mg/dL) 3.0 H AST (17 - 59 U/L) 134 H ALT (21 - 72 U/L) 81 H Troponin I (<0.11 ng/ml) 0.35 *H Prot Electrophoresis Pending Total Protein (PEP) Pending Albumin (3.5 - 5.0 g/dL) 2.4 L Albumin % (PEP) Pending [id number]-Ephftxaxe Pending Umzep-[id number] Pending Mbkn-6-Aadpcyqu Pending Edgw-3-Raxcckyi Pending Gamma Globulins Pending Abnorm Protein Band 1 Pending Abnorm Protein Band 2 Pending Abnorm Protein Band 3 Pending Hematology CBC w Diff MAN DIFF ORDERED WBC (4.8 - 10.8 /CUMM) 13.6 H RBC (4.70 - 6.10 /CUMM) 4.34 L Hgb (14.0 - 18.0 G/DL) 11.5 L Hct (42 - 52 %) 35.0 L MCV (80.0 - 94.0 FL) 80.6 MCH (27.0 - 31.0 PG) 26.5 L MCHC (33.0 - 37.0 G/DL) 32.8 L RDW (11.5 - 14.5 %) 20.1 H Plt Count (130 - 400 /CUMM) 34 L MPV (7.4 - 10.4 FL) 9.9 Gran % (42.2 - 75.2 %) 75.6 H Lymphocytes % (20.5 - 51.1 %) 5.7 L Monocytes % (1.7 - 9.3 %) 18.5 H Eosinophils % (0 - 5 %) 0.2 Basophils % (0.0 - 2.0 %) 0 Absolute Granulocytes (1.4 - 6.5 /CUMM) 10.3 H Segmented Neutrophils (42.2 - 75.2 %) 68 Band Neutrophils (0.0 - 5.0 %) 10 H Absolute Lymphocytes (1.2 - 3.4 /CUMM) 0.8 L Lymphocytes (20.5 - 51.1 %) 12 L Monocytes (1.7 - 9.3 %) 8 Absolute Monocytes (0.10 - 0.60 /CUMM) 2.5 H Absolute Eosinophils (0.0 - 0.7 /CUMM) 0 Absolute Basophils (0.0 - 0.2 /CUMM) 0 Metamyelocytes (0.0 - 1.0 %) 2 H Nucleated RBCs (0.0 - 0.0 /100WBC) 1 H Platelet Estimate (ADEQUATE) DECREASED Normocytic RBCs VERIFIED Normochromic RBCs VERIFIED Miscellaneous Ref Lab Test Result Pending 09/07 09/07 09/07 0500 0500 0200 Chemistry Sodium (137 - 145 mmol/L) Cancelled 143 Potassium (3.5 - 5.1 mmol/L) Cancelled 3.9 Chloride (98 - 107 mmol/L) Cancelled 106 Carbon Dioxide (22 - 30 mmol/L) Cancelled 17 L Anion Gap (5 - 16) Cancelled 19 H BUN (9 - 20 mg/dL) Cancelled 88 H Creatinine (0.7 - 1.2 mg/dL) Cancelled 3.6 H Estimated GFR (>60 ml/min) 17 L Glucose (65 - 99 mg/dL) Cancelled 185 H Lactic Acid (0.7 - 2.1 mmol/L) 1.9 Calcium (8.4 - 10.2 mg/dL) Cancelled 8.2 L Phosphorus (2.5 - 4.5 mg/dL) Cancelled 4.6 H Magnesium (1.6 - 2.3 mg/dL) Cancelled 2.5 H Total Bilirubin (0.2 - 1.3 mg/dL) Cancelled 4.4 H AST (17 - 59 U/L) Cancelled 197 H ALT (21 - 72 U/L) Cancelled 102 H Troponin I (<0.11 ng/ml) 0.41 *H Albumin (3.5 - 5.0 g/dL) Cancelled 2.5 L Hematology CBC w Diff MAN DIFF ORDERED WBC (4.8 - 10.8 /CUMM) 10.9 H RBC (4.70 - 6.10 /CUMM) 4.37 L Hgb (14.0 - 18.0 G/DL) 11.7 L Hct (42 - 52 %) 35.1 L MCV (80.0 - 94.0 FL) 80.3 MCH (27.0 - 31.0 PG) 26.7 L MCHC (33.0 - 37.0 G/DL) 33.2 RDW (11.5 - 14.5 %) 19.3 H Plt Count (130 - 400 /CUMM) 32 L MPV (7.4 - 10.4 FL) 10.0 Gran % (42.2 - 75.2 %) 80.6 H Lymphocytes % (20.5 - 51.1 %) 5.5 L Monocytes % (1.7 - 9.3 %) 13.4 H Eosinophils % (0 - 5 %) 0.5 Basophils % (0.0 - 2.0 %) 0 Absolute Granulocytes (1.4 - 6.5 /CUMM) 8.8 H Segmented Neutrophils (42.2 - 75.2 %) 69 Band Neutrophils (0.0 - 5.0 %) 12 H Absolute Lymphocytes (1.2 - 3.4 /CUMM) 0.6 L Lymphocytes (20.5 - 51.1 %) 11 L Monocytes (1.7 - 9.3 %) 4 Absolute Monocytes (0.10 - 0.60 /CUMM) 1.5 H Absolute Eosinophils (0.0 - 0.7 /CUMM) 0.1 Basophils (0.0 - 2.0 %) 1 Absolute Basophils (0.0 - 0.2 /CUMM) 0 Nucleated RBCs (0.0 - 0.0 /100WBC) 1 H Platelet Estimate (ADEQUATE) DECREASED Normocytic RBCs VERIFIED Normochromic RBCs VERIFIED ESR Westergren (0 - 10 MM) 116 H 09/06 09/06 09/06 2130 1950 1820 Chemistry Sodium (137 - 145 mmol/L) 141 Potassium (3.5 - 5.1 mmol/L) 4.0 Chloride (98 - 107 mmol/L) 104 Carbon Dioxide (22 - 30 mmol/L) 19 L Anion Gap (5 - 16) 19 H BUN (9 - 20 mg/dL) 80 H Creatinine (0.7 - 1.2 mg/dL) 3.4 H Estimated GFR (>60 ml/min) 19 L Glucose (65 - 99 mg/dL) 189 H Lactic Acid (0.7 - 2.1 mmol/L) Cancelled 2.8 H Calcium (8.4 - 10.2 mg/dL) 7.9 L Phosphorus (2.5 - 4.5 mg/dL) 5.1 H Magnesium (1.6 - 2.3 mg/dL) 2.3 Total Bilirubin (0.2 - 1.3 mg/dL) 4.6 H AST (17 - 59 U/L) 207 H ALT (21 - 72 U/L) 110 H Troponin I (<0.11 ng/ml) 0.39 *H Albumin (3.5 - 5.0 g/dL) 2.6 L Hematology CBC w Diff NO MAN DIFF REQ WBC (4.8 - 10.8 /CUMM) 11.5 H RBC (4.70 - 6.10 /CUMM) 4.44 L Hgb (14.0 - 18.0 G/DL) 11.7 L Hct (42 - 52 %) 35.8 L MCV (80.0 - 94.0 FL) 80.8 MCH (27.0 - 31.0 PG) 26.4 L MCHC (33.0 - 37.0 G/DL) 32.6 L RDW (11.5 - 14.5 %) 19.3 H Plt Count (130 - 400 /CUMM) 36 L MPV (7.4 - 10.4 FL) 10.2 Gran % (42.2 - 75.2 %) 83.9 H Lymphocytes % (20.5 - 51.1 %) 3.8 L Monocytes % (1.7 - 9.3 %) 12.2 H Eosinophils % (0 - 5 %) 0.1 Basophils % (0.0 - 2.0 %) 0 Absolute Granulocytes (1.4 - 6.5 /CUMM) 9.6 H Absolute Lymphocytes (1.2 - 3.4 /CUMM) 0.4 L Absolute Monocytes (0.10 - 0.60 /CUMM) 1.4 H Absolute Eosinophils (0.0 - 0.7 /CUMM) 0 Absolute Basophils (0.0 - 0.2 /CUMM) 0 09/06 09/06 09/06 09/06 09/06 1430 1130 0900 0840 0825 Blood Gas pH (7.35 - 7.45 PH) 7.34 L pCO2 (35 - 45 TORR) 31 L pO2 (80 - 100 TORR) 195 H HCO3 (21 - 28 MEQ/L) 16 L ABG O2 Sat (Measured) (>96.0 %) 99.0 Carboxyhemoglobin (1.5 - 5.0 %) 0.2 L O2 Concentration % 50% Respiration Rate (BPM) 22 O2 Delivery Method V60 Vent Mode ST Expiratory Pressure (CM H2O P) 4 Inspiratory Pressure (CM H2O P) 16 Chemistry Lactic Acid (0.7 - 2.1 mmol/L) 3.2 H 3.6 H 5.3 H Ammonia (9 - 30 umol/L) < 9 L Miscellaneous Phlebotomy Draw Site LEFT RADIAL Toxicology Urine Opiates Screen (>2000 NG/ML) < 100 Methadone Screen (>300 NG/ML) 44 Barbiturate Screen (>200 NG/ML) < 60 Ur Phencyclidine Scrn (>25 NG/ML) < 6.00 Amphetamines Screen (>1000 NG/ML) < 100 U Benzodiazepines Scrn (>200 NG/ML) < 85 Urine Cocaine Screen (>300 NG/ML) < 50 Urine Cannabis Screen (>50 NG/ML) < 5.00 Urines Urine Osmolality (300 - 1000 MOSM/KG) 352 Ur Random Creatinine (mg/dL) 103.3 U Random Total Protein (0 - 12 mg/dL) 336 H Ur Random Sodium (30 - 90 mmol/L) 24 L Ur Random Potassium (mmol/L) 57.4 Protein/Creatinin Ratio (< 0.2) 3.2 H Fraction Sodium Excret (<1% %) 0.5 09/06 09/06 0825 0686 Chemistry Sodium (137 - 145 mmol/L) 142 143 Potassium (3.5 - 5.1 mmol/L) 4.2 3.7 Chloride (98 - 107 mmol/L) 101 103 Carbon Dioxide (22 - 30 mmol/L) 19 L 17 L Anion Gap (5 - 16) 21 H 23 H BUN (9 - 20 mg/dL) 67 H 65 H Creatinine (0.7 - 1.2 mg/dL) 3.0 H 2.8 H Estimated GFR (>60 ml/min) 21 L 23 L Glucose (65 - 99 mg/dL) 166 H 147 H Hemoglobin A1c (4.2 - 5.8 %) 9.2 H Serum Osmolality (285 - 295 MOSM/KG) 326 H Calcium (8.4 - 10.2 mg/dL) 8.4 8.4 Phosphorus (2.5 - 4.5 mg/dL) 6.4 H 5.1 H Magnesium (1.6 - 2.3 mg/dL) 2.0 1.9 Total Bilirubin (0.2 - 1.3 mg/dL) 5.3 H 5.3 H AST (17 - 59 U/L) 245 H 237 H ALT (21 - 72 U/L) 119 H 111 H Troponin I (<0.11 ng/ml) 0.09 Fym-A-Oeuhpcbevat Pept (<125 pg/mL) 8990 H Albumin (3.5 - 5.0 g/dL) 3.0 L 2.8 L Triglycerides (<150 mg/dL) 439 H Cholesterol (< 200 MG/DL) 78 LDL Cholesterol Direct (<100 mg/dL) < 30.00 LDL Cholesterol, Calc (65 - 129 mg/dL) ND HDL Cholesterol (40 - 60 mg/dL) 14 L Cholesterol/HDL Ratio (0.00 - 4.88 %) 5.6 H Hematology CBC w Diff MAN DIFF ORDERED MAN DIFF ORDERED WBC (4.8 - 10.8 /CUMM) 13.3 H 15.1 H RBC (4.70 - 6.10 /CUMM) 4.74 4.71 Hgb (14.0 - 18.0 G/DL) 12.4 L 12.5 L Hct (42 - 52 %) 39.0 L 38.6 L MCV (80.0 - 94.0 FL) 82.3 81.9 MCH (27.0 - 31.0 PG) 26.1 L 26.5 L MCHC (33.0 - 37.0 G/DL) 31.7 L 32.3 L RDW (11.5 - 14.5 %) 19.8 H 19.7 H Plt Count (130 - 400 /CUMM) 47 L 47 L MPV (7.4 - 10.4 FL) 10.3 11.1 H Gran % (42.2 - 75.2 %) 87.6 H 87.8 H Lymphocytes % (20.5 - 51.1 %) 2.5 L 2.6 L Monocytes % (1.7 - 9.3 %) 9.9 H 9.6 H Eosinophils % (0 - 5 %) 0 0 Basophils % (0.0 - 2.0 %) 0 0 Absolute Granulocytes (1.4 - 6.5 /CUMM) 11.6 H 13.3 H Segmented Neutrophils (42.2 - 75.2 %) 58 61 Band Neutrophils (0.0 - 5.0 %) 29 H 26 H Absolute Lymphocytes (1.2 - 3.4 /CUMM) 0.3 L 0.4 L Lymphocytes (20.5 - 51.1 %) 3 L 4 L Monocytes (1.7 - 9.3 %) 10 H 9 Absolute Monocytes (0.10 - 0.60 /CUMM) 1.3 H 1.4 H Absolute Eosinophils (0.0 - 0.7 /CUMM) 0 0 Absolute Basophils (0.0 - 0.2 /CUMM) 0 0 Platelet Estimate (ADEQUATE) DECREASED DECREASED Polychromasia 1+ 1+ Anisocytosis 1+ 1+ 09/06 09/06 0600 0500 Blood Gas pH (7.35 - 7.45 PH) 7.34 L pCO2 (35 - 45 TORR) 32 L pO2 (80 - 100 TORR) 47 *L HCO3 (21 - 28 MEQ/L) 17 L ABG O2 Sat (Measured) (>96.0 %) 79.0 L P-50 (Temp Corrected) Y Carboxyhemoglobin (1.5 - 5.0 %) 0.7 L O2 Concentration % 4 LPM Temperature (97.0 - 100.0 FARH) 97.2 O2 Delivery Method N/C Chemistry Troponin I Cancelled Miscellaneous Phlebotomy Draw Site LEFT RADIAL 09/06 09/06 0200 0129 Chemistry Troponin I (<0.11 ng/ml) 0.10 Urines Urinalysis HEAVY H Urine Color (YEL,AMB,STR) BLDY H Urine Clarity (CLEAR) TURBD H Urine pH (5.0 - 8.0) 5.5 Ur Specific [place] (1.001 - 1.035) 1.020 Urine Protein (NEG,<30 MG/DL) 100 H Urine Ketones (NEG) NEG Urine Nitrite (NEG) POS H Urine Bilirubin (NEG) NEG Urine Urobilinogen (0.1 - 1.0 EU/dl) 1.0 Ur Leukocyte Esterase (NEG) NEG Ur Microscopic SEDIMENT EXAMINED Urine RBC (0 - 5 /HPF) PACKD H Urine WBC (0 - 2 /HPF) 10-15 H Ur Epithelial Cells (NONE,FEW) FEW Urine Bacteria (NEG/NONE) MOD H Granular Casts (NONE /LPF) 5-10 H Urine Hemoglobin (NEG) LARGE H Urine Glucose (N MG/DL) 250 H 09/05 1810 Chemistry Sodium (137 - 145 mmol/L) 140 Potassium (3.5 - 5.1 mmol/L) 3.8 Chloride (98 - 107 mmol/L) 99 Carbon Dioxide (22 - 30 mmol/L) 18 L Anion Gap (5 - 16) 22 H BUN (9 - 20 mg/dL) 58 H Creatinine (0.7 - 1.2 mg/dL) 2.3 H Estimated GFR (>60 ml/min) 29 L BUN/Creatinine Ratio (7 - 25 %) 25.2 H Glucose (65 - 99 mg/dL) 173 H Calcium (8.4 - 10.2 mg/dL) 8.8 Total Bilirubin (0.2 - 1.3 mg/dL) 4.3 H AST (17 - 59 U/L) 193 H ALT (21 - 72 U/L) 105 H Alkaline Phosphatase (< 127 U/L) 188 H Troponin I (<0.11 ng/ml) 0.09 Total Protein (6.3 - 8.2 g/dL) 6.5 Albumin (3.5 - 5.0 g/dL) 3.1 L Globulin (1.9 - 4.2 gm/dL) 3.4 Albumin/Globulin Ratio (1.1 - 2.2 %) 0.9 L Coagulation PT (9.4 - 12.5 SEC) 15.7 H INR (0.90 - 1.17) 1.44 H APTT (25 - 37 SEC) 35 D-Dimer High Sensitivty (0 - 243 ng/ml) 6199 H Hematology CBC w Diff MAN DIFF ORDERED WBC (4.8 - 10.8 /CUMM) 12.8 H RBC (4.70 - 6.10 /CUMM) 4.76 Hgb (14.0 - 18.0 G/DL) 12.6 L Hct (42 - 52 %) 38.5 L MCV (80.0 - 94.0 FL) 81.0 MCH (27.0 - 31.0 PG) 26.5 L MCHC (33.0 - 37.0 G/DL) 32.7 L RDW (11.5 - 14.5 %) 19.2 H Plt Count (130 - 400 /CUMM) 73 L MPV (7.4 - 10.4 FL) 11.1 H Gran % (42.2 - 75.2 %) 93.2 H Lymphocytes % (20.5 - 51.1 %) 1.7 L Monocytes % (1.7 - 9.3 %) 5.0 Eosinophils % (0 - 5 %) 0.1 Basophils % (0.0 - 2.0 %) 0 Absolute Granulocytes (1.4 - 6.5 /CUMM) 11.9 H Segmented Neutrophils (42.2 - 75.2 %) 78 H Band Neutrophils (0.0 - 5.0 %) 21 H Absolute Lymphocytes (1.2 - 3.4 /CUMM) 0.2 L Lymphocytes (20.5 - 51.1 %) 1 L Absolute Monocytes (0.10 - 0.60 /CUMM) 0.6 Absolute Eosinophils (0.0 - 0.7 /CUMM) 0 Absolute Basophils (0.0 - 0.2 /CUMM) 0 Platelet Estimate (ADEQUATE) VERIFIED BY SMEAR Anisocytosis 1+ Other Body Source Fld Total RBCs Counted (%) 100 Imaging/Other Studies: TTE CONCLUSIONS 1. This was a technically difficult and very limited study due to the patient's body habitus, this clinical status, and the fact that the patient was very tachycardic during the test. 2. Fibrocalcific changes are present in the aortic valve. The valve was not well-visualized anatomically. The noncoronary leaflet appears to be diffusely thickened. The possibility of a associated vegetative lesion cannot be excluded by this study. Accurate assessment of aortic valve function was not possible. 3. Thickening intoxication of the mitral leaflets is present with no evidence of valvular stenosis. 4. Moderate left atrial enlargement is present. 5. No significant pericardial fluid was identified. 6. Left ventricular chamber size is normal. Image quality was suboptimal. Additional images were obtained following the administration of IV contrast. The ejection fraction appears normal. Accurate wall motion assessment was not possible but there may be focal hypokinesia at the apex. 7. The right heart structures were not well visualized. Right ventricular systolic pressure cannot be accurately assessed. 8. A follow-up study might be useful in the patient's heart rate is better controlled. 9. A transesophageal echocardiogram is suggested to better exclude the possibility of vegetative lesions Chest X-ray 09/06 IMPRESSION: 1. There is cardiomegaly and mild pulmonary vascular congestion. No overt pulmonary edema is seen. 2. Lung volumes are low, with crowding of bronchovascular and pulmonary parenchymal markings. 3. There is stable mild elevation of the right hemidiaphragm. Abd US RIGHT KIDNEY: Normal. No hydronephrosis. No renal calculi or focal parenchymal lesions. The kidney measures 13.0 cm in maximum dimension. LEFT KIDNEY: Normal. No hydronephrosis. No renal calculi or focal parenchymal lesions. The kidney measures 13.1 cm in maximum dimension.
--- NOTE | 2017-09-08 11:02 | PN- Infect Dx ---
Subjective Subjective: Afebrile without complaints. His respiratory status remains tenuous and elective intubation is being planned. Objective Last 24 Hrs of Vital Signs/I&O Vital Signs Date Time Temp Pulse Resp B/P B/P Pulse O2 O2 Flow FiO2 Mean Ox Delivery Rate 09/08 0753 93 Nasal 50% Cannula 09/08 0230 92 Nasal 50% Cannula 09/08 0024 86 97 09/08 0000 94 BIPAP 40% 09/08 0000 98.0 84 30 130/70 94 BIPAP 40% 09/07 2324 85 95 09/07 2012 94 Nasal 45% Cannula 09/08 1999 93 Nasal 45% Cannula 09/07 1600 95 Nasal 50% Cannula 09/07 1600 97.2 79 24 140/80 95 Nasal 50% Cannula 09/07 1348 96 Nasal 50% Cannula 09/07 1200 95 Nasal 50% Cannula Intake & Output 09/08 1600 09/08 0800 09/08 0000 Intake Total 888 660 Output Total 1100 700 Balance -212 -40 Intake, IV 888 100 Intake, Oral 560 Number 1 1 Bowel Movements Output, Urine 1100 700 Physical Exam Other Physical Findings: He appears in mild respiratory distress, on high flow oxygen Lungs scattered rhonchi Heart regular rhythm with no murmur appreciated Abdomen is soft, nontender with positive bowel sounds Extremities right foot swelling over the dorsum, tender to palpation, with no erythema Neuro without any focality Barber catheter remains in place Results Last 24 Hours of Lab Results: Laboratory Tests 09/08 0415 Chemistry Sodium (137 - 145 mmol/L) 144 Potassium (3.5 - 5.1 mmol/L) 3.6 Chloride (98 - 107 mmol/L) 109 H Carbon Dioxide (22 - 30 mmol/L) 18 L Anion Gap (5 - 16) 17 H BUN (9 - 20 mg/dL) 98 H Creatinine (0.7 - 1.2 mg/dL) 3.6 H Estimated GFR (>60 ml/min) 17 L Glucose (65 - 99 mg/dL) 214 H Calcium (8.4 - 10.2 mg/dL) 8.5 Phosphorus (2.5 - 4.5 mg/dL) 5.2 H Magnesium (1.6 - 2.3 mg/dL) 2.6 H Total Bilirubin (0.2 - 1.3 mg/dL) 3.0 H AST (17 - 59 U/L) 134 H ALT (21 - 72 U/L) 81 H Albumin (3.5 - 5.0 g/dL) 2.4 L Hematology CBC w Diff MAN DIFF ORDERED WBC (4.8 - 10.8 /CUMM) 13.6 H RBC (4.70 - 6.10 /CUMM) 4.34 L Hgb (14.0 - 18.0 G/DL) 11.5 L Hct (42 - 52 %) 35.0 L MCV (80.0 - 94.0 FL) 80.6 MCH (27.0 - 31.0 PG) 26.5 L MCHC (33.0 - 37.0 G/DL) 32.8 L RDW (11.5 - 14.5 %) 20.1 H Plt Count (130 - 400 /CUMM) 34 L MPV (7.4 - 10.4 FL) 9.9 Gran % (42.2 - 75.2 %) 75.6 H Lymphocytes % (20.5 - 51.1 %) 5.7 L Monocytes % (1.7 - 9.3 %) 18.5 H Eosinophils % (0 - 5 %) 0.2 Basophils % (0.0 - 2.0 %) 0 Absolute Granulocytes (1.4 - 6.5 /CUMM) 10.3 H Segmented Neutrophils (42.2 - 75.2 %) 68 Band Neutrophils (0.0 - 5.0 %) 10 H Absolute Lymphocytes (1.2 - 3.4 /CUMM) 0.8 L Lymphocytes (20.5 - 51.1 %) 12 L Monocytes (1.7 - 9.3 %) 8 Absolute Monocytes (0.10 - 0.60 /CUMM) 2.5 H Absolute Eosinophils (0.0 - 0.7 /CUMM) 0 Absolute Basophils (0.0 - 0.2 /CUMM) 0 Metamyelocytes (0.0 - 1.0 %) 2 H Nucleated RBCs (0.0 - 0.0 /100WBC) 1 H Platelet Estimate (ADEQUATE) DECREASED Normocytic RBCs VERIFIED Normochromic RBCs VERIFIED Last 24 Hours of [place] Results: Blood cultures September 07 negative Urine culture September 06 negative Recent Imaging Studies: CT of the head September 08 reveals a new subtle low-attenuation in the junction of the posterior limb and internal capsule and right hippocampal junction, suggesting an evolving infarct, and subtle cortical low-attenuation in the right frontal parafalcine region, possibly representing a small cortical infarct CT of the right lower extremity reveals fragmented displaced fracture fragments of the navicular and mild impaction of the distal talus suggesting a neuropathic foot, with numerous subchondral cysts/erosions throughout the midfoot and with diffuse soft tissue and subcutaneous edema without any focal fluid collection Echocardiogram September 06, apparently a technically difficult and limited study, reveals fibrocalcific changes in the aortic valve, with a diffusely thickened noncoronary leaflet, and thickened mitral leaflets Assessment/Plan ID Impression: Remains critically ill, with respiratory failure, for which he is to be intubated shortly, renal failure, likely multifactorial but stable, evolving infarct/infarcts noted on the repeat CT of the head, possibly embolic secondary to endocarditis or ischemic related to transient hypotension, and persistent thrombocytopenia, likely secondary to sepsis. He remains afebrile but his white blood cell count is increasing on Unasyn, Day 2 of treatment for Group B strep sepsis/possible endocarditis or infected AICD/pacemaker, with the source still unclear. Am most concerned about the right foot inflammation, though the CT scan does not reveal any discrete collection and is more suggestive of a neuropathic joint. Unfortunately the AICD/pacemaker precludes an MRI. He does have a history of debridement of both great toes approximately 3 years prior to admission in [place] but this is of unclear relevance to his current problem. Suggestion: 1. Await Podiatry evaluation 2. Would pursue JESUS 3. Continue Unasyn
--- NOTE | 2017-09-08 12:51 | RADIOLOGY REPORT ---
EXAMINATION: XR PORTABLE CHEST CLINICAL INFORMATION: Assess endotracheal tube position COMPARISON: Chest x-ray dated 09/06/2017 TECHNIQUE: Portable frontal view of the chest was obtained. FINDINGS: Interval placement of endotracheal tube which terminates approximately 5 cm above biju. Dual lead left-sided isthmic device in place. Status post median sternotomy. Stable cardiomegaly. Interval worsening vascular congestion and bilateral interstitial edema. Trace pleural effusion. Hazy opacity noted in the retrocardiac region left base likely representing infiltrate or atelectasis. IMPRESSION: Endotracheal tube terminates approximately 5 cm above the biju. Worsening vascular congestion and bilateral interstitial edema. Increasing opacity retrocardiac region left base consistent with infiltrate or atelectasis. Trace effusion suspected.
[2017-09-08 15:16] LABS: PT 14.7 SEC (9.4-12.5); PTT 33 SEC (25-37)
[2017-09-08 16:00] VITALS: BP 90/40
--- NOTE | 2017-09-08 19:11 | Cons- Hematology ---
General Information and HPI Consulting Request Date of Consult: 09/08/17 Requested By: Cheng GARCIA,Yordy Fermin Reason for Consult: Thrombocytopenia Source of Information: old records Exam Limitations: unable to give history, clinical condition History of Present Illness: Mr. Rooney is a 61-year-old man with DM, HTN, CAD s/p DE, CABG, AICD/pacemaker, prostate cancer s/p TURP, cirrhosis, and recurrent cellulitis of the left thigh s/p right great toe debridement who presented to the hospital with slurred speech and left facial drop for a few days. He has been having increasing fatigue with poor oral intake. On admission, he was noted to be afebrile. His blood work demonstrated WBC of 13,000 and 21% bands. Platelet count was 73,000. His creatinine was 2.3. Bilirubin was 4.3. AST and ALT were elevated. PT and INR were elevated. CT of the head was negative for any acute process. CTA of the head and neck was negative. Chest x-ray revealed cardiomegaly with pulmonary vascular congestion and mild bibasilar atelectasis. He was admitted to the ICU for monitoring. His respiratory status continues to worsens. He was intubated today. His renal function and thrombocytopenia have worsened. Blood cultures have grew beta strep group B. He is uable to provide history due to intubation and sedation. Allergies/Medications Allergies: Coded Allergies: No Known Allergies (02/19/16) Home Med List: Aspirin (Aspirin*) 81 MG TAB.CHEW 1 TAB PO DAILY HEART HEALTH (Reported) Atorvastatin Calcium 80 MG TABLET 1 TAB PO 1800 CHOLESTEROL (Reported) Bromocriptine Mesylate (Cycloset) 0.8 MG TABLET 1 TAB PO AD DM (Reported) Clopidogrel Bisulfate (Plavix) 75 MG TABLET 1 TAB PO DAILY HEART Please take as prescribed. Colchicine 0.6 MG TABLET 1 TAB PO BID GOUT (Reported) Empagliflozin (Jardiance) 25 MG TABLET 1 TAB PO DAILY DIABETES (Reported) Famotidine 20 MG TABLET 1 TAB PO BID GI (Reported) Insulin Aspart, Recombinant (Novolog Flexpen) 100 UNIT/ML INSULN.PEN DM ( Reported) Insulin Glargine,Hum.rec.anlog (Basaglar Kwikpen U-100) 100 UNIT/ML (3 ML) INSULN.PEN 20 UNITS SC QAM DM (Reported) Magnesium Oxide 400 MG TABLET 1 TAB PO BID SUPPLEMENT (Reported) Melatonin 3 MG TABLET 2 TAB PO QPM SLEEP (Reported) Metformin HCl 1,000 MG TABLET 1 TAB PO BID DIABETES (Reported) Metoprolol Tartrate 50 MG TABLET 1 TAB PO BID HEART/BP (Reported) Pantoprazole Sodium (Protonix) 40 MG TABLET.DR 1 TAB PO BID ULCER Please take as prescribed. Suvorexant (Belsomra) 20 MG TABLET 1 TAB PO QPM SLEEP (Reported) Valsartan 320 MG TABLET 1 TAB PO DAILY HEART (Reported) Current Medications: Current Medications Sig/Jasvir Start time Last Medication Dose Route Stop Time Status Admin Acetaminophen 650 MG Q6P PRN 09/06 034 AC PO Acetaminophen 1,000 MG Q6P PRN 09/06 0345 AC 09/06 IV 0359 Albuterol Sulfate 3 ML Q4P PRN 09/06 1115 AC INH Ampicillin Sodium/ 3,000 MG Q8 09/07 2200 DC Sulbactam Sodium IV Sodium Chloride 100 ML Ampicillin Sodium/ 3,000 MG Q8H 09/07 1745 AC 09/08 Sulbactam Sodium IV 1231 Sodium Chloride 100 ML Aspirin Buffered 81 MG DAILY 09/06 0900 AC PO Atorvastatin Calcium 80 MG 1700 09/08 1700 AC PO Diltiazem HCl 125 MG Q12H 09/08 1230 AC 09/08 Dextrose/Water 100 ML IV 1231 Diltiazem HCl 125 MG Q10H 09/07 1100 DC 09/08 Dextrose/Water 100 ML IV 09/08 1229 0643 Enoxaparin Sodium 40 MG DAILY 09/06 0900 AC 09/08 SC 1230 Folic Acid 1 MG DAILY 09/07 1023 AC PO Insulin Human Regular 6 UNITS .STK-MED ONE 09/08 0639 DC IV 09/08 0640 Insulin Human Regular 4 UNITS .STK-MED ONE 09/07 2351 DC IV 09/07 2352 Insulin Human Regular 0 Q6 09/06 1223 AC 09/08 SC 1228 Lorazepam 2 MG ONCE ONE 09/08 1315 DC 09/08 IV 09/08 1316 1318 Multivitamins 1 TAB DAILY 09/07 1023 AC PO Non-Formulary 0 SEE ADMIN CRITERIA 09/08 1115 CAN Medication ANY Propofol 1,000 MG Q12H 09/08 1115 AC 09/08 N/A 1 UNIT IV 1316 Propofol 1,000 MG .STK-MED ONE 09/08 1017 DC IV 09/08 1018 Sodium Chloride 1,000 ML Q6H 09/08 0815 AC 09/08 IV 1809 Sodium Chloride 1,000 ML Q10H 09/06 0930 DC 09/08 IV 0100 Thiamine HCl 50 MG DAILY 09/07 1023 AC PO Review of Systems Review of Systems: Unable to obtain due to intubation and sedation. 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 Home Smoking Status: Never Smoked ETOH Use: occasional use Exam & Diagnostic Data Vital Signs and I&O Vital Signs Date Time Temp Pulse Resp B/P B/P Pulse O2 O2 Flow FiO2 Mean Ox Delivery Rate 09/08 1645 60 09/08 1404 70 09/08 1200 94 Nasal 50% Cannula 09/08 1137 70 09/08 0800 92 Nasal 50% Cannula 09/08 0800 98.0 84 40 165/84 92 Nasal 50% Cannula 09/08 0753 93 Nasal 50% Cannula 09/08 0230 92 Nasal 50% Cannula 09/08 0024 86 97 09/08 0000 94 BIPAP 40% 09/08 0000 98.0 84 30 130/70 94 BIPAP 40% 09/07 2324 85 95 09/07 2013 94 Nasal 45% Cannula 09/08 1999 93 Nasal 45% Cannula Intake & Output 09/08 1600 09/08 0800 09/08 0000 Intake Total 1380 888 660 Output Total 840 1100 700 Balance 540 -212 -40 Intake, IV 1380 888 100 Intake, Oral 560 Number 1 1 1 Bowel Movements Output, Urine 840 1100 700 Patient 114.787 kg Weight Physical Exam General Appearance: no apparent distress, obese Head: normal appearance Eyes: Bilateral: PERRL. Ears, Nose, Throat: ET tube in place Respiratory: chest non-tender, no respiratory distress, rhonchi, ventilator noise Cardiovascular: tachycardia, irregularly irregular Gastrointestinal: non-tender, no organomegaly, abnormal bowel sounds (hypoactive ), distention Extremities: Bilateral lower extremity 2+ edema up to knee Neurologic/Psych: sedated Skin: warm/dry Last 48 Hours of Lab Results: Laboratory Tests 09/08 09/08 1424 1400 Blood Gas pH (7.35 - 7.45 PH) 7.33 L pCO2 (35 - 45 TORR) 34 L pO2 (80 - 100 TORR) 103 H HCO3 (21 - 28 MEQ/L) 18 L ABG O2 Sat (Measured) (>96.0 %) 97.0 Carboxyhemoglobin (1.5 - 5.0 %) 0.3 L O2 Concentration % 70% Respiration Rate (BPM) 20 O2 Delivery Method VENT Vent Mode VC/AC Expiratory Pressure (CMH2O/P) 5 Tidal Volume (CC) 550 Coagulation PT (9.4 - 12.5 SEC) 14.7 H INR (0.90 - 1.17) 1.34 H APTT (25 - 37 SEC) 33 Fibrinogen Activity (200 - 393 MG/DL) 659 H Miscellaneous Phlebotomy Draw Site RIGHT RADIAL 09/08 09/07 09/07 0415 0830 0830 Chemistry Sodium (137 - 145 mmol/L) 144 Potassium (3.5 - 5.1 mmol/L) 3.6 Chloride (98 - 107 mmol/L) 109 H Carbon Dioxide (22 - 30 mmol/L) 18 L Anion Gap (5 - 16) 17 H BUN (9 - 20 mg/dL) 98 H Creatinine (0.7 - 1.2 mg/dL) 3.6 H Estimated GFR (>60 ml/min) 17 L Glucose (65 - 99 mg/dL) 214 H Calcium (8.4 - 10.2 mg/dL) 8.5 Phosphorus (2.5 - 4.5 mg/dL) 5.2 H Magnesium (1.6 - 2.3 mg/dL) 2.6 H Total Bilirubin (0.2 - 1.3 mg/dL) 3.0 H AST (17 - 59 U/L) 134 H ALT (21 - 72 U/L) 81 H Troponin I (<0.11 ng/ml) 0.35 *H Prot Electrophoresis Pending Total Protein (PEP) Pending Albumin (3.5 - 5.0 g/dL) 2.4 L Albumin % (PEP) Pending [id number] Pending [id number] Pending [id number] Pending [id number] Pending Gamma Globulins Pending Abnorm Protein Band 1 Pending Abnorm Protein Band 2 Pending Abnorm Protein Band 3 Pending Hematology CBC w Diff MAN DIFF ORDERED WBC (4.8 - 10.8 /CUMM) 13.6 H RBC (4.70 - 6.10 /CUMM) 4.34 L Hgb (14.0 - 18.0 G/DL) 11.5 L Hct (42 - 52 %) 35.0 L MCV (80.0 - 94.0 FL) 80.6 MCH (27.0 - 31.0 PG) 26.5 L MCHC (33.0 - 37.0 G/DL) 32.8 L RDW (11.5 - 14.5 %) 20.1 H Plt Count (130 - 400 /CUMM) 34 L MPV (7.4 - 10.4 FL) 9.9 Gran % (42.2 - 75.2 %) 75.6 H Lymphocytes % (20.5 - 51.1 %) 5.7 L Monocytes % (1.7 - 9.3 %) 18.5 H Eosinophils % (0 - 5 %) 0.2 Basophils % (0.0 - 2.0 %) 0 Absolute Granulocytes (1.4 - 6.5 /CUMM) 10.3 H Segmented Neutrophils (42.2 - 75.2 %) 68 Band Neutrophils (0.0 - 5.0 %) 10 H Absolute Lymphocytes (1.2 - 3.4 /CUMM) 0.8 L Lymphocytes (20.5 - 51.1 %) 12 L Monocytes (1.7 - 9.3 %) 8 Absolute Monocytes (0.10 - 0.60 /CUMM) 2.5 H Absolute Eosinophils (0.0 - 0.7 /CUMM) 0 Absolute Basophils (0.0 - 0.2 /CUMM) 0 Metamyelocytes (0.0 - 1.0 %) 2 H Nucleated RBCs (0.0 - 0.0 /100WBC) 1 H Platelet Estimate (ADEQUATE) DECREASED Normocytic RBCs VERIFIED Normochromic RBCs VERIFIED Miscellaneous Ref Lab Test Result Pending 09/07 09/07 09/07 0500 0500 0200 Chemistry Sodium (137 - 145 mmol/L) Cancelled 143 Potassium (3.5 - 5.1 mmol/L) Cancelled 3.9 Chloride (98 - 107 mmol/L) Cancelled 106 Carbon Dioxide (22 - 30 mmol/L) Cancelled 17 L Anion Gap (5 - 16) Cancelled 19 H BUN (9 - 20 mg/dL) Cancelled 88 H Creatinine (0.7 - 1.2 mg/dL) Cancelled 3.6 H Estimated GFR (>60 ml/min) 17 L Glucose (65 - 99 mg/dL) Cancelled 185 H Lactic Acid (0.7 - 2.1 mmol/L) 1.9 Calcium (8.4 - 10.2 mg/dL) Cancelled 8.2 L Phosphorus (2.5 - 4.5 mg/dL) Cancelled 4.6 H Magnesium (1.6 - 2.3 mg/dL) Cancelled 2.5 H Total Bilirubin (0.2 - 1.3 mg/dL) Cancelled 4.4 H AST (17 - 59 U/L) Cancelled 197 H ALT (21 - 72 U/L) Cancelled 102 H Troponin I (<0.11 ng/ml) 0.41 *H Albumin (3.5 - 5.0 g/dL) Cancelled 2.5 L Hematology CBC w Diff MAN DIFF ORDERED WBC (4.8 - 10.8 /CUMM) 10.9 H RBC (4.70 - 6.10 /CUMM) 4.37 L Hgb (14.0 - 18.0 G/DL) 11.7 L Hct (42 - 52 %) 35.1 L MCV (80.0 - 94.0 FL) 80.3 MCH (27.0 - 31.0 PG) 26.7 L MCHC (33.0 - 37.0 G/DL) 33.2 RDW (11.5 - 14.5 %) 19.3 H Plt Count (130 - 400 /CUMM) 32 L MPV (7.4 - 10.4 FL) 10.0 Gran % (42.2 - 75.2 %) 80.6 H Lymphocytes % (20.5 - 51.1 %) 5.5 L Monocytes % (1.7 - 9.3 %) 13.4 H Eosinophils % (0 - 5 %) 0.5 Basophils % (0.0 - 2.0 %) 0 Absolute Granulocytes (1.4 - 6.5 /CUMM) 8.8 H Segmented Neutrophils (42.2 - 75.2 %) 69 Band Neutrophils (0.0 - 5.0 %) 12 H Absolute Lymphocytes (1.2 - 3.4 /CUMM) 0.6 L Lymphocytes (20.5 - 51.1 %) 11 L Monocytes (1.7 - 9.3 %) 4 Absolute Monocytes (0.10 - 0.60 /CUMM) 1.5 H Absolute Eosinophils (0.0 - 0.7 /CUMM) 0.1 Basophils (0.0 - 2.0 %) 1 Absolute Basophils (0.0 - 0.2 /CUMM) 0 Nucleated RBCs (0.0 - 0.0 /100WBC) 1 H Platelet Estimate (ADEQUATE) DECREASED Normocytic RBCs VERIFIED Normochromic RBCs VERIFIED ESR Westergren (0 - 10 MM) 116 H 14 09/06 2130 1950 Chemistry Sodium (137 - 145 mmol/L) 141 Potassium (3.5 - 5.1 mmol/L) 4.0 Chloride (98 - 107 mmol/L) 104 Carbon Dioxide (22 - 30 mmol/L) 19 L Anion Gap (5 - 16) 19 H BUN (9 - 20 mg/dL) 80 H Creatinine (0.7 - 1.2 mg/dL) 3.4 H Estimated GFR (>60 ml/min) 19 L Glucose (65 - 99 mg/dL) 189 H Lactic Acid Cancelled Calcium (8.4 - 10.2 mg/dL) 7.9 L Phosphorus (2.5 - 4.5 mg/dL) 5.1 H Magnesium (1.6 - 2.3 mg/dL) 2.3 Total Bilirubin (0.2 - 1.3 mg/dL) 4.6 H AST (17 - 59 U/L) 207 H ALT (21 - 72 U/L) 110 H Troponin I (<0.11 ng/ml) 0.39 *H Albumin (3.5 - 5.0 g/dL) 2.6 L Hematology CBC w Diff NO MAN DIFF REQ WBC (4.8 - 10.8 /CUMM) 11.5 H RBC (4.70 - 6.10 /CUMM) 4.44 L Hgb (14.0 - 18.0 G/DL) 11.7 L Hct (42 - 52 %) 35.8 L MCV (80.0 - 94.0 FL) 80.8 MCH (27.0 - 31.0 PG) 26.4 L MCHC (33.0 - 37.0 G/DL) 32.6 L RDW (11.5 - 14.5 %) 19.3 H Plt Count (130 - 400 /CUMM) 36 L MPV (7.4 - 10.4 FL) 10.2 Gran % (42.2 - 75.2 %) 83.9 H Lymphocytes % (20.5 - 51.1 %) 3.8 L Monocytes % (1.7 - 9.3 %) 12.2 H Eosinophils % (0 - 5 %) 0.1 Basophils % (0.0 - 2.0 %) 0 Absolute Granulocytes (1.4 - 6.5 /CUMM) 9.6 H Absolute Lymphocytes (1.2 - 3.4 /CUMM) 0.4 L Absolute Monocytes (0.10 - 0.60 /CUMM) 1.4 H Absolute Eosinophils (0.0 - 0.7 /CUMM) 0 Absolute Basophils (0.0 - 0.2 /CUMM) 0 Imaging/Other Studies: CT Head without contrast 09/05/2017: No acute intracranial pathology. CTA Head with contrast 09/05/2017: No acute intracranial findings. Calcific atherosclerotic disease without significant arterial stenosis and without acute arterial occlusion within the head or neck. CXR 09/05/2017: Cardiomegaly with pulmonary venous congestion. No pulmonary edema. Mild bibasilar atelectasis in the lung volumes. US lower extremities 09/06/2017: Normal triplex scan without evidence of deep venous thrombosis involving the lower extremities. US Abdomen 09/06/2017: There is hepatosplenomegaly. There is heterogeneous hepatic echotexture, consistent with fatty infiltration or hepatocellular disease. Lobulated contour favors cirrhosis. Please correlate clinically. No focal hepatic mass or intrahepatic biliary dilatation is seen. The gallbladder is surgically absent. CXR 09/06/2017: There is cardiomegaly and mild pulmonary vascular congestion. No overt pulmonary edema is seen. Lung volumes are low, with crowding of bronchovascular and pulmonary parenchymal markings. There is stable mild elevation of the right hemidiaphragm. TTE 09/06/2017: 1. This was a technically difficult and very limited study due to the patient's body habitus, this clinical status, and the fact that the patient was very tachycardic during the test. 2. Fibrocalcific changes are present in the aortic valve. The valve was not well-visualized anatomically. The noncoronary leaflet appears to be diffusely thickened. The possibility of a associated vegetative lesion cannot be excluded by this study. Accurate assessment of aortic valve function was not possible. 3. Thickening intoxication of the mitral leaflets is present with no evidence of valvular stenosis. 4. Moderate left atrial enlargement is present. 5. No significant pericardial fluid was identified. 6. Left ventricular chamber size is normal. Image quality was suboptimal. Additional images were obtained following the administration of IV contrast. The ejection fraction appears normal. Accurate wall motion assessment was not possible but there may be focal hypokinesia at the apex. 7. The right heart structures were not well visualized. Right ventricular systolic pressure cannot be accurately assessed. 8. A follow-up study might be useful in the patient's heart rate is better controlled. 9. A transesophageal echocardiogram is suggested to better exclude the possibility of vegetative lesions CT Right lower extremity 09/07/2017: Fragmented displaced fracture fragments of the navicular and mild impaction of the distal talus suggests a neuropathic foot. There are numerous subchondral cyst/erosions throughout the midfoot which may be secondary to an inflammatory arthropathy. Diffuse soft tissue and subcutaneous edema without a focal fluid collection to indicate an abscess. CT Head without contrast 09/08/2017: New subtle low-attenuation noted in the junction of the posterior limb and internal capsule and right hippocampal junction. Evolving infarct in the appropriate clinical setting cannot be excluded. Further assessment with MRI recommended. 2. Subtle cortical low-attenuation right frontal parafalcine region appears more conspicuous on the current examination. Findings may represent small cortical infarct. The above-mentioned finding should be further assessed with MRI to confirm and assess the age of infarct. Assessment/Plan Assessment: Mr. Rooney is a 61-year-old man with DM, HTN, CAD s/p DE, CABG, AICD/pacemaker, prostate cancer s/p TURP, cirrhosis, and recurrent cellulitis of the left thigh s/p right great toe debridement who presented to the hospital with slurred speech and left facial drop for a few days. CT on admission was unremarkable. CT head on follow up demonstrated evolving lunar infarct. There is concern for endocarditis. Blood cultures grew beta strep group B. He is on Unasyn. ID is following. His platelet count is low at 34,000 today. This decreased on admission from 73,000. This has been stable. His thrombocytopenia is new with admission. Platelet count is normal in June 2017. Thrombocytopenia is likely infection related. He is bacteremia. DIC panel is negative. This may be checked to tend the DIC. He has an underlying liver disease. This may make his platelet worses with splenomegaly. He should continue on with monitoring and transfusion as needed. WBC is elevated with bandemia. This is concerning for infection Recommendations: Thrombocytopenia: -monitor for DIC -transfusion platelet if: -<10,000 -<20,000 with fever -<50,000 with bleeding and ? procedures -continue to monitor -monitor liver disease (CMP) Renal injury: -follow up with renal recommendations -monitor BMP Beta Strep Group B bacteremia: -ID is following -Unaysn Acute respiratory failure: -primary care/pulmony as currently managed Problem List: 1. Coagulopathy 2. CVA (cerebral vascular accident) 3. DEMETRIO (acute kidney injury) 4. Thrombocytopenia Other Findings/Comments: Please call [phone] with any questions or concerns. Consult Acknowledgment - Thank you for your consult request.
[2017-09-09] VITALS: BP 108/61
[2017-09-09 04:32] LABS: ABSOLUTE BASOPHIL COUNT 0 /CUMM (0.0-0.2); ABSOLUTE EOSINOPHIL COUNT 0.2 /CUMM (0.0-0.7); BASOPHIL % 0 % (0.0-2.0); MEAN PLATELET VOLUME 9.9 FL (7.4-10.4); RED BLOOD CELL CT 3.86 /CUMM (4.70-6.10)
[2017-09-09 04:46] LABS: ABSOLUTE GRANULOCYTE CT 7.9 /CUMM (1.4-6.5); ABSOLUTE LYMPH COUNT 1.4 /CUMM (1.2-3.4); ABSOLUTE MONOCYTE COUNT 1.7 /CUMM (0.10-0.60); EOSINOPHIL % 1.4 % (0-5); GRANULOCYTE % 70.8 % (42.2-75.2); HEMATOCRIT 31.1 % (42-52); MEAN CORPUSCULAR HGB 26.4 PG (27.0-31.0); MEAN CORPUSCULAR HGB CONC 32.8 G/DL (33.0-37.0); MEAN CORPUSCULAR VOLUME 80.5 FL (80.0-94.0); RBC DISTRIBUTION WIDTH 20.3 % (11.5-14.5); WHITE BLOOD CELL COUNT 11.2 /CUMM (4.8-10.8)
[2017-09-09 05:13] LABS: PLATELET COUNT 31 /CUMM (130-400)
--- NOTE | 2017-09-09 07:28 | PN- Resident CRCU ---
Subjective HPI/CRCU Issues: Septic shock Respiratory failure requiring intubation Group B strep bacteremia Kidney injury Thrombocytopenia UTI 24 Hour Events: Intubated Sedated No acute o/n event including no telemetry event. Objective Vital Signs & I&O Last 8 Hrs of Vitals and I&O: Intake & Output 09/09 1600 Intake Total 1504 Output Total 1500 Balance 4 Intake, Blood 243 Product Intake, IV 1261 Number 1 Bowel Movements Output, Urine 1500 Patient 114.787 kg Weight Exam General Appearance: sedated, intubated Other Physical Findings: Head: atraumatic, normal appearance Neck: supple, full range of motion Respiratory: rhonchi Cardiovascular: regular rate/rhythm Gastrointestinal: normal bowel sounds, soft, non-tender Current Medications: Current Medications Sig/Jasvir Start time Last Medication Dose Route Stop Time Status Admin Acetaminophen 650 MG Q6P PRN 09/06 0345 AC PO Acetaminophen 1,000 MG Q6P PRN 09/06 0345 AC 09/06 IV 0359 Albuterol Sulfate 3 ML Q4P PRN 09/06 1115 AC INH Ampicillin Sodium/ 3,000 MG Q8H 09/07 1745 AC 09/09 Sulbactam Sodium IV 1814 Sodium Chloride 100 ML Aspirin Buffered 81 MG DAILY 09/06 0900 AC 09/09 PO 0754 Atorvastatin Calcium 80 MG 1700 09/08 1700 AC 09/09 PO 1644 Dextrose/Water 1,000 ML Q13H 09/09 1145 AC 09/09 IV 1225 Diltiazem HCl 125 MG Q12H 09/09 1615 AC 09/09 Dextrose/Water 100 ML IV 1812 Diltiazem HCl 125 MG Q8H 09/08 2100 DC 09/09 Dextrose/Water 100 ML IV 09/09 1614 0530 Diltiazem HCl 125 MG Q12H 09/08 1230 DC 09/08 Dextrose/Water 100 ML IV 09/08 2100 1231 Enoxaparin Sodium 40 MG DAILY 09/06 0900 DC 09/09 SC 0754 Folic Acid 1 MG DAILY 09/07 1023 AC 09/09 PO 0754 Furosemide 60 MG ONCE ONE 09/09 1145 DC 09/09 IV 09/09 1146 1228 Insulin Aspart 0 Q6 09/09 2359 UNVr SC Insulin Aspart 0 TIDAC 09/09 1700 DC 09/09 SC 1810 Insulin Human Regular 4 UNITS .STK-MED ONE 09/09 0525 DC IV 09/09 0526 Insulin Human Regular 4 UNITS .STK-MED ONE 09/09 0033 DC IV 09/09 0034 Insulin Human Regular 0 Q6 09/06 1223 DC 09/09 SC 1245 Lorazepam 50 MG Q24H 09/09 0830 09/09 Sodium Chloride 500 ML IV 0954 Multivitamins 1 TAB DAILY 09/07 1023 AC 09/09 PO 0754 Pantoprazole Sodium 40 MG DAILY 09/09 0900 AC 09/09 IV 0755 Propofol 1,000 MG Q5H 09/08 2000 AC 09/09 N/A 1 UNIT IV 1247 Propofol 1,000 MG Q12H 09/08 1115 DC 09/08 N/A 1 UNIT IV 09/09 1999 131 Sodium Chloride 1,000 ML Q13H 09/09 0815 DC IV Sodium Chloride 500 ML BOLUS ONE 09/09 0300 DC 09/09 IV 09/09 0359 0259 Sodium Chloride 1,000 ML Q6H 09/08 0815 DC 09/09 IV 0519 Thiamine HCl 50 MG DAILY 09/07 1023 09/09 PO 0754 Impression/Plan Impression/Problem List Impression: Impression: 65 y/o M with PMH of DM, Gout(?), AK s/p CABG on aspirin/plavix, hypertension and hyperlipidemia was brought to the ED by 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 Patient is reported to have had a sudden onset dysarthria, difficulty swallowing and L nasolabial fold drooping. This neurological deficits or transit and result on the patient was in the ICU. Patient was also found to have new onset A. fib . Assessment: 1. Acute Hypoxemic Respiratory Failure now intubated due to increased work of breathing and tachypnea. 2. Atrial Fibrilliation with RVR - now in NSR 3. DEMETRIO 4. Evolving lacunar infarct as evident by today's CT scan . 5. Strep B bacteremia (this is uncommon in diabetic patients) 6. Elevated Troponins. Type II AK. Now resolved. 7. Elevated ESR 8. Thrombocytopenia most likely secondary to sepsis, there is concern of DIC. Plan: * Continue monitoring in ICU for now. * continue on mechanical ventilation with assist control with VT is of 550, PEEP of 5, respiratory rate of 20, and FiO2 of 60-100. * Currently on IV Unasyn (day 4). * Lower IV Cardizem to 10MG * OG tube for meds administration * TTE - pending today to assess for endocarditis * Continue Atorvastatin 80mg as part of stroke management giventhe patient has an evloving lacunar infarct * His DEMETRIO has worsened. Likely secondary to contrast induced nephropathy * Nephrology consult for DEMETRIO. * Continue IVF @50ml/hr * Monitor thrombocytopenia. S/p 2 units. His Thrombocytopenia could be secondary to DIC from sepsis versus liver cirrhosis (?). The DIC panel is unremarkable however to fully diagnose DIC will need to trend the coagulation panel. * Diet: Will start tube feeds today. * DVT Prophylaxis: ALPS only. * Code: Full Code Problem List: 1. Bacteremia 2. CVA (cerebral vascular accident) Pain Ratin Tomorrow's Labs & Rationales: ICU BUNDLE CBC Plan DVT/Prophylaxis: mechanical
[2017-09-09 08:00] VITALS: BP 120/50
--- NOTE | 2017-09-09 08:08 | PN- Cardiology ---
Subjective Subjective: Events noted. Patient was intubated around noon yesterday, he developed rapid a. flutter with rates 120-150 for 8 hours with hypotension. Cardizem increased to 15 mg/min,now back to 10 mg/min. He is no propofol, he can open his eyes. Review of Systems: Not obtainable due to intubation Objective Vital Signs and I&Os Vital Signs Date Time Temp Pulse Resp B/P B/P Pulse O2 O2 Flow FiO2 Mean Ox Delivery Rate 09/09 0546 45 09/09 0400 95 Ventilator 45% 09/09 0324 45 09/09 0108 45 09/09 0000 98.8 59 30 108/61 95 Ventilator 45% 09/09 0000 95 Ventilator 45% 09/08 2242 45 09/08 2000 94 Ventilator 50% 09/08 1900 50 09/08 1645 60 09/08 1600 94 Ventilator 70% 09/08 1600 97.8 108 28 90/40 94 Ventilator 70% 09/08 1404 70 09/08 1200 94 Nasal 50% Cannula 09/08 1137 70 09/08 0800 92 Nasal 50% Cannula 09/08 0800 98.0 84 40 165/84 92 Nasal 50% Cannula Intake & Output 09/09 0800 17 0000 /16 1600 16 0800 16 0000 09/07 1600 Intake Total 1607 1004 1380 888 660 942.5 Output Total 365 671 226 4784 700 600 Balance 1242 409 540 -212 -40 342.5 Intake, IV 1607 1004 1380 888 100 942.5 Intake, Oral 560 Number 1 1 1 1 Bowel Movements Output, Urine 365 330 884 5987 700 600 Patient 253 lb Weight Physical Exam: Intubated HEENT-PERRLA Neck-JVP elevated, no bruits Lungs-clear anteriorly Heart-S1S2 regular,no murmur Abdomen-soft, mildly distended, BS+, no organomegaly, no masses Extr-2+ right foot edema, 1+ left foot edema, 1+ distal pulses,no cyanosis Neuro-non focal Skin-no rash Vascular-1+ distal pulses Current Medications: Current Medications Sig/Jasvir Start time Last Medication Dose Route Stop Time Status Admin Acetaminophen 650 MG Q6P PRN 09/06 0345 AC PO Acetaminophen 1,000 MG Q6P PRN 09/06 0345 AC 09/06 IV 0359 Albuterol Sulfate 3 ML Q4P PRN 09/06 1115 AC INH Ampicillin Sodium/ 3,000 MG Q8H 09/07 1745 AC 09/09 Sulbactam Sodium IV 0105 Sodium Chloride 100 ML Aspirin Buffered 81 MG DAILY 09/06 0900 AC 09/09 PO 0754 Atorvastatin Calcium 80 MG 1700 09/08 1700 AC PO Diltiazem HCl 125 MG Q8H 09/08 2100 09/09 Dextrose/Water 100 ML IV 0530 Diltiazem HCl 125 MG Q12H 09/08 1230 DE 09/08 Dextrose/Water 100 ML IV 09/08 2100 1231 Diltiazem HCl 125 MG Q10H 09/07 1100 DE 09/08 Dextrose/Water 100 ML IV 09/08 1229 0643 Enoxaparin Sodium 40 MG DAILY 09/06 0900 09/09 SC 0754 Folic Acid 1 MG DAILY 09/07 1023 09/09 PO 0754 Insulin Human Regular 6 UNITS .STK-MED ONE 09/08 1943 DC IV 09/08 1944 Insulin Human Regular 6 UNITS .STK-MED ONE 09/08 1227 DC IV 09/08 1228 Insulin Human Regular 0 Q6 09/06 1223 09/09 SC 0528 Lorazepam 2 MG ONCE ONE 09/08 1315 DC 09/08 IV 09/08 1316 1318 Multivitamins 1 TAB DAILY 09/07 1023 09/09 PO 0754 Non-Formulary 0 SEE ADMIN CRITERIA 09/08 1115 CAN Medication ANY Pantoprazole Sodium 40 MG DAILY 09/09 0900 09/09 IV 0755 Propofol 1,000 MG Q5H 09/08 2000 09/09 N/A 1 UNIT IV 0532 Propofol 1,000 MG .STK-MED ONE 09/08 1319 DC IV 09/08 1320 Propofol 1,000 MG Q12H 09/08 1115 DE 09/08 N/A 1 UNIT IV 09/09 1999 1316 Propofol 1,000 MG .STK-MED ONE 09/08 1017 DC IV 09/08 1018 Sodium Chloride 500 ML BOLUS ONE 09/09 0300 DC 09/09 IV 09/09 0359 0259 Sodium Chloride 1,000 ML Q6H 09/08 0815 09/09 IV 0519 Sodium Chloride 1,000 ML Q10H 09/06 0930 DC 09/08 IV 0100 Thiamine HCl 50 MG DAILY 09/07 1023 AC 09/09 PO 0754 Results Last 48 Hrs of Labs/Mics: Laboratory Tests 09/09/17 0400: Anion Gap 15, Estimated GFR 15 L, Glucose 163 H, Calcium 8.2 L, Phosphorus 5.3 H, Magnesium 2.8 H, Total Bilirubin 1.8 H, AST 199 H, ALT 92 H, Albumin 2.1 L, CBC w Diff NO MAN DIFF REQ, RBC 3.86 L, MCV 80.5, MCH 26.4 L, MCHC 32.8 L, RDW 20.3 H, MPV 9.9, Gran % 70.8, Lymphocytes % 12.6 L, Monocytes % 15.2 H, Eosinophils % 1.4, Basophils % 0, Absolute Granulocytes 7.9 H, Absolute Lymphocytes 1.4, Absolute Monocytes 1.7 H, Absolute Eosinophils 0.2, Absolute Basophils 0 09/08/17 1424: pH 7.33 L, pCO2 34 L, pO2 103 H, HCO3 18 L, ABG O2 Sat (Measured) 97.0, Carboxyhemoglobin 0.3 L, O2 Concentration % 70%, Respiration Rate 20, O2 Delivery Method VENT, Vent Mode VC/AC, Expiratory Pressure 5, Tidal Volume 550, Phlebotomy Draw Site RIGHT RADIAL 09/08/17 1400: PT 14.7 H, INR 1.34 H, APTT 33, Fibrinogen Activity 659 H 09/08/17 0415: Anion Gap 17 H, Estimated GFR 17 L, Glucose 214 H, Calcium 8.5, Phosphorus 5.2 H, Magnesium 2.6 H, Total Bilirubin 3.0 H, AST 134 H, ALT 81 H, Albumin 2.4 L, CBC w Diff MAN DIFF ORDERED, RBC 4.34 L, MCV 80.6, MCH 26.5 L, MCHC 32.8 L, RDW 20.1 H, MPV 9.9, Gran % 75.6 H, Lymphocytes % 5.7 L, Monocytes % 18.5 H, Eosinophils % 0.2, Basophils % 0, Absolute Granulocytes 10.3 H, Segmented Neutrophils 68, Band Neutrophils 10 H, Absolute Lymphocytes 0.8 L, Lymphocytes 12 L, Monocytes 8, Absolute Monocytes 2.5 H, Absolute Eosinophils 0, Absolute Basophils 0, Metamyelocytes 2 H, Nucleated RBCs 1 H, Platelet Estimate DECREASED, Normocytic RBCs VERIFIED, Normochromic RBCs VERIFIED 09/07/17 0830: Troponin I 0.35 *H 09/07/17 0830: Prot Electrophoresis Pending, Total Protein (PEP) Pending, Albumin % (PEP) Pending, Xgnpq-[id number] Pending, Rdgan-4-Bfotvncnt Pending, Cgqz-4-Uwhcdjqq Pending, Iubj-0-Gxpycfcd Pending, Gamma Globulins Pending, Abnorm Protein Band 1 Pending, Abnorm Protein Band 2 Pending, Abnorm Protein Band 3 Pending, Ref Lab Test Result Pending Recent Imaging Studies: CXR and head CT scan results noted Assessment/Plan Assessment/Plan Assessment/Plan 61 year old male with known CAD, PCI in 11/2016, ICD for sustained VT, s/p CABG in 04/2017, HTN, HLP, DM, SAS admitted with respiratory failure, septic shock ( Group B strep in blood), renal and liver failure, CVA, AF with RVR. Source of infection likely his foot. F/U blood cultures so far negative Intubated yesterday, JESUS postponed due to thrombocytopenia. Patient was seen by nephrology and hematology. F/U head CT showed 2 evolving infarcts. He is currently on propofol drip. He developed recurrent rapid atrial flutter after intubation with hypotension. Converted back to sinus after 8 hours with improvement of blood pressure. CXR showed worsening CHF. He is in positive fluid balance (10L since admission). Renal function worse today likely due to hypotension yesterday. Plan; continue iv cardizem continue atb if he develops recurrent fibrillation/flutter, start iv amiodarone (despite elevated LFT's) continue Aspirin JESUS today-give 2U platelets 1 hour prior to JESUS hold on anticoagulation unless there is clear evidence of left atrial appendage or intracardiac thrombus decrease iv fluids Will probably start low dose diuretics tomorrow f/u CXR today Discussed with house staff, nurse Patient is critically ill as evidenced by respiratory failure, intubation, septic shock, rapid atrial flutter, CVA, multiorgan failure. He required 45 minutes of my undivided attention in the past 24 hours. Interventions included management of his respiratory status, treatment of atrial flutter, hypotension, metabolic abnormalites and multiorgan failure. Continue telemetry? Yes
--- NOTE | 2017-09-09 08:10 | PN- CRCU ---
Subjective HPI/Critical Care Issues: The patient remains intubated and sedated, on propofol drip. He is comfortable and arousable. He is unable to follow commands. His SAS score is 3. He remains on mechanical ventilation, AC20/550/45 percent/5 with saturations in the mid to high 90s. He is afebrile. Blood pressure has been in the 80s-90s overnight however has improved this morning. He continues to have good urine output. He remains on normal saline at 150 mL/h. The patient remains on a Cardizem drip at 10 mg/h and has been in sinus rhythm over the last shift. He is not able to offer complaints. Objective Current Medications: Current Medications Sig/Jasvir Start time Last Medication Dose Route Stop Time Status Admin Acetaminophen 650 MG Q6P PRN 09/06 0345 AC PO Acetaminophen 1,000 MG Q6P PRN 09/06 0345 AC 09/06 IV 0359 Albuterol Sulfate 3 ML Q4P PRN 09/06 1115 AC INH Ampicillin Sodium/ 3,000 MG Q8H 09/07 1745 AC 09/09 Sulbactam Sodium IV 0105 Sodium Chloride 100 ML Aspirin Buffered 81 MG DAILY 09/06 0900 AC 09/09 PO 0754 Atorvastatin Calcium 80 MG 1700 09/08 1700 AC PO Diltiazem HCl 125 MG Q8H 09/08 2100 AC 09/09 Dextrose/Water 100 ML IV 0530 Diltiazem HCl 125 MG Q12H 09/08 1230 MA 09/08 Dextrose/Water 100 ML IV 09/08 2100 1231 Diltiazem HCl 125 MG Q10H 09/07 1100 DC 09/08 Dextrose/Water 100 ML IV 09/08 1229 0643 Enoxaparin Sodium 40 MG DAILY 09/06 0900 09/09 SC 0754 Folic Acid 1 MG DAILY 09/07 1023 09/09 PO 0754 Insulin Human Regular 6 UNITS .STK-MED ONE 09/08 1943 DC IV 09/08 194 Insulin Human Regular 6 UNITS .STK-MED ONE 09/08 1227 DC IV 09/08 1228 Insulin Human Regular 0 Q6 09/06 1223 09/09 SC 0528 Lorazepam 2 MG ONCE ONE 09/08 1315 DC 09/08 IV 09/08 1316 1318 Multivitamins 1 TAB DAILY 09/07 1023 AC 09/09 PO 0754 Non-Formulary 0 SEE ADMIN CRITERIA 09/08 1115 CAN Medication ANY Pantoprazole Sodium 40 MG DAILY 09/09 0900 AC IV Propofol 1,000 MG Q5H 09/09 1999 AC 09/09 N/A 1 UNIT IV 0532 Propofol 1,000 MG .STK-MED ONE 09/08 1319 DC IV 09/08 1320 Propofol 1,000 MG Q12H 09/08 1115 DC 09/08 N/A 1 UNIT IV 09/09 1999 131 Propofol 1,000 MG .STK-MED ONE 09/08 1017 DC IV 09/08 1018 Sodium Chloride 500 ML BOLUS ONE 09/09 0300 DC 09/09 IV 09/09 0359 0259 Sodium Chloride 1,000 ML Q6H 09/08 0815 AC 09/09 IV 0519 Sodium Chloride 1,000 ML Q10H 09/06 0930 DC 09/08 IV 0100 Thiamine HCl 50 MG DAILY 09/07 1023 09/09 PO 0754 Vital Signs & I&O Last 24 Hrs of Vitals and I&O: Vital Signs Date Time Temp Pulse Resp B/P B/P Pulse O2 O2 Flow FiO2 Mean Ox Delivery Rate 09/09 0546 45 09/09 0400 95 Ventilator 45% 09/09 0324 45 09/09 0108 45 09/09 0000 98.8 59 30 108/61 95 Ventilator 45% 09/09 0000 95 Ventilator 45% 09/08 2242 45 09/08 2000 94 Ventilator 50% 09/08 1900 50 09/08 1645 60 09/08 1600 94 Ventilator 70% 09/08 1600 97.8 108 28 90/40 94 Ventilator 70% 09/08 1404 70 09/08 1200 94 Nasal 50% Cannula 09/08 1137 70 09/08 0800 92 Nasal 50% Cannula 09/08 0800 98.0 84 40 165/84 92 Nasal 50% Cannula Intake & Output 09/09 0800 09/09 0000 09/08 1600 Intake Total 1607 1004 1380 Output Total 365 595 840 Balance 1242 409 540 Intake, IV 1607 1004 1380 Number 1 1 Bowel Movements Output, Urine 365 595 840 Patient 253 lb Weight Physical Exam General Appearance: Sedated and intubated, no distress Head: atraumatic, normal appearance Eyes: Bilateral: normal appearance, PERRL Neck: normal inspection, supple Respiratory: Bilateral anterior rhonchi heard Cardiovascular: S1 and S2 heard Gastrointestinal: normal bowel sounds, soft, non-tender Extremities: Right foot swelling over the dorsum, no erythema Skin: intact, normal color Results Last 24 Hrs of Lab Results: Laboratory Tests 09/09/17 0400: Anion Gap 15, Estimated GFR 15 L, Glucose 163 H, Calcium 8.2 L, Phosphorus 5.3 H, Magnesium 2.8 H, Total Bilirubin 1.8 H, AST 199 H, ALT 92 H, Albumin 2.1 L, CBC w Diff NO MAN DIFF REQ, RBC 3.86 L, MCV 80.5, MCH 26.4 L, MCHC 32.8 L, RDW 20.3 H, MPV 9.9, Gran % 70.8, Lymphocytes % 12.6 L, Monocytes % 15.2 H, Eosinophils % 1.4, Basophils % 0, Absolute Granulocytes 7.9 H, Absolute Lymphocytes 1.4, Absolute Monocytes 1.7 H, Absolute Eosinophils 0.2, Absolute Basophils 0 09/08/17 1424: pH 7.33 L, pCO2 34 L, pO2 103 H, HCO3 18 L, ABG O2 Sat (Measured) 97.0, Carboxyhemoglobin 0.3 L, O2 Concentration % 70%, Respiration Rate 20, O2 Delivery Method VENT, Vent Mode VC/AC, Expiratory Pressure 5, Tidal Volume 550, Phlebotomy Draw Site RIGHT RADIAL 09/08/17 1400: PT 14.7 H, INR 1.34 H, APTT 33, Fibrinogen Activity 659 H Last 24 Hrs of Micro Results: Blood cultures positive for beta strep group B. No other culture data is positive at present. Diagnostic Data CXR Findings: Endotracheal tube terminates approximately 5 cm above the biju. Worsening vascular congestion and bilateral interstitial edema. Increasing opacity retrocardiac region left base consistent with infiltrate or atelectasis. Trace effusion suspected. AM CXR is pending. CT Scan Findings: 1. New subtle low-attenuation noted in the junction of the posterior limb and internal capsule and right hippocampal junction. Evolving infarct in the appropriate clinical setting cannot be excluded. Further assessment with MRI recommended. 2. Subtle cortical low-attenuation right frontal parafalcine region appears more conspicuous on the current examination. Findings may represent small cortical infarct. The above-mentioned finding should be further assessed with MRI to confirm and assess the age of infarct. Impression/Plan Impression/Plan Impression/Plan: 1. Acute hypoxemic respiratory failure in the setting of fluid overload vs aspiration pneumonnia. 2. Strep group B sepsis, CT scan shows subcutaneous edema and focal fluid collection suggestive of abscess - podiatry following. 3. Acute on chronic kidney injury - secondary to ischemic ATN, nephrology following. BUN is elevated to 110 today. 4. Atrial fibrillation with rapid ventricular response -patient converted to sinus rhythm. 5. New onset lacunar stroke -unable to do MRI due to pacemaker and intubation. 6. Positive troponin, suggestive of demand ischemia. 7. Elevated bilirubin and transaminitis, abdominal ultrasound suggestive of cirrhosis. 8. Right lower extremity fractures and abscess formation. 9. Toxic/metabolic encephalopathy. 10. Mild hypernatremia. Recommendations: * Start Ativan drip at 0.5 mg/h and titrate up for an SAS of 3. * Wean propofol down to off today in the setting of hypotension and bradycardia. * Will give daily sedation vacations as tolerated. * Follow-up a.m. chest x-ray results. * Check an arterial blood gas sample. * Will adjust the ventilator as necessary pending results. * Continue to titrate oxygen down for saturation greater than 92%. * Follow-up surgery input regarding the right lower extremity swelling and possible abscess formation. * Continue IV Unasyn as per ID. * Change to 1/2 NS at 150 ml/hour. Discuss IV fluid hydration with renal. * Continue with nebs/TRC. * Continue insulin sliding scale. * Will continue to follow neurology recommendations, appreciate input. * Will also continue to follow cardiology recommendations, appreciate input. * Await JESUS. * Nutrition consult. * Start tube feeds after JESUS has been done. * Multivitamin, thiamine and folate. * Hematology consult for thrombocytopenia. * DVT prophylaxis at all times. * Continue to monitor in the critical care unit. The patient remains critically ill.
--- NOTE | 2017-09-09 11:09 | PN- Infect Dx ---
Subjective Subjective: Afebrile. He was electively intubated yesterday and is currently sedated. Objective Last 24 Hrs of Vital Signs/I&O Vital Signs Date Time Temp Pulse Resp B/P B/P Pulse O2 O2 Flow FiO2 Mean Ox Delivery Rate 09/09 0828 45 09/09 0800 98 Ventilator 45% 09/09 08 98.0 66 20 120/50 97 Ventilator 45% 09/09 0546 45 09/09 0400 95 Ventilator 45% 09/09 0324 45 09/09 0108 45 09/09 0000 98.8 59 30 108/61 95 Ventilator 45% 09/09 0000 95 Ventilator 45% 09/08 2242 45 09/08 2000 94 Ventilator 50% 09/08 1900 50 09/08 1645 60 09/08 1600 94 Ventilator 70% 09/08 1600 97.8 108 28 90/40 94 Ventilator 70% 09/08 1404 70 09/08 1200 94 Nasal 50% Cannula 09/08 1137 70 Intake & Output 09/09 1600 09/09 0800 09/09 0000 Intake Total 1607 1004 Output Total 365 595 Balance 1242 409 Intake, IV 1607 1004 Number 1 Bowel Movements Output, Urine 365 595 Physical Exam Other Physical Findings: He is minimally responsive, on sedation, now intubated Lungs bilateral rhonchi Heart regular rhythm with no murmur Abdomen is soft, with no obvious tenderness, positive bowel sounds Extremities swelling over the dorsum of the right foot persists, with hemorrhagic changes on the lateral aspect of the foot, slightly warm to touch, with no overlying erythema Barber catheter remains in place Results Last 24 Hours of Lab Results: Laboratory Tests 09/09 09/09 0825 0400 Blood Gas pH (7.35 - 7.45 PH) 7.39 pCO2 (35 - 45 TORR) 28 L pO2 (80 - 100 TORR) 74 L HCO3 (21 - 28 MEQ/L) 17 L ABG O2 Sat (Measured) (>96.0 %) 93.0 L Carboxyhemoglobin (1.5 - 5.0 %) 0.7 L O2 Concentration % 45% Respiration Rate (BPM) 20 O2 Delivery Method VENT Vent Mode VC-AC Expiratory Pressure (CMH2O/P) 5 Tidal Volume (CC) 550 Pressure Support (CMH2O/P) 0 Chemistry Sodium (137 - 145 mmol/L) 148 H Potassium (3.5 - 5.1 mmol/L) 3.6 Chloride (98 - 107 mmol/L) 115 H Carbon Dioxide (22 - 30 mmol/L) 18 L Anion Gap (5 - 16) 15 BUN (9 - 20 mg/dL) 110 *H Creatinine (0.7 - 1.2 mg/dL) 4.0 H Estimated GFR (>60 ml/min) 15 L Glucose (65 - 99 mg/dL) 163 H Calcium (8.4 - 10.2 mg/dL) 8.2 L Phosphorus (2.5 - 4.5 mg/dL) 5.3 H Magnesium (1.6 - 2.3 mg/dL) 2.8 H Total Bilirubin (0.2 - 1.3 mg/dL) 1.8 H AST (17 - 59 U/L) 199 H ALT (21 - 72 U/L) 92 H Albumin (3.5 - 5.0 g/dL) 2.1 L Hematology CBC w Diff NO MAN DIFF REQ WBC (4.8 - 10.8 /CUMM) 11.2 H RBC (4.70 - 6.10 /CUMM) 3.86 L Hgb (14.0 - 18.0 G/DL) 10.2 L Hct (42 - 52 %) 31.1 L MCV (80.0 - 94.0 FL) 80.5 MCH (27.0 - 31.0 PG) 26.4 L MCHC (33.0 - 37.0 G/DL) 32.8 L RDW (11.5 - 14.5 %) 20.3 H Plt Count (130 - 400 /CUMM) 31 L MPV (7.4 - 10.4 FL) 9.9 Gran % (42.2 - 75.2 %) 70.8 Lymphocytes % (20.5 - 51.1 %) 12.6 L Monocytes % (1.7 - 9.3 %) 15.2 H Eosinophils % (0 - 5 %) 1.4 Basophils % (0.0 - 2.0 %) 0 Absolute Granulocytes (1.4 - 6.5 /CUMM) 7.9 H Absolute Lymphocytes (1.2 - 3.4 /CUMM) 1.4 Absolute Monocytes (0.10 - 0.60 /CUMM) 1.7 H Absolute Eosinophils (0.0 - 0.7 /CUMM) 0.2 Absolute Basophils (0.0 - 0.2 /CUMM) 0 Miscellaneous Phlebotomy Draw Site LEFT RADIAL 09/08 09/08 1424 1400 Blood Gas pH (7.35 - 7.45 PH) 7.33 L pCO2 (35 - 45 TORR) 34 L pO2 (80 - 100 TORR) 103 H HCO3 (21 - 28 MEQ/L) 18 L ABG O2 Sat (Measured) (>96.0 %) 97.0 Carboxyhemoglobin (1.5 - 5.0 %) 0.3 L O2 Concentration % 70% Respiration Rate (BPM) 20 O2 Delivery Method VENT Vent Mode VC/AC Expiratory Pressure (CMH2O/P) 5 Tidal Volume (CC) 550 Coagulation PT (9.4 - 12.5 SEC) 14.7 H INR (0.90 - 1.17) 1.34 H APTT (25 - 37 SEC) 33 Fibrinogen Activity (200 - 393 MG/DL) 659 H Miscellaneous Phlebotomy Draw Site RIGHT RADIAL Last 24 Hours of Shady Results: Blood cultures 2 September 07 negative Sputum culture September 08 no growth Recent Imaging Studies: Chest x-ray September 09 reveals vascular congestion with bilateral interstitial edema and increasing opacity in the retrocardiac region left base Assessment/Plan ID Impression: Remains critically ill, with respiratory failure, now intubated, renal failure, likely multifactorial, with progression from yesterday, evolving infarct/ infarcts noted on the repeat CT of the head, possibly embolic secondary to endocarditis, with a JESUS scheduled for later today, or ischemic related to transient hypotension, persistent thrombocytopenia, presumably secondary to sepsis, and persistently elevated liver enzymes, which are fluctuating. He remains afebrile and his white blood cell count has decreased today, on Unasyn, Day 3 of treatment for Group B strep sepsis/possible endocarditis or infected AICD/pacemaker, with the source most likely his right foot, with persistent swelling, though the CT scan did not reveal any discrete collection. The inflammation does not appear to be progressing, making a process such as necrotizing fasciitis unlikely. Unfortunately an MRI is likely not feasible secondary to his AICD/pacemaker. Suggestion: 1. Await JESUS 2. Await Podiatry evaluation 3. Investigate as to whether his AICD is MRI compatible 4. Would pursue ultrasound of the right foot if unable to do MRI 5. Continue Unasyn
--- NOTE | 2017-09-09 12:02 | PN- Nephrology ---
Assessment/Plan Nephrology Assessment: DEMETRIO - Likely 2/2 ischemic ATN in the setting of A fib with RVR and renal hypoperfusion, contrast on 09/05, and another hypotensive episode yesterday. Although much less likely, could be infection related GN for which complements should be followed up (treatment of which is supportive). Worsening renal function but good UOP. No clear dialysis need at this time. Proteinuria - discrepancy between UA and Uprot/Cr raises suspicion for paraprotein for which he should be evaluated. Albumin level is low and proteinuria is nephrotic range. Paraprotein work-up sent. Should note as above that infection related GN is also on the differential. Group B Strep Bacteremia - ?new cerebral infarct - s/p JESUS looking for endocarditis. Foot likely underlying infectious source - ID following. Hypernatremia - 2/2 decreased PO intake. Suggestion: -Stop IVF -Would diurese - goal net neg 1-1.5L/day - can try 60mg IV lasix and perhaps a second dose after 6 hours in order to reach goal -Would start D5W at 75cc/hr -f/u complements -Given worsening renal function and thrombocytopenia, would switch off lovenox - would discuss with hematology/cards whether or not to use heparin Please call [phone] with ?'s Subjective Subjective: SCr up to 4.0 with BUN 110 2.5L UOP yesterday BP drop to 90/40 yesterday Na 148 Chest x-ray with worsening vascular congestion Objective Vital Signs and I&Os Vital Signs Date Time Temp Pulse Resp B/P B/P Pulse O2 O2 Flow FiO2 Mean Ox Delivery Rate 09/09 0828 45 09/09 0800 98 Ventilator 45% 09/09 0800 98.0 66 20 120/50 97 Ventilator 45% 09/09 0546 45 09/09 0400 95 Ventilator 45% 09/09 0324 45 09/09 0108 45 09/09 0000 98.8 59 30 108/61 95 Ventilator 45% 09/09 0000 95 Ventilator 45% 09/08 2242 45 09/08 2000 94 Ventilator 50% 09/08 1900 50 09/08 1645 60 09/08 1600 94 Ventilator 70% 09/08 1600 97.8 108 28 90/40 94 Ventilator 70% 09/08 1404 70 09/08 1200 94 Nasal 50% Cannula 09/08 1137 70 Intake & Output 09/09 1600 09/09 0400 09/08 1600 09/08 0400 09/07 1600 09/07 0400 Intake Total 1607 1004 2268 660 1962.5 925 Output Total 823 092 1644 700 1220 500 Balance 1242 409 328 -40 742.5 425 Intake, IV 1607 1004 2268 100 1962.5 925 Intake, Oral 560 0 Number 1 2 1 3 Bowel Movements Output, Stool 200 Output, Urine 422 085 5568 700 1220 300 Patient 253 lb Weight Physical Exam: Gen - intubated/sedated HEENT - +ETT CV - RRR, no m/r/g Chest - clear mechanical breath sounds Abd - soft, NTND Ext - R>LLE edema, blistering of R foot Neuro - sedated Current Medications: Current Medications Sig/Jasvir Start time Last Medication Dose Route Stop Time Status Admin Acetaminophen 650 MG Q6P PRN 09/06 0345 AC PO Acetaminophen 1,000 MG Q6P PRN 09/06 0345 AC 09/06 IV 0359 Albuterol Sulfate 3 ML Q4P PRN 09/06 1115 AC INH Ampicillin Sodium/ 3,000 MG Q8H 09/07 1745 AC 09/09 Sulbactam Sodium IV 0918 Sodium Chloride 100 ML Aspirin Buffered 81 MG DAILY 09/06 0900 AC 09/09 PO 0754 Atorvastatin Calcium 80 MG 1700 09/08 1700 AC PO Diltiazem HCl 125 MG Q8H 09/08 2100 AC 09/09 Dextrose/Water 100 ML IV 0530 Diltiazem HCl 125 MG Q12H 09/08 1230 DC 09/08 Dextrose/Water 100 ML IV 09/08 2100 1231 Diltiazem HCl 125 MG Q10H 09/07 1100 DC 09/08 Dextrose/Water 100 ML IV 09/08 1229 0643 Enoxaparin Sodium 40 MG DAILY 09/06 0900 AC 09/09 SC 0754 Folic Acid 1 MG DAILY 09/07 1023 AC 09/09 PO 0754 Insulin Human Regular 4 UNITS .STK-MED ONE 09/09 0033 DC IV 09/09 0034 Insulin Human Regular 6 UNITS .STK-MED ONE 09/08 1943 DC IV 09/08 1944 Insulin Human Regular 6 UNITS .STK-MED ONE 09/08 1227 DC IV 09/08 1228 Insulin Human Regular 0 Q6 09/06 1223 AC 09/09 SC 0528 Lorazepam 50 MG Q24H 09/09 0830 09/09 Sodium Chloride 500 ML IV 0954 Lorazepam 2 MG ONCE ONE 09/08 1315 DC 09/08 IV 09/08 1316 1318 Multivitamins 1 TAB DAILY 09/07 1023 09/09 PO 0754 Pantoprazole Sodium 40 MG DAILY 09/09 0900 AC 09/09 IV 0755 Propofol 1,000 MG Q5H 09/08 2000 09/09 N/A 1 UNIT IV 0532 Propofol 1,000 MG .STK-MED ONE 09/08 1319 DC IV 09/08 1320 Propofol 1,000 MG Q12H 09/08 1115 DC 09/08 N/A 1 UNIT IV 09/09 1999 131 Sodium Chloride 1,000 ML Q13H 09/09 0815 IV Sodium Chloride 500 ML BOLUS ONE 09/09 0300 DC 09/09 IV 09/09 0359 0259 Sodium Chloride 1,000 ML Q6H 09/08 0815 OR 09/09 IV 0519 Thiamine HCl 50 MG DAILY 09/07 1023 09/09 PO 0754 Results Pertinent Lab Results: Laboratory Tests 09/09 09/09 0825 0400 Blood Gas pH (7.35 - 7.45 PH) 7.39 pCO2 (35 - 45 TORR) 28 L pO2 (80 - 100 TORR) 74 L HCO3 (21 - 28 MEQ/L) 17 L ABG O2 Sat (Measured) (>96.0 %) 93.0 L Carboxyhemoglobin (1.5 - 5.0 %) 0.7 L O2 Concentration % 45% Respiration Rate (BPM) 20 O2 Delivery Method VENT Vent Mode VC-AC Expiratory Pressure (CMH2O/P) 5 Tidal Volume (CC) 550 Pressure Support (CMH2O/P) 0 Chemistry Sodium (137 - 145 mmol/L) 148 H Potassium (3.5 - 5.1 mmol/L) 3.6 Chloride (98 - 107 mmol/L) 115 H Carbon Dioxide (22 - 30 mmol/L) 18 L Anion Gap (5 - 16) 15 BUN (9 - 20 mg/dL) 110 *H Creatinine (0.7 - 1.2 mg/dL) 4.0 H Estimated GFR (>60 ml/min) 15 L Glucose (65 - 99 mg/dL) 163 H Calcium (8.4 - 10.2 mg/dL) 8.2 L Phosphorus (2.5 - 4.5 mg/dL) 5.3 H Magnesium (1.6 - 2.3 mg/dL) 2.8 H Total Bilirubin (0.2 - 1.3 mg/dL) 1.8 H AST (17 - 59 U/L) 199 H ALT (21 - 72 U/L) 92 H Albumin (3.5 - 5.0 g/dL) 2.1 L Hematology CBC w Diff NO MAN DIFF REQ WBC (4.8 - 10.8 /CUMM) 11.2 H RBC (4.70 - 6.10 /CUMM) 3.86 L Hgb (14.0 - 18.0 G/DL) 10.2 L Hct (42 - 52 %) 31.1 L MCV (80.0 - 94.0 FL) 80.5 MCH (27.0 - 31.0 PG) 26.4 L MCHC (33.0 - 37.0 G/DL) 32.8 L RDW (11.5 - 14.5 %) 20.3 H Plt Count (130 - 400 /CUMM) 31 L MPV (7.4 - 10.4 FL) 9.9 Gran % (42.2 - 75.2 %) 70.8 Lymphocytes % (20.5 - 51.1 %) 12.6 L Monocytes % (1.7 - 9.3 %) 15.2 H Eosinophils % (0 - 5 %) 1.4 Basophils % (0.0 - 2.0 %) 0 Absolute Granulocytes (1.4 - 6.5 /CUMM) 7.9 H Absolute Lymphocytes (1.2 - 3.4 /CUMM) 1.4 Absolute Monocytes (0.10 - 0.60 /CUMM) 1.7 H Absolute Eosinophils (0.0 - 0.7 /CUMM) 0.2 Absolute Basophils (0.0 - 0.2 /CUMM) 0 Miscellaneous Phlebotomy Draw Site LEFT RADIAL 09/08 09/08 1424 1400 Blood Gas pH (7.35 - 7.45 PH) 7.33 L pCO2 (35 - 45 TORR) 34 L pO2 (80 - 100 TORR) 103 H HCO3 (21 - 28 MEQ/L) 18 L ABG O2 Sat (Measured) (>96.0 %) 97.0 Carboxyhemoglobin (1.5 - 5.0 %) 0.3 L O2 Concentration % 70% Respiration Rate (BPM) 20 O2 Delivery Method VENT Vent Mode VC/AC Expiratory Pressure (CMH2O/P) 5 Tidal Volume (CC) 550 Coagulation PT (9.4 - 12.5 SEC) 14.7 H INR (0.90 - 1.17) 1.34 H APTT (25 - 37 SEC) 33 Fibrinogen Activity (200 - 393 MG/DL) 659 H Miscellaneous Phlebotomy Draw Site RIGHT RADIAL 09/08 09/07 09/07 0415 0830 0830 Chemistry Sodium (137 - 145 mmol/L) 144 Potassium (3.5 - 5.1 mmol/L) 3.6 Chloride (98 - 107 mmol/L) 109 H Carbon Dioxide (22 - 30 mmol/L) 18 L Anion Gap (5 - 16) 17 H BUN (9 - 20 mg/dL) 98 H Creatinine (0.7 - 1.2 mg/dL) 3.6 H Estimated GFR (>60 ml/min) 17 L Glucose (65 - 99 mg/dL) 214 H Calcium (8.4 - 10.2 mg/dL) 8.5 Phosphorus (2.5 - 4.5 mg/dL) 5.2 H Magnesium (1.6 - 2.3 mg/dL) 2.6 H Total Bilirubin (0.2 - 1.3 mg/dL) 3.0 H AST (17 - 59 U/L) 134 H ALT (21 - 72 U/L) 81 H Troponin I (<0.11 ng/ml) 0.35 *H Prot Electrophoresis Pending Total Protein (PEP) Pending Albumin (3.5 - 5.0 g/dL) 2.4 L Albumin % (PEP) Pending [id number] Pending [id number] Pending Wzji-5-Mpjetqex Pending Jujq-5-Erdicbqx Pending Gamma Globulins Pending Abnorm Protein Band 1 Pending Abnorm Protein Band 2 Pending Abnorm Protein Band 3 Pending Hematology CBC w Diff MAN DIFF ORDERED WBC (4.8 - 10.8 /CUMM) 13.6 H RBC (4.70 - 6.10 /CUMM) 4.34 L Hgb (14.0 - 18.0 G/DL) 11.5 L Hct (42 - 52 %) 35.0 L MCV (80.0 - 94.0 FL) 80.6 MCH (27.0 - 31.0 PG) 26.5 L MCHC (33.0 - 37.0 G/DL) 32.8 L RDW (11.5 - 14.5 %) 20.1 H Plt Count (130 - 400 /CUMM) 34 L MPV (7.4 - 10.4 FL) 9.9 Gran % (42.2 - 75.2 %) 75.6 H Lymphocytes % (20.5 - 51.1 %) 5.7 L Monocytes % (1.7 - 9.3 %) 18.5 H Eosinophils % (0 - 5 %) 0.2 Basophils % (0.0 - 2.0 %) 0 Absolute Granulocytes (1.4 - 6.5 /CUMM) 10.3 H Segmented Neutrophils (42.2 - 75.2 %) 68 Band Neutrophils (0.0 - 5.0 %) 10 H Absolute Lymphocytes (1.2 - 3.4 /CUMM) 0.8 L Lymphocytes (20.5 - 51.1 %) 12 L Monocytes (1.7 - 9.3 %) 8 Absolute Monocytes (0.10 - 0.60 /CUMM) 2.5 H Absolute Eosinophils (0.0 - 0.7 /CUMM) 0 Absolute Basophils (0.0 - 0.2 /CUMM) 0 Metamyelocytes (0.0 - 1.0 %) 2 H Nucleated RBCs (0.0 - 0.0 /100WBC) 1 H Platelet Estimate (ADEQUATE) DECREASED Normocytic RBCs VERIFIED Normochromic RBCs VERIFIED Miscellaneous Ref Lab Test Result Pending 09/07 09/07 09/07 0500 0500 0200 Chemistry Sodium (137 - 145 mmol/L) Cancelled 143 Potassium (3.5 - 5.1 mmol/L) Cancelled 3.9 Chloride (98 - 107 mmol/L) Cancelled 106 Carbon Dioxide (22 - 30 mmol/L) Cancelled 17 L Anion Gap (5 - 16) Cancelled 19 H BUN (9 - 20 mg/dL) Cancelled 88 H Creatinine (0.7 - 1.2 mg/dL) Cancelled 3.6 H Estimated GFR (>60 ml/min) 17 L Glucose (65 - 99 mg/dL) Cancelled 185 H Lactic Acid (0.7 - 2.1 mmol/L) 1.9 Calcium (8.4 - 10.2 mg/dL) Cancelled 8.2 L Phosphorus (2.5 - 4.5 mg/dL) Cancelled 4.6 H Magnesium (1.6 - 2.3 mg/dL) Cancelled 2.5 H Total Bilirubin (0.2 - 1.3 mg/dL) Cancelled 4.4 H AST (17 - 59 U/L) Cancelled 197 H ALT (21 - 72 U/L) Cancelled 102 H Troponin I (<0.11 ng/ml) 0.41 *H Albumin (3.5 - 5.0 g/dL) Cancelled 2.5 L Hematology CBC w Diff MAN DIFF ORDERED WBC (4.8 - 10.8 /CUMM) 10.9 H RBC (4.70 - 6.10 /CUMM) 4.37 L Hgb (14.0 - 18.0 G/DL) 11.7 L Hct (42 - 52 %) 35.1 L MCV (80.0 - 94.0 FL) 80.3 MCH (27.0 - 31.0 PG) 26.7 L MCHC (33.0 - 37.0 G/DL) 33.2 RDW (11.5 - 14.5 %) 19.3 H Plt Count (130 - 400 /CUMM) 32 L MPV (7.4 - 10.4 FL) 10.0 Gran % (42.2 - 75.2 %) 80.6 H Lymphocytes % (20.5 - 51.1 %) 5.5 L Monocytes % (1.7 - 9.3 %) 13.4 H Eosinophils % (0 - 5 %) 0.5 Basophils % (0.0 - 2.0 %) 0 Absolute Granulocytes (1.4 - 6.5 /CUMM) 8.8 H Segmented Neutrophils (42.2 - 75.2 %) 69 Band Neutrophils (0.0 - 5.0 %) 12 H Absolute Lymphocytes (1.2 - 3.4 /CUMM) 0.6 L Lymphocytes (20.5 - 51.1 %) 11 L Monocytes (1.7 - 9.3 %) 4 Absolute Monocytes (0.10 - 0.60 /CUMM) 1.5 H Absolute Eosinophils (0.0 - 0.7 /CUMM) 0.1 Basophils (0.0 - 2.0 %) 1 Absolute Basophils (0.0 - 0.2 /CUMM) 0 Nucleated RBCs (0.0 - 0.0 /100WBC) 1 H Platelet Estimate (ADEQUATE) DECREASED Normocytic RBCs VERIFIED Normochromic RBCs VERIFIED ESR Westergren (0 - 10 MM) 116 H 09/06 09/06 09/06 2130 1950 1820 Chemistry Sodium (137 - 145 mmol/L) 141 Potassium (3.5 - 5.1 mmol/L) 4.0 Chloride (98 - 107 mmol/L) 104 Carbon Dioxide (22 - 30 mmol/L) 19 L Anion Gap (5 - 16) 19 H BUN (9 - 20 mg/dL) 80 H Creatinine (0.7 - 1.2 mg/dL) 3.4 H Estimated GFR (>60 ml/min) 19 L Glucose (65 - 99 mg/dL) 189 H Lactic Acid (0.7 - 2.1 mmol/L) Cancelled 2.8 H Calcium (8.4 - 10.2 mg/dL) 7.9 L Phosphorus (2.5 - 4.5 mg/dL) 5.1 H Magnesium (1.6 - 2.3 mg/dL) 2.3 Total Bilirubin (0.2 - 1.3 mg/dL) 4.6 H AST (17 - 59 U/L) 207 H ALT (21 - 72 U/L) 110 H Troponin I (<0.11 ng/ml) 0.39 *H Albumin (3.5 - 5.0 g/dL) 2.6 L Hematology CBC w Diff NO MAN DIFF REQ WBC (4.8 - 10.8 /CUMM) 11.5 H RBC (4.70 - 6.10 /CUMM) 4.44 L Hgb (14.0 - 18.0 G/DL) 11.7 L Hct (42 - 52 %) 35.8 L MCV (80.0 - 94.0 FL) 80.8 MCH (27.0 - 31.0 PG) 26.4 L MCHC (33.0 - 37.0 G/DL) 32.6 L RDW (11.5 - 14.5 %) 19.3 H Plt Count (130 - 400 /CUMM) 36 L MPV (7.4 - 10.4 FL) 10.2 Gran % (42.2 - 75.2 %) 83.9 H Lymphocytes % (20.5 - 51.1 %) 3.8 L Monocytes % (1.7 - 9.3 %) 12.2 H Eosinophils % (0 - 5 %) 0.1 Basophils % (0.0 - 2.0 %) 0 Absolute Granulocytes (1.4 - 6.5 /CUMM) 9.6 H Absolute Lymphocytes (1.2 - 3.4 /CUMM) 0.4 L Absolute Monocytes (0.10 - 0.60 /CUMM) 1.4 H Absolute Eosinophils (0.0 - 0.7 /CUMM) 0 Absolute Basophils (0.0 - 0.2 /CUMM) 0 09/06 09/06 1430 1130 Chemistry Lactic Acid (0.7 - 2.1 mmol/L) 3.2 H 3.6 H Imaging/Other Studies: EXAM TYPE: RAD - XRY-PORTABLE CHEST XRAY EXAMINATION: XR PORTABLE CHEST CLINICAL INFORMATION: Assess endotracheal tube position COMPARISON: Chest x-ray dated 09/06/2017 TECHNIQUE: Portable frontal view of the chest was obtained. FINDINGS: Interval placement of endotracheal tube which terminates approximately 5 cm above biju. Dual lead left-sided isthmic device in place. Status post median sternotomy. Stable cardiomegaly. Interval worsening vascular congestion and bilateral interstitial edema. Trace pleural effusion. Hazy opacity noted in the retrocardiac region left base likely representing infiltrate or atelectasis. IMPRESSION: Endotracheal tube terminates approximately 5 cm above the biju. Worsening vascular congestion and bilateral interstitial edema. Increasing opacity retrocardiac region left base consistent with infiltrate or atelectasis. Trace effusion suspected.
--- NOTE | 2017-09-09 12:30 | RADIOLOGY REPORT ---
EXAMINATION: XR PORTABLE CHEST CLINICAL INFORMATION: Intubated patient. Comparison from previous. Comparison of lines and tubes. COMPARISON: Several prior chest x-rays, most recent of which is dated 09/08/2017. TECHNIQUE: Portable AP semierect view of the chest was obtained. FINDINGS: Multiple EKG leads overlie the chest. The patient is status post median sternotomy and CABG surgery. The cardiomediastinal silhouette is enlarged. Endotracheal tube is 6.3 cm above the biju. Right atrial pacer lead and right ventricular ICD lead are in place. Low lung volumes are seen with diffuse parenchymal opacities bilaterally, suggesting pulmonary edema and small pleural effusions, right greater than left. There is likely associated bibasilar subsegmental atelectasis. No pneumothorax is seen. Bony structures are grossly unremarkable. IMPRESSION: 1. Endotracheal tube tip 6.3 cm above the biju. 2. Pacer and ICD leads unchanged. 3. No significant change in pulmonary edema and associated small pleural effusions and bibasilar atelectasis.
--- NOTE | 2017-09-09 12:53 | PN- Hematology ---
Subjective Subjective: He remains intubated and sedated. He has no fever or chills. He has no new symptoms. Review of Systems: Unable to obtain due to intubation and sedation. Objective Vital Signs and I&Os Vital Signs Date Time Temp Pulse Resp B/P B/P Pulse O2 O2 Flow FiO2 Mean Ox Delivery Rate 09/09 1151 45 09/09 0828 45 09/09 0800 98 Ventilator 45% 09/09 0800 98.0 66 20 120/50 97 Ventilator 45% 09/09 0546 45 09/09 0400 95 Ventilator 45% 09/09 0324 45 09/09 0108 45 09/09 0000 98.8 59 30 108/61 95 Ventilator 45% 09/09 0000 95 Ventilator 45% 09/08 2242 45 09/08 2000 94 Ventilator 50% 09/08 1900 50 09/08 1645 60 09/08 1600 94 Ventilator 70% 09/08 1600 97.8 108 28 90/40 94 Ventilator 70% 09/08 1404 70 Intake & Output 09/09 1600 09/09 0800 09/09 0000 09/08 1600 09/08 0800 09/08 0000 Intake Total 1607 1004 1380 888 660 Output Total 365 815 210 2760 700 Balance 1242 409 540 -212 -40 Intake, IV 1607 1004 1380 888 100 Intake, Oral 560 Number 1 1 1 1 Bowel Movements Output, Urine 365 325 900 7735 700 Patient 114.787 kg Weight Physical Exam: General Appearance: no apparent distress, obese Head: normal appearance Eyes: Bilateral: PERRL. Ears, Nose, Throat: ET tube in place, dry blood on lips Respiratory: chest non-tender, no respiratory distress, rhonchi, ventilator noise Cardiovascular: tachycardia, irregularly irregular Gastrointestinal: non-tender, no organomegaly, abnormal bowel sounds (hypoactive ), distention Extremities: Bilateral lower extremity 2+ edema up to knee, R>L Neurologic/Psych: sedated Skin: warm/dry Current Medications: Current Medications Sig/Jasvir Start time Last Medication Dose Route Stop Time Status Admin Acetaminophen 650 MG Q6P PRN 09/06 0345 AC PO Acetaminophen 1,000 MG Q6P PRN 09/06 0345 AC 09/06 IV 0359 Albuterol Sulfate 3 ML Q4P PRN 09/06 1115 AC INH Ampicillin Sodium/ 3,000 MG Q8H 09/07 1745 AC 09/09 Sulbactam Sodium IV 0918 Sodium Chloride 100 ML Aspirin Buffered 81 MG DAILY 09/06 0900 09/09 PO 0754 Atorvastatin Calcium 80 MG 1700 09/08 1700 PO Dextrose/Water 1,000 ML Q13H 09/09 1145 09/09 IV 1225 Diltiazem HCl 125 MG Q8H 09/08 2100 AC 09/09 Dextrose/Water 100 ML IV 0530 Diltiazem HCl 125 MG Q12H 09/08 1230 VT 09/08 Dextrose/Water 100 ML IV 09/08 2100 1231 Enoxaparin Sodium 40 MG DAILY 09/06 0900 VT 09/09 SC 0754 Folic Acid 1 MG DAILY 09/07 1023 09/09 PO 0754 Furosemide 60 MG ONCE ONE 09/09 1145 VT 09/09 IV 09/09 1146 1228 Insulin Human Regular 4 UNITS .STK-MED ONE 09/09 0033 DC IV 09/09 0034 Insulin Human Regular 6 UNITS .STK-MED ONE 09/08 1943 DC IV 09/08 1944 Insulin Human Regular 0 Q6 09/06 1223 09/09 SC 0528 Lorazepam 50 MG Q24H 09/09 0830 09/09 Sodium Chloride 500 ML IV 0954 Lorazepam 2 MG ONCE ONE 09/08 1315 VT 09/08 IV 09/08 1316 1318 Multivitamins 1 TAB DAILY 09/07 1023 09/09 PO 0754 Pantoprazole Sodium 40 MG DAILY 09/09 0900 09/09 IV 0755 Propofol 1,000 MG Q5H 09/08 2000 09/09 N/A 1 UNIT IV 0532 Propofol 1,000 MG .STK-MED ONE 09/08 1319 DC IV 09/08 1320 Propofol 1,000 MG Q12H 09/08 1115 VT 09/08 N/A 1 UNIT IV 09/09 1999 1316 Sodium Chloride 1,000 ML Q13H 09/09 0815 DC IV Sodium Chloride 500 ML BOLUS ONE 09/09 0300 VT 09/09 IV 09/09 0359 0259 Sodium Chloride 1,000 ML Q6H 09/08 0815 VT 09/09 IV 0519 Thiamine HCl 50 MG DAILY 09/07 1023 09/09 PO 0754 Results Last 24 Hours of Lab Results: Laboratory Tests 09/09 09/09 0825 0400 Blood Gas pH (7.35 - 7.45 PH) 7.39 pCO2 (35 - 45 TORR) 28 L pO2 (80 - 100 TORR) 74 L HCO3 (21 - 28 MEQ/L) 17 L ABG O2 Sat (Measured) (>96.0 %) 93.0 L Carboxyhemoglobin (1.5 - 5.0 %) 0.7 L O2 Concentration % 45% Respiration Rate (BPM) 20 O2 Delivery Method VENT Vent Mode VC-AC Expiratory Pressure (CMH2O/P) 5 Tidal Volume (CC) 550 Pressure Support (CMH2O/P) 0 Chemistry Sodium (137 - 145 mmol/L) 148 H Potassium (3.5 - 5.1 mmol/L) 3.6 Chloride (98 - 107 mmol/L) 115 H Carbon Dioxide (22 - 30 mmol/L) 18 L Anion Gap (5 - 16) 15 BUN (9 - 20 mg/dL) 110 *H Creatinine (0.7 - 1.2 mg/dL) 4.0 H Estimated GFR (>60 ml/min) 15 L Glucose (65 - 99 mg/dL) 163 H Calcium (8.4 - 10.2 mg/dL) 8.2 L Phosphorus (2.5 - 4.5 mg/dL) 5.3 H Magnesium (1.6 - 2.3 mg/dL) 2.8 H Total Bilirubin (0.2 - 1.3 mg/dL) 1.8 H AST (17 - 59 U/L) 199 H ALT (21 - 72 U/L) 92 H Albumin (3.5 - 5.0 g/dL) 2.1 L Hematology CBC w Diff NO MAN DIFF REQ WBC (4.8 - 10.8 /CUMM) 11.2 H RBC (4.70 - 6.10 /CUMM) 3.86 L Hgb (14.0 - 18.0 G/DL) 10.2 L Hct (42 - 52 %) 31.1 L MCV (80.0 - 94.0 FL) 80.5 MCH (27.0 - 31.0 PG) 26.4 L MCHC (33.0 - 37.0 G/DL) 32.8 L RDW (11.5 - 14.5 %) 20.3 H Plt Count (130 - 400 /CUMM) 31 L MPV (7.4 - 10.4 FL) 9.9 Gran % (42.2 - 75.2 %) 70.8 Lymphocytes % (20.5 - 51.1 %) 12.6 L Monocytes % (1.7 - 9.3 %) 15.2 H Eosinophils % (0 - 5 %) 1.4 Basophils % (0.0 - 2.0 %) 0 Absolute Granulocytes (1.4 - 6.5 /CUMM) 7.9 H Absolute Lymphocytes (1.2 - 3.4 /CUMM) 1.4 Absolute Monocytes (0.10 - 0.60 /CUMM) 1.7 H Absolute Eosinophils (0.0 - 0.7 /CUMM) 0.2 Absolute Basophils (0.0 - 0.2 /CUMM) 0 Miscellaneous Phlebotomy Draw Site LEFT RADIAL 09/08 09/08 1424 1400 Blood Gas pH (7.35 - 7.45 PH) 7.33 L pCO2 (35 - 45 TORR) 34 L pO2 (80 - 100 TORR) 103 H HCO3 (21 - 28 MEQ/L) 18 L ABG O2 Sat (Measured) (>96.0 %) 97.0 Carboxyhemoglobin (1.5 - 5.0 %) 0.3 L O2 Concentration % 70% Respiration Rate (BPM) 20 O2 Delivery Method VENT Vent Mode VC/AC Expiratory Pressure (CMH2O/P) 5 Tidal Volume (CC) 550 Coagulation PT (9.4 - 12.5 SEC) 14.7 H INR (0.90 - 1.17) 1.34 H APTT (25 - 37 SEC) 33 Fibrinogen Activity (200 - 393 MG/DL) 659 H Miscellaneous Phlebotomy Draw Site RIGHT RADIAL Assessment/Plan Hematology Assessment/Recommendations: Mr. Rooney is a 61-year-old man with DM, HTN, CAD s/p SD, CABG, AICD/pacemaker, prostate cancer s/p TURP, cirrhosis, and recurrent cellulitis of the left thigh s/p right great toe debridement who presented to the hospital with slurred speech and left facial drop for a few days. He was noted to have TIA with CT head demonstrating subtle low-attenuation noted in the junction of the posterior limb and internal capsule and right hippocampal junction. He is tentatively undergoing JESUS for concerns with endocarditis and possible septic emboli. Blood cultures grew beta strep group B. He is on Unasyn. ID is following. He continues to have low but stable platelet count. This is like related to his acute decompensation. He will continue to be monitored for now. DIC should be monitored. He is also noted to have ? underlying liver disease. He should continue on with monitoring and transfusion as needed. Thrombocytopenia: -monitor for DIC -transfusion platelet if: -<10,000 -<20,000 with fever -<50,000 with bleeding and ? procedures Renal injury: -follow up with renal recommendations -monitor BMP Beta Strep Group B bacteremia: -ID is following -Unaysn Acute respiratory failure: -primary care/pulmony as currently managed Please call [phone] with any questions or concerns. Problem List: 1. Thrombocytopenia 2. DEMETRIO (acute kidney injury) 3. CVA (cerebral vascular accident) 4. Coagulopathy 5. Bacteremia
--- NOTE | 2017-09-09 13:37 | RADIOLOGY REPORT ---
EXAMINATION: XR PORTABLE ABDOMEN CLINICAL INFORMATION: Confirm OG tube placement. COMPARISON: Chest radiograph 09/09/2017. TECHNIQUE: AP view of the abdomen. FINDINGS: Enteric tube tip and side-hole below the left hemidiaphragm. Multiple wires project over the partially imaged chest. Median sternotomy wires. ICD lead projects over the right ventricle. Surgical clips right upper quadrant. Electronic device projects over the right lower abdomen. IMPRESSION: Enteric tube tip and side-hole are below the left hemidiaphragm.
[2017-09-09 16:00] VITALS: BP 140/70
[2017-09-10] VITALS: BP 160/62
[2017-09-10 04:59] LABS: ABSOLUTE BASOPHIL COUNT 0 /CUMM (0.0-0.2); ABSOLUTE EOSINOPHIL COUNT 0.3 /CUMM (0.0-0.7); ABSOLUTE GRANULOCYTE CT 9.5 /CUMM (1.4-6.5); ABSOLUTE LYMPH COUNT 1.1 /CUMM (1.2-3.4); ABSOLUTE MONOCYTE COUNT 1.2 /CUMM (0.10-0.60); BASOPHIL % 0.3 % (0.0-2.0); EOSINOPHIL % 2.1 % (0-5); GRANULOCYTE % 78.6 % (42.2-75.2); HEMATOCRIT 35.4 % (42-52); MEAN CORPUSCULAR HGB 26.2 PG (27.0-31.0); MEAN CORPUSCULAR HGB CONC 32.2 G/DL (33.0-37.0); MEAN CORPUSCULAR VOLUME 81.2 FL (80.0-94.0); MEAN PLATELET VOLUME 9.8 FL (7.4-10.4); RBC DISTRIBUTION WIDTH 20.4 % (11.5-14.5); RED BLOOD CELL CT 4.36 /CUMM (4.70-6.10)
[2017-09-10 05:10] LABS: PLATELET COUNT 54 /CUMM (130-400)
--- NOTE | 2017-09-10 07:31 | PN- Resident CRCU ---
Subjective HPI/CRCU Issues: Bacteremia Increased work of breathing requiring intubation Acute kidney injury Charcot arthropathy 24 Hour Events: Day 3 of intubation, sedated No worsening white count or fevers overnight Echo suggestive of possible valvular vegetation Objective Vital Signs & I&O Last 8 Hrs of Vitals and I&O: Laboratory Tests 09/10 09/10 09/10 1213 0857 0415 Chemistry Sodium (137 - 145 mmol/L) 148 H 150 H Potassium (3.5 - 5.1 mmol/L) 3.4 L 3.5 Chloride (98 - 107 mmol/L) 114 H 114 H Carbon Dioxide (22 - 30 mmol/L) 19 L 19 L Anion Gap (5 - 16) 15 16 BUN (9 - 20 mg/dL) 92 H 103 *H Creatinine (0.7 - 1.2 mg/dL) 3.3 H 3.5 H Estimated GFR (>60 ml/min) 19 L 18 L Glucose (65 - 99 mg/dL) 292 H 236 H Calcium (8.4 - 10.2 mg/dL) 8.3 L 8.6 Phosphorus (2.5 - 4.5 mg/dL) 4.6 H 4.9 H Magnesium (1.6 - 2.3 mg/dL) 2.1 2.4 H Total Bilirubin (0.2 - 1.3 mg/dL) 1.4 H 1.6 H AST (17 - 59 U/L) 152 H 200 H ALT (21 - 72 U/L) 95 H 106 H Albumin (3.5 - 5.0 g/dL) 2.3 L 2.5 L Coagulation PT (9.4 - 12.5 SEC) 13.6 H INR (0.90 - 1.17) 1.24 H APTT (25 - 37 SEC) 28 Fibrinogen Activity (200 - 393 MG/DL) 894 H D-Dimer High Sensitivty (0 - 243 ng/ml) 3590 H Hematology CBC w Diff NO MAN DIFF REQ WBC (4.8 - 10.8 /CUMM) 12.0 H RBC (4.70 - 6.10 /CUMM) 4.36 L Hgb (14.0 - 18.0 G/DL) 11.4 L Hct (42 - 52 %) 35.4 L MCV (80.0 - 94.0 FL) 81.2 MCH (27.0 - 31.0 PG) 26.2 L MCHC (33.0 - 37.0 G/DL) 32.2 L RDW (11.5 - 14.5 %) 20.4 H Plt Count (130 - 400 /CUMM) 54 L MPV (7.4 - 10.4 FL) 9.8 Gran % (42.2 - 75.2 %) 78.6 H Lymphocytes % (20.5 - 51.1 %) 9.0 L Monocytes % (1.7 - 9.3 %) 10.0 H Eosinophils % (0 - 5 %) 2.1 Basophils % (0.0 - 2.0 %) 0.3 Absolute Granulocytes (1.4 - 6.5 /CUMM) 9.5 H Absolute Lymphocytes (1.2 - 3.4 /CUMM) 1.1 L Absolute Monocytes (0.10 - 0.60 /CUMM) 1.2 H Absolute Eosinophils (0.0 - 0.7 /CUMM) 0.3 Absolute Basophils (0.0 - 0.2 /CUMM) 0 Vital Signs Date Time Temp Pulse Resp B/P B/P Pulse O2 O2 Flow FiO2 Mean Ox Delivery Rate 07/ 1615 35 07/18 1600 97.3 68 20 105/54 97 Ventilator 35% 07/18 1600 97 Ventilator 35% 07/18 1412 35 07/18 1200 97 Ventilator 35% 07/18 1143 35 07/18 0819 35 07/18 0800 96 Ventilator 40% 07/18 0800 97.1 72 28 140/62 96 Ventilator 40% 07/18 0602 40 07/18 0400 99 Ventilator 40% 07/18 0348 40 07/18 0051 40 07/18 0000 97 Ventilator 40% 07/18 0000 97.9 62 29 160/62 97 Ventilator 40% 07/17 2152 40 07/17 2000 98 Ventilator 40% Intake & Output 07/18 1600 07/18 0800 07/18 0000 Intake Total 1643 946 741 Output Total 2300 1750 1200 Balance -657 -804 -459 Intake, IV 1100 522 611 Intake, Tube 243 134 30 Feeding Intake, Tube 300 290 100 Irrigant Number 1 1 1 Bowel Movements Output, Urine 2300 1750 1200 Intake & Output 07/18 1600 Intake Total 1643 Output Total 2300 Balance -657 Intake, IV 1100 Intake, Tube 243 Feeding Intake, Tube 300 Irrigant Number 1 Bowel Movements Output, Urine 2300 Exam General Appearance: sedated, intubated Head: atraumatic, normal appearance Respiratory: quiet respiration Cardiovascular: regular rate/rhythm Gastrointestinal: soft Extremities: swollen right ankle and toe, not changed from previous days Current Medications: Current Medications Sig/Jasvir Start time Last Medication Dose Route Stop Time Status Admin Acetaminophen 650 MG Q6P PRN 09/06 0345 PO Acetaminophen 1,000 MG Q6P PRN 09/06 0345 09/10 IV 1045 Albuterol Sulfate 3 ML Q4P PRN 09/06 1115 DC INH Ampicillin Sodium/ 3,000 MG Q8H 09/07 1745 09/10 Sulbactam Sodium IV 1732 Sodium Chloride 100 ML Aspirin Buffered 81 MG DAILY 09/06 0900 09/10 PO 0834 Atorvastatin Calcium 80 MG 1700 09/08 1700 CO 09/09 PO 1644 Dextrose/Water 1,000 ML Q10H 09/10 1145 09/10 IV 1151 Dextrose/Water 1,000 ML Q8H 09/10 1045 CO 09/10 IV 1040 Dextrose/Water 1,000 ML Q13H 09/10 0545 CO 09/10 IV 0549 Dextrose/Water 1,000 ML Q13H 09/09 1145 CO 09/09 IV 1225 Diltiazem HCl 125 MG Q12H 09/09 1615 09/10 Dextrose/Water 100 ML IV 1728 Fentanyl Citrate 50 MCG ONCE ONE 09/10 1400 CO 09/10 IV 09/10 1401 1401 Folic Acid 1 MG DAILY 09/07 1023 09/10 PO 0834 Furosemide 40 MG .STK-MED ONE 09/10 0823 DC IV 09/10 0824 Furosemide 60 MG ONCE ONE 09/10 0815 CO 09/10 IV 09/10 0816 0830 Hydromorphone HCl 1 MG ONCE ONE 09/10 1545 CO 09/10 IV 09/10 1546 1540 Insulin Aspart 0 Q4 09/10 1400 DC SC Insulin Aspart 0 Q4H 09/10 1200 09/10 SC 1643 Insulin Aspart 0 Q6 09/09 2359 CO 09/10 SC 0511 Insulin Aspart 0 TIDAC 09/09 1700 CO 09/09 SC 1810 Lorazepam 2 MG ONCE ONE 09/10 1400 DC 09/10 IV 09/10 1401 1401 Lorazepam 50 MG Q24H 09/09 0830 AC 09/10 Sodium Chloride 500 ML IV 0830 Multivitamins 1 TAB DAILY 09/07 1023 AC 09/10 PO 0834 Pantoprazole Sodium 40 MG DAILY 09/09 0900 AC 09/10 IV 0832 Potassium Chloride 40 MEQ ONCE ONE 09/10 1515 DC 09/10 PO 09/10 1516 1542 Potassium Chloride 20 MEQ ONCE ONE 09/10 1045 DC 09/10 PO 09/10 1046 1039 Potassium Chloride 20 MEQ ONCE ONE 09/10 0545 DC 09/10 PO 09/10 0546 0549 Propofol 1,000 MG Q5H 09/08 2000 DC 09/09 N/A 1 UNIT IV 1247 Thiamine HCl 50 MG DAILY 09/07 1023 AC 09/10 PO 0834 Impression/Plan Impression/Problem List Impression: Impression: 65 y/o M with PMH of DM, Gout(?), [place] s/p CABG on aspirin/plavix, hypertension and hyperlipidemia was brought to the ED 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 Patient is reported to have had a sudden onset dysarthria, difficulty swallowing and L nasolabial fold drooping. This neurological deficits or transit and result on the patient was in the ICU. Patient was also found to have new onset A. fib . Assessment: 1. Acute Hypoxemic Respiratory Failure now intubated due to increased work of breathing and tachypnea. 2. Atrial Fibrilliation with RVR - now in NSR 3. DEMETRIO 4. Evolving lacunar infarct as evident by today's CT scan . 5. Strep B bacteremia (this is common in diabetic patients) 6. Elevated Troponins. Type II [place]. Now resolved. 7. Elevated ESR 8. Thrombocytopenia most likely secondary to sepsis, there is concern of DIC. Plan: * Continue monitoring in ICU for now. * continue on mechanical ventilation with assist control with VT is of 550, PEEP of 5, respiratory rate of 20, and FiO2 of 60-100. * Currently on IV Unasyn (day 5). * Lower IV Cardizem to 10MG * OG tube for meds administration * TTE - suggestive of endocarditis, will plan for PICC line * Will hold off Atorvastatin 80mg as part of stroke management given the patient has increasing transaminits * DEMETRIO stable. * Increase free water in the context of hypernatremia IV lasix 60mg once * Monitor thrombocytopenia. S/p 2 units. Improving. Repeated DIC panel is not suggestive of DIC most likely patient's cytopenias secondary to sepsis superimposed by liver dysfunction been * Diet: Will start tube feeds today. * DVT Prophylaxis: ALPS only. * Code: Full Code Problem List: 1. Bacteremia 2. Thrombocytopenia Pain Ratin Tomorrow's Labs & Rationales: icu bundle cbc Plan DVT/Prophylaxis: mechanical
--- NOTE | 2017-09-10 07:59 | PN- CRCU ---
Subjective HPI/Critical Care Issues: The patient remains intubated and sedated, on Ativan drip at 2 mg/h. His SAS is 3. Propofol is now off. He continues to remain in sinus rhythm, on a diltiazem drip at 10 mg/h. His blood pressure is well controlled. The patient is afebrile. He has good urine output. He is now tolerating tube feeds without significant residuals. The patient had a JESUS yesterday that showed no thrombus or vegetations. The patient has been stable overnight. Objective Current Medications: Current Medications Sig/Jasvir Start time Last Medication Dose Route Stop Time Status Admin Acetaminophen 650 MG Q6P PRN 09/06 0345 AC PO Acetaminophen 1,000 MG Q6P PRN 09/06 0345 AC 09/06 IV 0359 Albuterol Sulfate 3 ML Q4P PRN 09/06 1115 AC INH Ampicillin Sodium/ 3,000 MG Q8H 09/07 1745 09/10 Sulbactam Sodium IV 0108 Sodium Chloride 100 ML Aspirin Buffered 81 MG DAILY 09/06 0900 09/09 PO 0754 Atorvastatin Calcium 80 MG 1700 09/08 1700 09/09 PO 1644 Dextrose/Water 1,000 ML Q13H 09/10 0545 09/10 IV 0549 Dextrose/Water 1,000 ML Q13H 09/09 1145 GA 09/09 IV 1225 Diltiazem HCl 125 MG Q12H 09/09 1615 09/10 Dextrose/Water 100 ML IV 0549 Diltiazem HCl 125 MG Q8H 09/08 2100 GA 09/09 Dextrose/Water 100 ML IV 09/09 1614 0530 Enoxaparin Sodium 40 MG DAILY 09/06 0900 GA 09/09 SC 0754 Folic Acid 1 MG DAILY 09/07 1023 09/09 PO 0754 Furosemide 60 MG ONCE ONE 09/09 1145 DC 09/09 IV 09/09 1146 1228 Insulin Aspart 0 Q6 09/09 2359 09/10 SC 0511 Insulin Aspart 0 TIDAC 09/09 1700 GA 09/09 SC 1810 Insulin Human Regular 2 UNITS .STK-MED ONE 09/09 1243 DC IV 09/09 1244 Insulin Human Regular 0 Q6 09/06 1223 GA 09/09 SC 1245 Lorazepam 50 MG Q24H 09/09 0830 09/09 Sodium Chloride 500 ML IV 0954 Multivitamins 1 TAB DAILY 09/07 1023 AC 09/09 PO 0754 Pantoprazole Sodium 40 MG DAILY 09/09 0900 AC 09/09 IV 0755 Potassium Chloride 20 MEQ ONCE ONE 09/10 0545 DC 09/10 PO 09/10 0546 0549 Propofol 1,000 MG Q5H 09/09 1999 DC 09/09 N/A 1 UNIT IV 1247 Sodium Chloride 1,000 ML Q13H 09/09 0815 DC IV Sodium Chloride 1,000 ML Q6H 09/08 0815 DC 09/09 IV 0519 Thiamine HCl 50 MG DAILY 09/07 1023 AC 09/09 PO 0754 Vital Signs & I&O Last 24 Hrs of Vitals and I&O: Vital Signs Date Time Temp Pulse Resp B/P B/P Pulse O2 O2 Flow FiO2 Mean Ox Delivery Rate 09/10 0602 40 09/10 0400 99 Ventilator 40% 09/10 0348 40 09/10 0051 40 09/10 0000 97 Ventilator 40% 09/10 0000 97.9 62 29 160/62 97 Ventilator 40% 09/09 2152 40 09/09 2000 98 Ventilator 40% 09/09 1851 40 09/09 1601 40 09/09 1600 96 Ventilator 40% 09/09 1600 98.0 70 30 140/70 96 Ventilator 40% 09/09 1355 40 09/09 1200 98 Ventilator 45% 09/09 1151 45 09/09 0828 45 09/09 0800 98 Ventilator 45% 09/09 0800 98.0 66 20 120/50 97 Ventilator 45% Intake & Output 09/10 0800 09/10 0000 09/09 1600 Intake Total 736 965 6282 Output Total 1750 1200 1500 Balance -804 -459 4 Intake, Blood 243 Product Intake, IV 619 611 4371 Intake, Tube 134 30 Feeding Intake, Tube 290 100 Irrigant Number 1 1 1 Bowel Movements Output, Urine 1750 1200 1500 Patient 253 lb Weight Physical Exam General Appearance: Sedated and intubated, no distress Head: atraumatic, normal appearance Eyes: Bilateral: normal appearance, PERRL Neck: normal inspection, supple Respiratory: Bilateral anterior rhonchi heard Cardiovascular: S1 and S2 heard Gastrointestinal: normal bowel sounds, soft, non-tender Extremities: Right foot swelling over the dorsum, no erythema Skin: intact, normal color Results Last 24 Hrs of Lab Results: Laboratory Tests 09/10/17 0415: Anion Gap 16, Estimated GFR 18 L, Glucose 236 H, Calcium 8.6, Phosphorus 4.9 H, Magnesium 2.4 H, Total Bilirubin 1.6 H, AST 200 H, ALT 106 H, Albumin 2.5 L, CBC w Diff NO MAN DIFF REQ, RBC 4.36 L, MCV 81.2, MCH 26.2 L, MCHC 32.2 L , RDW 20.4 H, MPV 9.8, Gran % 78.6 H, Lymphocytes % 9.0 L, Monocytes % 10.0 H, Eosinophils % 2.1, Basophils % 0.3, Absolute Granulocytes 9.5 H, Absolute Lymphocytes 1.1 L, Absolute Monocytes 1.2 H, Absolute Eosinophils 0.3, Absolute Basophils 0 09/09/17 0825: pH 7.39, pCO2 28 L, pO2 74 L, HCO3 17 L, ABG O2 Sat (Measured) 93.0 L, Carboxyhemoglobin 0.7 L, O2 Concentration % 45%, Respiration Rate 20, O2 Delivery Method VENT, Vent Mode VC-AC, Expiratory Pressure 5, Tidal Volume 550, Pressure Support 0, Phlebotomy Draw Site LEFT RADIAL Diagnostic Data CXR Findings: 09/09/17: 1. Endotracheal tube tip 6.3 cm above the biju. 2. Pacer and ICD leads unchanged. 3. No significant change in pulmonary edema and associated small pleural effusions and bibasilar atelectasis. Impression/Plan Impression/Plan Impression/Plan: 1. Worsening hypernatremia. 2. Acute on chronic renal failure, creatinine trending down slowly. 3. Improving thrombocytopenia, likely secondary to sepsis. 4. Acute hypoxemic respiratory failure in the setting of fluid overload versus aspiration pneumonia. 5. Group B strep sepsis. 6. Atrial fibrillation, now in sinus rhythm, on diltiazem drip. 7. New lacunar stroke. 8. Positive troponins, suggestive of demand ischemia. 9. Cirrhosis, LFTs are improving. 10. Right lower extremity fractures and abscess formation. 11. Encephalopathy. 12. Malnutrition. Recommendations: * Increase free water flushes to 200 mL every 4 hours. * Advance tube feeds to goal as tolerated. * Give a bolus of D5W 500 mL 1 now. * Continue to follow nephrology's recommendations regarding fluid balance and renal failure. * Continue tube feeds. * Order stool for C. difficile if any diarrhea occurs. * Decrease respiratory rate to 14 breaths per minute. * Continue nebs/total respiratory care. * Follow up morning chest x-ray results. * Continue Ativan drip, however attempt to titrate for an SAS of 4. * Discussed the continued need for Cardizem drip with cardiology. * Continue to monitor for atrial fibrillation/flutter. Will start IV amiodarone if this develops. * Please follow-up podiatry evaluation. * Continue IV Unasyn. * Ultrasound of the right foot to be done as the patient cannot do an MRI while intubated. We will continue to follow ID input. * Transfuse platelets if cutoff points are met, as per hematology. * DVT prophylaxis at all times with Alps. Lovenox off, no heparin due to thrombocytopenia. * Continue ventilator bundle in all times. * The patient remains critically ill. Continue all supportive care appear
[2017-09-10 08:00] VITALS: BP 140/62
--- NOTE | 2017-09-10 08:17 | PN- Cardiology ---
Subjective Subjective: Patient remains intubated, hemodynamically relatively stable. He responds to verbal stimuli with body movement. Review of Systems: ROS non obtainable due to intubation Objective Vital Signs and I&Os Vital Signs Date Time Temp Pulse Resp B/P B/P Pulse O2 O2 Flow FiO2 Mean Ox Delivery Rate 09/10 0602 40 09/10 0400 99 Ventilator 40% 09/10 0348 40 09/10 0051 40 09/10 0000 97 Ventilator 40% 09/10 0000 97.9 62 29 160/62 97 Ventilator 40% 09/09 2152 40 09/09 2000 98 Ventilator 40% 09/09 1851 40 09/09 1601 40 09/09 1600 96 Ventilator 40% 09/09 1600 98.0 70 30 140/70 96 Ventilator 40% 09/09 1355 40 09/09 1200 98 Ventilator 45% 09/09 1151 45 09/09 0828 45 Intake & Output 09/10 1600 09/10 0800 09/10 0000 09/09 1600 09/09 0800 09/09 0000 Intake Total 607 341 3844 1607 1004 Output Total 1750 1200 1500 365 595 Balance -804 -459 4 1242 409 Intake, Blood 243 Product Intake, IV 733 600 7173 1607 1004 Intake, Tube 134 30 Feeding Intake, Tube 290 100 Irrigant Number 1 1 1 1 Bowel Movements Output, Urine 1750 1200 1500 365 595 Patient 253 lb Weight Physical Exam: Intubated, comfortable, not agitated HEENT-PERRLA Neck-unable to assess JVP due to intubation Lungs-clear anteriorly Heart-S1S2 regular, no murmur Abdomen-soft, not tender, BS+, no organomegaly, no masses Extr-1+ bilateral edema, more right foot Neuro-sedated, non focal Vascular-no carotid bruits, 1+ distal pulses Current Medications: Current Medications Sig/Jasvir Start time Last Medication Dose Route Stop Time Status Admin Acetaminophen 650 MG Q6P PRN 09/06 0345 AC PO Acetaminophen 1,000 MG Q6P PRN 09/06 0345 AC 09/06 IV 0359 Albuterol Sulfate 3 ML Q4P PRN 09/06 1115 AC INH Ampicillin Sodium/ 3,000 MG Q8H 09/07 1745 AC 09/10 Sulbactam Sodium IV 0108 Sodium Chloride 100 ML Aspirin Buffered 81 MG DAILY 09/06 0900 AC 09/09 PO 0754 Atorvastatin Calcium 80 MG 1700 09/08 1700 PA 09/09 PO 1644 Dextrose/Water 1,000 ML Q13H 09/10 0545 09/10 IV 0549 Dextrose/Water 1,000 ML Q13H 09/09 1145 PA 09/09 IV 1225 Diltiazem HCl 125 MG Q12H 09/09 1615 09/10 Dextrose/Water 100 ML IV 0549 Diltiazem HCl 125 MG Q8H 09/08 2100 PA 09/09 Dextrose/Water 100 ML IV 09/09 1614 0530 Enoxaparin Sodium 40 MG DAILY 09/06 0900 PA 09/09 SC 0754 Folic Acid 1 MG DAILY 09/07 1023 09/09 PO 0754 Furosemide 60 MG ONCE ONE 09/10 0815 IV 09/10 0816 Furosemide 60 MG ONCE ONE 09/09 1145 PA 09/09 IV 09/09 1146 1228 Insulin Aspart 0 Q6 09/09 2359 09/10 SC 0511 Insulin Aspart 0 TIDAC 09/09 1700 PA 09/09 SC 1810 Insulin Human Regular 2 UNITS .STK-MED ONE 09/09 1243 DC IV 09/09 1244 Insulin Human Regular 0 Q6 09/06 1223 PA 09/09 SC 1245 Lorazepam 50 MG Q24H 09/09 0830 09/09 Sodium Chloride 500 ML IV 0954 Multivitamins 1 TAB DAILY 09/07 1023 09/09 PO 0754 Pantoprazole Sodium 40 MG DAILY 09/09 0900 09/09 IV 0755 Potassium Chloride 20 MEQ ONCE ONE 09/10 0545 PA 09/10 PO 09/10 0546 0549 Propofol 1,000 MG Q5H 09/08 2000 PA 09/09 N/A 1 UNIT IV 1247 Sodium Chloride 1,000 ML Q13H 09/09 0815 PA IV Thiamine HCl 50 MG DAILY 09/07 1023 09/09 PO 0754 Results Last 48 Hrs of Labs/Mics: Laboratory Tests 09/10/17 0415: Anion Gap 16, Estimated GFR 18 L, Glucose 236 H, Calcium 8.6, Phosphorus 4.9 H, Magnesium 2.4 H, Total Bilirubin 1.6 H, AST 200 H, ALT 106 H, Albumin 2.5 L, CBC w Diff NO MAN DIFF REQ, RBC 4.36 L, MCV 81.2, MCH 26.2 L, MCHC 32.2 L , RDW 20.4 H, MPV 9.8, Gran % 78.6 H, Lymphocytes % 9.0 L, Monocytes % 10.0 H, Eosinophils % 2.1, Basophils % 0.3, Absolute Granulocytes 9.5 H, Absolute Lymphocytes 1.1 L, Absolute Monocytes 1.2 H, Absolute Eosinophils 0.3, Absolute Basophils 0 09/09/17 0825: pH 7.39, pCO2 28 L, pO2 74 L, HCO3 17 L, ABG O2 Sat (Measured) 93.0 L, Carboxyhemoglobin 0.7 L, O2 Concentration % 45%, Respiration Rate 20, O2 Delivery Method VENT, Vent Mode VC-AC, Expiratory Pressure 5, Tidal Volume 550, Pressure Support 0, Phlebotomy Draw Site LEFT RADIAL 09/09/17 0400: Anion Gap 15, Estimated GFR 15 L, Glucose 163 H, Calcium 8.2 L, Phosphorus 5.3 H, Magnesium 2.8 H, Total Bilirubin 1.8 H, AST 199 H, ALT 92 H, Albumin 2.1 L, CBC w Diff NO MAN DIFF REQ, RBC 3.86 L, MCV 80.5, MCH 26.4 L, MCHC 32.8 L, RDW 20.3 H, MPV 9.9, Gran % 70.8, Lymphocytes % 12.6 L, Monocytes % 15.2 H, Eosinophils % 1.4, Basophils % 0, Absolute Granulocytes 7.9 H, Absolute Lymphocytes 1.4, Absolute Monocytes 1.7 H, Absolute Eosinophils 0.2, Absolute Basophils 0 09/08/17 1424: pH 7.33 L, pCO2 34 L, pO2 103 H, HCO3 18 L, ABG O2 Sat (Measured) 97.0, Carboxyhemoglobin 0.3 L, O2 Concentration % 70%, Respiration Rate 20, O2 Delivery Method VENT, Vent Mode VC/AC, Expiratory Pressure 5, Tidal Volume 550, Phlebotomy Draw Site RIGHT RADIAL 09/08/17 1400: PT 14.7 H, INR 1.34 H, APTT 33, Fibrinogen Activity 659 H Assessment/Plan Assessment/Plan 61 year old male with known CAD, PCI in 11/2016, ICD for sustained VT, s/p CABG in 04/2017, HTN, HLP, DM, SAS admitted with respiratory failure, septic shock ( Group B strep in blood), renal and liver failure, CVA, AF with RVR. Source of infection unclear. F/U blood cultures so far negative. Preliminary JESUS negative for endocarditis Platelet count improved, renal function improved. Good response to lasix yesterday. Sodium increased to 150. LFT's remain elevated He remains in sinus on iv cardizem Plan; continue iv cardizem, will change to NGT metoprolol 100 mg bid tomorrow continue atb if he develops recurrent fibrillation/flutter, start iv amiodarone (despite elevated LFT's) continue Aspirin hold atorvastatin until liver function improves Eliquis 2.5 mg ngt bid when platelet count above 80 000 (he should get another CT head prior starting anticoagulation to make sure there is no hemorrhagic conversion of the subacute stroke) Lasix 60 mg iv x 1 today-watch for adequate diuresis-goal 1-2 L negative fluid [id number] hours continue free water for hyponatremia Continue telemetry? Yes
--- NOTE | 2017-09-10 09:17 | PN- Infect Dx ---
Subjective Subjective: Afebrile. He remains sedated on the ventilator. Objective Last 24 Hrs of Vital Signs/I&O Vital Signs Date Time Temp Pulse Resp B/P B/P Pulse O2 O2 Flow FiO2 Mean Ox Delivery Rate 09/10 0819 35 09/10 0800 97.1 72 28 140/62 96 Ventilator 40% 09/10 0602 40 09/10 0400 99 Ventilator 40% 09/10 0348 40 09/10 0051 40 09/10 0000 97 Ventilator 40% 09/10 0000 97.9 62 29 160/62 97 Ventilator 40% 09/09 2152 40 09/09 2000 98 Ventilator 40% 09/09 1851 40 09/09 1601 40 09/09 1600 96 Ventilator 40% 09/09 1600 98.0 70 30 140/70 96 Ventilator 40% 09/09 1355 40 09/09 1200 98 Ventilator 45% 09/09 1151 45 Intake & Output 09/10 1600 09/10 0800 07 0000 Intake Total 946 741 Output Total 1750 1200 Balance -804 -459 Intake, IV 522 611 Intake, Tube 134 30 Feeding Intake, Tube 290 100 Irrigant Number 1 1 Bowel Movements Output, Urine 1750 1200 Physical Exam Other Physical Findings: He is responsive but sedated on the ventilator Lungs are clear anteriorly Heart regular rhythm with no murmur Abdomen is soft, nontender with positive bowel sounds Extremities increased edema and warmth over the dorsum of the right foot, tender to palpation with mild erythema, extending over the anterior aspect of the right lower extremity Barber catheter remains in place Results Last 24 Hours of Lab Results: Laboratory Tests 09/10 09/10 0857 0415 Chemistry Sodium (137 - 145 mmol/L) 150 H Potassium (3.5 - 5.1 mmol/L) 3.5 Chloride (98 - 107 mmol/L) 114 H Carbon Dioxide (22 - 30 mmol/L) 19 L Anion Gap (5 - 16) 16 BUN (9 - 20 mg/dL) 103 *H Creatinine (0.7 - 1.2 mg/dL) 3.5 H Estimated GFR (>60 ml/min) 18 L Glucose (65 - 99 mg/dL) 236 H Calcium (8.4 - 10.2 mg/dL) 8.6 Phosphorus (2.5 - 4.5 mg/dL) 4.9 H Magnesium (1.6 - 2.3 mg/dL) 2.4 H Total Bilirubin (0.2 - 1.3 mg/dL) 1.6 H AST (17 - 59 U/L) 200 H ALT (21 - 72 U/L) 106 H Albumin (3.5 - 5.0 g/dL) 2.5 L Coagulation PT Pending INR Pending APTT Pending Fibrinogen Activity Pending D-Dimer High Sensitivty Pending Hematology CBC w Diff NO MAN DIFF REQ WBC (4.8 - 10.8 /CUMM) 12.0 H RBC (4.70 - 6.10 /CUMM) 4.36 L Hgb (14.0 - 18.0 G/DL) 11.4 L Hct (42 - 52 %) 35.4 L MCV (80.0 - 94.0 FL) 81.2 MCH (27.0 - 31.0 PG) 26.2 L MCHC (33.0 - 37.0 G/DL) 32.2 L RDW (11.5 - 14.5 %) 20.4 H Plt Count (130 - 400 /CUMM) 54 L MPV (7.4 - 10.4 FL) 9.8 Gran % (42.2 - 75.2 %) 78.6 H Lymphocytes % (20.5 - 51.1 %) 9.0 L Monocytes % (1.7 - 9.3 %) 10.0 H Eosinophils % (0 - 5 %) 2.1 Basophils % (0.0 - 2.0 %) 0.3 Absolute Granulocytes (1.4 - 6.5 /CUMM) 9.5 H Absolute Lymphocytes (1.2 - 3.4 /CUMM) 1.1 L Absolute Monocytes (0.10 - 0.60 /CUMM) 1.2 H Absolute Eosinophils (0.0 - 0.7 /CUMM) 0.3 Absolute Basophils (0.0 - 0.2 /CUMM) 0 Last 24 Hours of [place] Results: Sputum culture September 08 no growth so far Blood cultures 2 September 07 negative Recent Imaging Studies: Chest x-ray September 10 decreased bibasilar densities JESUS September 09 negative for any vegetations Assessment/Plan ID Impression: Stable, though remains critically ill, with some improvement in his respiratory status, on decreasing FiO2, improvement in his renal failure, with excellent urine output, and increasing platelets. He remains afebrile with a mild leukocytosis on Unasyn Day 4 of treatment for Group B strep sepsis, with the JESUS negative for any vegetations. Suspect that the right foot is the source of his sepsis, and there appears to be increasing inflammation, though the recent CT scan was negative for any discrete collection. His hospital course has also been complicated by CLINICAL DIETITIAN infarcts, felt to be lacunar, likely related to his episodes of hypotension. His liver enzymes remain elevated, though overall decreased, likely secondary to ongoing sepsis. His sodium continues to increase. Suggestion: 1. Would pursue ultrasound of the right foot 2. Consider CT of the abdomen and pelvis if his liver enzymes remain elevated 3. Correction of his hypernatremia 4. Continue Unasyn
--- NOTE | 2017-09-10 09:21 | RADIOLOGY REPORT ---
EXAMINATION: XR PORTABLE CHEST CLINICAL INFORMATION: Increased work of breathing. Septic. Intubated. COMPARISON: Multiple prior chest x-rays, most recent of which is dated 09/09/2017. TECHNIQUE: Portable AP semierect view of the chest was obtained. FINDINGS: The patient is status post median sternotomy and CABG surgery. Right atrial pacer lead and right ventricular AICD lead are in place. The endotracheal tube is 5.5 cm above the biju. Enteric tube courses into the abdomen with tip not included. Multiple EKG leads overlie the chest. The cardiomediastinal silhouette is enlarged. Low lung volumes are seen with evidence of mild pulmonary edema, improved when compared to the prior study. Small bilateral pleural effusions and mild bibasilar subsegmental atelectasis are also seen, similar to prior exam. Included bony structures are grossly unremarkable. IMPRESSION: 1. Endotracheal tube tip 5.5 cm above the biju. 2. Enteric tube extends into the abdomen with tip not included. 3. Pacer and AICD leads unchanged. 4. Mild pulmonary edema, improved compared to prior exam. 5. No change in small bilateral pleural effusions and bibasilar atelectasis.
--- NOTE | 2017-09-10 10:07 | PN- Nephrology ---
Assessment/Plan Nephrology Assessment: DEMETRIO - Likely 2/2 ischemic ATN in the setting of A fib with RVR and renal hypoperfusion, contrast on 09/05, and additional hypotensive episode. Although much less likely, could be infection related GN for which complements should be followed up (treatment of which is supportive). Renal function improving even with diuresis. No clear dialysis need at this time. Proteinuria - discrepancy between UA and Uprot/Cr raises suspicion for paraprotein for which he should be evaluated. Albumin level is low and proteinuria is nephrotic range. Paraprotein work-up sent. Should note as above that infection related GN is also on the differential. Group B Strep Bacteremia - ?new cerebral infarct - prelim JESUS neg for endocarditis. Foot likely underlying infectious source - ID following. Hypernatremia - 2/2 decreased PO intake. Worse - need to increase free water. Suggestion: -Good UOP - would target UOP >3L day as I's/O's difficult to discern given adminstration of free water - can give additional dose of 60mg IV lasix if needed this afternoon -Increase D5W to 125cc/hr - goal Na correction 6-8meq/day (OK to just check BMP daily) -f/u complements Please call [phone] with ?'s Subjective Subjective: SCr down to 3.5 Na 150 3065cc UOP yesterday - net positive 787cc (on D5W) 1750cc UOP so far today Had gotten 60mg IV lasix yesterday and then again this morning Pulm edema improved Objective Vital Signs and I&Os Vital Signs Date Time Temp Pulse Resp B/P B/P Pulse O2 O2 Flow FiO2 Mean Ox Delivery Rate 09/10 0819 35 09/10 0800 96 Ventilator 40% 09/10 0800 97.1 72 28 140/62 96 Ventilator 40% 09/10 0602 40 09/10 0400 99 Ventilator 40% 09/10 0348 40 09/10 0051 40 09/10 0000 97 Ventilator 40% 09/10 0000 97.9 62 29 160/62 97 Ventilator 40% 09/09 2152 40 09/09 2000 98 Ventilator 40% 07 1851 40 07 1601 40 07 1600 96 Ventilator 40% 09/09 1600 98.0 70 30 140/70 96 Ventilator 40% 09/09 1355 40 09/09 1200 98 Ventilator 45% 07/17 1151 45 Intake & Output 09/10 1600 09/10 0400 09/09 1600 09/09 0400 09/08 1600 09/08 0400 Intake Total 327 667 3891 1004 2268 660 Output Total 1750 1200 7815 497 3019 700 Balance -804 -459 1246 409 328 -40 Intake, Blood 243 Product Intake, IV 732 368 3940 1004 2268 100 Intake, Oral 560 Intake, Tube 134 30 Feeding Intake, Tube 290 100 Irrigant Number 1 1 1 1 2 1 Bowel Movements Output, Urine 1750 1200 3690 182 3317 700 Patient 253 lb 253 lb Weight Physical Exam: Gen - intubated/sedated HEENT - +ETT CV - RRR, no m/r/g Chest - clear mechanical breath sounds Abd - soft, NTND Ext - R>LLE edema; RLE erythema Neuro - sedated Current Medications: Current Medications Sig/Jasvir Start time Last Medication Dose Route Stop Time Status Admin Acetaminophen 650 MG Q6P PRN 09/06 0345 AC PO Acetaminophen 1,000 MG Q6P PRN 09/06 0345 AC 09/06 IV 0359 Albuterol Sulfate 3 ML Q4P PRN 09/06 1115 AC INH Ampicillin Sodium/ 3,000 MG Q8H 09/07 1745 09/10 Sulbactam Sodium IV 0828 Sodium Chloride 100 ML Aspirin Buffered 81 MG DAILY 09/06 0900 09/10 PO 0834 Atorvastatin Calcium 80 MG 1700 09/08 1700 [place] 09/09 PO 1644 Dextrose/Water 1,000 ML Q13H 09/10 0545 09/10 IV 0549 Dextrose/Water 1,000 ML Q13H 09/09 1145 [place] 09/09 IV 1225 Diltiazem HCl 125 MG Q12H 09/09 1615 09/10 Dextrose/Water 100 ML IV 0549 Diltiazem HCl 125 MG Q8H 09/08 2100 DC 09/09 Dextrose/Water 100 ML IV 09/09 1614 0530 Enoxaparin Sodium 40 MG DAILY 09/06 0900 [place] 09/09 SC 0754 Folic Acid 1 MG DAILY 09/07 1023 09/10 PO 0834 Furosemide 60 MG ONCE ONE 09/10 0815 [place] 09/10 IV 09/10 0816 0830 Furosemide 60 MG ONCE ONE 09/09 1145 DC 09/09 IV 09/09 1146 1228 Insulin Aspart 0 Q6 09/09 2359 AC 09/10 SC 0511 Insulin Aspart 0 TIDAC 09/09 1700 DC 09/09 SC 1810 Insulin Human Regular 2 UNITS .STK-MED ONE 09/09 1243 DC IV 09/09 1244 Insulin Human Regular 0 Q6 09/06 1223 DC 09/09 SC 1245 Lorazepam 50 MG Q24H 09/09 0830 AC 09/10 Sodium Chloride 500 ML IV 0830 Multivitamins 1 TAB DAILY 09/07 1023 AC 09/10 PO 0834 Pantoprazole Sodium 40 MG DAILY 09/09 0900 AC 09/10 IV 0832 Potassium Chloride 20 MEQ ONCE ONE 09/10 0545 DC 09/10 PO 09/10 0546 0549 Propofol 1,000 MG Q5H 09/08 2000 DC 09/09 N/A 1 UNIT IV 1247 Sodium Chloride 1,000 ML Q13H 09/09 0815 DC IV Thiamine HCl 50 MG DAILY 09/07 1023 AC 09/10 PO 0834 Results Pertinent Lab Results: Laboratory Tests 09/10 09/10 09/09 0857 0415 0825 Blood Gas pH (7.35 - 7.45 PH) 7.39 pCO2 (35 - 45 TORR) 28 L pO2 (80 - 100 TORR) 74 L HCO3 (21 - 28 MEQ/L) 17 L ABG O2 Sat (Measured) (>96.0 %) 93.0 L Carboxyhemoglobin (1.5 - 5.0 %) 0.7 L O2 Concentration % 45% Respiration Rate (BPM) 20 O2 Delivery Method VENT Vent Mode VC-AC Expiratory Pressure (CMH2O/P) 5 Tidal Volume (CC) 550 Pressure Support (CMH2O/P) 0 Chemistry Sodium (137 - 145 mmol/L) 150 H Potassium (3.5 - 5.1 mmol/L) 3.5 Chloride (98 - 107 mmol/L) 114 H Carbon Dioxide (22 - 30 mmol/L) 19 L Anion Gap (5 - 16) 16 BUN (9 - 20 mg/dL) 103 *H Creatinine (0.7 - 1.2 mg/dL) 3.5 H Estimated GFR (>60 ml/min) 18 L Glucose (65 - 99 mg/dL) 236 H Calcium (8.4 - 10.2 mg/dL) 8.6 Phosphorus (2.5 - 4.5 mg/dL) 4.9 H Magnesium (1.6 - 2.3 mg/dL) 2.4 H Total Bilirubin (0.2 - 1.3 mg/dL) 1.6 H AST (17 - 59 U/L) 200 H ALT (21 - 72 U/L) 106 H Albumin (3.5 - 5.0 g/dL) 2.5 L Coagulation PT Pending INR Pending APTT Pending Fibrinogen Activity Pending D-Dimer High Sensitivty Pending Hematology CBC w Diff NO MAN DIFF REQ WBC (4.8 - 10.8 /CUMM) 12.0 H RBC (4.70 - 6.10 /CUMM) 4.36 L Hgb (14.0 - 18.0 G/DL) 11.4 L Hct (42 - 52 %) 35.4 L MCV (80.0 - 94.0 FL) 81.2 MCH (27.0 - 31.0 PG) 26.2 L MCHC (33.0 - 37.0 G/DL) 32.2 L RDW (11.5 - 14.5 %) 20.4 H Plt Count (130 - 400 /CUMM) 54 L MPV (7.4 - 10.4 FL) 9.8 Gran % (42.2 - 75.2 %) 78.6 H Lymphocytes % (20.5 - 51.1 %) 9.0 L Monocytes % (1.7 - 9.3 %) 10.0 H Eosinophils % (0 - 5 %) 2.1 Basophils % (0.0 - 2.0 %) 0.3 Absolute Granulocytes (1.4 - 6.5 /CUMM) 9.5 H Absolute Lymphocytes (1.2 - 3.4 /CUMM) 1.1 L Absolute Monocytes (0.10 - 0.60 /CUMM) 1.2 H Absolute Eosinophils (0.0 - 0.7 /CUMM) 0.3 Absolute Basophils (0.0 - 0.2 /CUMM) 0 Miscellaneous Phlebotomy Draw Site LEFT RADIAL 09/09 09/08 0400 1424 Blood Gas pH (7.35 - 7.45 PH) 7.33 L pCO2 (35 - 45 TORR) 34 L pO2 (80 - 100 TORR) 103 H HCO3 (21 - 28 MEQ/L) 18 L ABG O2 Sat (Measured) (>96.0 %) 97.0 Carboxyhemoglobin (1.5 - 5.0 %) 0.3 L O2 Concentration % 70% Respiration Rate (BPM) 20 O2 Delivery Method VENT Vent Mode VC/AC Expiratory Pressure (CMH2O/P) 5 Tidal Volume (CC) 550 Chemistry Sodium (137 - 145 mmol/L) 148 H Potassium (3.5 - 5.1 mmol/L) 3.6 Chloride (98 - 107 mmol/L) 115 H Carbon Dioxide (22 - 30 mmol/L) 18 L Anion Gap (5 - 16) 15 BUN (9 - 20 mg/dL) 110 *H Creatinine (0.7 - 1.2 mg/dL) 4.0 H Estimated GFR (>60 ml/min) 15 L Glucose (65 - 99 mg/dL) 163 H Calcium (8.4 - 10.2 mg/dL) 8.2 L Phosphorus (2.5 - 4.5 mg/dL) 5.3 H Magnesium (1.6 - 2.3 mg/dL) 2.8 H Total Bilirubin (0.2 - 1.3 mg/dL) 1.8 H AST (17 - 59 U/L) 199 H ALT (21 - 72 U/L) 92 H Albumin (3.5 - 5.0 g/dL) 2.1 L Hematology CBC w Diff NO MAN DIFF REQ WBC (4.8 - 10.8 /CUMM) 11.2 H RBC (4.70 - 6.10 /CUMM) 3.86 L Hgb (14.0 - 18.0 G/DL) 10.2 L Hct (42 - 52 %) 31.1 L MCV (80.0 - 94.0 FL) 80.5 MCH (27.0 - 31.0 PG) 26.4 L MCHC (33.0 - 37.0 G/DL) 32.8 L RDW (11.5 - 14.5 %) 20.3 H Plt Count (130 - 400 /CUMM) 31 L MPV (7.4 - 10.4 FL) 9.9 Gran % (42.2 - 75.2 %) 70.8 Lymphocytes % (20.5 - 51.1 %) 12.6 L Monocytes % (1.7 - 9.3 %) 15.2 H Eosinophils % (0 - 5 %) 1.4 Basophils % (0.0 - 2.0 %) 0 Absolute Granulocytes (1.4 - 6.5 /CUMM) 7.9 H Absolute Lymphocytes (1.2 - 3.4 /CUMM) 1.4 Absolute Monocytes (0.10 - 0.60 /CUMM) 1.7 H Absolute Eosinophils (0.0 - 0.7 /CUMM) 0.2 Absolute Basophils (0.0 - 0.2 /CUMM) 0 Miscellaneous Phlebotomy Draw Site RIGHT RADIAL 09/08 09/08 1400 9305 Chemistry Sodium (137 - 145 mmol/L) 144 Potassium (3.5 - 5.1 mmol/L) 3.6 Chloride (98 - 107 mmol/L) 109 H Carbon Dioxide (22 - 30 mmol/L) 18 L Anion Gap (5 - 16) 17 H BUN (9 - 20 mg/dL) 98 H Creatinine (0.7 - 1.2 mg/dL) 3.6 H Estimated GFR (>60 ml/min) 17 L Glucose (65 - 99 mg/dL) 214 H Calcium (8.4 - 10.2 mg/dL) 8.5 Phosphorus (2.5 - 4.5 mg/dL) 5.2 H Magnesium (1.6 - 2.3 mg/dL) 2.6 H Total Bilirubin (0.2 - 1.3 mg/dL) 3.0 H AST (17 - 59 U/L) 134 H ALT (21 - 72 U/L) 81 H Albumin (3.5 - 5.0 g/dL) 2.4 L Coagulation PT (9.4 - 12.5 SEC) 14.7 H INR (0.90 - 1.17) 1.34 H APTT (25 - 37 SEC) 33 Fibrinogen Activity (200 - 393 MG/DL) 659 H Hematology CBC w Diff MAN DIFF ORDERED WBC (4.8 - 10.8 /CUMM) 13.6 H RBC (4.70 - 6.10 /CUMM) 4.34 L Hgb (14.0 - 18.0 G/DL) 11.5 L Hct (42 - 52 %) 35.0 L MCV (80.0 - 94.0 FL) 80.6 MCH (27.0 - 31.0 PG) 26.5 L MCHC (33.0 - 37.0 G/DL) 32.8 L RDW (11.5 - 14.5 %) 20.1 H Plt Count (130 - 400 /CUMM) 34 L MPV (7.4 - 10.4 FL) 9.9 Gran % (42.2 - 75.2 %) 75.6 H Lymphocytes % (20.5 - 51.1 %) 5.7 L Monocytes % (1.7 - 9.3 %) 18.5 H Eosinophils % (0 - 5 %) 0.2 Basophils % (0.0 - 2.0 %) 0 Absolute Granulocytes (1.4 - 6.5 /CUMM) 10.3 H Segmented Neutrophils (42.2 - 75.2 %) 68 Band Neutrophils (0.0 - 5.0 %) 10 H Absolute Lymphocytes (1.2 - 3.4 /CUMM) 0.8 L Lymphocytes (20.5 - 51.1 %) 12 L Monocytes (1.7 - 9.3 %) 8 Absolute Monocytes (0.10 - 0.60 /CUMM) 2.5 H Absolute Eosinophils (0.0 - 0.7 /CUMM) 0 Absolute Basophils (0.0 - 0.2 /CUMM) 0 Metamyelocytes (0.0 - 1.0 %) 2 H Nucleated RBCs (0.0 - 0.0 /100WBC) 1 H Platelet Estimate (ADEQUATE) DECREASED Normocytic RBCs VERIFIED Normochromic RBCs VERIFIED Imaging/Other Studies: Chest X-ray IMPRESSION: 1. Endotracheal tube tip 5.5 cm above the biju. 2. Enteric tube extends into the abdomen with tip not included. 3. Pacer and AICD leads unchanged. 4. Mild pulmonary edema, improved compared to prior exam. 5. No change in small bilateral pleural effusions and bibasilar atelectasis.
[2017-09-10 10:41] LABS: PT 13.6 SEC (9.4-12.5); PTT 28 SEC (25-37)
--- NOTE | 2017-09-10 12:48 | ULTRASOUND REPORT ---
EXAMINATION: US SUPERFICIAL IMAGING, EXTREMITY CLINICAL INFORMATION: Swelling, tenderness with restricted range of motion. Presumptive diagnosis of right foot abscess. COMPARISON: CT scan of the right lower extremity dated 09/07/2017. TECHNIQUE: Focused ultrasound of the dorsum of the right foot was performed. Real-time assessment by the reading radiologist was performed. FINDINGS: Corresponding to the CT scan findings, there is extensive cutaneous edema seen throughout the dorsum of the right foot, measuring up to 0.5 cm in thickness. With color Doppler imaging, no hyperemia of the thickened skin is seen. There is also prominent subcutaneous diffuse edema in the soft tissues of the entire dorsum of the right foot. In the dorsum of the hind and midfoot, in region of the fragmented navicular bone and impacted talus bone, a complex dorsal deep soft tissue fluid collection is seen with low-level internal echoes and multiple echogenic bone fragment seen. This collection appears to be extending into the intertarsal joints and measures approximately 3.2 x 1.0 x 3.7 cm in size. With color Doppler imaging, prominent hyperemia is seen in the periphery of this complex collection. IMPRESSION: 1. Complex deep soft tissue collection is seen in the dorsum of the right mid and hindfoot in region of the fragmented navicular bone and impacted talus bone demonstrated on CT scan. There appears to be extension of this collection into the intertarsal joints. Finding are nonspecific and may represent a septic joint, deep soft tissue abscess, or hematoma. 2. Extensive cutaneous and subcutaneous edema throughout the dorsum of the foot. Findings discussed with Dr. Kelby Bowens at the time of the exam.
--- NOTE | 2017-09-10 13:10 | ECHOCARDIOGRAM REPORT ---
HOUSTON RUBI Age: 61 : Gender: M 8 Exam Date: 09/09/2017 10:00 Exam Location: [facility] Ht (in): 69 Wt (lb): 253 BSA: 2.41 BP: 130 / 70 Ordering Physician: Kelby Bowens MD Referring Physician: Kelby Bowens MD Technologist: Osbaldo Chung [facility] Room Number: 103-1 Indications: INFECTIVE ENDOCARDITIS Rhythm: Sinus Technical Quality: Technically difficult study Medications Propofol Ease of Transducer Insertion Difficult Complications none Technical Difficulty Technically difficult study. FINDINGS Left Ventricle Normal size left ventricle. Left ventricular ejection fraction is estimated at 55 %. Mild apical hypokinesis. Right Ventricle Normal right ventricular size and function. Right Atrium Normal right atrial size. Left Atrium Mild left atrial dilatation. LA Appendage IA Septum Normal interatrial septum. Mitral Valve Mitral valve is thickened. There is a possible vegetation on the anterior mitral leaflet. Mild mitral regurgitation. Aortic Valve Aortic valve is mildly thickened with no definite vegetations. No aortic stenosis. Trace aortic regurgitation. Tricuspid Valve Structurally normal tricuspid valve. Trace tricuspid regurgitation. Pulmonic Valve Pulmonic valve not well visualized, grossly normal. Pericardium No pericardial effusion. Great Vessels There is mild atherosclerosis of the descending thoracic aorta. CONCLUSIONS Normal size left ventricle. Left ventricular ejection fraction is estimated at 55 %. Mild apical hypokinesis. Mild left atrial dilatation. There is a possible vegetation on the anterior mitral leaflet. Mild mitral regurgitation. Trace tricuspid regurgitation. Trace aortic regurgitation. Lenin Bowers M.D. (Electronically Signed) Final Date: 10 September 2017 13:07 MEASUREMENTS (Male / Female) Normal Values
--- NOTE | 2017-09-10 15:12 | ULTRASOUND REPORT ---
PROCEDURE: US GUIDED DRAINAGE OF FOOT ABSCESS, RIGHT CLINICAL INFORMATION: Right foot abscess. COMPARISON: Ultrasound exam performed earlier today. CONSENT: Informed consent was obtained from the patient's prior to the procedure. During this process, the procedure and potential alternatives were explained, along with the intended outcome and benefits. The risks of the procedure including the possibility of an unsuccessful procedure, as well as the risk of not doing the procedure were discussed. The was given the opportunity to ask questions regarding the procedure and appeared competent to make decisions. A signed consent form documenting this discussion was placed in the medical record. A time-out procedure was performed. ACCESS: Right foot. CONTRAST: None SEDATION: 50 mg of fentanyl and 2 mg of Ativan were given by the physicians in the ICU. MEDICATIONS: 1% lidocaine. GUIDANCE: Ultrasound COMPLICATIONS: None TECHNIQUE/FINDINGS: Preliminary ultrasound of the right foot shows what appears to be an abscess on the dorsum of the foot. The foot was prepped and draped. All elements of maximal sterile barrier technique followed including use of cap, mask, sterile gown, sterile gloves, a sterile full body drape and hand hygiene. Also followed skin preparation with 2% chlorhexidine for cutaneous antisepsis with sterile ultrasound preparation with sterile gel and probe cover. After installation of 1% lidocaine, a 5-Kinyarwanda Jimmy catheter was inserted into the collection and creamy, espinoza pus was obtained. Samples were sent for Gram stain, culture and sensitivity. A total of 15 mL was withdrawn. A repeat ultrasound after drainage shows no significant residual fluid. At the end of the procedure, the catheter was removed and a sterile dressing was placed. IMPRESSION: Successful evacuation of 15 mL of pus from the dorsum of the patient's right foot.
[2017-09-10 16:00] VITALS: BP 105/54
[2017-09-10 23:00] VITALS: BP 162/70
[2017-09-11 05:41] LABS: ABSOLUTE BASOPHIL COUNT 0 /CUMM (0.0-0.2); ABSOLUTE EOSINOPHIL COUNT 0.3 /CUMM (0.0-0.7); ABSOLUTE GRANULOCYTE CT 9.7 /CUMM (1.4-6.5); ABSOLUTE LYMPH COUNT 1.1 /CUMM (1.2-3.4); ABSOLUTE MONOCYTE COUNT 0.9 /CUMM (0.10-0.60); BASOPHIL % 0.1 % (0.0-2.0); EOSINOPHIL % 2.1 % (0-5); GRANULOCYTE % 80.6 % (42.2-75.2); HEMATOCRIT 31.1 % (42-52); MEAN CORPUSCULAR HGB 26.6 PG (27.0-31.0); MEAN CORPUSCULAR HGB CONC 32.6 G/DL (33.0-37.0); MEAN CORPUSCULAR VOLUME 81.6 FL (80.0-94.0); MEAN PLATELET VOLUME 10.8 FL (7.4-10.4); PLATELET COUNT 58 /CUMM (130-400); RBC DISTRIBUTION WIDTH 20.2 % (11.5-14.5); RED BLOOD CELL CT 3.81 /CUMM (4.70-6.10); WHITE BLOOD CELL COUNT 12.1 /CUMM (4.8-10.8)
--- NOTE | 2017-09-11 07:07 | PN- Resident CRCU ---
Subjective HPI/CRCU Issues: Sepsis Intubated day 4 (RR16, PEEP 5, FIO2 30, Group B strep bacteremia Endocarditis Elevated blood glucose levels Charcot arthropathy 24 Hour Events: Seen and examined. Still intubated, sedated but arousable by tactile stimuli. No acute overnight event reported. No significant telemetry events reported either. Objective Vital Signs & I&O Last 8 Hrs of Vitals and I&O: Intake & Output 09/11 1600 09/11 0800 09/11 0000 Intake Total 1957 1715 Output Total 1100 1600 Balance 857 115 Intake, IV 1134 1057 Intake, Oral 0 0 Intake, Tube 433 358 Feeding Intake, Tube 390 300 Irrigant Number 1 1 Bowel Movements Output, Urine 1100 1600 Laboratory Tests 09/11 0341 Chemistry Sodium (137 - 145 mmol/L) 148 H Potassium (3.5 - 5.1 mmol/L) 3.8 Chloride (98 - 107 mmol/L) 114 H Carbon Dioxide (22 - 30 mmol/L) 19 L Anion Gap (5 - 16) 16 BUN (9 - 20 mg/dL) 92 H Creatinine (0.7 - 1.2 mg/dL) 3.1 H Estimated GFR (>60 ml/min) 21 L Glucose (65 - 99 mg/dL) 292 H Calcium (8.4 - 10.2 mg/dL) 8.3 L Phosphorus (2.5 - 4.5 mg/dL) 4.7 H Magnesium (1.6 - 2.3 mg/dL) 1.9 Total Bilirubin (0.2 - 1.3 mg/dL) 1.1 AST (17 - 59 U/L) 100 H ALT (21 - 72 U/L) 79 H Albumin (3.5 - 5.0 g/dL) 2.2 L Hematology CBC w Diff NO MAN DIFF REQ WBC (4.8 - 10.8 /CUMM) 12.1 H RBC (4.70 - 6.10 /CUMM) 3.81 L Hgb (14.0 - 18.0 G/DL) 10.1 L Hct (42 - 52 %) 31.1 L MCV (80.0 - 94.0 FL) 81.6 MCH (27.0 - 31.0 PG) 26.6 L MCHC (33.0 - 37.0 G/DL) 32.6 L RDW (11.5 - 14.5 %) 20.2 H Plt Count (130 - 400 /CUMM) 58 L MPV (7.4 - 10.4 FL) 10.8 H Gran % (42.2 - 75.2 %) 80.6 H Lymphocytes % (20.5 - 51.1 %) 9.4 L Monocytes % (1.7 - 9.3 %) 7.8 Eosinophils % (0 - 5 %) 2.1 Basophils % (0.0 - 2.0 %) 0.1 Absolute Granulocytes (1.4 - 6.5 /CUMM) 9.7 H Absolute Lymphocytes (1.2 - 3.4 /CUMM) 1.1 L Absolute Monocytes (0.10 - 0.60 /CUMM) 0.9 H Absolute Eosinophils (0.0 - 0.7 /CUMM) 0.3 Absolute Basophils (0.0 - 0.2 /CUMM) 0 Microbiology Date/Time Procedure - Status Source Growth 09/10 1418 Gross Specimen Examination - RES EXTREMITIE BETA STREP GROUP B 09/10 1418 Gram Stain - RES EXTREMITIE Exam General Appearance: sedated, intubated Head: atraumatic Ears, Nose, Throat: normal pharynx Neck: normal inspection, supple Respiratory: normal breath sounds Cardiovascular: regular rate/rhythm Gastrointestinal: normal bowel sounds, soft Extremities: RIGHT SWOLLEN FOOT WITH SOME ERYTHEMA PROMINET ON THE DORSUM Current Medications: Current Medications Sig/Jasvir Start time Last Medication Dose Route Stop Time Status Admin Acetaminophen 1,000 MG .STK-MED ONE 09/10 2318 DC IV 09/10 2319 Acetaminophen 650 MG Q6P PRN 09/06 0345 AC PO Acetaminophen 1,000 MG Q6P PRN 09/06 0345 AC 09/10 IV 2333 Albuterol Sulfate 3 ML Q4P PRN 09/06 1115 DC INH Ampicillin Sodium/ 3,000 MG Q8H 09/07 1745 AC 09/11 Sulbactam Sodium IV 0943 Sodium Chloride 100 ML Aspirin Buffered 81 MG DAILY 09/06 0900 AC 09/11 PO 0802 Chlorhexidine 15 ML BID 09/11 0900 AC 09/11 Gluconate PO 0944 Dextrose/Water 1,000 ML Q10H 09/10 1145 AC 09/11 IV 0447 Diltiazem HCl 125 MG Q16H 09/11 0900 CAN Dextrose/Water 100 ML IV Diltiazem HCl 125 MG Q12H 09/09 1615 DC 09/10 Dextrose/Water 100 ML IV 09/11 0859 1952 Fentanyl Citrate 50 MCG ONCE ONE 09/10 1400 DC 09/10 IV 09/10 1401 1401 Folic Acid 1 MG DAILY 09/07 1023 AC 09/11 PO 0802 Furosemide 60 MG ONCE ONE 09/11 1630 AC IV 09/11 1631 Furosemide 60 MG ONCE ONE 09/11 0730 DC 09/11 IV 09/11 0731 0754 Hydromorphone HCl 1 MG Q4P PRN 09/10 2215 AC 09/11 IV 1019 Hydromorphone HCl 1 MG ONCE ONE 09/10 1545 DC 09/10 IV 09/10 1546 1540 Insulin Aspart 0 Q4 09/10 1400 [facility] Insulin Aspart 0 Q4H 09/10 1200 AC 09/11 SC 1136 Insulin Detemir 12 UNITS BID 09/11 0900 AC 09/11 SC 0749 Insulin Detemir 8 UNITS BID 09/10 2100 DC 09/10 CT 2054 Lorazepam 2 MG ONCE ONE 09/10 1400 DC 09/10 IV 09/10 1401 1401 Lorazepam 50 MG Q24H 09/09 0830 AC 09/11 Sodium Chloride 500 ML IV 0803 Magnesium Oxide 400 MG .STK-MED ONE 09/11 1035 DC PO 09/11 1036 Magnesium Oxide 400 MG ONCE ONE 09/11 0615 DC 09/11 PO 09/11 0616 0622 Metoprolol Tartrate 100 MG BID 09/11 0900 AC 09/11 PO 0802 Multivitamins 1 TAB DAILY 09/07 1023 AC 09/11 PO 0802 Pantoprazole Sodium 40 MG DAILY 09/09 0900 AC 09/11 IV 0801 Potassium Chloride 20 MEQ .STK-MED ONE 09/11 1035 DC PO 09/11 1036 Potassium Chloride 20 MEQ ONCE ONE 09/11 0615 DC 09/11 PO 09/11 0616 0621 Potassium Chloride 40 MEQ ONCE ONE 09/10 1515 DC 09/10 PO 09/10 1516 1542 Thiamine HCl 50 MG DAILY 09/07 1023 AC 09/11 PO 0802 Impression/Plan Impression/Problem List Impression: Impression: 65 y/o M with PMH of DM, Gout(?), OK s/p CABG on aspirin/plavix, hypertension and hyperlipidemia was brought to the ED 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 Patient is reported to have had a sudden onset dysarthria, difficulty swallowing and L nasolabial fold drooping. This neurological deficits or transit and result on the patient was in the ICU. Patient was also found to have new onset A. fib . Assessment: 1. Acute Hypoxemic Respiratory Failure now intubated due to increased work of breathing and tachypnea. 2. Group B strep bacteremia 3. Endocarditis 3. Atrial Fibrilliation with RVR - now in NSR 4.. DEMETRIO 5. Evolving lacunar infarct as evident by today's CT scan . 6 Elevated Troponins. Type II OK. Now resolved. 7. Elevated ESR 8. Thrombocytopenia most likely secondary to sepsis, there is concern of DIC. Plan: * Continue monitoring in ICU for now. * continue on mechanical ventilation with assist control with VT is of 550, PEEP of 5, respiratory rate of 20, current FiO2 is decreased now it around 35%. We' ll attempt a liberation trial tomorrow. * Currently on IV Unasyn (day 6). * Will stop Cardizem drip and start metoprolol 100 mm twice a day per cardiology recommendations * Continue OG tube for meds administration * Continue to hold off Atorvastatin 80mg given the patient has increasing transaminits * DEMETRIO stable. * Increase free water in the context of hypernatremia * IV lasix 60mg twice a day to encourage negative fluid balance * Monitor thrombocytopenia. S/p 2 units. Improving. * Will start a recent APIXABAN once platelets above 80,000 * Will await further podiatry recommendation, given that the patient is growing group B strep from the foot aspiration. This is most likely the source of patient's bacteremia and endocarditis will therefore require intervention. * Diet: We'll continue with the current tube feeds, in the setting of increased blood glucose levels will increase Levemir to 12 twice a day which was started yesterday. If sugars continue to be persistent will then switched to Glucerna. * DVT Prophylaxis: ALPS only. * Code: Full Code Problem List: 1. Endocarditis 2. Bacteremia 3. New onset a-fib 4. DEMETRIO (acute kidney injury) 5. CVA (cerebral vascular accident) 6. Coagulopathy Pain Ratin Tomorrow's Labs & Rationales: ICU BUNDLE CBC Plan DVT/Prophylaxis: mechanical
--- NOTE | 2017-09-11 07:23 | PN- Hematology ---
Subjective Subjective: He remains intubated. He is currently on lorazepam. He did have fever overnight. Review of Systems: Unable to be obtained due to intubation and sedation Objective Vital Signs and I&Os Vital Signs Date Time Temp Pulse Resp B/P B/P Pulse O2 O2 Flow FiO2 Mean Ox Delivery Rate 09/11 0559 30 09/11 0400 94 Ventilator 30% 09/11 0316 30 09/11 0102 98.5 09/11 0046 30 09/11 0036 100.3 09/11 0000 92 Ventilator 30% 09/10 2333 100.7 09/10 2300 100.7 84 30 162/70 92 Ventilator 30% 09/10 2000 96 Ventilator 30% 09/10 1930 30 09/10 1615 35 / 1600 97.3 68 20 105/54 97 Ventilator 35% 09/10 1600 97 Ventilator 35% 09/10 1412 35 09/10 1200 97 Ventilator 35% 09/10 1143 35 09/10 0819 35 09/10 0800 96 Ventilator 40% 09/10 0800 97.1 72 28 140/62 96 Ventilator 40% Intake & Output 09/11 0800 / 0000 /18 1600 /18 0800 09/10 0000 09/09 1600 Intake Total 1957 1715 1643 075 639 5516 Output Total 1100 1600 2300 1750 1200 1500 Balance 857 115 -657 -804 -459 4 Intake, Blood 243 Product Intake, IV 1134 1057 1100 975 036 4557 Intake, Oral 0 0 Intake, Tube 433 358 243 134 30 Feeding Intake, Tube 390 300 300 290 100 Irrigant Number 1 1 1 1 1 1 Bowel Movements Output, Urine 1100 1600 2300 1750 1200 1500 Patient 114.787 kg Weight Physical Exam: General Appearance: no apparent distress, obese,sedated Head: normal appearance Ears, Nose, Throat: ET tube in place, dry blood on lips Respiratory: chest non-tender, no respiratory distress, rhonchi, ventilator noise Cardiovascular: tachycardia, irregularly irregular Gastrointestinal: non-tender, no organomegaly, abnormal bowel sounds (hypoactive ), distention Extremities: Bilateral lower extremity 2+ edema up to knee, R>L, right foot with dression in place. Neurologic/Psych: sedated Skin: warm/dry Current Medications: Current Medications Sig/Jasvir Start time Last Medication Dose Route Stop Time Status Admin Acetaminophen 650 MG Q6P PRN 09/06 0345 PO Acetaminophen 1,000 MG Q6P PRN 09/06 0345 AC 09/10 IV 2333 Albuterol Sulfate 3 ML Q4P PRN 09/06 1115 DC INH Ampicillin Sodium/ 3,000 MG Q8H 09/07 1745 09/11 Sulbactam Sodium IV 0110 Sodium Chloride 100 ML Aspirin Buffered 81 MG DAILY 09/06 0900 AC 09/10 PO 0834 Atorvastatin Calcium 80 MG 1700 09/08 1700 PR 09/09 PO 1644 Dextrose/Water 1,000 ML Q10H 09/10 1145 09/11 IV 0447 Dextrose/Water 1,000 ML Q8H 09/10 1045 DC 09/10 IV 1040 Dextrose/Water 1,000 ML Q13H 09/10 0545 PR 09/10 IV 0549 Diltiazem HCl 125 MG Q16H 09/11 0900 Dextrose/Water 100 ML IV Diltiazem HCl 125 MG Q12H 09/09 1615 09/10 Dextrose/Water 100 ML IV 09/11 0859 1952 Fentanyl Citrate 50 MCG ONCE ONE 09/10 1400 DC 09/10 IV 09/10 1401 1401 Folic Acid 1 MG DAILY 09/07 1023 09/10 PO 0834 Furosemide 40 MG .STK-MED ONE 09/10 0823 DC IV 09/10 0824 Furosemide 60 MG ONCE ONE 09/10 0815 PR 09/10 IV 09/10 0816 0830 Hydromorphone HCl 1 MG Q4P PRN 09/10 2215 09/11 IV 0542 Hydromorphone HCl 1 MG ONCE ONE 09/10 1545 DC 09/10 IV 09/10 1546 1540 Insulin Aspart 0 Q4 09/10 1400 PR SC Insulin Aspart 0 Q4H 09/10 1200 09/11 SC 0349 Insulin Aspart 0 Q6 09/09 2359 DC 09/10 SC 0511 Insulin Detemir 8 UNITS BID 09/10 2100 09/10 SC 2054 Lorazepam 2 MG ONCE ONE 09/10 1400 DC 09/10 IV 09/10 1401 1401 Lorazepam 50 MG Q24H 09/09 0830 09/10 Sodium Chloride 500 ML IV 0830 Magnesium Oxide 400 MG ONCE ONE 09/11 0615 DC 09/11 PO 09/11 0616 0622 Multivitamins 1 TAB DAILY 09/07 1023 AC 09/10 PO 0834 Pantoprazole Sodium 40 MG DAILY 09/09 0900 AC 09/10 IV 0832 Potassium Chloride 20 MEQ ONCE ONE 09/11 0515 DC 09/11 PO 09/11 0616 0621 Potassium Chloride 40 MEQ ONCE ONE 09/10 1515 DC 09/10 PO 09/10 1516 1542 Potassium Chloride 20 MEQ ONCE ONE 09/10 1045 DC 09/10 PO 09/10 1046 1039 Thiamine HCl 50 MG DAILY 09/07 1023 AC 09/10 PO 0834 Results Last 24 Hours of Lab Results: Laboratory Tests 09/11 09/10 09/10 0341 1213 0857 Chemistry Sodium (137 - 145 mmol/L) 148 H 148 H Potassium (3.5 - 5.1 mmol/L) 3.8 3.4 L Chloride (98 - 107 mmol/L) 114 H 114 H Carbon Dioxide (22 - 30 mmol/L) 19 L 19 L Anion Gap (5 - 16) 16 15 BUN (9 - 20 mg/dL) 92 H 92 H Creatinine (0.7 - 1.2 mg/dL) 3.1 H 3.3 H Estimated GFR (>60 ml/min) 21 L 19 L Glucose (65 - 99 mg/dL) 292 H 292 H Calcium (8.4 - 10.2 mg/dL) 8.3 L 8.3 L Phosphorus (2.5 - 4.5 mg/dL) 4.7 H 4.6 H Magnesium (1.6 - 2.3 mg/dL) 1.9 2.1 Total Bilirubin (0.2 - 1.3 mg/dL) 1.1 1.4 H AST (17 - 59 U/L) 100 H 152 H ALT (21 - 72 U/L) 79 H 95 H Albumin (3.5 - 5.0 g/dL) 2.2 L 2.3 L Coagulation PT (9.4 - 12.5 SEC) 13.6 H INR (0.90 - 1.17) 1.24 H APTT (25 - 37 SEC) 28 Fibrinogen Activity (200 - 393 MG/DL) 894 H D-Dimer High Sensitivty (0 - 243 ng/ml) 3590 H Hematology CBC w Diff NO MAN DIFF REQ WBC (4.8 - 10.8 /CUMM) 12.1 H RBC (4.70 - 6.10 /CUMM) 3.81 L Hgb (14.0 - 18.0 G/DL) 10.1 L Hct (42 - 52 %) 31.1 L MCV (80.0 - 94.0 FL) 81.6 MCH (27.0 - 31.0 PG) 26.6 L MCHC (33.0 - 37.0 G/DL) 32.6 L RDW (11.5 - 14.5 %) 20.2 H Plt Count (130 - 400 /CUMM) 58 L MPV (7.4 - 10.4 FL) 10.8 H Gran % (42.2 - 75.2 %) 80.6 H Lymphocytes % (20.5 - 51.1 %) 9.4 L Monocytes % (1.7 - 9.3 %) 7.8 Eosinophils % (0 - 5 %) 2.1 Basophils % (0.0 - 2.0 %) 0.1 Absolute Granulocytes (1.4 - 6.5 /CUMM) 9.7 H Absolute Lymphocytes (1.2 - 3.4 /CUMM) 1.1 L Absolute Monocytes (0.10 - 0.60 /CUMM) 0.9 H Absolute Eosinophils (0.0 - 0.7 /CUMM) 0.3 Absolute Basophils (0.0 - 0.2 /CUMM) 0 Recent Imaging Studies: JESUS 09/07/2017: Normal size left ventricle. Left ventricular ejection fraction is estimated at 55 %. Mild apical hypokinesis. Mild left atrial dilatation. There is a possible vegetation on the anterior mitral leaflet. Mild mitral regurgitation. Trace tricuspid regurgitation. Trace aortic regurgitation. Assessment/Plan Hematology Assessment/Recommendations: Mr. Rooney is a 61-year-old man with DM, HTN, CAD s/p ND, CABG, AICD/pacemaker, prostate cancer s/p TURP, cirrhosis, and recurrent cellulitis of the left thigh s/p right great toe debridement who presented to the hospital with slurred speech and left facial drop for a few days. He was noted to have TIA with CT head demonstrating subtle low-attenuation noted in the junction of the posterior limb and internal capsule and right hippocampal junction. 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 Blood cultures grew beta strep group B. He is on Unasyn. ID is following. Thrombocytopenia is stable. DIC panel is normal. Thrombocytopenia is likely related to sepsis and liver disease. Endocarditis may also cause some shearing effect. He may be monitored for now. Renal function is improved a little today. Free light chains are normal. SPEP pending. Thrombocytopenia: -transfusion platelet if: -<10,000 -<20,000 with fever -<50,000 with bleeding and ? procedures Renal injury: -follow up with renal recommendations -monitor BMP -follow up SPEP Beta Strep Group B bacteremia: -ID is following -antibiotic as per ID/klarissa Acute respiratory failure: -management as per primary/ICU Please call [phone] with any questions or concerns. Problem List: 1. Thrombocytopenia 2. Bacteremia 3. DEMETRIO (acute kidney injury) 4. Coagulopathy
--- NOTE | 2017-09-11 07:29 | PN- Cardiology ---
See Addendum Subjective Subjective: Patient remains intubated, can open eyes on verbal commands. He was agitated last night, on lorazepam drip Review of Systems: ROS:non obtainable (on ventilator) Objective Vital Signs and I&Os Vital Signs Date Time Temp Pulse Resp B/P B/P Pulse O2 O2 Flow FiO2 Mean Ox Delivery Rate 09/11 0559 30 09/11 0400 94 Ventilator 30% 09/11 0316 30 09/11 0102 98.5 09/11 0046 30 09/11 0036 100.3 09/11 0000 92 Ventilator 30% 09/10 2333 100.7 09/10 2300 100.7 84 30 162/70 92 Ventilator 30% 09/10 2000 96 Ventilator 30% 09/10 1930 30 09/10 1615 35 09/10 1600 97.3 68 20 105/54 97 Ventilator 35% 09/10 1600 97 Ventilator 35% 09/10 1412 35 09/10 1200 97 Ventilator 35% 09/10 1143 35 09/10 0819 35 09/10 0800 96 Ventilator 40% 09/10 0800 97.1 72 28 140/62 96 Ventilator 40% Intake & Output 09/11 0800 09/11 0000 09/10 1600 18 0800 09/10 0000 09/09 1600 Intake Total 1957 1715 1643 890 039 4712 Output Total 1100 1600 2300 1750 1200 1500 Balance 857 115 -657 -804 -459 4 Intake, Blood 243 Product Intake, IV 1134 1057 1100 158 732 8743 Intake, Oral 0 0 Intake, Tube 433 358 243 134 30 Feeding Intake, Tube 390 300 300 290 100 Irrigant Number 1 1 1 1 1 1 Bowel Movements Output, Urine 1100 1600 2300 1750 1200 1500 Patient 253 lb Weight Physical Exam: no acute distress on ventilator HEENT-PERRLA Neck-JVP unable to assess,no bruits Lungs-clear anteriorly Heart-S1S1 regular, 1/6 LELAND Abdomen-soft, not distended, BS+, no organomegaly Ext-1+ bilateral edema, no cyanosis neuro-intubated, on lorazepam-grossly non focal Vascular-good distal perfusion, 1+ pulses Current Medications: Current Medications Sig/Jasvir Start time Last Medication Dose Route Stop Time Status Admin Acetaminophen 650 MG Q6P PRN 09/06 0345 AC PO Acetaminophen 1,000 MG Q6P PRN 09/06 0345 AC 09/10 IV 2333 Albuterol Sulfate 3 ML Q4P PRN 09/06 1115 DC INH Ampicillin Sodium/ 3,000 MG Q8H 09/07 1745 09/11 Sulbactam Sodium IV 0110 Sodium Chloride 100 ML Aspirin Buffered 81 MG DAILY 09/06 0900 AC 09/10 PO 0834 Atorvastatin Calcium 80 MG 1700 09/08 1700 DC 09/09 PO 1644 Dextrose/Water 1,000 ML Q10H 09/10 1145 09/11 IV 0447 Dextrose/Water 1,000 ML Q8H 09/10 1045 DC 09/10 IV 1040 Dextrose/Water 1,000 ML Q13H 09/10 0545 DC 09/10 IV 0549 Diltiazem HCl 125 MG Q16H 09/11 0900 Dextrose/Water 100 ML IV Diltiazem HCl 125 MG Q12H 09/09 1615 09/10 Dextrose/Water 100 ML IV 09/11 0859 1952 Fentanyl Citrate 50 MCG ONCE ONE 09/10 1400 DC 09/10 IV 09/10 1401 1401 Folic Acid 1 MG DAILY 09/07 1023 09/10 PO 0834 Furosemide 40 MG .STK-MED ONE 09/10 0823 DC IV 09/10 0824 Furosemide 60 MG ONCE ONE 09/10 0815 WI 09/10 IV 09/10 0816 0830 Hydromorphone HCl 1 MG Q4P PRN 09/10 2215 09/11 IV 0542 Hydromorphone HCl 1 MG ONCE ONE 09/10 1545 DC 09/10 IV 09/10 1546 1540 Insulin Aspart 0 Q4 09/10 1400 [facility] Insulin Aspart 0 Q4H 09/10 1200 09/11 [place] 0349 Insulin Aspart 0 Q6 09/09 2359 WI 09/10 SC 0511 Insulin Detemir 8 UNITS BID 09/10 2100 AC 09/10 SC 2054 Lorazepam 2 MG ONCE ONE 09/10 1400 DC 09/10 IV 09/10 1401 1401 Lorazepam 50 MG Q24H 09/09 0830 AC 09/10 Sodium Chloride 500 ML IV 0830 Magnesium Oxide 400 MG ONCE ONE 09/11 0615 DC 09/11 PO 09/11 0616 0622 Multivitamins 1 TAB DAILY 07/15 1023 09/10 PO 0834 Pantoprazole Sodium 40 MG DAILY 09/09 0900 AC 09/10 IV 0832 Potassium Chloride 20 MEQ ONCE ONE 09/11 0615 DC 09/11 PO 09/11 0616 0621 Potassium Chloride 40 MEQ ONCE ONE 09/10 1515 DC 09/10 PO 09/10 1516 1542 Potassium Chloride 20 MEQ ONCE ONE 09/10 1045 DC 09/10 PO 09/10 1046 1039 Thiamine HCl 50 MG DAILY 09/07 1023 09/10 PO 0834 Results Last 48 Hrs of Labs/Mics: Laboratory Tests 09/11/17 0341: Anion Gap 16, Estimated GFR 21 L, Glucose 292 H, Calcium 8.3 L, Phosphorus 4.7 H, Magnesium 1.9, Total Bilirubin 1.1, AST 100 H, ALT 79 H, Albumin 2.2 L, CBC w Diff NO MAN DIFF REQ, RBC 3.81 L, MCV 81.6, MCH 26.6 L, MCHC 32.6 L, RDW 20.2 H, MPV 10.8 H, Gran % 80.6 H, Lymphocytes % 9.4 L, Monocytes % 7.8, Eosinophils % 2.1, Basophils % 0.1, Absolute Granulocytes 9.7 H, Absolute Lymphocytes 1.1 L, Absolute Monocytes 0.9 H, Absolute Eosinophils 0.3, Absolute Basophils 0 09/10/17 1213: Anion Gap 15, Estimated GFR 19 L, Glucose 292 H, Calcium 8.3 L, Phosphorus 4.6 H, Magnesium 2.1, Total Bilirubin 1.4 H, AST 152 H, ALT 95 H, Albumin 2.3 L 09/10/17 0857: PT 13.6 H, INR 1.24 H, APTT 28, Fibrinogen Activity 894 H, D-Dimer High Sensitivty 3590 H 09/10/17 0415: Anion Gap 16, Estimated GFR 18 L, Glucose 236 H, Calcium 8.6, Phosphorus 4.9 H, Magnesium 2.4 H, Total Bilirubin 1.6 H, AST 200 H, ALT 106 H, Albumin 2.5 L, CBC w Diff NO MAN DIFF REQ, RBC 4.36 L, MCV 81.2, MCH 26.2 L, MCHC 32.2 L , RDW 20.4 H, MPV 9.8, Gran % 78.6 H, Lymphocytes % 9.0 L, Monocytes % 10.0 H, Eosinophils % 2.1, Basophils % 0.3, Absolute Granulocytes 9.5 H, Absolute Lymphocytes 1.1 L, Absolute Monocytes 1.2 H, Absolute Eosinophils 0.3, Absolute Basophils 0 09/09/17 0825: pH 7.39, pCO2 28 L, pO2 74 L, HCO3 17 L, ABG O2 Sat (Measured) 93.0 L, Carboxyhemoglobin 0.7 L, O2 Concentration % 45%, Respiration Rate 20, O2 Delivery Method VENT, Vent Mode VC-AC, Expiratory Pressure 5, Tidal Volume 550, Pressure Support 0, Phlebotomy Draw Site LEFT RADIAL Recent Imaging Studies: CXR-improved pulmonary edema Assessment/Plan Assessment/Plan 61 year old male with known CAD, PCI in 11/2016, ICD for sustained VT, s/p CABG in 04/2017, HTN, HLP, DM, SAS admitted with respiratory failure, septic shock ( Group B strep in blood), renal and liver failure, CVA, AF with RVR. Source of infection unclear. F/U blood cultures so far negative. JESUS reviewed in detail, possible small vegetation on mitral valve with only mild MR, trace AI (Technically difficult study). Platelet count improved, renal function improved. Good response to lasix yesterday. CXR showing improved pulmonary edema Sodium slightly improved LFT's remain elevated but improving He remains in sinus on iv cardizem Low grade fever overnight Plan; Patient will need full treatment for [place] valve endocarditis repeat blood cultures today change iv cardizem to metoprolol 100mg NGT bid if he develops recurrent fibrillation/flutter, start iv amiodarone (despite elevated LFT's) continue Aspirin hold atorvastatin until liver function improves Eliquis 2.5 mg ngt bid when platelet count above 80 000 (he should get another CT head prior starting anticoagulation to make sure there is no hemorrhagic conversion of the subacute stroke) Lasix 60 mg iv bid today await cultures from left foot aspirate Patient has MRI conditional defibrillator ([employer] EVERA). I will find out if his leads are compatible as well. In that case, he can have foot MRI. Dr. Bowers will be covering me tomorrow and next week. 40 min spent with the patient and coordinating care including review of medical records. Continue telemetry? Yes
--- NOTE | 2017-09-11 07:48 | PN- CRCU ---
Subjective HPI/Critical Care Issues: The patient remains intubated and sedated. Yesterday, the patient underwent drainage of his right lower extremity abscess, noting 15 mL of pus from the dorsum of the patient's right foot was evacuated. Stools are loose and the patient is reported to have a mild skin rash over his buttocks. A rectal tube is being placed. The patient was agitated after his foot aspiration was given Dilaudid for pain associated with his foot. He remains afebrile and hemodynamically stable. The patient is not able to offer complaints. Objective Current Medications: Current Medications Sig/Jasvir Start time Last Medication Dose Route Stop Time Status Admin Acetaminophen 1,000 MG .STK-MED ONE 09/10 2318 DC IV 09/10 2319 Acetaminophen 650 MG Q6P PRN 09/06 0345 AC PO Acetaminophen 1,000 MG Q6P PRN 09/06 0345 09/10 IV 2333 Albuterol Sulfate 3 ML Q4P PRN 09/06 1115 DC INH Ampicillin Sodium/ 3,000 MG Q8H 09/07 1745 09/11 Sulbactam Sodium IV 0110 Sodium Chloride 100 ML Aspirin Buffered 81 MG DAILY 09/06 0900 09/10 PO 0834 Atorvastatin Calcium 80 MG 1700 / 1700 DC 09/09 PO 1644 Dextrose/Water 1,000 ML Q10H 09/10 1145 09/11 IV 0447 Dextrose/Water 1,000 ML Q8H 09/10 1045 DC 09/10 IV 1040 Dextrose/Water 1,000 ML Q13H 09/10 0545 DC 09/10 IV 0549 Diltiazem HCl 125 MG Q16H 09/11 0900 AC Dextrose/Water 100 ML IV Diltiazem HCl 125 MG Q12H 09/09 1615 09/10 Dextrose/Water 100 ML IV 09/11 0859 1952 Fentanyl Citrate 50 MCG ONCE ONE 09/10 1400 DC 09/10 IV 09/10 1401 1401 Folic Acid 1 MG DAILY 09/07 1023 09/10 PO 0834 Furosemide 40 MG .STK-MED ONE 09/10 0823 DC IV 09/10 0824 Furosemide 60 MG ONCE ONE 09/10 0815 DC 09/10 IV 09/10 0816 0830 Hydromorphone HCl 1 MG Q4P PRN 09/10 2215 09/11 IV 0542 Hydromorphone HCl 1 MG ONCE ONE 09/10 1545 DC 09/10 IV 09/10 1546 1540 Insulin Aspart 0 Q4 09/10 1400 DC SC Insulin Aspart 0 Q4H 09/10 1200 AC 09/11 SC 0349 Insulin Aspart 0 Q6 09/09 2359 DC 09/10 SC 0511 Insulin Detemir 12 UNITS BID 09/11 0900 UNVr SC Insulin Detemir 8 UNITS BID 09/10 2100 DC 09/10 SC 2054 Lorazepam 2 MG ONCE ONE 09/10 1400 DC 09/10 IV 09/10 1401 1401 Lorazepam 50 MG Q24H 09/09 0830 AC 09/10 Sodium Chloride 500 ML IV 0830 Magnesium Oxide 400 MG ONCE ONE 09/11 0615 DC 09/11 PO 09/11 0616 0622 Multivitamins 1 TAB DAILY 09/07 1023 AC 09/10 PO 0834 Pantoprazole Sodium 40 MG DAILY 09/09 0900 AC 09/10 IV 0832 Potassium Chloride 20 MEQ ONCE ONE 09/11 0615 DC 09/11 PO 09/11 0616 0621 Potassium Chloride 40 MEQ ONCE ONE 09/10 1515 DC 09/10 PO 09/10 1516 1542 Potassium Chloride 20 MEQ ONCE ONE 09/10 1045 DC 09/10 PO 09/10 1046 1039 Thiamine HCl 50 MG DAILY 09/07 1023 AC 09/10 PO 0834 Vital Signs & I&O Last 24 Hrs of Vitals and I&O: Vital Signs Date Time Temp Pulse Resp B/P B/P Pulse O2 O2 Flow FiO2 Mean Ox Delivery Rate 09/11 0559 30 09/11 0400 94 Ventilator 30% 09/11 0316 30 09/11 0102 98.5 09/11 0046 30 09/11 0036 100.3 09/11 0000 92 Ventilator 30% 09/10 2333 100.7 09/10 2300 100.7 84 30 162/70 92 Ventilator 30% 09/10 2000 96 Ventilator 30% 09/10 1930 30 09/10 1615 35 09/10 1600 97.3 68 20 105/54 97 Ventilator 35% 09/10 1600 97 Ventilator 35% 09/10 1412 35 09/10 1200 97 Ventilator 35% 09/10 1143 35 09/10 0819 35 09/10 0800 96 Ventilator 40% 09/10 0800 97.1 72 28 140/62 96 Ventilator 40% Intake & Output 09/11 0800 09/11 0000 09/10 1600 Intake Total 1957 1715 1643 Output Total 1100 1600 2300 Balance 857 115 -657 Intake, IV 1134 1057 1100 Intake, Oral 0 0 Intake, Tube 433 358 243 Feeding Intake, Tube 390 300 300 Irrigant Number 1 1 1 Bowel Movements Output, Urine 1100 1600 2300 Physical Exam General Appearance: Sedated and intubated, no distress Head: atraumatic, normal appearance Eyes: Bilateral: normal appearance, PERRL Neck: normal inspection, supple Respiratory: Bilateral anterior rhonchi heard Cardiovascular: S1 and S2 heard Gastrointestinal: normal bowel sounds, soft, non-tender Extremities: Right foot swelling over the dorsum, no erythema Skin: intact, normal color Results Last 24 Hrs of Lab Results: Laboratory Tests 09/11/17 0341: Anion Gap 16, Estimated GFR 21 L, Glucose 292 H, Calcium 8.3 L, Phosphorus 4.7 H, Magnesium 1.9, Total Bilirubin 1.1, AST 100 H, ALT 79 H, Albumin 2.2 L, CBC w Diff NO MAN DIFF REQ, RBC 3.81 L, MCV 81.6, MCH 26.6 L, MCHC 32.6 L, RDW 20.2 H, MPV 10.8 H, Gran % 80.6 H, Lymphocytes % 9.4 L, Monocytes % 7.8, Eosinophils % 2.1, Basophils % 0.1, Absolute Granulocytes 9.7 H, Absolute Lymphocytes 1.1 L, Absolute Monocytes 0.9 H, Absolute Eosinophils 0.3, Absolute Basophils 0 09/10/17 1213: Anion Gap 15, Estimated GFR 19 L, Glucose 292 H, Calcium 8.3 L, Phosphorus 4.6 H, Magnesium 2.1, Total Bilirubin 1.4 H, AST 152 H, ALT 95 H, Albumin 2.3 L 09/10/17 0857: PT 13.6 H, INR 1.24 H, APTT 28, Fibrinogen Activity 894 H, D-Dimer High Sensitivty 3590 H Impression/Plan Impression/Plan Impression/Plan: 1. Hypernatremia, on free water replacement. 2. Acute on chronic renal failure, creatinine trending down slowly. 3. Improving thrombocytopenia, likely secondary to sepsis. 4. Acute hypoxemic respiratory failure in the setting of fluid overload versus aspiration pneumonia. 5. [place] valve endocarditis, will need full treatment as JESUS (09/09/17) does appear to be positive per cardiology. 6. Atrial fibrillation, now in sinus rhythm. 7. Lacunar stroke. 8. Positive troponins, suggestive of demand ischemia. 9. Cirrhosis, LFTs continue to improve. 10. Right lower extremity fractures and abscess formation. 11. Encephalopathy. 12. Malnutrition. 13. Evacuation of abscess, from the dorsum of the right foot (09/10/17). Recommendations: * Replete K+ to 4.0. * Increase free water flushes to 300 mL every 4 hours. * Continue tube feeds at goal. Will change management specialist to Glucerna if the patient's blood sugars remain elevated. * Will continue to adjust insulinLevemir and sliding scale insulin. Will consult endocrinology if blood sugars remain uncontrolled over the next 24 hours. * Check stool for C. difficile. * Stop D5W due to hyperglycemia? Will discuss fluid management with nephrology. * Follow cardiology recommendations for diuresis. * Will also begin transition from IV medication to meds through OG tube. * Cardizem drip to be stopped, and changed over to metoprolol. * Eliquis to be started when platelet count is above 80,000, and negative head CT to ensure no transition to hemorrhagic stroke. * Lasix 60 mg IV twice daily. * Follow up all cultures. * Continue IV Unasyn, will continue to follow ID recommendations. * Continue Ativan drip, decrease for SAS of 4. * Continue with daily sedation vacations. * We will begin weaning trials however the patient needs to be awake and alert for consideration of extubation. Diuresis will help to improve his respiratory status. * Vent bundle/DVT and GI prophylaxis at all times. * The patient remains critically ill. I discussed the plan of care with the house staff and asked them to contact me if the patient's condition changes.
[2017-09-11 08:00] VITALS: BP 144/66
--- NOTE | 2017-09-11 09:05 | RADIOLOGY REPORT ---
EXAMINATION: XR PORTABLE CHEST CLINICAL INFORMATION: Intubated patient. COMPARISON: Portable chest x-ray performed on 09/10/2017. TECHNIQUE: Portable frontal view of the chest was obtained. FINDINGS: Patient is status post median sternotomy and coronary artery bypass surgery. An endotracheal tube is again seen with its tip approximately 5.2 cm above the level of the biju. The study is underpenetrated, but the patient's enteric tube appears to remain in place. There is a left pectoral pacemaker in place with intact electrodes. The lung volumes are reduced bilaterally. There is suggestion of mild progression of the patient's vascular congestive changes and a possible developing right pleural effusion. IMPRESSION: Suggestion of mild worsening of the patient's vascular congestive changes.
--- NOTE | 2017-09-11 09:35 | PN- Infect Dx ---
Subjective Subjective: T-max 100.7. He remains sedated and is unable to provide any history Objective Last 24 Hrs of Vital Signs/I&O Vital Signs Date Time Temp Pulse Resp B/P B/P Pulse O2 O2 Flow FiO2 Mean Ox Delivery Rate 09/11 0851 30 09/11 0802 88 151/68 09/11 0559 30 09/11 0400 94 Ventilator 30% 09/11 0316 30 09/11 0102 98.5 09/11 0046 30 09/11 0036 100.3 09/11 0000 92 Ventilator 30% 09/10 2333 100.7 09/10 2300 100.7 84 30 162/70 92 Ventilator 30% 09/10 2000 96 Ventilator 30% 09/10 1930 30 09/10 1615 35 09/10 1600 97.3 68 20 105/54 97 Ventilator 35% 09/10 1600 97 Ventilator 35% 09/10 1412 35 09/10 1200 97 Ventilator 35% 09/10 1143 35 Intake & Output 09/11 1600 09/11 0800 09/11 0000 Intake Total 1957 1715 Output Total 1100 1600 Balance 857 115 Intake, IV 1134 1057 Intake, Oral 0 0 Intake, Tube 433 358 Feeding Intake, Tube 390 300 Irrigant Number 1 1 Bowel Movements Output, Urine 1100 1600 Physical Exam Other Physical Findings: He is sedated, minimally responsive, on the ventilator Lungs are clear Heart regular rhythm with no murmur appreciated Abdomen is obese, soft, nontender with positive bowel sounds Extremities swelling, erythema and tenderness over the dorsum of the right foot persists Barber catheter remains in place Results Last 24 Hours of Lab Results: Laboratory Tests 09/11 09/10 0341 1213 Chemistry Sodium (137 - 145 mmol/L) 148 H 148 H Potassium (3.5 - 5.1 mmol/L) 3.8 3.4 L Chloride (98 - 107 mmol/L) 114 H 114 H Carbon Dioxide (22 - 30 mmol/L) 19 L 19 L Anion Gap (5 - 16) 16 15 BUN (9 - 20 mg/dL) 92 H 92 H Creatinine (0.7 - 1.2 mg/dL) 3.1 H 3.3 H Estimated GFR (>60 ml/min) 21 L 19 L Glucose (65 - 99 mg/dL) 292 H 292 H Calcium (8.4 - 10.2 mg/dL) 8.3 L 8.3 L Phosphorus (2.5 - 4.5 mg/dL) 4.7 H 4.6 H Magnesium (1.6 - 2.3 mg/dL) 1.9 2.1 Total Bilirubin (0.2 - 1.3 mg/dL) 1.1 1.4 H AST (17 - 59 U/L) 100 H 152 H ALT (21 - 72 U/L) 79 H 95 H Albumin (3.5 - 5.0 g/dL) 2.2 L 2.3 L Hematology CBC w Diff NO MAN DIFF REQ WBC (4.8 - 10.8 /CUMM) 12.1 H RBC (4.70 - 6.10 /CUMM) 3.81 L Hgb (14.0 - 18.0 G/DL) 10.1 L Hct (42 - 52 %) 31.1 L MCV (80.0 - 94.0 FL) 81.6 MCH (27.0 - 31.0 PG) 26.6 L MCHC (33.0 - 37.0 G/DL) 32.6 L RDW (11.5 - 14.5 %) 20.2 H Plt Count (130 - 400 /CUMM) 58 L MPV (7.4 - 10.4 FL) 10.8 H Gran % (42.2 - 75.2 %) 80.6 H Lymphocytes % (20.5 - 51.1 %) 9.4 L Monocytes % (1.7 - 9.3 %) 7.8 Eosinophils % (0 - 5 %) 2.1 Basophils % (0.0 - 2.0 %) 0.1 Absolute Granulocytes (1.4 - 6.5 /CUMM) 9.7 H Absolute Lymphocytes (1.2 - 3.4 /CUMM) 1.1 L Absolute Monocytes (0.10 - 0.60 /CUMM) 0.9 H Absolute Eosinophils (0.0 - 0.7 /CUMM) 0.3 Absolute Basophils (0.0 - 0.2 /CUMM) 0 Last 24 Hours of Shady Results: Right foot aspiration September 10 positive for beta hemolytic strep Blood cultures 2 September 07 negative Recent Imaging Studies: Chest x-ray September 11 reveals increased markings bilaterally Assessment/Plan ID Impression: Stable, with gradual improvement overall, with further decrease in his oxygen requirements, continued improvement in his renal function, decreasing liver enzymes and increasing platelets. He did have low-grade fevers overnight, with his white blood cell count remaining mildly elevated, on Unasyn, Day 5 of treatment for Group B strep sepsis, with the JESUS apparently reinterpreted, with a small vegetation now suspected on the mitral valve. He underwent aspiration of 15 cc of "espinoza pus" from his right foot yesterday, which is growing beta hemolytic strep, confirming that the foot is the source of his sepsis, and he will likely require formal I&D when his condition stabilizes. He may have underlying osteomyelitis and further evaluation for this will also be necessary. His hospital course has also been complicated by infarcts to the brain, felt to be lacunar, but possibly embolic given the reinterpretation of his JESUS. Suggestion: 1. Podiatry follow-up regarding I&D of his right foot 2. Consider Cardiothoracic surgery evaluation in view of the JESUS findings 3. We will need to establish longer term IV access (for example Pro-Line) at some point 4. Continue Unasyn Kaity Cope MD is covering until September 15
--- NOTE | 2017-09-11 12:43 | PN- Nephrology ---
Assessment/Plan Nephrology Assessment: DEMETRIO - Likely 2/2 ischemic ATN in the setting of A fib with RVR and renal hypoperfusion, contrast on 09/05, and additional hypotensive episode. Although much less likely, could be infection related GN for which complements should be followed up (treatment of which is supportive). Renal function improving even with diuresis. No clear dialysis need at this time. Proteinuria - discrepancy between UA and Uprot/Cr raises suspicion for paraprotein for which he should be evaluated. Albumin level is low and proteinuria is nephrotic range. Paraprotein work-up sent. Should note as above that infection related GN is also on the differential. Group B Strep Bacteremia - foot source. Possible endocarditis. Being followed by ID. Awaiting CT Surg eval. Hypernatremia - 2/2 decreased PO intake. Stable. Suggestion: -Good UOP although still with pulm edema - would cont to target >4L UOP/day - probably OK to give second dose of 60mg IV lasix today - may be "autodiuresing" -Cont D5W - PRN uptitration to target Na correction 6meq/day -f/u complements Please call [phone] with ?'s Subjective Subjective: SCr 3.1 5.6L UOP - only received 60mg IV lasix x1 Na 148 - on D5W at 100cc/hr - also with free water flushes Noted to have mild worsening of pulm vascular congestion on Chest X-ray R extremity with Group B strep aspirated; now thought to have small vegetation on mitral valve Objective Vital Signs and I&Os Vital Signs Date Time Temp Pulse Resp B/P B/P Pulse O2 O2 Flow FiO2 Mean Ox Delivery Rate 09/11 1204 30 09/11 0851 30 09/11 0802 88 151/68 09/11 0800 Ventilator 30% 09/11 0800 98.6 74 20 144/66 93 Ventilator 30% 09/11 0559 30 09/11 0400 94 Ventilator 30% 09/11 0316 30 09/11 0102 98.5 09/11 0046 30 09/11 0036 100.3 09/11 0000 92 Ventilator 30% 09/10 2333 100.7 09/10 2300 100.7 84 30 162/70 92 Ventilator 30% 09/10 2000 96 Ventilator 30% 09/10 1930 30 09/10 1615 35 09/10 1600 97.3 68 20 105/54 97 Ventilator 35% 09/10 1600 97 Ventilator 35% 09/10 1412 35 Intake & Output 09/11 1600 09/11 0400 09/10 1600 09/10 0400 09/09 1600 09/09 0400 Intake Total 1956 1715 2589 741 3111 1004 Output Total 1100 1600 4050 1200 1865 595 Balance 857 115 -1461 -459 1246 409 Intake, Blood 243 Product Intake, IV 1134 1057 0986 915 4606 1004 Intake, Oral 0 0 Intake, Tube 433 358 377 30 Feeding Intake, Tube 390 300 590 100 Irrigant Number 1 1 2 1 1 1 Bowel Movements Output, Urine 1100 1600 4050 1200 1865 595 Patient 253 lb Weight Physical Exam: Gen - intubated/sedated HEENT - +ETT CV - RRR, no m/r/g Chest - clear mechanical breath sounds anteriorly Abd - soft, NTND Ext - +edema, RLE erythematous Neuro - sedated Current Medications: Current Medications Sig/Jasvir Start time Last Medication Dose Route Stop Time Status Admin Acetaminophen 1,000 MG .STK-MED ONE 09/10 2318 DC IV 09/10 2319 Acetaminophen 650 MG Q6P PRN 09/06 0345 AC PO Acetaminophen 1,000 MG Q6P PRN 09/06 0345 AC 09/10 IV 2333 Albuterol Sulfate 3 ML Q4P PRN 09/06 1115 DC INH Ampicillin Sodium/ 3,000 MG Q8H 09/07 1745 AC 09/11 Sulbactam Sodium IV 0943 Sodium Chloride 100 ML Aspirin Buffered 81 MG DAILY 09/06 0900 AC 09/11 PO 0802 Chlorhexidine 15 ML BID 09/11 0900 AC 09/11 Gluconate PO 0944 Dextrose/Water 1,000 ML Q10H 09/10 1145 AC 09/11 IV 0447 Diltiazem HCl 125 MG Q16H 09/11 0900 CAN Dextrose/Water 100 ML IV Diltiazem HCl 125 MG Q12H 09/09 1615 DC 09/10 Dextrose/Water 100 ML IV 09/11 0859 1952 Fentanyl Citrate 50 MCG ONCE ONE 09/10 1400 DC 09/10 IV 09/10 1401 1401 Folic Acid 1 MG DAILY 09/07 1023 AC 09/11 PO 0802 Furosemide 60 MG ONCE ONE 09/11 1630 AC IV 09/11 1631 Furosemide 60 MG ONCE ONE 09/11 0730 DC 09/11 IV 09/11 0731 0754 Hydromorphone HCl 1 MG Q4P PRN 09/10 2215 AC 09/11 IV 1019 Hydromorphone HCl 1 MG ONCE ONE 09/10 1545 DC 09/10 IV 09/10 1546 1540 Insulin Aspart 0 Q4 09/10 1400 DC SC Insulin Aspart 0 Q4H 09/10 1200 AC 09/11 SC 1136 Insulin Detemir 12 UNITS BID 09/11 0900 AC 09/11 SC 0749 Insulin Detemir 8 UNITS BID 09/10 2100 DC 09/10 SC 2054 Lorazepam 2 MG ONCE ONE 09/10 1400 DC 09/10 IV 09/10 1401 1401 Lorazepam 50 MG Q24H 09/09 0830 AC 09/11 Sodium Chloride 500 ML IV 0803 Magnesium Oxide 400 MG .STK-MED ONE 09/11 1035 DC PO 09/11 1036 Magnesium Oxide 400 MG ONCE ONE 09/11 0615 DC 09/11 PO 09/11 0616 0622 Metoprolol Tartrate 100 MG BID 09/11 0900 AC 09/11 PO 0802 Multivitamins 1 TAB DAILY 09/07 1023 AC 09/11 PO 0802 Pantoprazole Sodium 40 MG DAILY 09/09 0900 AC 09/11 IV 0801 Potassium Chloride 20 MEQ .STK-MED ONE 09/11 1035 DC PO 09/11 1036 Potassium Chloride 20 MEQ ONCE ONE 09/11 0615 DC 09/11 PO 09/11 0616 0621 Potassium Chloride 40 MEQ ONCE ONE 09/10 1515 DC 09/10 PO 09/10 1516 1542 Thiamine HCl 50 MG DAILY 09/07 1023 AC 09/11 PO 0802 Results Pertinent Lab Results: Laboratory Tests 09/11 09/10 09/10 0341 1213 0857 Chemistry Sodium (137 - 145 mmol/L) 148 H 148 H Potassium (3.5 - 5.1 mmol/L) 3.8 3.4 L Chloride (98 - 107 mmol/L) 114 H 114 H Carbon Dioxide (22 - 30 mmol/L) 19 L 19 L Anion Gap (5 - 16) 16 15 BUN (9 - 20 mg/dL) 92 H 92 H Creatinine (0.7 - 1.2 mg/dL) 3.1 H 3.3 H Estimated GFR (>60 ml/min) 21 L 19 L Glucose (65 - 99 mg/dL) 292 H 292 H Calcium (8.4 - 10.2 mg/dL) 8.3 L 8.3 L Phosphorus (2.5 - 4.5 mg/dL) 4.7 H 4.6 H Magnesium (1.6 - 2.3 mg/dL) 1.9 2.1 Total Bilirubin (0.2 - 1.3 mg/dL) 1.1 1.4 H AST (17 - 59 U/L) 100 H 152 H ALT (21 - 72 U/L) 79 H 95 H Albumin (3.5 - 5.0 g/dL) 2.2 L 2.3 L Coagulation PT (9.4 - 12.5 SEC) 13.6 H INR (0.90 - 1.17) 1.24 H APTT (25 - 37 SEC) 28 Fibrinogen Activity (200 - 393 MG/DL) 894 H D-Dimer High Sensitivty (0 - 243 ng/ml) 3590 H Hematology CBC w Diff NO MAN DIFF REQ WBC (4.8 - 10.8 /CUMM) 12.1 H RBC (4.70 - 6.10 /CUMM) 3.81 L Hgb (14.0 - 18.0 G/DL) 10.1 L Hct (42 - 52 %) 31.1 L MCV (80.0 - 94.0 FL) 81.6 MCH (27.0 - 31.0 PG) 26.6 L MCHC (33.0 - 37.0 G/DL) 32.6 L RDW (11.5 - 14.5 %) 20.2 H Plt Count (130 - 400 /CUMM) 58 L MPV (7.4 - 10.4 FL) 10.8 H Gran % (42.2 - 75.2 %) 80.6 H Lymphocytes % (20.5 - 51.1 %) 9.4 L Monocytes % (1.7 - 9.3 %) 7.8 Eosinophils % (0 - 5 %) 2.1 Basophils % (0.0 - 2.0 %) 0.1 Absolute Granulocytes (1.4 - 6.5 /CUMM) 9.7 H Absolute Lymphocytes (1.2 - 3.4 /CUMM) 1.1 L Absolute Monocytes (0.10 - 0.60 /CUMM) 0.9 H Absolute Eosinophils (0.0 - 0.7 /CUMM) 0.3 Absolute Basophils (0.0 - 0.2 /CUMM) 0 09/10 09/09 3575 0820 Blood Gas pH (7.35 - 7.45 PH) 7.39 pCO2 (35 - 45 TORR) 28 L pO2 (80 - 100 TORR) 74 L HCO3 (21 - 28 MEQ/L) 17 L ABG O2 Sat (Measured) (>96.0 %) 93.0 L Carboxyhemoglobin (1.5 - 5.0 %) 0.7 L O2 Concentration % 45% Respiration Rate (BPM) 20 O2 Delivery Method VENT Vent Mode VC-AC Expiratory Pressure (CMH2O/P) 5 Tidal Volume (CC) 550 Pressure Support (CMH2O/P) 0 Chemistry Sodium (137 - 145 mmol/L) 150 H Potassium (3.5 - 5.1 mmol/L) 3.5 Chloride (98 - 107 mmol/L) 114 H Carbon Dioxide (22 - 30 mmol/L) 19 L Anion Gap (5 - 16) 16 BUN (9 - 20 mg/dL) 103 *H Creatinine (0.7 - 1.2 mg/dL) 3.5 H Estimated GFR (>60 ml/min) 18 L Glucose (65 - 99 mg/dL) 236 H Calcium (8.4 - 10.2 mg/dL) 8.6 Phosphorus (2.5 - 4.5 mg/dL) 4.9 H Magnesium (1.6 - 2.3 mg/dL) 2.4 H Total Bilirubin (0.2 - 1.3 mg/dL) 1.6 H AST (17 - 59 U/L) 200 H ALT (21 - 72 U/L) 106 H Albumin (3.5 - 5.0 g/dL) 2.5 L Hematology CBC w Diff NO MAN DIFF REQ WBC (4.8 - 10.8 /CUMM) 12.0 H RBC (4.70 - 6.10 /CUMM) 4.36 L Hgb (14.0 - 18.0 G/DL) 11.4 L Hct (42 - 52 %) 35.4 L MCV (80.0 - 94.0 FL) 81.2 MCH (27.0 - 31.0 PG) 26.2 L MCHC (33.0 - 37.0 G/DL) 32.2 L RDW (11.5 - 14.5 %) 20.4 H Plt Count (130 - 400 /CUMM) 54 L MPV (7.4 - 10.4 FL) 9.8 Gran % (42.2 - 75.2 %) 78.6 H Lymphocytes % (20.5 - 51.1 %) 9.0 L Monocytes % (1.7 - 9.3 %) 10.0 H Eosinophils % (0 - 5 %) 2.1 Basophils % (0.0 - 2.0 %) 0.3 Absolute Granulocytes (1.4 - 6.5 /CUMM) 9.5 H Absolute Lymphocytes (1.2 - 3.4 /CUMM) 1.1 L Absolute Monocytes (0.10 - 0.60 /CUMM) 1.2 H Absolute Eosinophils (0.0 - 0.7 /CUMM) 0.3 Absolute Basophils (0.0 - 0.2 /CUMM) 0 Miscellaneous Phlebotomy Draw Site LEFT RADIAL 09/09 09/08 0400 1424 Blood Gas pH (7.35 - 7.45 PH) 7.33 L pCO2 (35 - 45 TORR) 34 L pO2 (80 - 100 TORR) 103 H HCO3 (21 - 28 MEQ/L) 18 L ABG O2 Sat (Measured) (>96.0 %) 97.0 Carboxyhemoglobin (1.5 - 5.0 %) 0.3 L O2 Concentration % 70% Respiration Rate (BPM) 20 O2 Delivery Method VENT Vent Mode VC/AC Expiratory Pressure (CMH2O/P) 5 Tidal Volume (CC) 550 Chemistry Sodium (137 - 145 mmol/L) 148 H Potassium (3.5 - 5.1 mmol/L) 3.6 Chloride (98 - 107 mmol/L) 115 H Carbon Dioxide (22 - 30 mmol/L) 18 L Anion Gap (5 - 16) 15 BUN (9 - 20 mg/dL) 110 *H Creatinine (0.7 - 1.2 mg/dL) 4.0 H Estimated GFR (>60 ml/min) 15 L Glucose (65 - 99 mg/dL) 163 H Calcium (8.4 - 10.2 mg/dL) 8.2 L Phosphorus (2.5 - 4.5 mg/dL) 5.3 H Magnesium (1.6 - 2.3 mg/dL) 2.8 H Total Bilirubin (0.2 - 1.3 mg/dL) 1.8 H AST (17 - 59 U/L) 199 H ALT (21 - 72 U/L) 92 H Albumin (3.5 - 5.0 g/dL) 2.1 L Hematology CBC w Diff NO MAN DIFF REQ WBC (4.8 - 10.8 /CUMM) 11.2 H RBC (4.70 - 6.10 /CUMM) 3.86 L Hgb (14.0 - 18.0 G/DL) 10.2 L Hct (42 - 52 %) 31.1 L MCV (80.0 - 94.0 FL) 80.5 MCH (27.0 - 31.0 PG) 26.4 L MCHC (33.0 - 37.0 G/DL) 32.8 L RDW (11.5 - 14.5 %) 20.3 H Plt Count (130 - 400 /CUMM) 31 L MPV (7.4 - 10.4 FL) 9.9 Gran % (42.2 - 75.2 %) 70.8 Lymphocytes % (20.5 - 51.1 %) 12.6 L Monocytes % (1.7 - 9.3 %) 15.2 H Eosinophils % (0 - 5 %) 1.4 Basophils % (0.0 - 2.0 %) 0 Absolute Granulocytes (1.4 - 6.5 /CUMM) 7.9 H Absolute Lymphocytes (1.2 - 3.4 /CUMM) 1.4 Absolute Monocytes (0.10 - 0.60 /CUMM) 1.7 H Absolute Eosinophils (0.0 - 0.7 /CUMM) 0.2 Absolute Basophils (0.0 - 0.2 /CUMM) 0 Miscellaneous Phlebotomy Draw Site RIGHT RADIAL 09/08 1400 Coagulation PT (9.4 - 12.5 SEC) 14.7 H INR (0.90 - 1.17) 1.34 H APTT (25 - 37 SEC) 33 Fibrinogen Activity (200 - 393 MG/DL) 659 H Imaging/Other Studies: Chest X-ray IMPRESSION: Suggestion of mild worsening of the patient's vascular congestive changes.
[2017-09-11 16:00] VITALS: BP 140/60
[2017-09-12] VITALS: BP 124/80
[2017-09-12 05:18] LABS: ABSOLUTE BASOPHIL COUNT 0 /CUMM (0.0-0.2); ABSOLUTE EOSINOPHIL COUNT 0.3 /CUMM (0.0-0.7); ABSOLUTE GRANULOCYTE CT 13.1 /CUMM (1.4-6.5); ABSOLUTE LYMPH COUNT 1.5 /CUMM (1.2-3.4); ABSOLUTE MONOCYTE COUNT 1.5 /CUMM (0.10-0.60); BASOPHIL % 0.1 % (0.0-2.0); EOSINOPHIL % 1.8 % (0-5); GRANULOCYTE % 79.8 % (42.2-75.2); HEMATOCRIT 30.7 % (42-52); MEAN CORPUSCULAR HGB 26.8 PG (27.0-31.0); MEAN CORPUSCULAR HGB CONC 32.5 G/DL (33.0-37.0); MEAN CORPUSCULAR VOLUME 82.4 FL (80.0-94.0); PLATELET COUNT 84 /CUMM (130-400); RBC DISTRIBUTION WIDTH 19.8 % (11.5-14.5); RED BLOOD CELL CT 3.73 /CUMM (4.70-6.10); WHITE BLOOD CELL COUNT 16.4 /CUMM (4.8-10.8)
--- NOTE | 2017-09-12 07:09 | PN- Resident CRCU ---
Subjective HPI/CRCU Issues: Sepsis Bacteremia (Group B STREPT) Fevers PAF, endocarditis (?) Elevated blood glucose Intubated (day5) 24 Hour Events: Febrile overnight Increased loose stools in the past 24 hours No acute telemetry events Objective Vital Signs & I&O Last 8 Hrs of Vitals and I&O: Laboratory Tests 09/12 0430 Chemistry Sodium (137 - 145 mmol/L) 147 H Potassium (3.5 - 5.1 mmol/L) 3.9 Chloride (98 - 107 mmol/L) 111 H Carbon Dioxide (22 - 30 mmol/L) 22 Anion Gap (5 - 16) 14 BUN (9 - 20 mg/dL) 93 H Creatinine (0.7 - 1.2 mg/dL) 3.0 H Estimated GFR (>60 ml/min) 21 L Glucose (65 - 99 mg/dL) 253 H Calcium (8.4 - 10.2 mg/dL) 8.3 L Phosphorus (2.5 - 4.5 mg/dL) 5.6 H Magnesium (1.6 - 2.3 mg/dL) 1.6 Total Bilirubin (0.2 - 1.3 mg/dL) 0.9 AST (17 - 59 U/L) 61 H ALT (21 - 72 U/L) 62 Albumin (3.5 - 5.0 g/dL) 2.3 L Hematology CBC w Diff NO MAN DIFF REQ WBC (4.8 - 10.8 /CUMM) 16.4 H RBC (4.70 - 6.10 /CUMM) 3.73 L Hgb (14.0 - 18.0 G/DL) 10.0 L Hct (42 - 52 %) 30.7 L MCV (80.0 - 94.0 FL) 82.4 MCH (27.0 - 31.0 PG) 26.8 L MCHC (33.0 - 37.0 G/DL) 32.5 L RDW (11.5 - 14.5 %) 19.8 H Plt Count (130 - 400 /CUMM) 84 L MPV (7.4 - 10.4 FL) 11.0 H Gran % (42.2 - 75.2 %) 79.8 H Lymphocytes % (20.5 - 51.1 %) 9.4 L Monocytes % (1.7 - 9.3 %) 8.9 Eosinophils % (0 - 5 %) 1.8 Basophils % (0.0 - 2.0 %) 0.1 Absolute Granulocytes (1.4 - 6.5 /CUMM) 13.1 H Absolute Lymphocytes (1.2 - 3.4 /CUMM) 1.5 Absolute Monocytes (0.10 - 0.60 /CUMM) 1.5 H Absolute Eosinophils (0.0 - 0.7 /CUMM) 0.3 Absolute Basophils (0.0 - 0.2 /CUMM) 0 Immunology Complement C3 Pending Complement C4 Pending Intake & Output 09/12 1600 Intake Total 2280 Output Total 1900 Balance 380 Intake, IV 1197 Intake, Tube 358 Feeding Intake, Tube 725 Irrigant Number 4 Bowel Movements Output, Urine 1900 Exam General Appearance: sedated, intubated Head: atraumatic, normal appearance Respiratory: lungs clear Gastrointestinal: normal bowel sounds, soft Extremities: right foot appears more swollen and eythematous compared to previous days. pulses intact though. Current Medications: Current Medications Sig/Jasvir Start time Last Medication Dose Route Stop Time Status Admin Acetaminophen 650 MG Q6P PRN 09/06 0345 AC PO Acetaminophen 1,000 MG Q6P PRN 09/06 0345 AC 09/11 IV 2111 Ampicillin Sodium/ 3,000 MG Q8H 09/07 1745 AC 09/12 Sulbactam Sodium IV 1714 Sodium Chloride 100 ML Aspirin Buffered 81 MG DAILY 09/06 0900 AC 09/12 PO 0811 Chlorhexidine 15 ML BID 09/11 0900 09/12 Gluconate PO 0811 Dextrose/Water 1,000 ML Q10H 09/10 1145 09/12 IV 1020 Folic Acid 1 MG DAILY 09/07 1023 AC 09/12 PO 0811 Furosemide 60 MG ONCE ONE 09/12 0845 HI 09/12 IV 09/12 0846 0855 Hydromorphone HCl 1 MG Q4P PRN 09/10 2215 09/12 IV 1742 Insulin Aspart 6 UNITS .STK-MED ONE 09/12 0442 [facility] 09/12 0443 Insulin Aspart 6 UNITS .STK-MED ONE 09/11 2358 [facility] 09/11 2359 Insulin Aspart 0 Q4H 09/10 1200 09/12 SC 2019 Insulin Detemir 15 UNITS BID 09/12 0900 09/12 SC 0811 Lorazepam 50 MG Q24H 09/09 0830 AC 09/12 Sodium Chloride 500 ML IV 0821 Magnesium Sulfate 1 GM ONCE ONE 09/12 1445 DC 09/12 Dextrose/Water 100 ML IV 09/12 1844 1505 Metoprolol Tartrate 100 MG BID 09/11 0900 AC 09/12 PO 0811 Multivitamins 1 TAB DAILY 09/07 1023 AC 09/12 PO 0811 Pantoprazole Sodium 40 MG DAILY 09/09 0900 AC 09/12 IV 0811 Potassium Chloride 20 MEQ ONCE ONE 09/12 1445 DC 09/12 PO 09/12 1446 1504 Thiamine HCl 50 MG DAILY 09/07 1023 AC 09/12 PO 0811 Vancomycin HCl 125 MG Q6 09/12 1800 AC 09/12 PO 1742 Zinc Oxide 1 GATO TID PRN 09/11 1530 AC 09/12 TOP 0732 Impression/Plan Impression/Problem List Impression: Impression: 65 y/o M with PMH of DM, Gout(?), LA s/p CABG on aspirin/plavix, hypertension and hyperlipidemia was brought to the ED 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 Patient is reported to have had a sudden onset dysarthria, difficulty swallowing and L nasolabial fold drooping. This neurological deficits or transit and result on the patient was in the ICU. Patient was also found to have new onset A. fib . Assessment: 1. Acute Hypoxemic Respiratory Failure now intubated due to increased work of breathing and tachypnea. 2. Group B strep bacteremia 3. Endocarditis 3. Atrial Fibrilliation with RVR - now in NSR 4.. DEMETRIO 5. Evolving lacunar infarct as evident by today's CT scan . 6 Elevated Troponins. Type II LA. Now resolved. 7.Charcoat athropathy 8.Increased swellling/inflammation of right foot requiring i&D 9. Thrombocytopenia most likely secondary to sepsis, there is concern of DIC. 10. Uncontrolled blood sugars 11.Hypernatremia 12. Increased lose stools more than 4/day, concerning for c .diff maite in the context of fevers Plan: * Continue monitoring in ICU * continue on mechanical ventilation with assist control with VT is of 550, PEEP of 5, respiratory rate of 20, current FiO2 is decreased now it around 35%. We' ll attempt a liberation trial tomorrow. * Currently on IV Unasyn (day 7). * Send c.diff toxin stool sample * tube feeds changed to Glucerna and levemir increased to address uncontrolled sugars * Continue OG tube for meds administration * Continue to hold off Atorvastatin 80mg given the patient has increasing transaminits * DEMETRIO stable. * continue 300mls q6h free water in the context of hypernatremia * IV lasix 60mg twice a day to encourage negative fluid balance * Monitor thrombocytopenia. S/p 2 units. Improving. * HOld off on the APIXABAN for now, until no further possible procedures indicated, in the meantime we will start Heparin drip once plaetelets have been consistently above 80,[address] head is unremarkable for any hemorrhagic transformation of the lacunar strokes * Will await further podiatry recommendation, given that the patient is growing group B strep from the foot aspiration. This is most likely the source of patient's bacteremia and endocarditis will therefore require intervention. * Diet: Glucerna * DVT Prophylaxis: ALPS only. * Code: Full Code Problem List: 1. Bacteremia 2. Endocarditis 3. Sepsis due to group B Streptococcus 4. Charcot's arthropathy 5. Thrombocytopenia 6. New onset a-fib 7. DEMETRIO (acute kidney injury) 8. CVA (cerebral vascular accident) Pain Ratin Tomorrow's Labs & Rationales: icu Plan DVT/Prophylaxis: mechanical
--- NOTE | 2017-09-12 07:26 | PN- CRCU ---
Subjective HPI/Critical Care Issues: The patient remains intubated and sedated, on Ativan drip at 2 mg per hour. The patient has had multiple bowel movements, noting he has had loose stools. His right foot appears more swollen today. The patient was febrile with a fever of 101.6, and repeat cultures were ordered. Blood sugars are better controlled on Glucerna. Objective Current Medications: Current Medications Sig/Jasvir Start time Last Medication Dose Route Stop Time Status Admin Acetaminophen 650 MG Q6P PRN 09/06 0345 AC PO Acetaminophen 1,000 MG Q6P PRN 09/06 0345 AC 09/11 IV 2111 Ampicillin Sodium/ 3,000 MG Q8H 09/07 1745 AC 09/12 Sulbactam Sodium IV 0206 Sodium Chloride 100 ML Aspirin Buffered 81 MG DAILY 09/06 09 AC 09/11 PO 0802 Chlorhexidine 15 ML BID 09/11 09 AC 09/11 Gluconate PO 2113 Dextrose/Water 1,000 ML Q10H 09/10 1145 AC 09/11 IV 1459 Diltiazem HCl 125 MG Q16H 09/11 0900 CAN Dextrose/Water 100 ML IV Diltiazem HCl 125 MG Q12H 09/09 1615 DC 09/10 Dextrose/Water 100 ML IV 09/11 0859 1952 Folic Acid 1 MG DAILY 09/07 1023 AC 09/11 PO 0802 Furosemide 60 MG ONCE ONE 09/11 1630 DC 09/11 IV 09/11 1631 1610 Furosemide 60 MG ONCE ONE 09/11 0730 DC 09/11 IV 09/11 0731 0754 Hydromorphone HCl 1 MG Q4P PRN 09/10 2215 AC 09/12 IV 0317 Insulin Aspart 0 Q4H 09/10 1200 AC 09/12 SC 0444 Insulin Detemir 15 UNITS BID 09/12 0900 AC SC Insulin Detemir 12 UNITS BID 09/11 0900 DC 09/11 SC 2111 Lorazepam 50 MG Q24H 09/09 0830 AC 09/11 Sodium Chloride 500 ML IV 0803 Magnesium Oxide 400 MG .STK-MED ONE 09/11 1035 DC PO 09/11 1036 Metoprolol Tartrate 100 MG BID 09/11 0900 AC 09/11 PO 2112 Multivitamins 1 TAB DAILY 09/07 1023 AC 09/11 PO 0802 Pantoprazole Sodium 40 MG DAILY 09/09 0900 AC 09/11 IV 0801 Potassium Chloride 20 MEQ .STK-MED ONE 09/11 1035 DC PO 09/11 1036 Thiamine HCl 50 MG DAILY 09/07 1023 AC 09/11 PO 0802 Zinc Oxide 1 GATO TID PRN 09/11 1530 AC TOP Vital Signs & I&O Last 24 Hrs of Vitals and I&O: Vital Signs Date Time Temp Pulse Resp B/P B/P Pulse O2 O2 Flow FiO2 Mean Ox Delivery Rate 09/12 0549 30 09/12 0400 95 Ventilator 30% 09/12 0243 30 09/12 0000 95 Ventilator 30% 09/12 0000 100.9 86 23 124/80 95 Ventilator 30% 09/11 2356 30 09/11 2220 30 09/11 2155 101.0 09/11 2112 101.6 97 24 142/55 09/11 2111 101.6 09/11 2000 97 Nasal 30% Cannula 09/11 1922 30 09/11 1727 30 09/11 1600 93 Ventilator 30% 09/11 1600 99.6 88 22 140/60 92 Ventilator 30% 09/11 1417 30 09/11 1204 30 09/11 1200 93 Ventilator 30% 09/11 0851 30 09/11 0802 88 151/68 09/11 0800 Ventilator 30% 09/11 0800 98.6 74 20 144/66 93 Ventilator 30% Intake & Output 09/12 0800 09/12 0000 09/11 1600 Intake Total 1896 2240 2046 Output Total 900 2000 2525 Balance 996 240 -479 Intake, IV 816 1160 1126 Intake, Other 600 Intake, Tube 480 480 414 Feeding Intake, Tube 600 506 Irrigant Number 1 1 Bowel Movements Output, Urine 900 2000 2525 Physical Exam General Appearance: Sedated and intubated, no distress Head: atraumatic, normal appearance Eyes: Bilateral: normal appearance, PERRL Neck: normal inspection, supple Respiratory: Bilateral anterior rhonchi heard, few scattered crackles Cardiovascular: S1 and S2 heard Gastrointestinal: normal bowel sounds, soft, non-tender Extremities: Right foot swelling over the dorsum, appears worse, warm to touch Skin: intact, normal color Results Last 24 Hrs of Lab Results: Laboratory Tests 09/12/17 0430: Anion Gap 14, Estimated GFR 21 L, Glucose 253 H, Calcium 8.3 L, Phosphorus 5.6 H, Magnesium 1.6, Total Bilirubin 0.9, AST 61 H, ALT 62, Albumin 2.3 L, CBC w Diff NO MAN DIFF REQ, RBC 3.73 L, MCV 82.4, MCH 26.8 L, MCHC 32.5 L, RDW 19.8 H, MPV 11.0 H, Gran % 79.8 H, Lymphocytes % 9.4 L, Monocytes % 8.9, Eosinophils % 1.8, Basophils % 0.1, Absolute Granulocytes 13.1 H, Absolute Lymphocytes 1.5, Absolute Monocytes 1.5 H, Absolute Eosinophils 0.3, Absolute Basophils 0 Last 24 Hrs of Micro Results: Right foot abscess positive for group B strep. Diagnostic Data CXR Findings: Suggestion of mild worsening of the patient's vascular congestive changes. Impression/Plan Impression/Plan Impression/Plan: 1. 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 The patient was febrile last evening and recultured. 2. Acute on chronic renal failure, creatinine trending down slowly, secondary to ATN. 3. Hypernatremia, on free water replacement, slowly improving. 4. Acute hypoxemic respiratory failure in the setting of fluid overload versus aspiration pneumonia. 5. Improving thrombocytopenia, secondary to sepsis. 6. Atrial fibrillation, now in sinus rhythm. 7. Lacunar stroke. 8. Positive troponins, suggestive of demand ischemia. 9. Cirrhosis, LFTs continue to improve. 10. Right lower extremity fractures and abscess formation. 11. Encephalopathy. 12. Malnutrition. 13. Evacuation of abscess, from the dorsum of the right foot (09/10/17). Recommendations: * Continue free water flushes to 300 mL every 4 hours. * Continue IVFs per nephrology. * Will continue to adjust insulinLevemir and sliding scale insulin. Endocrine consult to be requested if sugars remain uncontrolled. * Check stool for C. difficile. * Follow cardiology recommendations for diuresis. * Check head CT today. * Start anticoagulation over the weekend if no evidence of bleed and platelet count remains stable. * Follow up all cultures. * Continue IV Unasyn, will continue to follow ID recommendations. * Surgical intervention for right foot debridement? * Dilaudid for pain control. * Continue Ativan drip, decrease for SAS of 4. * Continue with daily sedation vacations. * We will begin weaning trials however the patient needs to be awake and alert for consideration of extubation. * Vent bundle/DVT and GI prophylaxis at all times. * The patient remains critically ill. I discussed the plan of care with the house staff and asked them to contact me if the patient's condition changes.
--- NOTE | 2017-09-12 07:28 | PN- Hematology ---
Subjective Subjective: He remains intubated and sedated. He continues to be febrile. Review of Systems: Unable to be obtained due to intubation and sedation. Objective Vital Signs and I&Os Vital Signs Date Time Temp Pulse Resp B/P B/P Pulse O2 O2 Flow FiO2 Mean Ox Delivery Rate 09/12 0549 30 09/12 0400 95 Ventilator 30% 09/12 0243 30 09/12 0000 95 Ventilator 30% 09/12 0000 100.9 86 23 124/80 95 Ventilator 30% 09/11 2356 30 09/11 2220 30 09/11 2155 101.0 09/11 2112 101.6 97 24 142/55 09/11 2111 101.6 09/11 2000 97 Nasal 30% Cannula 09/11 1922 30 09/11 1727 30 09/11 1600 93 Ventilator 30% 09/11 1600 99.6 88 22 140/60 92 Ventilator 30% 09/11 1417 30 09/11 1204 30 09/11 1200 93 Ventilator 30% 09/11 0851 30 09/11 0802 88 151/68 09/11 0800 Ventilator 30% 09/11 0800 98.6 74 20 144/66 93 Ventilator 30% Intake & Output 09/12 0800 09/12 0000 09/11 1600 09/11 0800 09/11 0000 09/10 1600 Intake Total 1896 2240 2046 1957 1715 1643 Output Total 900 1999 2525 1100 1600 2300 Balance 996 240 -479 857 115 -657 Intake, IV 816 1160 1126 1134 1057 1100 Intake, Oral 0 0 Intake, Other 600 Intake, Tube 480 480 414 433 358 243 Feeding Intake, Tube 600 506 390 300 300 Irrigant Number 1 1 1 1 1 Bowel Movements Output, Urine 900 1999 2525 1100 1600 2300 Physical Exam: General Appearance: no apparent distress, obese,sedated Ears, Nose, Throat: ET tube in place, dry blood on lips Respiratory: chest non-tender, no respiratory distress, rhonchi, ventilator noise Cardiovascular: tachycardia, irregularly irregular Gastrointestinal: non-tender, no organomegaly, abnormal bowel sounds (hypoactive ), distention Extremities: Bilateral lower extremity, 3+ in R, 1+ in L, right foot with dressing in place. Neurologic/Psych: sedated Skin: warm/dry Current Medications: Current Medications Sig/Jasvir Start time Last Medication Dose Route Stop Time Status Admin Acetaminophen 650 MG Q6P PRN 09/06 0345 AC PO Acetaminophen 1,000 MG Q6P PRN 09/06 0345 AC 09/11 IV 2111 Ampicillin Sodium/ 3,000 MG Q8H 09/07 1745 AC 09/12 Sulbactam Sodium IV 0206 Sodium Chloride 100 ML Aspirin Buffered 81 MG DAILY 09/06 0900 AC 09/11 PO 0802 Chlorhexidine 15 ML BID 09/11 0900 AC 09/11 Gluconate PO 2113 Dextrose/Water 1,000 ML Q10H 09/10 1145 AC 09/11 IV 1459 Diltiazem HCl 125 MG Q16H 09/11 0900 CAN Dextrose/Water 100 ML IV Diltiazem HCl 125 MG Q12H 09/09 1615 DC 09/10 Dextrose/Water 100 ML IV 09/11 0859 1952 Folic Acid 1 MG DAILY 09/07 1023 AC 09/11 PO 0802 Furosemide 60 MG ONCE ONE 09/11 1630 DC 09/11 IV 09/11 1631 1610 Furosemide 60 MG ONCE ONE 09/11 0730 DC 09/11 IV 09/11 0731 0754 Hydromorphone HCl 1 MG Q4P PRN 09/10 2215 AC 09/12 IV 0317 Insulin Aspart 0 Q4H 09/10 1200 AC 09/12 SC 0444 Insulin Detemir 15 UNITS BID 09/12 0900 AC SC Insulin Detemir 12 UNITS BID 09/11 0900 DC 09/11 SC 2111 Lorazepam 50 MG Q24H 09/09 0830 AC 09/11 Sodium Chloride 500 ML IV 0803 Magnesium Oxide 400 MG .STK-MED ONE 09/11 1035 DC PO 09/11 1036 Metoprolol Tartrate 100 MG BID 09/11 0900 AC 09/11 PO 2112 Multivitamins 1 TAB DAILY 09/07 1023 AC 09/11 PO 0802 Pantoprazole Sodium 40 MG DAILY 09/09 0900 AC 09/11 IV 0801 Potassium Chloride 20 MEQ .STK-MED ONE 09/11 1035 DC PO 09/11 1036 Thiamine HCl 50 MG DAILY 09/07 1023 AC 09/11 PO 0802 Zinc Oxide 1 GATO TID PRN 09/11 1530 AC TOP Results Last 24 Hours of Lab Results: Laboratory Tests 09/12 0430 Chemistry Sodium (137 - 145 mmol/L) 147 H Potassium (3.5 - 5.1 mmol/L) 3.9 Chloride (98 - 107 mmol/L) 111 H Carbon Dioxide (22 - 30 mmol/L) 22 Anion Gap (5 - 16) 14 BUN (9 - 20 mg/dL) 93 H Creatinine (0.7 - 1.2 mg/dL) 3.0 H Estimated GFR (>60 ml/min) 21 L Glucose (65 - 99 mg/dL) 253 H Calcium (8.4 - 10.2 mg/dL) 8.3 L Phosphorus (2.5 - 4.5 mg/dL) 5.6 H Magnesium (1.6 - 2.3 mg/dL) 1.6 Total Bilirubin (0.2 - 1.3 mg/dL) 0.9 AST (17 - 59 U/L) 61 H ALT (21 - 72 U/L) 62 Albumin (3.5 - 5.0 g/dL) 2.3 L Hematology CBC w Diff NO MAN DIFF REQ WBC (4.8 - 10.8 /CUMM) 16.4 H RBC (4.70 - 6.10 /CUMM) 3.73 L Hgb (14.0 - 18.0 G/DL) 10.0 L Hct (42 - 52 %) 30.7 L MCV (80.0 - 94.0 FL) 82.4 MCH (27.0 - 31.0 PG) 26.8 L MCHC (33.0 - 37.0 G/DL) 32.5 L RDW (11.5 - 14.5 %) 19.8 H Plt Count (130 - 400 /CUMM) 84 L MPV (7.4 - 10.4 FL) 11.0 H Gran % (42.2 - 75.2 %) 79.8 H Lymphocytes % (20.5 - 51.1 %) 9.4 L Monocytes % (1.7 - 9.3 %) 8.9 Eosinophils % (0 - 5 %) 1.8 Basophils % (0.0 - 2.0 %) 0.1 Absolute Granulocytes (1.4 - 6.5 /CUMM) 13.1 H Absolute Lymphocytes (1.2 - 3.4 /CUMM) 1.5 Absolute Monocytes (0.10 - 0.60 /CUMM) 1.5 H Absolute Eosinophils (0.0 - 0.7 /CUMM) 0.3 Absolute Basophils (0.0 - 0.2 /CUMM) 0 Assessment/Plan Hematology Assessment/Recommendations: Mr. Rooney is a 61-year-old man with DM, HTN, CAD s/p MT, CABG, AICD/pacemaker, prostate cancer s/p TURP, cirrhosis, and recurrent cellulitis of the left thigh s/p right great toe debridement who presented to the hospital with slurred speech and left facial drop for a few days. He was noted to have TIA with CT head demonstrating subtle low-attenuation noted in the junction of the posterior limb and internal capsule and right hippocampal junction. 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 Blood cultures and right foot aspiration grew beta strep group B. He is on Unasyn. ID is following. Thrombocytopenia is improving. It is 84,000 today. DIC panel was stable. He will continue to be on antibiotics as per ID. He may need I&D. Renal function is stable. Thrombocytopenia: -transfusion platelet if: -<10,000 -<20,000 with fever -<50,000 with bleeding and ? procedures Renal injury: -follow up with renal recommendations -monitor BMP -follow up SPEP Beta Strep Group B sepsis: -ID is following -antibiotic as per ID/primary Acute respiratory failure: -management as per primary/ICU Please call [phone] with any questions or concerns. I will follow peripherally. Problem List: 1. Endocarditis 2. Thrombocytopenia 3. DEMETRIO (acute kidney injury) 4. CVA (cerebral vascular accident) 5. Sepsis due to group B Streptococcus
[2017-09-12 08:00] VITALS: BP 178/82
--- NOTE | 2017-09-12 12:00 | CT SCAN REPORT ---
EXAMINATION: CT HEAD WITHOUT CONTRAST CLINICAL INFORMATION: Rule out hemorrhagic conversion of infarct. COMPARISON: Head CT from 09/08/2017. TECHNIQUE: Contiguous axial imaging was performed from the skull base to vertex without intravenous administration of contrast. DLP: 693.6 mGy-cm FINDINGS: There is no evidence of acute intracranial hemorrhage or territorial infarction. No abnormal mass effect or midline shift is seen. [place] to white matter differentiation is well preserved. No extra-axial fluid collections are identified. The ventricles are normal in size. Subtle areas of questionable low density change in the right hippocampus an right frontal parafalcine region described on prior imaging are not readily apparent. The osseous structures and soft tissues are normal. The mastoid air cells are well aerated. There is mild mucosal thickening in the ethmoid sinus air cells. IMPRESSION: No acute intracranial pathology. No territorial infarction or intracranial hemorrhage.
--- NOTE | 2017-09-12 12:48 | PN- Infect Dx ---
Subjective Subjective: The patient remains intubated and sedated, on Ativan drip at 2 mg per hour. The patient has had multiple bowel movements (loose stools); TF at 60 cc/hr. Barber patent. The patient was febrile with a fever of 101.6 last evening. Review of Systems Comments: 12 points reviewed as noted, otherwise negative. Objective Last 24 Hrs of Vital Signs/I&O Vital Signs Date Time Temp Pulse Resp B/P B/P Pulse O2 O2 Flow FiO2 Mean Ox Delivery Rate 09/12 1200 94 Ventilator 30% 09/12 1136 30 09/12 0831 30 09/12 0811 178/82 09/12 0800 99.0 88 23 178/82 96 Ventilator 30% 09/12 0800 96 Ventilator 30% 09/12 0549 30 09/12 0400 95 Ventilator 30% 09/12 0243 30 09/12 0000 95 Ventilator 30% 09/12 0000 100.9 86 23 124/80 95 Ventilator 30% 09/11 2356 30 09/11 2220 30 09/11 2155 101.0 09/11 2112 101.6 97 24 142/55 09/11 2111 101.6 09/11 2000 97 Nasal 30% Cannula 09/11 1922 30 09/11 1727 30 09/11 1600 93 Ventilator 30% 09/11 1600 99.6 88 22 140/60 92 Ventilator 30% 09/11 1417 30 Intake & Output 09/12 1600 09/12 0800 09/12 0000 Intake Total 1896 2240 Output Total 900 2000 Balance 996 240 Intake, IV 816 1160 Intake, Other 600 Intake, Tube 480 480 Feeding Intake, Tube 600 Irrigant Number 1 Bowel Movements Output, Urine 900 2000 Physical Exam Other Physical Findings: General Appearance: Sedated and intubated, no distress Head: atraumatic, normal appearance Eyes: Bilateral: normal appearance, PERRL Neck: normal inspection, supple Respiratory: Bilateral anterior rhonchi heard, few scattered crackles Cardiovascular: S1 and S2 heard Gastrointestinal: normal bowel sounds, soft, non-tender Extremities: Right foot swelling over the dorsum, appears worse, warm to touch Skin: intact, normal color Results Last 24 Hours of Lab Results: Laboratory Tests 09/12 0430 Chemistry Sodium (137 - 145 mmol/L) 147 H Potassium (3.5 - 5.1 mmol/L) 3.9 Chloride (98 - 107 mmol/L) 111 H Carbon Dioxide (22 - 30 mmol/L) 22 Anion Gap (5 - 16) 14 BUN (9 - 20 mg/dL) 93 H Creatinine (0.7 - 1.2 mg/dL) 3.0 H Estimated GFR (>60 ml/min) 21 L Glucose (65 - 99 mg/dL) 253 H Calcium (8.4 - 10.2 mg/dL) 8.3 L Phosphorus (2.5 - 4.5 mg/dL) 5.6 H Magnesium (1.6 - 2.3 mg/dL) 1.6 Total Bilirubin (0.2 - 1.3 mg/dL) 0.9 AST (17 - 59 U/L) 61 H ALT (21 - 72 U/L) 62 Albumin (3.5 - 5.0 g/dL) 2.3 L Hematology CBC w Diff NO MAN DIFF REQ WBC (4.8 - 10.8 /CUMM) 16.4 H RBC (4.70 - 6.10 /CUMM) 3.73 L Hgb (14.0 - 18.0 G/DL) 10.0 L Hct (42 - 52 %) 30.7 L MCV (80.0 - 94.0 FL) 82.4 MCH (27.0 - 31.0 PG) 26.8 L MCHC (33.0 - 37.0 G/DL) 32.5 L RDW (11.5 - 14.5 %) 19.8 H Plt Count (130 - 400 /CUMM) 84 L MPV (7.4 - 10.4 FL) 11.0 H Gran % (42.2 - 75.2 %) 79.8 H Lymphocytes % (20.5 - 51.1 %) 9.4 L Monocytes % (1.7 - 9.3 %) 8.9 Eosinophils % (0 - 5 %) 1.8 Basophils % (0.0 - 2.0 %) 0.1 Absolute Granulocytes (1.4 - 6.5 /CUMM) 13.1 H Absolute Lymphocytes (1.2 - 3.4 /CUMM) 1.5 Absolute Monocytes (0.10 - 0.60 /CUMM) 1.5 H Absolute Eosinophils (0.0 - 0.7 /CUMM) 0.3 Absolute Basophils (0.0 - 0.2 /CUMM) 0 Last 24 Hours of Shady Results: SPEC #: [id number] JOSE MARIA: 09/06/17 STATUS: COMP RECD: 09/06/[address] [facility] [address]: Samson GARCIA,Mick SOURCE: BLOOD ENTR: 09/06/[address] [facility] [address]: Margot Pierre DO SPDESC: 2ND/VENOUS Lluvia GARCIA, Jose ORDERED: BLOOD CULTURE Procedure Result > BLOOD CULTURE REPORT Final 09/07/17 GRAM STAIN SUGGESTIVE OF: GRAM POSITIVE COCCI IN CHAINS Called to/Readback by RAJESH by [email or web address] 09/06/17 1627 BETA STREP GROUP B isolated Called to/Readback by EMORY by LAB.[email or web address] 09/07/17 0850 Penicillin and Ampicillin are drugs of choice for beta-hemolytic streptococcal infections. Susceptibility testing of penicillins and other beta-lactams are not routinely performed because non-susceptible isolates have only rarely been reported. Note: If patient is allergic to Penicillin, the laboratory can perform Clindamycin testing upon request. Please call within 5 days of final report. Recent Imaging Studies: CT head IMPRESSION: No acute intracranial pathology. No territorial infarction or intracranial hemorrhage. DICTATED BY: Leander Antoine MD DATE/TIME DICTATED:09/12/171151 PLUG PASTER:REGI DATE/TIME TRANSCRIBED:09/12/171151 CONFIDENTIAL, DO NOT COPY WITHOUT APPROPRIATE AUTHORIZATION. Assessment/Plan ID Impression: 1. 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 The patient was febrile last evening and recultured. Abx associated diarrhea; r/o C. difficile infection 2. Acute on chronic renal failure, creatinine trending down slowly, secondary to ATN. 3. Hypernatremia, on free water replacement, slowly improving. 4. Acute hypoxemic respiratory failure in the setting of fluid overload versus aspiration pneumonia. 5. Improving thrombocytopenia, secondary to sepsis. 6. Atrial fibrillation, now in sinus rhythm. 7. Lacunar stroke. 8. Evacuation of abscess, from the dorsum of the right foot (09/10/17); cx + Strep gr B. Suggestion: 1. Continue iv Unasyn D #6; at risk C. diff infection; f/u C. difficile stool assay results; empiric oral vancomycin 125 mg po q 6 h to be considered if persistent diarrhea. 2. Trend CBC (worsening leukocytosis noted), BMP. 3. F/U CT foot results; f/u podiatry recom.
--- NOTE | 2017-09-12 12:48 | PN- Nephrology ---
Assessment/Plan Nephrology Assessment: DEMETRIO - Likely 2/2 ischemic ATN in the setting of A fib with RVR and renal hypoperfusion, contrast on 09/05, and additional hypotensive episode. Although much less likely, could be infection related GN for which complements should be sent (treatment of which is supportive). Renal function improving even with diuresis. No clear dialysis need at this time. Proteinuria - discrepancy between UA and Uprot/Cr raises suspicion for paraprotein for which he should be evaluated (KLFLC ratio normal). Albumin level is low and proteinuria is nephrotic range. Should note as above that infection related GN is also on the differential. Group B Strep Bacteremia - foot source. Possible endocarditis. Being followed by ID. Awaiting CT Surg eval. Hypernatremia - 2/2 decreased PO intake. Slowly improving on D5W. Suggestion: -Good UOP - cont to target >4L/day (at least over the next day) with 60mg IV lasix - back off if SCr goes back up and/or BP drops - he may be "autodiuresing -Cont D5W - PRN uptitration to target Na correction 6meq/day -Please send C3, C4, and SPEP Please call [phone] with ?'s Subjective Subjective: SCr 3.0 Na 147 5.6L UOP - given 60mg IV lasix Febrile; rising WBC Head CT neg Objective Vital Signs and I&Os Vital Signs Date Time Temp Pulse Resp B/P B/P Pulse O2 O2 Flow FiO2 Mean Ox Delivery Rate 09/12 1200 94 Ventilator 30% 09/12 1136 30 09/12 0831 30 09/12 0811 178/82 09/12 0800 99.0 88 23 178/82 96 Ventilator 30% 09/12 0800 96 Ventilator 30% 09/12 0549 30 09/12 0400 95 Ventilator 30% 09/12 0243 30 09/12 0000 95 Ventilator 30% 09/12 0000 100.9 86 23 124/80 95 Ventilator 30% 09/11 2356 30 09/11 2220 30 09/11 2155 101.0 09/12 2111 101.6 97 24 142/55 09/11 2110 101.6 09/11 2000 97 Nasal 30% Cannula 09/11 1922 30 09/11 1727 30 09/11 1600 93 Ventilator 30% 09/11 1600 99.6 88 22 140/60 92 Ventilator 30% 09/11 1417 30 Intake & Output 09/12 1600 09/12 0400 09/11 1600 09/11 0400 09/10 1600 09/10 0400 Intake Total 1896 2240 4003 1715 2589 741 Output Total 900 2000 3625 1600 4050 1200 Balance 996 240 378 115 1461 459 Intake, IV 816 1160 2260 1057 1622 611 Intake, Oral 0 0 Intake, Other 600 Intake, Tube 480 480 847 358 377 30 Feeding Intake, Tube 600 896 300 590 100 Irrigant Number 1 2 1 2 1 Bowel Movements Output, Urine 900 2000 3625 1600 4050 1200 Physical Exam: Gen - ill appearing HEENT - +ETT CV - RRR, no m/r/g Chest - clear mechanical breath sounds Abd - soft, NTND Ext - +edema, RLE erythema worsening Neuro - sedated Current Medications: Current Medications Sig/Jasvir Start time Last Medication Dose Route Stop Time Status Admin Acetaminophen 650 MG Q6P PRN 09/06 0345 AC PO Acetaminophen 1,000 MG Q6P PRN 09/06 0345 AC 09/11 IV 2111 Ampicillin Sodium/ 3,000 MG Q8H 09/07 1745 09/12 Sulbactam Sodium IV 0907 Sodium Chloride 100 ML Aspirin Buffered 81 MG DAILY 09/06 0900 09/12 PO 0811 Chlorhexidine 15 ML BID 09/11 0900 09/12 Gluconate PO 0811 Dextrose/Water 1,000 ML Q10H 09/10 1145 09/12 IV 1020 Folic Acid 1 MG DAILY 09/07 1023 09/12 PO 0811 Furosemide 60 MG ONCE ONE 09/12 0845 [place] 09/12 IV 09/12 0846 0855 Furosemide 60 MG ONCE ONE 09/11 1630 [place] 09/11 IV 09/11 1631 1610 Hydromorphone HCl 1 MG Q4P PRN 09/10 2215 09/12 IV 0317 Insulin Aspart 6 UNITS .STK-MED ONE 09/12 0442 [facility] 09/12 0443 Insulin Aspart 6 UNITS .STK-MED ONE 09/11 2358 [facility] 09/11 2359 Insulin Aspart 0 Q4H 09/10 1200 09/12 SC 1203 Insulin Detemir 15 UNITS BID 09/12 0900 09/12 SC 0811 Insulin Detemir 12 UNITS BID 09/11 0900 DC 09/11 SC 2111 Lorazepam 50 MG Q24H 09/09 0830 AC 09/12 Sodium Chloride 500 ML IV 0821 Metoprolol Tartrate 100 MG BID 09/11 0900 AC 09/12 PO 0811 Multivitamins 1 TAB DAILY 09/07 1023 AC 09/12 PO 0811 Pantoprazole Sodium 40 MG DAILY 09/09 0900 AC 09/12 IV 0811 Thiamine HCl 50 MG DAILY 09/07 1023 AC 09/12 PO 0811 Zinc Oxide 1 GATO TID PRN 09/11 1530 AC 09/12 TOP 0732 Results Pertinent Lab Results: Laboratory Tests 09/12 09/11 0430 0341 Chemistry Sodium (137 - 145 mmol/L) 147 H 148 H Potassium (3.5 - 5.1 mmol/L) 3.9 3.8 Chloride (98 - 107 mmol/L) 111 H 114 H Carbon Dioxide (22 - 30 mmol/L) 22 19 L Anion Gap (5 - 16) 14 16 BUN (9 - 20 mg/dL) 93 H 92 H Creatinine (0.7 - 1.2 mg/dL) 3.0 H 3.1 H Estimated GFR (>60 ml/min) 21 L 21 L Glucose (65 - 99 mg/dL) 253 H 292 H Calcium (8.4 - 10.2 mg/dL) 8.3 L 8.3 L Phosphorus (2.5 - 4.5 mg/dL) 5.6 H 4.7 H Magnesium (1.6 - 2.3 mg/dL) 1.6 1.9 Total Bilirubin (0.2 - 1.3 mg/dL) 0.9 1.1 AST (17 - 59 U/L) 61 H 100 H ALT (21 - 72 U/L) 62 79 H Albumin (3.5 - 5.0 g/dL) 2.3 L 2.2 L Hematology CBC w Diff NO MAN DIFF REQ NO MAN DIFF REQ WBC (4.8 - 10.8 /CUMM) 16.4 H 12.1 H RBC (4.70 - 6.10 /CUMM) 3.73 L 3.81 L Hgb (14.0 - 18.0 G/DL) 10.0 L 10.1 L Hct (42 - 52 %) 30.7 L 31.1 L MCV (80.0 - 94.0 FL) 82.4 81.6 MCH (27.0 - 31.0 PG) 26.8 L 26.6 L MCHC (33.0 - 37.0 G/DL) 32.5 L 32.6 L RDW (11.5 - 14.5 %) 19.8 H 20.2 H Plt Count (130 - 400 /CUMM) 84 L 58 L MPV (7.4 - 10.4 FL) 11.0 H 10.8 H Gran % (42.2 - 75.2 %) 79.8 H 80.6 H Lymphocytes % (20.5 - 51.1 %) 9.4 L 9.4 L Monocytes % (1.7 - 9.3 %) 8.9 7.8 Eosinophils % (0 - 5 %) 1.8 2.1 Basophils % (0.0 - 2.0 %) 0.1 0.1 Absolute Granulocytes (1.4 - 6.5 /CUMM) 13.1 H 9.7 H Absolute Lymphocytes (1.2 - 3.4 /CUMM) 1.5 1.1 L Absolute Monocytes (0.10 - 0.60 /CUMM) 1.5 H 0.9 H Absolute Eosinophils (0.0 - 0.7 /CUMM) 0.3 0.3 Absolute Basophils (0.0 - 0.2 /CUMM) 0 0 09/10 09/10 09/10 1213 0857 0415 Chemistry Sodium (137 - 145 mmol/L) 148 H 150 H Potassium (3.5 - 5.1 mmol/L) 3.4 L 3.5 Chloride (98 - 107 mmol/L) 114 H 114 H Carbon Dioxide (22 - 30 mmol/L) 19 L 19 L Anion Gap (5 - 16) 15 16 BUN (9 - 20 mg/dL) 92 H 103 *H Creatinine (0.7 - 1.2 mg/dL) 3.3 H 3.5 H Estimated GFR (>60 ml/min) 19 L 18 L Glucose (65 - 99 mg/dL) 292 H 236 H Calcium (8.4 - 10.2 mg/dL) 8.3 L 8.6 Phosphorus (2.5 - 4.5 mg/dL) 4.6 H 4.9 H Magnesium (1.6 - 2.3 mg/dL) 2.1 2.4 H Total Bilirubin (0.2 - 1.3 mg/dL) 1.4 H 1.6 H AST (17 - 59 U/L) 152 H 200 H ALT (21 - 72 U/L) 95 H 106 H Albumin (3.5 - 5.0 g/dL) 2.3 L 2.5 L Coagulation PT (9.4 - 12.5 SEC) 13.6 H INR (0.90 - 1.17) 1.24 H APTT (25 - 37 SEC) 28 Fibrinogen Activity (200 - 393 MG/DL) 894 H D-Dimer High Sensitivty (0 - 243 ng/ml) 3590 H Hematology CBC w Diff NO MAN DIFF REQ WBC (4.8 - 10.8 /CUMM) 12.0 H RBC (4.70 - 6.10 /CUMM) 4.36 L Hgb (14.0 - 18.0 G/DL) 11.4 L Hct (42 - 52 %) 35.4 L MCV (80.0 - 94.0 FL) 81.2 MCH (27.0 - 31.0 PG) 26.2 L MCHC (33.0 - 37.0 G/DL) 32.2 L RDW (11.5 - 14.5 %) 20.4 H Plt Count (130 - 400 /CUMM) 54 L MPV (7.4 - 10.4 FL) 9.8 Gran % (42.2 - 75.2 %) 78.6 H Lymphocytes % (20.5 - 51.1 %) 9.0 L Monocytes % (1.7 - 9.3 %) 10.0 H Eosinophils % (0 - 5 %) 2.1 Basophils % (0.0 - 2.0 %) 0.3 Absolute Granulocytes (1.4 - 6.5 /CUMM) 9.5 H Absolute Lymphocytes (1.2 - 3.4 /CUMM) 1.1 L Absolute Monocytes (0.10 - 0.60 /CUMM) 1.2 H Absolute Eosinophils (0.0 - 0.7 /CUMM) 0.3 Absolute Basophils (0.0 - 0.2 /CUMM) 0 Imaging/Other Studies: Chest X-ray 09/11 IMPRESSION: Suggestion of mild worsening of the patient's vascular congestive changes.
--- NOTE | 2017-09-12 14:45 | PN- Cardiology ---
Subjective Subjective: No new clinical changes. Remains intubated and sedated but arousable. No new cardiac issues. Rhythm remained stable in sinus rhythm. Objective Vital Signs and I&Os Vital Signs Date Time Temp Pulse Resp B/P B/P Pulse O2 O2 Flow FiO2 Mean Ox Delivery Rate 09/12 1410 30 09/12 1200 94 Ventilator 30% 09/12 1136 30 09/12 0831 30 09/12 0811 178/82 09/12 0800 99.0 88 23 178/82 96 Ventilator 30% 09/12 0800 96 Ventilator 30% 09/12 0549 30 09/12 0400 95 Ventilator 30% 09/12 0243 30 09/12 0000 95 Ventilator 30% 09/12 0000 100.9 86 23 124/80 95 Ventilator 30% 09/11 2356 30 09/11 2220 30 09/11 2155 101.0 09/11 2112 101.6 97 24 142/55 09/11 2111 101.6 09/11 2000 97 Nasal 30% Cannula 09/11 1922 30 09/11 1727 30 09/11 1600 93 Ventilator 30% 09/11 1600 99.6 88 22 140/60 92 Ventilator 30% Intake & Output 09/12 1600 09/12 0800 09/12 0000 09/11 1600 09/11 0800 09/11 0000 Intake Total 1896 2240 2046 1957 1715 Output Total 900 1999 2525 1100 1600 Balance 996 240 -479 857 115 Intake, IV 816 1160 1126 1134 1057 Intake, Oral 0 0 Intake, Other 600 Intake, Tube 480 480 414 433 358 Feeding Intake, Tube 600 506 390 300 Irrigant Number 1 1 1 1 Bowel Movements Output, Urine 900 1999 2525 1100 1600 Physical Exam: no acute distress on ventilator HEENT-PERRLA Neck-JVP unable to assess,no bruits Lungs-clear anteriorly Heart-S1S1 regular, 1/6 LELAND Abdomen-soft, not distended, BS+, no organomegaly Ext-1+ bilateral edema, no cyanosis neuro-intubated, on lorazepam-grossly non focal Vascular-good distal perfusion, 1+ pulses Current Medications: Current Medications Sig/Ajsvir Start time Last Medication Dose Route Stop Time Status Admin Acetaminophen 650 MG Q6P PRN 09/06 0345 AC PO Acetaminophen 1,000 MG Q6P PRN 09/06 0345 AC 09/11 IV 2111 Ampicillin Sodium/ 3,000 MG Q8H 09/07 1745 09/12 Sulbactam Sodium IV 0907 Sodium Chloride 100 ML Aspirin Buffered 81 MG DAILY 09/06 0900 AC 09/12 PO 0811 Chlorhexidine 15 ML BID 09/11 0900 09/12 Gluconate PO 0811 Dextrose/Water 1,000 ML Q10H 09/10 1145 09/12 IV 1020 Folic Acid 1 MG DAILY 09/07 1023 09/12 PO 0811 Furosemide 60 MG ONCE ONE 09/12 0845 CO 09/12 IV 09/12 0846 0855 Furosemide 60 MG ONCE ONE 09/11 1630 DC 09/11 IV 09/11 1631 1610 Hydromorphone HCl 1 MG Q4P PRN 09/10 2215 09/12 IV 0317 Insulin Aspart 6 UNITS .STK-MED ONE 09/12 0442 [facility] 09/12 0443 Insulin Aspart 6 UNITS .STK-MED ONE 09/11 2358 [facility] 09/11 2359 Insulin Aspart 0 Q4H 09/10 1200 09/12 [place] 1203 Insulin Detemir 15 UNITS BID 09/12 0900 09/12 SC 0811 Insulin Detemir 12 UNITS BID 09/11 0900 CO 09/11 [place] 2111 Lorazepam 50 MG Q24H 09/09 0830 09/12 Sodium Chloride 500 ML IV 0821 Magnesium Sulfate 1 GM ONCE ONE 09/12 1445 UNVr Dextrose/Water 100 ML IV 09/12 1844 Metoprolol Tartrate 100 MG BID 09/11 0900 09/12 PO 0811 Multivitamins 1 TAB DAILY 09/07 1023 09/12 PO 0811 Pantoprazole Sodium 40 MG DAILY 09/09 0900 09/12 IV 0811 Potassium Chloride 20 MEQ ONCE ONE 09/12 1445 UNVr PO 09/12 1446 Thiamine HCl 50 MG DAILY 09/07 1023 09/12 PO 0811 Zinc Oxide 1 GATO TID PRN 09/11 1530 09/12 TOP 0732 Results Last 48 Hrs of Labs/Mics: Laboratory Tests 09/12/17 0430: Anion Gap 14, Estimated GFR 21 L, Glucose 253 H, Calcium 8.3 L, Phosphorus 5.6 H, Magnesium 1.6, Total Bilirubin 0.9, AST 61 H, ALT 62, Albumin 2.3 L, CBC w Diff NO MAN DIFF REQ, RBC 3.73 L, MCV 82.4, MCH 26.8 L, MCHC 32.5 L, RDW 19.8 H, MPV 11.0 H, Gran % 79.8 H, Lymphocytes % 9.4 L, Monocytes % 8.9, Eosinophils % 1.8, Basophils % 0.1, Absolute Granulocytes 13.1 H, Absolute Lymphocytes 1.5, Absolute Monocytes 1.5 H, Absolute Eosinophils 0.3, Absolute Basophils 0, Complement C3 Pending, Complement C4 Pending 09/11/17 0341: Anion Gap 16, Estimated GFR 21 L, Glucose 292 H, Calcium 8.3 L, Phosphorus 4.7 H, Magnesium 1.9, Total Bilirubin 1.1, AST 100 H, ALT 79 H, Albumin 2.2 L, CBC w Diff NO MAN DIFF REQ, RBC 3.81 L, MCV 81.6, MCH 26.6 L, MCHC 32.6 L, RDW 20.2 H, MPV 10.8 H, Gran % 80.6 H, Lymphocytes % 9.4 L, Monocytes % 7.8, Eosinophils % 2.1, Basophils % 0.1, Absolute Granulocytes 9.7 H, Absolute Lymphocytes 1.1 L, Absolute Monocytes 0.9 H, Absolute Eosinophils 0.3, Absolute Basophils 0 Assessment/Plan Assessment/Plan Assessment: 1. Acute neurologic changes-stable and improved 2. Atrial fibrillation of unclear duration with elevated ventricular rate- currently maintaining sinus rhythm with no further arrhythmia 3. Acute hypoxemic/hypercapnic respiratory failure, likely related to CHF with elevated proBNP 4. Acute on chronic renal insufficiency 5. Lactic acidosis 6. Abnormal liver function tests 7. Elevated troponin 8. Thrombocytopenia-platelet count 84,000 today 9. Group B beta strep bacteremia; source unclear Recommendations: -Continue as per the ICU/critical care team -Continue IV antibiotics as per ID -Continue IV Cardizem for now -Follow-up head CT pending today. -In view of the fact that today was the first day the patient's platelet count was over 80,000, I see no urgency to start anticoagulation immediately since the patient remains in sinus rhythm and his recent JESUS showed no evidence of any atrial appendage thrombus and normal appendage contractility. -Once the platelet count is stable, consider starting IV heparin for the first 24-48 hours for monitoring of neurologic status, etc. -Eventual transition to oral Eliquis as per Dr. Kruger -And Dr. Kruger's absence, Dr. Bowers will be covering for him starting on Friday. Continue telemetry? Yes
[2017-09-12 16:00] VITALS: BP 151/66
--- NOTE | 2017-09-12 16:14 | CT SCAN REPORT ---
EXAMINATION: CT LOWER EXTREMITY WITHOUT CONTRAST, RIGHT CLINICAL INFORMATION: Increased pain and swelling. COMPARISON: 09/07/2017 TECHNIQUE: Axial imaging. Sagittal and coronal reconstructions. FINDINGS: Redemonstrated is advanced arthropathy throughout the midfoot. There is extensive destruction of the navicular, with multiple displaced osseous fragments. This includes multiple osseous fragments displaced dorsally, an osseous fragment displaced along the plantar lateral aspect of the distal talus, with flattening and depression of the articular surface. There is flattening of the dorsal articular surface of the talar head as well. Extensive subchondral lucencies which may reflect erosions seen throughout the midfoot, in particular, involving the cuneiforms, bases of the 2nd-4th metatarsals. The bony findings appear relatively similar as compared to previous. There is interval increase in the extensive diffuse subcutaneous edema and soft tissue swelling. No loculated fluid collections identified. There is atrophy of the intrinsic muscles of the foot. Redemonstrated is a calcaneal spur, with thickening of the proximal plantar fascia. IMPRESSION: Interval increase in the extensive diffuse soft tissue swelling and subcutaneous edema. No loculated fluid collections are identified in this noncontrast study. The findings could represent cellulitis in the appropriate clinical circumstance. 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 Multiple lucencies/erosions in the midfoot. These findings could be related to Charcot arthropathy, inflammatory arthropathy, or could represent septic arthritis/osteomyelitis superimposed on more chronic changes. Clinically correlate, correlate with blood work, further evaluation with WBC bone scan can be obtained as clinically warranted.
--- NOTE | 2017-09-12 17:21 | Cons- Podiatry ---
General Information and HPI Consulting Request Date of Consult: 09/12/17 Requested By: Yordy Anand MD Reason for Consult: r/o abscess, right foot Source of Information: family Exam Limitations: unable to give history, not alert/orientated, clinical condition History of Present Illness: This is a 61-year-old male who is seen and evaluated in the intensive care unit. He was admitted 1 week ago for rule out CVA and possible sepsis. Podiatry is consulted for swelling and redness of the right foot to rule out abscess as a source of sepsis. He was intubated and transferred to the intensive care unit 2 days later. He has had multiple positive blood cultures for group B strep, and in addition to his right foot findings, he was also found to have endocarditis on a transesophageal echocardiogram. He has also had 2 CAT scans of this foot prior to my consultation, neither of which demonstrated a loculated collection, both of which demonstrated advanced Charcot neuroarthropathy about the midtarsal joint. His most recent fever was 101F from 9 PM last night. The primary team reported to me upon consultation that interventional radiology had previously performed an aspiration in the area and drained 15 mL of a dark brown fluid, which was cultured and also found to be positive for group B strep. He is currently intubated and unable to give history due to his overall condition, but fortunately he is accompanied by his at bedside at the time of my exam who gave me most of his history. She reported to me that he had previously seen a song lyricist for swelling in the right foot about 2 weeks ago and that it has gradually worsened since, that the initial suspicion of this song lyricist was for gout.. She reports he has no history of plantar ulceration. She reports that he had facial droop prior to admission. Allergies/Medications Allergies: Coded Allergies: No Known Allergies (02/19/16) Home Med List: Aspirin (Aspirin*) 81 MG TAB.CHEW 1 TAB PO DAILY HEART HEALTH (Reported) Atorvastatin Calcium 80 MG TABLET 1 TAB PO 1800 CHOLESTEROL (Reported) Bromocriptine Mesylate (Cycloset) 0.8 MG TABLET 1 TAB PO AD DM (Reported) Clopidogrel Bisulfate (Plavix) 75 MG TABLET 1 TAB PO DAILY HEART Please take as prescribed. Colchicine 0.6 MG TABLET 1 TAB PO BID GOUT (Reported) Empagliflozin (Jardiance) 25 MG TABLET 1 TAB PO DAILY DIABETES (Reported) Famotidine 20 MG TABLET 1 TAB PO BID GI (Reported) Insulin Aspart, Recombinant (Novolog Flexpen) 100 UNIT/ML INSULN.PEN DM ( Reported) Insulin Glargine,Hum.rec.anlog (Basaglar Kwikpen U-100) 100 UNIT/ML (3 ML) INSULN.PEN 20 UNITS SC QAM DM (Reported) Magnesium Oxide 400 MG TABLET 1 TAB PO BID SUPPLEMENT (Reported) Melatonin 3 MG TABLET 2 TAB PO QPM SLEEP (Reported) Metformin HCl 1,000 MG TABLET 1 TAB PO BID DIABETES (Reported) Metoprolol Tartrate 50 MG TABLET 1 TAB PO BID HEART/BP (Reported) Pantoprazole Sodium (Protonix) 40 MG TABLET.DR 1 TAB PO BID ULCER Please take as prescribed. Suvorexant (Belsomra) 20 MG TABLET 1 TAB PO QPM SLEEP (Reported) Valsartan 320 MG TABLET 1 TAB PO DAILY HEART (Reported) Current Medications: Current Medications Sig/Jasvir Start time Last Medication Dose Route Stop Time Status Admin Acetaminophen 650 MG Q6P PRN 09/06 0345 AC PO Acetaminophen 1,000 MG Q6P PRN 09/06 0345 09/11 IV 2111 Ampicillin Sodium/ 3,000 MG Q8H 09/07 1745 09/12 Sulbactam Sodium IV 1714 Sodium Chloride 100 ML Aspirin Buffered 81 MG DAILY 09/06 0900 AC 09/12 PO 0811 Chlorhexidine 15 ML BID 09/11 0900 09/12 Gluconate PO 0811 Dextrose/Water 1,000 ML Q10H 09/10 1145 09/12 IV 1020 Folic Acid 1 MG DAILY 09/07 1023 09/12 PO 0811 Furosemide 60 MG ONCE ONE 09/12 0845 IA 09/12 IV 09/12 0846 0855 Hydromorphone HCl 1 MG Q4P PRN 09/10 2215 09/12 IV 0317 Insulin Aspart 6 UNITS .STK-MED ONE 09/12 0442 [facility] 09/12 0443 Insulin Aspart 6 UNITS .STK-MED ONE 09/11 2358 [facility] 09/11 2359 Insulin Aspart 0 Q4H 09/10 1200 09/12 SC 1612 Insulin Detemir 15 UNITS BID 09/12 0900 09/12 SC 0811 Insulin Detemir 12 UNITS BID 09/11 0900 DC 09/11 MS 2111 Lorazepam 50 MG Q24H 09/09 0830 AC 09/12 Sodium Chloride 500 ML IV 0821 Magnesium Sulfate 1 GM ONCE ONE 09/12 1445 AC 09/12 Dextrose/Water 100 ML IV 09/12 1844 1505 Metoprolol Tartrate 100 MG BID 09/11 0900 AC 09/12 PO 0811 Multivitamins 1 TAB DAILY 09/07 1023 AC 09/12 PO 0811 Pantoprazole Sodium 40 MG DAILY 09/09 0900 AC 09/12 IV 0811 Potassium Chloride 20 MEQ ONCE ONE 09/12 1445 DC 09/12 PO 09/12 1446 1504 Thiamine HCl 50 MG DAILY 09/07 1023 AC 09/12 PO 0811 Vancomycin HCl 125 MG Q6 09/12 1800 AC PO Zinc Oxide 1 GATO TID PRN 09/11 1530 AC 09/12 TOP 0732 Past History Medical History Blood Transfusion Hx: Yes Neurological: NONE EENT: hearing loss Cardiovascular: hypertension, hyperlipidemia, myocardial infarction Respiratory: obstructive sleep apnea Gastrointestinal: GERD Hepatic: cirrhosis Renal: NONE Musculoskeletal: gout Psychiatric: NONE Endocrine: diabetes Blood Disorders: NONE Cancer(s): prostate cancer 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 Home Smoking Status: Never Smoked ETOH Use: occasional use Review of Systems Review of Systems: The patient was unable to give a review of systems due to his deteriorated overall condition Exam & Diagnostic Data Vital Signs and I&O Vital Signs Date Time Temp Pulse Resp B/P B/P Pulse O2 O2 Flow FiO2 Mean Ox Delivery Rate 09/12 1626 30 09/12 1600 97.7 82 18 151/66 98 Ventilator 30% 09/12 1600 98 Ventilator 30% 09/12 1410 30 09/12 1200 94 Ventilator 30% 09/12 1136 30 09/12 0831 30 09/12 0811 178/82 09/12 0800 99.0 88 23 178/82 96 Ventilator 30% 09/12 0800 96 Ventilator 30% 09/12 0549 30 09/12 0400 95 Ventilator 30% 09/12 0243 30 09/12 0000 95 Ventilator 30% 09/12 0000 100.9 86 23 124/80 95 Ventilator 30% 09/11 2356 30 09/11 2220 30 09/11 2155 101.0 09/12 2111 101.6 97 24 142/55 09/11 2110 101.6 09/12 1999 97 Nasal 30% Cannula 09/11 1922 30 09/11 1727 30 Intake & Output 09/12 1600 09/12 0800 09/12 0000 09/11 0809/11 0000 Intake Total 2280 1896 2240 2046 1957 1715 Output Total 9190 162 8322 2525 1100 1600 Balance 380 996 240 -479 857 115 Intake, IV 1058 365 8796 1126 1134 1057 Intake, Oral 0 0 Intake, Other 600 Intake, Tube 358 480 480 414 433 358 Feeding Intake, Tube 725 600 506 390 300 Irrigant Number 4 1 1 1 1 Bowel Movements Output, Urine 7484 193 9757 2525 1100 1600 Physical Exam: The patient has palpable pedal pulses on the left foot, his pulses on the right foot are nonpalpable secondary to +4 pitting edema. He has a normal temperature gradient in the left foot warm to cool proximal to distal, and a decreased temperature gradient in the right lower extremity with calor over the anterior ankle dorsal hindfoot and midfoot. The patient is unable to have a peripheral neuro exam secondary to his deteriorating condition. He has multiple superficial lesions on the right hindfoot and ankle: #1 a superficial stage II decubitus lesion over the right lateral malleolus, #2 a pair of hemorrhagic bullous lesions on the anteromedial and anterolateral right ankle, #3 another superficial bullous lesion over the styloid process of the right foot. There is some faint ecchymosis dorsally over the right hindfoot and midfoot. There is no malodor, there is no plantar ulceration, there is no crepitus, there is no shagufta necrosis of tissue. Last 24 Hours of Labs: Laboratory Tests 09/12 0430 Chemistry Sodium (137 - 145 mmol/L) 147 H Potassium (3.5 - 5.1 mmol/L) 3.9 Chloride (98 - 107 mmol/L) 111 H Carbon Dioxide (22 - 30 mmol/L) 22 Anion Gap (5 - 16) 14 BUN (9 - 20 mg/dL) 93 H Creatinine (0.7 - 1.2 mg/dL) 3.0 H Estimated GFR (>60 ml/min) 21 L Glucose (65 - 99 mg/dL) 253 H Calcium (8.4 - 10.2 mg/dL) 8.3 L Phosphorus (2.5 - 4.5 mg/dL) 5.6 H Magnesium (1.6 - 2.3 mg/dL) 1.6 Total Bilirubin (0.2 - 1.3 mg/dL) 0.9 AST (17 - 59 U/L) 61 H ALT (21 - 72 U/L) 62 Albumin (3.5 - 5.0 g/dL) 2.3 L Hematology CBC w Diff NO MAN DIFF REQ WBC (4.8 - 10.8 /CUMM) 16.4 H RBC (4.70 - 6.10 /CUMM) 3.73 L Hgb (14.0 - 18.0 G/DL) 10.0 L Hct (42 - 52 %) 30.7 L MCV (80.0 - 94.0 FL) 82.4 MCH (27.0 - 31.0 PG) 26.8 L MCHC (33.0 - 37.0 G/DL) 32.5 L RDW (11.5 - 14.5 %) 19.8 H Plt Count (130 - 400 /CUMM) 84 L MPV (7.4 - 10.4 FL) 11.0 H Gran % (42.2 - 75.2 %) 79.8 H Lymphocytes % (20.5 - 51.1 %) 9.4 L Monocytes % (1.7 - 9.3 %) 8.9 Eosinophils % (0 - 5 %) 1.8 Basophils % (0.0 - 2.0 %) 0.1 Absolute Granulocytes (1.4 - 6.5 /CUMM) 13.1 H Absolute Lymphocytes (1.2 - 3.4 /CUMM) 1.5 Absolute Monocytes (0.10 - 0.60 /CUMM) 1.5 H Absolute Eosinophils (0.0 - 0.7 /CUMM) 0.3 Absolute Basophils (0.0 - 0.2 /CUMM) 0 Immunology Complement C3 Pending Complement C4 Pending Imaging Results: The patient had a CAT scan earlier today Assessment/Plan Assessment/Plan 61-year-old male with type 2 diabetes, Charcot neuroarthropathy about the right talonavicular joint, active sepsis, group B strep bacteremia, group B strep endocarditis, with likely dorsal abscess of the right midfoot and hindfoot, rule out osteomyelitis. Patient was seen and evaluated at bedside accompanied by his After informed consent was obtained for his on the patient's behalf, a bedside incision and drainage was performed on the dorsum of the right foot, which yielded a small amount of devitalized tissue that was sent as a specimen for microbiology, and also yielded approximately 8 mL of purulence lateral to the stab as well as about 40-50 mL of serosanguineous drainage. The details of this will be documented in a separate minor procedure note. While the patient does have newly diagnosed Charcot neuroarthropathy, any erythema or swelling associated with this should have subsided with the mechanical offloading of the limb through lying in bed in the intensive care unit for several days, and I am not suspicious of this is the source for his current changes. We also did not encounter any tophi during the incision and drainage, which rules out my suspicion of a gouty arthropathy as originally suspected prior to his admission by his former song lyricist. As far as infectious changes go, the patient did have a moderately sized subcutaneous fluid collection which was drained. Unfortunately, his Charcot changes radiographically mask any ongoing acute osteomyelitis underneath this, and at this time he is not stable for an operative bone biopsy to rule this out. I will continue to irrigate and pack the stab incision over the weekend, and we' ll convert to a dry dressing if there is no further drainage. He will be considered for more substantial debridement if he does not improve. Problem List: 1. Charcot's arthropathy 2. Sepsis due to group B Streptococcus Copies To: Jeffery GARCIA,Xavier Campo. Consult Acknowledgment - Thank you for your consult request.
--- NOTE | 2017-09-12 17:36 | Procedure ---
Minor Surgical Procedure Note Date of Procedure: 09/12/17 Procedure Note: Surgeon: Etienne Ojeda DPM Preoperative diagnosis: Rule out abscess dorsal right foot Postoperative diagnosis: Rule out abscess dorsal right foot Procedure: Bedside incision and drainage of the right foot under local anesthesia Anesthesia: 10 mL of 1% lidocaine plain in the form of a V block around the stab incision Hemostasis: None Estimated blood loss: 20 mL Complications: None Prior to the procedure informed consent was obtained from the patient's on the patient's behalf and writing with the patient's covering nurse is a witness. The patient's nurse also performed a preliminary and formal timeout. The right foot was prepped with Betadine solution, and draped with the contents of the sterile laceration tray. Using a sterile disposable #10 blade a 1 cm stab incision was made on the dorsum of the right foot at the apex of the patient's localized swelling and calor consistent with the patient's prior aspiration procedure. A sterile straight hemostat was then inserted to probe the surrounding soft tissue planes, and all of the dorsal tissue planes were aggressively expressed manually. By and large the majority of the drainage was serosanguineous, however directly lateral to the stab incision a small yellow- brown fluid collection was identified and expressed lateral to medial through the stab incision. A small piece of devitalized subcutaneous tissue was also identified through the probing with a hemostat, and this was excised and sent separately as a deep tissue specimen for culture and sensitivity. The stab incision was then copiously irrigated with several sterile saline flushes, and packed with sterile 1 inch plain packing. A well-padded dry sterile dressing was then placed on the right foot consisting of multiple fluff gauze, 1 roll of Kerlix, and a sterile 4 inch Nico bandage. The patient appeared to tolerate the procedure well as best could be evaluated while intubated and sedated. After the procedure, I reconnected with the patient's in detail my findings. The patient will be seen and evaluated on a daily basis for further irrigation and packing until he is no longer draining. We will continue to follow up the infectious disease consultation and other positive sources of leukocytosis and sepsis. The patient continues not to improve he will be considered for more substantial procedures.
[2017-09-13] VITALS: BP 140/60
[2017-09-13 05:29] LABS: ABSOLUTE BASOPHIL COUNT 0 /CUMM (0.0-0.2); ABSOLUTE EOSINOPHIL COUNT 0.2 /CUMM (0.0-0.7); ABSOLUTE GRANULOCYTE CT 12.7 /CUMM (1.4-6.5); ABSOLUTE LYMPH COUNT 1.5 /CUMM (1.2-3.4); BASOPHIL % 0.1 % (0.0-2.0); EOSINOPHIL % 1.1 % (0-5); GRANULOCYTE % 82.5 % (42.2-75.2); HEMATOCRIT 28.3 % (42-52); MEAN CORPUSCULAR HGB CONC 32.7 G/DL (33.0-37.0); MEAN CORPUSCULAR VOLUME 82.7 FL (80.0-94.0); MEAN PLATELET VOLUME 12.5 FL (7.4-10.4); PLATELET COUNT 106 /CUMM (130-400); RBC DISTRIBUTION WIDTH 19.4 % (11.5-14.5); RED BLOOD CELL CT 3.42 /CUMM (4.70-6.10); WHITE BLOOD CELL COUNT 15.4 /CUMM (4.8-10.8)
[2017-09-13 08:00] VITALS: BP 120/60
--- NOTE | 2017-09-13 08:25 | PN- Resident CRCU ---
Subjective HPI/CRCU Issues: #Sepsis #Bacteremia (Group B STREP) #Fevers #PAF #endocarditis (?) #Elevated blood glucose #Intubated (day 6) 24 Hour Events: pt seen and examined at bedside, by his side. He remains to be sedated and intubated. Dressing over R foot, s/p R foot I&D POD #1. He is currently afebrile. Objective Vital Signs & I&O Last 8 Hrs of Vitals and I&O: Intake & Output 09/13 1600 09/13 0800 09/13 0000 Intake Total 1679 1911 Output Total 765 1335 Balance 914 576 Intake, IV 909 851 Intake, Tube 445 400 Feeding Intake, Tube 325 660 Irrigant Output, Stool 150 200 Output, Urine 615 1135 Laboratory Tests 09/13/17 0345: Anion Gap 14, Estimated GFR 21 L, Glucose 293 H, Calcium 8.1 L, Phosphorus 5.6 H, Magnesium 1.7, Total Bilirubin 0.9, AST 43, ALT 47, Albumin 2.2 L, CBC w Diff NO MAN DIFF REQ, RBC 3.42 L, MCV 82.7, MCH 27.0, MCHC 32.7 L, RDW 19.4 H, MPV 12.5 H, Gran % 82.5 H, Lymphocytes % 9.5 L, Monocytes % 6.8, Eosinophils % 1.1, Basophils % 0.1, Absolute Granulocytes 12.7 H, Absolute Lymphocytes 1.5, Absolute Monocytes 1.0 H, Absolute Eosinophils 0.2, Absolute Basophils 0 Microbiology 09/12 1655 EXTREMITIE: Culture & Sensitivity - RES BETA STREP GROUP B 09/12 165 EXTREMITIE: Gram Stain - RES 09/12 1435 STOOL: Clostridium difficile Toxin A & B - RECD Vital Signs Date Time Temp Pulse Resp B/P B/P Pulse O2 O2 Flow FiO2 Mean Ox Delivery Rate 09/13 0934 30 09/13 0853 78 140/66 09/13 0800 98 Ventilator 30% 09/13 0800 97.8 76 18 120/60 98 Ventilator 30% 09/13 0620 30 09/13 0407 30 09/13 0400 96 Ventilator 30% 09/13 0130 98.4 09/13 0026 30 09/13 0014 101.5 09/13 0000 101.5 84 24 140/60 93 Ventilator 30% 09/13 0000 93 Ventilator 30% 09/12 2204 30 09/12 2151 86 20 121/54 09/12 2000 98 Ventilator 30% 09/12 1919 30 09/12 1626 30 09/12 1600 97.7 82 18 151/66 98 Ventilator 30% 09/12 1600 98 Ventilator 30% 09/12 1410 30 09/12 1200 94 Ventilator 30% Intake & Output 09/13 1600 09/13 0800 09/13 0000 Intake Total 1679 1911 Output Total 765 1335 Balance 914 576 Intake, IV 909 851 Intake, Tube 445 400 Feeding Intake, Tube 325 660 Irrigant Output, Stool 150 200 Output, Urine 615 1135 Exam General Appearance: sedated, intubated Head: atraumatic, normal appearance Neck: normal inspection, supple Respiratory: chest non-tender, rhonchi Cardiovascular: tachycardia, irregularly irregular Gastrointestinal: normal bowel sounds, soft, non-tender Extremities: R foot in dressing noted. Intact Cranial Nerves: not assessed - pt sedated Current Medications: Current Medications Sig/Jasvir Start time Last Medication Dose Route Stop Time Status Admin Acetaminophen 1,000 MG .STK-MED ONE 09/12 2359 DC IV 09/13 0000 Acetaminophen 650 MG Q6P PRN 09/06 0345 AC PO Acetaminophen 1,000 MG Q6P PRN 09/06 0345 09/13 IV 0014 Ampicillin Sodium/ 3,000 MG Q8H 09/07 1745 09/13 Sulbactam Sodium IV 0854 Sodium Chloride 100 ML Aspirin Buffered 81 MG DAILY 09/06 0900 09/13 PO 0852 Chlorhexidine 15 ML BID 09/11 0900 AC 09/13 Gluconate PO 0854 Dextrose/Water 1,000 ML Q10H 09/10 1145 DC 09/13 IV 0756 Fentanyl Citrate 50 MCG ONCE ONE 09/13 1000 DC 09/13 IV 09/13 1001 0956 Folic Acid 1 MG DAILY 09/07 1023 09/13 PO 0852 Furosemide 60 MG ONCE ONE 09/13 1000 DC IV 09/13 1001 Furosemide 40 MG ONCE ONE 09/13 1000 DC 09/13 IV 09/13 1001 1056 Hydromorphone HCl 1 MG Q4P PRN 09/10 2215 09/13 IV 0044 Insulin Aspart 0 Q4H 09/10 1200 DC 09/13 SC 0838 Insulin Detemir 18 UNITS BID 09/13 2100 DC 09/13 AR 0914 Insulin Detemir 15 UNITS BID 09/12 0900 DC 09/12 AR 2152 Insulin Human Regular 100 UNIT Q24H 09/13 1100 AC Sodium Chloride 100 ML IV Lidocaine 20 ML .STK-MED ONE 09/12 1617 DC IA 09/12 1618 Lorazepam 2 MG ONE ONE 09/13 1045 DC 09/13 IV 09/13 1046 1042 Lorazepam 50 MG Q24H 09/09 0830 AC 09/12 Sodium Chloride 500 ML IV 0821 Magnesium Sulfate 1 GM ONCE ONE 09/13 0730 DC 09/13 Dextrose/Water 100 ML IV 09/13 1129 0851 Magnesium Sulfate 1 GM ONCE ONE 09/12 1445 DC 09/12 Dextrose/Water 100 ML IV 09/12 1844 1505 Metoprolol Tartrate 100 MG BID 09/11 0900 AC 09/13 PO 0853 Multivitamins 1 TAB DAILY 09/07 1023 AC 09/13 PO 0853 Pantoprazole Sodium 40 MG DAILY 09/09 0900 AC 09/13 IV 0852 Potassium Chloride 20 MEQ ONCE ONE 09/13 0730 DC 09/13 PO 09/13 0731 0851 Potassium Chloride 20 MEQ ONCE ONE 09/12 1445 DC 09/12 PO 09/12 1446 1504 Thiamine HCl 50 MG DAILY 09/07 1023 AC 09/13 PO 0852 Vancomycin HCl 125 MG Q6 09/12 1800 AC 09/13 PO 0530 Zinc Oxide 1 GATO TID PRN 09/11 1530 AC 09/12 TOP 0732 Impression/Plan Impression/Problem List Impression: Assessment: 1. Acute Hypoxemic Respiratory Failure s/p intubation (day #6) 2. Group B strep bacteremia 3. Endocarditis 3. Atrial Fibrilliation with RVR - now in NSR 4.DEMETRIO 5. Evolving lacunar infarct 6 Elevated Troponins, type II TX, resolved 7.Charcot athropathy 8.Increased swellling/inflammation of right foot s/p I&D day # 1 9.Thrombocytopenia most likely 2/2 sepsis, likely DIC 10.Uncontrolled blood sugars 11.Hypernatremia, resolved 12. Increased lose stools more than 4/day, p/b c diff Plan * Continue monitoring in ICU * Continue on mechanical ventilation with AC with VT is of 550, PEEP of 5, respiratory rate of 20, current FiO2 is decreased now it around 35%. * Currently on IV Unasyn (day 8). * F/u c diff toxin * Tube feeds now on Glucerna at 60cc/hr. Endo consulted - pt will be started on insulin drip with glucose target of 140-180 mg/dL, q1 bedside glucose monitoring and appropiate titration with non DKA hyperglycemia scale. * Continue OG tube for meds administration * Continue to hold off Atorvastatin 80mg -transaminitis resolving * DEMETRIO stable. * Continue 300mls q6h free water in the context of hypernatremia. * IV Lasix 60mg twice a day to encourage negative fluid balance * Monitor thrombocytopenia. S/p 2 units. Improving, latest 104. Started on hep subQ * Hold off on APIXABAN for now. PLT have been consistently above 80,[address] head is unremarkable for any hemorrhagic transformation of the lacunar strokes. * Podiatry is following - bedside I&D on 09/12. Cultures growing Beta strep group B. Will continue to monitor. This is most likely the source of patient's bacteremia and endocarditis will therefore require intervention. * Diet: Glucerna @ 60cc/hr * DVT Prophylaxis: ALPS + hep subQ * Code: Full Code Problem List: 1. DEMETRIO (acute kidney injury) 2. CVA (cerebral vascular accident) 3. Bacteremia 4. Endocarditis 5. Charcot's arthropathy Pain Ratin (not assessed, pt sedated) Tomorrow's Labs & Rationales: cbc cxr icu lab bundle Plan DVT/Prophylaxis: mechanical
--- NOTE | 2017-09-13 10:46 | PN- CRCU ---
Subjective HPI/Critical Care Issues: Remains intubated and restless PT is sedated Continues to be febrile S/p OR for the foot yesterday Objective Current Medications: Current Medications Sig/Jasvir Start time Last Medication Dose Route Stop Time Status Admin Acetaminophen 1,000 MG .STK-MED ONE 09/12 2359 DC IV 09/13 0000 Acetaminophen 650 MG Q6P PRN 09/06 0345 AC PO Acetaminophen 1,000 MG Q6P PRN 09/06 0345 AC 09/13 IV 0014 Ampicillin Sodium/ 3,000 MG Q8H 09/07 1745 AC 09/13 Sulbactam Sodium IV 0854 Sodium Chloride 100 ML Aspirin Buffered 81 MG DAILY 09/06 09 AC 09/13 PO 0852 Chlorhexidine 15 ML BID 09/11 09 AC 09/13 Gluconate PO 0854 Dextrose/Water 1,000 ML Q10H 09/10 1145 DC 09/13 IV 0756 Fentanyl Citrate 50 MCG ONCE ONE 09/13 1000 DC 09/13 IV 09/13 1001 0956 Folic Acid 1 MG DAILY 09/07 1023 09/13 PO 0852 Furosemide 60 MG ONCE ONE 09/13 1000 DC IV 09/13 1001 Furosemide 40 MG ONCE ONE 09/13 1000 DC IV 09/13 1001 Hydromorphone HCl 1 MG Q4P PRN 09/10 2215 AC 09/13 IV 0044 Insulin Aspart 0 Q4H 09/10 1200 09/13 SC 0838 Insulin Detemir 18 UNITS BID 09/13 2100 AC 09/13 SC 0914 Insulin Detemir 15 UNITS BID 09/12 0900 DC 09/12 [place] 2152 Lidocaine 20 ML .STK-MED ONE 09/12 1617 DC IA 09/12 1618 Lorazepam 50 MG Q24H 09/09 0830 09/12 Sodium Chloride 500 ML IV 0821 Magnesium Sulfate 1 GM ONCE ONE 09/13 0730 AC 09/13 Dextrose/Water 100 ML IV 09/13 1129 0851 Magnesium Sulfate 1 GM ONCE ONE 09/12 1445 DC 09/12 Dextrose/Water 100 ML IV 09/12 1844 1505 Metoprolol Tartrate 100 MG BID 09/11 0900 AC 09/13 PO 0853 Multivitamins 1 TAB DAILY 09/07 1023 09/13 PO 0853 Pantoprazole Sodium 40 MG DAILY 09/09 0900 09/13 IV 0852 Potassium Chloride 20 MEQ ONCE ONE 09/13 0730 DC 09/13 PO 09/13 0731 0851 Potassium Chloride 20 MEQ ONCE ONE 09/12 1445 DC 09/12 PO 09/12 1446 1504 Thiamine HCl 50 MG DAILY 09/07 1023 AC 09/13 PO 0852 Vancomycin HCl 125 MG Q6 09/12 1800 AC 09/13 PO 0530 Zinc Oxide 1 GATO TID PRN 09/11 1530 AC 09/12 TOP 0732 Vital Signs & I&O Last 24 Hrs of Vitals and I&O: Vital Signs Date Time Temp Pulse Resp B/P B/P Pulse O2 O2 Flow FiO2 Mean Ox Delivery Rate 09/13 0934 30 09/13 0853 78 140/66 09/13 0620 30 09/13 0407 30 09/13 0400 96 Ventilator 30% 09/13 0130 98.4 09/13 0026 30 09/13 0014 101.5 09/13 0000 101.5 84 24 140/60 93 Ventilator 30% 09/13 0000 93 Ventilator 30% 09/12 2204 30 09/12 2151 86 20 121/54 09/12 2000 98 Ventilator 30% 09/12 1919 30 09/12 1626 30 09/12 1600 97.7 82 18 151/66 98 Ventilator 30% 09/12 1600 98 Ventilator 30% 09/12 1410 30 09/12 1200 94 Ventilator 30% 09/12 1136 30 Intake & Output 09/13 1600 09/13 0800 09/13 0000 Intake Total 1679 1911 Output Total 765 1335 Balance 914 576 Intake, IV 909 851 Intake, Tube 445 400 Feeding Intake, Tube 325 660 Irrigant Output, Stool 150 200 Output, Urine 615 1135 Impression/Plan Impression/Plan Impression/Plan: SIGNIFICANT DATA Creatinine continues to be elevated at 3.1 anion gap is normal last lactic acid was few days ago which was unremarkable phosphorus continues to be high his last cholesterol was significantly low bilirubin normal alk phos is slightly elevated few days ago Previous troponin was 3.5 on the his A1c was significantly elevated few days ago ProBNP was high White count 15 Hemoglobin is 9.2 which is reduced since admission Platelets have improved from 84-106 86 2% granulocytes last INR was 1.24 His cultures strep B before extremities showed strep B culture from yesterday pending Last echocardiogram showed 55% ejection fraction possible vegetation on the anterior mitral leaflet General Appearance: Restless, mild distress, obese,sedated Ears, Nose, Throat: ET tube in place, dry blood on lips Respiratory: chest non-tender, no respiratory distress, rhonchi, ventilator noise Cardiovascular: tachycardia, irregularly irregular Gastrointestinal: non-tender, no organomegaly, abnormal bowel sounds (hypoactive ), distention Extremities: Bilateral lower extremity, 3+ in R, 1+ in L, right foot with dressing in place. Neurologic/Psych: sedated Skin: warm/dry CT lower ext IMPRESSION: Interval increase in the extensive diffuse soft tissue swelling and subcutaneous edema. No loculated fluid collections are identified in this noncontrast study. The findings could represent cellulitis in the appropriate clinical circumstance. 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 Multiple lucencies/erosions in the midfoot. These findings could be related to Charcot arthropathy, inflammatory arthropathy, or could represent septic arthritis/osteomyelitis superimposed on more chronic changes. Clinically correlate, correlate with blood work, further evaluation with WBC bone scan can be obtained as clinically warranted. IMPRESSION This is a gentleman with diabetes, hypertension, coronary artery disease with previous [place], CABG, previous AICD and pacemaker, history of prostate cancer with TURP, cirrhosis history, recurrent cellulitis of the left thigh and now has status post right great toe debridement came into the hospital with slurred speech left facial droop for few days. His CT of the head did show suggestion of a stroke and his JESUS is suggestive of an endocarditis on the mitral valve. He has had strep B sepsis. Since then he has been intubated sedated. 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 difficile Cirrhosis of the liver RECOMMENDATIONS Continue mechanical ventilator Gentle sedation Sugar control IV fluids per nephrology Tube feeding Abx per ID Cont other meds WIll follow Pt is critically ill tts 40 mins discussed with the
--- NOTE | 2017-09-13 10:58 | PN- Infect Dx ---
Subjective Subjective: Febrile past 24 h; Tmax 101.5F. Rectal tuv\\be in place. SBT in progress. Review of Systems Comments: 12 points reviewed as noted, otherwise negative. Objective Last 24 Hrs of Vital Signs/I&O Vital Signs Date Time Temp Pulse Resp B/P B/P Pulse O2 O2 Flow FiO2 Mean Ox Delivery Rate 09/13 0934 30 09/13 0853 78 140/66 09/13 0620 30 09/13 0407 30 09/13 0400 96 Ventilator 30% 09/13 0130 98.4 09/13 0026 30 09/13 0014 101.5 09/13 0000 101.5 84 24 140/60 93 Ventilator 30% 09/13 0000 93 Ventilator 30% 09/12 2204 30 09/12 2151 86 20 121/54 09/12 2000 98 Ventilator 30% 09/12 1919 30 09/12 1626 30 09/12 1600 97.7 82 18 151/66 98 Ventilator 30% 09/12 1600 98 Ventilator 30% 09/12 1410 30 09/12 1200 94 Ventilator 30% 09/12 1136 30 Intake & Output 09/13 1600 09/13 0800 09/13 0000 Intake Total 1679 1911 Output Total 765 1335 Balance 914 576 Intake, IV 909 851 Intake, Tube 445 400 Feeding Intake, Tube 325 660 Irrigant Output, Stool 150 200 Output, Urine 615 1135 Physical Exam Other Physical Findings: General Appearance: Remains intubated, awake Head: atraumatic, normal appearance Eyes: Bilateral: normal appearance, PERRL Neck: normal inspection, supple Respiratory: Bilateral anterior rhonchi heard, few scattered crackles Cardiovascular: S1 and S2 heard Gastrointestinal: normal bowel sounds, soft, non-tender, rectal tube in place w/ light brown stool Extremities: Dorsum right foot swelling/dressing in place Skin: Dorsum right foot redness extending to the lower ant tibial area, increased warmth to touch Results Last 24 Hours of Lab Results: Laboratory Tests 09/13 0345 Chemistry Sodium (137 - 145 mmol/L) 144 Potassium (3.5 - 5.1 mmol/L) 3.9 Chloride (98 - 107 mmol/L) 108 H Carbon Dioxide (22 - 30 mmol/L) 22 Anion Gap (5 - 16) 14 BUN (9 - 20 mg/dL) 87 H Creatinine (0.7 - 1.2 mg/dL) 3.1 H Estimated GFR (>60 ml/min) 21 L Glucose (65 - 99 mg/dL) 293 H Calcium (8.4 - 10.2 mg/dL) 8.1 L Phosphorus (2.5 - 4.5 mg/dL) 5.6 H Magnesium (1.6 - 2.3 mg/dL) 1.7 Total Bilirubin (0.2 - 1.3 mg/dL) 0.9 AST (17 - 59 U/L) 43 ALT (21 - 72 U/L) 47 Albumin (3.5 - 5.0 g/dL) 2.2 L Hematology CBC w Diff NO MAN DIFF REQ WBC (4.8 - 10.8 /CUMM) 15.4 H RBC (4.70 - 6.10 /CUMM) 3.42 L Hgb (14.0 - 18.0 G/DL) 9.2 L Hct (42 - 52 %) 28.3 L MCV (80.0 - 94.0 FL) 82.7 MCH (27.0 - 31.0 PG) 27.0 MCHC (33.0 - 37.0 G/DL) 32.7 L RDW (11.5 - 14.5 %) 19.4 H Plt Count (130 - 400 /CUMM) 106 L MPV (7.4 - 10.4 FL) 12.5 H Gran % (42.2 - 75.2 %) 82.5 H Lymphocytes % (20.5 - 51.1 %) 9.5 L Monocytes % (1.7 - 9.3 %) 6.8 Eosinophils % (0 - 5 %) 1.1 Basophils % (0.0 - 2.0 %) 0.1 Absolute Granulocytes (1.4 - 6.5 /CUMM) 12.7 H Absolute Lymphocytes (1.2 - 3.4 /CUMM) 1.5 Absolute Monocytes (0.10 - 0.60 /CUMM) 1.0 H Absolute Eosinophils (0.0 - 0.7 /CUMM) 0.2 Absolute Basophils (0.0 - 0.2 /CUMM) 0 Last 24 Hours of Shady Results: us : ADM IN SPEC #: [id number] JOSE MARIA: 09/12/17 STATUS: RECD RECD: 09/12/[address]: Shai Brasher MD SOURCE: EXTREMITIE ENTR: 09/12/[address]: Margot Pierre DO [facility]: FOOT R Lluvia GARCIA, Jose Anand MD,Yordy Fermin ORDERED: XTRM CULT COMMENT: TYPE OF SPECIMEN: DEEP Procedure Result XTRM CULT PENDING SPEC #: [id number] JOSE MARIA: 09/12/17 STATUS: RECD RECD: 09/12/[address]: Kelby Bowens MD SOURCE: STOOL ENTR: 09/12/[address]: Margot Pierre DO [facility]: Lluvia GARCIA, Jose Anand MD,Yordy Fermin ORDERED: C.DIFFICILE EIA COMMENT: Has pt had antimicrobial/antineoplastic rx in past 4-6wks? N Has pt had abd pain, fever, or constipation? N Procedure Result C.DIFFICILE EIA PENDING Recent Imaging Studies: CXR 09/11 IMPRESSION: Suggestion of mild worsening of the patient's vascular congestive changes. DICTATED BY: Etienne Mcdaniels MD DATE/TIME DICTATED:09/11/17855 FUNERAL SERVICE LICENSEE:REGI DATE/TIME TRANSCRIBED:09/11/17855 CONFIDENTIAL, DO NOT COPY WITHOUT APPROPRIATE AUTHORIZATION. <Electronically signed in Other Vendor System> SIGNED BY: Etienne Mcdaniels MD 09/11/17 0909/12 CT R foot IMPRESSION: Interval increase in the extensive diffuse soft tissue swelling and subcutaneous edema. No loculated fluid collections are identified in this noncontrast study. The findings could represent cellulitis in the appropriate clinical circumstance. 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 Multiple lucencies/erosions in the midfoot. These findings could be related to Charcot arthropathy, inflammatory arthropathy, or could represent septic arthritis/osteomyelitis superimposed on more chronic changes. Clinically correlate, correlate with blood work, further evaluation with WBC bone scan can be obtained as clinically warranted. DICTATED BY: Duglas Ramirez MD DATE/TIME DICTATED:09/12/171519 FUNERAL SERVICE LICENSEE:REGI DATE/TIME TRANSCRIBED:09/12/171519 Assessment/Plan ID Impression: 1. Group B strep endocarditis.fever; r/o aspiration pneumonia. Abx associated diarrhea; r/o C. difficile infection; on empiric oral vancomycin D #2 2. Acute on chronic renal failure, secondary to ATN. 3. Acute hypoxemic respiratory failure in the setting of fluid overload versus aspiration pneumonia. 4. Lacunar stroke. 5. Evacuation of abscess, from the dorsum of the right foot (09/10/17); cx + Strep gr B. CT foot revealing "advanced arthropathy in the midfoot, with marked destructive changes of the navicular. Multiple lucencies/erosions in the midfoot. These findings could be related to Charcot arthropathy, inflammatory arthropathy, or could represent septic arthritis/osteomyelitis superimposed on more chronic changes. Once feasible further imaging to be considered (MRI R foot eval acute OM). Suggestion: 1. Treated w/ iv Unasyn D #7; monitor gastric residuals; CXR r/o aspiration pneumonia; if spiking fever again and CXR suggestive of aspiration pneumonia would obrain sputum cx; and change abx from Unasyn to Zosyn 2.25 gm q 6 h and also give Vancomycin 1 gm x1. obtain MRSA surv cx. 2. F/u C. difficile stool assay results; d/c oral vancomycin 125 mg po q 6 h if test negative. 2. Trend CBC (persistent leukocytosis noted), BMP. 3. F/U CT foot results; f/u local wound cx results.
[2017-09-13 12:00] VITALS: BP 140/58
--- NOTE | 2017-09-13 14:15 | Cons- Endocrinology ---
General Information and HPI Consulting Request Date of Consult: 09/13/17 Requested By: Dr. Armstrong Reason for Consult: management of DM/ hyperglycemia Source of Information: old records Exam Limitations: unable to give history (patient is intubated) History of Present Illness: 61 y/o male with Hx of diabetes type 2, hypertension, coronary artery disease with previous [place] s/p CABG, AICD and pacemaker placement , history of prostate cancer s/p TURP, status post right great toe debridement, was admitted for slurred speech left facial droop. CT of the head showed a stroke; JESUS findings were suggestive of endocarditis on mitral valve. The blood culture was positive for strep B. Patient remains intubated in ICU. He was on Levemir and Novolog, but his FSGs were in the 200s and 300s. The sc insulin regimen was discontinued. He is on tube feeling-- Glucerna at 60 ml/hour. He is going to be on an insulin drip. Allergies/Medications Allergies: Coded Allergies: No Known Allergies (02/19/16) Home Med List: Aspirin (Aspirin*) 81 MG TAB.CHEW 1 TAB PO DAILY HEART HEALTH (Reported) Atorvastatin Calcium 80 MG TABLET 1 TAB PO 1800 CHOLESTEROL (Reported) Bromocriptine Mesylate (Cycloset) 0.8 MG TABLET 1 TAB PO AD DM (Reported) Clopidogrel Bisulfate (Plavix) 75 MG TABLET 1 TAB PO DAILY HEART Please take as prescribed. Colchicine 0.6 MG TABLET 1 TAB PO BID GOUT (Reported) Empagliflozin (Jardiance) 25 MG TABLET 1 TAB PO DAILY DIABETES (Reported) Famotidine 20 MG TABLET 1 TAB PO BID GI (Reported) Insulin Aspart, Recombinant (Novolog Flexpen) 100 UNIT/ML INSULN.PEN DM ( Reported) Insulin Glargine,Hum.rec.anlog (Basaglar Kwikpen U-100) 100 UNIT/ML (3 ML) INSULN.PEN 20 UNITS SC QAM DM (Reported) Magnesium Oxide 400 MG TABLET 1 TAB PO BID SUPPLEMENT (Reported) Melatonin 3 MG TABLET 2 TAB PO QPM SLEEP (Reported) Metformin HCl 1,000 MG TABLET 1 TAB PO BID DIABETES (Reported) Metoprolol Tartrate 50 MG TABLET 1 TAB PO BID HEART/BP (Reported) Pantoprazole Sodium (Protonix) 40 MG TABLET.DR 1 TAB PO BID ULCER Please take as prescribed. Suvorexant (Belsomra) 20 MG TABLET 1 TAB PO QPM SLEEP (Reported) Valsartan 320 MG TABLET 1 TAB PO DAILY HEART (Reported) Review of Systems Review of Systems Constitutional: Reports: see HPI (patient is intubated). 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 Home Smoking Status: Never Smoked ETOH Use: occasional use Exam & Diagnostic Data Last 24 Hrs of Vital Signs/I&O Vital Signs Date Time Temp Pulse Resp B/P B/P Pulse O2 O2 Flow FiO2 Mean Ox Delivery Rate 09/13 1402 30 09/13 1130 30 09/13 0934 30 09/13 0853 78 140/66 09/13 0800 98 Ventilator 30% 09/13 0800 97.8 76 18 120/60 98 Ventilator 30% 09/13 0620 30 09/13 0407 30 09/13 0400 96 Ventilator 30% 09/13 0130 98.4 09/13 0026 30 09/13 0014 101.5 09/13 0000 101.5 84 24 140/60 93 Ventilator 30% 09/13 0000 93 Ventilator 30% 09/12 2204 30 09/12 2151 86 20 121/54 09/12 2000 98 Ventilator 30% 09/12 1919 30 09/12 1626 30 09/12 1600 97.7 82 18 151/66 98 Ventilator 30% 09/12 1600 98 Ventilator 30% Intake & Output 09/13 1600 09/13 0800 09/13 0000 Intake Total 1679 1911 Output Total 765 1335 Balance 914 576 Intake, IV 909 851 Intake, Tube 445 400 Feeding Intake, Tube 325 660 Irrigant Output, Stool 150 200 Output, Urine 615 1135 Physical Exam General Appearance: intubated Respiratory: decreased breath sounds (at bases) Cardiovascular: regular rate/rhythm Extremities: right LE cellulitis Labs/Shady Results: Laboratory Tests 09/13 0345 Chemistry Sodium (137 - 145 mmol/L) 144 Potassium (3.5 - 5.1 mmol/L) 3.9 Chloride (98 - 107 mmol/L) 108 H Carbon Dioxide (22 - 30 mmol/L) 22 Anion Gap (5 - 16) 14 BUN (9 - 20 mg/dL) 87 H Creatinine (0.7 - 1.2 mg/dL) 3.1 H Estimated GFR (>60 ml/min) 21 L Glucose (65 - 99 mg/dL) 293 H Calcium (8.4 - 10.2 mg/dL) 8.1 L Phosphorus (2.5 - 4.5 mg/dL) 5.6 H Magnesium (1.6 - 2.3 mg/dL) 1.7 Total Bilirubin (0.2 - 1.3 mg/dL) 0.9 AST (17 - 59 U/L) 43 ALT (21 - 72 U/L) 47 Albumin (3.5 - 5.0 g/dL) 2.2 L Hematology CBC w Diff NO MAN DIFF REQ WBC (4.8 - 10.8 /CUMM) 15.4 H RBC (4.70 - 6.10 /CUMM) 3.42 L Hgb (14.0 - 18.0 G/DL) 9.2 L Hct (42 - 52 %) 28.3 L MCV (80.0 - 94.0 FL) 82.7 MCH (27.0 - 31.0 PG) 27.0 MCHC (33.0 - 37.0 G/DL) 32.7 L RDW (11.5 - 14.5 %) 19.4 H Plt Count (130 - 400 /CUMM) 106 L MPV (7.4 - 10.4 FL) 12.5 H Gran % (42.2 - 75.2 %) 82.5 H Lymphocytes % (20.5 - 51.1 %) 9.5 L Monocytes % (1.7 - 9.3 %) 6.8 Eosinophils % (0 - 5 %) 1.1 Basophils % (0.0 - 2.0 %) 0.1 Absolute Granulocytes (1.4 - 6.5 /CUMM) 12.7 H Absolute Lymphocytes (1.2 - 3.4 /CUMM) 1.5 Absolute Monocytes (0.10 - 0.60 /CUMM) 1.0 H Absolute Eosinophils (0.0 - 0.7 /CUMM) 0.2 Absolute Basophils (0.0 - 0.2 /CUMM) 0 Laboratory Tests 09/13 0345 Chemistry Sodium (137 - 145 mmol/L) 144 Potassium (3.5 - 5.1 mmol/L) 3.9 Chloride (98 - 107 mmol/L) 108 H Carbon Dioxide (22 - 30 mmol/L) 22 Anion Gap (5 - 16) 14 BUN (9 - 20 mg/dL) 87 H Creatinine (0.7 - 1.2 mg/dL) 3.1 H Estimated GFR (>60 ml/min) 21 L Glucose (65 - 99 mg/dL) 293 H Calcium (8.4 - 10.2 mg/dL) 8.1 L Phosphorus (2.5 - 4.5 mg/dL) 5.6 H Magnesium (1.6 - 2.3 mg/dL) 1.7 Total Bilirubin (0.2 - 1.3 mg/dL) 0.9 AST (17 - 59 U/L) 43 ALT (21 - 72 U/L) 47 Albumin (3.5 - 5.0 g/dL) 2.2 L Hematology CBC w Diff NO MAN DIFF REQ WBC (4.8 - 10.8 /CUMM) 15.4 H RBC (4.70 - 6.10 /CUMM) 3.42 L Hgb (14.0 - 18.0 G/DL) 9.2 L Hct (42 - 52 %) 28.3 L MCV (80.0 - 94.0 FL) 82.7 MCH (27.0 - 31.0 PG) 27.0 MCHC (33.0 - 37.0 G/DL) 32.7 L RDW (11.5 - 14.5 %) 19.4 H Plt Count (130 - 400 /CUMM) 106 L MPV (7.4 - 10.4 FL) 12.5 H Gran % (42.2 - 75.2 %) 82.5 H Lymphocytes % (20.5 - 51.1 %) 9.5 L Monocytes % (1.7 - 9.3 %) 6.8 Eosinophils % (0 - 5 %) 1.1 Basophils % (0.0 - 2.0 %) 0.1 Absolute Granulocytes (1.4 - 6.5 /CUMM) 12.7 H Absolute Lymphocytes (1.2 - 3.4 /CUMM) 1.5 Absolute Monocytes (0.10 - 0.60 /CUMM) 1.0 H Absolute Eosinophils (0.0 - 0.7 /CUMM) 0.2 Absolute Basophils (0.0 - 0.2 /CUMM) 0 Assessment/Plan Assessment/Plan 61 y/o male with a complicated past medical history, was admitted for a stroke complicated with beta strep B sepsis, right LE cellulitis, ? endocarditis, acute renal insufficiency. He remains intubated and has been on tube feeding of Glucerna at 60 ml/hour. His glucose levels have been in the 200s and 300s. DM management: 1. agree with insulin drip; 2. monitor FSG every one hour; 3. adjust insulin drip rate according to the non DKA insulin drip protocol; 4. the target glucose level is beween 140 and 180 mg/dl will follow Consult Acknowledgment - Thank you for your consult request.
--- NOTE | 2017-09-13 14:46 | PN- Podiatry ---
Subjective Subjective: Patient is seen and evaluated at bedside in the intensive care unit for follow- up on a dorsal abscess of the right foot that was drained yesterday during a bedside procedure. The patient remains septic and intubated, with a white count slightly improved to 15,000 and a fever of 101F at around midnight. The patient appears more actively responsive today compared to yesterday, he is accompanied by his at bedside whom is making his medical decisions on his behalf. Review of Systems: Was unable to perform a review of systems due to the patient's overall condition Objective Vital Signs and I&Os Vital Signs Date Time Temp Pulse Resp B/P B/P Pulse O2 O2 Flow FiO2 Mean Ox Delivery Rate 09/13 1402 30 09/13 1130 30 09/13 0934 30 09/13 0853 78 140/66 09/13 0800 98 Ventilator 30% 09/13 0800 97.8 76 18 120/60 98 Ventilator 30% 09/13 0620 30 09/13 0407 30 09/13 0400 96 Ventilator 30% 09/13 0130 98.4 09/13 0026 30 09/13 0014 101.5 09/13 0000 101.5 84 24 140/60 93 Ventilator 30% 09/13 0000 93 Ventilator 30% 09/12 2204 30 09/12 2151 86 20 121/54 09/13 1999 98 Ventilator 30% 09/12 1919 30 09/12 1626 30 09/12 1600 97.7 82 18 151/66 98 Ventilator 30% 09/12 1600 98 Ventilator 30% Intake & Output 09/13 1600 09/13 0800 09/13 0000 09/12 1600 09/12 0800 09/12 0000 Intake Total 1679 1911 2280 1896 2240 Output Total 765 1335 8839 149 2521 Balance 914 576 380 996 240 Intake, IV 534 692 8000 816 1160 Intake, Other 600 Intake, Tube 445 400 358 480 480 Feeding Intake, Tube 325 660 725 600 Irrigant Number 4 1 Bowel Movements Output, Stool 150 200 Output, Urine 615 1135 0173 628 0720 Physical Exam: The patient's neurovascular status is unchanged from yesterday. +3 pitting edema of the right lower extremity remains present. There is some ecchymosis on the dorsum of the right midfoot and hindfoot from my expression of purulence yesterday. There remains a fiber granular lesion on the right lateral malleolus that is just deep to the dermal layer, and there remains epidermal bullous changes on the anterior ankle and over the styloid process. The erythema over the dorsal midfoot and hindfoot is slightly less robust compared to yesterday, but the area remains fluctuant. Upon aggressive expression, an additional 25 cc of a mixture of purulence and sanguinous drainage was expressed, mostly from the anterolateral ankle and dorsal lateral hindfoot and not from other planes. There remains no malodor, no crepitus, moderate calor, and no new ulcerations. Current Medications: Current Medications Sig/Jasvir Start time Last Medication Dose Route Stop Time Status Admin Acetaminophen 1,000 MG .STK-MED ONE 09/12 2359 DC IV 09/13 0000 Acetaminophen 650 MG Q6P PRN 09/06 0345 AC PO Acetaminophen 1,000 MG Q6P PRN 09/06 0345 AC 09/13 IV 0014 Ampicillin Sodium/ 3,000 MG Q8H 09/07 1745 AC 09/13 Sulbactam Sodium IV 0854 Sodium Chloride 100 ML Aspirin Buffered 81 MG DAILY 09/06 0900 AC 09/13 PO 0852 Chlorhexidine 15 ML BID 09/11 0900 AC 09/13 Gluconate PO 0854 Dextrose/Water 1,000 ML Q10H 09/10 1145 DC 09/13 IV 0756 Fentanyl Citrate 50 ML ONCE ONE 09/13 1415 DC IV 09/13 1416 Fentanyl Citrate 50 MCG ONCE ONE 09/13 1000 DC 09/13 IV 09/13 1001 0956 Folic Acid 1 MG DAILY 09/07 1023 AC 09/13 PO 0852 Furosemide 60 MG ONCE ONE 09/13 1000 DC IV 09/13 1001 Furosemide 40 MG ONCE ONE 09/13 1000 DC 09/13 IV 09/13 1001 1056 Hydromorphone HCl 1 MG Q4P PRN 09/10 2215 AC 09/13 IV 0044 Insulin Aspart 0 Q4H 09/10 1200 DC 09/13 SC 0838 Insulin Detemir 18 UNITS BID 09/13 2100 DC 09/13 SC 0914 Insulin Detemir 15 UNITS BID 09/12 0900 DC 09/12 SC 2152 Insulin Human Regular 100 UNIT Q24H 09/13 1100 AC Sodium Chloride 100 ML IV Lidocaine 20 ML .STK-MED ONE 09/12 1617 DC IA 09/12 1618 Lorazepam 2 MG ONE ONE 09/13 1045 DC 09/13 IV 09/13 1046 1042 Lorazepam 50 MG Q24H 09/09 0830 AC 09/12 Sodium Chloride 500 ML IV 0821 Magnesium Sulfate 1 GM ONCE ONE 09/13 0730 DC 09/13 Dextrose/Water 100 ML IV 09/13 1129 0851 Magnesium Sulfate 1 GM ONCE ONE 09/12 1445 DC 09/12 Dextrose/Water 100 ML IV 09/12 1844 1505 Metoprolol Tartrate 100 MG BID 09/11 0900 AC 09/13 PO 0853 Multivitamins 1 TAB DAILY 09/07 1023 AC 09/13 PO 0853 Pantoprazole Sodium 40 MG DAILY 09/09 0900 AC 09/13 IV 0852 Potassium Chloride 20 MEQ ONCE ONE 09/13 0730 DC 09/13 PO 09/13 0731 0851 Potassium Chloride 20 MEQ ONCE ONE 09/12 1445 DC 09/12 PO 09/12 1446 1504 Thiamine HCl 50 MG DAILY 09/07 1023 AC 09/13 PO 0852 Vancomycin HCl 125 MG Q6 09/12 1800 AC 09/13 PO 0530 Zinc Oxide 1 GATO TID PRN 09/11 1530 AC 09/12 TOP 0732 Results Last 48 Hours of Labs: Laboratory Tests 09/13 09/12 0345 0430 Chemistry Sodium (137 - 145 mmol/L) 144 147 H Potassium (3.5 - 5.1 mmol/L) 3.9 3.9 Chloride (98 - 107 mmol/L) 108 H 111 H Carbon Dioxide (22 - 30 mmol/L) 22 22 Anion Gap (5 - 16) 14 14 BUN (9 - 20 mg/dL) 87 H 93 H Creatinine (0.7 - 1.2 mg/dL) 3.1 H 3.0 H Estimated GFR (>60 ml/min) 21 L 21 L Glucose (65 - 99 mg/dL) 293 H 253 H Calcium (8.4 - 10.2 mg/dL) 8.1 L 8.3 L Phosphorus (2.5 - 4.5 mg/dL) 5.6 H 5.6 H Magnesium (1.6 - 2.3 mg/dL) 1.7 1.6 Total Bilirubin (0.2 - 1.3 mg/dL) 0.9 0.9 AST (17 - 59 U/L) 43 61 H ALT (21 - 72 U/L) 47 62 Albumin (3.5 - 5.0 g/dL) 2.2 L 2.3 L Hematology CBC w Diff NO MAN DIFF REQ NO MAN DIFF REQ WBC (4.8 - 10.8 /CUMM) 15.4 H 16.4 H RBC (4.70 - 6.10 /CUMM) 3.42 L 3.73 L Hgb (14.0 - 18.0 G/DL) 9.2 L 10.0 L Hct (42 - 52 %) 28.3 L 30.7 L MCV (80.0 - 94.0 FL) 82.7 82.4 MCH (27.0 - 31.0 PG) 27.0 26.8 L MCHC (33.0 - 37.0 G/DL) 32.7 L 32.5 L RDW (11.5 - 14.5 %) 19.4 H 19.8 H Plt Count (130 - 400 /CUMM) 106 L 84 L MPV (7.4 - 10.4 FL) 12.5 H 11.0 H Gran % (42.2 - 75.2 %) 82.5 H 79.8 H Lymphocytes % (20.5 - 51.1 %) 9.5 L 9.4 L Monocytes % (1.7 - 9.3 %) 6.8 8.9 Eosinophils % (0 - 5 %) 1.1 1.8 Basophils % (0.0 - 2.0 %) 0.1 0.1 Absolute Granulocytes (1.4 - 6.5 /CUMM) 12.7 H 13.1 H Absolute Lymphocytes (1.2 - 3.4 /CUMM) 1.5 1.5 Absolute Monocytes (0.10 - 0.60 /CUMM) 1.0 H 1.5 H Absolute Eosinophils (0.0 - 0.7 /CUMM) 0.2 0.3 Absolute Basophils (0.0 - 0.2 /CUMM) 0 0 Immunology Complement C3 Pending Complement C4 Pending Assessment/Plan Assessment/Plan 61-year-old type II diabetic male with newly diagnosed midtarsal Charcot neuroarthropathy, with positive group B strep bacteremia, with positive group B strep endocarditis, with a dorsal abscess status post incision and drainage at bedside 1 day ago, slightly improved. Patient was seen and evaluated at bedside The patient was given a dose of fentanyl at the time of my irrigation and packing per his standing orders from the primary team. An additional 20 cc of purulence was expressed from the area, the incision was irrigated with 500 cc of normal saline, and packed with one-inch plain packing. We will continue to monitor the patient's vital signs and white count for now. His next irrigation and packing will be tomorrow morning. If the patient does not show demonstrable improvement by tomorrow consistent with the findings of the procedure, he will be considered for an operative incision and drainage on an urgent basis. This was discussed with the primary team, and I instructed them to prepare accordingly. The case was also d/w the patient's , who agreed with the plan. Case was also d/w nursing and primary teams. Problem List: 1. Sepsis due to group B Streptococcus Core Measures Venous Thromboembolism VTE Risk Factors Age>40 No Mechanical VTE Prophylaxis d/t N/A MechProphylax Ordered No VTE Pharm Prophylaxis d/t NA PharmProphylax ordered
[2017-09-13 16:00] VITALS: BP 120/70
--- NOTE | 2017-09-13 20:47 | PN- Cardiology ---
Subjective Subjective: Remains intubated and sedated. Sinus rhythm on monitor. Objective Vital Signs and I&Os Vital Signs Date Time Temp Pulse Resp B/P B/P Pulse O2 O2 Flow FiO2 Mean Ox Delivery Rate 09/15 1701 30 09/15 1600 98.5 74 19 126/60 95 Ventilator 30% 09/15 1440 30 09/15 1200 95 Ventilator 30% 09/15 1200 98.6 67 16 108/56 98 Ventilator 30% 09/15 1140 30 09/15 0906 153/69 09/15 0900 30 09/15 0800 98.2 75 22 128/58 98 Ventilator 30% 09/15 0800 98 Ventilator 30% 09/15 0550 30 09/15 0400 97 Ventilator 30% 09/15 0321 30 09/15 0109 30 09/15 0000 100.6 81 28 140/70 96 Ventilator 30% 09/15 0000 96 Ventilator 30% 09/14 2232 89 30 156/70 09/14 2201 30 09/14 2000 97 Ventilator 30% 09/14 1924 30 Intake & Output 09/15 1600 09/15 0800 09/15 0000 09/14 1600 09/14 0800 09/14 0000 Intake Total 620.1 615 1626 1207 1300.5 1457.7 Output Total 600 1295 2245 2500 1200 2190 Balance 20.1 -680 -619 -1293 100.5 -732.3 Intake, IV 520.1 575 546 127 159.5 287.7 Intake, Oral 0 0 Intake, Tube 480 480 421 480 Feeding Intake, Tube 100 40 600 600 720 690 Irrigant Number 600 Bowel Movements Output, Stool 200 400 300 150 Output, Urine 600 1095 1845 2500 900 2040 Physical Exam: Well-developed overweight middle-aged male who is intubated. Vital signs: See above. Neck: No JVD, no bruits. Lungs: Clear to auscultation anteriorly. Heart: S1, S2 with grade 1/6 systolic murmur. No gallop or rub. Abdomen: Soft, nontender, positive bowel sounds. Extremities: 1+ bilateral lower extremity edema. Assessment/Plan Assessment/Plan 65-yo-w-m w/ hx HTN, HLD, DM, CAD s/p MS & CABG adm to the ICU 09/05/2017 w/ stroke syndrome & "new" AF w/ RVR s/p spontaneous cardioversion to SR which is being maintained, acute hypoxemic/hypercapnic respiratory failure felt 2/2 HFpEF , DEMETRIO on CKD, group B beta strep bacteremia of unknown source, thrombocytopenia, etc. Recommendations: * Continue ICU management. * Maintaining sinus rhythm and recent JESUS revealed normal left atrial appendage w/o thrombus therefore no urgency for AC. * Follow-up and ID recommendations regarding antimicrobial therapy. * DVT prophylaxis. Continue telemetry? Not applicable (In ICU.)
[2017-09-13 23:39] VITALS: BP 102/52
[2017-09-14 04:34] LABS: ABSOLUTE BASOPHIL COUNT 0 /CUMM (0.0-0.2); ABSOLUTE EOSINOPHIL COUNT 0.2 /CUMM (0.0-0.7); ABSOLUTE GRANULOCYTE CT 10.9 /CUMM (1.4-6.5); ABSOLUTE LYMPH COUNT 1.3 /CUMM (1.2-3.4); BASOPHIL % 0.1 % (0.0-2.0); EOSINOPHIL % 1.3 % (0-5); GRANULOCYTE % 81.5 % (42.2-75.2); HEMATOCRIT 28.5 % (42-52); MEAN CORPUSCULAR HGB 26.8 PG (27.0-31.0); MEAN CORPUSCULAR HGB CONC 32.8 G/DL (33.0-37.0); MEAN CORPUSCULAR VOLUME 81.8 FL (80.0-94.0); MEAN PLATELET VOLUME 11.8 FL (7.4-10.4); PLATELET COUNT 137 /CUMM (130-400); RBC DISTRIBUTION WIDTH 19.4 % (11.5-14.5); RED BLOOD CELL CT 3.48 /CUMM (4.70-6.10)
[2017-09-14 05:17] LABS: WHITE BLOOD CELL COUNT 13.4 /CUMM (4.8-10.8)
[2017-09-14 08:00] VITALS: BP 120/70
--- NOTE | 2017-09-14 08:11 | PN- Resident CRCU ---
Subjective HPI/CRCU Issues: Sepsis Bacteremia (Group B STREP) PAF ?endocarditis Hyperglycemia Intubated (day 7) 24 Hour Events: No acute events overnight. Patient's C.diff was negative and Vancomycin was discontinued. Continues on insulin drip with improvement in his blood sugar levels. Objective Vital Signs & I&O Last 8 Hrs of Vitals and I&O: . Exam General Appearance: no apparent distress, sedated, intubated Head: atraumatic, normal appearance Respiratory: normal breath sounds, chest non-tender Cardiovascular: irregularly irregular Gastrointestinal: soft, non-tender, rectal tube in place Extremities: bilateral upper and lower extremity edema Skin: intact, normal color Skin Temp/Moisture Exam: Warm/Dry Sepsis Skin Exam (color): Normal for Ethnicity Weaning Parameters NIF: 39 Minute Volume: 11 Resp rate: 48 Vt: 88 Heart Rate: 82 Current Medications: Current Medications Sig/Jasvir Start time Last Medication Dose Route Stop Time Status Admin Acetaminophen 650 MG Q6P PRN 09/06 0345 AC PO Acetaminophen 1,000 MG Q6P PRN 09/06 0345 AC 09/13 IV 0014 Ampicillin Sodium/ 3,000 MG Q8H 09/14 1000 AC Sulbactam Sodium IV Sodium Chloride 100 ML Ampicillin Sodium/ 3,000 MG Q8H 09/07 1745 DC 09/14 Sulbactam Sodium IV 0120 Sodium Chloride 100 ML Aspirin Buffered 81 MG DAILY 09/06 0900 AC 09/14 PO 0948 Chlorhexidine 15 ML BID 09/11 0900 09/14 Gluconate PO 0948 Fentanyl Citrate 50 ML ONCE ONE 09/13 1415 DC 09/13 IV 09/13 1416 1415 Fentanyl Citrate 100 MCG .STK-MED ONE 09/13 1405 DC IM 09/13 1406 Folic Acid 1 MG DAILY 09/07 1023 09/14 PO 0947 Heparin Sodium 5,000 UNIT Q8H 09/13 1712 AC 09/14 (Porcine) SC 0947 Hydromorphone HCl 1 MG Q4P PRN 09/10 2215 AC 09/13 IV 2217 Insulin Aspart 0 Q4H 09/10 1200 DC 09/13 SC 0838 Insulin Detemir 18 UNITS BID 09/13 2100 DC 09/13 SC 0914 Insulin Human Regular 100 UNIT Q16H 09/14 0030 09/14 Sodium Chloride 100 ML IV 0642 Insulin Human Regular 100 UNIT Q24H 09/13 1100 DC 09/13 Sodium Chloride 100 ML IV 1100 Lorazepam 50 MG Q24H 09/13 1830 AC 09/13 Sodium Chloride 500 ML IV 1927 Lorazepam 2 MG ONE ONE 09/13 1045 DC 09/13 IV 09/13 1046 1042 Lorazepam 50 MG Q24H 09/09 0830 DC 09/12 Sodium Chloride 500 ML IV 0821 Magnesium Sulfate 1 GM ONCE ONE 09/13 0730 DC 09/13 Dextrose/Water 100 ML IV 09/13 1129 0851 Metoprolol Tartrate 100 MG BID 09/11 0900 AC 09/14 PO 0947 Multivitamins 1 TAB DAILY 09/07 1023 AC 09/14 PO 0949 Pantoprazole Sodium 40 MG DAILY 09/09 0900 AC 09/14 IV 0948 Thiamine HCl 50 MG DAILY 09/07 1023 AC 09/14 PO 0948 Vancomycin HCl 125 MG Q6 09/12 1800 DC 09/14 PO 0641 Zinc Oxide 1 GATO TID PRN 09/11 1530 AC 09/13 TOP 1730 Impression/Plan Impression/Problem List Impression: 65 y/o M with PMH of DM, Gout, OR s/p CABG on aspirin/plavix, hypertension and hyperlipidemia was brought to the ED by his after his grizzlyman noticed slurred speech during a f/u for podagra. As per the , pt had sudden onset dysarthria, difficulty swallowing and L nasolabial fold drooping. On admission pertinent labs showed leukocytosis (12.8), thrombocytopenia (73), BUN/CR (58/2.3 ). EKG showed a-fib with RVR on admission with HR in the 180s, and pt was put on cardizem drip; he was admitted to the ICU for further management. Assessment: 1. Acute Hypoxemic Respiratory Failure s/p intuabtion (day 7) 2. Atrial Fibrilliation with RVR - now in NSR 3. DEMETRIO 4. Lacunar Infarct 5. Strep B bacteremia with ? endocarditis 6. Elevated Troponins - resolved 7. Hyperglycemia 8. Thrombocytopenia - resolved 9. Charcot athropathy 10. Increased swellling/inflammation of right foot s/p I&D day # 2 11. Elevated LFTs - resolved Plan: * Continue monitoring in ICU for now. * Continue mechanical ventilation with AC with VT is of 550, PEEP of 5, respiratory rate of 20, current FiO2 is decreased now to 30%. * Currently on IV Unasyn (day 9) * C.diff was negative and oral Vancomycin has been discontinued. * Metoprolol 100mg bid to maintain him in sinus rhythm. * AC per cardio * Insulin drip has been discontinued and started on Levemir 40 units BID and SS adjusted per Endo recs. * His transaminitis has resolved * Continue IVF with D5W @75ml/hr - 1 bag * DEMETRIO is improving. * IV lasix 40mg one dose today - goal UOP 3L * Bedside I&D on 09/12 and 09/14. Patient will require further debridement and drainage in the OR tomorrow. Will hold his tube feeds at midnight. * Diet: Tube feeds on Glucerna at 60cc/hr. * DVT Prophylaxis: ALPS only * Code: Full Code Problem List: 1. Sepsis due to group B Streptococcus Pain Ratin Pain Location: none Tomorrow's Labs & Rationales: CBC, ICU bundle Plan DVT/Prophylaxis: mechanical CBC, ICU bundle Plan DVT/Prophylaxis: mechanical DVT/Prophylaxis: mechanical
--- NOTE | 2017-09-14 08:45 | RADIOLOGY REPORT ---
EXAMINATION: XR PORTABLE CHEST CLINICAL INFORMATION: Intubated. COMPARISON: Chest done on 09/11/2017. TECHNIQUE: Portable frontal view of the chest was obtained. FINDINGS: Significant improved aeration is noted bilaterally. The tip of the endotracheal tube is located approximately 6 cm above the level of the biju. AICD device is visualized, the leads are intact. The cardiomediastinal silhouette is within normal limits. Postop changes of sternotomy and CABG is seen. The tip of the enteric tube is not included within the [id number], appears infradiaphragmatic. IMPRESSION: Significant improved aeration since the prior study dated 09/11/2017. The tip of the endotracheal tube is located approximately 6 cm above the level of the biju.
--- NOTE | 2017-09-14 10:48 | PN- CRCU ---
Subjective HPI/Critical Care Issues: No acute events overnight. Patient's C.diff was negative and Vancomycin was discontinued. Continues on insulin drip with improvement in his blood sugar levels. Objective Vital Signs & I&O Last 8 Hrs of Vitals and I&O: Objective Current Medications: Current Medications Sig/Jasvir Start time Last Medication Dose Route Stop Time Status Admin Acetaminophen 650 MG Q6P PRN 09/06 0345 AC PO Acetaminophen 1,000 MG Q6P PRN 09/06 0345 AC 09/13 IV 0014 Ampicillin Sodium/ 3,000 MG Q8H 09/14 1000 AC Sulbactam Sodium IV Sodium Chloride 100 ML Ampicillin Sodium/ 3,000 MG Q8H 09/07 1745 DC 09/14 Sulbactam Sodium IV 0120 Sodium Chloride 100 ML Aspirin Buffered 81 MG DAILY 09/06 0900 AC 09/14 PO 0948 Chlorhexidine 15 ML BID 09/11 0900 AC 09/14 Gluconate PO 0948 Dextrose/Water 1,000 ML ONCE ONE 09/14 1030 AC IV 09/14 2349 Fentanyl Citrate 50 ML ONCE ONE 09/13 1415 DC 09/13 IV 09/13 1416 1415 Fentanyl Citrate 100 MCG .STK-MED ONE 09/13 1405 DC IM 09/13 1406 Folic Acid 1 MG DAILY 09/07 1023 09/14 PO 0947 Heparin Sodium 5,000 UNIT Q8H 09/13 1712 AC 09/14 (Porcine) SC 0947 Hydromorphone HCl 1 MG Q4P PRN 09/10 2215 AC 09/13 IV 2217 Insulin Aspart 0 Q4 09/14 1400 UNVr SC Insulin Aspart 0 Q4H 09/10 1200 DC 09/13 SC 0838 Insulin Detemir 40 UNITS BID 09/14 1037 UNVr SC Insulin Detemir 18 UNITS BID 09/13 2100 DC 09/13 SC 0914 Insulin Human Regular 100 UNIT Q16H 09/14 0030 DC 09/14 Sodium Chloride 100 ML IV 0642 Insulin Human Regular 100 UNIT Q24H 09/13 1100 DC 09/13 Sodium Chloride 100 ML IV 1100 Lorazepam 50 MG Q24H 09/13 1830 AC 09/13 Sodium Chloride 500 ML IV 1927 Lorazepam 2 MG ONE ONE 09/13 1045 DC 09/13 IV 09/13 1046 1042 Lorazepam 50 MG Q24H 09/09 0830 DC 09/12 Sodium Chloride 500 ML IV 0821 Magnesium Sulfate 1 GM ONCE ONE 09/13 0730 DC 09/13 Dextrose/Water 100 ML IV 09/13 1129 0851 Metoprolol Tartrate 100 MG BID 09/11 09 AC 09/14 PO 0947 Multivitamins 1 TAB DAILY 09/07 1023 AC 09/14 PO 0949 Pantoprazole Sodium 40 MG DAILY 09/09 0900 AC 09/14 IV 0948 Thiamine HCl 50 MG DAILY 09/07 1023 AC 09/14 PO 0948 Vancomycin HCl 125 MG Q6 09/12 1800 DC 09/14 PO 0641 Zinc Oxide 1 GATO TID PRN 09/11 1530 09/13 TOP 1730 Vital Signs & I&O Last 24 Hrs of Vitals and I&O: Vital Signs Date Time Temp Pulse Resp B/P B/P Pulse O2 O2 Flow FiO2 Mean Ox Delivery Rate 09/14 0947 80 128/60 09/14 0835 30 09/14 0633 30 09/14 0400 98 Ventilator 30% 09/14 0332 30 09/14 0036 30 09/14 0000 96 Ventilator 30% 09/13 2339 98.3 71 18 102/52 96 Ventilator 30% 09/13 2201 30 09/13 2126 85 135/77 09/13 2000 96 Ventilator 30% 09/13 1919 30 09/13 1602 30 09/13 1600 96 Ventilator 30% 09/13 1600 99.6 84 24 120/70 96 Ventilator 30% 09/13 1402 30 09/13 1200 94 Ventilator 30% 09/13 1200 98.0 76 28 140/58 94 Ventilator 30% 09/13 1130 30 Intake & Output 09/14 1600 09/14 0800 09/14 0000 Intake Total 1300.5 1457.7 Output Total 1200 2190 Balance 100.5 -732.3 Intake, IV 159.5 287.7 Intake, Oral 0 0 Intake, Tube 421 480 Feeding Intake, Tube 720 690 Irrigant Output, Stool 300 150 Output, Urine 900 2040 Laboratory Tests 09/14 Blood Gas pH (7.35 - 7.45 PH) 7.48 H pCO2 (35 - 45 TORR) 30 L pO2 (80 - 100 TORR) 93 HCO3 (21 - 28 MEQ/L) 22 ABG O2 Sat (Measured) (>96.0 %) 96.0 P-50 (Temp Corrected) Y Carboxyhemoglobin (1.5 - 5.0 %) 0.8 L O2 Concentration % 30% Temperature (97.0 - 100.0 FARH) 99.2 Respiration Rate (BPM) 14 O2 Delivery Method VENT Vent Mode CMV Expiratory Pressure (CMH2O/P) 5 Tidal Volume (CC) 550 Chemistry Sodium (137 - 145 mmol/L) 147 H Potassium (3.5 - 5.1 mmol/L) 3.9 Chloride (98 - 107 mmol/L) 110 H Carbon Dioxide (22 - 30 mmol/L) 22 Anion Gap (5 - 16) 15 BUN (9 - 20 mg/dL) 81 H Creatinine (0.7 - 1.2 mg/dL) 2.8 H Estimated GFR (>60 ml/min) 23 L Glucose (65 - 99 mg/dL) 169 H Calcium (8.4 - 10.2 mg/dL) 8.4 Phosphorus (2.5 - 4.5 mg/dL) 6.2 H Magnesium (1.6 - 2.3 mg/dL) 2.0 Total Bilirubin (0.2 - 1.3 mg/dL) 1.0 AST (17 - 59 U/L) 41 ALT (21 - 72 U/L) 39 Albumin (3.5 - 5.0 g/dL) 2.3 L Hematology CBC w Diff NO MAN DIFF REQ WBC (4.8 - 10.8 /CUMM) 13.4 H RBC (4.70 - 6.10 /CUMM) 3.48 L Hgb (14.0 - 18.0 G/DL) 9.3 L Hct (42 - 52 %) 28.5 L MCV (80.0 - 94.0 FL) 81.8 MCH (27.0 - 31.0 PG) 26.8 L MCHC (33.0 - 37.0 G/DL) 32.8 L RDW (11.5 - 14.5 %) 19.4 H Plt Count (130 - 400 /CUMM) 137 MPV (7.4 - 10.4 FL) 11.8 H Gran % (42.2 - 75.2 %) 81.5 H Lymphocytes % (20.5 - 51.1 %) 9.8 L Monocytes % (1.7 - 9.3 %) 7.3 Eosinophils % (0 - 5 %) 1.3 Basophils % (0.0 - 2.0 %) 0.1 Absolute Granulocytes (1.4 - 6.5 /CUMM) 10.9 H Absolute Lymphocytes (1.2 - 3.4 /CUMM) 1.3 Absolute Monocytes (0.10 - 0.60 /CUMM) 1.0 H Absolute Eosinophils (0.0 - 0.7 /CUMM) 0.2 Absolute Basophils (0.0 - 0.2 /CUMM) 0 Miscellaneous Phlebotomy Draw Site RIGHT RADIAL 09/13 0345 Chemistry Sodium (137 - 145 mmol/L) 144 Potassium (3.5 - 5.1 mmol/L) 3.9 Chloride (98 - 107 mmol/L) 108 H Carbon Dioxide (22 - 30 mmol/L) 22 Anion Gap (5 - 16) 14 BUN (9 - 20 mg/dL) 87 H Creatinine (0.7 - 1.2 mg/dL) 3.1 H Estimated GFR (>60 ml/min) 21 L Glucose (65 - 99 mg/dL) 293 H Calcium (8.4 - 10.2 mg/dL) 8.1 L Phosphorus (2.5 - 4.5 mg/dL) 5.6 H Magnesium (1.6 - 2.3 mg/dL) 1.7 Total Bilirubin (0.2 - 1.3 mg/dL) 0.9 AST (17 - 59 U/L) 43 ALT (21 - 72 U/L) 47 Albumin (3.5 - 5.0 g/dL) 2.2 L Hematology CBC w Diff NO MAN DIFF REQ WBC (4.8 - 10.8 /CUMM) 15.4 H RBC (4.70 - 6.10 /CUMM) 3.42 L Hgb (14.0 - 18.0 G/DL) 9.2 L Hct (42 - 52 %) 28.3 L MCV (80.0 - 94.0 FL) 82.7 MCH (27.0 - 31.0 PG) 27.0 MCHC (33.0 - 37.0 G/DL) 32.7 L RDW (11.5 - 14.5 %) 19.4 H Plt Count (130 - 400 /CUMM) 106 L MPV (7.4 - 10.4 FL) 12.5 H Gran % (42.2 - 75.2 %) 82.5 H Lymphocytes % (20.5 - 51.1 %) 9.5 L Monocytes % (1.7 - 9.3 %) 6.8 Eosinophils % (0 - 5 %) 1.1 Basophils % (0.0 - 2.0 %) 0.1 Absolute Granulocytes (1.4 - 6.5 /CUMM) 12.7 H Absolute Lymphocytes (1.2 - 3.4 /CUMM) 1.5 Absolute Monocytes (0.10 - 0.60 /CUMM) 1.0 H Absolute Eosinophils (0.0 - 0.7 /CUMM) 0.2 Absolute Basophils (0.0 - 0.2 /CUMM) 0 Microbiology Date/Time Procedure - Status Source Growth 09/12 165 Culture & Sensitivity - RES [facility] B 09/12 165 [facility] - [facility] 09/12 1435 Clostridium difficile Toxin A & B - COMP STOOL 09/110 Blood Culture - RES BLOOD 09/11 2114 Blood Culture - RES BLOOD Impression/Plan Impression/Plan Impression/Plan: General Appearance: Restless, mild distress, obese,sedated Ears, Nose, Throat: ET tube in place, dry blood on lips Respiratory: chest non-tender, no respiratory distress, rhonchi, ventilator noise Cardiovascular: tachycardia, irregularly irregular Gastrointestinal: non-tender, no organomegaly, abnormal bowel sounds (hypoactive ), distention Extremities: Bilateral lower extremity, 3+ in R, 1+ in L, right foot with dressing in place. Neurologic/Psych: sedated Skin: warm/dry CT lower ext IMPRESSION: Interval increase in the extensive diffuse soft tissue swelling and subcutaneous edema. No loculated fluid collections are identified in this noncontrast study. The findings could represent cellulitis in the appropriate clinical circumstance. 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 Multiple lucencies/erosions in the midfoot. These findings could be related to Charcot arthropathy, inflammatory arthropathy, or could represent septic arthritis/osteomyelitis superimposed on more chronic changes. Clinically correlate, correlate with blood work, further evaluation with WBC bone scan can be obtained as clinically warranted. IMPRESSION This is a gentleman with diabetes, hypertension, coronary artery disease with previous [place], CABG, previous AICD and pacemaker, history of prostate cancer with TURP, cirrhosis history, recurrent cellulitis of the left thigh and now has status post right great toe debridement came into the hospital with slurred speech left facial droop for few days. His CT of the head did show suggestion of a stroke and his JESUS is suggestive of an endocarditis on the mitral valve. He has had strep B sepsis. Since then he has been intubated sedated. 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 Charcot's arthropathy Atrial fibrillation now in sinus rhythm Chronic kidney disease with acute kidney injury in a gentleman with poorly controlled diabetes and multiple other problems, now diuresis ongoing and creat has improved to 2.8 Evolving infarct lacunar Cellulitis of the right thigh status post I and D Chronic thrombocytopenia in a patient with previous cirrhosis now platelet seems to be improving Hypernatremia and other electrolyte abnormality Recent loose stools consistent probable antibiotic induced diarrhea cdiff neg Cirrhosis of the liver DM uncontrolled on insulin drip now RECOMMENDATIONS Continue mechanical ventilator Gentle sedation IV abx per id Sugar control per Endocrine IV fluids and Tube feeding Podiatry will irrigate and pack in am and possible or in am Advance ett further by one cm Cont other meds WIll follow Pt is critically ill tts 41 mins discussed with the
--- NOTE | 2017-09-14 11:09 | PN- Diabetes ---
Assessment/Plan Diabetes Assessment: 61 y/o male with a complicated past medical history, was admitted for a stroke complicated with beta strep B sepsis, right LE cellulitis, ? endocarditis, acute renal insufficiency. He remains intubated and has been on tube feeding of Glucerna at 60 ml/hour. He was put on insulin drip on 09/13/2017. Insulin drip rate has been between 4 and 5 units per hour and his FSGs were between 170 and 200 over past several hours. In addition, he has been on free water 300 ml via feeding tube every 3 hours. Repeat sodium level was 147 this morning. The patient will be started on D5W at 75 ml/hour as well. Plan: 1. start Levemir 40 units twice a day; 2. stop insulin drip one hour after patient receives the first dose of Levemir; 3. start Novolog coverage every 4 hours; hold Novolog if the feeding is held-- detail see the inpatient DM order; 4. monitor FSGs and electrolytes. will follow. Please inform me if his glucose level is not controlled and then I will adjust his insulin regimen accordingly. Inpatient Diabetes Orders Every 4 Hours: Bolus Insulin: Novolog < 80 mg/dl: no coverage 80-100 mg/dl: 6 units 101-120 mg/dl: 6 units 121-150 mg/dl: 6 units 151-200 mg/dl: 9 units 201-250 mg/dl: 12 units 251-300 mg/dl: 15 units 301-350 mg/dl: 18 units 351-400 mg/dl: 21 units > 400 mg/dl: 24 units Subjective Subjective: He remains intubated. Objective Last 24 Hrs of Vital Signs/I&O Vital Signs Date Time Temp Pulse Resp B/P B/P Pulse O2 O2 Flow FiO2 Mean Ox Delivery Rate 09/14 0947 80 128/60 09/14 0835 30 09/14 0633 30 09/14 0400 98 Ventilator 30% 09/14 0332 30 09/14 0036 30 09/14 0000 96 Ventilator 30% 09/13 2339 98.3 71 18 102/52 96 Ventilator 30% 09/13 2201 30 09/13 2126 85 135/77 09/13 2000 96 Ventilator 30% 09/13 1919 30 09/13 1602 30 09/13 1600 96 Ventilator 30% 09/13 1600 99.6 84 24 120/70 96 Ventilator 30% 09/13 1402 30 09/13 1200 94 Ventilator 30% 09/13 1200 98.0 76 28 140/58 94 Ventilator 30% 09/13 1130 30 Intake & Output 09/14 1600 09/14 0800 09/14 0000 Intake Total 1300.5 1457.7 Output Total 1200 2190 Balance 100.5 -732.3 Intake, IV 159.5 287.7 Intake, Oral 0 0 Intake, Tube 421 480 Feeding Intake, Tube 720 690 Irrigant Output, Stool 300 150 Output, Urine 900 2040 Findings Pertinent Lab/Shady Results: Laboratory Tests 09/14 Blood Gas pH (7.35 - 7.45 PH) 7.48 H pCO2 (35 - 45 TORR) 30 L pO2 (80 - 100 TORR) 93 HCO3 (21 - 28 MEQ/L) 22 ABG O2 Sat (Measured) (>96.0 %) 96.0 P-50 (Temp Corrected) Y Carboxyhemoglobin (1.5 - 5.0 %) 0.8 L O2 Concentration % 30% Temperature (97.0 - 100.0 FARH) 99.2 Respiration Rate (BPM) 14 O2 Delivery Method VENT Vent Mode CMV Expiratory Pressure (CMH2O/P) 5 Tidal Volume (CC) 550 Chemistry Sodium (137 - 145 mmol/L) 147 H Potassium (3.5 - 5.1 mmol/L) 3.9 Chloride (98 - 107 mmol/L) 110 H Carbon Dioxide (22 - 30 mmol/L) 22 Anion Gap (5 - 16) 15 BUN (9 - 20 mg/dL) 81 H Creatinine (0.7 - 1.2 mg/dL) 2.8 H Estimated GFR (>60 ml/min) 23 L Glucose (65 - 99 mg/dL) 169 H Calcium (8.4 - 10.2 mg/dL) 8.4 Phosphorus (2.5 - 4.5 mg/dL) 6.2 H Magnesium (1.6 - 2.3 mg/dL) 2.0 Total Bilirubin (0.2 - 1.3 mg/dL) 1.0 AST (17 - 59 U/L) 41 ALT (21 - 72 U/L) 39 Albumin (3.5 - 5.0 g/dL) 2.3 L Hematology CBC w Diff NO MAN DIFF REQ WBC (4.8 - 10.8 /CUMM) 13.4 H RBC (4.70 - 6.10 /CUMM) 3.48 L Hgb (14.0 - 18.0 G/DL) 9.3 L Hct (42 - 52 %) 28.5 L MCV (80.0 - 94.0 FL) 81.8 MCH (27.0 - 31.0 PG) 26.8 L MCHC (33.0 - 37.0 G/DL) 32.8 L RDW (11.5 - 14.5 %) 19.4 H Plt Count (130 - 400 /CUMM) 137 MPV (7.4 - 10.4 FL) 11.8 H Gran % (42.2 - 75.2 %) 81.5 H Lymphocytes % (20.5 - 51.1 %) 9.8 L Monocytes % (1.7 - 9.3 %) 7.3 Eosinophils % (0 - 5 %) 1.3 Basophils % (0.0 - 2.0 %) 0.1 Absolute Granulocytes (1.4 - 6.5 /CUMM) 10.9 H Absolute Lymphocytes (1.2 - 3.4 /CUMM) 1.3 Absolute Monocytes (0.10 - 0.60 /CUMM) 1.0 H Absolute Eosinophils (0.0 - 0.7 /CUMM) 0.2 Absolute Basophils (0.0 - 0.2 /CUMM) 0 Miscellaneous Phlebotomy Draw Site RIGHT RADIAL
--- NOTE | 2017-09-14 11:38 | History & Physical Pre-Op ---
General Information and HPI MD Statement: I have seen and personally examined HOUSTON RUBI and documented this H&P. Preoperative diagnosis: Abscess, right foot, rule out subacute necrotizing soft tissue infection Planned procedure: Incision and drainage of right foot, excisional debridement of all nonviable skin, soft tissue, and bone. Planned anesthesia: Monitored anesthesia care with a right ankle block of 0.5% Marcaine plain Planned hemostasis: None Source of Information: old records Exam Limitations: unable to give history (patient is intubated) History of Present Illness: This is a 61-year-old male with a history of type 2 diabetes, newly diagnosed Charcot neuroarthropathy on this admission, who was admitted on the for rule out sepsis. The patient was found to be positive for group B strep bacteremia as well as endocarditis. Podiatry was consulted on the to evaluate the right foot as a possible additional source of sepsis. Per my discussion with the primary team prior to initial consultation, the foot did not appear significantly red or swollen initially upon admission but had gotten worse in the days since his intubation and transfer to intensive care. Prior to consultation they had ordered both an ultrasound as well as 2 CAT scans. The two CAT scans were negative for abscess or gas but did identify osseous breakdown in the mid tarsal and tarsometatarsal joints consistent with Charcot neuroarthropathy, and the ultrasound showed a fluid collection dorsal medially away from the clinical changes and consistent with nonspecific fluid collection from Charcot neuroarthropathy. Upon initially seeing the patient, I had an extensive discussion with his , who accompanied him at bedside, and serves as his healthcare proxy. We agreed given his critically ill state and multiple comorbidities to perform a bedside incision and drainage right away, which did yield a small amount of purulence and also yielded a small amount of devitalized subcutaneous tissue which was sent as a tissue culture. This also grew group B strep consistent with the other positive findings. The patient was then subsequently irrigated and packed Friday, Friday, and Friday, and although he has been afebrile for over 24 hours and his white count is trended down since the bedside procedure, the clinical appearance of the area remained concerning enough that the patient's and I agreed to move forward with a more extensive incision and drainage with excisional debridement of devitalized tissue as more definitive treatment for the infection. Despite the advanced Charcot neuroarthropathy, the patient has no neuropathic ulcerations and only had a history of a small one on the contralateral side of his great toe in the past. Aside from some superficial lesions on the lateral malleolus and styloid process consistent with early stage decubitus lesions clinically, there does not appear to be a formal portal of entry. Allergies/Medications Allergies: Coded Allergies: No Known Allergies (02/19/16) Home Med list Aspirin (Aspirin*) 81 MG TAB.CHEW 1 TAB PO DAILY HEART HEALTH (Reported) Atorvastatin Calcium 80 MG TABLET 1 TAB PO 1800 CHOLESTEROL (Reported) Bromocriptine Mesylate (Cycloset) 0.8 MG TABLET 1 TAB PO AD DM (Reported) Clopidogrel Bisulfate (Plavix) 75 MG TABLET 1 TAB PO DAILY HEART Please take as prescribed. Colchicine 0.6 MG TABLET 1 TAB PO BID GOUT (Reported) Empagliflozin (Jardiance) 25 MG TABLET 1 TAB PO DAILY DIABETES (Reported) Famotidine 20 MG TABLET 1 TAB PO BID GI (Reported) Insulin Aspart, Recombinant (Novolog Flexpen) 100 UNIT/ML INSULN.PEN DM ( Reported) Insulin Glargine,Hum.rec.anlog (Basaglar Kwikpen U-100) 100 UNIT/ML (3 ML) INSULN.PEN 20 UNITS SC QAM DM (Reported) Magnesium Oxide 400 MG TABLET 1 TAB PO BID SUPPLEMENT (Reported) Melatonin 3 MG TABLET 2 TAB PO QPM SLEEP (Reported) Metformin HCl 1,000 MG TABLET 1 TAB PO BID DIABETES (Reported) Metoprolol Tartrate 50 MG TABLET 1 TAB PO BID HEART/BP (Reported) Pantoprazole Sodium (Protonix) 40 MG TABLET.DR 1 TAB PO BID ULCER Please take as prescribed. 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 Home Smoking Status: Never Smoked ETOH Use: occasional use Review of Systems Review of Systems: Patient was unable to give a review of systems secondary to being intubated, he is not alert, not oriented, but does respond to painful stimuli Exam & Diagnostic Data Last 24 Hrs of Vital Signs/I&O Vital Signs Date Time Temp Pulse Resp B/P B/P Pulse O2 O2 Flow FiO2 Mean Ox Delivery Rate 09/14 1133 30 09/14 0947 80 128/60 09/14 0835 30 09/14 0633 30 09/14 0400 98 Ventilator 30% 09/14 0332 30 09/14 0036 30 09/14 0000 96 Ventilator 30% 09/13 2339 98.3 71 18 102/52 96 Ventilator 30% 09/13 2201 30 09/13 2126 85 135/77 09/13 2000 96 Ventilator 30% 09/13 1919 30 09/13 1602 30 09/13 1600 96 Ventilator 30% 09/13 1600 99.6 84 24 120/70 96 Ventilator 30% 09/13 1402 30 09/13 1200 94 Ventilator 30% 09/13 1200 98.0 76 28 140/58 94 Ventilator 30% Intake & Output 09/14 1600 09/14 0800 09/14 0000 Intake Total 1300.5 1457.7 Output Total 1200 2190 Balance 100.5 -732.3 Intake, IV 159.5 287.7 Intake, Oral 0 0 Intake, Tube 421 480 Feeding Intake, Tube 720 690 Irrigant Output, Stool 300 150 Output, Urine 900 2040 Physical Exam: Patient's neurovascular status is unchanged. Musculoskeletal exam is deferred given the patient is bedbound and intubated. There remains a large patch of erythema over the anterior ankle, anterior distal leg, and dorsal midfoot and hindfoot, but this is more faint than yesterday and receded from yesterday's margins. There remains superficial pressure lesions over the lateral malleolus, styloid process, and the bullous changes on the anterior ankle have begun to resolve. There remains some faint ecchymosis from my expression on the dorsal midfoot from Friday. An additional 10 cc of a mixture of serous and purulent drainage was expressed, but there remains no malodor, no crepitus. There remains +3 global pitting edema of the right lower extremity, but only lateral and proximal to the stab incision is there any expressible drainage. Last 24 Hrs of Labs/Shady: Laboratory Tests 09/14/17 0315: Anion Gap 15, Estimated GFR 23 L, Glucose 169 H, Calcium 8.4, Phosphorus 6.2 H, Magnesium 2.0, Total Bilirubin 1.0, AST 41, ALT 39, Albumin 2.3 L, CBC w Diff NO MAN DIFF REQ, RBC 3.48 L, MCV 81.8, MCH 26.8 L, MCHC 32.8 L, RDW 19.4 H, MPV 11.8 H, Gran % 81.5 H, Lymphocytes % 9.8 L, Monocytes % 7.3, Eosinophils % 1.3, Basophils % 0.1, Absolute Granulocytes 10.9 H, Absolute Lymphocytes 1.3, Absolute Monocytes 1.0 H, Absolute Eosinophils 0.2, Absolute Basophils 0 09/13/172014: pH 7.48 H, pCO2 30 L, pO2 93, HCO3 22, ABG O2 Sat (Measured) 96.0, P-50 (Temp Corrected) Y, Carboxyhemoglobin 0.8 L, O2 Concentration % 30%, Temperature 99.2 , Respiration Rate 14, O2 Delivery Method VENT, Vent Mode CMV, Expiratory Pressure 5, Tidal Volume 550, Phlebotomy Draw Site RIGHT RADIAL Diagnostic Data CXR Results 09/06/17 EXAM TYPE: RAD - XRY-PORTABLE CHEST XRAY EXAMINATION: XR PORTABLE CHEST CLINICAL INFORMATION: Shortness of breath. COMPARISON: Prior chest radiographs, most recently 09/05/2017. TECHNIQUE: Portable frontal view of the chest was obtained. FINDINGS: The heart, great vessels, pulmonary vasculature and mediastinum are stable. The heart size is at least top normal. There is mild pulmonary vascular congestion. There has been a prior median sternotomy. A dual-lead, dual-chamber pacemaker device shows no lead fracture or change in lead tip positions. Lung volumes are somewhat low, with crowding of bronchovascular and pulmonary parenchymal markings. There is mild elevation of the right hemidiaphragm. No focal infiltrate, effusion or pneumothorax is seen. There is no acute osseous abnormality. IMPRESSION: 1. There is cardiomegaly and mild pulmonary vascular congestion. No overt pulmonary edema is seen. 2. Lung volumes are low, with crowding of bronchovascular and pulmonary parenchymal markings. 3. There is stable mild elevation of the right hemidiaphragm. Other Results 09/05/17 EXAM TYPE: CAT - CT HEAD WO IV CONTRAST EXAMINATION: CT HEAD WITHOUT CONTRAST CLINICAL INFORMATION: Slurred speech. Presumptive diagnosis: CVA COMPARISON: None TECHNIQUE: Contiguous axial imaging was performed from the skull base to vertex without intravenous administration of contrast. DLP: 615 mGy-cm FINDINGS: There is no evidence of acute intracranial hemorrhage or territorial infarction. No abnormal mass effect or midline shift is seen. Celaya to white matter differentiation is well preserved. No extra-axial fluid collections are identified. The ventricles are normal in size. There is no abnormal attenuation within the brain parenchyma. The osseous structures and soft tissues are normal. The mastoid air cells and visualized portions of the paranasal sinuses are well aerated. IMPRESSION: No acute intracranial pathology. Assessment/Plan Assessment/Plan: 61-year-old male with uncontrolled type 2 diabetes, advanced Charcot neuroarthropathy of the right foot, with a dorsal right hindfoot abscess, possible necrotizing soft tissue infection Patient was seen and evaluated this morning with his accompanying him at bedside. I explained all the risks and benefits of the procedures to be performed, and made no guarantees about their outcome. I specifically explained the incision and drainage as a larger scale version of the prior bedside procedure that he had performed. I expressed that while he did make significant improvement over the weekend, that I believe more improvement can be made through a larger procedure and that we are moving forward with a even if he does not meet any sepsis criteria in between now and the procedure. I expressed my deep concern of the clinical appearance of the area, particularly in the context of no neuropathic ulcerations or any real portal of entry, and I am significantly suspicious given his positive bacteremia and positive endocarditis of hematogenous spread, and that he may have multiple sites of infection that are less predictable than a traditional neuropathic ulcer is a portal of entry. I also expressed to the patient's the significant possibility of a below- knee amputation in the intermediate future on this extremity due to the advanced Charcot neuroarthropathy, his poor candidacy for reconstruction based on his cardiovascular history, and now history of significant infection. If the patient is able to be weaned off intubation and continues to improve overall, he will still be nonweightbearing until further notice on the right side due to the Charcot neuroarthropathy alone with or without infection. The patient is already on a protocol for sedation and pain control, and this can be continued without any further intervention from me. We will also continue irrigation and packing for the larger surgical wound as we had done with the smaller surgical wound performed at bedside. The case was discussed with the primary team, the patient's , and I will confer with the ID analytical consultant on the case when he returns tomorrow. As Ranked By This Provider Problem List: 1. Cellulitis 2. Sepsis due to group B Streptococcus 3. Charcot's arthropathy
--- NOTE | 2017-09-14 15:43 | PN- Infect Dx ---
Subjective Subjective: Remains intubated; persistent loose stools. Review of Systems Comments: 12 points reviewed as noted, otherwise negative. Objective Last 24 Hrs of Vital Signs/I&O Vital Signs Date Time Temp Pulse Resp B/P B/P Pulse O2 O2 Flow FiO2 Mean Ox Delivery Rate 09/14 1412 30 09/14 1133 30 09/14 0947 80 128/60 09/14 0835 30 09/14 0800 98 Ventilator 30% 09/14 0800 97.8 80 26 120/70 98 Ventilator 30% 09/14 0633 30 09/14 0400 98 Ventilator 30% 09/14 0332 30 09/14 0036 30 09/14 0000 96 Ventilator 30% 09/13 2339 98.3 71 18 102/52 96 Ventilator 30% 09/13 2201 30 09/13 2126 85 135/77 09/13 2000 96 Ventilator 30% 09/13 1919 30 09/13 1602 30 09/13 1600 96 Ventilator 30% 09/13 1600 99.6 84 24 120/70 96 Ventilator 30% Intake & Output 09/14 1600 09/14 0800 09/14 0000 Intake Total 1300.5 1457.7 Output Total 1200 2190 Balance 100.5 -732.3 Intake, IV 159.5 287.7 Intake, Oral 0 0 Intake, Tube 421 480 Feeding Intake, Tube 720 690 Irrigant Output, Stool 300 150 Output, Urine 900 2040 Physical Exam Other Physical Findings: General Appearance: Remains intubated, awake Head: atraumatic, normal appearance Eyes: Bilateral: normal appearance, PERRL Neck: normal inspection, supple Respiratory: Bilateral anterior rhonchi heard, few scattered crackles Cardiovascular: S1 and S2 heard Gastrointestinal: normal bowel sounds, soft, non-tender, rectal tube in place w/ light brown stool Extremities: Dorsum right foot swelling/dressing in place Skin: Dorsum right foot redness extending to the lower ant tibial area, increased warmth to touch Results Last 24 Hours of Lab Results: Laboratory Tests 09/14 Blood Gas pH (7.35 - 7.45 PH) 7.48 H pCO2 (35 - 45 TORR) 30 L pO2 (80 - 100 TORR) 93 HCO3 (21 - 28 MEQ/L) 22 ABG O2 Sat (Measured) (>96.0 %) 96.0 P-50 (Temp Corrected) Y Carboxyhemoglobin (1.5 - 5.0 %) 0.8 L O2 Concentration % 30% Temperature (97.0 - 100.0 FARH) 99.2 Respiration Rate (BPM) 14 O2 Delivery Method VENT Vent Mode CMV Expiratory Pressure (CMH2O/P) 5 Tidal Volume (CC) 550 Chemistry Sodium (137 - 145 mmol/L) 147 H Potassium (3.5 - 5.1 mmol/L) 3.9 Chloride (98 - 107 mmol/L) 110 H Carbon Dioxide (22 - 30 mmol/L) 22 Anion Gap (5 - 16) 15 BUN (9 - 20 mg/dL) 81 H Creatinine (0.7 - 1.2 mg/dL) 2.8 H Estimated GFR (>60 ml/min) 23 L Glucose (65 - 99 mg/dL) 169 H Calcium (8.4 - 10.2 mg/dL) 8.4 Phosphorus (2.5 - 4.5 mg/dL) 6.2 H Magnesium (1.6 - 2.3 mg/dL) 2.0 Total Bilirubin (0.2 - 1.3 mg/dL) 1.0 AST (17 - 59 U/L) 41 ALT (21 - 72 U/L) 39 Albumin (3.5 - 5.0 g/dL) 2.3 L Hematology CBC w Diff NO MAN DIFF REQ WBC (4.8 - 10.8 /CUMM) 13.4 H RBC (4.70 - 6.10 /CUMM) 3.48 L Hgb (14.0 - 18.0 G/DL) 9.3 L Hct (42 - 52 %) 28.5 L MCV (80.0 - 94.0 FL) 81.8 MCH (27.0 - 31.0 PG) 26.8 L MCHC (33.0 - 37.0 G/DL) 32.8 L RDW (11.5 - 14.5 %) 19.4 H Plt Count (130 - 400 /CUMM) 137 MPV (7.4 - 10.4 FL) 11.8 H Gran % (42.2 - 75.2 %) 81.5 H Lymphocytes % (20.5 - 51.1 %) 9.8 L Monocytes % (1.7 - 9.3 %) 7.3 Eosinophils % (0 - 5 %) 1.3 Basophils % (0.0 - 2.0 %) 0.1 Absolute Granulocytes (1.4 - 6.5 /CUMM) 10.9 H Absolute Lymphocytes (1.2 - 3.4 /CUMM) 1.3 Absolute Monocytes (0.10 - 0.60 /CUMM) 1.0 H Absolute Eosinophils (0.0 - 0.7 /CUMM) 0.2 Absolute Basophils (0.0 - 0.2 /CUMM) 0 Miscellaneous Phlebotomy Draw Site RIGHT RADIAL Last 24 Hours of Shady Results: SPEC #: [id number] JOSE MARIA: 09/12/17 STATUS: COMP RECD: 09/12/[address]: Shai Brasher MD SOURCE: EXTREMITIE ENTR: 09/12/[address]: Margot Pierre DO SPDESC: ALPHONSO Teixeira MD, Jose Anand MD,Yordy Fermin ORDERED: XTRM CULT COMMENT: TYPE OF SPECIMEN: DEEP Procedure Result > GRAM STAIN Final 09/13/17-1318 WHITE BLOOD CELLS FEW GRAM POSITIVE COCCI MODERATE IN PAIRS AND CHAINS > EXTREMITIES CULTURE Final 09/14/17-1100 Heavy growth of: BETA STREP GROUP B Called to/Readback by LILY OWENS by LAB.[facility] [place] 09/13/17 1440 Penicillin and Ampicillin are drugs of choice for beta-hemolytic streptococcal infections. Susceptibility testing of penicillins and other beta-lactams are not routinely performed because non-susceptible isolates have only rarely been reported. Note: If patient is allergic to Penicillin, the laboratory can perform Clindamycin testing upon request. Please call within 5 days of final report. Recent Imaging Studies: IMPRESSION: Significant improved aeration since the prior study dated 09/11/2017. The tip of the endotracheal tube is located approximately 6 cm above the level of the biju. DICTATED BY: Mariano Hogan MD DATE/TIME DICTATED:09/14/17754 SENIOR SOFTWARE QUALITY ENGINEER:REGI DATE/TIME TRANSCRIBED:09/14/17754 CONFIDENTIAL, DO NOT COPY WITHOUT APPROPRIATE AUTHORIZATION. <Electronically signed in Other Vendor System> SIGNED BY: Samira GARCIA,Mariano 09/14/17 0845 Assessment/Plan ID Impression: 1. Group B strep endocarditis. Abx associated diarrhea; C. difficile infection a consideration; KALIE test negative.; empiric oral vancomycin D/C'ed. Persistent leukocytosis; s/p vacuation of abscess, dorsum of the right foot (09/10/17); cx + Strep gr B/ cellulitic changes R LE. CT R foot revealed "advanced arthropathy in the midfoot, with marked destructive []"; sx intervention planned for tomorrow 2. Acute on chronic renal failure, secondary to ATN; creatinine trending down. 3. Acute hypoxemic respiratory failure in the setting of fluid overload versus aspiration pneumonia; repeat CXR neg asp pna. 4. Lacunar stroke. Suggestion: 1. Cont treatment w/ iv Unasyn D #8 (dose per pharmacy; patient in [place]ET[place]); 2. Persistent leukocytosis;WBC count trending down; monitor CBC; ESR weekly; f/u sx recom. 3. Obtain local wound cx (tissue/bone) tomorrow as well as bone bx.
[2017-09-14 16:00] VITALS: BP 142/60
[2017-09-15] VITALS: BP 140/70
[2017-09-15 05:59] LABS: ABSOLUTE BASOPHIL COUNT 0 /CUMM (0.0-0.2); ABSOLUTE EOSINOPHIL COUNT 0.1 /CUMM (0.0-0.7); ABSOLUTE GRANULOCYTE CT 8.2 /CUMM (1.4-6.5); ABSOLUTE LYMPH COUNT 1.2 /CUMM (1.2-3.4); ABSOLUTE MONOCYTE COUNT 0.8 /CUMM (0.10-0.60); BASOPHIL % 0.1 % (0.0-2.0); EOSINOPHIL % 1.2 % (0-5); GRANULOCYTE % 79.2 % (42.2-75.2); MEAN CORPUSCULAR HGB 26.5 PG (27.0-31.0); MEAN CORPUSCULAR HGB CONC 32.4 G/DL (33.0-37.0); MEAN CORPUSCULAR VOLUME 81.8 FL (80.0-94.0); MEAN PLATELET VOLUME 12.1 FL (7.4-10.4); PLATELET COUNT 189 /CUMM (130-400); RBC DISTRIBUTION WIDTH 18.8 % (11.5-14.5); RED BLOOD CELL CT 3.42 /CUMM (4.70-6.10); WHITE BLOOD CELL COUNT 10.4 /CUMM (4.8-10.8)
--- NOTE | 2017-09-15 07:11 | PN- Resident CRCU ---
Subjective HPI/CRCU Issues: Sepsis Bacteremia (Group B STREP) PAF ?endocarditis Hyperglycemia Intubated (day 8) Current Vent Settings: Vt 500, Rate 14, PEEP 5, FiO2 30% Intake 24 hours: 3441 Output 24 hours: 6640 24 Hour Events: Patient spiked a fever overnight to 100.6 F. He's off sedation from Ativan. Tube feeds currently on hold as patient is scheduled for OR later today for debridement of his foot. Objective Vital Signs & I&O Last 8 Hrs of Vitals and I&O: . Exam General Appearance: sedated, intubated Head: atraumatic, normal appearance Respiratory: normal breath sounds, chest non-tender Cardiovascular: regular rate/rhythm Gastrointestinal: soft, non-tender, distention Extremities: b/l upper and lower extremity edema, right foot in neel wraps, right cook has erythema, warm to touch Skin: intact, normal color Skin Temp/Moisture Exam: Warm/Dry Sepsis Skin Exam (color): Normal for Ethnicity Weaning Parameters NIF: 32 Minute Volume: 15 Resp rate: 32 Vt: 550 Heart Rate: 75 Weaning Schedule Start Time: 1610 Minute Volume: 15 Resp Rate: 32 Vt: 550 Heart Rate: 75 End Time: 1710 Minute Volume: 14 Resp Rate: 40 Vt: 290 Heart Rate: 79 Current Medications: Current Medications Sig/Jasvir Start time Last Medication Dose Route Stop Time Status Admin Acetaminophen 650 MG Q6P PRN 09/06 0345 AC PO Acetaminophen 1,000 MG Q6P PRN 09/06 0345 09/13 IV 0014 Ampicillin Sodium/ 3,000 MG Q8H 09/14 1000 AC 09/15 Sulbactam Sodium IV 0217 Sodium Chloride 100 ML Ampicillin Sodium/ 3,000 MG Q8H 09/07 1745 ND 09/14 Sulbactam Sodium IV 0120 Sodium Chloride 100 ML Aspirin Buffered 81 MG DAILY 09/06 0900 09/14 PO 0948 Chlorhexidine 15 ML BID 09/11 09 09/14 Gluconate PO 2100 Dextrose/Water 1,000 ML ONCE ONE 09/15 0815 AC 09/15 IV 09/15 2134 0814 Dextrose/Water 1,000 ML ONCE ONE 09/14 1030 DC 09/14 IV 09/14 2349 1327 Fentanyl Citrate 500 MCG ONCE ONE 09/14 1300 DC 09/14 IV 09/14 1301 1200 Fentanyl Citrate 100 MCG .STK-MED ONE 09/14 1047 DC IM 09/14 1048 Folic Acid 1 MG DAILY 09/07 1023 09/14 PO 0947 Furosemide 40 MG ONCE ONE 09/14 1145 DC 09/14 IV 09/14 1146 1332 Heparin Sodium 5,000 UNIT Q8H 09/13 1712 09/15 (Porcine) SC 0108 Hydromorphone HCl 1 MG Q4P PRN 09/10 2215 AC 09/13 IV 2217 Insulin Aspart 0 Q4 09/15 1000 [facility] Insulin Aspart 0 Q4 09/14 1400 DC 09/14 [place] 09/15 0000 1817 Insulin Detemir 25 UNITS ONCE ONE 09/15 0815 DC [place] 09/15 0816 Insulin Detemir 25 UNITS ONCE ONE 09/14 2030 DC 09/14 [place] 09/14 2031 2233 Insulin Detemir 40 UNITS BID 09/14 1037 ND 09/14 [place] 09/15 0000 1220 Insulin Human Regular 0 Q6 09/14 2359 ND 09/15 SC 0605 Insulin Human Regular 100 UNIT Q16H 09/14 0030 ND 09/14 Sodium Chloride 100 ML IV 0642 Lorazepam 50 MG Q24H 09/13 1830 09/13 Sodium Chloride 500 ML IV 1927 Metoprolol Tartrate 100 MG BID 09/11 0900 09/14 PO 2232 Multivitamins 1 TAB DAILY 09/07 1023 09/14 PO 0949 Pantoprazole Sodium 40 MG DAILY 09/09 0900 09/14 IV 0948 Thiamine HCl 50 MG DAILY 09/07 1023 09/14 PO 0948 Zinc Oxide 1 GATO TID PRN 09/11 1530 09/13 TOP 1730 Impression/Plan Impression/Problem List Impression: 65 y/o M with PMH of DM, Gout, SC s/p CABG on aspirin/plavix, hypertension and hyperlipidemia was brought to the ED by his after his genetic counselor noticed slurred speech during a f/u for podagra. As per the , pt had sudden onset dysarthria, difficulty swallowing and L nasolabial fold drooping. On admission pertinent labs showed leukocytosis (12.8), thrombocytopenia (73), BUN/CR (58/2.3 ). EKG showed a-fib with RVR on admission with HR in the 180s, and pt was put on cardizem drip; he was admitted to the ICU for further management. Assessment and Plan: 1. Acute Hypoxemic Respiratory Failure s/p intuabtion (day 8) * Remains on mechanical ventilation * Off sedation * weaning trials today 2. Atrial Fibrilliation with RVR * remains in NSR * Continue Metoprolol 100mg BID * AC plans as per Cardio * Would repeat head CT today 3. DEMETRIO * Improving. * Trend Renal function 4. Lacunar Infarct * No deficits noticed at this time but further evaluation when patient is more awake. * Repeat head CT today to r/o hemorrhagic conversion 5. Strep B bacteremia with ? endocarditis * Continue IV Unasyn (day 10) * His right leg shows signs of cellulitis. * ID for antibiotics. He did spike a fever overnight. 6. Elevated Troponins - resolved * trops have trended. * likely due to type II SC 7. Hyperglycemia * Insulin SS adjusted per Endo recs * Levemir 25 units BID when NPO and 50 units BID when he resumes tube feeding. 8. Thrombocytopenia - resolved * Stable * transfused 1 unit pooled platelets on 09/09 which he received for his JESUS 9. Charcot athropathy with swellling/inflammation of right foot * Bedside I&D on 09/12 and 09/14. Patient will require further debridement and drainage in the OR today. 10. Elevated LFTs - resolved * No need to further monitor Diet: Tube feeds on Glucerna at 60cc/hr. Currently on hold DVT Prophylaxis: ALPS only Code: Full Code Problem List: 1. Sepsis due to group B Streptococcus Pain Ratin Tomorrow's Labs & Rationales: CBC, ICU bundle Plan DVT/Prophylaxis: mechanical
[2017-09-15 08:00] VITALS: BP 128/58
--- NOTE | 2017-09-15 08:30 | RADIOLOGY REPORT ---
EXAMINATION: XR PORTABLE CHEST CLINICAL INFORMATION: Confirmation of lines and tubes COMPARISON: 09/14/2017 TECHNIQUE: Portable frontal view of the chest was obtained. FINDINGS: Endotracheal tube stably positioned 5 cm above the biju. Dual-lead ICD leads are stable. No pneumothorax. Pulmonary vascularity within normal limits. Normal heart size in the frontal projection. No large pleural effusion. IMPRESSION: Stable lines and tubes. No evidence of pulmonary edema.
--- NOTE | 2017-09-15 08:36 | PN- CRCU ---
Subjective HPI/Critical Care Issues: Weekend events reviewed. The patient remains intubated and sedated. His Ativan drip is now off noting that he is arousable but not following commands. The patient is scheduled to go to the OR today for debridement. Tube feeds are on hold for now. He continues to have good urine output, noting his creatinine is improving. He is now being followed by endocrine for blood sugar control. The patient's T-max was 100.7 in the past 24 hours. Objective Current Medications: Current Medications Sig/Jasvir Start time Last Medication Dose Route Stop Time Status Admin Acetaminophen 650 MG Q6P PRN 09/06 0345 AC PO Acetaminophen 1,000 MG Q6P PRN 09/06 0345 AC 09/13 IV 0014 Ampicillin Sodium/ 3,000 MG Q8H 09/14 1000 AC 09/15 Sulbactam Sodium IV 0217 Sodium Chloride 100 ML Ampicillin Sodium/ 3,000 MG Q8H 09/07 1745 DC 09/14 Sulbactam Sodium IV 0120 Sodium Chloride 100 ML Aspirin Buffered 81 MG DAILY 09/06 0900 09/14 PO 0948 Chlorhexidine 15 ML BID 09/11 0900 09/14 Gluconate PO 2100 Dextrose/Water 1,000 ML ONCE ONE 09/14 1030 DC 09/14 IV 09/14 2349 1327 Fentanyl Citrate 500 MCG ONCE ONE 09/14 1300 DC 09/14 IV 09/14 1301 1200 Fentanyl Citrate 100 MCG .STK-MED ONE 09/14 1047 DC IM 09/14 1048 Folic Acid 1 MG DAILY 09/07 1023 09/14 PO 0947 Furosemide 40 MG ONCE ONE 09/14 1145 DC 09/14 IV 09/14 1146 1332 Heparin Sodium 5,000 UNIT Q8H 09/13 1712 09/15 (Porcine) SC 0108 Hydromorphone HCl 1 MG Q4P PRN 09/10 2215 AC 09/13 IV 2217 Insulin Aspart 0 Q4 09/14 1400 DC 09/14 SC 09/15 0000 1817 Insulin Detemir 25 UNITS ONCE ONE 09/14 2030 DC 09/14 WI 09/14 2031 2233 Insulin Detemir 40 UNITS BID 09/14 1037 DC 09/14 WI 09/15 0000 1220 Insulin Human Regular 0 Q6 09/14 2359 09/15 SC 0605 Insulin Human Regular 100 UNIT Q16H 09/14 0030 DC 09/14 Sodium Chloride 100 ML IV 0642 Lorazepam 50 MG Q24H 09/13 1830 09/13 Sodium Chloride 500 ML IV 1927 Metoprolol Tartrate 100 MG BID 09/11 0900 AC 09/14 PO 2232 Multivitamins 1 TAB DAILY 09/07 1023 09/14 PO 0949 Pantoprazole Sodium 40 MG DAILY 09/09 0900 AC 09/14 IV 0948 Thiamine HCl 50 MG DAILY 09/07 1023 AC 09/14 PO 0948 Zinc Oxide 1 GATO TID PRN 09/11 1530 09/13 TOP 1730 Vital Signs & I&O Last 24 Hrs of Vitals and I&O: Vital Signs Date Time Temp Pulse Resp B/P B/P Pulse O2 O2 Flow FiO2 Mean Ox Delivery Rate 09/15 0550 30 09/15 0400 97 Ventilator 30% 09/15 0321 30 09/15 0109 30 09/15 0000 100.6 81 28 140/70 96 Ventilator 30% 09/15 0000 96 Ventilator 30% 09/14 2232 89 30 156/70 09/14 2201 30 09/14 2000 97 Ventilator 30% 09/14 1924 30 09/14 1600 98 Ventilator 30% 09/14 1600 97.0 80 30 142/60 98 Ventilator 30% 09/14 1551 30 09/14 1412 30 09/14 1200 96 Ventilator 30% 09/14 1133 30 09/14 0947 80 128/60 09/14 0835 30 Intake & Output 09/15 1600 09/15 0800 09/15 0000 Intake Total 615 1626 Output Total 1295 2245 Balance -680 -619 Intake, IV 575 546 Intake, Tube 480 Feeding Intake, Tube 40 600 Irrigant Output, Stool 200 400 Output, Urine 1095 1845 Physical Exam General Appearance: Sedated and intubated, no distress Head: atraumatic, normal appearance Eyes: Bilateral: normal appearance, PERRL Neck: normal inspection, supple Respiratory: Bilateral anterior rhonchi heard, few scattered crackles Cardiovascular: S1 and S2 heard Gastrointestinal: normal bowel sounds, soft, non-tender Extremities: Right foot swelling over the dorsum, appears worse, warm to touch Skin: intact, normal color Results Last 24 Hrs of Lab Results: Laboratory Tests 09/15/17 0505: pH 7.48 H, pCO2 30 L, pO2 95, HCO3 22, ABG O2 Sat (Measured) 97.0, P-50 (Temp Corrected) N, Carboxyhemoglobin 0.1 L, O2 Concentration % 30%, Temperature 98.6 , Respiration Rate 14, O2 Delivery Method ESPRIT, Vent Mode AC, Expiratory Pressure 5, Tidal Volume 550, Phlebotomy Draw Site RIGHT RADIAL 09/15/17 0415: Anion Gap 15, Estimated GFR 29 L, Glucose 209 H, Calcium 8.7, Phosphorus 4.6 H, Magnesium 1.9, Total Bilirubin 1.0, AST 48, ALT 34, Albumin 2.4 L, CBC w Diff NO MAN DIFF REQ, RBC 3.42 L, MCV 81.8, MCH 26.5 L, MCHC 32.4 L, RDW 18.8 H, MPV 12.1 H, Gran % 79.2 H, Lymphocytes % 11.3 L, Monocytes % 8.2, Eosinophils % 1.2, Basophils % 0.1, Absolute Granulocytes 8.2 H, Absolute Lymphocytes 1.2, Absolute Monocytes 0.8 H, Absolute Eosinophils 0.1, Absolute Basophils 0 Impression/Plan Impression/Plan Impression/Plan: 1. Multiple organ system failure secondary to Group B strep bacteremia and possible endocarditis. 2. Acute on chronic renal failure, creatinine trending down slowly, secondary to ATN. 3. Right lower extremity foot abscess and fractures, for debridement today. 4. Acute hypoxemic respiratory failure in the setting of fluid overload versus aspiration pneumonia. 5. Resolved thrombocytopenia. 6. Atrial fibrillation, in sinus rhythm. 7. Lacunar stroke. 8. Positive troponins, suggestive of demand ischemia. 9. Cirrhosis, LFTs continue to improve. 10. Encephalopathy. 11. Malnutrition, on tube feeds. 12. Diarrhea secondary to tube feeds, C. difficile negative. Recommendations: * Continue to hold off Ativan, keep SAS 3-4. * Continue Dilaudid for pain control. 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 * Tube feeds on hold pending surgical intervention. * Check a non-contrast head CT today to evaluate for hemorrhagic conversion. * Will start anticoagulation as recommended by cardiology once the patient's head CT is shown to be negative and he is cleared from a surgical standpoint. * Minimize sedation. * Continue with pain control. * Hold off on weaning until the patient returns from the OR and is awake and alert. * Continue current ventilator settings. * Continue nebs/total respiratory care. * Continue IV Unasyn, follow-up ID input. * Vent bundle/DVT and GI prophylaxis at all times. * Appreciate all consultants input. * The patient remains critically ill. I discussed plan of care with the house staff and asked them to contact me if the patients condition changes or if they have any questions.
--- NOTE | 2017-09-15 09:33 | PN- Diabetes ---
Assessment/Plan Diabetes Assessment: 61 y/o male with a complicated past medical history, was admitted for a stroke complicated with beta strep B sepsis, right LE cellulitis, ? endocarditis, acute renal insufficiency. He remains intubated and has been on tube feeding of Glucerna at 60 ml/hour. He was put on insulin drip on 09/13/2017 which was discontinued after his glucose levels were better controlled. He was started on Levemir 40 units twice a day; Novolog coverage every 4 hours. In addition, he is on D5w at 75 ml/hour. His FSGs were 271, 259, 274 and 216. Patient is going to have the foot procedure done today. The feeding has been held. Levemir was decreased to 25 units last night. The am lab still showed sodium of 147. Plan: When the feeding is held and he is still on D5 W at 75 ml/hour --- Levemir 25 units twice a day; ---Novolog coverage every 4 hours; FSG 100-150, 3 units 151-200, 5 units 201-250, 7 units 251-300, 9 units 301-350, 11 units 351-400, 13 units > 400, 15 units When he is on feeding-- Glucerna 60 ml/hour ---Levemir 50 units twice a day ---Novolog coverage every 4 hours FSG 100-150, 8 units 151-200, 11 units 201-250, 14 units 251-300, 17 units 301-350, 20 units 351-400, 23 units > 400, 26 units Monitor FSGs and electrolytes. will follow. Subjective Subjective: Patient remains intubated. Objective Last 24 Hrs of Vital Signs/I&O Vital Signs Date Time Temp Pulse Resp B/P B/P Pulse O2 O2 Flow FiO2 Mean Ox Delivery Rate 09/15 0906 153/69 09/15 0550 30 09/15 0400 97 Ventilator 30% 09/15 0321 30 09/15 0109 30 09/15 0000 100.6 81 28 140/70 96 Ventilator 30% 09/15 0000 96 Ventilator 30% 09/14 2232 89 30 156/70 09/14 2201 30 09/14 2000 97 Ventilator 30% 09/14 1924 30 09/14 1600 98 Ventilator 30% 09/14 1600 97.0 80 30 142/60 98 Ventilator 30% 09/14 1551 30 09/14 1412 30 09/14 1200 96 Ventilator 30% 09/14 1133 30 09/14 0947 80 128/60 Intake & Output 09/15 1600 09/15 0800 09/15 0000 Intake Total 615 1626 Output Total 1295 2245 Balance -680 -619 Intake, IV 575 546 Intake, Tube 480 Feeding Intake, Tube 40 600 Irrigant Output, Stool 200 400 Output, Urine 1095 1845 Findings Pertinent Lab/Shady Results: Laboratory Tests 09/15 09/15 0505 0415 Blood Gas pH (7.35 - 7.45 PH) 7.48 H pCO2 (35 - 45 TORR) 30 L pO2 (80 - 100 TORR) 95 HCO3 (21 - 28 MEQ/L) 22 ABG O2 Sat (Measured) (>96.0 %) 97.0 P-50 (Temp Corrected) N Carboxyhemoglobin (1.5 - 5.0 %) 0.1 L O2 Concentration % 30% Temperature (97.0 - 100.0 FARH) 98.6 Respiration Rate (BPM) 14 O2 Delivery Method ESPRIT Vent Mode AC Expiratory Pressure (CMH2O/P) 5 Tidal Volume (CC) 550 Chemistry Sodium (137 - 145 mmol/L) 147 H Potassium (3.5 - 5.1 mmol/L) 3.9 Chloride (98 - 107 mmol/L) 110 H Carbon Dioxide (22 - 30 mmol/L) 22 Anion Gap (5 - 16) 15 BUN (9 - 20 mg/dL) 75 H Creatinine (0.7 - 1.2 mg/dL) 2.3 H Estimated GFR (>60 ml/min) 29 L Glucose (65 - 99 mg/dL) 209 H Calcium (8.4 - 10.2 mg/dL) 8.7 Phosphorus (2.5 - 4.5 mg/dL) 4.6 H Magnesium (1.6 - 2.3 mg/dL) 1.9 Total Bilirubin (0.2 - 1.3 mg/dL) 1.0 AST (17 - 59 U/L) 48 ALT (21 - 72 U/L) 34 Albumin (3.5 - 5.0 g/dL) 2.4 L Hematology CBC w Diff NO MAN DIFF REQ WBC (4.8 - 10.8 /CUMM) 10.4 RBC (4.70 - 6.10 /CUMM) 3.42 L Hgb (14.0 - 18.0 G/DL) 9.1 L Hct (42 - 52 %) 28.0 L MCV (80.0 - 94.0 FL) 81.8 MCH (27.0 - 31.0 PG) 26.5 L MCHC (33.0 - 37.0 G/DL) 32.4 L RDW (11.5 - 14.5 %) 18.8 H Plt Count (130 - 400 /CUMM) 189 MPV (7.4 - 10.4 FL) 12.1 H Gran % (42.2 - 75.2 %) 79.2 H Lymphocytes % (20.5 - 51.1 %) 11.3 L Monocytes % (1.7 - 9.3 %) 8.2 Eosinophils % (0 - 5 %) 1.2 Basophils % (0.0 - 2.0 %) 0.1 Absolute Granulocytes (1.4 - 6.5 /CUMM) 8.2 H Absolute Lymphocytes (1.2 - 3.4 /CUMM) 1.2 Absolute Monocytes (0.10 - 0.60 /CUMM) 0.8 H Absolute Eosinophils (0.0 - 0.7 /CUMM) 0.1 Absolute Basophils (0.0 - 0.2 /CUMM) 0 Miscellaneous Phlebotomy Draw Site RIGHT RADIAL
--- NOTE | 2017-09-15 11:47 | PN- Infect Dx ---
Subjective Subjective: T-max 100.6. He remains sedated and unable to provide any history. A rectal tube was placed 3 days ago for copious amounts of liquid stool. Objective Last 24 Hrs of Vital Signs/I&O Vital Signs Date Time Temp Pulse Resp B/P B/P Pulse O2 O2 Flow FiO2 Mean Ox Delivery Rate 09/15 0906 153/69 09/15 0900 30 09/15 0800 98.2 75 22 128/58 98 Ventilator 30% 09/15 0550 30 09/15 0400 97 Ventilator 30% 09/15 0321 30 09/15 0109 30 09/15 0000 100.6 81 28 140/70 96 Ventilator 30% 09/15 0000 96 Ventilator 30% 09/14 2232 89 30 156/70 09/14 2201 30 09/14 2000 97 Ventilator 30% 09/14 1924 30 09/14 1600 98 Ventilator 30% 09/14 1600 97.0 80 30 142/60 98 Ventilator 30% 09/14 1551 30 09/14 1412 30 09/14 1200 96 Ventilator 30% Intake & Output 09/15 1600 09/15 0800 09/15 0000 Intake Total 615 1626 Output Total 1295 2245 Balance -680 -619 Intake, IV 575 546 Intake, Tube 480 Feeding Intake, Tube 40 600 Irrigant Output, Stool 200 400 Output, Urine 1095 1845 Physical Exam Other Physical Findings: He is sedated on the ventilator Lungs are clear Heart regular rhythm with no murmur Extremities erythema over the right ankle, with a dressing intact over the right foot; 1+ edema both lower extremities Barber catheter remains in place Results Last 24 Hours of Lab Results: Laboratory Tests 09/15 09/15 0505 0415 Blood Gas pH (7.35 - 7.45 PH) 7.48 H pCO2 (35 - 45 TORR) 30 L pO2 (80 - 100 TORR) 95 HCO3 (21 - 28 MEQ/L) 22 ABG O2 Sat (Measured) (>96.0 %) 97.0 P-50 (Temp Corrected) N Carboxyhemoglobin (1.5 - 5.0 %) 0.1 L O2 Concentration % 30% Temperature (97.0 - 100.0 FARH) 98.6 Respiration Rate (BPM) 14 O2 Delivery Method ESPRIT Vent Mode AC Expiratory Pressure (CMH2O/P) 5 Tidal Volume (CC) 550 Chemistry Sodium (137 - 145 mmol/L) 147 H Potassium (3.5 - 5.1 mmol/L) 3.9 Chloride (98 - 107 mmol/L) 110 H Carbon Dioxide (22 - 30 mmol/L) 22 Anion Gap (5 - 16) 15 BUN (9 - 20 mg/dL) 75 H Creatinine (0.7 - 1.2 mg/dL) 2.3 H Estimated GFR (>60 ml/min) 29 L Glucose (65 - 99 mg/dL) 209 H Calcium (8.4 - 10.2 mg/dL) 8.7 Phosphorus (2.5 - 4.5 mg/dL) 4.6 H Magnesium (1.6 - 2.3 mg/dL) 1.9 Total Bilirubin (0.2 - 1.3 mg/dL) 1.0 AST (17 - 59 U/L) 48 ALT (21 - 72 U/L) 34 Albumin (3.5 - 5.0 g/dL) 2.4 L Hematology CBC w Diff NO MAN DIFF REQ WBC (4.8 - 10.8 /CUMM) 10.4 RBC (4.70 - 6.10 /CUMM) 3.42 L Hgb (14.0 - 18.0 G/DL) 9.1 L Hct (42 - 52 %) 28.0 L MCV (80.0 - 94.0 FL) 81.8 MCH (27.0 - 31.0 PG) 26.5 L MCHC (33.0 - 37.0 G/DL) 32.4 L RDW (11.5 - 14.5 %) 18.8 H Plt Count (130 - 400 /CUMM) 189 MPV (7.4 - 10.4 FL) 12.1 H Gran % (42.2 - 75.2 %) 79.2 H Lymphocytes % (20.5 - 51.1 %) 11.3 L Monocytes % (1.7 - 9.3 %) 8.2 Eosinophils % (0 - 5 %) 1.2 Basophils % (0.0 - 2.0 %) 0.1 Absolute Granulocytes (1.4 - 6.5 /CUMM) 8.2 H Absolute Lymphocytes (1.2 - 3.4 /CUMM) 1.2 Absolute Monocytes (0.10 - 0.60 /CUMM) 0.8 H Absolute Eosinophils (0.0 - 0.7 /CUMM) 0.1 Absolute Basophils (0.0 - 0.2 /CUMM) 0 Miscellaneous Phlebotomy Draw Site RIGHT RADIAL Last 24 Hours of Shady Results: Right foot culture September 12 positive for Group B strep Blood cultures x 2 September 11 remain negative Stool C. difficile September 12 negative Recent Imaging Studies: Chest x-ray September 15 negative Assessment/Plan ID Impression: Overall stable, with continued improvement in his renal function, with stable respiratory status, though with persistent fevers, lower grade over the past 2 days, with his white blood cell count now normal, on Unasyn, Day 9 of treatment for Group B strep sepsis/mitral valve endocarditis secondary to an infection in the right foot foot, status post several drainage procedures, most recently 3 days ago at the bedside by the bulk pigment reducer, with plans for a formal I&D in the OR later today. He may have underlying osteomyelitis and will await the OR findings but, given his JESUS findings, he will require a 4-6 week course of IV antibiotics. His hospital course has also been complicated by infarcts to the brain, felt to be lacunar, but possibly embolic given the JESUS findings. His diarrhea may be related to his tube feedings, with his C. difficile negative. Suggestion: 1. Await drainage in the OR later today 2. Cardiothoracic surgery evaluation 3. Would proceed with placement of a Pro-Line when stable 4. Continue Unasyn
[2017-09-15 12:00] VITALS: BP 108/56
--- NOTE | 2017-09-15 13:33 | CT SCAN REPORT ---
EXAMINATION: CT HEAD WITHOUT CONTRAST CLINICAL INFORMATION: History of lacunar infarction and atrial fibrillation. Evaluate for hemorrhagic stroke. COMPARISON: 09/08/2017 and 09/12/2017. TECHNIQUE: Contiguous axial imaging was performed from the skull base to vertex without intravenous administration of contrast. DLP: 622 mGy-cm FINDINGS: The ignacio-white matter differentiation is well preserved. No evidence of an acute major vascular territory infarction, hemorrhage, extra-axial fluid collection, mass or midline shift. The ventricles have normal size and configuration. Mild atherosclerotic calcification of cavernous carotid arteries. The calvarium is intact and the mastoid air cells and middle ear cavities are well aerated. Again noted is mucosal thickening of the sphenoid sinus and anterior ethmoid air cells. The visualized orbits, globes and temporomandibular joints are unremarkable. IMPRESSION: No acute intracranial pathology compared to 09/12/2017. No evidence of acute cerebral infarction or intracranial hemorrhage.
--- NOTE | 2017-09-15 14:24 | Operative Report ---
Operative/Inv Procedure Report Surgery Date: 09/15/17 Name of Procedure: Incision and drainage of right foot through the deep fascia multiple bursal compartments Pre-Operative Diagnosis: Abscess, right foot, rule out necrotizing soft tissue infection Post-Operative Diagnosis: Abscess, right foot, rule out necrotizing soft tissue infection Estimated Blood Loss: less than 50ml Surgeon/Senior Benefits Manager: Etienne Ojeda DPM Anesthesia: general endotracheal tube, 20 cc 50/50 0.5% Marcaine plain, 2% Lidocaine plain right ankle block Specimens: None Microbiology: None Tourniquet: None Complications: None Condition: Stable, intubated Operative Indication: This is a 61-year-old male with type 2 diabetes, who was admitted on the for sepsis and rule out CVA who was subsequently intubated 2 days later and transferred to intensive care. Podiatry was consulted on the to evaluate a right foot with worsening clinical appearance. Patient had a CAT scan prior to my consultation which newly diagnosed him with Charcot neuroarthropathy across the mid tarsal and tarsometatarsal joints, and the patient also had increased redness and swelling in the area and the beginnings of ulcerations on the lateral bony prominences. The patient was seen and examined, and initially a bedside incision and drainage was performed under local anesthesia with sedation already on board from his general treatment. His white count improved from 16- 10 over the weekend, and he only had one fever in that time, but the wound continued to drain significant amounts of purulence, and it was decided yesterday morning that the patient be taken for an operative incision and drainage to remove the remainder of this purulence. Due to the patient being intubated and critically ill, the patient's , whom I have had frequent communication with since consultation, has been acting has his healthcare proxy and signing informed consent on his behalf. Operative/Procedure Note Note: After the right foot and ankle were prepped and draped in usual sterile manner with Betadine, attention was directed to the dorsal lateral aspect of the right hindfoot. A 1 cm stab incision had already been present from the patient's prior bedside incision and drainage. A periosteal elevator was inserted into the same at approximately to mirror the pattern of an active tunnel within the connective tissue planes, and this 1 cm incision was expanded to 6 cm with a #15 blade along that axis towards the lateral gutter of the ankle. The soft tissue planes were then bluntly explored, and an additional 20-25 cc of purulence was identified and expressed from the lateral ankle and hindfoot towards the incision. No purulence was found medially anteriorly or distally, and all of the abnormal findings were limited to the superficial connective tissue planes. There was no bone exposed, and there was no necrotic tissue underneath the incision save for some pieces of extensor retinaculum. After being fully expressed and all tissue planes to the point were no further purulence was found , the surgical wound was then pulse irrigated with a 3 L combination of normal saline and bacitracin solution. The surgical wound was then compressed for 60 seconds gently to stop any associated capillary and venous oozing. The surgical wound was then packed with one-inch plain packing, dressed with multiple fluff gauzes multiple abdominal pads and one roll of Zeina, and one 4 inch Nico bandage. The patient was escorted from the operating room to the postanesthesia care unit by both surgical and anesthesiology teams in no apparent distress, in stable condition, and was promptly returned to the intensive care unit for further care. The patient will be returned to the operating room on Friday for a further washout. I had an extensive discussion with the patient's detailing the plan of care , discussing future treatment options and all possible adverse events related to this procedure. I also informed the patient's that I will be relocating after the end of August, and that if still admitted, his care will be transferred to Dr. Rylan Caballero after September 23. I will follow-up on the patient tomorrow morning, and return the patient to the OR on Friday. CC: Jeffery GARCIA,Xavier Davis
[2017-09-15 16:00] VITALS: BP 126/60
--- NOTE | 2017-09-15 17:39 | PN- Cardiology ---
Subjective Subjective: Remains intubated and sedated. Monitor reveals sinus rhythm. Objective Vital Signs and I&Os Date Time Temp Pulse Resp B/P B/P Pulse O2 O2 Flow FiO2 Mean Ox Delivery Rate 09/14 2232 89 30 156/70 09/14 2201 30 09/14 2000 97 Ventilator 30% 09/14 1924 30 Intake & Output 09/14 1600 09/14 0800 09/14 0000 Intake Total 1207 1300.5 1457.7 Output Total 2500 1200 2190 Balance -1293 100.5 -732.3 Intake, IV 127 159.5 287.7 Intake, Oral 0 0 Intake, Tube 480 421 480 Feeding Intake, Tube 600 720 690 Irrigant Number 600 Bowel Movements Output, Stool 200 400 300 150 Output, Urine 600 1095 1845 2500 900 2040 Physical Exam: Well-developed overweight middle-aged male who is intubated. Vital signs: See above. Neck: No JVD, no bruits. Lungs: Clear to auscultation anteriorly. Heart: S1, S2 with grade 1/6 systolic murmur. No gallop or rub. Abdomen: Soft, nontender, positive bowel sounds. Extremities: 1+ bilateral lower extremity edema. Assessment/Plan Assessment/Plan 65-yo-w-m w/ hx HTN, HLD, DM, CAD s/p GA & CABG adm to the ICU 09/05/2017 w/ stroke syndrome & "new" AF w/ RVR s/p spontaneous cardioversion to SR which is being maintained, acute hypoxemic/hypercapnic respiratory failure felt 2/2 HFpEF , DEMETRIO on CKD, group B beta strep bacteremia of unknown source, thrombocytopenia, etc. Recommendations: * Continue ICU management. * Maintaining sinus rhythm and recent JESUS revealed normal left atrial appendage w/o thrombus therefore no urgency for AC. * Continue to follow-up on ID recommendations regarding antimicrobial therapy. * DVT prophylaxis.
[2017-09-16] VITALS: BP 98/52
[2017-09-16 04:50] LABS: ABSOLUTE BASOPHIL COUNT 0 /CUMM (0.0-0.2); ABSOLUTE EOSINOPHIL COUNT 0.2 /CUMM (0.0-0.7); ABSOLUTE GRANULOCYTE CT 9.1 /CUMM (1.4-6.5); ABSOLUTE LYMPH COUNT 1.4 /CUMM (1.2-3.4); ABSOLUTE MONOCYTE COUNT 0.9 /CUMM (0.10-0.60); BASOPHIL % 0.4 % (0.0-2.0); EOSINOPHIL % 1.8 % (0-5); GRANULOCYTE % 77.8 % (42.2-75.2); HEMATOCRIT 27.1 % (42-52); MEAN CORPUSCULAR HGB 26.7 PG (27.0-31.0); MEAN CORPUSCULAR VOLUME 83.4 FL (80.0-94.0); MEAN PLATELET VOLUME 11.8 FL (7.4-10.4); PLATELET COUNT 232 /CUMM (130-400); RBC DISTRIBUTION WIDTH 19.2 % (11.5-14.5); RED BLOOD CELL CT 3.25 /CUMM (4.70-6.10); WHITE BLOOD CELL COUNT 11.8 /CUMM (4.8-10.8)
--- NOTE | 2017-09-16 07:01 | PN- Resident CRCU ---
Subjective HPI/CRCU Issues: Sepsis Bacteremia (Group B STREP) PAF ?endocarditis Hyperglycemia Intubated (day 8) Intake 24 hours: 3525 Output 24 hours: 24 Hour Events: continues to have low grade temperature up to 100 F with persistent loose bowel movements. Off Ativan drip but requires intermittent sedation with dilaudidd and Ativan for agitation. His white count has trended back up today. Objective Vital Signs & I&O Last 8 Hrs of Vitals and I&O: Intake & Output 09/16 0800 Intake Total 1378 Output Total 950 Balance 428 Intake, IV 347 Intake, Oral 0 Intake, Tube 431 Feeding Intake, Tube 600 Irrigant Output, Stool 150 Output, Urine 800 Exam General Appearance: intubated, mild distress, sedated but responsive to verbal commands Head: atraumatic, normal appearance Respiratory: normal breath sounds, chest non-tender Cardiovascular: regular rate/rhythm, murmur Gastrointestinal: soft, non-tender Extremities: bilateral edema of feet Cranial Nerves: normal hearing Skin: intact, normal color Skin Temp/Moisture Exam: Cool/Dry (hands) Sepsis Skin Exam (color): Normal for Ethnicity Weaning Parameters NIF: 32 Minute Volume: 15 Resp rate: 32 Vt: 550 Heart Rate: 75 Weaning Schedule Start Time: 1610 Minute Volume: 15 Resp Rate: 32 Vt: 550 Heart Rate: 75 End Time: 1710 Minute Volume: 14 Resp Rate: 40 Vt: 290 Heart Rate: 79 Current Medications: Current Medications Sig/Jasvir Start time Last Medication Dose Route Stop Time Status Admin Acetaminophen 1,000 MG .STK-MED ONE 09/15 2056 DC IV 09/15 2057 Acetaminophen 650 MG Q6P PRN 09/06 0345 AC PO Acetaminophen 1,000 MG Q6P PRN 09/06 0345 AC 09/16 IV 0748 Albuterol Sulfate 3 ML Q4P PRN 09/15 1715 AC INH Ampicillin Sodium/ 3,000 MG Q8H 09/14 1000 AC 09/16 Sulbactam Sodium IV 0144 Sodium Chloride 100 ML Aspirin 81 MG DAILY 09/15 1043 AC 09/15 PO 1439 Aspirin Buffered 81 MG DAILY 09/06 0900 DC 09/14 PO 0948 Chlorhexidine 15 ML BID 09/11 09 AC 09/16 Gluconate PO 0754 Dextrose/Water 1,000 ML ONCE ONE 09/16 0745 AC 09/16 IV 07/24 2104 0748 Dextrose/Water 1,000 ML ONCE ONE 09/15 0815 DC 09/15 IV 09/15 2134 0814 Fentanyl Citrate 100 MCG .STK-MED ONE 09/15 1232 DC IM 09/15 1233 Folic Acid 1 MG DAILY 09/07 1023 AC 09/15 PO 0905 Heparin Sodium 5,000 UNIT Q8H 09/16 0600 AC 09/16 (Porcine) SC 0546 Heparin Sodium 5,000 UNIT Q8H 09/13 1712 DC 09/15 (Porcine) SC 1621 Hydromorphone HCl 1 MG Q4P PRN 09/10 2215 AC 09/16 IV 0358 Insulin Aspart 0 Q4 09/15 1800 AC 09/16 SC 0546 Insulin Aspart 0 Q4 09/15 1000 DC 09/15 SC 1439 Insulin Detemir 50 UNITS BID 09/15 2100 AC 09/15 SC 2152 Insulin Detemir 25 UNITS ONCE ONE 09/15 0815 DC 09/15 SC 09/15 0816 0905 Insulin Human Regular 0 Q6 09/14 2359 DC 09/15 SC 0605 Lorazepam 2 MG ONE ONE 09/15 1500 DC 09/15 IV 09/15 1501 1455 Lorazepam 50 MG Q24H 09/13 1830 DC 09/13 Sodium Chloride 500 ML IV 1927 Metoprolol Tartrate 100 MG BID 09/11 0900 AC 09/15 PO 0906 Multivitamins 1 TAB DAILY 09/07 1023 AC 09/15 PO 0906 Pantoprazole Sodium 40 MG DAILY 09/09 0900 AC 09/15 IV 0905 Thiamine HCl 50 MG DAILY 09/07 1023 09/15 PO 0906 Zinc Oxide 1 GATO TID PRN 09/11 1530 09/13 TOP 1730 Impression/Plan Impression/Problem List Impression: 65 y/o M with PMH of DM, Gout, VT s/p CABG on aspirin/plavix, hypertension and hyperlipidemia was brought to the ED by his after his cigar bander noticed slurred speech during a f/u for podagra. As per the , pt had sudden onset dysarthria, difficulty swallowing and L nasolabial fold drooping. On admission pertinent labs showed leukocytosis (12.8), thrombocytopenia (73), BUN/CR (58/2.3 ). EKG showed a-fib with RVR on admission with HR in the 180s, and pt was put on cardizem drip; he was admitted to the ICU for further management. Assessment and Plan: 1. Acute Hypoxemic Respiratory Failure s/p intuabtion (day 9) * Remains on mechanical ventilation * Off sedation * prn ativan and dilaudidd for sedation. 2. Atrial Fibrilliation with RVR * remains in NSR * Continue Metoprolol 100mg BID * No urgency for AC as patient did not have any thrombus in left atrial appendage. * Repeat head CT was negative for infarcts. 3. DEMETRIO * Improving. * Trend Renal function 4. Lacunar Infarct * No deficits noticed at this time but further evaluation when patient is more awake. * Repeat head CT 09/15 ruled out hemorrhagic conversion 5. Strep B bacteremia with ? endocarditis * Day 11 of antibiotics * Discontinued Unasyn * Started on IV Ampicillin 2g q6. 6. Elevated Troponins - resolved * trops have trended. * likely due to type II VT 7. Hyperglycemia * Improved blood sugars. * Insulin SS adjusted per Endo recs * Levemir 50 units BID. 8. Thrombocytopenia * Decrease in Plt again today. * Monitor CBC * transfused 1 unit pooled platelets on 09/09 which he received for his JESUS 9. Charcot athropathy with swellling/inflammation of right foot * Bedside I&D on 09/12 and 09/14. Patient underwent debridement of abscess in OR yesterday. He will return to the OR tomorrow for a washout. 10. Elevated LFTs - resolved * No need to further monitor 11. Hypernatremia * IV D5W @ 75ml/hr - 1 bag * Increased free water flushes to 400ml q6 Diet: Tube feeds on Glucerna at 60cc/hr. DVT Prophylaxis: SC Heparin x 3 Code: Full Code Problem List: 1. Sepsis due to group B Streptococcus Pain Ratin Tomorrow's Labs & Rationales: CBC, ICU bundle Plan DVT/Prophylaxis: mechanical
[2017-09-16 08:00] VITALS: BP 138/62
--- NOTE | 2017-09-16 08:09 | PN- CRCU ---
Subjective HPI/Critical Care Issues: The patient remains intubated and sedated. He is off Ativan, and he is receiving Dilaudid as needed for pain. He is more awake today, noting he is intermittently following commands. His oxygenation remained stable on the ventilator at 30%. The patient has a low-grade temp of 100 this morning. He continues to have significant diarrhea. He is tolerating tube feeds well. His urine output is excellent. The patient underwent surgical debridement yesterday , and had drainage of the right foot abscess by podiatry. Objective Current Medications: Current Medications Sig/Jasvir Start time Last Medication Dose Route Stop Time Status Admin Acetaminophen 1,000 MG .STK-MED ONE 09/15 2056 DC IV 09/15 2057 Acetaminophen 650 MG Q6P PRN 09/06 0345 AC PO Acetaminophen 1,000 MG Q6P PRN 09/06 0345 AC 09/16 IV 0748 Albuterol Sulfate 3 ML Q4P PRN 09/15 1715 AC INH Ampicillin Sodium/ 3,000 MG Q8H 09/14 1000 AC 09/16 Sulbactam Sodium IV 0144 Sodium Chloride 100 ML Aspirin 81 MG DAILY 09/15 1043 AC 09/15 PO 1439 Aspirin Buffered 81 MG DAILY 09/06 0900 DC 09/14 PO 0948 Chlorhexidine 15 ML BID 09/11 0900 AC 09/16 Gluconate PO 0754 Dextrose/Water 1,000 ML ONCE ONE 09/16 0745 AC 09/16 IV 09/16 2104 0748 Dextrose/Water 1,000 ML ONCE ONE 09/15 0815 DC 09/15 IV 09/15 2134 0814 Fentanyl Citrate 100 MCG .STK-MED ONE 09/15 1232 DC IM 09/15 1233 Folic Acid 1 MG DAILY 09/07 1023 AC 09/15 PO 0905 Heparin Sodium 5,000 UNIT Q8H 09/16 0600 AC 09/16 (Porcine) SC 0546 Heparin Sodium 5,000 UNIT Q8H 09/13 1712 DC 09/15 (Porcine) SC 1621 Hydromorphone HCl 1 MG Q4P PRN 09/10 2215 AC 09/16 IV 0358 Insulin Aspart 0 Q4 09/15 1800 AC 09/16 SC 0546 Insulin Aspart 0 Q4 09/15 1000 DC 09/15 SC 1439 Insulin Detemir 50 UNITS BID 09/15 2100 AC 09/15 SC 2152 Insulin Detemir 25 UNITS ONCE ONE 09/15 0815 DC 09/15 [place] 09/15 0816 0905 Insulin Human Regular 0 Q6 09/14 2359 CA 09/15 [place] 0605 Lorazepam 2 MG ONE ONE 09/15 1500 DC 09/15 IV 09/15 1501 1455 Lorazepam 50 MG Q24H 09/13 1830 DC 09/13 Sodium Chloride 500 ML IV 1927 Metoprolol Tartrate 100 MG BID 09/11 09 09/15 PO 0906 Multivitamins 1 TAB DAILY 09/07 1023 09/15 PO 0906 Pantoprazole Sodium 40 MG DAILY 09/09 0900 AC 09/15 IV 0905 Thiamine HCl 50 MG DAILY 09/07 1023 09/15 PO 0906 Zinc Oxide 1 GATO TID PRN 09/11 1530 09/13 TOP 1730 Vital Signs & I&O Last 24 Hrs of Vitals and I&O: Vital Signs Date Time Temp Pulse Resp B/P B/P Pulse O2 O2 Flow FiO2 Mean Ox Delivery Rate 09/16 0748 100.0 09/16 0607 30 09/16 0400 97 Ventilator 30% 09/16 0337 30 09/16 0012 30 09/16 0000 96 Ventilator 30% 09/16 0000 98.5 77 21 98/52 96 Ventilator 30% 09/15 2243 30 09/15 2154 98.4 09/15 2152 79 98/48 09/15 2101 100.0 09/15 2000 96 Ventilator 30% 09/15 1950 30 09/15 1701 30 09/15 1600 98.5 74 19 126/60 95 Ventilator 30% 09/15 1600 95 Ventilator 30% 09/15 1440 30 09/15 1200 95 Ventilator 30% 09/15 1200 98.6 67 16 108/56 98 Ventilator 30% 09/15 1140 30 09/15 0906 153/69 09/15 0900 30 09/15 0800 98.2 75 22 128/58 98 Ventilator 30% 09/15 0800 98 Ventilator 30% Intake & Output 09/16 0800 09/16 0000 09/15 1600 Intake Total 1378 1526.9 620.1 Output Total 950 800 600 Balance 428 726.9 20.1 Intake, IV 347 842.9 520.1 Intake, Oral 0 0 Intake, Tube 431 384 Feeding Intake, Tube 600 300 100 Irrigant Output, Stool 150 100 Output, Urine 800 700 600 Physical Exam General Appearance: Lethargic and intubated, no distress, trying to follow commands Head: atraumatic, normal appearance Eyes: Bilateral: normal appearance, PERRL Neck: normal inspection, supple Respiratory: bilateral anterior rhonchi heard, lung sounds are clear otherwise Cardiovascular: S1 and S2 heard Gastrointestinal: normal bowel sounds, soft, non-tender Extremities: Right foot swelling, right lower extremity surgical dressings in place Skin: intact, warm and dry Results Last 24 Hrs of Lab Results: Laboratory Tests 09/16/17 0525: pH 7.43, pCO2 33 L, pO2 96, HCO3 22, ABG O2 Sat (Measured) 98.0, P-50 (Temp Corrected) N, O2 Concentration % 30, Temperature 98.0, Respiration Rate 14, O2 Delivery Method VENT, Vent Mode AC, Expiratory Pressure 5, Tidal Volume 550, Phlebotomy Draw Site RIGHT BRACHIAL 09/16/17 0402: Anion Gap 13, Estimated GFR 32 L, Glucose 136 H, Calcium 8.5, Phosphorus 5.0 H, Magnesium 1.9, Total Bilirubin 0.8, AST 72 H, ALT 36, Albumin 2.5 L, CBC w Diff NO MAN DIFF REQ, RBC 3.25 L, MCV 83.4, MCH 26.7 L, MCHC 32.0 L, RDW 19.2 H, MPV 11.8 H, Gran % 77.8 H, Lymphocytes % 12.0 L, Monocytes % 8.0, Eosinophils % 1.8, Basophils % 0.4, Absolute Granulocytes 9.1 H, Absolute Lymphocytes 1.4, Absolute Monocytes 0.9 H, Absolute Eosinophils 0.2, Absolute Basophils 0 Impression/Plan Impression/Plan Impression/Plan: 1. Multiple organ system failure secondary to Group B strep bacteremia and mitral valve endocarditis. Patient still has low-grade temperatures, and currently is on day 10 of Unasyn. 2. Acute on chronic renal failure, creatinine trending down slowly, secondary to ATN. 3. Right lower extremity foot abscess and fractures, s/p debridement (09/15/17). 4. Acute hypoxemic respiratory failure in the setting of fluid overload versus aspiration pneumonia. 5. Hypernatremia. 6. Atrial fibrillation, in sinus rhythm. 7. CVA. 8. Positive troponins, suggestive of demand ischemia. 9. Cirrhosis, LFTs continue to improve. 10. Encephalopathy. 11. Malnutrition, on tube feeds. 12. Diarrhea secondary to tube feeds? C. difficile negative. Recommendations: * Continue to hold off Ativan. * Continue Dilaudid/IV Tylenol for pain control. Attempt to minimize sedation. Keep SAS now at 4. * Give D5W 1 L over the next 24 hours today. * Continue free water flushes. * Tube feeds at goal. * Will discuss starting anticoagulation with cardiology today if no intervention planned. * Continue current ventilator settings. * Begin weaning trials. Will consider extubation when patient more awake and alert. * Continue nebs/total respiratory care. * Continue IV Unasyn, follow-up ID input. * Vent bundle/DVT and GI prophylaxis at all times. * Out of bed to chair daily. * Agree with Proline placement. * Appreciate all consultants input. * The patient remains critically ill. I discussed plan of care with the house staff and asked them to contact me if the patients condition changes or if they have any questions.
--- NOTE | 2017-09-16 08:54 | PN- Podiatry ---
Subjective Subjective: Patient seen and evaluated POD1 I&D right foot. Tmax o/n 100F. Pt remains intubated and in mild distress w/VSS. Review of Systems: Unable to perform ROS secondary to pt being intubated. He is not alert or verbal , but is responsive to painful stimuli. Objective Vital Signs and I&Os Vital Signs Date Time Temp Pulse Resp B/P B/P Pulse O2 O2 Flow FiO2 Mean Ox Delivery Rate 09/16 0815 30 09/16 0800 100.0 91 25 138/62 97 Ventilator 30% 09/16 0748 100.0 09/16 0607 30 09/16 0400 97 Ventilator 30% 09/16 0337 30 09/16 0012 30 09/16 0000 96 Ventilator 30% 09/16 0000 98.5 77 21 98/52 96 Ventilator 30% 09/15 2243 30 09/15 2154 98.4 09/15 2152 79 98/48 09/15 2101 100.0 09/15 2000 96 Ventilator 30% 09/15 1950 30 09/15 1701 30 09/15 1600 98.5 74 19 126/60 95 Ventilator 30% 09/15 1600 95 Ventilator 30% 09/15 1440 30 09/15 1200 95 Ventilator 30% 09/15 1200 98.6 67 16 108/56 98 Ventilator 30% 09/15 1140 30 09/15 0906 153/69 09/15 0900 30 Intake & Output 09/16 1600 09/16 0800 09/16 0000 09/15 1600 09/15 0800 09/15 0000 Intake Total 1378 1526.9 620.1 615 1626 Output Total 950 837 010 8904 2245 Balance 428 726.9 20.1 -680 -619 Intake, IV 347 842.9 520.1 575 546 Intake, Oral 0 0 Intake, Tube 431 384 480 Feeding Intake, Tube 600 300 100 40 600 Irrigant Output, Stool 150 100 200 400 Output, Urine 800 147 282 4503 1845 Physical Exam: Neurovascular exam and musculoskeletal exam are unchanged. Dressing is clean, dry, and intact with no strikethrough. Current Medications: Current Medications Sig/Jasvir Start time Last Medication Dose Route Stop Time Status Admin Acetaminophen 1,000 MG .STK-MED ONE 09/15 2056 DC IV 09/15 2057 Acetaminophen 650 MG Q6P PRN 09/06 0345 AC PO Acetaminophen 1,000 MG Q6P PRN 09/06 0345 AC 09/16 IV 0748 Albuterol Sulfate 3 ML Q4P PRN 09/15 1715 AC INH Ampicillin Sodium/ 3,000 MG Q8H 09/14 1000 AC 09/16 Sulbactam Sodium IV 0144 Sodium Chloride 100 ML Aspirin 81 MG DAILY 09/15 1043 AC 09/15 PO 1439 Aspirin Buffered 81 MG DAILY 09/06 0900 DC 09/14 PO 0948 Chlorhexidine 15 ML BID 09/11 0900 AC 09/16 Gluconate PO 0754 Dextrose/Water 1,000 ML ONCE ONE 09/16 0745 AC 09/16 IV 09/16 2104 0748 Dextrose/Water 1,000 ML ONCE ONE 09/15 0815 DC 09/15 IV 09/15 2134 0814 Fentanyl Citrate 100 MCG .STK-MED ONE 09/15 1232 DC IM 09/15 1233 Folic Acid 1 MG DAILY 09/07 1023 09/15 PO 0905 Furosemide 40 MG 0815 09/16 0815 DC IV 09/16 0816 Heparin Sodium 5,000 UNIT Q8H 09/16 0600 AC 09/16 (Porcine) SC 0546 Heparin Sodium 5,000 UNIT Q8H 09/13 1712 DC 09/15 (Porcine) SC 1621 Hydromorphone HCl 1 MG Q4P PRN 09/10 2215 09/16 IV 0358 Insulin Aspart 0 Q4 09/15 1800 09/16 SC 0546 Insulin Aspart 0 Q4 09/15 1000 NC 09/15 SC 1439 Insulin Detemir 50 UNITS BID 09/15 2100 09/15 SC 2152 Lorazepam 2 MG ONE ONE 09/15 1500 DC 09/15 IV 09/15 1501 1455 Lorazepam 50 MG Q24H 09/13 1830 DC 09/13 Sodium Chloride 500 ML IV 1927 Metoprolol Tartrate 100 MG BID 09/11 0900 AC 09/15 PO 0906 Multivitamins 1 TAB DAILY 09/07 1023 AC 09/15 PO 0906 Pantoprazole Sodium 40 MG DAILY 09/09 0900 AC 09/15 IV 0905 Thiamine HCl 50 MG DAILY 09/07 1023 09/15 PO 0906 Zinc Oxide 1 GATO TID PRN 09/11 1530 09/13 TOP 1730 Results Last 48 Hours of Labs: Laboratory Tests 09/16 09/16 0525 0402 Blood Gas pH (7.35 - 7.45 PH) 7.43 pCO2 (35 - 45 TORR) 33 L pO2 (80 - 100 TORR) 96 HCO3 (21 - 28 MEQ/L) 22 ABG O2 Sat (Measured) (>96.0 %) 98.0 P-50 (Temp Corrected) N O2 Concentration % 30 Temperature (97.0 - 100.0 FARH) 98.0 Respiration Rate (BPM) 14 O2 Delivery Method VENT Vent Mode AC Expiratory Pressure (CMH2O/P) 5 Tidal Volume (CC) 550 Chemistry Sodium (137 - 145 mmol/L) 147 H Potassium (3.5 - 5.1 mmol/L) 4.0 Chloride (98 - 107 mmol/L) 111 H Carbon Dioxide (22 - 30 mmol/L) 23 Anion Gap (5 - 16) 13 BUN (9 - 20 mg/dL) 73 H Creatinine (0.7 - 1.2 mg/dL) 2.1 H Estimated GFR (>60 ml/min) 32 L Glucose (65 - 99 mg/dL) 136 H Calcium (8.4 - 10.2 mg/dL) 8.5 Phosphorus (2.5 - 4.5 mg/dL) 5.0 H Magnesium (1.6 - 2.3 mg/dL) 1.9 Total Bilirubin (0.2 - 1.3 mg/dL) 0.8 AST (17 - 59 U/L) 72 H ALT (21 - 72 U/L) 36 Albumin (3.5 - 5.0 g/dL) 2.5 L Hematology CBC w Diff NO MAN DIFF REQ WBC (4.8 - 10.8 /CUMM) 11.8 H RBC (4.70 - 6.10 /CUMM) 3.25 L Hgb (14.0 - 18.0 G/DL) 8.7 L Hct (42 - 52 %) 27.1 L MCV (80.0 - 94.0 FL) 83.4 MCH (27.0 - 31.0 PG) 26.7 L MCHC (33.0 - 37.0 G/DL) 32.0 L RDW (11.5 - 14.5 %) 19.2 H Plt Count (130 - 400 /CUMM) 232 MPV (7.4 - 10.4 FL) 11.8 H Gran % (42.2 - 75.2 %) 77.8 H Lymphocytes % (20.5 - 51.1 %) 12.0 L Monocytes % (1.7 - 9.3 %) 8.0 Eosinophils % (0 - 5 %) 1.8 Basophils % (0.0 - 2.0 %) 0.4 Absolute Granulocytes (1.4 - 6.5 /CUMM) 9.1 H Absolute Lymphocytes (1.2 - 3.4 /CUMM) 1.4 Absolute Monocytes (0.10 - 0.60 /CUMM) 0.9 H Absolute Eosinophils (0.0 - 0.7 /CUMM) 0.2 Absolute Basophils (0.0 - 0.2 /CUMM) 0 Miscellaneous Phlebotomy Draw Site RIGHT BRACHIAL 09/15 09/15 2195 0414 Blood Gas pH (7.35 - 7.45 PH) 7.48 H pCO2 (35 - 45 TORR) 30 L pO2 (80 - 100 TORR) 95 HCO3 (21 - 28 MEQ/L) 22 ABG O2 Sat (Measured) (>96.0 %) 97.0 P-50 (Temp Corrected) N Carboxyhemoglobin (1.5 - 5.0 %) 0.1 L O2 Concentration % 30% Temperature (97.0 - 100.0 FARH) 98.6 Respiration Rate (BPM) 14 O2 Delivery Method ESPRIT Vent Mode AC Expiratory Pressure (CMH2O/P) 5 Tidal Volume (CC) 550 Chemistry Sodium (137 - 145 mmol/L) 147 H Potassium (3.5 - 5.1 mmol/L) 3.9 Chloride (98 - 107 mmol/L) 110 H Carbon Dioxide (22 - 30 mmol/L) 22 Anion Gap (5 - 16) 15 BUN (9 - 20 mg/dL) 75 H Creatinine (0.7 - 1.2 mg/dL) 2.3 H Estimated GFR (>60 ml/min) 29 L Glucose (65 - 99 mg/dL) 209 H Calcium (8.4 - 10.2 mg/dL) 8.7 Phosphorus (2.5 - 4.5 mg/dL) 4.6 H Magnesium (1.6 - 2.3 mg/dL) 1.9 Total Bilirubin (0.2 - 1.3 mg/dL) 1.0 AST (17 - 59 U/L) 48 ALT (21 - 72 U/L) 34 Albumin (3.5 - 5.0 g/dL) 2.4 L Hematology CBC w Diff NO MAN DIFF REQ WBC (4.8 - 10.8 /CUMM) 10.4 RBC (4.70 - 6.10 /CUMM) 3.42 L Hgb (14.0 - 18.0 G/DL) 9.1 L Hct (42 - 52 %) 28.0 L MCV (80.0 - 94.0 FL) 81.8 MCH (27.0 - 31.0 PG) 26.5 L MCHC (33.0 - 37.0 G/DL) 32.4 L RDW (11.5 - 14.5 %) 18.8 H Plt Count (130 - 400 /CUMM) 189 MPV (7.4 - 10.4 FL) 12.1 H Gran % (42.2 - 75.2 %) 79.2 H Lymphocytes % (20.5 - 51.1 %) 11.3 L Monocytes % (1.7 - 9.3 %) 8.2 Eosinophils % (0 - 5 %) 1.2 Basophils % (0.0 - 2.0 %) 0.1 Absolute Granulocytes (1.4 - 6.5 /CUMM) 8.2 H Absolute Lymphocytes (1.2 - 3.4 /CUMM) 1.2 Absolute Monocytes (0.10 - 0.60 /CUMM) 0.8 H Absolute Eosinophils (0.0 - 0.7 /CUMM) 0.1 Absolute Basophils (0.0 - 0.2 /CUMM) 0 Miscellaneous Phlebotomy Draw Site RIGHT RADIAL Assessment/Plan Assessment/Plan 61 y/o male with NIDDM and Charcot neuroarthropathy of the right foot, with Group B strep sepsis and +bacteremia, +endocarditis, stable and improving POD1 I &D right foot. Pt seen and evaluated at bedside Cont directed IVABx therapy. Tissue cx from Bedside I&D 09/12 consistent with other cultures. Will return pt to OR tomorrow afternoon for washout and debridement. Intraoperative findings suggested proximal tracking from the incision in the superficial subcutaneous tissues and no deep involvement consistent with Group B strep subacute necrotizing infections. Will continue to monitor surrounding skin in hopes of salvage. Pt has had stable WBC and no fevers >38C for 2 days. Problem List: 1. Sepsis due to group B Streptococcus 2. Charcot's arthropathy Core Measures Venous Thromboembolism VTE Risk Factors Age>40 No Mechanical VTE Prophylaxis d/t N/A MechProphylax Ordered No VTE Pharm Prophylaxis d/t NA PharmProphylax ordered
--- NOTE | 2017-09-16 09:06 | PN- Diabetes ---
Assessment/Plan Diabetes Assessment: 61 y/o male with a complicated past medical history, was admitted for a stroke complicated with beta strep B sepsis, right LE cellulitis, ? endocarditis, acute renal insufficiency. He remains intubated and has been on tube feeding of Glucerna at 60 ml/hour. He was put on insulin drip on 09/13/2017 which was discontinued after his glucose levels were better controlled. Currently he is on Levemir 50 units twice a day; Novolog coverage every 4 hours. In addition, he is on D5w at 75 ml/hour. His FSGs were 188, 178 and 131. The am lab still showed sodium of 147. Plan: continue the current D5W; continue the current insulin regimen; monitor FSGs and electrolytes. will follow. Subjective Subjective: patient remains intubated. Objective Last 24 Hrs of Vital Signs/I&O Vital Signs Date Time Temp Pulse Resp B/P B/P Pulse O2 O2 Flow FiO2 Mean Ox Delivery Rate 09/16 0901 89 129/60 09/16 0900 99.7 09/16 0815 30 09/16 0800 97 Ventilator 30% 09/16 0800 100.0 91 25 138/62 97 Ventilator 30% 09/16 0748 100.0 09/16 0607 30 09/16 0400 97 Ventilator 30% 09/16 0337 30 09/16 0012 30 09/16 0000 96 Ventilator 30% 09/16 0000 98.5 77 21 98/52 96 Ventilator 30% 09/15 2243 30 09/15 2154 98.4 09/15 2152 79 98/48 09/15 2101 100.0 09/15 2000 96 Ventilator 30% 09/15 1950 30 09/15 1701 30 09/15 1600 98.5 74 19 126/60 95 Ventilator 30% 09/15 1600 95 Ventilator 30% 09/15 1440 30 09/15 1200 95 Ventilator 30% 09/15 1200 98.6 67 16 108/56 98 Ventilator 30% 09/15 1140 30 09/15 0906 153/69 Intake & Output 09/16 1600 09/16 0800 07 0000 Intake Total 1378 1526.9 Output Total 950 800 Balance 428 726.9 Intake, IV 347 842.9 Intake, Oral 0 0 Intake, Tube 431 384 Feeding Intake, Tube 600 300 Irrigant Output, Stool 150 100 Output, Urine 800 700 Findings Pertinent Lab/Shady Results: Laboratory Tests 09/16 09/16 2482 8057 Blood Gas pH (7.35 - 7.45 PH) 7.43 pCO2 (35 - 45 TORR) 33 L pO2 (80 - 100 TORR) 96 HCO3 (21 - 28 MEQ/L) 22 ABG O2 Sat (Measured) (>96.0 %) 98.0 P-50 (Temp Corrected) N O2 Concentration % 30 Temperature (97.0 - 100.0 FARH) 98.0 Respiration Rate (BPM) 14 O2 Delivery Method VENT Vent Mode AC Expiratory Pressure (CMH2O/P) 5 Tidal Volume (CC) 550 Chemistry Sodium (137 - 145 mmol/L) 147 H Potassium (3.5 - 5.1 mmol/L) 4.0 Chloride (98 - 107 mmol/L) 111 H Carbon Dioxide (22 - 30 mmol/L) 23 Anion Gap (5 - 16) 13 BUN (9 - 20 mg/dL) 73 H Creatinine (0.7 - 1.2 mg/dL) 2.1 H Estimated GFR (>60 ml/min) 32 L Glucose (65 - 99 mg/dL) 136 H Calcium (8.4 - 10.2 mg/dL) 8.5 Phosphorus (2.5 - 4.5 mg/dL) 5.0 H Magnesium (1.6 - 2.3 mg/dL) 1.9 Total Bilirubin (0.2 - 1.3 mg/dL) 0.8 AST (17 - 59 U/L) 72 H ALT (21 - 72 U/L) 36 Albumin (3.5 - 5.0 g/dL) 2.5 L Hematology CBC w Diff NO MAN DIFF REQ WBC (4.8 - 10.8 /CUMM) 11.8 H RBC (4.70 - 6.10 /CUMM) 3.25 L Hgb (14.0 - 18.0 G/DL) 8.7 L Hct (42 - 52 %) 27.1 L MCV (80.0 - 94.0 FL) 83.4 MCH (27.0 - 31.0 PG) 26.7 L MCHC (33.0 - 37.0 G/DL) 32.0 L RDW (11.5 - 14.5 %) 19.2 H Plt Count (130 - 400 /CUMM) 232 MPV (7.4 - 10.4 FL) 11.8 H Gran % (42.2 - 75.2 %) 77.8 H Lymphocytes % (20.5 - 51.1 %) 12.0 L Monocytes % (1.7 - 9.3 %) 8.0 Eosinophils % (0 - 5 %) 1.8 Basophils % (0.0 - 2.0 %) 0.4 Absolute Granulocytes (1.4 - 6.5 /CUMM) 9.1 H Absolute Lymphocytes (1.2 - 3.4 /CUMM) 1.4 Absolute Monocytes (0.10 - 0.60 /CUMM) 0.9 H Absolute Eosinophils (0.0 - 0.7 /CUMM) 0.2 Absolute Basophils (0.0 - 0.2 /CUMM) 0 Miscellaneous Phlebotomy Draw Site RIGHT BRACHIAL
--- NOTE | 2017-09-16 09:38 | PN- Cardiology ---
Subjective Subjective: The patient is status post debridement of his right lower extremity. He remains intubated and sedated. He is more alert today. He remains in sinus rhythm on telemetry. Objective Vital Signs and I&Os Vital Signs Date Time Temp Pulse Resp B/P B/P Pulse O2 O2 Flow FiO2 Mean Ox Delivery Rate 09/16 0901 89 129/60 09/16 0900 99.7 09/16 0815 30 09/16 0800 97 Ventilator 30% 09/16 0800 100.0 91 25 138/62 97 Ventilator 30% 09/16 0748 100.0 09/16 0607 30 09/16 0400 97 Ventilator 30% 09/16 0337 30 09/16 0012 30 09/16 0000 96 Ventilator 30% 09/16 0000 98.5 77 21 98/52 96 Ventilator 30% 09/15 2243 30 09/15 2154 98.4 09/15 2152 79 98/48 09/15 2101 100.0 09/15 2000 96 Ventilator 30% 09/15 1950 30 09/15 1701 30 09/15 1600 98.5 74 19 126/60 95 Ventilator 30% 09/15 1600 95 Ventilator 30% 09/15 1440 30 09/15 1200 95 Ventilator 30% 09/15 1200 98.6 67 16 108/56 98 Ventilator 30% 09/15 1140 30 Intake & Output 09/16 1600 09/16 0800 09/16 0000 09/15 1600 09/15 0800 09/15 0000 Intake Total 1378 1526.9 620.1 615 1626 Output Total 950 409 091 4669 2245 Balance 428 726.9 20.1 -680 -619 Intake, IV 347 842.9 520.1 575 546 Intake, Oral 0 0 Intake, Tube 431 384 480 Feeding Intake, Tube 600 300 100 40 600 Irrigant Output, Stool 150 100 200 400 Output, Urine 800 392 108 1396 1845 Physical Exam: Gen: NAD HEENT: normal Lungs: Intubated, clear anteriorly Heart: RRR, S1, S2, 1 out of 6 systolic murmur Abdomen: Soft, nontender, no masses Extremities: 1+ edema Neuro: The patient is intubated and is arousable on the ventilator Current Medications: Current Medications Sig/Jasvir Start time Last Medication Dose Route Stop Time Status Admin Acetaminophen 1,000 MG .STK-MED ONE 09/15 2056 DC IV 09/15 2058 Acetaminophen 650 MG Q6P PRN 09/06 0345 PO Acetaminophen 1,000 MG Q6P PRN 09/06 0345 AC 09/16 IV 0748 Albuterol Sulfate 3 ML Q4P PRN 09/15 1715 AC INH Ampicillin Sodium/ 3,000 MG Q8H 09/14 1000 AC 09/16 Sulbactam Sodium IV 0900 Sodium Chloride 100 ML Aspirin 81 MG DAILY 09/15 1043 AC 09/16 PO 0901 Aspirin Buffered 81 MG DAILY 09/06 0900 DC 09/14 PO 0948 Chlorhexidine 15 ML BID 09/11 0900 AC 09/16 Gluconate PO 0754 Dextrose/Water 1,000 ML ONCE ONE 09/16 0745 AC 09/16 IV 09/16 2104 0748 Dextrose/Water 1,000 ML ONCE ONE 09/15 0815 DC 09/15 IV 09/15 2134 0814 Fentanyl Citrate 100 MCG .STK-MED ONE 09/15 1232 DC IM 09/15 1233 Folic Acid 1 MG DAILY 09/07 1023 AC 09/16 PO 0901 Furosemide 40 MG 0815 09/16 0815 DC 09/16 IV 09/16 0816 0900 Heparin Sodium 5,000 UNIT Q8H 09/16 0600 AC 09/16 (Porcine) SC 0546 Heparin Sodium 5,000 UNIT Q8H 09/13 1712 DC 09/15 (Porcine) NM 1621 Hydromorphone HCl 1 MG Q4P PRN 09/10 2215 AC 09/16 IV 0358 Insulin Aspart 0 Q4 09/15 1800 AC 09/16 SC 0546 Insulin Aspart 0 Q4 09/15 1000 DC 09/15 NM 1439 Insulin Detemir 50 UNITS BID 09/15 2100 AC 09/16 SC 0901 Lorazepam 2 MG ONE ONE 09/15 1500 DC 09/15 IV 09/15 1501 1455 Lorazepam 50 MG Q24H 09/13 1830 DC 09/13 Sodium Chloride 500 ML IV 1927 Metoprolol Tartrate 100 MG BID 09/11 0900 AC 09/16 PO 0901 Multivitamins 1 TAB DAILY 09/07 1023 AC 09/16 PO 0901 Pantoprazole Sodium 40 MG DAILY 09/09 0900 AC 09/16 IV 0900 Thiamine HCl 50 MG DAILY 09/07 1023 AC 07/24 PO 0901 Zinc Oxide 1 GATO TID PRN 09/11 1530 AC 09/13 TOP 1730 Results Last 48 Hrs of Labs/Mics: Laboratory Tests 09/16/17 0525: pH 7.43, pCO2 33 L, pO2 96, HCO3 22, ABG O2 Sat (Measured) 98.0, P-50 (Temp Corrected) N, O2 Concentration % 30, Temperature 98.0, Respiration Rate 14, O2 Delivery Method VENT, Vent Mode AC, Expiratory Pressure 5, Tidal Volume 550, Phlebotomy Draw Site RIGHT BRACHIAL 09/16/17 0402: Anion Gap 13, Estimated GFR 32 L, Glucose 136 H, Calcium 8.5, Phosphorus 5.0 H, Magnesium 1.9, Total Bilirubin 0.8, AST 72 H, ALT 36, Albumin 2.5 L, CBC w Diff NO MAN DIFF REQ, RBC 3.25 L, MCV 83.4, MCH 26.7 L, MCHC 32.0 L, RDW 19.2 H, MPV 11.8 H, Gran % 77.8 H, Lymphocytes % 12.0 L, Monocytes % 8.0, Eosinophils % 1.8, Basophils % 0.4, Absolute Granulocytes 9.1 H, Absolute Lymphocytes 1.4, Absolute Monocytes 0.9 H, Absolute Eosinophils 0.2, Absolute Basophils 0 09/15/17 0505: pH 7.48 H, pCO2 30 L, pO2 95, HCO3 22, ABG O2 Sat (Measured) 97.0, P-50 (Temp Corrected) N, Carboxyhemoglobin 0.1 L, O2 Concentration % 30%, Temperature 98.6 , Respiration Rate 14, O2 Delivery Method ESPRIT, Vent Mode AC, Expiratory Pressure 5, Tidal Volume 550, Phlebotomy Draw Site RIGHT RADIAL 09/15/17 0415: Anion Gap 15, Estimated GFR 29 L, Glucose 209 H, Calcium 8.7, Phosphorus 4.6 H, Magnesium 1.9, Total Bilirubin 1.0, AST 48, ALT 34, Albumin 2.4 L, CBC w Diff NO MAN DIFF REQ, RBC 3.42 L, MCV 81.8, MCH 26.5 L, MCHC 32.4 L, RDW 18.8 H, MPV 12.1 H, Gran % 79.2 H, Lymphocytes % 11.3 L, Monocytes % 8.2, Eosinophils % 1.2, Basophils % 0.1, Absolute Granulocytes 8.2 H, Absolute Lymphocytes 1.2, Absolute Monocytes 0.8 H, Absolute Eosinophils 0.1, Absolute Basophils 0 Recent Imaging Studies: Chest x-ray: Stable lines and tubes. No evidence of pulmonary edema. Assessment/Plan Assessment/Plan Assessment: 1. Acute neurologic changes-stable and improved 2. Atrial fibrillation of unclear duration with elevated ventricular rate- currently maintaining sinus rhythm with no further arrhythmia 3. Acute hypoxemic/hypercapnic respiratory failure, likely related to CHF with elevated proBNP 4. Acute on chronic renal insufficiency 5. Lactic acidosis 6. Abnormal liver function tests 7. Elevated troponin 8. Thrombocytopenia, improved 9. Group B beta strep bacteremia. Possible small vegetation on mitral valve. Plan: * Given improvement in thrombus cytopenia, recommend starting Eliquis for recent A. fib and CVA. * Lasix 40 mg IV 1 given today Continue telemetry? Yes
--- NOTE | 2017-09-16 09:41 | RADIOLOGY REPORT ---
EXAMINATION: XR PORTABLE CHEST CLINICAL INFORMATION: Pulmonary edema COMPARISON: Chest x-ray 09/15/2017 TECHNIQUE: Portable frontal view of the chest was obtained. Examination suboptimal secondary to portable nature and patient body habitus. FINDINGS: The endotracheal tube appears to terminate approximately 6 cm above the level of the biju, orbital, it is difficult to visualize. Dual lead AICD is unchanged in orientation. Low lung volumes limiting evaluation. No gross lobar consolidation or pleural effusion. No pneumothorax. IMPRESSION: Suboptimal examination secondary to portable nature and patient body habitus. Endotracheal tube appears relatively stable in position, however, it is difficult to visualize. Lung volumes appear decreased from yesterday. There is no gross consolidation or pleural effusion.
--- NOTE | 2017-09-16 10:55 | PN- Infect Dx ---
Subjective Subjective: T-max 100. He continues to have copious amounts of diarrhea, with a rectal tube in place. Objective Last 24 Hrs of Vital Signs/I&O Vital Signs Date Time Temp Pulse Resp B/P B/P Pulse O2 O2 Flow FiO2 Mean Ox Delivery Rate 09/16 0901 89 129/60 09/16 0900 99.7 09/16 0815 30 09/16 0800 97 Ventilator 30% 09/16 0800 100.0 91 25 138/62 97 Ventilator 30% 09/16 0748 100.0 09/16 0607 30 09/16 0400 97 Ventilator 30% 09/16 0337 30 09/16 0012 30 09/16 0000 96 Ventilator 30% 09/16 0000 98.5 77 21 98/52 96 Ventilator 30% 09/15 2243 30 09/15 2154 98.4 09/15 2152 79 98/48 09/15 2101 100.0 09/15 2000 96 Ventilator 30% 09/15 1950 30 09/15 1701 30 09/15 1600 98.5 74 19 126/60 95 Ventilator 30% 09/15 1600 95 Ventilator 30% 09/15 1440 30 09/15 1200 95 Ventilator 30% 09/15 1200 98.6 67 16 108/56 98 Ventilator 30% 09/15 1140 30 Intake & Output 09/16 1600 09/16 0800 09/16 0000 Intake Total 1378 1526.9 Output Total 950 800 Balance 428 726.9 Intake, IV 347 842.9 Intake, Oral 0 0 Intake, Tube 431 384 Feeding Intake, Tube 600 300 Irrigant Output, Stool 150 100 Output, Urine 800 700 Physical Exam Other Physical Findings: He is more responsive on the ventilator Lungs are clear Heart regular rhythm with no murmur Abdomen soft, nontender with positive bowel sounds Extremities right foot dressing intact Barber catheter remains in place Results Last 24 Hours of Lab Results: Laboratory Tests 09/16 09/16 0525 0402 Blood Gas pH (7.35 - 7.45 PH) 7.43 pCO2 (35 - 45 TORR) 33 L pO2 (80 - 100 TORR) 96 HCO3 (21 - 28 MEQ/L) 22 ABG O2 Sat (Measured) (>96.0 %) 98.0 P-50 (Temp Corrected) N O2 Concentration % 30 Temperature (97.0 - 100.0 FARH) 98.0 Respiration Rate (BPM) 14 O2 Delivery Method VENT Vent Mode AC Expiratory Pressure (CMH2O/P) 5 Tidal Volume (CC) 550 Chemistry Sodium (137 - 145 mmol/L) 147 H Potassium (3.5 - 5.1 mmol/L) 4.0 Chloride (98 - 107 mmol/L) 111 H Carbon Dioxide (22 - 30 mmol/L) 23 Anion Gap (5 - 16) 13 BUN (9 - 20 mg/dL) 73 H Creatinine (0.7 - 1.2 mg/dL) 2.1 H Estimated GFR (>60 ml/min) 32 L Glucose (65 - 99 mg/dL) 136 H Calcium (8.4 - 10.2 mg/dL) 8.5 Phosphorus (2.5 - 4.5 mg/dL) 5.0 H Magnesium (1.6 - 2.3 mg/dL) 1.9 Total Bilirubin (0.2 - 1.3 mg/dL) 0.8 AST (17 - 59 U/L) 72 H ALT (21 - 72 U/L) 36 Albumin (3.5 - 5.0 g/dL) 2.5 L Hematology CBC w Diff NO MAN DIFF REQ WBC (4.8 - 10.8 /CUMM) 11.8 H RBC (4.70 - 6.10 /CUMM) 3.25 L Hgb (14.0 - 18.0 G/DL) 8.7 L Hct (42 - 52 %) 27.1 L MCV (80.0 - 94.0 FL) 83.4 MCH (27.0 - 31.0 PG) 26.7 L MCHC (33.0 - 37.0 G/DL) 32.0 L RDW (11.5 - 14.5 %) 19.2 H Plt Count (130 - 400 /CUMM) 232 MPV (7.4 - 10.4 FL) 11.8 H Gran % (42.2 - 75.2 %) 77.8 H Lymphocytes % (20.5 - 51.1 %) 12.0 L Monocytes % (1.7 - 9.3 %) 8.0 Eosinophils % (0 - 5 %) 1.8 Basophils % (0.0 - 2.0 %) 0.4 Absolute Granulocytes (1.4 - 6.5 /CUMM) 9.1 H Absolute Lymphocytes (1.2 - 3.4 /CUMM) 1.4 Absolute Monocytes (0.10 - 0.60 /CUMM) 0.9 H Absolute Eosinophils (0.0 - 0.7 /CUMM) 0.2 Absolute Basophils (0.0 - 0.2 /CUMM) 0 Miscellaneous Phlebotomy Draw Site RIGHT BRACHIAL Last 24 Hours of [place] Results: No new cultures Recent Imaging Studies: Chest x-ray September 16 reveals decreased lung volumes with no gross consolidation or pleural effusion Assessment/Plan ID Impression: Continued improvement, with a further decrease in his creatinine, stable respiratory status, lower grade temperatures and white blood cell count remaining normal, on Unasyn, Day 10 of treatment for 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 Given his JESUS findings, he will require a 4-6 week course of IV antibiotics. His hospital course has also been complicated by infarcts to the brain, possibly embolic given the JESUS findings, and diarrhea, possibly secondary to tube feedings or antibiotics, with his recent C. difficile negative. Suggestion: 1. Cardiothoracic surgery evaluation regarding his endocarditis 2. Stool C. difficile PCR if diarrhea persists 3. Would proceed with placement of a Pro-Line when stable 4. Discontinue Unasyn 5. Begin Ampicillin 2 g IV every 6 hours
[2017-09-16 12:00] VITALS: BP 130/70
[2017-09-16 16:00] VITALS: BP 120/60
[2017-09-17] VITALS: BP 130/70
--- NOTE | 2017-09-17 01:08 | Event Note ---
Event Note Event Note: Situation: I was informed that the patient has self-extubated himself at 01:00. Background: The patient is a 61 years old man on his 12th HD, he has a past medical history significant for atrial fibrillation and he presented to ED with signs and symptoms consistent with acute CVA. The patient has been intubated due to acute hypoxemic hypercapnic respiratory failure. Assessment: Dr. Davies was present in the ICU and examined the patient. Dr. Corbett and Dr. Laws were in the ICU as well and were informed about this event. I did visit the patient as well, he is in no acute respiratory distress, no use of accessory muscles. VS: RR: 20 BP: 130/70 HR: 70 O2 Sat: 97 Recommendation: The patient is in no acute distress. He is placed on 2 L/min via nasal canula, His saturations are fine and he is in no distress. We will closely observe the patient regarding O2 sat, respiratory rate and labor. He is scheduled for morning OR, no need to be NPO per sign out.
[2017-09-17 05:27] LABS: ABSOLUTE BASOPHIL COUNT 0.1 /CUMM (0.0-0.2); ABSOLUTE EOSINOPHIL COUNT 0.1 /CUMM (0.0-0.7); ABSOLUTE GRANULOCYTE CT 7.7 /CUMM (1.4-6.5); ABSOLUTE LYMPH COUNT 0.9 /CUMM (1.2-3.4); ABSOLUTE MONOCYTE COUNT 0.8 /CUMM (0.10-0.60); BASOPHIL % 0.7 % (0.0-2.0); EOSINOPHIL % 1.5 % (0-5); GRANULOCYTE % 80.1 % (42.2-75.2); HEMATOCRIT 26.4 % (42-52); MEAN CORPUSCULAR HGB 26.8 PG (27.0-31.0); MEAN CORPUSCULAR HGB CONC 32.2 G/DL (33.0-37.0); MEAN CORPUSCULAR VOLUME 83.2 FL (80.0-94.0); MEAN PLATELET VOLUME 11.1 FL (7.4-10.4); PLATELET COUNT 239 /CUMM (130-400); RBC DISTRIBUTION WIDTH 18.6 % (11.5-14.5); RED BLOOD CELL CT 3.18 /CUMM (4.70-6.10); WHITE BLOOD CELL COUNT 9.6 /CUMM (4.8-10.8)
--- NOTE | 2017-09-17 07:01 | PN- Resident CRCU ---
Subjective HPI/CRCU Issues: Sepsis Bacteremia (Group B STREP) PAF ?endocarditis Hyperglycemia 24 Hour Events: Around 1am last night the patient self extubated himself. He was evaluated by the attending and resident at the time. Found to be in no acute distress and placed on 2L NC on which he saturated well. No other events. Patient currently complains being thirsty but is NPO for his surgery. No other complaints at this time. Objective Vital Signs & I&O Last 8 Hrs of Vitals and I&O: Intake & Output 09/17 0800 Intake Total 792 Output Total 1320 Balance -528 Intake, IV 792 Output, Urine 1320 Exam General Appearance: alert, awake, mild distress Head: atraumatic, normal appearance Respiratory: normal breath sounds, chest non-tender, lungs clear Cardiovascular: regular rate/rhythm Gastrointestinal: soft, non-tender Extremities: no edema Cranial Nerves: normal hearing, normal speech Skin: intact, normal color Skin Temp/Moisture Exam: Warm/Dry Sepsis Skin Exam (color): Normal for Ethnicity Weaning Parameters NIF: 34 Minute Volume: 7.92 Resp rate: 18 Vt: 515 Heart Rate: 71 Weaning Schedule Start Time: 1905 Minute Volume: 8.48 Resp Rate: 16 Vt: 584 Heart Rate: 72 End Time: 2050 Minute Volume: 10.0 Resp Rate: 26 Vt: 388 Heart Rate: 67 Current Medications: Current Medications Sig/Jasvir Start time Last Medication Dose Route Stop Time Status Admin Acetaminophen 1,000 MG .STK-MED ONE 09/16 1354 DC IV 09/16 1355 Acetaminophen 650 MG Q6P PRN 09/06 0345 AC PO Acetaminophen 1,000 MG Q6P PRN 09/06 0345 AC 09/16 IV 1356 Albuterol Sulfate 3 ML Q4P PRN 09/15 1715 AC INH Ampicillin 2,000 MG Q6 09/16 1200 AC 09/17 Sodium Chloride 100 ML IV 0545 Ampicillin Sodium/ 3,000 MG Q8H 09/14 1000 DC 09/16 Sulbactam Sodium IV 0900 Sodium Chloride 100 ML Apixaban 5 MG BID 09/16 1129 AC 09/16 PO 2028 Aspirin 81 MG DAILY 09/15 1043 AC 09/16 PO 0901 Chlorhexidine 15 ML BID 09/11 0900 AC 09/16 Gluconate PO 2028 Dextrose/Sodium 1,000 ML Q13H 09/17 0000 AC 09/17 Chloride IV 09/17 1259 0111 Dextrose/Water 1,000 ML ONCE ONE 09/16 0745 DC 09/16 IV 09/16 2104 0748 Folic Acid 1 MG DAILY 09/07 1023 AC 09/16 PO 0901 Heparin Sodium 5,000 UNIT Q8H 09/16 0600 DC 09/16 (Porcine) SC 0546 Hydromorphone HCl 1 MG Q4P PRN 09/10 2215 AC 09/17 IV 0312 Insulin Aspart 0 Q4 09/17 0200 AC SC Insulin Aspart 0 Q4 09/15 1800 DC 09/16 SC 09/17 0000 2135 Insulin Detemir 25 UNITS 09/16 2100 DC 09/16 SC 09/16 Insulin Detemir 30 UNITS 09/16 2030 CAN SC 09/16 2030 Insulin Detemir 50 UNITS BID 09/15 2100 DC 09/16 SC 0901 Insulin Human Regular 0 Q6 09/16 2359 CAN SC Metoprolol Tartrate 100 MG BID 09/11 09 AC 09/16 PO 2028 Multivitamins 1 TAB DAILY 09/07 1023 AC 09/16 PO 0901 Pantoprazole Sodium 40 MG DAILY 09/09 0900 AC 09/16 IV 0900 Thiamine HCl 50 MG DAILY 09/07 1023 AC 09/16 PO 0901 Zinc Oxide 1 GATO TID PRN 09/11 1530 AC 09/13 TOP 1730 Impression/Plan Impression/Problem List Impression: 65 y/o M with PMH of DM, Gout, TX s/p CABG on aspirin/plavix, hypertension and hyperlipidemia was brought 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 As per the , pt had sudden onset dysarthria, difficulty swallowing and L nasolabial fold drooping. On admission pertinent labs showed leukocytosis (12.8), thrombocytopenia (73), BUN/CR (58/2.3 ). EKG showed a-fib with RVR on admission with HR in the 180s, and pt was put on cardizem drip; he was admitted to the ICU for further management. Assessment and Plan: 1. Acute Hypoxemic Respiratory Failure now extubated * off ventilator * on 2L NC. Will wean off as tolerated. 2. Atrial Fibrilliation with RVR * remains in NSR * Continue Metoprolol 100mg BID * Repeat head CT 09/15 was negative for infarcts. * Started on Eliquis 5mg BID 3. DEMETRIO * Improving. * Trend Renal function 4. Lacunar Infarct * No deficits noticed. * Repeat head CT 09/15 ruled out hemorrhagic conversion 5. Strep B bacteremia with ? endocarditis * Day 12 of antibiotics * Continue IV Ampicillin 2g q6. 6. Elevated Troponins - resolved * trops have trended. * likely due to type II [place] 7. Hyperglycemia * Improved blood sugars. * Insulin SS adjusted per Endo recs * Levemir 50 units BID. 8. Thrombocytopenia - resolved * was likely in the setting of sepsis * transfused 1 unit pooled platelets on 09/09 which he received for his JESUS 9. Charcot athropathy with swellling/inflammation of right foot * Bedside I&D on 09/12 and 09/14. Patient underwent debridement of abscess in OR . He will return to the OR today for a washout. 10. Elevated LFTs - resolved * No need to further monitor 11. Hypernatremia * Continue free water flushes to 400ml q6 Diet: Tube feeds on Glucerna at 60cc/hr. DVT Prophylaxis: SC Heparin x 3 Code: Full Code Problem List: 1. Sepsis due to group B Streptococcus Pain Ratin Tomorrow's Labs & Rationales: CBC, ICU Bundle Plan DVT/Prophylaxis: mechanical
[2017-09-17 08:00] VITALS: BP 130/60
--- NOTE | 2017-09-17 08:12 | PN- CRCU ---
Subjective HPI/Critical Care Issues: Overnight events noted. The patient became more awake and alert and self extubated. His respiratory status has been stable postextubation. He is oriented to person, but is intermittently confused. He is moving all extremities independently. He denies any pain, shortness of breath or chills. The patient continues to have diarrhea/liquid stool and has a rectal tube in place. Overall he appears improved and denies any new complaints today. Objective Current Medications: Current Medications Sig/Jasvir Start time Last Medication Dose Route Stop Time Status Admin Acetaminophen 1,000 MG .STK-MED ONE 09/16 1354 DC IV 09/16 1355 Acetaminophen 650 MG Q6P PRN 09/06 0345 AC PO Acetaminophen 1,000 MG Q6P PRN 09/06 0345 AC 09/16 IV 1356 Albuterol Sulfate 3 ML Q4P PRN 09/15 1715 AC INH Ampicillin 2,000 MG Q6 09/16 1200 AC 09/17 Sodium Chloride 100 ML IV 0545 Ampicillin Sodium/ 3,000 MG Q8H 09/14 1000 DC 09/16 Sulbactam Sodium IV 0900 Sodium Chloride 100 ML Apixaban 5 MG BID 09/16 1129 AC 09/16 PO 2029 Aspirin 81 MG DAILY 09/15 1043 AC 09/16 PO 0901 Chlorhexidine 15 ML BID 09/11 0900 AC 09/16 Gluconate PO 2029 Dextrose/Sodium 1,000 ML Q13H 09/17 0000 AC 09/17 Chloride IV 09/17 1259 0111 Dextrose/Water 1,000 ML ONCE ONE 09/16 0745 DC 09/16 IV 09/16 2104 0748 Folic Acid 1 MG DAILY 09/07 1023 AC 09/16 PO 0901 Furosemide 40 MG 0815 09/16 0815 DC 09/16 IV 09/16 0816 0900 Heparin Sodium 5,000 UNIT Q8H 09/16 0600 DC 09/16 (Porcine) SC 0546 Hydromorphone HCl 1 MG Q4P PRN 09/10 2215 AC 09/17 IV 0312 Insulin Aspart 0 Q4 09/17 0200 AC SC Insulin Aspart 0 Q4 09/15 1800 DC 09/16 SC 09/17 0000 2135 Insulin Detemir 25 UNITS 2100 09/16 2100 DC 09/16 SC 09/16 Insulin Detemir 30 UNITS 09/16 2030 CAN SC 09/16 2030 Insulin Detemir 50 UNITS BID 09/15 2100 DC 09/16 SC 0901 Insulin Human Regular 0 Q6 09/169 CAN IL Metoprolol Tartrate 100 MG BID 09/11 899 AC 09/16 PO 2028 Multivitamins 1 TAB DAILY 09/07 1023 AC 09/16 PO 0901 Pantoprazole Sodium 40 MG DAILY 09/09 09 AC 09/16 IV 0900 Thiamine HCl 50 MG DAILY 09/07 1023 AC 09/16 PO 0901 Zinc Oxide 1 GATO TID PRN 09/11 1530 09/13 TOP 1730 Vital Signs & I&O Last 24 Hrs of Vitals and I&O: Vital Signs Date Time Temp Pulse Resp B/P B/P Pulse O2 O2 Flow FiO2 Mean Ox Delivery Rate 09/17 0400 95 Nasal 2.0L Cannula 09/17 0053 95 Nasal 2.0L Cannula 09/17 0048 30 09/17 0000 97 Ventilator 30% 09/17 0000 97.4 70 18 130/70 97 Ventilator 30% 09/16 2206 30 09/16 2029 75 118/55 09/16 2000 97 Ventilator 30% 09/16 1905 30 09/16 1830 100.9 09/16 1759 99.9 09/16 1700 100.7 09/16 1647 30 09/16 1600 98.8 82 24 120/60 97 Ventilator 30% 09/16 1600 97 Ventilator 30% 09/16 1433 30 09/16 1208 30 09/16 1200 98 Ventilator 30% 09/16 1200 97.0 76 30 130/70 98 Ventilator 30% 09/16 0901 89 129/60 09/16 0900 99.7 09/16 0815 30 Intake & Output 09/17 1600 09/17 0800 09/17 0000 Intake Total 792 1887.8 Output Total 1320 800 Balance -528 1087.8 Intake, IV 792 737.8 Intake, Other 30 Intake, Tube 420 Feeding Intake, Tube 700 Irrigant Output, Urine 1320 800 Physical Exam General Appearance: Awake, comfortable, no respiratory distress, moving all extremities independently, following commands Head: atraumatic, normal appearance Neck: normal inspection, supple Respiratory: bilateral anterior rhonchi heard, lung sounds are clear otherwise Cardiovascular: S1 and S2 heard Gastrointestinal: normal bowel sounds, soft, non-tender Extremities: Right foot swelling, right lower extremity surgical dressings in place Skin: intact, warm and dry Results Last 24 Hrs of Lab Results: Laboratory Tests 09/17/17 0400: Anion Gap 13, Estimated GFR 32 L, BUN/Creatinine Ratio 27.6 H, Calcium 8.3 L, Magnesium 1.8, Total Bilirubin 0.8, Direct Bilirubin 0.6 H, AST 55, ALT 37, Alkaline Phosphatase 184 H, Total Protein 7.0, Albumin 2.4 L, CBC w Diff NO MAN DIFF REQ, RBC 3.18 L, MCV 83.2, MCH 26.8 L, MCHC 32.2 L, RDW 18.6 H, MPV 11.1 H, Gran % 80.1 H, Lymphocytes % 9.5 L, Monocytes % 8.2, Eosinophils % 1.5, Basophils % 0.7, Absolute Granulocytes 7.7 H, Absolute Lymphocytes 0.9 L, Absolute Monocytes 0.8 H, Absolute Eosinophils 0.1, Absolute Basophils 0.1 09/17/17 0145: pH 7.49 H, pCO2 32 L, pO2 86, HCO3 24, ABG O2 Sat (Measured) 97.0, P-50 (Temp Corrected) Y, Carboxyhemoglobin 0.1 L, O2 Concentration % 2 LPM, Temperature 97.4, O2 Delivery Method N/C, Phlebotomy Draw Site LEFT RADIAL 09/16/17 1700: C. difficile Tox B Gene Pending Impression/Plan Impression/Plan Impression/Plan: 1. Multiple organ system failure secondary to Group B strep bacteremia and mitral valve endocarditis, on ampicillin. 2. Acute on chronic renal failure, secondary to ATN, Cr stable. 3. Right lower extremity foot abscess and fractures, s/p debridement (09/15/17). 4. Improved hypoxic respiratory failure, status post self extubation. 5. Hypernatremia. 6. Atrial fibrillation, in sinus rhythm. 7. CVA. 8. Positive troponins, suggestive of demand ischemia. 9. Cirrhosis, LFTs continue to improve. 10. Encephalopathy. 11. Malnutrition, on tube feeds. 12. Diarrhea, C. difficile negative. 13. Anemia, likely dilutional and related to multiple blood draws. Recommendations: * Check a swallowing evaluation. * Advance diet as tolerated. * Encourage free water intake. * If the patient remains n.p.o., he will require additional hydration with D5W. * Continue ampicillin as per ID. * Pro line placement today if possible. * CT surgery evaluation requested. I will discuss with the surgical team. * Taper oxygen for sats greater than 92%. * Incentive spirometry. * Continue nebs/total respiratory care. * Physical therapy evaluation today. * Continue with pain control as necessary. Prefer nonsedating medication such as IV Tylenol. * DVT prophylaxis at all times. * The patient has significantly improved. We will continue all supportive care. Appreciate all consultants input.
--- NOTE | 2017-09-17 12:35 | PN- Infect Dx ---
Subjective Subjective: T-max 100.9. He extubated himself overnight and has remained extubated, with no complaints. He continues to have a significant amount of diarrhea. Objective Last 24 Hrs of Vital Signs/I&O Vital Signs Date Time Temp Pulse Resp B/P B/P Pulse O2 O2 Flow FiO2 Mean Ox Delivery Rate 09/17 1032 66 132/71 09/17 0800 98.5 70 21 130/60 96 Nasal 2.0L Cannula 09/17 0800 96 Nasal 2.0L Cannula 09/17 0400 95 Nasal 2.0L Cannula 09/17 0053 95 Nasal 2.0L Cannula 09/17 0048 30 09/17 0000 97 Ventilator 30% 09/17 0000 97.4 70 18 130/70 97 Ventilator 30% 09/16 2206 30 09/16 2029 75 118/55 09/16 2000 97 Ventilator 30% 09/16 1905 30 09/16 1830 100.9 09/16 1759 99.9 09/16 1700 100.7 09/16 1647 30 09/16 1600 98.8 82 24 120/60 97 Ventilator 30% 09/16 1600 97 Ventilator 30% 09/16 1433 30 Intake & Output 09/17 1600 09/17 0800 09/17 0000 Intake Total 792 1887.8 Output Total 1320 800 Balance -528 1087.8 Intake, IV 792 737.8 Intake, Other 30 Intake, Tube 420 Feeding Intake, Tube 700 Irrigant Output, Urine 1320 800 Physical Exam Other Physical Findings: He is lethargic but arousable in no acute distress, on 2 L of oxygen Lungs are clear Heart regular rhythm with no murmur Abdomen is soft, nontender with positive bowel sounds; rectal tube in place with liquid stool Extremities right foot dressing intact Barber catheter remains in place Results Last 24 Hours of Lab Results: Laboratory Tests 09/17 09/17 09/16 0400 0145 1700 Blood Gas pH (7.35 - 7.45 PH) 7.49 H pCO2 (35 - 45 TORR) 32 L pO2 (80 - 100 TORR) 86 HCO3 (21 - 28 MEQ/L) 24 ABG O2 Sat (Measured) (>96.0 %) 97.0 P-50 (Temp Corrected) Y Carboxyhemoglobin (1.5 - 5.0 %) 0.1 L O2 Concentration % 2 LPM Temperature (97.0 - 100.0 FARH) 97.4 O2 Delivery Method N/C Chemistry Sodium (137 - 145 mmol/L) 146 H Potassium (3.5 - 5.1 mmol/L) 3.7 Chloride (98 - 107 mmol/L) 110 H Carbon Dioxide (22 - 30 mmol/L) 24 Anion Gap (5 - 16) 13 BUN (9 - 20 mg/dL) 58 H Creatinine (0.7 - 1.2 mg/dL) 2.1 H Estimated GFR (>60 ml/min) 32 L BUN/Creatinine Ratio (7 - 25 %) 27.6 H Calcium (8.4 - 10.2 mg/dL) 8.3 L Magnesium (1.6 - 2.3 mg/dL) 1.8 Total Bilirubin (0.2 - 1.3 mg/dL) 0.8 Direct Bilirubin (< 0.4 mg/dL) 0.6 H AST (17 - 59 U/L) 55 ALT (21 - 72 U/L) 37 Alkaline Phosphatase (< 127 U/L) 184 H Total Protein (6.3 - 8.2 g/dL) 7.0 Albumin (3.5 - 5.0 g/dL) 2.4 L Hematology CBC w Diff NO MAN DIFF REQ WBC (4.8 - 10.8 /CUMM) 9.6 RBC (4.70 - 6.10 /CUMM) 3.18 L Hgb (14.0 - 18.0 G/DL) 8.5 L Hct (42 - 52 %) 26.4 L MCV (80.0 - 94.0 FL) 83.2 MCH (27.0 - 31.0 PG) 26.8 L MCHC (33.0 - 37.0 G/DL) 32.2 L RDW (11.5 - 14.5 %) 18.6 H Plt Count (130 - 400 /CUMM) 239 MPV (7.4 - 10.4 FL) 11.1 H Gran % (42.2 - 75.2 %) 80.1 H Lymphocytes % (20.5 - 51.1 %) 9.5 L Monocytes % (1.7 - 9.3 %) 8.2 Eosinophils % (0 - 5 %) 1.5 Basophils % (0.0 - 2.0 %) 0.7 Absolute Granulocytes (1.4 - 6.5 /CUMM) 7.7 H Absolute Lymphocytes (1.2 - 3.4 /CUMM) 0.9 L Absolute Monocytes (0.10 - 0.60 /CUMM) 0.8 H Absolute Eosinophils (0.0 - 0.7 /CUMM) 0.1 Absolute Basophils (0.0 - 0.2 /CUMM) 0.1 Miscellaneous Phlebotomy Draw Site LEFT RADIAL Serology C. difficile Tox B Gene Pending Last 24 Hours of Shady Results: Sputum culture September 16 light growth of yeast Stool C. 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 There was apparently no evidence for bone involvement in the OR, but he will require a prolonged course of IV antibiotics for endocarditis, based on his JESUS findings of a mitral valve vegetation. His hospital course has also been complicated by renal failure, which is improving, infarcts to the brain, possibly embolic given the JESUS findings, and diarrhea, possibly secondary to tube feedings or antibiotics, with a repeat C. difficile and PCR pending. Suggestion: 1. Follow-up stool for C. difficile (toxin and PCR) 2. Await return to the OR later today 3. Would proceed with placement of a Pro-Line 4. Continue Ampicillin
--- NOTE | 2017-09-17 15:26 | Operative Report ---
Operative/Inv Procedure Report Surgery Date: 09/17/17 Name of Procedure: Incision and drainage through the deep fascia, multiple dorsal compartments, right foot with washout Pre-Operative Diagnosis: Abscess right foot, rule out necrotizing soft tissue infection Post-Operative Diagnosis: Abscess right foot, rule out necrotizing soft tissue infection Estimated Blood Loss: less than 50ml Surgeon/Salmon Gillnet Vessel Operator: Etienne Ojeda DPM Anesthesia: local monitored anesthesi, 18cc 50/50 mix of 2% Lidocaine plain, 0.5 % Marcaine plain Specimens: None Microbiology: None Tourniquet: None Complications: None Condition: Stable Operative Indication: This is a 61-year-old diabetic male with 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 The patient has had bedside procedures done on Friday, a formal incision and drainage done on Friday, and today's procedure is to continually surgically manage his infection. He has done incrementally better since my initial consultation on the , having since self extubated, normalized his leukocytosis, increased his overall mental status, and had substantial clinical appearance of the lateral right foot and ankle. The patient continues, however, to have low-grade fevers approximately once every 48 hours. The patient has also been placed on Eliquis in the interim since the previous procedure to treat his newly diagnosed CVA during this admission, and I have chosen not to hold it given the minor nature of this procedure. Until today, the patient's , who has been accompanying him for most of this admission at bedside had been consenting on his behalf. Since extubating, the patient is lethargic with right sided weakness, but conversational, and consented for the procedure on his own today. Operative/Procedure Note Note: After the right foot and ankle were prepped and draped in the usual sterile fashion with Betadine, attention was directed to the dorsal lateral aspect of the right hindfoot. Existing 6 cm incision was visualized going proximal to distal through both the lateral and anterior compartments of the distal leg as well as the dorsal compartments of the hindfoot, using blunt exploration the neighboring soft tissue planes were explored, and an additional 8-10 cc of purulence was found just proximal to the incision, a small amount of devitalized tissue was also excisionally debrided with a rongeur. The overall appearance of the extremity show near complete resolution of the erythema with postinflammatory hyperpigmentation, stabilization of the lateral malleolar and styloid process wounds with fibrous eschars, and resolving ecchymosis over the dorsum of the hindfoot. The wound was then pulse irrigated with 3 L of a combination of normal saline and bacitracin solution. The wound was then packed with one-inch plain packing, dressed with multiple fluff gauze, 3 abdominal pads , roll of Kerlix, and a sterile 4 inch Nico bandage. Findings: Small amount of necrotic soft tissue was found in the immediate area of the wound, and small amounts of purulence were expressible aggressively from proximal to the incision, but this was approximately a third of what was expressed on Friday. Discharge Disposition: Critical Care Unit Additional Comments: The patient was escorted directly back to his bed in the intensive care unit by myself, the CHIEF MECHANICAL ENGINEER on the case and the circulating nurse. Patient was signed out to his covering nurse. He is to keep the operative limb elevated. His overall status continues to incrementally improve day by day. He is planned for another debridement and washout on Friday, or sooner if his condition unexpectedly worsens. We will follow the infectious disease recommendations. We will follow -up cardiology recommendations given the newly diagnosed CVA, and I will make every attempt from a surgical standpoint to avoid ceasing his blood thinners to benefit that condition. I will follow-up on patient tomorrow morning to ensure he has no strikethrough, monitor his vitals and white count throughout, and return him to the operating room Friday for revisional washout with possible closure if there is no further purulence.
[2017-09-17 16:13] VITALS: BP 122/64
--- NOTE | 2017-09-17 17:51 | PN- Endocrinology ---
Assessment/Plan Endoscopy Assessment: He only received 25 units of Levemir last night, and his glucose level is still well controlled today. I expect that his insulin requirement has declined after extubation. Plan: Would recommend 20 units of Levemir twice a day. Please add NovoLog 7 units before each meal once he starts to eat. Continue with sliding scale insulin NovoLo-200 2 units 201-250 4 units 251-300 6 units 301-350 8 units 351-400 10 units >400 12 units and inform provider Hold all oral diabetes medication until his kidney function fully recovers. Will follow. Subjective Subjective: I saw the patient this morning, he self extubated last night. He was still confused. He was on n.p.o. status and prepare for surgery in the afternoon. He was also receiving D5W. His home regimen include Lantus 20 units daily, NovoLog sliding scale, metformin , jardiance and bromocriptine. His blood glucose tend to spike after meals at home. Objective Last 24 Hrs of Vital Signs/I&O Vital Signs Date Time Temp Pulse Resp B/P B/P Pulse O2 O2 Flow FiO2 Mean Ox Delivery Rate 09/17 1613 96.4 60 22 122/64 98 Room Air 09/17 1600 99 Room Air 09/17 1300 98 Nasal 1.0L Cannula 09/17 1200 97 Nasal 1.0L Cannula 09/17 1032 66 132/71 09/17 0800 98.5 70 21 130/60 96 Nasal 2.0L Cannula 09/17 0800 96 Nasal 2.0L Cannula 09/17 0400 95 Nasal 2.0L Cannula 09/17 0053 95 Nasal 2.0L Cannula 09/17 0048 30 09/17 0000 97 Ventilator 30% 09/17 0000 97.4 70 18 130/70 97 Ventilator 30% 09/16 2206 30 09/16 2029 75 118/55 09/16 2000 97 Ventilator 30% 09/16 1905 30 09/16 1830 100.9 09/16 1759 99.9 Intake & Output 09/17 1600 09/17 0800 09/17 0000 Intake Total 817 627 5048.8 Output Total 1000 1320 800 Balance -500 -528 1087.8 Intake, IV 500 792 737.8 Intake, Oral 0 Intake, Other 30 Intake, Tube 420 Feeding Intake, Tube 700 Irrigant Output, Stool 100 Output, Urine 900 1320 800 GENERAL APPEARANCE: Well developed, in no acute distress. SKIN: no hives NECK: Supple and symmetric. CHEST: normal contour CARDIOVASCULAR: regular rate and rhythm. NEUROLOGIC: Alert.
[2017-09-18] VITALS: BP 128/70
[2017-09-18 04:22] LABS: ABSOLUTE BASOPHIL COUNT 0.1 /CUMM (0.0-0.2); ABSOLUTE EOSINOPHIL COUNT 0.1 /CUMM (0.0-0.7); ABSOLUTE GRANULOCYTE CT 4.8 /CUMM (1.4-6.5); ABSOLUTE LYMPH COUNT 1.3 /CUMM (1.2-3.4); ABSOLUTE MONOCYTE COUNT 0.7 /CUMM (0.10-0.60); BASOPHIL % 1.4 % (0.0-2.0); EOSINOPHIL % 2.1 % (0-5); GRANULOCYTE % 67.9 % (42.2-75.2); MEAN CORPUSCULAR HGB 26.7 PG (27.0-31.0); MEAN CORPUSCULAR HGB CONC 32.5 G/DL (33.0-37.0); MEAN CORPUSCULAR VOLUME 82.1 FL (80.0-94.0); MEAN PLATELET VOLUME 11.1 FL (7.4-10.4); PLATELET COUNT 339 /CUMM (130-400); RBC DISTRIBUTION WIDTH 18.4 % (11.5-14.5); RED BLOOD CELL CT 3.17 /CUMM (4.70-6.10)
--- NOTE | 2017-09-18 07:31 | PN- Resident CRCU ---
Subjective HPI/CRCU Issues: Sepsis Bacteremia (Group B STREP) PAF ?endocarditis Hyperglycemia 24 Hour Events: No acute events overnight. Patient is saturating well on room air. He feels better and has no complaints. Objective Vital Signs & I&O Last 8 Hrs of Vitals and I&O: . Exam General Appearance: well developed/nourished, alert, awake, mild distress Head: atraumatic, normal appearance Respiratory: normal breath sounds, chest non-tender, lungs clear Cardiovascular: regular rate/rhythm Gastrointestinal: soft, non-tender Extremities: no edema, right leg in neel wraps Cranial Nerves: normal hearing, normal speech Skin: intact, normal color Skin Temp/Moisture Exam: Warm/Dry Sepsis Skin Exam (color): Normal for Ethnicity Weaning Parameters NIF: 34 Minute Volume: 7.92 Resp rate: 18 Vt: 515 Heart Rate: 71 Weaning Schedule Start Time: 1905 Minute Volume: 8.48 Resp Rate: 16 Vt: 584 Heart Rate: 72 End Time: 2050 Minute Volume: 10.0 Resp Rate: 26 Vt: 388 Heart Rate: 67 Current Medications: Current Medications Sig/Jasvir Start time Last Medication Dose Route Stop Time Status Admin Acetaminophen 1,000 MG .STK-MED ONE 09/17 2207 DC IV 09/17 220 Acetaminophen 1,000 MG .STK-MED ONE 09/17 1013 DC IV 09/17 1014 Acetaminophen 650 MG Q6P PRN 09/06 0345 AC PO Acetaminophen 1,000 MG Q6P PRN 09/06 0345 AC 09/17 IV 2213 Albuterol Sulfate 3 ML Q4P PRN 09/15 1715 AC INH Ampicillin 2,000 MG Q6 09/16 1200 AC 09/18 Sodium Chloride 100 ML IV 0516 Apixaban 5 MG BID 09/16 1129 DC 09/16 PO 2029 Aspirin 81 MG DAILY 09/15 1043 AC 09/18 PO 0817 Chlorhexidine 15 ML BID 09/11 0900 AC 09/18 Gluconate PO 0818 Dextrose/Sodium 1,000 ML Q13H 09/17 0000 DC 09/17 Chloride IV 09/17 1259 0111 Fentanyl Citrate 0 .STK-MED ONE 09/17 1404 DC .ROUTE Folic Acid 1 MG DAILY 09/07 1023 AC 09/18 PO 0817 Hydromorphone HCl 1 MG Q4 PRN 09/18 0028 AC 09/18 IV 0530 Hydromorphone HCl 1 MG Q6 PRN 09/18 0015 DC 09/18 IV 0021 Hydromorphone HCl 1 MG Q4P PRN 09/10 2215 DC 09/17 IV 2006 Insulin Aspart 0 TIDAC 09/18 0800 DC SC Insulin Aspart 0 Q4 09/17 1800 CAN SC Insulin Aspart 0 TIDAC 09/17 1800 AC 09/18 SC 0817 Insulin Aspart 0 Q4 09/17 0200 DC 09/17 SC 1523 Insulin Detemir 50 UNITS BID 09/17 2100 DC SC Insulin Detemir 20 UNITS BID 09/17 2100 AC 09/18 SC 0816 Magnesium Sulfate 1 GM ONCE ONE 09/17 1530 DC 09/17 Dextrose/Water 100 ML IV 09/17 1929 1600 Metoprolol Tartrate 5 MG ONCE ONE 09/17 1030 DC 09/17 IV 09/17 1031 1032 Metoprolol Tartrate 100 MG BID 09/11 0900 AC 09/18 PO 0817 Midazolam HCl 0 .STK-MED ONE 09/17 1404 DC .ROUTE Multivitamins 1 TAB DAILY 09/07 1023 AC 09/18 PO 0816 Pantoprazole Sodium 40 MG DAILY 09/09 0900 AC 09/18 IV 0816 Thiamine HCl 50 MG DAILY 09/07 1023 AC 09/18 PO 0817 Zinc Oxide 1 GATO TID PRN 09/11 1530 AC 09/17 TOP 1016 Impression/Plan Impression/Problem List Impression: 65 y/o M with PMH of DM, Gout, IL s/p CABG on aspirin/plavix, hypertension and hyperlipidemia was brought to the ED by his 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 As per the , pt had sudden onset dysarthria, difficulty swallowing and L nasolabial fold drooping. On admission pertinent labs showed leukocytosis (12.8), thrombocytopenia (73), BUN/CR (58/2.3 ). EKG showed a-fib with RVR on admission with HR in the 180s, and pt was put on cardizem drip; he was admitted to the ICU for further management. Assessment and Plan: 1. Acute Hypoxemic Respiratory Failure - resolved * Extubated and off ventilator * on room air 2. Atrial Fibrilliation with RVR - resolved * remains in NSR * Continue Metoprolol 100mg BID * Repeat head CT 09/15 was negative for infarcts. * Eliquis on hold for Proline placement 3. DEMETRIO * Improving. * Trend Renal function 4. Lacunar Infarct * No deficits noticed. * Repeat head CT 09/15 ruled out hemorrhagic conversion 5. Strep B bacteremia with ? endocarditis * Day 13 of antibiotics * Continue IV Ampicillin 2g q6. He will require a total of 4-6 weeks of antibiotics. 6. Elevated Troponins - resolved * trops have trended. * likely due to type II IL 7. Hyperglycemia * Improved blood sugars. * Insulin SS adjusted per Endo recs * Levemir reduced to 20 units BID. 8. Thrombocytopenia - resolved * was likely in the setting of sepsis * transfused 1 unit pooled platelets on 09/09 which he received for his JESUS 9. Charcot athropathy with swellling/inflammation of right foot * Bedside I&D on 09/12 and 09/14. Patient underwent debridement of abscess in OR . He will return to the OR again tomorrow for further wash out as he had significant drainage. 10. Elevated LFTs - resolved * No need to further monitor 11. Hypernatremia - resolved * Monitor for now Diet: Diabetic DVT Prophylaxis: SC Heparin x 3 Code: Full Code Stable to be downgraded to telemetry. Problem List: 1. Sepsis due to group B Streptococcus Pain Ratin Tomorrow's Labs & Rationales: CBC, ICU bundle Plan DVT/Prophylaxis: mechanical
[2017-09-18 08:00] VITALS: BP 140/60
--- NOTE | 2017-09-18 08:13 | PN- Podiatry ---
Subjective Subjective: Patient seen and evaluated at bedside postoperative day 1 revisional incision and drainage of the right foot. Patient is afebrile overnight, remains with a normal white count. Vital signs stable. Patient is now in no apparent distress. He is fully verbal. He has difficulty remembering the events of the past several days understandably. His speech is mildly slowed. Review of Systems: 14 point review of systems was performed and found to be negative apart from the patient's chief complaint as well as those in the primary team progress note. Objective Vital Signs and I&Os Vital Signs Date Time Temp Pulse Resp B/P B/P Pulse O2 O2 Flow FiO2 Mean Ox Delivery Rate 09/18 0616 73 97 09/18 0400 95 Room Air 09/18 0346 71 97 09/18 0059 68 93 09/18 0000 97 Room Air 09/18 0000 96.8 64 20 128/70 97 Room Air 09/17 2218 67 96 09/17 2157 73 161/72 09/17 2000 99 Room Air 09/17 1822 96 Room Air 09/17 1613 96.4 60 22 122/64 98 Room Air 09/17 1600 99 Room Air 09/17 1300 98 Nasal 1.0L Cannula 09/17 1200 97 Nasal 1.0L Cannula 09/17 1032 66 132/71 Intake & Output 09/18 1600 09/18 0800 09/18 0000 09/17 1600 09/17 0800 09/17 0000 Intake Total 400 1445 754 729 3289.8 Output Total 750 1070 1000 1320 800 Balance -350 375 -500 -528 1087.8 Intake, IV 200 525 500 792 737.8 Intake, Oral 200 920 0 Intake, Other 30 Intake, Tube 420 Feeding Intake, Tube 700 Irrigant Output, Other 100 Output, Stool 150 100 Output, Urine 650 019 557 1466 800 Physical Exam: Patient's neurovascular status is unchanged. We continue to defer the musculoskeletal exam secondary to the patient being bedbound in a weakened state from his acute critical illness. His bandage on the right foot is clean, dry, intact, with no strikethrough. The erythema and edema in the distal half of the right leg is resolved. Current Medications: Current Medications Sig/Jasvir Start time Last Medication Dose Route Stop Time Status Admin Acetaminophen 1,000 MG .STK-MED ONE 09/17 2206 DC IV 07/25 2208 Acetaminophen 1,000 MG .STK-MED ONE 09/17 1013 DC IV 09/17 1014 Acetaminophen 650 MG Q6P PRN 09/06 0345 AC PO Acetaminophen 1,000 MG Q6P PRN 09/06 0345 AC 09/17 IV 2213 Albuterol Sulfate 3 ML Q4P PRN 09/15 1715 AC INH Ampicillin 2,000 MG Q6 09/16 1200 AC 09/18 Sodium Chloride 100 ML IV 0516 Apixaban 5 MG BID 09/16 1129 DC 09/16 PO 2029 Aspirin 81 MG DAILY 09/15 1043 AC 09/16 PO 0901 Chlorhexidine 15 ML BID 09/11 09 AC 09/17 Gluconate PO 2158 Dextrose/Sodium 1,000 ML Q13H 09/17 0000 DC 09/17 Chloride IV 09/17 1259 0111 Fentanyl Citrate 0 .STK-MED ONE 09/17 1404 DC .ROUTE Folic Acid 1 MG DAILY 09/07 1023 AC 09/16 PO 0901 Hydromorphone HCl 1 MG Q4 PRN 09/18 0028 AC 09/18 IV 0530 Hydromorphone HCl 1 MG Q6 PRN 09/18 0015 DC 09/18 IV 0021 Hydromorphone HCl 1 MG Q4P PRN 09/10 2215 DC 09/17 IV 2006 Insulin Aspart 0 TIDAC 09/18 0800 DC SC Insulin Aspart 0 Q4 09/17 1800 CAN SC Insulin Aspart 0 TIDAC 09/17 1800 AC 09/17 SC 1800 Insulin Aspart 0 Q4 09/17 0200 DC 09/17 SC 1523 Insulin Detemir 50 UNITS BID 09/17 2100 DC SC Insulin Detemir 20 UNITS BID 09/17 2100 AC 09/17 SC 2157 Magnesium Sulfate 1 GM ONCE ONE 09/17 1530 DC 09/17 Dextrose/Water 100 ML IV 09/17 1929 1600 Metoprolol Tartrate 5 MG ONCE ONE 09/17 1030 DC 09/17 IV 09/17 1031 1032 Metoprolol Tartrate 100 MG BID 09/11 0900 AC 09/17 PO 2157 Midazolam HCl 0 .STK-MED ONE 09/17 1404 DC .ROUTE Multivitamins 1 TAB DAILY 09/07 1023 AC 09/16 PO 0901 Pantoprazole Sodium 40 MG DAILY 09/09 0900 AC 09/17 IV 1016 Thiamine HCl 50 MG DAILY 09/07 1023 09/16 PO 0901 Zinc Oxide 1 GATO TID PRN 09/11 1530 09/17 TOP 1016 Results Last 48 Hours of Labs: Laboratory Tests 09/18 09/17 0330 0400 Chemistry Sodium (137 - 145 mmol/L) Pending 146 H Potassium (3.5 - 5.1 mmol/L) Pending 3.7 Chloride (98 - 107 mmol/L) Pending 110 H Carbon Dioxide (22 - 30 mmol/L) Pending 24 Anion Gap (5 - 16) Pending 13 BUN (9 - 20 mg/dL) Pending 58 H Creatinine (0.7 - 1.2 mg/dL) Pending 2.1 H Estimated GFR (>60 ml/min) 32 L BUN/Creatinine Ratio (7 - 25 %) 27.6 H Glucose Pending Calcium (8.4 - 10.2 mg/dL) Pending 8.3 L Phosphorus Pending Magnesium (1.6 - 2.3 mg/dL) Pending 1.8 Total Bilirubin (0.2 - 1.3 mg/dL) Pending 0.8 Direct Bilirubin (< 0.4 mg/dL) 0.6 H AST (17 - 59 U/L) Pending 55 ALT (21 - 72 U/L) Pending 37 Alkaline Phosphatase (< 127 U/L) 184 H Total Protein (6.3 - 8.2 g/dL) 7.0 Albumin (3.5 - 5.0 g/dL) Pending 2.4 L Hematology CBC w Diff NO MAN DIFF REQ NO MAN DIFF REQ WBC (4.8 - 10.8 /CUMM) 7.0 9.6 RBC (4.70 - 6.10 /CUMM) 3.17 L 3.18 L Hgb (14.0 - 18.0 G/DL) 8.5 L 8.5 L Hct (42 - 52 %) 26.0 L 26.4 L MCV (80.0 - 94.0 FL) 82.1 83.2 MCH (27.0 - 31.0 PG) 26.7 L 26.8 L MCHC (33.0 - 37.0 G/DL) 32.5 L 32.2 L RDW (11.5 - 14.5 %) 18.4 H 18.6 H Plt Count (130 - 400 /CUMM) 339 239 MPV (7.4 - 10.4 FL) 11.1 H 11.1 H Gran % (42.2 - 75.2 %) 67.9 80.1 H Lymphocytes % (20.5 - 51.1 %) 18.4 L 9.5 L Monocytes % (1.7 - 9.3 %) 10.2 H 8.2 Eosinophils % (0 - 5 %) 2.1 1.5 Basophils % (0.0 - 2.0 %) 1.4 0.7 Absolute Granulocytes (1.4 - 6.5 /CUMM) 4.8 7.7 H Absolute Lymphocytes (1.2 - 3.4 /CUMM) 1.3 0.9 L Absolute Monocytes (0.10 - 0.60 /CUMM) 0.7 H 0.8 H Absolute Eosinophils (0.0 - 0.7 /CUMM) 0.1 0.1 Absolute Basophils (0.0 - 0.2 /CUMM) 0.1 0.1 09/17 09/16 0145 1700 Blood Gas pH (7.35 - 7.45 PH) 7.49 H pCO2 (35 - 45 TORR) 32 L pO2 (80 - 100 TORR) 86 HCO3 (21 - 28 MEQ/L) 24 ABG O2 Sat (Measured) (>96.0 %) 97.0 P-50 (Temp Corrected) Y Carboxyhemoglobin (1.5 - 5.0 %) 0.1 L O2 Concentration % 2 LPM Temperature (97.0 - 100.0 FARH) 97.4 O2 Delivery Method N/C Miscellaneous Phlebotomy Draw Site LEFT RADIAL Serology C. difficile Tox B Gene Pending Assessment/Plan Assessment/Plan 61-year-old male with type 2 diabetes, Charcot neuroarthropathy of the right mid tarsal and tarsometatarsal joints, with an improving large abscess of the dorsal lateral right hindfoot, improving decubitus lesions of the lateral malleolus and styloid process. The patient was seen and evaluated at bedside. His overall status is substantially improved from when I had initially seen him 5 days ago. He is now extubated, and routinely conversational. Continue directed therapy against group B strep with Unasyn, we'll follow-up infectious disease recommendations, he is very likely to require long-term course of IV antibiotics. The bandage may remain on today, the patient will be returned to the operating room for 1 more washout and possible delayed primary closure. He does not need to have his eliquis held due to the minor nature of the procedure, and the benefit that a presents to his overarching medical conditions. From a surgical standpoint, the patient is clear for out of bed to chair transfers and for any physical therapy activity that will improve his overall mobility and deconditioning. I will follow up on the patient tomorrow in the operating room, and based on the findings will begin planning for transfer to acute care and eventual discharge recommendations. Problem List: 1. Sepsis due to group B Streptococcus 2. Charcot's arthropathy Core Measures Venous Thromboembolism VTE Risk Factors Age>40 No Mechanical VTE Prophylaxis d/t N/A MechProphylax Ordered No VTE Pharm Prophylaxis d/t NA PharmProphylax ordered
--- NOTE | 2017-09-18 09:11 | PN- CRCU ---
Subjective HPI/Critical Care Issues: The patient is awake and alert. He reports feeling significantly improved overall. His oxygen saturations are in the high 90s and he is not requiring supplemental oxygen at times. He is afebrile. The patient is tolerating a diet without issue. Objective Current Medications: Current Medications Sig/Jasvir Start time Last Medication Dose Route Stop Time Status Admin Acetaminophen 1,000 MG .STK-MED ONE 09/17 2207 DC IV 09/17 220 Acetaminophen 1,000 MG .STK-MED ONE 09/17 1013 DC IV 09/17 1014 Acetaminophen 650 MG Q6P PRN 09/06 0345 AC PO Acetaminophen 1,000 MG Q6P PRN 09/06 0345 AC 09/17 IV 2213 Albuterol Sulfate 3 ML Q4P PRN 09/15 1715 AC INH Ampicillin 2,000 MG Q6 09/16 1200 AC 09/18 Sodium Chloride 100 ML IV 0516 Apixaban 5 MG BID 09/16 1129 DC 09/16 PO 2029 Aspirin 81 MG DAILY 09/15 1043 AC 09/18 PO 0817 Chlorhexidine 15 ML BID 09/11 0900 AC 09/18 Gluconate PO 0818 Dextrose/Sodium 1,000 ML Q13H 09/17 0000 DC 09/17 Chloride IV 09/17 1259 0111 Fentanyl Citrate 0 .STK-MED ONE 09/17 1404 DC .ROUTE Folic Acid 1 MG DAILY 09/07 1023 AC 09/18 PO 0817 Hydromorphone HCl 1 MG Q4 PRN 09/18 0028 AC 09/18 IV 0530 Hydromorphone HCl 1 MG Q6 PRN 09/18 0015 DC 09/18 IV 0021 Hydromorphone HCl 1 MG Q4P PRN 09/10 2215 DC 09/17 IV 2006 Insulin Aspart 0 TIDAC 09/18 0800 DC SC Insulin Aspart 0 Q4 09/17 1800 CAN SC Insulin Aspart 0 TIDAC 09/17 1800 AC 09/18 SC 0817 Insulin Aspart 0 Q4 09/17 0200 DC 09/17 SC 1523 Insulin Detemir 50 UNITS BID 09/17 2100 DC SC Insulin Detemir 20 UNITS BID 09/17 2100 AC 09/18 SC 0816 Magnesium Sulfate 1 GM ONCE ONE 09/17 1530 DC 09/17 Dextrose/Water 100 ML IV 09/17 1929 1600 Metoprolol Tartrate 5 MG ONCE ONE 09/17 1030 DC 09/17 IV 09/17 1031 1032 Metoprolol Tartrate 100 MG BID 09/11 0900 AC 09/18 PO 0817 Midazolam HCl 0 .STK-MED ONE 09/17 1404 DC .ROUTE Multivitamins 1 TAB DAILY 09/07 1023 AC 09/18 PO 0816 Pantoprazole Sodium 40 MG DAILY 09/09 0900 AC 09/18 IV 0816 Thiamine HCl 50 MG DAILY 09/07 1023 AC 09/18 PO 0817 Zinc Oxide 1 GATO TID PRN 09/11 1530 09/17 TOP 1016 Vital Signs & I&O Last 24 Hrs of Vitals and I&O: Vital Signs Date Time Temp Pulse Resp B/P B/P Pulse O2 O2 Flow FiO2 Mean Ox Delivery Rate 09/18 0817 83 140/60 09/18 0616 73 97 09/18 0400 95 Room Air 09/18 0346 71 97 09/18 0059 68 93 09/18 0000 97 Room Air 09/18 0000 96.8 64 20 128/70 97 Room Air 09/17 2218 67 96 09/17 2157 73 161/72 09/17 2000 99 Room Air 09/17 1822 96 Room Air 09/17 1613 96.4 60 22 122/64 98 Room Air 09/17 1600 99 Room Air 09/17 1300 98 Nasal 1.0L Cannula 09/17 1200 97 Nasal 1.0L Cannula 09/17 1032 66 132/71 Intake & Output 09/18 1600 09/18 0800 09/18 0000 Intake Total 400 1445 Output Total 750 1070 Balance -350 375 Intake, IV 200 525 Intake, Oral 200 920 Output, Other 100 Output, Stool 150 Output, Urine 650 920 Physical Exam General Appearance: Awake, comfortable, no respiratory distress, moving all extremities independently, following commands Head: atraumatic, normal appearance Neck: normal inspection, supple Respiratory: bilateral anterior rhonchi heard, lung sounds are clear otherwise Cardiovascular: S1 and S2 heard Gastrointestinal: normal bowel sounds, soft, non-tender Extremities: Right foot swelling, right lower extremity surgical dressings in place Skin: intact, warm and dry Results Last 24 Hrs of Lab Results: Laboratory Tests 09/18/17 0330: Sodium Pending, Potassium Pending, Chloride Pending, Carbon Dioxide Pending, Anion Gap Pending, BUN Pending, Creatinine Pending, Glucose Pending, Calcium Pending, Phosphorus Pending, Magnesium Pending, Total Bilirubin Pending, AST Pending, ALT Pending, Albumin Pending, CBC w Diff NO MAN DIFF REQ, RBC 3.17 L, MCV 82.1, MCH 26.7 L, MCHC 32.5 L, RDW 18.4 H, MPV 11.1 H, Gran % 67.9, Lymphocytes % 18.4 L, Monocytes % 10.2 H, Eosinophils % 2.1, Basophils % 1.4, Absolute Granulocytes 4.8, Absolute Lymphocytes 1.3, Absolute Monocytes 0.7 H, Absolute Eosinophils 0.1, Absolute Basophils 0.1 Impression/Plan Impression/Plan Impression/Plan: 1. MOF secondary to Group B strep bacteremia and mitral valve endocarditis, on ampicillin. 2. Acute on chronic renal failure, secondary to ATN, Cr stable. 3. Right lower extremity foot abscess and fractures, s/p debridement (09/15/17). 4. Improved hypoxic respiratory failure. 5. Hypernatremia. 6. Atrial fibrillation, in sinus rhythm. 7. CVA. 8. Positive troponins, suggestive of demand ischemia. 9. Cirrhosis, LFTs continue to improve. 10. Encephalopathy. 11. Malnutrition, on tube feeds. 12. Diarrhea, C. difficile negative. 13. Anemia, likely dilutional and related to multiple blood draws. Recommendations: * Continue ampicillin as per ID. * Pro line placement to be placed. * CT surgery evaluation requested. I will discuss with the surgical team. * Taper oxygen for sats greater than 92%. * Incentive spirometry. * Continue nebs/total respiratory care. * Physical therapy/OT evaluation today. * Out of bed to chair. * Nocturnal CPAP. * Continue with pain control as necessary. * DVT prophylaxis at all times. * The patient has significantly improved. We will continue all supportive care. * Downgrade to telemetry.
--- NOTE | 2017-09-18 11:02 | PN- Infect Dx ---
Subjective Subjective: Afebrile. He is unable to express specific complaints but he appears to have some discomfort in the right foot. He still has liquid stool in the rectal tube. Objective Last 24 Hrs of Vital Signs/I&O Vital Signs Date Time Temp Pulse Resp B/P B/P Pulse O2 O2 Flow FiO2 Mean Ox Delivery Rate 09/18 0817 83 140/60 09/18 0800 97.7 79 12 140/60 96 Room Air 09/18 0800 96 Room Air 09/18 0616 73 97 09/18 0400 95 Room Air 09/18 0346 71 97 09/18 0059 68 93 09/18 0000 97 Room Air 09/18 0000 96.8 64 20 128/70 97 Room Air 09/17 2218 67 96 09/17 2157 73 161/72 09/17 2000 99 Room Air 09/17 1822 96 Room Air 09/17 1613 96.4 60 22 122/64 98 Room Air 09/17 1600 99 Room Air 09/17 1300 98 Nasal 1.0L Cannula 09/17 1200 97 Nasal 1.0L Cannula Intake & Output 09/18 1600 09/18 0800 09/18 0000 Intake Total 400 1445 Output Total 750 1070 Balance -350 375 Intake, IV 200 525 Intake, Oral 200 920 Output, Other 100 Output, Stool 150 Output, Urine 650 920 Physical Exam Other Physical Findings: He is awake and alert in no acute distress Lungs are clear Heart regular rhythm with no murmur Abdomen is soft, nontender with positive bowel sounds Extremities right foot dressing intact Barber catheter remains in place Results Last 24 Hours of Lab Results: Laboratory Tests 09/18 0330 Chemistry Sodium (137 - 145 mmol/L) 143 Potassium (3.5 - 5.1 mmol/L) 4.5 Chloride (98 - 107 mmol/L) 107 Carbon Dioxide (22 - 30 mmol/L) 25 Anion Gap (5 - 16) 11 BUN (9 - 20 mg/dL) 47 H Creatinine (0.7 - 1.2 mg/dL) 1.8 H Estimated GFR (>60 ml/min) 39 L Glucose (65 - 99 mg/dL) 160 H Calcium (8.4 - 10.2 mg/dL) 8.5 Phosphorus (2.5 - 4.5 mg/dL) 4.4 Magnesium (1.6 - 2.3 mg/dL) 1.8 Total Bilirubin (0.2 - 1.3 mg/dL) 0.8 AST (17 - 59 U/L) 46 ALT (21 - 72 U/L) 36 Albumin (3.5 - 5.0 g/dL) 2.5 L Hematology CBC w Diff NO MAN DIFF REQ WBC (4.8 - 10.8 /CUMM) 7.0 RBC (4.70 - 6.10 /CUMM) 3.17 L Hgb (14.0 - 18.0 G/DL) 8.5 L Hct (42 - 52 %) 26.0 L MCV (80.0 - 94.0 FL) 82.1 MCH (27.0 - 31.0 PG) 26.7 L MCHC (33.0 - 37.0 G/DL) 32.5 L RDW (11.5 - 14.5 %) 18.4 H Plt Count (130 - 400 /CUMM) 339 MPV (7.4 - 10.4 FL) 11.1 H Gran % (42.2 - 75.2 %) 67.9 Lymphocytes % (20.5 - 51.1 %) 18.4 L Monocytes % (1.7 - 9.3 %) 10.2 H Eosinophils % (0 - 5 %) 2.1 Basophils % (0.0 - 2.0 %) 1.4 Absolute Granulocytes (1.4 - 6.5 /CUMM) 4.8 Absolute Lymphocytes (1.2 - 3.4 /CUMM) 1.3 Absolute Monocytes (0.10 - 0.60 /CUMM) 0.7 H Absolute Eosinophils (0.0 - 0.7 /CUMM) 0.1 Absolute Basophils (0.0 - 0.2 /CUMM) 0.1 Last 24 Hours of Shady Results: Stool C. difficile (toxin) September 16 negative Stool C. difficile PCR pending Assessment/Plan ID Impression: Doing well, with his temperatures now normal and white blood cell count remaining normal, on Ampicillin, Day 12 of treatment for Group B strep sepsis/ mitral valve endocarditis secondary to an infection in his right foot, status post drainage of an additional 8-10 cc of pus in the OR yesterday, with plans for return to the OR in the a.m with possible wound closure. His infection was not felt to extend to the bone, but he will require a 4-6 week course of IV antibiotics for endocarditis, based on his JESUS findings of a mitral valve vegetation. His hospital course has also been complicated by renal failure, which continues to improve, infarcts to the brain, possibly embolic given the JESUS findings, with some apparent residual deficit, and diarrhea, with his repeat C. difficile negative and PCR pending. Suggestion: 1. Follow-up stool C. difficile PCR 2. Await return to the OR in the a.m. 3. Await placement of the Pro-Line 4. Continue Ampicillin
--- NOTE | 2017-09-18 12:58 | PN- Diabetes ---
Assessment/Plan Diabetes Assessment: Patient was extubated on 09/17/2017. He was put on Levemir 20 units twice a day, Novolog coverage before meals. His FSGs were 176, 176, 155 and 192. Plan: 1. continue Levemir 20 units twice a day; 2. adjust Novolog coverage before meals; detail see the inpatient DM order; 3. continue monitoring FSGs. will follow. Inpatient Diabetes Orders Before Each Meal: Bolus Insulin: Novolog < 80 mg/dl: no coverage 80-100 mg/dl: 3 units 101-120 mg/dl: 3 units 121-150 mg/dl: 3 units 151-200 mg/dl: 4 units 201-250 mg/dl: 6 units 251-300 mg/dl: 8 units 301-350 mg/dl: 10 units 351-400 mg/dl: 12 units > 400 mg/dl: 14 units Subjective Subjective: He tolerated meals. Objective Last 24 Hrs of Vital Signs/I&O Vital Signs Date Time Temp Pulse Resp B/P B/P Pulse O2 O2 Flow FiO2 Mean Ox Delivery Rate 09/18 0817 83 140/60 09/18 0800 97.7 79 12 140/60 96 Room Air 09/18 0800 96 Room Air 09/18 0616 73 97 09/18 0400 95 Room Air 09/18 0346 71 97 09/18 0059 68 93 09/18 0000 97 Room Air 09/18 0000 96.8 64 20 128/70 97 Room Air 09/17 2218 67 96 09/17 2157 73 161/72 09/17 2000 99 Room Air 09/17 1822 96 Room Air 09/17 1613 96.4 60 22 122/64 98 Room Air 09/17 1600 99 Room Air 09/17 1300 98 Nasal 1.0L Cannula Intake & Output 09/18 1600 09/18 0800 09/18 0000 Intake Total 400 1445 Output Total 750 1070 Balance -350 375 Intake, IV 200 525 Intake, Oral 200 920 Output, Other 100 Output, Stool 150 Output, Urine 650 920 Findings Pertinent Lab/Shady Results: Laboratory Tests 09/18 0330 Chemistry Sodium (137 - 145 mmol/L) 143 Potassium (3.5 - 5.1 mmol/L) 4.5 Chloride (98 - 107 mmol/L) 107 Carbon Dioxide (22 - 30 mmol/L) 25 Anion Gap (5 - 16) 11 BUN (9 - 20 mg/dL) 47 H Creatinine (0.7 - 1.2 mg/dL) 1.8 H Estimated GFR (>60 ml/min) 39 L Glucose (65 - 99 mg/dL) 160 H Calcium (8.4 - 10.2 mg/dL) 8.5 Phosphorus (2.5 - 4.5 mg/dL) 4.4 Magnesium (1.6 - 2.3 mg/dL) 1.8 Total Bilirubin (0.2 - 1.3 mg/dL) 0.8 AST (17 - 59 U/L) 46 ALT (21 - 72 U/L) 36 Albumin (3.5 - 5.0 g/dL) 2.5 L Hematology CBC w Diff NO MAN DIFF REQ WBC (4.8 - 10.8 /CUMM) 7.0 RBC (4.70 - 6.10 /CUMM) 3.17 L Hgb (14.0 - 18.0 G/DL) 8.5 L Hct (42 - 52 %) 26.0 L MCV (80.0 - 94.0 FL) 82.1 MCH (27.0 - 31.0 PG) 26.7 L MCHC (33.0 - 37.0 G/DL) 32.5 L RDW (11.5 - 14.5 %) 18.4 H Plt Count (130 - 400 /CUMM) 339 MPV (7.4 - 10.4 FL) 11.1 H Gran % (42.2 - 75.2 %) 67.9 Lymphocytes % (20.5 - 51.1 %) 18.4 L Monocytes % (1.7 - 9.3 %) 10.2 H Eosinophils % (0 - 5 %) 2.1 Basophils % (0.0 - 2.0 %) 1.4 Absolute Granulocytes (1.4 - 6.5 /CUMM) 4.8 Absolute Lymphocytes (1.2 - 3.4 /CUMM) 1.3 Absolute Monocytes (0.10 - 0.60 /CUMM) 0.7 H Absolute Eosinophils (0.0 - 0.7 /CUMM) 0.1 Absolute Basophils (0.0 - 0.2 /CUMM) 0.1
--- NOTE | 2017-09-18 16:21 | Cons- Thoracic Surgery ---
General Information and HPI Consulting Request Date of Consult: 09/18/17 Requested By: Yordy Anand MD Reason for Consult: Cardiac surgical evaluation for endocarditis. Source of Information: patient, family, old records, PCP Exam Limitations: no limitations History of Present Illness: Patient is a 61-year-old gentleman admitted on 09/05/2017 with a cerebrovascular accident. At the time the patient was in atrial fibrillation was noted to have a left facial droop and speech changes. During the course of his evaluation he has had positive blood cultures along with an echocardiogram which shows some changes on the mitral valve. Cardiac surgical evaluation is asked for opinion regarding any need for consideration for urgent valve replacement. Allergies/Medications Allergies: Coded Allergies: No Known Allergies (02/19/16) Home Med List: Aspirin (Aspirin*) 81 MG TAB.CHEW 1 TAB PO DAILY HEART HEALTH (Reported) Atorvastatin Calcium 80 MG TABLET 1 TAB PO 1800 CHOLESTEROL (Reported) Bromocriptine Mesylate (Cycloset) 0.8 MG TABLET 1 TAB PO AD DM (Reported) Clopidogrel Bisulfate (Plavix) 75 MG TABLET 1 TAB PO DAILY HEART Please take as prescribed. Colchicine 0.6 MG TABLET 1 TAB PO BID GOUT (Reported) Empagliflozin (Jardiance) 25 MG TABLET 1 TAB PO DAILY DIABETES (Reported) Famotidine 20 MG TABLET 1 TAB PO BID GI (Reported) Insulin Aspart, Recombinant (Novolog Flexpen) 100 UNIT/ML INSULN.PEN DM ( Reported) Insulin Glargine,Hum.rec.anlog (Basaglar Kwikpen U-100) 100 UNIT/ML (3 ML) INSULN.PEN 20 UNITS SC QAM DM (Reported) Magnesium Oxide 400 MG TABLET 1 TAB PO BID SUPPLEMENT (Reported) Melatonin 3 MG TABLET 2 TAB PO QPM SLEEP (Reported) Metformin HCl 1,000 MG TABLET 1 TAB PO BID DIABETES (Reported) Metoprolol Tartrate 50 MG TABLET 1 TAB PO BID HEART/BP (Reported) Pantoprazole Sodium (Protonix) 40 MG TABLET.DR 1 TAB PO BID ULCER Please take as prescribed. Suvorexant (Belsomra) 20 MG TABLET 1 TAB PO QPM SLEEP (Reported) Valsartan 320 MG TABLET 1 TAB PO DAILY HEART (Reported) Current Medications: Current Medications Sig/Jasvir Start time Last Medication Dose Route Stop Time Status Admin Acetaminophen 1,000 MG .STK-MED ONE 09/17 2206 DC IV 07/25 2208 Acetaminophen 650 MG Q6P PRN 09/06 0345 AC PO Acetaminophen 1,000 MG Q6P PRN 09/06 0345 AC 09/17 IV 2213 Albuterol Sulfate 3 ML Q4P PRN 09/15 1715 AC INH Ampicillin 2,000 MG Q6 09/16 1200 AC 09/18 Sodium Chloride 100 ML IV 1227 Aspirin 81 MG DAILY 09/15 1043 AC 09/18 PO 0817 Chlorhexidine 15 ML BID 09/11 09 AC 09/18 Gluconate PO 0818 Dextrose/Sodium 1,000 ML Q13H 09/19 0600 AC Chloride IV 09/19 1859 Folic Acid 1 MG DAILY 09/07 1023 AC 09/18 PO 0817 Hydromorphone HCl 1 MG Q4 PRN 09/18 0028 AC 09/18 IV 1045 Hydromorphone HCl 1 MG Q6 PRN 09/18 0015 DC 09/18 IV 0021 Hydromorphone HCl 1 MG Q4P PRN 09/10 2215 DC 09/17 IV 2006 Insulin Aspart 0 TIDAC 09/18 0800 DC SC Insulin Aspart 0 Q4 09/17 1800 CAN SC Insulin Aspart 0 TIDAC 09/17 1800 AC 09/18 SC 09/18 2200 1229 Insulin Detemir 50 UNITS BID 09/17 2100 DC SC Insulin Detemir 20 UNITS BID 09/17 2100 AC 09/18 SC 0816 Insulin Human Regular 0 Q6 09/18 2359 AC SC Magnesium Sulfate 1 GM ONCE ONE 09/18 0930 DC 09/18 Dextrose/Water 100 ML IV 09/18 1329 1045 Magnesium Sulfate 1 GM ONCE ONE 09/17 1530 DC 09/17 Dextrose/Water 100 ML IV 09/17 1929 1600 Metoprolol Tartrate 100 MG BID 09/11 09 AC 09/18 PO 0817 Multivitamins 1 TAB DAILY 09/07 1023 AC 09/18 PO 0816 Pantoprazole Sodium 40 MG DAILY 09/09 09 AC 09/18 IV 0816 Thiamine HCl 50 MG DAILY 09/07 1023 AC 09/18 PO 0817 Zinc Oxide 1 GATO TID PRN 09/11 1530 AC 09/17 TOP 1016 Past History Medical History Blood Transfusion Hx: Yes Neurological: NONE EENT: hearing loss Cardiovascular: hypertension, hyperlipidemia, myocardial infarction Respiratory: obstructive sleep apnea Gastrointestinal: GERD Hepatic: cirrhosis Renal: NONE Musculoskeletal: gout Psychiatric: NONE Endocrine: diabetes Blood Disorders: NONE Cancer(s): prostate cancer DATABASE COORDINATOR/Reproductive: NONE Other Medical Hx: Recurrent cellulitis left thigh Surgical History Pertinent Surgical History: CABG, cholecystectomy, RIGHT GREAT TOE WOUND DEBRIDEMENT RIGHT GROIN ABSCESS/DRAIN AICD/pacemaker Family History Relations & Conditions If Any: FATHER Coronary artery bypass surgery Psychosocial History Where Do You Live? Home Smoking Status: Never Smoked ETOH Use: occasional use Review of Systems Review of Systems: Patient is not currently giving any complaints of chest pain dyspnea. He has had no fevers night sweats or chills. The rest of his 12 point review of systems is unremarkable. Exam & Diagnostic Data Vital Signs and I&O Vital Signs Date Time Temp Pulse Resp B/P B/P Pulse O2 O2 Flow FiO2 Mean Ox Delivery Rate 09/18 0817 83 140/60 09/18 0800 97.7 79 12 140/60 96 Room Air 09/18 0800 96 Room Air 09/18 0616 73 97 09/18 0400 95 Room Air 09/18 0346 71 97 09/18 0059 68 93 09/18 0000 97 Room Air 09/18 0000 96.8 64 20 128/70 97 Room Air 09/17 2218 67 96 09/17 2157 73 161/72 09/17 2000 99 Room Air 09/17 1822 96 Room Air Intake & Output 09/18 1600 09/18 0800 09/18 0000 09/17 1600 09/17 0800 09/17 0000 Intake Total 606 145 1266 431 968 9644.8 Output Total 198 175 7655 1000 1320 800 Balance -250 -350 375 -500 -528 1087.8 Intake, IV 200 525 500 792 737.8 Intake, Oral 700 200 920 0 Intake, Other 30 Intake, Tube 420 Feeding Intake, Tube 700 Irrigant Number 1 Bowel Movements Output, Other 100 Output, Stool 150 100 Output, Urine 950 650 307 697 1486 800 Physical Exam: On physical examination he appears well. Skin is warm and well perfused no suspicious lesions noted. The sclerae are anicteric and his mucous membranes are moist. There is no cervical or subclavicular lymphadenopathy. His breath sounds are clear and full bilaterally with no wheezes rhonchi noted. The cardiac exam shows an irregular rhythm and rate with no murmurs or sounds. The abdomen is soft and nontender with no masses. The periphery shows no cyanosis clubbing or edema. Neurologic exam is notable for some halting speech but no gross motor or sensory deficits. Last 24 Hours of Labs: Laboratory Tests 09/18 0330 Chemistry Sodium (137 - 145 mmol/L) 143 Potassium (3.5 - 5.1 mmol/L) 4.5 Chloride (98 - 107 mmol/L) 107 Carbon Dioxide (22 - 30 mmol/L) 25 Anion Gap (5 - 16) 11 BUN (9 - 20 mg/dL) 47 H Creatinine (0.7 - 1.2 mg/dL) 1.8 H Estimated GFR (>60 ml/min) 39 L Glucose (65 - 99 mg/dL) 160 H Calcium (8.4 - 10.2 mg/dL) 8.5 Phosphorus (2.5 - 4.5 mg/dL) 4.4 Magnesium (1.6 - 2.3 mg/dL) 1.8 Total Bilirubin (0.2 - 1.3 mg/dL) 0.8 AST (17 - 59 U/L) 46 ALT (21 - 72 U/L) 36 Albumin (3.5 - 5.0 g/dL) 2.5 L Hematology CBC w Diff NO MAN DIFF REQ WBC (4.8 - 10.8 /CUMM) 7.0 RBC (4.70 - 6.10 /CUMM) 3.17 L Hgb (14.0 - 18.0 G/DL) 8.5 L Hct (42 - 52 %) 26.0 L MCV (80.0 - 94.0 FL) 82.1 MCH (27.0 - 31.0 PG) 26.7 L MCHC (33.0 - 37.0 G/DL) 32.5 L RDW (11.5 - 14.5 %) 18.4 H Plt Count (130 - 400 /CUMM) 339 MPV (7.4 - 10.4 FL) 11.1 H Gran % (42.2 - 75.2 %) 67.9 Lymphocytes % (20.5 - 51.1 %) 18.4 L Monocytes % (1.7 - 9.3 %) 10.2 H Eosinophils % (0 - 5 %) 2.1 Basophils % (0.0 - 2.0 %) 1.4 Absolute Granulocytes (1.4 - 6.5 /CUMM) 4.8 Absolute Lymphocytes (1.2 - 3.4 /CUMM) 1.3 Absolute Monocytes (0.10 - 0.60 /CUMM) 0.7 H Absolute Eosinophils (0.0 - 0.7 /CUMM) 0.1 Absolute Basophils (0.0 - 0.2 /CUMM) 0.1 Other Results: I reviewed both the transthoracic and transesophageal echocardiogram. There is a suggestion of some mitral valve anterior leaflet thickening. I do not see any discrete mobile vegetation or thrombus on the valve. The patient has had positive blood cultures which have correlated with positive culture from his right foot. These were his initial blood cultures and subsequent cultures have been negative. Assessment/Plan Assessment/Plan 61-year-old gentleman with a cerebrovascular accident in the setting of atrial fibrillation. He did have positive blood cultures but these could be related to foot sepsis. Right now I see no evidence of a mobile type vegetation and therefore I think there is no indication for urgent surgical evaluation. I think the best option now is to complete a course of antibiotics for treatment of his bacteremia and then reevaluate afterwards. I do not think there is an active endocarditis process going on right now and he certainly has another possible reason for the cerebral embolus. Consult Acknowledgment - Thank you for your consult request.
[2017-09-18 22:35] VITALS: BP 118/62
[2017-09-19 06:28] VITALS: BP 144/66
--- NOTE | 2017-09-19 07:15 | PN- Housestaff ---
Marian Raza 09/19/17 0714: Subjective Follow-up For: Sepsis due to Group B strep Complaints: no complaints Tele-Events Since Last Visit: NSR. Brandon to 60 Subjective: Pt seen & examined in bed lying in bed in NAD on nasal CPAP. No complaints, no acute events. Review of Systems Constitutional: Reports: see HPI. Objective Last 24 Hrs of Vital Signs/I&O Vital Signs Date Time Temp Pulse Resp B/P B/P Pulse O2 O2 Flow FiO2 Mean Ox Delivery Rate 09/20 0657 98.3 62 18 120/68 95 CPAP 09/19 2255 80 95 09/19 2150 98.1 18 20 124/74 96 Room Air 09/19 2104 71 124/74 Intake & Output 09/20 1600 09/20 0800 09/20 0000 Intake Total 1200 220 Output Total 350 1350 Balance 850 -1130 Intake, IV 200 Intake, Oral 1000 220 Number 1 2 Bowel Movements Output, Urine 350 1350 Physical Exam General Appearance: Alert, Oriented X3, Cooperative, No Acute Distress Skin: No Rashes Skin Temp/Moisture Exam: Cool/Dry Sepsis Skin Exam (color): Normal for Ethnicity HEENT: Atraumatic, Mucous Membr. moist/pink Neck: Supple Cardiovascular: Regular Rate, Normal S1, Normal S2, No Murmurs Lungs: Clear to Auscultation, Normal Air Movement Abdomen: Normal Bowel Sounds, Soft, No Tenderness, No Hepatospenomegaly Neurological: Normal Speech, Strength at 5/5 X4 Ext, Normal Tone Extremities: No Clubbing, No Cyanosis, No Edema, Rt foot wrapped (abscess) Assessment/Plan Assessment: 65 y/o M with PMH of DM, Gout, PR s/p CABG on aspirin/plavix, hypertension and hyperlipidemia was brought to the ED by his after his ice cream scooper noticed slurred speech during a f/u for podagra. As per the , pt had sudden onset dysarthria, difficulty swallowing and L nasolabial fold drooping. On admission pertinent labs showed leukocytosis (12.8), thrombocytopenia (73), BUN/CR (58/2.3 ). EKG showed a-fib with RVR on admission with HR in the 180s, and pt was put on cardizem drip; he was admitted to the ICU for further management. Problems: * Grp B strep Bacteremia * Rt foot abscess * A fib w/ RVR * DEMETRIO * CVA * Acute hypoxemic resp failure-resolved * Endocarditis?? A & P: * Pt is going to Proline and rt foot abscess I and D and primary wound closure. We stopped his heparin and will restart after procedure. He is on IVF thata we will stop after procedure. 1. Acute Hypoxemic Respiratory Failure - resolved * Extubated and off ventilator * Sating well on room air 2. Atrial Fibrilliation with RVR - resolved * Continue Metoprolol 100mg BID * Eliquis on hold for Proline placement today 3. DEMETRIO * Improving. * Trend Renal function 4. Lacunar Infarct * No deficits noticed 5. Strep B bacteremia with ? endocarditis * Day 14 of antibiotics * Continue IV Ampicillin 2g q6. He will require a total of 4-6 weeks of antibiotics. 6. Elevated Troponins - resolved * type II PR 7. Hyperglycemia * Improved blood sugars * Cont. Insulin SS & Levemir 8. Thrombocytopenia - resolved * was likely in the setting of sepsis 9. Charcot athropathy with swellling/inflammation of right foot 10. Elevated LFTs - resolved 11. Hypernatremia - resolved Problem List: 1. Sepsis due to group B Streptococcus Pain Ratin Pain Location: none Pain Goal: Remain pain free Pain Plan: follow pain pathway Tomorrow's Labs & Rationales: cbc, bep Rashel GARCIA,Colton 09/19/172: Attending MD Review Statement Attending Statement Attending MD Statement: examined this patient, discuss w/resident/PA/GATE SHEAR OPERATOR, agreed w/resident/PA/GATE SHEAR OPERATOR, reviewed EMR data (avail), amended to note Attending Assessment/Plan: The patient was seen by me in the recovery room (post right foot wound closure by Dr. Ojeda - Podiatry & subsequent tunnel cath placement by Dr. Trevizo in IR ). The patient tolerated the procedures well and was in good spirits. He denied any dyspnea or significant pain. Appreciate ID and Endocrinology follow-up. Agree should discontinue palencia. Continue IV ampicillin. Plan is for STR.
[2017-09-19 08:17] LABS: ABSOLUTE BASOPHIL COUNT 0.1 /CUMM (0.0-0.2); ABSOLUTE EOSINOPHIL COUNT 0.1 /CUMM (0.0-0.7); ABSOLUTE GRANULOCYTE CT 3.5 /CUMM (1.4-6.5); ABSOLUTE MONOCYTE COUNT 0.6 /CUMM (0.10-0.60); BASOPHIL % 1.7 % (0.0-2.0); EOSINOPHIL % 2.2 % (0-5); GRANULOCYTE % 65.8 % (42.2-75.2); HEMATOCRIT 23.6 % (42-52); MEAN CORPUSCULAR HGB 27.4 PG (27.0-31.0); MEAN CORPUSCULAR HGB CONC 33.2 G/DL (33.0-37.0); MEAN CORPUSCULAR VOLUME 82.5 FL (80.0-94.0); MEAN PLATELET VOLUME 10.5 FL (7.4-10.4); PLATELET COUNT 298 /CUMM (130-400); RBC DISTRIBUTION WIDTH 18.4 % (11.5-14.5); RED BLOOD CELL CT 2.86 /CUMM (4.70-6.10); WHITE BLOOD CELL COUNT 5.3 /CUMM (4.8-10.8)
--- NOTE | 2017-09-19 09:17 | PN- Infect Dx ---
Subjective Subjective: Afebrile without complaints. No further diarrhea reported. Objective Last 24 Hrs of Vital Signs/I&O Vital Signs Date Time Temp Pulse Resp B/P B/P Pulse O2 O2 Flow FiO2 Mean Ox Delivery Rate 09/19 0830 65 144/66 09/19 0628 98.2 65 18 144/66 96 Room Air 09/19 0127 62 94 09/18 2235 97.8 70 18 118/62 97 Room Air 09/18 2108 70 118/62 09/18 1600 Room Air Intake & Output 09/19 1600 09/19 0800 09/19 0000 Intake Total 700 220 Output Total 700 900 Balance 0 -680 Intake, IV 700 Intake, Oral 220 Number 1 Bowel Movements Output, Urine 700 900 Physical Exam Other Physical Findings: He appears comfortable in no acute distress Lungs crackles at the right base Heart regular rhythm with no murmur Extremities right foot dressing intact Barber catheter remains in place Results Last 24 Hours of Lab Results: Laboratory Tests 09/19 0620 Chemistry Sodium (137 - 145 mmol/L) 143 Potassium (3.5 - 5.1 mmol/L) 4.1 Chloride (98 - 107 mmol/L) 108 H Carbon Dioxide (22 - 30 mmol/L) 24 Anion Gap (5 - 16) 11 BUN (9 - 20 mg/dL) 35 H Creatinine (0.7 - 1.2 mg/dL) 1.6 H Estimated GFR (>60 ml/min) 44 L Glucose (65 - 99 mg/dL) 133 H Calcium (8.4 - 10.2 mg/dL) 8.3 L Phosphorus (2.5 - 4.5 mg/dL) 4.1 Magnesium (1.6 - 2.3 mg/dL) 1.7 Total Bilirubin (0.2 - 1.3 mg/dL) 0.7 AST (17 - 59 U/L) 44 ALT (21 - 72 U/L) 33 Albumin (3.5 - 5.0 g/dL) 2.4 L Hematology CBC w Diff NO MAN DIFF REQ WBC (4.8 - 10.8 /CUMM) 5.3 RBC (4.70 - 6.10 /CUMM) 2.86 L Hgb (14.0 - 18.0 G/DL) 7.9 L Hct (42 - 52 %) 23.6 L MCV (80.0 - 94.0 FL) 82.5 MCH (27.0 - 31.0 PG) 27.4 MCHC (33.0 - 37.0 G/DL) 33.2 RDW (11.5 - 14.5 %) 18.4 H Plt Count (130 - 400 /CUMM) 298 MPV (7.4 - 10.4 FL) 10.5 H Gran % (42.2 - 75.2 %) 65.8 Lymphocytes % (20.5 - 51.1 %) 19.4 L Monocytes % (1.7 - 9.3 %) 10.9 H Eosinophils % (0 - 5 %) 2.2 Basophils % (0.0 - 2.0 %) 1.7 Absolute Granulocytes (1.4 - 6.5 /CUMM) 3.5 Absolute Lymphocytes (1.2 - 3.4 /CUMM) 1.0 L Absolute Monocytes (0.10 - 0.60 /CUMM) 0.6 Absolute Eosinophils (0.0 - 0.7 /CUMM) 0.1 Absolute Basophils (0.0 - 0.2 /CUMM) 0.1 Last 24 Hours of Shady Results: Stool C. 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 His infection was not felt to extend to the bone, but he will require a 4-6 week course of IV antibiotics for endocarditis, based on his JESUS findings of a mitral valve vegetation. 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 difficile PCR pending. Suggestion: 1. Await return to the OR later today 2. Remove Barber catheter 3. Follow-up stool C. difficile PCR 4. Continue Ampicillin
--- NOTE | 2017-09-19 11:04 | PN- Diabetes ---
Assessment/Plan Diabetes Assessment: Patient was extubated on 09/17/2017. Now he is in Tele. He was put on Levemir 20 units twice a day and Novolog coverage before meals. Before Each Meal: Bolus Insulin: Novolog < 80 mg/dl: no coverage 80-100 mg/dl: 3 units 101-120 mg/dl: 3 units 121-150 mg/dl: 3 units 151-200 mg/dl: 4 units 201-250 mg/dl: 6 units 251-300 mg/dl: 8 units 301-350 mg/dl: 10 units 351-400 mg/dl: 12 units > 400 mg/dl: 14 units His FSGs were 192, 134, 183, 156 and 150. He is going to have another procedure done today. He was kept NPO and is receiving D5 1/2 NS at 75 ml/hour. He is currently on RISS every 6 hours coverage and his FSGs have been stable. Plan: continue the current insulin regmen for now; after he is back from the procedure and when he is ready to eat, please stop IVF and RISS coverage. He will be on previous Levemir 20 units twice a day, Novolog coverage before meals and Novolog coverage at bedtime. will follow. Subjective Subjective: He feels well this morning. Objective Last 24 Hrs of Vital Signs/I&O Vital Signs Date Time Temp Pulse Resp B/P B/P Pulse O2 O2 Flow FiO2 Mean Ox Delivery Rate 09/19 0830 65 144/66 09/19 0628 98.2 65 18 144/66 96 Room Air 09/19 0127 62 94 09/18 2235 97.8 70 18 118/62 97 Room Air 09/18 2108 70 118/62 09/18 1600 Room Air Intake & Output 09/19 1600 09/19 0800 09/19 0000 Intake Total 700 220 Output Total 700 900 Balance 0 -680 Intake, IV 700 Intake, Oral 220 Number 1 Bowel Movements Output, Urine 700 900 Findings Pertinent Lab/Shady Results: Laboratory Tests 09/19 0620 Chemistry Sodium (137 - 145 mmol/L) 143 Potassium (3.5 - 5.1 mmol/L) 4.1 Chloride (98 - 107 mmol/L) 108 H Carbon Dioxide (22 - 30 mmol/L) 24 Anion Gap (5 - 16) 11 BUN (9 - 20 mg/dL) 35 H Creatinine (0.7 - 1.2 mg/dL) 1.6 H Estimated GFR (>60 ml/min) 44 L Glucose (65 - 99 mg/dL) 133 H Calcium (8.4 - 10.2 mg/dL) 8.3 L Phosphorus (2.5 - 4.5 mg/dL) 4.1 Magnesium (1.6 - 2.3 mg/dL) 1.7 Total Bilirubin (0.2 - 1.3 mg/dL) 0.7 AST (17 - 59 U/L) 44 ALT (21 - 72 U/L) 33 Albumin (3.5 - 5.0 g/dL) 2.4 L Hematology CBC w Diff NO MAN DIFF REQ WBC (4.8 - 10.8 /CUMM) 5.3 RBC (4.70 - 6.10 /CUMM) 2.86 L Hgb (14.0 - 18.0 G/DL) 7.9 L Hct (42 - 52 %) 23.6 L MCV (80.0 - 94.0 FL) 82.5 MCH (27.0 - 31.0 PG) 27.4 MCHC (33.0 - 37.0 G/DL) 33.2 RDW (11.5 - 14.5 %) 18.4 H Plt Count (130 - 400 /CUMM) 298 MPV (7.4 - 10.4 FL) 10.5 H Gran % (42.2 - 75.2 %) 65.8 Lymphocytes % (20.5 - 51.1 %) 19.4 L Monocytes % (1.7 - 9.3 %) 10.9 H Eosinophils % (0 - 5 %) 2.2 Basophils % (0.0 - 2.0 %) 1.7 Absolute Granulocytes (1.4 - 6.5 /CUMM) 3.5 Absolute Lymphocytes (1.2 - 3.4 /CUMM) 1.0 L Absolute Monocytes (0.10 - 0.60 /CUMM) 0.6 Absolute Eosinophils (0.0 - 0.7 /CUMM) 0.1 Absolute Basophils (0.0 - 0.2 /CUMM) 0.1
--- NOTE | 2017-09-19 12:18 | Discharge Summary ---
Visit Information Visit Dates Admission Date: 09/05/17 Discharge Date: 09/23/17 Hospital Course Course Attending Physician: Colton Kiser MD Primary Care Physician: [facility] Course: 65 y/o M with PMH of DM, Gout, [place] s/p CABG, hypertension and hyperlipidemia was brought to the ED by his after his material cutter noticed slurred speech during a f/u visit. As per the , pt had sudden onset dysarthria, difficulty swallowing and L nasolabial fold drooping. On admission pertinent labs showed leukocytosis (12.8), thrombocytopenia (73), BUN/CR (58/2.3). EKG showed a-fib with RVR on admission with HR in the 180s, and pt was put on cardizem drip; he was admitted to the ICU for further management. Below is a list of conditions he was seen and treated for Sepsis with Group B Bacteremia: He had a white count of 12.8 with tachycardia on admission with his right foot as a likely source of infection. He was started on IV Unasyn. Blood cultures were obtained which were positive for Group B strep. Imaging of his right foot showed fluid collection in the dorsum of foot which was aspirated under U/S guidance. Cultures obtained grew group B strep again. His antibiotic was later switched to Ampicillin. He underwent JESUS on 09/10 which showed possible vegetation on the anterior mitral valve leaflet. Due to this finding he will need 6 weeks of IV antibiotic. A Proline was thus placed for this purpose. Acute Hypoxemic Respiratory Failure: On admission, patient was hypoxic, requiring oxygen supplementation via NC. During his ICU stay his breathing became more tachypneic with increased work of breathing on high flow oxygen, requiring intubation. He was intubated for 9 days. On the 10th day, the patient self extubated himself. He was evaluated at the time and found to be in no acute respiratory distress and placed on 2L NC. As his condition improved, his oxygen was weaned off. Lacunar Infarct: Patient presented with complains of slurred speech. Initial CT scan of the head was negative for any intracranial pathology. A head/neck CTA was performed which did not reveal any significant stenosis or occlusions. Repeat Head CT on 09/08 showed findings concerning for evolving infarct in inferior aspect posterior limb right internal capsule/right hippocampal junction. During this finding, the patient was intubated and unable to be assessed for focal neurological deficits. A head CT was repeated on 09/15 to rule out hemorrhagic conversion and the patient was subsequently started on anticoagulation for his atrial fibrilliation. Post extubation, there were no focal neurological deficits noticed. Atrial Fibrilliation with RVR: He was started on IV Cardizem drip on admission to control his heart rate. He converted back to NSR the following day. He was transitioned to oral metoprolol which he should continue. He was initially monitored off anticoagulation due to low platelets and recent stroke. Once these issues resolved, he was started on Eliquis. DEMETRIO on CKD: Cr was elevated to 2.3 on admission. Likely 2/2 ischemic ATN in the setting of A fib with RVR and renal hypoperfusion. Unfortunately compounded by contrast administration which was done for Head/Neck CTA. Elevated Troponins: A modest elevation in troponins was noticed on his 2nd hospital stay. This was believed to be due to Type II [place]. An echocardiogram was obtained which showed normal LVEF and mild apical hypokinesis. Thrombocytopenia: Platelets were found to be low on admission which was likely in the setting of sepsis. He was transfused 1 unit pooled platelets on 09/09 as he was undergoing a JESUS. His CBC was monitored daily and his platelets were found to be improving. 9. Charcot athropathy with swellling/inflammation of right foot * Bedside I&D on 09/12 and 09/14. Patient underwent debridement of abscess in OR . Patient had a repeat I&D and closure on September 19. Patient can weight-bear and follow-up with podiatry Dr. Caballero as outpatient. Elevated LFTs: His LFTs were found to be elevated on admission. Etiology unclear but could be in the setting of sepsis. His statin was put on hold and his LFTs were monitored daily and found to be improving. Hypernatremia - resolved Patient advised to follow-up with Dr. Caballero material cutter within 1-2 weeks. Patient can weight-bear. Allergies: Coded Allergies: No Known Allergies (02/19/16) Significant Procedures: SERVICE DATE: 09/15/17-0500 EXAM TYPE: RAD - XRY-PORTABLE CHEST XRAY FINDINGS: Endotracheal tube stably positioned 5 cm above the biju. Dual-lead ICD leads are stable. No pneumothorax. Pulmonary vascularity within normal limits. Normal heart size in the frontal projection. No large pleural effusion. IMPRESSION: Stable lines and tubes. No evidence of pulmonary edema. SERVICE DATE: 09/15/17- EXAM TYPE: CAT - CT HEAD WO IV CONTRAST FINDINGS: The celaya-white matter differentiation is well preserved. No evidence of an acute major vascular territory infarction, hemorrhage, extra-axial fluid collection, mass or midline shift. The ventricles have normal size and configuration. Mild atherosclerotic calcification of cavernous carotid arteries. The calvarium is intact and the mastoid air cells and middle ear cavities are well aerated. Again noted is mucosal thickening of the sphenoid sinus and anterior ethmoid air cells. The visualized orbits, globes and temporomandibular joints are unremarkable. IMPRESSION: No acute intracranial pathology compared to 09/12/2017. No evidence of acute cerebral infarction or intracranial hemorrhage. SERVICE DATE: 09/14/17-0500 EXAM TYPE: RAD - XRY-PORTABLE CHEST XRAY FINDINGS: Significant improved aeration is noted bilaterally. The tip of the endotracheal tube is located approximately 6 cm above the level of the biju. AICD device is visualized, the leads are intact. The cardiomediastinal silhouette is within normal limits. Postop changes of sternotomy and CABG is seen. The tip of the enteric tube is not included within the [id number], appears infradiaphragmatic. IMPRESSION: Significant improved aeration since the prior study dated 09/11/2017. The tip of the endotracheal tube is located approximately 6 cm above the level of the biju. SERVICE DATE: 09/10/17- EXAM TYPE: US - US-SUPERFICIAL IMAGING EXTREMITY FINDINGS: Corresponding to the CT scan findings, there is extensive cutaneous edema seen throughout the dorsum of the right foot, measuring up to 0.5 cm in thickness. With color Doppler imaging, no hyperemia of the thickened skin is seen. There is also prominent subcutaneous diffuse edema in the soft tissues of the entire dorsum of the right foot. In the dorsum of the hind and midfoot, in region of the fragmented navicular bone and impacted talus bone, a complex dorsal deep soft tissue fluid collection is seen with low-level internal echoes and multiple echogenic bone fragment seen. This collection appears to be extending into the intertarsal joints and measures approximately 3.2 x 1.0 x 3.7 cm in size. With color Doppler imaging, prominent hyperemia is seen in the periphery of this complex collection. IMPRESSION: 1. Complex deep soft tissue collection is seen in the dorsum of the right mid and hindfoot in region of the fragmented navicular bone and impacted talus bone demonstrated on CT scan. There appears to be extension of this collection into the intertarsal joints. Finding are nonspecific and may represent a septic joint, deep soft tissue abscess, or hematoma. 2. Extensive cutaneous and subcutaneous edema throughout the dorsum of the foot. SERVICE DATE: 09/08/17 EXAM TYPE: RAD - XRY-PORTABLE CHEST XRAY FINDINGS: Interval placement of endotracheal tube which terminates approximately 5 cm above biju. Dual lead left-sided isthmic device in place. Status post median sternotomy. Stable cardiomegaly. Interval worsening vascular congestion and bilateral interstitial edema. Trace pleural effusion. Hazy opacity noted in the retrocardiac region left base likely representing infiltrate or atelectasis. IMPRESSION: Endotracheal tube terminates approximately 5 cm above the biju. Worsening vascular congestion and bilateral interstitial edema. Increasing opacity retrocardiac region left base consistent with infiltrate or atelectasis. Trace effusion suspected. SERVICE DATE: 09/08/17 EXAM TYPE: CAT - CT HEAD WO IV CONTRAST FINDINGS: Examination is slightly degraded by patient motion. Slight head tilt is also limiting the assessment. There is no evidence of acute intracranial hemorrhage or territorial infarction. No abnormal mass effect or midline shift is seen. Celaya to white matter differentiation is well preserved. No extra-axial fluid collections are identified. There is subtle low-attenuation noted in the inferior aspect posterior limb right internal capsule/right hippocampal junction. (Series 2 image 26). Findings may represent evolving infarct. Additional region of subtle low-attenuation noted in the cortical/subcortical region right posterior frontal parafalcine region. (Series 2 image 49). This finding appears slightly more conspicuous on the current study. Findings may represent age indeterminate small cortical infarct. The osseous structures and soft tissues are normal. The mastoid air cells and visualized portions of the paranasal sinuses are well aerated. IMPRESSION: 1. New subtle low-attenuation noted in the junction of the posterior limb and internal capsule and right hippocampal junction. Evolving infarct in the appropriate clinical setting cannot be excluded. Further assessment with MRI recommended. 2. Subtle cortical low-attenuation right frontal parafalcine region appears more conspicuous on the current examination. Findings may represent small cortical infarct. SERVICE DATE: 09/07/17- EXAM TYPE: CARD - TRANSESOPHAGEAL ECHO FINDINGS Left Ventricle Normal size left ventricle. Left ventricular ejection fraction is estimated at 55 %. Mild apical hypokinesis. Right Ventricle Normal right ventricular size and function. Right Atrium Normal right atrial size. Left Atrium Mild left atrial dilatation. LA Appendage IA Septum Normal interatrial septum. Mitral Valve Mitral valve is thickened. There is a possible vegetation on the anterior mitral leaflet. Mild mitral regurgitation. Aortic Valve Aortic valve is mildly thickened with no definite vegetations. No aortic stenosis. Trace aortic regurgitation. Tricuspid Valve Structurally normal tricuspid valve. Trace tricuspid regurgitation. Pulmonic Valve Pulmonic valve not well visualized, grossly normal. Pericardium No pericardial effusion. Great Vessels There is mild atherosclerosis of the descending thoracic aorta. CONCLUSIONS Normal size left ventricle. Left ventricular ejection fraction is estimated at 55 %. Mild apical hypokinesis. Mild left atrial dilatation. There is a possible vegetation on the anterior mitral leaflet. Mild mitral regurgitation. Trace tricuspid regurgitation. Trace aortic regurgitation. SERVICE DATE: 09/06/17- EXAM TYPE: US-EXT BILAT VENOUS DOPPLER FINDINGS: Respiratory variation, normal compression and augmented flow are noted throughout the lower extremities. The visualized common femoral vein, proximal greater saphenous vein, femoral vein, profunda femoral vein, popliteal vein and mid calf peroneal and posterior tibial venous segments show no evidence of deep venous thrombosis. There is no Armendariz's cyst. IMPRESSION: Normal triplex scan without evidence of deep venous thrombosis involving the lower extremities. SERVICE DATE: 09/06/17- EXAM TYPE: US - US-COMPLETE ABDOMEN; FINDINGS: PANCREAS: Normal. ABDOMINAL AORTA: The proximal segment is normal in caliber. INFERIOR VENA CAVA: Visualized portions are normal. LIVER: There is hepatomegaly. The liver demonstrates a lobular contour and heterogeneous echogenicity. No focal lesion or intrahepatic biliary duct dilatation. GALLBLADDER: Surgically absent. COMMON BILE DUCT: Normal in caliber measuring 0.5 cm in diameter. RIGHT KIDNEY: Normal. No hydronephrosis. No renal calculi or focal parenchymal lesions. The kidney measures 13.0 cm in maximum dimension. LEFT KIDNEY: Normal. No hydronephrosis. No renal calculi or focal parenchymal lesions. The kidney measures 13.1 cm in maximum dimension. SPLEEN: No focal finding. The spleen measures 17.1 cm in maximum dimension. FREE FLUID: None. IMPRESSION: 1. There is hepatosplenomegaly. 2. There is heterogeneous hepatic echotexture, consistent with fatty infiltration or hepatocellular disease. Lobulated contour favors cirrhosis. Please correlate clinically. No focal hepatic mass or intrahepatic biliary dilatation is seen. 3. The gallbladder is surgically absent. SERVICE DATE: 09/05/17 EXAM TYPE: RAD - XRY-PORTABLE CHEST XRAY FINDINGS: Dual-lead AICD is in place with leads in the right ventricle and right atrium. CABG markers and sternal wires overlie the chest. Heart is enlarged. There is pulmonary venous congestion. Lung volumes are borderline low with mild bibasilar atelectasis. No consolidation, pneumothorax, or pleural effusion. Osseous structures are unremarkable. IMPRESSION: Cardiomegaly with pulmonary venous congestion. No pulmonary edema. Mild bibasilar atelectasis in the lung volumes. SERVICE DATE: 09/05/17 EXAM TYPE: CAT - CT HEAD ANGIOGRAM; CT NECK ANGIOGRAM FINDINGS: BRAIN: There is no pathologic enhancement intracranially. There is no intracranial hemorrhage, hydrocephalus, extra-axial surface collection, midline shift, or other herniation pattern. Celaya to white matter differentiation is diffusely maintained without evidence of an evolved acute territorial infarct. The basilar cisterns are preserved. No significant soft tissue abnormality. No acute osseous abnormality. The paranasal sinuses and the mastoid air cells are well-aerated. CERVICAL SOFT TISSUES AND LUNG APICES: No significant soft tissue findings within the neck. Imaged upper lungs are clear. There is cervical spondylosis. Median sternotomy wires. NECK CTA: There is a classic 3 vessel configuration of the aortic arch. Proximal arch vessels are non-stenotic. The vertebral arteries are codominant. No significant ostial stenosis is visualized on either side. Both vertebral arteries are widely patent throughout their extracranial cervical course. Both common carotid arteries are normal in caliber bilaterally. There is calcific atherosclerotic disease involving the carotid bifurcations bilaterally without significant stenosis involving the internal carotid arteries bilaterally. BRAIN CTA: Atherosclerotic calcification throughout the carotid siphons bilaterally without significant stenosis. No focal flow-limiting stenosis, discrete proximal large artery occlusion, or saccular intradural aneurysm is identified. Timing of the contrast bolus allows assessment of the major dural venous sinuses, which all opacify normally. IMPRESSION: - No acute intracranial findings. - Calcific atherosclerotic disease without significant arterial stenosis and without acute arterial occlusion within the head or neck. SERVICE DATE: 09/05/17 EXAM TYPE: CAT - CT HEAD WO IV CONTRAST FINDINGS: There is no evidence of acute intracranial hemorrhage or territorial infarction. No abnormal mass effect or midline shift is seen. Celaya to white matter differentiation is well preserved. No extra-axial fluid collections are identified. The ventricles are normal in size. There is no abnormal attenuation within the brain parenchyma. The osseous structures and soft tissues are normal. The mastoid air cells and visualized portions of the paranasal sinuses are well aerated. IMPRESSION: No acute intracranial pathology. Pertinent Lab Results: Head CT September 22 No acute intracranial pathology. NECK CTA - No acute intracranial findings. - Calcific atherosclerotic disease without significant arterial stenosis and without acute arterial occlusion within the head or neck. Chest x-ray Cardiomegaly with pulmonary venous congestion. No pulmonary edema. Mild bibasilar atelectasis in the lung volumes. Lower extremity CT Fragmented displaced fracture fragments of the navicular and mild impaction of the distal talus suggests a neuropathic foot. There are numerous subchondral cyst/erosions throughout the midfoot which may be secondary to an inflammatory arthropathy. Diffuse soft tissue and subcutaneous edema without a focal fluid collection to indicate an abscess. Echocardiogram Left Ventricle Normal size left ventricle. Amity hypokinetic. Borderline normal left ventricular ejection fraction estimated at 50-55%. Disposition Summary Disposition Principal Diagnosis: Acute Hypoxemic Respiratory Failure Atrial Fibrilliation with RVR DEMETRIO on CKD Lacunar Infarct Sepsis with Strep Group B Elevated Troponins Thrombocytopenia Charcot athropathy Swellling/inflammation of right foot Elevated LFTs Possible Endocarditis Additional Diagnosis: Diabetes Gout [place] s/p CABG hypertension hyperlipidemia Discharge Disposition: Acute Rehab Facility Discharge Instructions General Discharge Information Code Status: Full Code Patient's Diet: Diabetic Patient's Activity: As tolerated Follow-Up Instructions/Appts: Please follow up with your PCP and avionics safety inspector within one week of discharge. Medications at Discharge Discharge Medications: Stop taking the following medications: Famotidine (Famotidine) 20 MG TABLET ORAL TWICE DAILY Continue taking these medications: Metformin HCl (Metformin HCl) 1,000 MG TABLET 1 Tablet ORAL TWICE DAILY Qty = 180 Comments: NOT GIVEN IN HOSPTIAL Empagliflozin (Jardiance) 25 MG TABLET 1 Tablet ORAL DAILY Qty = 30 Comments: NOT GIVEN IN HOSPTIAL Melatonin (Melatonin) 3 MG TABLET 2 Tablet ORAL Every night Comments: NOT GIVEN IN HOSPITAL Atorvastatin Calcium (Atorvastatin Calcium) 80 MG TABLET 1 Tablet ORAL 1800 Qty = 90 Comments: NOT GIVEN IN HOSPITAL Aspirin (Aspirin*) 81 MG TAB.CHEW 1 Tablet ORAL DAILY Comments: Last Taken:09/23/17 Time:0739 Suvorexant (Belsomra) 20 MG TABLET 1 Tablet ORAL Every night Qty = 30 Comments: NOT GIVEN IN HOSPTIAL Magnesium Oxide (Magnesium Oxide) 400 MG TABLET 1 Tablet ORAL TWICE DAILY Qty = 180 Comments: NOT GIVEN IN HOSPIOTAL Valsartan (Valsartan) 320 MG TABLET 1 Tablet ORAL DAILY Qty = 90 Comments: NOT GIVEN IN HOSPTIAL Clopidogrel Bisulfate (Plavix) 75 MG TABLET 1 Tablet ORAL DAILY Qty = 30 Instructions: Please take as prescribed. Comments: NOT GIVEN IN HOSPITAL Pantoprazole Sodium (Protonix) 40 MG TABLET.DR 1 Tablet ORAL TWICE DAILY Qty = 60 Instructions: Please take as prescribed. Comments: Last Taken:09/22/17 Time:0748 Colchicine (Colchicine) 0.6 MG TABLET 1 Tablet ORAL TWICE DAILY Qty = 12 Comments: NOT GIVEN IN HOSPITAL Insulin Aspart, Recombinant (Novolog Flexpen) 100 UNIT/ML INSULN.PEN Units SC BEFORE MEALS AND AT BEDTIME Qty = 15 Metoprolol Tartrate (Metoprolol Tartrate) 50 MG TABLET 1 Tablet ORAL TWICE DAILY Qty = 180 Comments: Last Taken:09/23/17 Time:0739 Insulin Glargine,Hum.rec.anlog (Basaglar Kwikpen U-100) 100 UNIT/ML (3 ML) INSULN.PEN 20 Units SC Every Morning Start taking the following new medications: Ampicillin Sodium (Ampicillin Sodium) 2 GRAM VIAL 1 VIAL IV EVERY SIX HOURS Qty = 112 No Refills Comments: STOP ANTIBIOTICS ON 10/11/17 Last Taken:09/23/17 Time:0503 Apixaban (Eliquis) 5 MG TABLET 5 Milligram ORAL TWICE DAILY Qty = 60 No Refills Comments: Last Taken:09/23/17 Time:0739 Copies To: Margot Pierre DO, MD Review Statement Documenting Attending: Eduin Birch MD Other Findings: Discharge in stable condition. Patient has history of anemia which was worked up with negative endoscopy in the past. He had a PillCam study done prior to admission. He is to follow-up with his gastroenterology service as an outpatient for the results of the study
--- NOTE | 2017-09-19 13:36 | Operative Report ---
Operative/Inv Procedure Report Surgery Date: 09/19/17 Name of Procedure: 1. Incision and drainage, right foot through the deep fascia multiple dorsal compartments 2. Primary closure of surgical wound, right foot Pre-Operative Diagnosis: 1. Abscess, right foot, rule out necrotizing soft tissue infection 2. Secondary surgical wound, right foot Post-Operative Diagnosis: 1. Abscess, right foot, rule out necrotizing soft tissue infection 2. Secondary surgical wound, right foot Estimated Blood Loss: less than 50ml Surgeon/Couturiere: Etienne Ojeda DPM Anesthesia: moderate sedation, 18cc 2% Lidocaine plain / 0.25% Marcaine right ankle block Drains: None Specimens: None Microbiology: None Tourniquet: None Complications: None Condition: Stable Operative Indication: This is a 61-year-old male with type 2 diabetes who has been under my care since September 12 for a large abscess on the dorsal lateral right hindfoot from group B strep. The patient also has positive vegetations consistent with endocarditis and positive bacteremia upon admission. Patient is also battling stroke, and is newly been placed on Eliquis. The patient has also recently been diagnosed during my consultation with Charcot neuroarthropathy of the right tarsometatarsal and midtarsal joints. He has had multiple incision and drainage and washout procedures on the and , and has incrementally improved since my date of consultation. Today's procedure is to perform one more washout , and if there is no purulence found, to attempt delayed primary closure. Operative/Procedure Note Note: After the right foot and ankle were prepped and draped with Betadine, attention was directed to the dorsal lateral aspect of the right hindfoot where a 6 cm linear incision was identified angling proximal to distal and roughly parallel with the lateral gutter of the ankle. The bursal compartments of the distal leg lateral foot and dorsal foot were all bluntly explored again, but this time no purulence was found, there is no new necrotic tissue and only sanguinous drainage. His decubitus lesions over the lateral malleolus and styloid process of stabilized and to dry eschars and the bullous changes on the anterior ankle and stabilized into partial thickness eschars as well. Surgical wound was extended approximately 1 cm proximally using a #15 blade. Surgical wound and multiple dorsal compartments were then washed out using a 3 layer combination of normal saline and bacitracin solution. Retention closure was then performed using 2-0 Prolene with a tapered needle to protect the damaged skin with interrupted horizontal mattress and simple sutures. Surgical wound was then dressed with Betadine soaked Adaptic, some fluff gauze, multiple abdominal pads, one roll of Kerlix, and a sterile 4 inch Nico bandage. Discharge Disposition: Critical Care Unit Additional Comments: The patient was escorted to the postanesthesia care unit in no apparent distress , afebrile, vital signs stable, neurovascular status intact with good capillary refill times all 5 digits on the operative side. Based on my intraoperative findings, I do not believe he will require further surgical management, but he will be monitored over the weekend for any new onset of fever or increased white count. His white count has trended down incrementally since my initial procedure at bedside on the . We will continue to monitor the surgical wound and his stabilizing decubitus lesions for the next 2-3 days, and from that point if he remains stable, he will be considered for discharge planning. I will follow-up on patient Friday morning. The patient and his are both aware that the patient will only be under my care for the . I am relocating and leaving my current position after that date, and his subsequent care will be transitioned to Rylan Caballero DPM. The patient also received his noon dose of ampicillin, which was administered through an existing IV by the anesthesiology team. CC: Jeffery GARCIA,Xavier Davis
--- NOTE | 2017-09-19 17:14 | INTERVENTIONAL RADIOLOGY RPT ---
PROLINE INSERTION (TUNNELED PICC) CLINICAL HISTORY: 61-year-old male requiring proline for long-term IV antibiotics. INTERVENTIONAL RADIOLOGIST: Nadeem Trevizo M.D. MEDICATION: - 1% lidocaine used for local anesthetic, 10 mL. -50 mcg of fentanyl was administered intravenously by a dedicated radiology nurse under my direct supervision. FLUOROSCOPY TIME: 0.6 minutes DOSE AREA PRODUCT: 2.4 Gy-cm2 (ignacio-centimeter squared) PROCEDURE IN DETAIL: Informed consent was obtained from the patient's prior to the procedure. During this process, the procedure and potential alternatives were explained to the patient and his along with the intended outcome and benefits. The risks of the procedure including the possibility of an unsuccessful procedure, as well as the risk of not doing the procedure were discussed. The patient and his were given the opportunity to ask questions regarding the procedure and appeared competent to make decisions. A signed consent form which documents this discussion was placed in the medical record. Following informed consent, the patient was placed supine on the fluoroscopic table. A time out procedure was performed. The right neck and upper chest were prepped and draped in usual sterile fashion. All elements of maximal sterile barrier technique were followed including use of cap, mask, sterile gown, sterile gloves, a sterile full body drape and hand hygiene. The skin was prepared with 2% chlorhexidine for cutaneous antisepsis and sterile ultrasound preparation with sterile gel and probe cover was performed when applicable. Real-time ultrasound was performed to obtained venous mapping and vascular access assessment. Using standard interventional, sterile and Seldinger technique a micro-stick system was utilized to enter into the right internal jugular vein. A wire was introduced into the superior vena cava and measurements were taken. The needle was exchanged for a peel-away sheath. The wire was advanced into the IVC to confirm venous placement. At this time the tunneling location was determined and anesthetized with 1% lidocaine with epinephrine. A small jay was made in the upper right chest and the catheter was tunneled subcutaneously to the venotomy site. The wire and inner portion of the peel-away sheath were then quickly removed and the overlying catheter advanced through the peel-away sheath. Fluoroscopic imaging was used to verify positioning at the cavoatrial junction. The lumen was aspirated and flushed to ensure patency. The PROLINE catheter was secured into position using a StatLock device. A sterile dressing was placed over the site. The venotomy site was closed using Dermabond. The patient tolerated the procedure well and was discharged from the department in good condition. ULTRASOUND-GUIDED VASCULAR ACCESS: Ultrasound was used to identify the right internal jugular vein. The right internal jugular vein was confirmed to be patent. Real time imaging confirmed needle access into the right internal jugular vein. An image was saved for permanent recording in PACS. COMPLICATIONS: None. IMPRESSION: Successful ultrasound and fluoroscopically guided placement of a PROLINE catheter via the right internal jugular vein.
[2017-09-19 21:50] VITALS: BP 124/74
[2017-09-19 22:51] LABS: C.DIFFICILE TOXIN B QL PCR NOT DETECTED (NOT DETECTED)
[2017-09-20 06:57] VITALS: BP 120/68
[2017-09-20 08:18] LABS: ABSOLUTE BASOPHIL COUNT 0 /CUMM (0.0-0.2); ABSOLUTE EOSINOPHIL COUNT 0 /CUMM (0.0-0.7); ABSOLUTE GRANULOCYTE CT 3.6 /CUMM (1.4-6.5); ABSOLUTE MONOCYTE COUNT 0.6 /CUMM (0.10-0.60); BASOPHIL % 0.5 % (0.0-2.0); EOSINOPHIL % 0.4 % (0-5); HEMATOCRIT 23.4 % (42-52); MEAN CORPUSCULAR HGB 27.1 PG (27.0-31.0); MEAN CORPUSCULAR HGB CONC 32.5 G/DL (33.0-37.0); MEAN CORPUSCULAR VOLUME 83.2 FL (80.0-94.0); MEAN PLATELET VOLUME 10.1 FL (7.4-10.4); PLATELET COUNT 314 /CUMM (130-400); RBC DISTRIBUTION WIDTH 18.1 % (11.5-14.5); RED BLOOD CELL CT 2.82 /CUMM (4.70-6.10); WHITE BLOOD CELL COUNT 5.2 /CUMM (4.8-10.8)
--- NOTE | 2017-09-20 10:52 | PN- Housestaff ---
See Addendum Subjective Follow-up For: Acute hypoxemic respiratory failure Atrial fibrillation with RVR DEMETRIO Possible CVA Strep B bacteremia Subjective: Patient seen resting in the bed. He reports that last night he had an episode of confusion where he did not understand where he was what was going on. He feels that if he is better oriented to hospital plan during this admission he will be calmer. Overall patient is feeling "rundown", but denies shortness of breath, chest pain, dizziness, nausea/vomiting. He has some swelling of the right lower extremity status post yesterday's procedure this is intact wrapped in Nico bandage. He complains of no pain distally. Review of Systems Constitutional: Denies: chills, fever, weakness. Cardiovascular: Denies: chest pain, palpitations, peripheral edema. Respiratory: Denies: cough, short of breath. Gastrointestinal: Denies: bloating, nausea, vomiting. Neurological/Psychological: Reports: confusion. Objective Last 24 Hrs of Vital Signs/I&O Vital Signs Date Time Temp Pulse Resp B/P B/P Pulse O2 O2 Flow FiO2 Mean Ox Delivery Rate 09/20 0657 98.3 62 18 120/68 95 CPAP 09/19 2255 80 95 09/19 2150 98.1 18 20 124/74 96 Room Air 09/19 2104 71 124/74 Intake & Output 09/20 1600 09/20 0800 09/20 0000 Intake Total 1200 220 Output Total 350 1350 Balance 850 -1130 Intake, IV 200 Intake, Oral 1000 220 Number 1 2 Bowel Movements Output, Urine 350 1350 Physical Exam General Appearance: Alert, Oriented X3, Cooperative, No Acute Distress HEENT: Atraumatic, PERRLA, EOMI Neck: Supple, No JVD, No thryomegaly Cardiovascular: Regular Rate, Normal S1, Normal S2, No Murmurs Lungs: Clear to Auscultation Abdomen: Normal Bowel Sounds, Soft, No Tenderness Current Medications: Current Medications Sig/Jasvir Start time Last Medication Dose Route Stop Time Status Admin Acetaminophen 1,000 MG .STK-MED ONE 09/19 1133 DC IV 09/19 1134 Acetaminophen 650 MG Q6P PRN 09/06 0345 AC PO Acetaminophen 1,000 MG Q6P PRN 09/06 0345 AC 09/19 IV 1632 Albuterol Sulfate 3 ML Q4P PRN 09/15 1715 AC INH Ampicillin 2,000 MG Q6 09/16 1200 AC 09/20 Sodium Chloride 100 ML IV 0606 Apixaban 5 MG BID 09/19 2100 AC 09/19 PO 2104 Aspirin 81 MG DAILY 09/15 1043 AC 09/18 PO 0817 Chlorhexidine 15 ML BID 09/11 0900 AC 09/19 Gluconate PO 2106 Dextrose/Sodium 1,000 ML Q13H 09/19 0030 DC 09/19 Chloride IV 09/19 1329 0103 Fentanyl Citrate 0 .STK-MED ONE 09/19 1512 DC .ROUTE Fentanyl Citrate 100 MCG .STK-MED ONE 09/19 1133 DC IM 09/19 1134 Folic Acid 1 MG DAILY 09/07 1023 AC 09/18 PO 0817 Heparin Sodium 0 .STK-MED ONE 09/19 1359 DC (Porcine) IV Hydromorphone HCl 2 MG .STK-MED ONE 09/19 1311 DC IM 09/19 1312 Hydromorphone HCl 1 MG Q4 PRN 09/18 0028 AC 09/19 IV 0930 Insulin Aspart 0 TIDAC 09/19 1700 AC 09/20 SC 0930 Insulin Detemir 20 UNITS BID 09/17 2100 AC 09/20 SC 1036 Insulin Human Regular 0 Q6 09/18 2359 DC 09/19 SC 0539 Lidocaine 0 .STK-MED ONE 09/19 1359 DC .ROUTE Lidocaine/Epinephrine 0 .STK-MED ONE 09/19 1359 DC .ROUTE Metoprolol Tartrate 100 MG BID 09/11 0900 AC 09/19 PO 210 Midazolam HCl 2 MG .STK-MED ONE 09/19 1133 DC IM 09/19 1134 Multivitamins 1 TAB DAILY 09/07 1023 AC 09/18 PO 0816 Pantoprazole Sodium 40 MG DAILY 09/09 0900 AC 09/19 IV 0829 Thiamine HCl 50 MG DAILY 09/07 1023 AC 09/18 PO 0817 Zinc Oxide 1 GATO TID PRN 09/11 1530 AC 09/17 TOP 1016 Last 24 Hrs of Lab/Shady Results Last 24 Hrs of Labs/Mics: Laboratory Tests 09/20/17 0715: Anion Gap 9, Estimated GFR 44 L, BUN/Creatinine Ratio 23.1, CBC w Diff NO MAN DIFF REQ, RBC 2.82 L, MCV 83.2, MCH 27.1, MCHC 32.5 L, RDW 18.1 H, MPV 10.1, Gran % 68.0, Lymphocytes % 18.8 L, Monocytes % 12.3 H, Eosinophils % 0.4, Basophils % 0.5, Absolute Granulocytes 3.6, Absolute Lymphocytes 1.0 L, Absolute Monocytes 0.6, Absolute Eosinophils 0, Absolute Basophils 0 Assessment/Plan Assessment: 65 y/o M with PMH of DM, Gout, [place] s/p CABG on aspirin/plavix, hypertension and hyperlipidemia was brought to the ED by his after his chef german noticed slurred speech during a f/u for podagra. As per the , pt had sudden onset dysarthria, difficulty swallowing and L nasolabial fold drooping. On admission pertinent labs showed leukocytosis (12.8), thrombocytopenia (73), BUN/CR (58/2.3 ). EKG showed a-fib with RVR on admission with HR in the 180s, and pt was put on cardizem drip; he was admitted to the ICU for further management. Here in the telemetry floor, patient underwent abscess debridement in the operating room for the right lower extremity, as well as tunneled cath placement in IR for outpatient antibiotics. On telemetry, his heart rate has been under control with the current regimen. Problems: 1. Acute hypoxemic respiratory failure (resolved) 2. Atrial Fibrilliation with RVR - resolved 3. DEMETRIO 4. Charcot athropathy with swellling/inflammation of right foot 5. Strep B bacteremia with possible endocarditis 6. Diabetes mellitus Plan: * Day 14 of antibiotics * Status post OR debridement of abscess right lower extremity * Continue metoprolol * Continue antibiotics, day 14 of ampicillin * Continue monitoring renal function Problem List: 1. Sepsis due to group B Streptococcus 2. Bacteremia 3. DEMETRIO (acute kidney injury) 4. CVA (cerebral vascular accident) 5. Endocarditis 6. Coagulopathy 7. Charcot's arthropathy 8. Atrial fibrillation with RVR Pain Ratin Pain Location: none Pain Goal: Pain 4 or less Pain Plan: per pathway Tomorrow's Labs & Rationales: CBC & BEP
[2017-09-20 14:37] VITALS: BP 132/80
--- NOTE | 2017-09-20 15:22 | PN- Endocrinology ---
Assessment/Plan Endoscopy Assessment: I have reveiwed BG readings and insulin dosage for the past 2 days. BG has been climbing to the 200 range. No hypoglycemia. Plan: Please continue Levemir 20 units bid. Please give Novolog 4 units before each meal if he can eat. Please use sliding scale insulin novolog ACHS according to the following scale: 151-200 1 unit 201-250 2 unit 251-300 3 unit 301-350 4 unit 351-400 5 unit >400 6 unit and contact provider. Subjective Subjective: I have reveiwed BG readings and insulin dosage for the past 2 days. BG has been climbing to the 200 range. No hypoglycemia. Objective Last 24 Hrs of Vital Signs/I&O Vital Signs Date Time Temp Pulse Resp B/P B/P Pulse O2 O2 Flow FiO2 Mean Ox Delivery Rate 09/20 1437 98.1 60 18 132/80 98 Nasal Cannula 09/20 1112 128/80 09/20 0657 98.3 62 18 120/68 95 CPAP 09/19 2255 80 95 09/19 2150 98.1 18 20 124/74 96 Room Air 09/19 2104 71 124/74 Intake & Output 09/20 1600 09/20 0800 09/20 0000 Intake Total 1200 220 Output Total 350 1350 Balance 850 -1130 Intake, IV 200 Intake, Oral 1000 220 Number 1 1 2 Bowel Movements Output, Urine 350 1350
[2017-09-20 22:32] VITALS: BP 144/76
[2017-09-21 06:58] VITALS: BP 134/82
--- NOTE | 2017-09-21 08:02 | PN- Infect Dx ---
Subjective Subjective: Afebrile. He feels well with no complaints. He did report right foot pain yesterday. Objective Last 24 Hrs of Vital Signs/I&O Vital Signs Date Time Temp Pulse Resp B/P B/P Pulse O2 O2 Flow FiO2 Mean Ox Delivery Rate 09/21 0658 98.4 60 18 134/82 96 CPAP 09/21 0000 CPAP 09/20 2232 97.7 63 18 144/76 96 Nasal Cannula 09/20 2211 94 Room Air Room Air 09/20 2206 94 09/20 2046 63 144/76 09/20 1600 Room Air 09/20 1437 98.1 60 18 132/80 98 Nasal Cannula 09/20 1112 128/80 Intake & Output 09/21 0800 09/21 0000 09/20 1600 Intake Total 260 610 900 Output Total 500 Balance 260 610 400 Intake, IV 140 130 150 Intake, Oral 120 480 750 Number 1 2 Bowel Movements Output, Urine 500 Physical Exam Other Physical Findings: He appears comfortable, currently on BiPAP, but in no acute distress Chest Pro-Line in place in the right upper chest with no inflammation at the site Lungs crackles at the right base Heart regular rhythm with no murmur Extremities right foot dressing intact Results Last 24 Hours of Lab Results: Laboratory Tests 09/21 0600 Chemistry Sodium Pending Potassium Pending Chloride Pending Carbon Dioxide Pending Anion Gap Pending BUN Pending Creatinine Pending BUN/Creatinine Ratio Pending Hematology CBC w Diff Pending WBC Pending RBC Pending Hgb Pending Hct Pending MCV Pending MCH Pending MCHC Pending RDW Pending Plt Count Pending MPV Pending Last 24 Hours of Shady Results: Stool C. difficile PCR negative Assessment/Plan ID Impression: Doing well, with his temperatures and white blood cell count remaining normal, on Ampicillin, Day 15 of treatment for Group B strep sepsis/mitral valve endocarditis secondary to an infection in his right foot, status post further drainage, with primary closure of the wound, 2 days ago, with no purulence found. His infection was not felt to extend to the bone, but he will require a 4-6 week course of IV antibiotics for endocarditis, based on his JESUS findings of a mitral valve vegetation. His hospital course has also been complicated by renal failure, which continues to improve, infarcts to the brain, possibly embolic given the JESUS findings and diarrhea, with his C. difficile toxin and PCR both negative. Suggestion: 1. Continue Ampicillin to plan on a 4-6 week course of antibiotics Kaity Cope MD will be covering until September 24
[2017-09-21 08:36] LABS: ABSOLUTE BASOPHIL COUNT 0.1 /CUMM (0.0-0.2); ABSOLUTE EOSINOPHIL COUNT 0.1 /CUMM (0.0-0.7); ABSOLUTE GRANULOCYTE CT 4.3 /CUMM (1.4-6.5); ABSOLUTE LYMPH COUNT 1.4 /CUMM (1.2-3.4); ABSOLUTE MONOCYTE COUNT 0.9 /CUMM (0.10-0.60); BASOPHIL % 1.2 % (0.0-2.0); EOSINOPHIL % 2.1 % (0-5); GRANULOCYTE % 62.5 % (42.2-75.2); HEMATOCRIT 23.5 % (42-52); MEAN CORPUSCULAR HGB 27.5 PG (27.0-31.0); MEAN CORPUSCULAR HGB CONC 33.2 G/DL (33.0-37.0); MEAN CORPUSCULAR VOLUME 82.9 FL (80.0-94.0); MEAN PLATELET VOLUME 9.7 FL (7.4-10.4); PLATELET COUNT 328 /CUMM (130-400); RBC DISTRIBUTION WIDTH 17.8 % (11.5-14.5); RED BLOOD CELL CT 2.83 /CUMM (4.70-6.10); WHITE BLOOD CELL COUNT 6.9 /CUMM (4.8-10.8)
--- NOTE | 2017-09-21 08:53 | PN- Podiatry ---
Subjective Subjective: Patient seen and evaluated at bedside status post multiple incision and drainage procedures for large abscess of the dorsal lateral right hindfoot, and is postoperative day 2 delayed primary closure. Patient is seen and evaluated in no apparent distress, afebrile, fully conversational, alert and oriented 3, denies fever, chills, nausea, vomiting, diaphoresis, shortness of breath, chest pain at the time of my examination. Review of Systems: A 14 point review of systems was performed, and was found to be negative apart from the patient's complaints described above in the history of present illness. Objective Vital Signs and I&Os Vital Signs Date Time Temp Pulse Resp B/P B/P Pulse O2 O2 Flow FiO2 Mean Ox Delivery Rate 09/21 0658 98.4 60 18 134/82 96 CPAP 09/21 0000 CPAP 09/20 2232 97.7 63 18 144/76 96 Nasal Cannula 09/20 2211 94 Room Air Room Air 09/20 2206 94 09/20 2046 63 144/76 09/20 1600 Room Air 09/20 1437 98.1 60 18 132/80 98 Nasal Cannula 09/20 1112 128/80 Intake & Output 09/21 1600 09/21 0800 09/21 0000 09/20 1600 09/20 0800 09/20 0000 Intake Total 260 054 333 4739 220 Output Total 302 612 1085 Balance 260 610 400 850 -1130 Intake, IV 140 130 150 200 Intake, Oral 120 200 746 4139 220 Number 1 2 1 2 Bowel Movements Output, Urine 601 756 0485 Physical Exam: Neurovascular status is unchanged, musculoskeletal exam is deferred to the physical therapy consult on given overall weakness from his resolving sepsis and recent cerebrovascular accident. The dressing is clean, dry, and intact, with no strikethrough, and only mild serous drainage in the area of the suture line. There is no dehiscence, there is no devitalization of the surrounding skin. His previous early stage decubitus lesions over the lateral malleolus and styloid process on the right foot as well as the anteromedial right ankle have all stabilized into dry eschars. The erythema is almost completely resolved, there is no new ecchymosis, there is no fluctuance, there is no crepitus, there is no new necrosis of skin, there are no bullous changes. There is +1 residual pitting edema in the right lower extremity, none in the left lower extremity. Current Medications: Current Medications Sig/Jasvir Start time Last Medication Dose Route Stop Time Status Admin Acetaminophen 650 MG Q6P PRN 09/06 0345 AC PO Acetaminophen 1,000 MG Q6P PRN 09/06 0345 AC 09/19 IV 1632 Albuterol Sulfate 3 ML Q4P PRN 09/15 1715 AC INH Ampicillin 2,000 MG Q6 09/16 1200 AC 09/21 Sodium Chloride 100 ML IV 0608 Apixaban 5 MG BID 09/19 2100 AC 09/20 PO 2039 Aspirin 81 MG DAILY 09/15 1043 AC 09/20 PO 1104 Chlorhexidine 15 ML BID 09/11 0900 AC 09/20 Gluconate PO 204 Folic Acid 1 MG DAILY 09/07 1023 AC 09/20 PO 1104 Hydromorphone HCl 1 MG Q4 PRN 09/18 0028 AC 09/20 IV 2052 Insulin Aspart 0 TIDAC 09/19 1700 AC 09/20 SC 1656 Insulin Detemir 20 UNITS BID 09/17 2100 AC 09/20 SC 203 Lactobacillus 1 CAP BID 09/20 2100 AC 09/20 Acidophilus PO 2038 Metoprolol Tartrate 100 MG BID 09/11 0900 AC 09/20 PO 2046 Multivitamins 1 TAB DAILY 09/07 1023 AC 09/20 PO 1104 Pantoprazole Sodium 40 MG DAILY 09/09 0900 AC 09/20 IV 1112 Thiamine HCl 50 MG DAILY 09/07 1023 AC 09/20 PO 1104 Zinc Oxide 1 GATO TID PRN 09/11 1530 AC 09/17 TOP 1016 Results Last 48 Hours of Labs: Laboratory Tests 09/21 09/20 0600 0715 Chemistry Sodium (137 - 145 mmol/L) 142 140 Potassium (3.5 - 5.1 mmol/L) 3.9 4.5 Chloride (98 - 107 mmol/L) 107 106 Carbon Dioxide (22 - 30 mmol/L) 25 25 Anion Gap (5 - 16) 10 9 BUN (9 - 20 mg/dL) 34 H 37 H Creatinine (0.7 - 1.2 mg/dL) 1.5 H 1.6 H Estimated GFR (>60 ml/min) 48 L 44 L BUN/Creatinine Ratio (7 - 25 %) 22.7 23.1 Hematology CBC w Diff Pending NO MAN DIFF REQ WBC (4.8 - 10.8 /CUMM) Pending 5.2 RBC (4.70 - 6.10 /CUMM) Pending 2.82 L Hgb (14.0 - 18.0 G/DL) Pending 7.6 L Hct (42 - 52 %) Pending 23.4 L MCV (80.0 - 94.0 FL) Pending 83.2 MCH (27.0 - 31.0 PG) Pending 27.1 MCHC (33.0 - 37.0 G/DL) Pending 32.5 L RDW (11.5 - 14.5 %) Pending 18.1 H Plt Count (130 - 400 /CUMM) Pending 314 MPV (7.4 - 10.4 FL) Pending 10.1 Gran % (42.2 - 75.2 %) 68.0 Lymphocytes % (20.5 - 51.1 %) 18.8 L Monocytes % (1.7 - 9.3 %) 12.3 H Eosinophils % (0 - 5 %) 0.4 Basophils % (0.0 - 2.0 %) 0.5 Absolute Granulocytes (1.4 - 6.5 /CUMM) 3.6 Absolute Lymphocytes (1.2 - 3.4 /CUMM) 1.0 L Absolute Monocytes (0.10 - 0.60 /CUMM) 0.6 Absolute Eosinophils (0.0 - 0.7 /CUMM) 0 Absolute Basophils (0.0 - 0.2 /CUMM) 0 Assessment/Plan Assessment/Plan 61-year-old type II diabetic male with newly diagnosed Charcot 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 Patient was seen and evaluated at bedside The incision line was painted with Betadine, and a dry sterile dressing was applied I again discussed the findings of the CAT scan regarding his newly diagnosed Charcot neuroarthropathy. He will be clear for short distances of partial weightbearing with walker assist as well as OOB to chair activities to aid in recovery of his overall condition, but he will require a RLE AFO or [place] brace long-term once the acute illness resolves and his lesions and incision heal. I discussed the case with Dr. Gil on Friday, and I agree with his recommendation for a 6 week course of directed therapy against the group B strep I again reinforced with the patient that I will be relocating after September 23, and that his care will be transferred to Rylan Caballero DPM at that point. I will follow-up again on the patient Friday and Friday prior to transition of care. From a surgical standpoint he is clear for transfer to home or to a short -term rehabilitation facility depending on his home needs for PT, long-term IVABx in the ICU is a very Problem List: 1. Charcot's arthropathy 2. Sepsis due to group B Streptococcus Core Measures Venous Thromboembolism VTE Risk Factors Age>40 No Mechanical VTE Prophylaxis d/t N/A MechProphylax Ordered No VTE Pharm Prophylaxis d/t NA PharmProphylax ordered
--- NOTE | 2017-09-21 09:00 | PN- Housestaff ---
Marian Raza 09/21/17 0900: Subjective Follow-up For: Sepsis due to GBS Rt foot abscess a fib with RVR DEMETRIO CVA Endocarditis? Complaints: no complaints Tele-Events Since Last Visit: NSR Subjective: Pt seen and examined in bed lying in NAD. No complaints/no acute events. Review of Systems Constitutional: Reports: see HPI. Objective Last 24 Hrs of Vital Signs/I&O Vital Signs Date Time Temp Pulse Resp B/P B/P Pulse O2 O2 Flow FiO2 Mean Ox Delivery Rate 09/21 223 CPAP 09/21 223 98.8 68 18 132/64 94 Room Air 09/21 2118 60 97 09/21 2028 152/62 09/21 1449 98.1 66 18 124/74 96 Room Air 09/21 0954 130/80 09/21 0800 96 Room Air 09/21 0658 98.4 60 18 134/82 96 CPAP Intake & Output 09/22 0800 09/22 0000 09/21 1600 Intake Total 850 Output Total 950 1150 Balance -950 -300 Intake, IV 150 Intake, Oral 700 Number 2 Bowel Movements Output, Urine 950 1150 Patient 233 lb Weight Weight Bed scale Measurement Method Physical Exam General Appearance: Alert, Oriented X3, Cooperative Skin: No Rashes, No Breakdown, No Significant Lesion Skin Temp/Moisture Exam: Cool/Dry Sepsis Skin Exam (color): Normal for Ethnicity HEENT: Atraumatic, Mucous Membr. 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 As per the , pt had sudden onset dysarthria, difficulty swallowing and L nasolabial fold drooping. On admission pertinent labs showed leukocytosis (12.8), thrombocytopenia (73), BUN/CR (58/2.3). EKG showed a-fib with RVR on admission with HR in the 180s, and pt was put on cardizem drip; he was admitted to the ICU for further management. He was stepped down to the Tele floor on 09/18/17. Problems: * Grp B strep Bacteremia * Rt foot abscess * A fib w/ RVR on eliquis * DEMETRIO * CVA * Acute hypoxemic resp failure-resolved * Endocarditis?? A & P: * Pt is s/p Proline and rt foot abscess I and D & primary wound closure. 1. Acute Hypoxemic Respiratory Failure - resolved * Sating well on room air 2. Atrial Fibrilliation with RVR - resolved * Continue Metoprolol 100mg BID * Edyta. Eliquis 3. DEMETRIO * Improving 4. Lacunar Infarct * No deficits noticed. stable 5. Strep B bacteremia with ? endocarditis * Day 15 of antibiotics * Continue IV Ampicillin 2g q6. He will require a total of 4-6 weeks of antibiotics. 6. Elevated Troponins - resolved * type II [place] 7. Hyperglycemia * Improved blood sugars * Cont. Insulin SS & Levemir 8. Thrombocytopenia - resolved * was likely in the setting of sepsis 9. Charcot athropathy with swellling/inflammation of right foot 10. Elevated LFTs - resolved 11. Hypernatremia - resolved DVT PX: Eliquis Code: Full code Diet: Carb consistent diet 1 Problem List: 1. Atrial fibrillation with RVR 2. Sepsis due to group B Streptococcus 3. Bacteremia Pain Ratin Pain Location: rt foot Pain Goal: Remain pain free Pain Plan: n/a Tomorrow's Labs & Rationales: cbc, bep Violeta Lugo 09/21/17 1221: Attending MD Review Statement Attending Statement Attending MD Statement: examined this patient, discuss w/resident/PA/HOUSE RN, agreed w/resident/PA/HOUSE RN, discussed with family, reviewed EMR data (avail), discussed with nursing, discussed with case mgmt, reviewed images, amended to note Attending Assessment/Plan: Patient with no new complaints. s/p Drainage and closure by Dr Quintanilla 09/19. F/ u official podiatry recommnedations at discharge. STR awaiting bed availability. Continue current care with iv antibiotics as per ID recommendations.
--- NOTE | 2017-09-21 14:38 | PN- Endocrinology ---
Assessment/Plan Endoscopy Assessment: His BG has declined significantly last night. Plan: Please reduce Levemir to 20 units in AM and 10 units in PM. Please give Novolog 4 units before each meal if he can eat. Please use sliding scale insulin novolog ACHS in order to correct hypoglycemia according to the following scale: 151-200 1 unit 201-250 2 unit 251-300 3 unit 301-350 4 unit 351-400 5 unit >400 6 unit and contact provider. Will follow Subjective Subjective: BG went down significantly over last night. Objective Last 24 Hrs of Vital Signs/I&O Vital Signs Date Time Temp Pulse Resp B/P B/P Pulse O2 O2 Flow FiO2 Mean Ox Delivery Rate 09/21 0954 130/80 09/21 0800 96 Room Air 09/21 0658 98.4 60 18 134/82 96 CPAP 09/21 0000 CPAP 09/20 2232 97.7 63 18 144/76 96 Nasal Cannula 09/20 2211 94 Room Air Room Air 09/20 2206 94 09/20 2046 63 144/76 09/20 1600 Room Air 09/20 1437 98.1 60 18 132/80 98 Nasal Cannula Intake & Output 09/21 1600 09/21 0800 09/21 0000 Intake Total 260 610 Output Total 600 Balance -600 260 610 Intake, IV 140 130 Intake, Oral 120 480 Number 1 Bowel Movements Output, Urine 600
[2017-09-21 14:49] VITALS: BP 124/74
[2017-09-21 22:33] VITALS: BP 132/64
[2017-09-22 05:46] VITALS: BP 138/70
--- NOTE | 2017-09-22 06:52 | PN- Housestaff ---
Marian Raza 09/22/17 0652: Subjective Follow-up For: Sepsis due to GBS Rt foot abscess s/p I&D, Primary closure a fib with RVR DEMETRIO CVA Ant mitral leaflet Endocarditis? Complaints: no complaints Tele-Events Since Last Visit: NSR. HR 60s Subjective: Pt seen and examined in bed in [facility]. He was dozing and on nasal CPAP. He complains of a mild rt foot pain on site of I&D overnight. 6/10 intensity. No events overnight. Review of Systems Constitutional: Reports: see HPI. Objective Last 24 Hrs of Vital Signs/I&O Vital Signs Date Time Temp Pulse Resp B/P B/P Pulse O2 O2 Flow FiO2 Mean Ox Delivery Rate 09/22 2339 CPAP 09/22 2234 97.9 60 18 158/88 97 Room Air 09/22 2158 60 94 09/22 2001 59 164/74 09/22 1625 Room Air Room Air 09/22 1408 98.8 61 18 129/65 97 Room Air 09/22 1000 96 Room Air 09/22 0748 64 148/60 09/22 0546 97.8 60 18 138/70 96 Intake & Output 09/23 0800 09/23 0000 09/22 1600 Intake Total 100 600 Output Total 800 Balance -700 600 Intake, IV 200 Intake, Oral 100 400 Output, Urine 800 Patient 231 lb Weight Physical Exam General Appearance: Alert, Oriented X3, Cooperative, No Acute Distress Skin Temp/Moisture Exam: Cool/Dry Sepsis Skin Exam (color): Normal for Ethnicity HEENT: Atraumatic, Mucous Membr. 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 As per the , pt had sudden onset dysarthria, difficulty swallowing and L nasolabial fold drooping. On admission pertinent labs showed leukocytosis (12.8), thrombocytopenia (73), BUN/CR (58/2.3). EKG showed a-fib with RVR on admission with HR in the 180s, and pt was put on cardizem drip; he was admitted to the ICU for further management. He was stepped down to the Tele floor on 09/18/17. Vitals: Stable. afebrile, sating well on RA Problems: * Grp B strep Bacteremia * Rt foot abscess s/p I&D and primary closure * A fib w/ RVR on eliquis * DEMETRIO * CVA * Acute hypoxemic resp failure-resolved * Vegetation on Ant Mitral valve leaflet A & P: # pt is stable. Anticipated d/c to STR #Atrial Fibrilliation with RVR - resolved * Continue Metoprolol 100mg BID * Edyta. Eliquis #Strep B bacteremia with ant mitral valve leaflet, ? endocarditis * Day 16 of antibiotics * Continue IV Ampicillin 2g q6. He will require a total of 4-6 weeks of antibiotics. #Hyperglycemia * will follow endo recs on blood sugar control after d/c #Will repeat CBC and will f/u with PCP, podiatry, cardiology,gastro (Pill cam study done previously) within one week of d/c DVT PX: Eliquis Code: Full code Diet: Carb consistent diet 1 Problem List: 1. Bacteremia 2. Atrial fibrillation with RVR 3. Sepsis due to group B Streptococcus 4. Mitral valve vegetation Pain Ratin Pain Location: rt foot pain 6/10 Pain Goal: Pain 4 or less Pain Plan: follow pain pathway Tomorrow's Labs & Rationales: Chip Dejesus MDxavi 09/22/17 1511: Attending MD Review Statement Attending Statement Attending Statement: examined this patient, discuss w/resident/PA/INSTALLMENT ACCOUNT CHECKER, agreed w/resident/PA/INSTALLMENT ACCOUNT CHECKER, reviewed EMR data (avail), discussed with nursing, discussed with case mgmt, amended to note Attending Assessment/Plan: Patient seen and examined. Resting comfortably not in any acute distress. No issues overnight reported by nursing staff. Currently resting comfortably. Denies pain currently in the lower extremity. Pleural line is in place and is scheduled to complete 6 week course of antibiotic therapy. Due to the need for antibiotic therapy and need for adequate wound care recommendations are to discharge patient to nursing home facility for short-term rehabilitation. Patient is in agreement with this plan. He will be discharged once a bed becomes available. Patient remains anemic. Hemoglobin level remains stable since transfusion earlier during this admission. He was admitted with a gastrointestinal bleed earlier this year. He had non-diagnostic endoscopic studies. He apparently had a PillCam done as an outpatient a few days prior to hospitalization. Recommendations: -No need for blood transfusion at present. Recommend close monitoring of the hemoglobin level while here in the hospital and as an outpatient. -Please recheck to the gastroenterology service for results of the PillCam study. -Follow-up with the podiatry service for wound care recommendations. -Anticipate discharge once a bed becomes available at a nursing home facility.
[2017-09-22 08:09] LABS: ABSOLUTE BASOPHIL COUNT 0.1 /CUMM (0.0-0.2); ABSOLUTE MONOCYTE COUNT 0.8 /CUMM (0.10-0.60); BASOPHIL % 1.1 % (0.0-2.0); HEMATOCRIT 23.6 % (42-52); MEAN CORPUSCULAR HGB CONC 32.6 G/DL (33.0-37.0); RED BLOOD CELL CT 2.82 /CUMM (4.70-6.10); WHITE BLOOD CELL COUNT 5.4 /CUMM (4.8-10.8)
[2017-09-22 08:36] LABS: ABSOLUTE EOSINOPHIL COUNT 0.2 /CUMM (0.0-0.7); ABSOLUTE GRANULOCYTE CT 3.1 /CUMM (1.4-6.5); ABSOLUTE LYMPH COUNT 1.3 /CUMM (1.2-3.4); EOSINOPHIL % 3.3 % (0-5); GRANULOCYTE % 57.8 % (42.2-75.2); MEAN CORPUSCULAR HGB 27.3 PG (27.0-31.0); MEAN CORPUSCULAR VOLUME 83.7 FL (80.0-94.0); MEAN PLATELET VOLUME 9.6 FL (7.4-10.4); PLATELET COUNT 271 /CUMM (130-400); RBC DISTRIBUTION WIDTH 18.4 % (11.5-14.5)
--- NOTE | 2017-09-22 10:21 | PN- Diabetes ---
Assessment/Plan Diabetes Assessment: 61 y/o male with a complicated past medical history, was admitted for a stroke complicated with beta strep B sepsis, right LE cellulitis, ? endocarditis, acute renal insufficiency. Now he is in Tele. His po intake has been poor. Over the weekend, his glucose level dropped and levemor was decreased to 20 units am and 10 units at bedtime. In addition, he is on Novolog coverage before meals when his glucose level is > 150. His FSGs were 120, 112, 132 and 97. Plan: 1. decrease Levemir to 20 units daily in the morning; 2. adjust Novolog coverage before meals and Novolog coverage at bedtime; detail see the inpatient DM orders; 3. monitor FSGs. will follow. Inpatient Diabetes Orders Before Each Meal: Bolus Insulin: Novolog < 80 mg/dl: no coverage 80-100 mg/dl: no coverage 101-120 mg/dl: no coverage 121-150 mg/dl: no coverage 151-200 mg/dl: 2 units 201-250 mg/dl: 3 units 251-300 mg/dl: 4 units 301-350 mg/dl: 5 units 351-400 mg/dl: 6 units > 400 mg/dl: 7 units Bedtime: Bolus Insulin: Novolog < 80 mg/dl: no coverage 80-100 mg/dl: no coverage 101-120 mg/dl: no coverage 121-150 mg/dl: no coverage 151-200 mg/dl: no coverage 201-250 mg/dl: no coverage 251-300 mg/dl: 2 units 301-350 mg/dl: 3 units 351-400 mg/dl: 4 units > 400 mg/dl: 5 units Subjective Subjective: His po intake has been poor. Objective Last 24 Hrs of Vital Signs/I&O Vital Signs Date Time Temp Pulse Resp B/P B/P Pulse O2 O2 Flow FiO2 Mean Ox Delivery Rate 09/22 0748 64 148/60 09/22 0546 97.8 60 18 138/70 96 09/21 2236 CPAP 09/21 2232 98.8 68 18 132/64 94 Room Air 09/21 2118 60 97 09/22 2027 152/62 09/21 1449 98.1 66 18 124/74 96 Room Air Intake & Output 09/22 1600 09/22 0800 09/22 0000 Intake Total 210 Output Total 300 950 Balance -90 -950 Intake, IV 110 Intake, Oral 100 Number 2 Bowel Movements Output, Urine 300 950 Patient 233 lb Weight Weight Bed scale Measurement Method Findings Pertinent Lab/Shady Results: Laboratory Tests 09/22 0625 Chemistry Sodium (137 - 145 mmol/L) 139 Potassium (3.5 - 5.1 mmol/L) 3.9 Chloride (98 - 107 mmol/L) 106 Carbon Dioxide (22 - 30 mmol/L) 24 Anion Gap (5 - 16) 10 BUN (9 - 20 mg/dL) 27 H Creatinine (0.7 - 1.2 mg/dL) 1.5 H Estimated GFR (>60 ml/min) 48 L BUN/Creatinine Ratio (7 - 25 %) 18.0 Hematology CBC w Diff NO MAN DIFF REQ WBC (4.8 - 10.8 /CUMM) 5.4 RBC (4.70 - 6.10 /CUMM) 2.82 L Hgb (14.0 - 18.0 G/DL) 7.7 L Hct (42 - 52 %) 23.6 L MCV (80.0 - 94.0 FL) 83.7 MCH (27.0 - 31.0 PG) 27.3 MCHC (33.0 - 37.0 G/DL) 32.6 L RDW (11.5 - 14.5 %) 18.4 H Plt Count (130 - 400 /CUMM) 271 MPV (7.4 - 10.4 FL) 9.6 Gran % (42.2 - 75.2 %) 57.8 Lymphocytes % (20.5 - 51.1 %) 23.6 Monocytes % (1.7 - 9.3 %) 14.2 H Eosinophils % (0 - 5 %) 3.3 Basophils % (0.0 - 2.0 %) 1.1 Absolute Granulocytes (1.4 - 6.5 /CUMM) 3.1 Absolute Lymphocytes (1.2 - 3.4 /CUMM) 1.3 Absolute Monocytes (0.10 - 0.60 /CUMM) 0.8 H Absolute Eosinophils (0.0 - 0.7 /CUMM) 0.2 Absolute Basophils (0.0 - 0.2 /CUMM) 0.1
--- NOTE | 2017-09-22 11:31 | Patient Discharge Instructions ---
Discharge Instructions General Discharge Information You were seen/treated for: rt foot abscess, sepsis, endocarditis, resolved respiratory failure You had these procedures: Incision & drainage and primary closure of rt foot abscess Watch for these problems: If you have any of these, please viosit your nearest emergency department: Chest pain, shortness of breath, heart racing fast, fever, chills, worsening pain or drainage from foot Special Instructions: -Please do a repeat CBC one week within discharge - Please visit your primary care physician within one week after discharge and let them know of your recent admission to [facility] -please visit your brewery pumper within 1 week of discharge -Please visit your airframe technical officer within one week of discharge -Please visit your professor of sociology within one week of d/c Diet Recommended Diet: Heart Healthy Activity Activity Self Limited: Yes Acute Coronary Syndrome Inclusion Criteria At DC or during hospital stay patient has or had the following: ACS DIAGNOSIS No Discharge Core Measures Meds if any: Prescribed or Continued at Discharge Meds if any: NOT Prescribed or Continued at Discharge Congestive Heart Failure Inclusion Criteria At DC or during hospital stay patient has or had the following: CHF DIAGNOSIS No Discharge Core Measures Meds if any: Prescribed or Continued at Discharge Meds if any: NOT Prescribed or Continued at Discharge Cerebrovascular accident Inclusion Criteria At DC or during hospital stay patient has or had the following: CVA/TIA Diagnosis Yes Discharge Core Measures Meds if any: Prescribed or Continued at Discharge Meds if any: NOT Prescribed or Continued at Discharge Venous thromboembolism Inclusion Criteria VTE Diagnosis No VTE Type NONE VTE Confirmed by (Test) NONE Discharge Core Measures - Per Current guidelines, there needs to be overlap - treatment for the first 5 days of Warfarin therapy. - If discharged on Warfarin prior to 5 days of - overlap therapy, the patient will need to be - assessed for post discharge needs including - *Post discharge parental anticoagulation - *Warfarin and/or parental anticoagulation education - *Follow up date to check INR post discharge At least 5 days overlap therapy as Inpatient No Meds if any: Prescribed or Continued at Discharge Note: Overlap Therapy is Warfarin and Anticoagulant Meds if any: NOT Prescribed or Continued at Discharge
[2017-09-22] MEDS ORDERED: ELIQUIS5 M1 PO (11:38)
[2017-09-22] MEDS ORDERED: AMPICILLIN SODIU2 G2 IV (12:06)
[2017-09-22 14:08] VITALS: BP 129/65
--- NOTE | 2017-09-22 15:41 | PN- Infect Dx ---
Subjective Subjective: Resting comfortably not in any acute distress. No issues overnight reported by nursing staff. reports mild discmfort R lower extremity. No fever or chills. Poor appetite. Formed stool today. Review of Systems Comments: 12 points reviewed as noted, otherwise negative. Objective Last 24 Hrs of Vital Signs/I&O Vital Signs Date Time Temp Pulse Resp B/P B/P Pulse O2 O2 Flow FiO2 Mean Ox Delivery Rate 09/22 1408 98.8 61 18 129/65 97 Room Air 09/22 1000 96 Room Air 09/22 0748 64 148/60 09/22 0546 97.8 60 18 138/70 96 09/21 2236 CPAP 09/21 2233 98.8 68 18 132/64 94 Room Air 09/21 2118 60 97 09/21 2028 152/62 Intake & Output 09/22 1600 09/22 0800 09/22 0000 Intake Total 600 210 Output Total 300 950 Balance 600 -90 -950 Intake, IV 200 110 Intake, Oral 400 100 Number 2 Bowel Movements Output, Urine 300 950 Patient 233 lb Weight Weight Bed scale Measurement Method Physical Exam Other Physical Findings: He appears comfortable, currently off BiPAP, but in no acute distress HEENT: AT, no thrush Neck: No JVD Heart: S1 S2 present, no r/g Pro-Line in place in the right upper chest with no inflammation at the site Lungs: Good insp effrt, no wheezing, rales at the right base Extremities: R foot dressing intact Skin: warm and dry Results Last 24 Hours of Lab Results: Laboratory Tests 09/22 0625 Chemistry Sodium (137 - 145 mmol/L) 139 Potassium (3.5 - 5.1 mmol/L) 3.9 Chloride (98 - 107 mmol/L) 106 Carbon Dioxide (22 - 30 mmol/L) 24 Anion Gap (5 - 16) 10 BUN (9 - 20 mg/dL) 27 H Creatinine (0.7 - 1.2 mg/dL) 1.5 H Estimated GFR (>60 ml/min) 48 L BUN/Creatinine Ratio (7 - 25 %) 18.0 Hematology CBC w Diff NO MAN DIFF REQ WBC (4.8 - 10.8 /CUMM) 5.4 RBC (4.70 - 6.10 /CUMM) 2.82 L Hgb (14.0 - 18.0 G/DL) 7.7 L Hct (42 - 52 %) 23.6 L MCV (80.0 - 94.0 FL) 83.7 MCH (27.0 - 31.0 PG) 27.3 MCHC (33.0 - 37.0 G/DL) 32.6 L RDW (11.5 - 14.5 %) 18.4 H Plt Count (130 - 400 /CUMM) 271 MPV (7.4 - 10.4 FL) 9.6 Gran % (42.2 - 75.2 %) 57.8 Lymphocytes % (20.5 - 51.1 %) 23.6 Monocytes % (1.7 - 9.3 %) 14.2 H Eosinophils % (0 - 5 %) 3.3 Basophils % (0.0 - 2.0 %) 1.1 Absolute Granulocytes (1.4 - 6.5 /CUMM) 3.1 Absolute Lymphocytes (1.2 - 3.4 /CUMM) 1.3 Absolute Monocytes (0.10 - 0.60 /CUMM) 0.8 H Absolute Eosinophils (0.0 - 0.7 /CUMM) 0.2 Absolute Basophils (0.0 - 0.2 /CUMM) 0.1 Last 24 Hours of Shady Results: SPEC #: [id number] JOSE MARIA: 09/12/17 STATUS: COMP RECD: 09/12/[address]: Shai Brasher MD [facility] [address]: Margot Pierre DO SPDESC: ALPHONSO Teixeira MD, Jose Anand MD,Yordy Fermin ORDERED: XTRM CULT COMMENT: TYPE OF SPECIMEN: DEEP Procedure Result > GRAM STAIN Final 09/13/17-1318 WHITE BLOOD CELLS FEW GRAM POSITIVE COCCI MODERATE IN PAIRS AND CHAINS > EXTREMITIES CULTURE Final 09/14/17-1100 Heavy growth of: BETA STREP GROUP B Called to/Readback by LILY OWENS by [email or web address] 09/13/17 1440 Penicillin and Ampicillin are drugs of choice for beta-hemolytic streptococcal infections. Susceptibility testing of penicillins and other beta-lactams are not routinely performed because non-susceptible isolates have only rarely been reported. Note: If patient is allergic to Penicillin, the laboratory can perform Clindamycin testing upon request. Please call within 5 days of final report. Recent Imaging Studies: PROLINE INSERTION (TUNNELED PICC) CLINICAL HISTORY: 61-year-old male requiring proline for long-term IV antibiotics. INTERVENTIONAL RADIOLOGIST: Nadeem Trevizo M.D. MEDICATION: - 1% lidocaine used for local anesthetic, 10 mL. -50 mcg of fentanyl was administered intravenously by a dedicated radiology nurse under my direct supervision. FLUOROSCOPY TIME: 0.6 minutes DOSE AREA PRODUCT: 2.4 Gy-cm2 (ignacio-centimeter squared) PROCEDURE IN DETAIL: Informed consent was obtained from the patient's prior to the procedure. During this process, the procedure and potential alternatives were explained to the patient and his along with the intended outcome and benefits. The risks of the procedure including the possibility of an unsuccessful procedure, as well as the risk of not doing the procedure were discussed. The patient and his were given the opportunity to ask questions regarding the procedure and appeared competent to make decisions. A signed consent form which documents this discussion was placed in the medical record. Following informed consent, the patient was placed supine on the fluoroscopic table. A time out procedure was performed. The right neck and upper chest were prepped and draped in usual sterile fashion. All elements of maximal sterile barrier technique were followed including use of cap, mask, sterile gown, sterile gloves, a sterile full body drape and hand hygiene. The skin was prepared with 2% chlorhexidine for cutaneous antisepsis and sterile ultrasound preparation with sterile gel and probe cover was performed when applicable. Real-time ultrasound was performed to obtained venous mapping and vascular access assessment. Using standard interventional, sterile and Seldinger technique a micro-stick system was utilized to enter into the right internal jugular vein. A wire was introduced into the superior vena cava and measurements were taken. The needle was exchanged for a peel-away sheath. The wire was advanced into the IVC to confirm venous placement. At this time the tunneling location was determined and anesthetized with 1% lidocaine with epinephrine. A small jay was made in the upper right chest and the catheter was tunneled subcutaneously to the venotomy site. The wire and inner portion of the peel-away sheath were then quickly removed and the overlying catheter advanced through the peel-away sheath. Fluoroscopic imaging was used to verify positioning at the cavoatrial junction. The lumen was aspirated and flushed to ensure patency. The PROLINE catheter was secured into position using a StatLock device. A sterile dressing was placed over the site. The venotomy site was closed using Dermabond. The patient tolerated the procedure well and was discharged from the department in good condition. ULTRASOUND-GUIDED VASCULAR ACCESS: Ultrasound was used to identify the right internal jugular vein. The right internal jugular vein was confirmed to be patent. Real time imaging confirmed needle access into the right internal jugular vein. An image was saved for permanent recording in PACS. COMPLICATIONS: None. IMPRESSION: Successful ultrasound and fluoroscopically guided placement of a PROLINE catheter via the right internal jugular vein. DICTATED BY: Nadeem Trevizo MD DATE/TIME DICTATED:09/19/171706 HALVER MACHINE OPERATOR:REGI DATE/TIME TRANSCRIBED:09/19/171706 Assessment/Plan ID Impression: 1. Strep gr B sepsis/bacteremia/mitral valve IE. 2. Acute on chronic renal failure, secondary to ATN, Cr stable. 3. Right lower extremity foot abscess and fractures, s/p debridement (09/15/17). 4. Improved hypoxic respiratory failure. 6. Atrial fibrillation, in sinus rhythm. 7. CVA. 8. Abx associated diarrhea, C. difficile assay negative. 1 Suggestion: 1. 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 His infection was not felt to extend to the bone, but he will require a 6 week course of IV antibiotics for endocarditis, based on his JESUS findings of a mitral valve vegetation. His hospital course has also been complicated by renal failure, which continues to improve, infarcts to the brain, likely embolic. F/U cardio thoracic sx recom regarding valve replacement. 2. CBC, BMP, LFT's, ESR, CRP weekly while on iv abx. 3. Local wound care per sx.
[2017-09-22 22:34] VITALS: BP 158/88
[2017-09-23 05:49] LABS: ABSOLUTE BASOPHIL COUNT 0.1 /CUMM (0.0-0.2); ABSOLUTE EOSINOPHIL COUNT 0.1 /CUMM (0.0-0.7); ABSOLUTE GRANULOCYTE CT 3.3 /CUMM (1.4-6.5); ABSOLUTE LYMPH COUNT 1.3 /CUMM (1.2-3.4); ABSOLUTE MONOCYTE COUNT 0.8 /CUMM (0.10-0.60); BASOPHIL % 1.2 % (0.0-2.0); EOSINOPHIL % 2.5 % (0-5); GRANULOCYTE % 59.3 % (42.2-75.2); HEMATOCRIT 23.7 % (42-52); MEAN CORPUSCULAR HGB 27.2 PG (27.0-31.0); MEAN CORPUSCULAR HGB CONC 32.6 G/DL (33.0-37.0); MEAN CORPUSCULAR VOLUME 83.4 FL (80.0-94.0); MEAN PLATELET VOLUME 8.9 FL (7.4-10.4); PLATELET COUNT 256 /CUMM (130-400); RED BLOOD CELL CT 2.84 /CUMM (4.70-6.10); WHITE BLOOD CELL COUNT 5.5 /CUMM (4.8-10.8)
[2017-09-23 06:23] VITALS: BP 128/66
--- NOTE | 2017-09-23 07:30 | PN- Housestaff ---
Akash Garza 09/23/17 0729: Subjective Follow-up For: Right foot abscess Tele-Events Since Last Visit: SB, NSR Subjective: Patient seen and examined lying comfortably in bed. No acute distress. No events overnight. No new complaints. Patient is feeling much better. Review of Systems Constitutional: Reports: see HPI. Objective Last 24 Hrs of Vital Signs/I&O Vital Signs Date Time Temp Pulse Resp B/P B/P Pulse O2 O2 Flow FiO2 Mean Ox Delivery Rate 09/23 1046 97.7 63 20 138/70 09/23 1045 97.7 63 20 138/70 09/23 0739 63 138/70 09/23 0623 97.7 62 20 128/66 98 Room Air 09/23 0324 63 96 09/22 2339 CPAP 09/22 2234 97.9 60 18 158/88 97 Room Air 09/22 2158 60 94 09/22 2001 59 164/74 Intake & Output 09/23 1600 09/23 0800 09/23 0000 Intake Total 650 370 100 Output Total 1000 800 Balance 650 -630 -700 Intake, IV 320 Intake, Oral 650 50 100 Number 1 Bowel Movements Output, Urine 1000 800 Patient 231 lb Weight Physical Exam General Appearance: Alert, Oriented X3, Cooperative, No Acute Distress Skin Temp/Moisture Exam: Warm/Dry Sepsis Skin Exam (color): Normal for Ethnicity HEENT: Atraumatic, PERRLA, EOMI Neck: Supple Cardiovascular: Regular Rate, Normal S1, Normal S2 Lungs: Clear to Auscultation Abdomen: Soft, No Tenderness Extremities: Right foot swollen, covered in dressing Current Medications: Current Medications Sig/Jasvir Start time Last Medication Dose Route Stop Time Status Admin Acetaminophen 1,000 MG .STK-MED ONE 09/23 0506 DC IV 09/23 0507 Acetaminophen 650 MG Q6P PRN 09/06 0345 DCD PO Acetaminophen 1,000 MG Q6P PRN 09/06 0345 DCD 09/23 IV 0508 Albuterol Sulfate 3 ML Q4P PRN 09/15 1715 DCD INH Ampicillin 2,000 MG Q6 09/16 1200 DCD 09/23 Sodium Chloride 100 ML IV 1141 Apixaban 5 MG BID 09/19 2100 DCD 09/23 PO 0739 Aspirin 81 MG DAILY 09/15 1043 DCD 09/23 PO 0739 Chlorhexidine 15 ML BID 09/11 09 DCD 09/23 Gluconate PO 0744 Folic Acid 1 MG DAILY 09/07 1023 DCD 09/23 PO 0739 Hydromorphone HCl 1 MG Q4 PRN 09/18 0028 DCD 09/23 IV 0939 Insulin Aspart 0 TIDAC/HS 09/21 2100 DCD SC Insulin Detemir 10 UNITS QAM 09/23 0900 DCD SC Insulin Detemir 20 UNITS QAM 09/22 0900 DC 09/23 SC 0740 Lactobacillus 1 CAP BID 09/20 2100 DCD 09/23 Acidophilus PO 0739 Metoprolol Tartrate 100 MG BID 09/11 09 DCD 09/23 PO 0739 Multivitamins 1 TAB DAILY 09/07 1023 DCD 09/23 PO 0740 Omeprazole 40 MG DAILY AC 09/23 07 DCD 09/23 PO 0504 Thiamine HCl 50 MG DAILY 09/07 1023 DCD 09/23 PO 0740 Zinc Oxide 1 GATO TID PRN 09/11 1530 DCD 09/21 TOP 1818 Last 24 Hrs of Lab/Shady Results Last 24 Hrs of Labs/Mics: Laboratory Tests 09/23/17 0520: Anion Gap 8, Estimated GFR 52 L, BUN/Creatinine Ratio 16.4, Glucose 86, Calcium 8.2 L, Total Bilirubin 0.5, Direct Bilirubin 0.3, AST 42, ALT 34, Alkaline Phosphatase 162 H, C-Reactive Prot, Quant 3.8 H, Total Protein 6.5, Albumin 2.4 L, CBC w Diff NO MAN DIFF REQ, RBC 2.84 L, MCV 83.4, MCH 27.2, MCHC 32.6 L, RDW 18.0 H, MPV 8.9, Gran % 59.3, Lymphocytes % 22.9, Monocytes % 14.1 H, Eosinophils % 2.5, Basophils % 1.2, Absolute Granulocytes 3.3, Absolute Lymphocytes 1.3, Absolute Monocytes 0.8 H, Absolute Eosinophils 0.1, Absolute Basophils 0.1, ESR Westergren > 130 H Assessment/Plan Assessment: 65-year-old male with PMH of DM, gout, DC, HTN, HLD, admitted to [facility] after 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 As per patient had sudden onset dysphasia and partial facial drooping. On admission patient's labs showed leukocytosis and EKG showed A. fib with RVR with HR in the 180s. Patient was admitted to ICU for further management. 1. Acute hypoxemic respiratory failure -Resolved -Saturating well on room air 2. A. fib with RVR -Resolved 3. DEMETRIO -Improving 4. Lacunar infarct -No deficits noted 5. Strep B bacteremia with possible endocarditis -Continue antibiotics 6. Elevated troponins (type II DC) -Resolved 7. Hyperglycemia -Blood sugars improving -Continue insulin sliding scale and Levemir 8. Thrombocytopenia (possibly secondary to sepsis) -Resolved 9. Charcot arthropathy with swelling and inflammation of right foot -Continue wound care -Follow-up podiatry DVT ppx: Eliquis Full Code Carb consistent 1 diet Problem List: 1. DEMETRIO (acute kidney injury) 2. Cellulitis Pain Ratin Pain Location: R foot Pain Goal: Remain pain free Pain Plan: N/A Tomorrow's Labs & Rationales: BEP, CBC Queta GARCIA,Eduin 09/23/17 1101: Attending MD Review Statement Attending Statement Attending MD Statement: examined this patient, discuss w/resident/PA/BILINGUAL STUDENT TUTOR, agreed w/resident/PA/BILINGUAL STUDENT TUTOR, reviewed EMR data (avail), discussed with nursing, discussed with case mgmt, amended to note Attending Assessment/Plan: Patient seen and examined. Resting comfortably unless in any acute distress. No issues overnight. No new complaints Friday. He actually feels much better this morning and is excited about being discharged. He has a bed available at the [facility] facility. He is medically stable to be discharged I will complete his antibiotic course at the [facility] facility. He will undergo physical therapy as needed. As well. Follow-up with the podiatry service for wound care recommendations. Patient should follow-up in the wound care clinic as an outpatient.
[2017-09-23] MEDS ORDERED: AMPICILLIN SODIU2 G2 IV (09:05)
[2017-09-23 10:45] VITALS: BP 138/70
[2017-09-23 10:46] VITALS: BP 138/70
--- NOTE | 2017-09-23 11:10 | PN- Diabetes ---
Assessment/Plan Diabetes Assessment: 61 y/o male with a complicated past medical history, was admitted for a stroke complicated with beta strep B sepsis, right LE cellulitis, ? endocarditis, acute renal insufficiency. Now he is in Tele. His po intake has been poor. His glucose level dropped and levemor was decreased to 20 units daily in the morning. In addition, he is on Novolog coverage before meals when his glucose level is > 150. His FSGs were 94, 88 and 83. Plan: 1. further decrease Levemir to 10 units daily in the morning; 2. continue the current Novolog coverage before meals and Novolog coverage at bedtime; 3. monitor FSGs. will follow. Plan: see above Subjective Subjective: His meal intake hasn't been great. Objective Last 24 Hrs of Vital Signs/I&O Vital Signs Date Time Temp Pulse Resp B/P B/P Pulse O2 O2 Flow FiO2 Mean Ox Delivery Rate 09/23 1046 97.7 63 20 138/70 09/23 1045 97.7 63 20 138/70 09/23 0739 63 138/70 09/23 0623 97.7 62 20 128/66 98 Room Air 09/23 0324 63 96 09/22 2339 CPAP 09/22 2234 97.9 60 18 158/88 97 Room Air 09/22 2158 60 94 09/22 2001 59 164/74 09/22 1625 Room Air Room Air 09/22 1408 98.8 61 18 129/65 97 Room Air Intake & Output 09/23 1600 09/23 0800 09/23 0000 Intake Total 370 100 Output Total 1000 800 Balance -630 -700 Intake, IV 320 Intake, Oral 50 100 Output, Urine 1000 800 Patient 231 lb Weight Findings Pertinent Lab/Shady Results: Laboratory Tests 09/23 0520 Chemistry Sodium (137 - 145 mmol/L) 137 Potassium (3.5 - 5.1 mmol/L) 3.8 Chloride (98 - 107 mmol/L) 103 Carbon Dioxide (22 - 30 mmol/L) 26 Anion Gap (5 - 16) 8 BUN (9 - 20 mg/dL) 23 H Creatinine (0.7 - 1.2 mg/dL) 1.4 H Estimated GFR (>60 ml/min) 52 L BUN/Creatinine Ratio (7 - 25 %) 16.4 Glucose (65 - 99 mg/dL) 86 Calcium (8.4 - 10.2 mg/dL) 8.2 L Total Bilirubin (0.2 - 1.3 mg/dL) 0.5 Direct Bilirubin (< 0.4 mg/dL) 0.3 AST (17 - 59 U/L) 42 ALT (21 - 72 U/L) 34 Alkaline Phosphatase (< 127 U/L) 162 H C-Reactive Prot, Quant (<1.0 mg/dL) 3.8 H Total Protein (6.3 - 8.2 g/dL) 6.5 Albumin (3.5 - 5.0 g/dL) 2.4 L Hematology CBC w Diff NO MAN DIFF REQ WBC (4.8 - 10.8 /CUMM) 5.5 RBC (4.70 - 6.10 /CUMM) 2.84 L Hgb (14.0 - 18.0 G/DL) 7.7 L Hct (42 - 52 %) 23.7 L MCV (80.0 - 94.0 FL) 83.4 MCH (27.0 - 31.0 PG) 27.2 MCHC (33.0 - 37.0 G/DL) 32.6 L RDW (11.5 - 14.5 %) 18.0 H Plt Count (130 - 400 /CUMM) 256 MPV (7.4 - 10.4 FL) 8.9 Gran % (42.2 - 75.2 %) 59.3 Lymphocytes % (20.5 - 51.1 %) 22.9 Monocytes % (1.7 - 9.3 %) 14.1 H Eosinophils % (0 - 5 %) 2.5 Basophils % (0.0 - 2.0 %) 1.2 Absolute Granulocytes (1.4 - 6.5 /CUMM) 3.3 Absolute Lymphocytes (1.2 - 3.4 /CUMM) 1.3 Absolute Monocytes (0.10 - 0.60 /CUMM) 0.8 H Absolute Eosinophils (0.0 - 0.7 /CUMM) 0.1 Absolute Basophils (0.0 - 0.2 /CUMM) 0.1 ESR Westergren (0 - 10 MM) > 130 H
--- NOTE | 2017-09-23 12:16 | PN- Infect Dx ---
Subjective Subjective: Reports discomfort R lower extremity. No fever or chills. Improved appetite. No diarrhea. Review of Systems Comments: 12 points reviewed as noted, otherwise neg. Objective Last 24 Hrs of Vital Signs/I&O Vital Signs Date Time Temp Pulse Resp B/P B/P Pulse O2 O2 Flow FiO2 Mean Ox Delivery Rate 09/23 1046 97.7 63 20 138/70 09/23 1045 97.7 63 20 138/70 09/23 0739 63 138/70 09/23 0623 97.7 62 20 128/66 98 Room Air 09/23 0324 63 96 09/22 2339 CPAP 09/22 2234 97.9 60 18 158/88 97 Room Air 09/22 2158 60 94 09/22 2001 59 164/74 09/22 1625 Room Air Room Air 09/22 1408 98.8 61 18 129/65 97 Room Air Intake & Output 09/23 1600 09/23 0800 09/23 0000 Intake Total 370 100 Output Total 1000 800 Balance -630 -700 Intake, IV 320 Intake, Oral 50 100 Output, Urine 1000 800 Patient 231 lb Weight Physical Exam Other Physical Findings: Comfortable, in no acute distress HEENT: AT, no thrush Neck: No JVD Heart: S1 S2 present, no m/r/g Pro-Line in place in the right upper chest with no inflammation at the site Lungs: Good insp effort, no wheezing Extremities: R foot dressing intact Skin: warm and dry Results Last 24 Hours of Lab Results: Laboratory Tests 09/23 0520 Chemistry Sodium (137 - 145 mmol/L) 137 Potassium (3.5 - 5.1 mmol/L) 3.8 Chloride (98 - 107 mmol/L) 103 Carbon Dioxide (22 - 30 mmol/L) 26 Anion Gap (5 - 16) 8 BUN (9 - 20 mg/dL) 23 H Creatinine (0.7 - 1.2 mg/dL) 1.4 H Estimated GFR (>60 ml/min) 52 L BUN/Creatinine Ratio (7 - 25 %) 16.4 Glucose (65 - 99 mg/dL) 86 Calcium (8.4 - 10.2 mg/dL) 8.2 L Total Bilirubin (0.2 - 1.3 mg/dL) 0.5 Direct Bilirubin (< 0.4 mg/dL) 0.3 AST (17 - 59 U/L) 42 ALT (21 - 72 U/L) 34 Alkaline Phosphatase (< 127 U/L) 162 H C-Reactive Prot, Quant (<1.0 mg/dL) 3.8 H Total Protein (6.3 - 8.2 g/dL) 6.5 Albumin (3.5 - 5.0 g/dL) 2.4 L Hematology CBC w Diff NO MAN DIFF REQ WBC (4.8 - 10.8 /CUMM) 5.5 RBC (4.70 - 6.10 /CUMM) 2.84 L Hgb (14.0 - 18.0 G/DL) 7.7 L Hct (42 - 52 %) 23.7 L MCV (80.0 - 94.0 FL) 83.4 MCH (27.0 - 31.0 PG) 27.2 MCHC (33.0 - 37.0 G/DL) 32.6 L RDW (11.5 - 14.5 %) 18.0 H Plt Count (130 - 400 /CUMM) 256 MPV (7.4 - 10.4 FL) 8.9 Gran % (42.2 - 75.2 %) 59.3 Lymphocytes % (20.5 - 51.1 %) 22.9 Monocytes % (1.7 - 9.3 %) 14.1 H Eosinophils % (0 - 5 %) 2.5 Basophils % (0.0 - 2.0 %) 1.2 Absolute Granulocytes (1.4 - 6.5 /CUMM) 3.3 Absolute Lymphocytes (1.2 - 3.4 /CUMM) 1.3 Absolute Monocytes (0.10 - 0.60 /CUMM) 0.8 H Absolute Eosinophils (0.0 - 0.7 /CUMM) 0.1 Absolute Basophils (0.0 - 0.2 /CUMM) 0.1 ESR Westergren (0 - 10 MM) > 130 H Last 24 Hours of Shady Results: reviewed Recent Imaging Studies: [email or web address] Assessment/Plan ID Impression: 1. Strep gr B sepsis/bacteremia/mitral valve IE. 2. Acute on chronic renal failure, secondary to ATN, Cr stable. 3. Right lower extremity foot abscess and fractures, s/p debridement (09/15/17). 4. Improved hypoxic respiratory failure. 6. Atrial fibrillation, in sinus rhythm. 7. CVA. 8. Abx associated diarrhea (self limited), C. difficile assay negative. Suggestion: 1. 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 He will require a 6 week course of IV antibiotics for endocarditis, based on his JESUS findings of a mitral valve vegetation. His hospital course has also been complicated by renal failure, which continues to improve, infarcts to the brain, likely embolic. F/U cardio thoracic sx recom regarding valve replacement. 2. CBC, BMP, LFT's, ESR, CRP weekly while on iv abx. 3. Local wound care per sx.
--- NOTE | 2017-09-23 13:36 | PN- Podiatry ---
Subjective Subjective: Patient is seen and evaluated at bedside accompanied by his postoperative day 4 multiple incision and drainage procedures with delayed primary closure. The patient states that he "feels great", and he has been cleared for transfer to [facility] for short-term rehabilitation. He denies fever, chills, nausea, vomiting, diaphoresis, shortness of breath, chest pain at the time of my examination. Review of Systems: A 14 point review of systems was performed, and was found to be negative apart from the patient's complaints described above in the history of present illness. Objective Vital Signs and I&Os Vital Signs Date Time Temp Pulse Resp B/P B/P Pulse O2 O2 Flow FiO2 Mean Ox Delivery Rate 09/23 1046 97.7 63 20 138/70 09/23 1045 97.7 63 20 138/70 09/23 0739 63 138/70 09/23 0623 97.7 62 20 128/66 98 Room Air 09/23 0324 63 96 09/22 2339 CPAP 09/22 2234 97.9 60 18 158/88 97 Room Air 09/22 2158 60 94 09/22 2001 59 164/74 09/22 1625 Room Air Room Air 09/22 1408 98.8 61 18 129/65 97 Room Air Intake & Output 09/23 1600 09/23 0800 09/23 0000 09/22 1600 09/22 0800 09/22 0000 Intake Total 370 100 600 210 Output Total 1000 800 300 950 Balance -630 -700 600 -90 -950 Intake, IV 320 200 110 Intake, Oral 50 100 400 100 Number 2 Bowel Movements Output, Urine 1000 800 300 950 Patient 231 lb 233 lb Weight Weight Bed scale Measurement Method Physical Exam: Patient continues to have weakly palpable pedal pulses, but his temperature gradient is normalized in both lower extremities, there is no focal calor over the skin lesions. Capillary refill time is 3 seconds in all 10 toes. Patient continues to be insensate throughout the majority of his foot from the distal tips of the toes to the heel pad equal bilateral. The incision line dorsal lateral on the hindfoot shows minimal skin breakdown secondary to the residual edema from his condition, but is otherwise clean dry and intact. There is also maceration from the serous drainage both locally in the incision and along the lateral midfoot. The patient continues to have stabilized eschars over the right lateral malleolus and styloid process, and the styloid process lesion has begun to epithelialize. Current Medications: Current Medications Sig/Jasvir Start time Last Medication Dose Route Stop Time Status Admin Acetaminophen 1,000 MG .STK-MED ONE 09/23 0506 DC IV 09/23 0507 Acetaminophen 1,000 MG .STK-MED ONE 09/22 1737 DC IV 09/22 1738 Acetaminophen 650 MG Q6P PRN 09/06 0345 AC PO Acetaminophen 1,000 MG Q6P PRN 09/06 0345 AC 09/23 IV 0508 Albuterol Sulfate 3 ML Q4P PRN 09/15 1715 AC INH Ampicillin 2,000 MG Q6 09/16 1200 AC 09/23 Sodium Chloride 100 ML IV 1141 Apixaban 5 MG BID 09/19 2100 AC 09/23 PO 0739 Aspirin 81 MG DAILY 09/15 1043 AC 09/23 PO 0739 Chlorhexidine 15 ML BID 09/11 0900 AC 09/23 Gluconate PO 0744 Folic Acid 1 MG DAILY 09/07 1023 AC 09/23 PO 0739 Hydromorphone HCl 1 MG Q4 PRN 09/18 0028 AC 09/23 IV 0939 Insulin Aspart 0 TIDAC/HS 09/21 2100 AC SC Insulin Detemir 10 UNITS QAM 09/23 0900 AC SC Insulin Detemir 20 UNITS QAM 09/22 0900 DC 09/23 SC 0740 Lactobacillus 1 CAP BID 09/20 2100 AC 09/23 Acidophilus PO 0739 Metoprolol Tartrate 100 MG BID 09/11 0900 AC 09/23 PO 0739 Multivitamins 1 TAB DAILY 09/07 1023 AC 09/23 PO 0740 Omeprazole 40 MG DAILY AC 09/23 0700 AC 09/23 PO 0504 Thiamine HCl 50 MG DAILY 09/07 1023 AC 09/23 PO 0740 Zinc Oxide 1 GATO TID PRN 09/11 1530 AC 09/21 TOP 1818 Results Last 48 Hours of Labs: Laboratory Tests 09/23 09/22 0520 0625 Chemistry Sodium (137 - 145 mmol/L) 137 139 Potassium (3.5 - 5.1 mmol/L) 3.8 3.9 Chloride (98 - 107 mmol/L) 103 106 Carbon Dioxide (22 - 30 mmol/L) 26 24 Anion Gap (5 - 16) 8 10 BUN (9 - 20 mg/dL) 23 H 27 H Creatinine (0.7 - 1.2 mg/dL) 1.4 H 1.5 H Estimated GFR (>60 ml/min) 52 L 48 L BUN/Creatinine Ratio (7 - 25 %) 16.4 18.0 Glucose (65 - 99 mg/dL) 86 Calcium (8.4 - 10.2 mg/dL) 8.2 L Total Bilirubin (0.2 - 1.3 mg/dL) 0.5 Direct Bilirubin (< 0.4 mg/dL) 0.3 AST (17 - 59 U/L) 42 ALT (21 - 72 U/L) 34 Alkaline Phosphatase (< 127 U/L) 162 H C-Reactive Prot, Quant (<1.0 mg/dL) 3.8 H Total Protein (6.3 - 8.2 g/dL) 6.5 Albumin (3.5 - 5.0 g/dL) 2.4 L Hematology CBC w Diff NO MAN DIFF REQ NO MAN DIFF REQ WBC (4.8 - 10.8 /CUMM) 5.5 5.4 RBC (4.70 - 6.10 /CUMM) 2.84 L 2.82 L Hgb (14.0 - 18.0 G/DL) 7.7 L 7.7 L Hct (42 - 52 %) 23.7 L 23.6 L MCV (80.0 - 94.0 FL) 83.4 83.7 MCH (27.0 - 31.0 PG) 27.2 27.3 MCHC (33.0 - 37.0 G/DL) 32.6 L 32.6 L RDW (11.5 - 14.5 %) 18.0 H 18.4 H Plt Count (130 - 400 /CUMM) 256 271 MPV (7.4 - 10.4 FL) 8.9 9.6 Gran % (42.2 - 75.2 %) 59.3 57.8 Lymphocytes % (20.5 - 51.1 %) 22.9 23.6 Monocytes % (1.7 - 9.3 %) 14.1 H 14.2 H Eosinophils % (0 - 5 %) 2.5 3.3 Basophils % (0.0 - 2.0 %) 1.2 1.1 Absolute Granulocytes (1.4 - 6.5 /CUMM) 3.3 3.1 Absolute Lymphocytes (1.2 - 3.4 /CUMM) 1.3 1.3 Absolute Monocytes (0.10 - 0.60 /CUMM) 0.8 H 0.8 H Absolute Eosinophils (0.0 - 0.7 /CUMM) 0.1 0.2 Absolute Basophils (0.0 - 0.2 /CUMM) 0.1 0.1 ESR Westergren (0 - 10 MM) > 130 H Assessment/Plan Assessment/Plan 61-year-old male with type 2 diabetes, with 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 Patient was seen and evaluated at bedside A dry sterile dressing with ample cast padding was applied to the right foot, and Betadine paint was used on the decubitus lesions as well as the incision line and macerated areas of skin. The patient was informed of his new findings of Charcot neuroarthropathy in the right foot, and in the context of his overall deconditioning, I have cleared him for basic out of bed to chair, and partial weightbearing activities with the assistance of a walker. He is aware that he will be need to be braced with an ankle-foot orthosis on this extremity long-term, but this should be considered only after he has reconditioned himself and completed IV antibiotic therapy and have completely healed his skin lesions and incision. The case was discussed with Dr. Gil on Friday, and I agree that he needs a long-term course of intravenous directed therapy. In light of my learning of his impending discharge today, my final recommendations for discharge are as follows: Wound Care: Betadine pain to the incision line as well as the decubitus lesions every other day, with a well-padded dry sterile dressing. Decubitus prophylaxis protocol at all times with a pillow under the calves. Weightbearing: He is clear for out of bed to chair and basic partial weightbearing activities for reconditioning with the assistance of a walker, but aside from these basic needs for his overall reconditioning, he should be resting with the foot elevated as much as possible. Follow-up: He has been arranged for outpatient follow-up at the [facility] wound care center on October 02 at 12:45 PM with Rylan Caballero DPM. I informed the patient and his approximately 1 week ago at the beginning of my time consulting upon him and managing him that I will be relocating after today, and this will be my last time seeing him in person. I am available for further questions and concerns at [phone]. Core Measures Venous Thromboembolism VTE Risk Factors Age>40 No Mechanical VTE Prophylaxis d/t N/A MechProphylax Ordered No VTE Pharm Prophylaxis d/t NA PharmProphylax ordered
[2017-09-24] MEDS ORDERED: CYCLOSET PO (13:04)
== END 2017-09-23 14:23 | DRG 870 ==
LOC: ERH 17:33 → CRI 22:25 → ERHI 22:25 → ENRESERV 23:26 → EDBEDREQ 09-06 00:28 → ERHI 09-06 00:30 → ENRESERV 09-06 00:33 → CRI 09-06 00:47 → ENTRNSPT 09-18 13:21 → EDTRNSPTSTS 09-18 13:39 → EDTRNSPT 09-18 13:39 → CMPTRNSPT 09-18 13:53 → 1NO 09-18 14:05 → ENPENDDIS 09-23 10:38 → 1NO 09-23 14:23
PROVIDERS: Emergency Medicine; Internal Medicine; Preventive Medicine Public Health & General Preventive Medicine; Student in an Organized Health Care Education/Training Program
PROC: 5A1955Z Respiratory Ventilation, Greater than 96 Consecutive Hours (ICD-10-PCS; principal; 2017-09-06)
PROC: 0BH17EZ Insertion of Endotracheal Airway into Trachea, Via Natural or Artificial Opening (ICD-10-PCS; 2017-09-06)
PROC: 30233R1 Transfusion of Nonautologous Platelets into Peripheral Vein, Percutaneous Approach (ICD-10-PCS; 2017-09-09)
PROC: B24BZZ4 Ultrasonography of Heart with Aorta, Transesophageal (ICD-10-PCS; 2017-09-10)
PROC: 0J9Q0ZX Drainage of Right Foot Subcutaneous Tissue and Fascia, Open Approach, Diagnostic (ICD-10-PCS; 2017-09-12)
PROC: 0J9Q0ZX Drainage of Right Foot Subcutaneous Tissue and Fascia, Open Approach, Diagnostic (ICD-10-PCS; 2017-09-15)
PROC: 0J9Q0ZX Drainage of Right Foot Subcutaneous Tissue and Fascia, Open Approach, Diagnostic (ICD-10-PCS; 2017-09-17)
PROC: 0J9Q0ZX Drainage of Right Foot Subcutaneous Tissue and Fascia, Open Approach, Diagnostic (ICD-10-PCS; 2017-09-19)
PROC: 02HV33Z Insertion of Infusion Device into Superior Vena Cava, Percutaneous Approach (ICD-10-PCS; 2017-09-19)
PROC: B5181ZA Fluoroscopy of Superior Vena Cava using Low Osmolar Contrast, Guidance (ICD-10-PCS; 2017-09-19)
PROC: 3E04329 Introduction of Other Anti-infective into Central Vein, Percutaneous Approach (ICD-10-PCS; 2017-09-19)
DX: A40.1 Sepsis due to streptococcus, group B (principal); J96.02 Acute respiratory failure with hypercapnia; J96.01 Acute respiratory failure with hypoxia; G92 Toxic encephalopathy; N17.0 Acute kidney failure with tubular necrosis; I33.0 Acute and subacute infective endocarditis; I63.9 Cerebral infarction, unspecified; E87.2 Acidosis; I13.0 Hypertensive heart and chronic kidney disease with heart failure and stage 1 through stage 4 chronic kidney disease, or unspecified chronic kidney disease; I50.32 Chronic diastolic (congestive) heart failure; I47.1 Supraventricular tachycardia; E87.0 Hyperosmolality and hypernatremia; E46 Unspecified protein-calorie malnutrition; L03.115 Cellulitis of right lower limb; D68.9 Coagulation defect, unspecified; E11.610 Type 2 diabetes mellitus with diabetic neuropathic arthropathy; Z79.4 Long term (current) use of insulin; E78.5 Hyperlipidemia, unspecified; G47.33 Obstructive sleep apnea (adult) (pediatric); I25.2 Old myocardial infarction; K21.9 Gastro-esophageal reflux disease without esophagitis; K74.60 Unspecified cirrhosis of liver; M10.9 Gout, unspecified; Z95.1 Presence of aortocoronary bypass graft; Z95.810 Presence of automatic (implantable) cardiac defibrillator; Z90.49 Acquired absence of other specified parts of digestive tract; Z85.46 Personal history of malignant neoplasm of prostate; I48.91 Unspecified atrial fibrillation; Z79.02 Long term (current) use of antithrombotics/antiplatelets; Z79.82 Long term (current) use of aspirin; R74.0 Nonspecific elevation of levels of transaminase and lactic acid dehydrogenase [LDH]; D69.6 Thrombocytopenia, unspecified; R29.810 Facial weakness; R47.9 Unspecified speech disturbances; H91.90 Unspecified hearing loss, unspecified ear; R79.89 Other specified abnormal findings of blood chemistry; E11.22 Type 2 diabetes mellitus with diabetic chronic kidney disease; N18.9 Chronic kidney disease, unspecified; I05.9 Rheumatic mitral valve disease, unspecified; E11.65 Type 2 diabetes mellitus with hyperglycemia; R19.7 Diarrhea, unspecified; R80.9 Proteinuria, unspecified
CPT/HCPCS: 04007; 1NP; 83883; 84133; 84300; 86160; 86317; 87070; 87075; 87493; 87798; CCU; ERO; 36415; 36592; 71045; 74018; 76881; 77001; 80307; 81001; 82436; 82570; 84165; 87040; 87071; 87086; 87147; 93005; 93010; 93306; 93325; 93970; 94799; 96374; 96375; 97110-GO; 97116-GO; 97161-GP; 97165-GO; 97530-GO; J0131; J0290; J1170; J1642; J1644; J1650; J1815; J1940; J2001; J2060; J2405; J3010; J3490; J7040; J7042; J7060; P9031; Q9957

== ENCOUNTER 2017-09-24 12:52 | Emergency (ER) | payer OTHER ==
[~2017-09-24 12:52] MED LIST changes: +AMPICILLIN SODIU2 G2 IV; +COLCHICINE0.6 M2 PO; +CYCLOSET PO; +ELIQUIS5 M1 PO; +METOPROLOL TART50 M1 PO; +NOVOLOG FL100 UNIT/1 SC
[2017-09-24] MEDS ORDERED: CYCLOSET PO (13:04)
[2017-09-24 13:22] LABS: ABSOLUTE BASOPHIL COUNT 0 /CUMM (0.0-0.2); ABSOLUTE EOSINOPHIL COUNT 0.1 /CUMM (0.0-0.7); ABSOLUTE GRANULOCYTE CT 4.4 /CUMM (1.4-6.5); ABSOLUTE LYMPH COUNT 1.3 /CUMM (1.2-3.4); ABSOLUTE MONOCYTE COUNT 0.7 /CUMM (0.10-0.60); BASOPHIL % 0.6 % (0.0-2.0); GRANULOCYTE % 67.6 % (42.2-75.2); HEMATOCRIT 24.7 % (42-52); MEAN CORPUSCULAR HGB 27.8 PG (27.0-31.0); MEAN CORPUSCULAR HGB CONC 33.5 G/DL (33.0-37.0); MEAN CORPUSCULAR VOLUME 82.8 FL (80.0-94.0); MEAN PLATELET VOLUME 8.3 FL (7.4-10.4); PLATELET COUNT 274 /CUMM (130-400); RED BLOOD CELL CT 2.98 /CUMM (4.70-6.10); WHITE BLOOD CELL COUNT 6.5 /CUMM (4.8-10.8)
[2017-09-24 13:30] LABS: PT 17.2 SEC (9.4-12.5); PTT 31 SEC (25-37)
--- NOTE | 2017-09-24 13:55 | ED GI/GU/ABDOMINAL COMPLAINT ---
History of Present Illness General Chief Complaint: General Adult Stated Complaint: GI BLEED Source: patient, family, old records Exam Limitations: no limitations Vital Signs & Intake/Output Vital Signs & Intake/Output Vital Signs Date Time Temp Pulse Resp B/P B/P Pulse O2 O2 Flow FiO2 Mean Ox Delivery Rate 09/24 1848 98.2 78 18 143/88 98 Room Air Room Air 09/24 1320 97 Room Air Room Air Allergies Coded Allergies: No Known Allergies (02/19/16) Reconcile Medications Ampicillin Sodium 2 GRAM VIAL 1 VIAL IV Q6 INFECTION Apixaban (Eliquis) 5 MG TABLET 5 MG PO BID heart Aspirin (Aspirin*) 81 MG TAB.CHEW 1 TAB PO DAILY HEART HEALTH (Reported) Atorvastatin Calcium 80 MG TABLET 1 TAB PO 1800 CHOLESTEROL (Reported) Bromocriptine Mesylate (Cycloset) 0.8 MG TABLET 1 TAB PO DAILY DIABETES ( Reported) Clopidogrel Bisulfate (Plavix) 75 MG TABLET 1 TAB PO DAILY HEART Please take as prescribed. Colchicine 0.6 MG TABLET 1 TAB PO BID GOUT (Reported) Empagliflozin (Jardiance) 25 MG TABLET 1 TAB PO DAILY DIABETES (Reported) Insulin Aspart, Recombinant (Novolog Flexpen) 100 UNIT/ML INSULN.PEN DM ( Reported) Insulin Glargine,Hum.rec.anlog (Basaglar Kwikpen U-100) 100 UNIT/ML (3 ML) INSULN.PEN 20 UNITS SC QAM DM (Reported) Magnesium Oxide 400 MG TABLET 1 TAB PO BID SUPPLEMENT (Reported) Melatonin 3 MG TABLET 2 TAB PO QPM SLEEP (Reported) Metformin HCl 1,000 MG TABLET 1 TAB PO BID DIABETES (Reported) Metoprolol Tartrate 50 MG TABLET 1 TAB PO BID HEART/BP (Reported) Pantoprazole Sodium (Protonix) 40 MG TABLET.DR 1 TAB PO BID ULCER Please take as prescribed. Suvorexant (Belsomra) 20 MG TABLET 1 TAB PO QPM SLEEP (Reported) Valsartan 320 MG TABLET 1 TAB PO DAILY HEART (Reported) Triage Note: PT DC FROM [place] 1 DAY AGO TO [facility]. RETURNED TO ED FOR RECTAL BLEEDING. STATES HAS BEEN BLEEDING ON/OFF FOR 3 DAYS. HX ENDOCARDITIS ON ABIXABAN AND PLAVIX. ALSO HAS RIGHT CHEST CENTRAL LINE WITH BLEEDING AROUND INSERTION SITE. Triage Nurses Notes Reviewed? yes HPI: Patient presents for evaluation of rectal bleeding over the past 3 days or so. Patient states that he was just released from the hospital after being treated for right foot abscess with possible heart valve involvement (patient's states "a little infection" went to his heart). The patient has felt nauseous for the past 5 days. He has also been having explosive diarrhea over the past few days as well. He was brought to the emergency department not only for the rectal bleeding but also for bleeding from his right subclavian catheter site. Past History Travel History Traveled to [place] past 21 day No Medical History Any Pertinent Medical History? see below for history Neurological: NONE EENT: hearing loss Cardiovascular: hypertension, hyperlipidemia, myocardial infarction Respiratory: obstructive sleep apnea Gastrointestinal: GERD Hepatic: cirrhosis Renal: NONE Musculoskeletal: gout Psychiatric: NONE Endocrine: diabetes Blood Disorders: NONE Cancer(s): prostate cancer HOME HEALTH CARE PHYSICIAN/Reproductive: NONE Other Medical Hx: Recurrent cellulitis left thigh History of MRSA: No History of VRE: No History of CDIFF: No Surgical History Surgical History: CABG, cholecystectomy, RIGHT GREAT TOE WOUND DEBRIDEMENT RIGHT GROIN ABSCESS/DRAIN AICD/pacemaker Psychosocial History Who do you live with Spouse What is your primary language Sami Tobacco Use: Quit >30 days ago ETOH Use: denies use Illicit Drug Use: denies illicit drug use Family History Family History, If Any: FATHER Coronary artery bypass surgery Hx Contributory? No Review of Systems Review of Systems Constitutional: Reports: no symptoms. EENTM: Reports: no symptoms. Respiratory: Reports: no symptoms. Cardiovascular: Reports: no symptoms. GI: Reports: see HPI. Genitourinary: Reports: no symptoms. Musculoskeletal: Reports: no symptoms. Skin: Reports: no symptoms. Neurological/Psychological: Reports: no symptoms. Hematologic/Endocrine: Reports: no symptoms. Immunologic/Allergic: Reports: no symptoms. All Other Systems: Reviewed and Negative Physical Exam Physical Exam Gastrointestinal: see below Comments: Gen.: Well-nourished, well-developed, no acute respiratory distress. Head: Normocephalic, atraumatic. Eyes: Normal inspection bilaterally Ears: Normal inspection bilaterally Nose: Normal inspection Throat/mouth : Moist mucosa Neck: Supple, full range of motion, no goiter Heart: Regular rate and rhythm, no murmurs rubs or gallops Lungs: Clear to auscultation bilaterally with normal air entry Chest: Nontender, red blood contained under the dressing of right subclavian tunneled catheter Back: Normal range of motion Abdomen: Soft, right lower quadrant abdominal tenderness without rebound or guarding, nondistended, normal bowel sounds, mild tympany Extremities: Normal range of motion grossly, equal radial pulses, no cyanosis clubbing or edema Neurologic: Cranial nerves grossly intact, speech is clear Skin: warm and dry Psychiatric: Calm, cooperative, no apparent delusions or hallucinations Rectal: Yellow-brown diarrhea present with excoriated perirectal skin and oozing of red blood, stool tests only slightly heme positive Core Measures ACS in differential dx? No Sepsis Present: No Sepsis Focused Exam Completed? No Progress Differential Diagnosis: GI bleed, hemorrhoids, anal fissure, coagulopathy, DIC Plan of Care: Orders Procedure Date/time Status CULTURE,STOOL 09/24 140 Active C.DIFFICILE 09/24 140 Active Add-on Test (ER Only) 09/24 1352 Active URINALYSIS 09/24 1345 Complete FIBRINOGEN LEVEL 09/24 1310 Complete D-DIMER 09/24 1310 Complete Laboratory Tests 09/24/17 1400: Urine Color YEL, Urine Clarity CLEAR, Urine pH 6.0, Ur Specific [place] 1.020, Urine Protein TRACE H, Urine Ketones TRACE H, Urine Nitrite NEG, Urine Bilirubin NEG, Urine Urobilinogen 0.2, Ur Leukocyte Esterase NEG, Ur Microscopic SEDIMENT EXAMINED, Urine RBC 25-50 H, Urine WBC 15-25 H, Ur Epithelial Cells FEW, Urine Bacteria MOD H, Micro UA Comment BUDDING YEAST H, Urine Hemoglobin LARGE H, Urine Glucose >=1000 H Microbiology 09/24 140 STOOL: Clostridium difficile Toxin A & B - RES 09/24 140 STOOL: Stool Culture - RES Initial ED EKG: NSR, rate (63) Prior EKG: unchanged Comments: 09/24/2017 5:05:50 PM I have updated shruthi on test results. He has asked for ice chips and so we will check his ability to tolerate clear liquids. In regards to the bleeding from his right tunneled subclavian catheter, this dressing will be changed and observed for further bleeding. With review of patient's recent hospitalization, his platelet count is now normal, his d-dimer is improving and is fibrinogen level is normal. I do not believe this patient's to be in DIC at this time. His INR is elevated likely secondary to his cirrhosis and innate coagulation. He does not have GI bleeding as the bleeding is in fact coming from skin excoriation likely secondary to his diarrhea. Departure Departure Disposition: HOME OR SELF CARE Condition: Stable Clinical Impression Primary Impression: Contact dermatitis Qualifiers: Contact dermatitis type: irritant Contact dermatitis trigger: other trigger Qualified Code: L24.89 - Irritant contact dermatitis due to other agents Secondary Impressions: Chronic anticoagulation, Liver disease Referrals: Margot Pierre DO (PCP/Family) Additional Instructions: see w10 Departure Forms: Customer Survey General Discharge Information
[2017-09-24 18:48] VITALS: BP 143/88
== END 2017-09-24 18:51 ==
LOC: ERH 12:52
PROVIDERS: Emergency Medicine
DX: L25.9 Unspecified contact dermatitis, unspecified cause (principal); D68.318 Other hemorrhagic disorder due to intrinsic circulating anticoagulants, antibodies, or inhibitors; K76.9 Liver disease, unspecified
CPT/HCPCS: 81001; 87015; 87045; 87899; 87899-59; 93005; 93010